=== PATIENT | female | born 1950 ===

== ENCOUNTER 2019-12-27 13:24 | Outpatient (REF) | payer MEDICARE, MEDICAID, SELFPAY ==
--- NOTE | 2019-12-27 | MM_ITS ---
EXAMINATION: MM SCREENING DIGITAL BREAST TOMOSYNTHESIS, BILATERAL CLINICAL INFORMATION: Screening. Asymptomatic. The lifetime risk of breast cancer based on the Tyrer-Cuzick Model is 3.3%. COMPARISON: Mammography: August 21, 2018 and studies dating back to January 20, 2016 TECHNIQUE: Digital breast tomosynthesis is performed in both the craniocaudal and mediolateral oblique views along with computer-aided detection (CAD). Synthesized 2D images are generated from the tomosynthesis. FINDINGS: There are scattered areas of fibroglandular density (ACR BI-RADS breast composition Category b). There are no significant masses, abnormal calcifications, or other abnormalities. MM/MM tomosynthesis screening BI IMPRESSION: There are no significant changes from prior study. ASSESSMENT: BI-RADS 1: Negative RECOMMENDATION: Routine annual mammography screening. This patient's information was entered into a reminder system with a target due date for their next mammogram.
== END 2019-12-27 13:25 | disposition home or self-care (01) ==
LOC: HO.MAMMO 13:24
PROVIDERS: PCP Internal Medicine; Visit Provider Internal Medicine
DX: Z12.31 Encounter for screening mammogram for malignant neoplasm of breast (principal)
CPT/HCPCS: 77063; 77067

== ENCOUNTER 2020-05-08 11:56 | Outpatient (REF) | payer MEDICARE, MEDICAID, SELFPAY ==
--- NOTE | ~2020-05-08 | XR_ITS ---
EXAMINATION: XR LUMBOSACRAL SPINE CLINICAL INFORMATION: Back pain. COMPARISON: Radiographs lumbar spine 08/08/2017 TECHNIQUE: Three views of the lumbosacral spine. FINDINGS: There is vertebral segmentation anomaly with 4 rib-bearing lumbar vertebrae and probable bilateral L5 sacralization as noted previously. There is normal lumbar lordosis. The vertebral bodies are normal in height. There is no vertebral compression, spondylolisthesis, or destructive process. There are mild multilevel degenerative changes with mild lumbar vertebral spurring and some mild endplate sclerosis. No significant focal disc narrowing. There is mild facet degeneration lumbosacral junction. The SI joints and visualized sacrum appear normal. XR/XR lumbar spine 2-3V IMPRESSION: 1. Mild degenerative changes similar to 2018. 2. 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 3. No lumbar vertebral compression, spondylolisthesis, or destructive process.
[2020-05-08 13:25] LABS: MANUAL DIFF FLAG NO
[2020-05-08 13:31] LABS: Basophils Absolute Auto 0.1 X10*3/uL (0.0-0.2); Basophils Percent Auto 0.9 % (0-2); Eosinophils Absolute Auto 0.5 X10*3/uL (0.0-0.4); Eosinophils Percent Auto 6.6 % (0-4); Hematocrit 43.1 % (37-47); Hemoglobin 13.8 g/dl (12.0-16.0); Imm Gran Abs Auto 0.01 X10*3/uL (0.00-0.03); Imm Gran Pct Auto 0.1 % (0.0-0.4); Lymphocytes Percent Auto 25.7 % (20-40); Mean Corpuscular Hemoglobin 29.8 pg (27.0-33.0); Mean Corpuscular Volume 93.1 fL (80-98); Mean Platelet Volume 9.9 fL (9.4-12.3); Monocytes Absolute Auto 0.6 X10*3/uL (0.1-1.2); Monocytes Percent Auto 7.5 % (2-11); Neutrophils Absolute Auto 4.5 X10*3/uL (2.0-8.3); Neutrophils Percent Auto 59.2 % (45-73); Platelet Count 346 X10*3/uL (160-400); Red Blood Count 4.63 X10*6/uL (4.20-5.50); Red Cell Distribution Width 11.8 % (11.0-16.0); White Blood Count 7.7 X10*3/uL (4.8-10.8)
[2020-05-08 14:03] LABS: Alanine Aminotransferase 19 U/L (0-31); Albumin Level 4.2 g/dL (3.5-5.0); Alkaline Phosphatase 115 U/L (39-117); Anion Gap 12 (12-20); Aspartate Amino Transferase 24 U/L (5-31); Bilirubin Total 0.8 mg/dL (0.0-1.0); Blood Urea Nitrogen 11 mg/dL (9-16); Calcium 9.2 mg/dL (8.4-10.2); Carbon Dioxide 29 mmol/L (22-29); Chloride 106 mmol/L (96-108); Estimated Glomerular Filt Rate > 60; Glucose Fasting 94 mg/dL (60-99); Potassium 4.1 mmol/L (3.3-5.1); Sodium 143 mmol/L (135-145)
[2020-05-13 13:12] LABS: Vitamin D 25-OH, D2 65 ng/mL; Vitamin D 25-OH, D3 6 ng/mL; Vitamin D 25-OH, Total 71 ng/mL (30-100)
== END 2020-05-08 11:57 | disposition home or self-care (01) ==
LOC: HO.LAB 11:56
PROVIDERS: PCP Internal Medicine; Visit Provider Internal Medicine
DX: M54.9 Dorsalgia, unspecified (principal); E55.9 Vitamin D deficiency, unspecified; D64.9 Anemia, unspecified
CPT/HCPCS: 36415; 72100; 80053; 82306; 85025

== ENCOUNTER 2020-09-30 12:46 | Outpatient (REF) | payer MEDICARE, MEDICAID, SELFPAY ==
--- NOTE | ~2020-09-30 | MM_ITS ---
EXAMINATION: BONE DENSITOMETRY CLINICAL INDICATION: Postmenopausal. COMPARISON: Baseline BD dated 09/08/2018. TECHNIQUE: Using a [employer] DXA System (software version: 13.1) manufactured by [employer], dual-energy x-ray absorptiometry was performed of the lumbar spine and left hip. The images are of good technical quality. Summary results are attached. FINDINGS: AP SPINE L1-L3 (excluding L4): The data of L1-L4 has been changed to exclude the L4 vertebral body, because degenerative changes at this level may cause overestimation of lumbar spine density. Current: BMD 0.936 g/cm2, Z-score -0.4, T-score -1.9, osteopenia, 1.1% decrease from baseline (<5% change is not significant). Baseline: BMD 0.946 g/cm2. LEFT FEMUR, NECK: Current: BMD 0.797 g/cm2, Z-score -0.2, T-score -1.7, osteopenia. Baseline: BMD 0.799 g/cm2. LEFT FEMUR, TOTAL: Current: BMD 0.871 g/cm2, Z-score 0.2, T-score -1.1, osteopenia, 2.6% decrease from baseline (<5% change is not significant). Baseline: BMD 0.894 g/cm2. IDENTIFIED RISK FACTORS: Early menopause. Secondary osteoporosis. Hysterectomy. Bilateral oophorectomy. Low calcium intake. HISTORY OF FRACTURE: None listed. MEDICATIONS: Calcium. Vitamin D. MM/XR DEXA axial skeleton IMPRESSION: 1. DIAGNOSIS: Osteopenia based on the lowest T-score value of -1.9 in the lumbar spine applying World Health Organization criteria. 2. 10-YEAR FRACTURE RISK PREDICTION, FRAX: Major osteoporotic fracture (clinical spine, forearm, hip or shoulder) 5.6%. Hip fracture 0.8%. 3. Treatment Recommendations: NOF guidelines recommend consideration for treatment in postmenopausal women and men age 50 and older presenting with the following: -A hip or vertebral (clinical or morphometric) fracture. -T-score less than or equal to -2.5 at the femoral neck or spine after appropriate evaluation to exclude secondary causes. -Low bone mass at the hip or spine and a 10-year fracture probability by FRAX of greater than or equal to 3% for hip fracture or greater than or equal to 20% for major osteoporotic fracture based on the [place] adapted WHO algorithm. 4. Other Recommendations: All treatment decisions require clinical judgment and consideration of individual patient factors, including patient preferences, comorbidities, previous drug use, risk factors not captured in the FRAX model (e.g. frailty, falls, vitamin D deficiency, increased bone turnover, interval significant decline in bone density) and possible under or overestimation of fracture risk by FRAX. Additional medical evaluation for secondary cause of low bone mineral density may be appropriate. FUTURE SCAN RECOMMENDATION: People with diagnosed cases of osteoporosis or at high risk for fracture should have regular bone mineral density tests. For patients eligible for Medicare, routine testing is allowed once every 2 years. The testing frequency can be increased to one year for patients who have rapidly progressing disease, those who are receiving or discontinuing medical therapy to restore bone mass, or have additional risk factors.
[2020-09-30 13:49] LABS: MANUAL DIFF FLAG NO
[2020-09-30 14:07] LABS: Basophils Absolute Auto 0.1 X10*3/uL (0.0-0.2); Eosinophils Absolute Auto 0.3 X10*3/uL (0.0-0.4); Eosinophils Percent Auto 3.7 % (0-4); Hematocrit 40.7 % (37-47); Hemoglobin 13.1 g/dl (12.0-16.0); Imm Gran Abs Auto 0.01 X10*3/uL (0.00-0.03); Imm Gran Pct Auto 0.1 % (0.0-0.4); Lymphocytes Absolute Auto 1.6 X10*3/uL (1.2-4.9); Lymphocytes Percent Auto 22.4 % (20-40); Mean Corpuscular HGB Conc 32.2 g/dl (31.0-35.0); Mean Corpuscular Hemoglobin 29.6 pg (27.0-33.0); Mean Corpuscular Volume 92.1 fL (80-98); Mean Platelet Volume 9.4 fL (9.4-12.3); Monocytes Absolute Auto 0.6 X10*3/uL (0.1-1.2); Monocytes Percent Auto 8.5 % (2-11); Neutrophils Absolute Auto 4.7 X10*3/uL (2.0-8.3); Neutrophils Percent Auto 64.3 % (45-73); Platelet Count 392 X10*3/uL (160-400); Red Blood Count 4.42 X10*6/uL (4.20-5.50); Red Cell Distribution Width 11.6 % (11.0-16.0); White Blood Count 7.3 X10*3/uL (4.8-10.8)
[2020-09-30 14:51] LABS: Alanine Aminotransferase 20 U/L (0-31); Albumin Level 4.4 g/dL (3.5-5.0); Alkaline Phosphatase 111 U/L (39-117); Anion Gap 13 (12-20); Aspartate Amino Transferase 24 U/L (5-31); Bilirubin Total 0.6 mg/dL (0.0-1.0); Blood Urea Nitrogen 8 mg/dL (9-16); Calcium 9.6 mg/dL (8.4-10.2); Carbon Dioxide 26 mmol/L (22-29); Chloride 105 mmol/L (96-108); Cholesterol 183 mg/dL; Estimated Glomerular Filt Rate > 60; Glucose Fasting 91 mg/dL (60-99); HDL Cholesterol 60 mg/dL; LDL Cholesterol Calculated 111 mg/dl; Potassium 4.2 mmol/L (3.3-5.1); Sodium 140 mmol/L (135-145); Total Protein 7.1 g/dL (6.5-8.0); Triglycerides 61 mg/dL
[2020-10-04 13:43] LABS: Vitamin D 25-OH, D2 46 ng/mL; Vitamin D 25-OH, D3 10 ng/mL; Vitamin D 25-OH, Total 56 ng/mL (30-100)
== END 2020-09-30 12:47 | disposition home or self-care (01) ==
LOC: HO.MAMMO 12:46
PROVIDERS: PCP Internal Medicine; Visit Provider Internal Medicine
DX: Z13.820 Encounter for screening for osteoporosis (principal); Z78.0 Asymptomatic menopausal state; M85.80 Other specified disorders of bone density and structure, unspecified site; Z79.899 Other long term (current) drug therapy; Z98.890 Other specified postprocedural states; Z90.722 Acquired absence of ovaries, bilateral; D64.9 Anemia, unspecified; E66.09 Other obesity due to excess calories; Z68.30 Body mass index [BMI] 30.0-30.9, adult; E78.5 Hyperlipidemia, unspecified; E55.9 Vitamin D deficiency, unspecified
CPT/HCPCS: 36415; 77080; 80053; 80061; 82306; 85025

== ENCOUNTER 2021-01-05 15:07 | Outpatient (REF) | payer MEDICARE, MEDICAID, SELFPAY | END 2021-01-05 15:08 | disposition home or self-care (01) | LOC: HO.MAMMO 15:07 | PROVIDERS: PCP Internal Medicine; Visit Provider Internal Medicine | DX: Z13.89 Encounter for screening for other disorder (principal) ==

== ENCOUNTER 2021-02-09 11:25 | Outpatient (REF) | payer MEDICARE, MEDICAID, SELFPAY ==
--- NOTE | ~2021-02-09 | MM_ITS ---
EXAMINATION: MM SCREENING DIGITAL BREAST TOMOSYNTHESIS, BILATERAL CLINICAL INFORMATION: Screening. Asymptomatic. The lifetime risk of breast cancer based on the Tyrer-Cuzick Model is 4%. COMPARISON: Mammography: 12/27/2019, 08/21/2018, 08/08/2017 TECHNIQUE: Digital breast tomosynthesis is performed in both the craniocaudal and mediolateral oblique views along with computer-aided detection (CAD). Synthesized 2D images are generated from the tomosynthesis. FINDINGS: There are scattered areas of fibroglandular density (ACR BI-RADS breast composition Category b). There are no significant masses, abnormal calcifications, or other abnormalities. Parenchymal pattern is similar to prior studies. There is no developing density or architectural abnormality. The axilla and skin contours are unremarkable. No significant changes. MM/MM tomosynthesis screening BI IMPRESSION: No mammographic evidence of malignancy. ASSESSMENT: BI-RADS 1: Negative RECOMMENDATION: Routine annual mammography screening. This patient's information was entered into a reminder system with a target due date for their next mammogram.
== END 2021-02-09 11:26 | disposition home or self-care (01) ==
LOC: HO.MAMMO 11:25
PROVIDERS: Visit Provider Internal Medicine
DX: Z12.31 Encounter for screening mammogram for malignant neoplasm of breast (principal)
CPT/HCPCS: 77063; 77067

== ENCOUNTER 2021-09-22 14:27 | Emergency (ER) | payer MEDICARE, MEDICAID, SELFPAY ==
[2021-09-22 15:58] VITALS: BP 131/76; PULSE 92; RESP 14; TEMP 36.7; O2SAT 97; BMI 27.3
--- NOTE | 2021-09-22 16:13 | ED.BACK ---
HPI - Back Pain/Injury General Chief Complaint: Back Pain/Injury Stated Complaint: Lower back pain/L leg pain Time Seen by Provider: 09/22/21 16:08 Source: patient Mode of arrival: ambulatory Limitations: language barrier (Ethiopian-speaking medical education coordinator utilized) History of Present Illness HPI Narrative: Patient presents emergency department for evaluation of lower back pain radiating into the left leg for 3 days. She denies any known injury or precipitating events to exacerbate this pain. Reports a history of chronic lower back pain due to herniated discs, but states that pain is not always radiating down her leg. Pain is described as a burning sensation. Denies recent precipitating injury, fevers, chills, burning with micturition, urinary frequency/urgency/hesitancy, bladder or bowel dysfunction, numbness or tingling of the perineum or bilateral legs. Denies any recent surgical procedures, any known immune compromising conditions, personal history of cancer, or IV drug usage. MD elicited complaint: back pain Related Data Previous Rx's Medication Instructions Recorded calcium carbonate 600 mg calcium 600 mg PO BID #180 tabs 07/18/21 (1,500 mg) tablet (Calcium) cane #1 ea 07/18/21 cholecalciferol (vitamin D3) 50 50 mcg PO DAILY 90 days #90 caps 09/16/21 mcg (2,000 unit) capsule clonazepam 1 mg tablet 1 mg PO BEDTIME PRN anxiety 30 09/16/21 days #30 tabs hydrocortisone 1 % topical cream 1 appl topical BID PRN skin 09/16/21 (Anti-Itch (hydrocortisone)) irritation 30 days #28.4 grams tramadol 50 mg tablet 50 mg PO BID PRN pain 30 days #60 09/16/21 tabs lidocaine 5 % topical patch 1 patch topical DAILY #15 ea 09/22/21 (Lidoderm) tizanidine 2 mg tablet 2 mg PO Q8H PRN muscle spasticity 09/22/21 #10 tabs Allergies Allergy/AdvReac Type Severity Reaction Status Date / Time naproxen Allergy Intermediate abdominal Verified 08/05/21 17:27 pain Review of Systems Review of Systems: Constitutional: No weight loss, fever, chills, weakness or fatigue. Skin: No rash or itching. Cardiovascular: No chest pain, chest pressure or chest discomfort. No palpitations or pedal edema. Respiratory: No shortness of breath, cough or sputum production. Gastrointestinal: No anorexia, nausea, vomiting or diarrhea. No abdominal pain Genitourinary: No burning micturition. No urinary frequency or incontinence. Neurologic: No headache, dizziness, syncope, unilateral weakness, ataxia, numbness or tingling in the extremities. No change in bowel or bladder control. Musculoskeletal: + Back pain as noted in HPI. No joint pain or stiffness. Lymphatics: No enlarged lymph nodes. [facility] Past Medical History Attestation statement: The following information was validated with the patient. Source: old records reviewed Medical History Back pain Chronic pain syndrome Depression with anxiety Hypovitaminosis D Obese Postmenopausal Surgical History S/P [id number] (total abdominal hysterectomy and bilateral salpingo-oophorectomy) Family History Family History Father No problems noted. Mother No problems noted. Sister Colon cancer Social History Social History Housing: Apartment Alcohol intake: never Patient Tobacco Use Status: Former Tobacco user Tobacco use type: Cigarette e-Cigarette/Vaping Use: Never Used Second Hand Smoke Exposure: No Advance Directives: No Advance Directives Information Provided: Yes service: No Current occupational status: unemployed Cognitive needs: No Hearing needs: No Vision needs: No Physical Exam Vital Signs: Vital Signs: Last Vital Signs Temp 98.2 F 09/22/21 16:58 Pulse 79 09/22/21 16:58 Resp 16 09/22/21 16:58 BP 118/74 09/22/21 16:58 Pulse Ox 98 09/22/21 16:58 O2 Del Method 09/22/21 16:58 BMI result Body Mass Index 27.3 Vital signs have been reviewed as normal and appeared to be correct. Blood pressure normal.? Heart rate normal.? Respiration rate normal. Temperature normal.? Oxygen saturation normal. Appearance: Alert.?Oriented to person, place and time. No acute distress.?Normal affect. Eyes: Pupils equal, round and reactive to light.? ENT: Pharynx normal.?? Neck: Normal inspection.? Neck supple.?? CVS: Heart sounds normal. Normal heart rate and rhythm.? Pulses normal; bilateral radial pulses 2+, bilateral posterior tibial/dorsalis pedis pulses 2+.? Respiratory: No respiratory distress.? Lung sounds clear to auscultation bilaterally?? Abdomen: Soft and non-tender. Skin: Skin warm and dry.? Normal skin color.? Extremities: No lower extremity edema.? No calf ttp? Back: + moderate left paraspinal muscular tenderness from lumbar region to coccyx. No CVA tenderness. No midline spinal tenderness, step-off's, or deformity. Full ROM intact in bilateral lower extremities. Straight leg test negative on right; Straight leg test positive on left. No rashes, lesions, areas of induration or fluctuance, or signs of infection noted., Neuro: Moves all extremities spontaneously. Sensation to light touch intact bilaterally. Patellar and Achilles reflex 2+ bilaterally. No ataxia, gait normal and steady. No focal neuro deficits. Course Course Course Narrative: Patient is a 70-year-old female with past medical history of chronic pain syndrome, chronic back pain, depression, anxiety, obesity who presents emergency department for evaluation of acute on chronic back pain with radiation down the left leg. Atraumatic, with no precipitating events. Pain is most consistent with muscular/ radicular pain, although cannot completely exclude herniated disc. On neurological exam there are no deficits. Not consistent with spinal fracture, spinal infection, epidural abscess, AAA, epidural abscess, or dissection. No high risk past medical history including incontinence, fever, immunosuppression, recent surgery or lumbar puncture, coagulopathy, significant trauma, recent unintentional weight loss, pulsatile mass, history of cancer, history of TB, history of IV drug use that would warrant MRI or CT. Not consistent with pyelonephritis, urinary tract infection, renal calculi, appendicitis, diverticulitis. On exam no concern for cauda equina syndrome. No imaging is currently indicated at this time. Plan for discharge home with noted arm patch, tizanidine, and advised gentle stretching, follow-up with primary care provider to discuss referral to a back specialist, and patient agreed with plan. All questions were answered, and patient was discharged home in stable condition, ambulatory out of emergency department steady gait. MDM - Back Pain/Injury Medical Records Attestation: I reviewed the patient's medical records. Lab Data Attestation: I reviewed the patient's lab results. Labs: Lab Results 09/22/21 Range/Units 17:01 Urine Color YELLOW Urine Appearance CLEAR Urine pH 6.0 (5.0-8.0) Ur Specific [place] 1.015 (1.005-1.025) Urine Protein NEG (NEG-TRACE) MG/DL Urine Glucose (UA) NEG (NEG) MG/DL Urine Ketones NEG (NEG) MG/DL Urine Blood NEG (NEG) Urine Nitrite NEG (NEG) Ur Leukocyte Esterase NEG (NEG) Discharge Plan Discharge Clinical Impression: Lumbar radiculopathy, right Patient Disposition: Home, Self-Care Instructions: Lumbar Radiculopathy (ED), Lower Back Exercises (ED) Additional Instructions: You have been given a new prescription for Lidoderm patches to use as needed to the area of pain leave on for 12 hours then remove for 12 hours. Additionally a been given a prescription for tizanidine to trial as needed for pain if the tramadol is not helping. This is a muscle relaxer, it may make you drowsy, use caution when taking this medication. Please contact your primary care provider to schedule a follow-up visit in 1 week and to discussed referral to a back specialist. Return to emergency department any new or worsening symptoms or concerns Prescriptions: New lidocaine [Lidoderm] 5 % adhesive patch,medicated 1 patch topical DAILY Qty: 15 0RF Rx Instructions: leave on most painful area for up to 12 hrs tizanidine 2 mg tablet 2 mg PO Q8H PRN (Reason: muscle spasticity) Qty: 10 0RF No Action (DME) cane Device See Rx Instructions .Route Qty: 1 0RF Rx Instructions: As directed calcium carbonate [Calcium 600] 600 mg calcium (1,500 mg) tablet 600 mg PO BID Qty: 180 1RF cholecalciferol (vitamin D3) 50 mcg (2,000 unit) capsule 50 mcg PO DAILY 90 Days Qty: 90 3RF clonazepam 1 mg tablet 1 mg PO BEDTIME PRN (Reason: anxiety) 30 Days Qty: 30 0RF hydrocortisone [Anti-Itch (HC)] 1 % cream 1 appl topical BID PRN (Reason: skin irritation) 30 Days Qty: 28.4 0RF tramadol 50 mg tablet 50 mg PO BID PRN (Reason: pain) 30 Days Qty: 60 0RF Interventions: ED Discharge Assessment Last Done: 09/22/21 17:39 Discharge Date/Time: 09/22/21 17:39
[2021-09-22 16:58] VITALS: BP 118/74; PULSE 79; RESP 16; TEMP 36.8; O2SAT 98
[2021-09-22 17:21] LABS: Appearance Urine CLEAR; Color Urine YELLOW; Glucose Urine UA NEG (NEG); Leukocyte Esterase Urine NEG (NEG); Nitrite Urine NEG (NEG); Specific Gravity - Urine 1.015 (1.005-1.025); Urine Blood NEG (NEG); Urine Ketones NEG (NEG); Urine Protein NEG (NEG-TRACE)
== END 2021-09-22 17:39 | disposition home or self-care (01) ==
PROVIDERS: Nurse Practitioner Family; Emergency Provider Emergency Medicine; PCP Internal Medicine
DX: M54.16 Radiculopathy, lumbar region (principal); G89.4 Chronic pain syndrome; M54.50 Low back pain, unspecified
CPT/HCPCS: 81003; 99283

== ENCOUNTER 2021-12-07 09:56 | Outpatient (REF) | payer OTHER, SELFPAY ==
--- NOTE | ~2021-12-07 | XR_ITS ---
EXAMINATION: XR LUMBOSACRAL SPINE WITH OBLIQUES CLINICAL INFORMATION: Lumbar radiculopathy. COMPARISON: None TECHNIQUE: AP, both oblique, and lateral views of the lumbar spine. Lateral view of the lumbosacral junction in flexion, neutral, and extension. FINDINGS: Examination demonstrates mild disc space narrowing at L4-L5 and L5-S1. Mild to moderate facet degenerative changes are present at L4-S1. No spondylolysis or spondylolisthesis is seen, including on flexion, neutral, and extension views. There is mild lumbar dextrocurvature. Vertebral body heights appear maintained. No lytic or sclerotic bony lesion is appreciated. The paraspinal soft tissues appear unremarkable. XR/XR lumbar spine 6V w bending IMPRESSION: Mild degenerative change.
--- NOTE | ~2021-12-07 | XR_ITS ---
EXAMINATION: XR SACROILIAC JOINTS CLINICAL INFORMATION: Sacroiliitis. COMPARISON: None TECHNIQUE: 3 views of the sacroiliac joints FINDINGS: Bones and soft tissues appear unremarkable. No fracture identified. Alignment is anatomic. Sacroiliac joint spaces appear well-maintained without erosions or surrounding sclerosis. XR/XR sacroiliac joint min 3V IMPRESSION: Normal unremarkable plain film examination of the joints.
== END 2021-12-07 09:57 | disposition home or self-care (01) ==
LOC: HO.XRAY 09:56
PROVIDERS: PCP Internal Medicine; Visit Provider Nurse Practitioner Family
DX: M54.16 Radiculopathy, lumbar region (principal); M46.1 Sacroiliitis, not elsewhere classified; M47.816 Spondylosis without myelopathy or radiculopathy, lumbar region; M51.36 Other intervertebral disc degeneration, lumbar region; G89.4 Chronic pain syndrome; M85.80 Other specified disorders of bone density and structure, unspecified site; E55.9 Vitamin D deficiency, unspecified
CPT/HCPCS: 72114; 72202; 99202

== ENCOUNTER → 2021-12-28 10:47 | Outpatient (BNVA) | payer OTHER, SELFPAY | PROVIDERS: PCP Internal Medicine; Visit Provider Nurse Practitioner Family | DX: M51.36 Other intervertebral disc degeneration, lumbar region (principal); M47.816 Spondylosis without myelopathy or radiculopathy, lumbar region; M54.16 Radiculopathy, lumbar region; M46.1 Sacroiliitis, not elsewhere classified; M62.838 Other muscle spasm; M25.552 Pain in left hip; G89.4 Chronic pain syndrome | CPT/HCPCS: Q3014 ==

== ENCOUNTER 2022-01-08 11:49 | Outpatient (REF) | payer OTHER, SELFPAY ==
--- NOTE | ~2022-01-08 | MR_ITS ---
EXAMINATION: MR LUMBAR SPINE WITHOUT CONTRAST CLINICAL INFORMATION: Lower back pain. Left leg pain. Difficulty walking. COMPARISON: Lumbar spine radiographs from 12/07/2021. TECHNIQUE: MRI of the lumbar spine was obtained using routine sequences without contrast. FINDINGS: Normal anatomic alignment. Moderate degenerative disc disease at L2-L3 and L4-L5. Mild degenerative disc disease at all additional levels. Associated mixed Modic type discogenic endplate changes including minimal Modic type I discogenic edema at L4-L5. Lipid rich hemangiomas within the L2, L3, and S1 vertebral bodies. No additional suspicious marrow edema. The vertebral body heights are well-maintained. The conus medullaris terminates at the level of L1-L2. The distal spinal cord is normal in appearance. Mild subcutaneous edema within the soft tissues of the back at the level of L4. No additional significant abnormalities of the paraspinal musculature. Mild prominence of the left greater than right renal pelvises and proximal ureters. Otherwise, limited evaluation of the intra-abdominal structures without significant abnormalities. The abdominal aorta is of normal contour and caliber. AXIAL SPINAL LEVELS: T12-L1: Normal annular contour. There is mild bilateral facet joint arthropathy. There is no neural foraminal stenosis. There is no spinal canal stenosis. L1-L2: Normal annular contour. There is no facet joint arthropathy. There is no neural foraminal stenosis. There is no spinal canal stenosis. L2-L3: Mild diffuse disc bulge with superimposed shallow left central disc protrusion. There is moderate right and mild left facet joint arthropathy. There is mild bilateral neural foraminal stenosis. There is no spinal canal stenosis. L3-L4: Mild diffuse disc bulge. There is moderate bilateral facet joint arthropathy. There is mild bilateral neural foraminal stenosis. There is no spinal canal stenosis. L4-L5: Mild diffuse disc bulge. There is moderate bilateral facet joint arthropathy. There is mild bilateral neural foraminal stenosis. There is narrowing of the subarticular zones with no overt spinal canal stenosis centrally. L5-S1: Shallow diffuse disc bulge. There is moderate bilateral facet joint arthropathy. There is mild bilateral neural foraminal stenosis. There is stenosis of the subarticular zones with no overt spinal canal stenosis centrally. MR/MR lumbar spine wo con IMPRESSION: Mild to moderate multilevel degenerative spondyloarthropathy of the lumbar spine as described in detail above. Most notably, there are narrowing/stenoses of the subarticular zones at L4-L5 and L5-S1. Mild neural foraminal stenoses from L2-S1. No overt spinal canal stenosis centrally. Nonspecific mild distention of the left greater than right renal pelvises and proximal ureters.
== END 2022-01-08 11:50 | disposition home or self-care (01) ==
LOC: HO.MRI 11:49
PROVIDERS: Visit Provider Nurse Practitioner Family
DX: M47.816 Spondylosis without myelopathy or radiculopathy, lumbar region (principal); M51.36 Other intervertebral disc degeneration, lumbar region; M54.16 Radiculopathy, lumbar region; M62.838 Other muscle spasm
CPT/HCPCS: 72148

== ENCOUNTER → 2022-02-04 15:08 | Outpatient (BNVA) | payer OTHER, SELFPAY | PROVIDERS: PCP Internal Medicine; Visit Provider Nurse Practitioner Family | DX: N13.30 Unspecified hydronephrosis (principal); M51.36 Other intervertebral disc degeneration, lumbar region; M62.838 Other muscle spasm; M47.816 Spondylosis without myelopathy or radiculopathy, lumbar region; M25.552 Pain in left hip; M54.16 Radiculopathy, lumbar region; M46.1 Sacroiliitis, not elsewhere classified; G89.4 Chronic pain syndrome | CPT/HCPCS: Q3014 ==

== ENCOUNTER 2022-02-17 06:08 | Outpatient (REF) | payer OTHER, SELFPAY ==
--- NOTE | ~2022-02-17 | FL_ITS ---
EXAMINATION: XR FLUOROSCOPY WITH IMAGES CLINICAL INFORMATION: Sacroiliitis. COMPARISON: None. TECHNIQUE: Fluoroscopy Supervised By: Grace. Fluoroscopy Time: 0.1. Cumulative Dose: 2.33 mGy . DAP: 0.288 Gycm2. Images: 2. FINDINGS: There are 2 digital images obtained of left SI joint for pain management. No gross bony deformity seen on these visualized images. FL/FL guidance in treatment room IMPRESSION: Fluoroscopy was provided to referrer for left SI joint injection.
== END 2022-02-17 06:09 | disposition home or self-care (01) ==
LOC: CF 06:08
PROVIDERS: Visit Provider Internal Medicine
DX: M46.1 Sacroiliitis, not elsewhere classified (principal)
CPT/HCPCS: 27096; J1020; J1040; J3301

== ENCOUNTER → 2022-02-19 09:00 | Outpatient (BNVA) | payer OTHER, SELFPAY | PROVIDERS: PCP Internal Medicine; Visit Provider Nurse Practitioner Family | DX: M51.36 Other intervertebral disc degeneration, lumbar region (principal); M47.816 Spondylosis without myelopathy or radiculopathy, lumbar region; M46.1 Sacroiliitis, not elsewhere classified; G89.4 Chronic pain syndrome; M54.16 Radiculopathy, lumbar region | CPT/HCPCS: Q3014 ==

== ENCOUNTER 2022-03-02 12:12 | Outpatient (REF) | payer OTHER, SELFPAY ==
--- NOTE | ~2022-03-02 | MM_ITS ---
EXAMINATION: MM SCREENING DIGITAL BREAST TOMOSYNTHESIS, BILATERAL CLINICAL INFORMATION: Screening. Asymptomatic. The lifetime risk of breast cancer based on the Tyrer-Cuzick Model is 3%. COMPARISON: Mammography: 02/09/2021, 12/27/2019, 08/21/2018 TECHNIQUE: Digital breast tomosynthesis is performed in both the craniocaudal and mediolateral oblique views along with computer-aided detection (CAD). Synthesized 2D images are generated from the tomosynthesis. FINDINGS: There are scattered areas of fibroglandular density (ACR BI-RADS breast composition Category b). Parenchymal pattern is similar to prior exams. There is no developing density or interval mass or architectural abnormality. No abnormal calcifications. The axilla are unremarkable. There is dermal lesion again seen overlying the posterior upper outer right breast. No significant changes. MM/MM tomosynthesis screening BI IMPRESSION: No mammographic evidence of malignancy. ASSESSMENT: BI-RADS 2: Benign RECOMMENDATION: Routine annual mammography screening. This patient's information was entered into a reminder system with a target due date for their next mammogram.
== END 2022-03-02 12:13 | disposition home or self-care (01) ==
LOC: HO.MAMMO 12:12
PROVIDERS: PCP Internal Medicine; Visit Provider Internal Medicine
DX: Z12.31 Encounter for screening mammogram for malignant neoplasm of breast (principal)
CPT/HCPCS: 77063; 77067

== ENCOUNTER → 2022-03-12 15:15 | Outpatient (BNVA) | payer OTHER, SELFPAY | PROVIDERS: PCP Internal Medicine; Visit Provider Nurse Practitioner Family | DX: M25.552 Pain in left hip (principal); M54.16 Radiculopathy, lumbar region; M47.816 Spondylosis without myelopathy or radiculopathy, lumbar region; M46.1 Sacroiliitis, not elsewhere classified; M51.36 Other intervertebral disc degeneration, lumbar region | CPT/HCPCS: 99212 ==

== ENCOUNTER 2022-03-15 11:55 | Outpatient (REF) | payer OTHER, SELFPAY ==
--- NOTE | ~2022-03-15 | XR_ITS ---
EXAMINATION: XR BILATERAL HIPS WITH AP PELVIS CLINICAL INFORMATION: Pain. COMPARISON: None TECHNIQUE: AP and frog-leg lateral views of each hip and an AP view of the pelvis. FINDINGS: The bones and soft tissues are normal. No fracture. Sacroiliac and hip joints are normal. Pubic symphysis is normal. No abnormal soft tissue calcifications. XR/XR hip BI w PEL1V IMPRESSION: Normal pelvis and hips.
== END 2022-03-15 11:56 | disposition home or self-care (01) ==
LOC: HO.XRAY 11:55
PROVIDERS: PCP Internal Medicine; Visit Provider Nurse Practitioner Family
DX: M47.816 Spondylosis without myelopathy or radiculopathy, lumbar region (principal); M25.552 Pain in left hip
CPT/HCPCS: 73521

== ENCOUNTER 2022-03-17 04:54 | Outpatient (REF) | payer OTHER, SELFPAY ==
--- NOTE | ~2022-03-17 | FL_ITS ---
EXAMINATION: XR FLUOROSCOPY WITH IMAGES CLINICAL INFORMATION: Bilateral lumbar injections. COMPARISON: None. TECHNIQUE: Fluoroscopy Supervised By: Grace Schneider. Fluoroscopy Time: 0.2. Dose 3.24 mGy DAP: 0.47 Gycm2. Images: 3. FINDINGS: There are 3 digital images obtained revealing needle positioned adjacent to bilateral L4 and L5 pedicles for pain management. Visualized bones are grossly unremarkable. FL/FL guidance in treatment room IMPRESSION: Fluoroscopy guidance was provided to referrer for pain management.
== END 2022-03-17 04:55 | disposition home or self-care (01) ==
LOC: CF 04:54
PROVIDERS: Visit Provider Internal Medicine
DX: M47.816 Spondylosis without myelopathy or radiculopathy, lumbar region (principal)
CPT/HCPCS: 64493; 64494

== ENCOUNTER → 2022-03-19 14:34 | Outpatient (BNVA) | payer OTHER, SELFPAY | PROVIDERS: PCP Internal Medicine; Visit Provider Nurse Practitioner Family | DX: G89.4 Chronic pain syndrome (principal); M51.36 Other intervertebral disc degeneration, lumbar region; M47.26 Other spondylosis with radiculopathy, lumbar region; M46.1 Sacroiliitis, not elsewhere classified; M25.552 Pain in left hip; Z98.890 Other specified postprocedural states | CPT/HCPCS: Q3014 ==

== ENCOUNTER 2022-04-13 12:03 | Outpatient (REF) | payer OTHER, SELFPAY ==
[2022-04-13 14:37] LABS: Blood Urea Nitrogen 10 mg/dL (9-16); Estimated Glomerular Filt Rate > 60
== END 2022-04-13 12:04 | disposition home or self-care (01) ==
LOC: HO.LAB 12:03
PROVIDERS: PCP Internal Medicine; Visit Provider Nurse Practitioner Family
DX: N13.30 Unspecified hydronephrosis (principal)
CPT/HCPCS: 36415; 82565; 84520; 99202

== ENCOUNTER 2022-05-03 10:09 | Outpatient (REF) | payer OTHER, SELFPAY ==
--- NOTE | ~2022-05-03 | US_ITS ---
EXAMINATION: US RETROPERITONEAL COMPLETE (RENAL) CLINICAL INFORMATION: Unspecified hydronephrosis. COMPARISON: Ultrasound kidneys and bladder 08/31/2019. X-ray abdomen KUB 08/27/2019. TECHNIQUE: Real-time imaging of the kidneys and bladder. FINDINGS: RIGHT KIDNEY: 10.5 x 4.3 x 4.7 cm (SAG x AP x TRV). The kidney is normal in size, contour, and echogenicity. Renal cortical thickness is normal. No renal calculi or focal parenchymal lesions. LEFT KIDNEY: 11.0 x 5.9 x 5.0 cm (SAG x AP x TRV). The kidney is normal in size, contour, and echogenicity. Renal cortical thickness is normal. No calculi or focal parenchymal lesions. No hydronephrosis. BLADDER: Well distended and normal. Bilateral ureteral jets are demonstrated. Prevoid bladder volume is 194 mL. Postvoid bladder volume is 29 mL. ADDITIONAL FINDINGS: Incidental note is made of an extremely heterogeneous appearing liver. US/US retroperitoneal comp IMPRESSION: 1. Normal-appearing kidneys. 2. The liver is very heterogeneous. Dedicated liver imaging with CT could be performed if clinically indicated.
== END 2022-05-03 10:10 | disposition home or self-care (01) ==
LOC: HO.US 10:09
PROVIDERS: PCP Internal Medicine; Visit Provider Nurse Practitioner Family
DX: N13.30 Unspecified hydronephrosis (principal)
CPT/HCPCS: 76770

== ENCOUNTER → 2022-05-10 10:50 | Outpatient (BNVA) | payer OTHER, SELFPAY | PROVIDERS: PCP Internal Medicine; Visit Provider Nurse Practitioner Family | DX: N13.30 Unspecified hydronephrosis (principal) | CPT/HCPCS: 99212 ==

== ENCOUNTER 2022-05-12 12:42 | Day surgery (SDC) | payer OTHER, SELFPAY ==
[2022-05-06 14:41] VITALS: BMI 28.9
--- NOTE | 2022-05-11 10:42 | HO.ANESPROP2 ---
Documented by User: Estella Monge NP 05/11/22 10:43 HPI - Anesthesia Eval Consult details Narrative: 71yo F for Left Hip Intra-Articular Steroid Injection PMFSH Active Problems Active Problems: All Active Problems (Updated 02/04/22 @ 15:30 by KASSI Nava) Hydronephrosis (Acute) Physical exam (Acute) Left hip pain (Acute) Muscle spasm (Acute) Lumbar degenerative disc disease (Acute) Sacroiliitis (Acute) Lumbar spondylosis (Acute) Left lumbar radiculitis (Acute) KEZIA (generalized anxiety disorder) (Acute) Postmenopausal (Acute) Back pain (Acute) Obese (Acute) Chronic pain syndrome (Acute) Hypovitaminosis D (Acute) Depression with anxiety (Acute) Past Medical History Medical History Anemia Back pain Chronic pain syndrome Depression with anxiety Hypovitaminosis D Obese Osteopenia Postmenopausal Family History Family History Father No problems noted. Mother No problems noted. Sister Colon cancer Surgical History Surgical History S/P FARRAH-BSO (total abdominal hysterectomy and bilateral salpingo-oophorectomy) Social History Social History Housing: Apartment Alcohol intake: never Patient Tobacco Use Status: Former Tobacco user Quit Date: 7 YRS AGO Tobacco use type: Cigarette e-Cigarette/Vaping Use: Never Used Second Hand Smoke Exposure: No service: No Current occupational status: unemployed Cognitive needs: Yes Hearing needs: No Vision needs: No Meds Allergies Allergy/AdvReac Type Severity Reaction Status Date / Time naproxen Allergy Intermediate abdominal Verified 05/10/22 11:17 pain ibuprofen [From Motrin] AdvReac Mild stomach Verified 05/10/22 11:17 pain Home Medications Medication Instructions Recorded Confirmed Last Taken Type cholecalciferol (vitamin D3) 50 50 mcg PO DAILY 05/12/22 05/12/22 Unknown History mcg (2,000 unit) capsule Exam Exam Date and Time: May 11, 2022 1042 Height,Weight and Vital Signs: Height 5 ft Weight 67.132 kg Pertinent Lab Results Pertinent Lab Results: Laboratory Tests 04/13/22 13:33 BUN 10 Creatinine 0.65 Assessment and Plan Assessment Anesthesia Assessment: Chart Reviewed Documented by User: Deana Pratt MD 05/12/22 14:56 [facility] Past Medical History Medical History Anemia Back pain Chronic pain syndrome Depression with anxiety Hypovitaminosis D Obese Osteopenia Postmenopausal Family History Family History Father No problems noted. Mother No problems noted. Sister Colon cancer Family history of problems with anesthesia: No Surgical History Surgical History S/P FARRAH-BSO (total abdominal hysterectomy and bilateral salpingo-oophorectomy) History of Problems with Anesthesia: No Social History Social History Housing: Apartment Alcohol intake: never Patient Tobacco Use Status: Former Tobacco user Quit Date: 7 YRS AGO Tobacco use type: Cigarette e-Cigarette/Vaping Use: Never Used Second Hand Smoke Exposure: No service: No Current occupational status: unemployed Cognitive needs: Yes Hearing needs: No Vision needs: No Meds Allergies Allergy/AdvReac Type Severity Reaction Status Date / Time naproxen Allergy Intermediate abdominal Verified 05/10/22 11:17 pain ibuprofen [From Motrin] AdvReac Mild stomach Verified 05/10/22 11:17 pain Home Medications Medication Instructions Recorded Confirmed Last Taken Type cholecalciferol (vitamin D3) 50 50 mcg PO DAILY 05/12/22 05/12/22 Unknown History mcg (2,000 unit) capsule Exam Height,Weight and Vital Signs: Height 5 ft Weight 67.132 kg Vital Signs Temp Pulse Resp BP Pulse Ox O2 Del Method 05/12/22 13:08 98.6 F 83 15 119/76 97 Room Air Airway Mallampati Class: II TM Dist: >3cm Neck ROM: Full Loose/Missing/Broken Teeth: No (Denies broken, loose, missing teeth) Heart: RRR Lungs: CTAB Assessment and Plan Assessment Anesthesia Assessment: Anesthesia Plan Discussed Final Anesthetic Review Family History of Problems with Anesthesia: No History of Problems with Anesthesia: No NPO: Yes ASA Class: II Final Preanesthetic Review: No Changes in Pt Med Stat, Meds/Allgs Chart Reviewed, Consent Obtained/Reviewed and Anes Risks/Benef Reviewed Patient Risk: Low Procedure Risk: Low Assessment/Block/Sedation in SS: Assess/Block/Sedation-SS Anesthetic Plan Anesthetic Plan: MAC: Disposition: Standard PACU
--- NOTE | ~2022-05-12 | FL_ITS ---
EXAMINATION: XR FLUOROSCOPY WITH IMAGES CLINICAL INFORMATION: Hip pain. Injection, pain management. COMPARISON: Radiographs pelvis and hips 03/15/2022. TECHNIQUE: Fluoroscopy Supervised By: Dr. Arnoldo Mancia. Fluoroscopy Time: 0.2 minutes. Cumulative Dose: 4.14 mGy. DAP: 1.13 Gycm2. Images: 1. FINDINGS: There is a spinal needle with tip overlying the left mid femoral neck. There is intracapsular contrast left hip joint capsule. FL/FL guidance in OR IMPRESSION: Fluoroscopy for pain management procedure.
[2022-05-12 13:00] VITALS: BMI 27.3
[2022-05-12 13:08] VITALS: BP 119/76; PULSE 83; RESP 15; TEMP 37; O2SAT 97
[2022-05-12] MEDS: Lactated Ringers 1,000 ML 100 ML IVCONT (13:24)
--- NOTE | 2022-05-12 14:25 | P.BOP_ITS ---
Brief Operative Note Date of Service: 05/12/22 Pre-op diagnosis: Left hip pain Post-op diagnosis: same Procedure: Left hip intra-articular steroid injection Implants: None Surgeon: Arnoldo Mancia MD Anesthesia: MAC Was an Manager Switch used for this Procedure?: No Estimated blood loss (mL): 1 Pathology: none sent Condition: stable Disposition: PACU
--- NOTE | 2022-05-12 14:25 | MHC.SHP ---
Pre-Procedural Eval Section A Date of Service: 05/12/22 The patient is an INPATIENT: No Changes since office visit: Yes Patient answered all questions The History & Physical has been completed within 30 days and I have reviewed it.: No Section B Chief Complaint: Pain in left hip Relevant Family History (Specify if Yes): Yes Relevant Social History: None Present Medications: see Short Stay Collaborative assessment Medical History: No relevant PMH History of Previous Operations: No relevant previous surgery Allergies: Allergies Allergy/AdvReac Type Severity Reaction Status Date / Time naproxen Allergy Intermediate abdominal Verified 05/10/22 11:17 pain ibuprofen [From Motrin] AdvReac Mild stomach Verified 05/10/22 11:17 pain Review of Systems Sugical H&P ROS: Negative: Constitution, Cardiovascular and Respiratory Exam Surgical H&P Exam: Normal: HEENT, Normal: Heart and Normal: Lungs Plan Diagnosis/Plan: Unchanged I have reviewed the history and physical and performed a pertinent physical examination on my patient. No changes have occurred unless specified. Time Spent With Patient Time: Total time managing care of this patient today ____ minutes.
--- NOTE | 2022-05-12 14:26 | P.OP_ITS ---
Operative Note Operative Note Date of Service: 05/12/22 Narrative: Hip Intra-articular Injection, fluoroscopy guided, Left After informed written consent was obtained, the patient was placed in the supine position. Pre-procedure oxygen saturation, heart rate, and blood pressure were recorded. The skin was prepped with Chloroprep, and draped in a sterile fashion. With the use of fluroscopy the hip joint was identified. With a 25- gauge 1.5 hypodermic needle 0.75% lidocaine was injected subcutaneously over the entry site. A 22-gauge 3.5 spinal needle was then advanced toward the junction of the joint capsule and femoral neck, away from vascular structures based on manual palpation. Once in position, and after negative aspiration, 2 mL of Omnipaque was injected outlining the joint capsule followed by injection of 60 mg Depo Medrol mixed with 0.5% bupivacaine (3mL total). There was no evidence of paresthesias throughout needle placement. The stylet was replaced and then the needle was withdrawn. The patient tolerated the procedure well and there was no evidence of procedural complications. EBL: <1cc
[2022-05-12 14:50] VITALS: BP 123/69; PULSE 83; RESP 16; TEMP 36.6; O2SAT 95
[2022-05-12 15:05] VITALS: BP 129/78; PULSE 87; RESP 18; O2SAT 97
[2022-05-12 15:20] VITALS: BP 140/83; PULSE 77; RESP 12; O2SAT 99
[2022-05-12 15:35] VITALS: BP 115/75; PULSE 79; RESP 16; TEMP 36.6; O2SAT 99
== END 2022-05-12 16:10 | disposition home or self-care (01) ==
PROVIDERS: PCP Internal Medicine; Visit Provider Internal Medicine
PROC: (CPT 20610; principal; 2022-05-12 14:10)
DX: M25.552 Pain in left hip (principal); G89.4 Chronic pain syndrome; M51.36 Other intervertebral disc degeneration, lumbar region; M85.80 Other specified disorders of bone density and structure, unspecified site; R20.0 Anesthesia of skin; F41.8 Other specified anxiety disorders; E55.9 Vitamin D deficiency, unspecified; M47.816 Spondylosis without myelopathy or radiculopathy, lumbar region; M46.1 Sacroiliitis, not elsewhere classified; Z79.899 Other long term (current) drug therapy; Z88.8 Allergy status to other drugs, medicaments and biological substances; Z87.891 Personal history of nicotine dependence
CPT/HCPCS: 20610; J1040; J2250; J3010

== ENCOUNTER → 2022-06-14 08:55 | Outpatient (BNVA) | payer OTHER, SELFPAY | PROVIDERS: PCP Internal Medicine; Visit Provider Nurse Practitioner Family | DX: M54.16 Radiculopathy, lumbar region (principal); M25.552 Pain in left hip; M79.604 Pain in right leg; M79.605 Pain in left leg; M46.1 Sacroiliitis, not elsewhere classified; M51.36 Other intervertebral disc degeneration, lumbar region; M47.816 Spondylosis without myelopathy or radiculopathy, lumbar region; G89.4 Chronic pain syndrome | CPT/HCPCS: 99212 ==

== ENCOUNTER → 2022-07-14 09:16 | Outpatient (REF) | payer OTHER, SELFPAY ==
--- NOTE | ~2022-07-14 | NM_ITS ---
EXAMINATION: NM BONE SCAN OF THE WHOLE BODY CLINICAL INFORMATION: 71-year-old female with multiple joint pain, chronic pain syndrome, bilateral anterior lower extremity pain and lower back pain with radiculopathy and significant left hip and groin pain with normal radiographs. COMPARISON: Radiographs of both hips including the pelvis done on 03/15/2022 and MRI of the lumbar spine and radiographs of the lumbar spine and sacroiliac joints done on 01/08/2022 and 12/07/2021 respectively. TECHNIQUE: Multiple gamma scintillation camera images of the whole body were performed 2.75 hours following the intravenous administration of 24.0 mCi Tc-99m MDP. The radiotracer was injected through right antecubital superficial vein without complications. FINDINGS: In the head, unremarkable. In the thoracic cage and upper extremities, no focal abnormalities. In the spine, asymmetric mild focal abnormal increased radiotracer activity is noted at L5 to the right of the midline best seen on the posterior projection, most consistent with degenerative spondylosis. In the pelvis, no suspicious focal lesion. In the lower extremities, mild periarticular increased radiotracer activities around both ankle and both feet likely represent posttraumatic and/or arthritic changes. No other definite bony abnormalities are noted. The urinary bladder and faint visualization of both kidneys are noted. NM/NM bone scan whole body IMPRESSION: 1. Mild asymmetric abnormal increased radiotracer activity is seen at L5 to the right of the midline, most consistent with degenerative spondylosis. 2. Mild increased radiotracer activities around both ankle and both feet likely represent posttraumatic and/or arthritic changes. 3. Otherwise unremarkable study.
== END ==
LOC: HO.NUCMED 09:16
PROVIDERS: PCP Internal Medicine; Visit Provider Nurse Practitioner Family
DX: M54.16 Radiculopathy, lumbar region (principal); M79.604 Pain in right leg; M79.605 Pain in left leg; G89.4 Chronic pain syndrome; M25.552 Pain in left hip; M46.1 Sacroiliitis, not elsewhere classified; M51.36 Other intervertebral disc degeneration, lumbar region
CPT/HCPCS: 78306; A9503

== ENCOUNTER 2022-07-21 08:08 | Outpatient (REF) | payer OTHER, SELFPAY ==
--- NOTE | 2022-07-21 08:20 | EMG_ITS ---
Please see scanned EMG / Nerve Conduction Report. MTDD
== END 2022-07-21 08:09 | disposition home or self-care (01) ==
LOC: HO.NEURO 08:08
PROVIDERS: PCP Internal Medicine; Visit Provider Nurse Practitioner Family
DX: G89.4 Chronic pain syndrome (principal); M54.16 Radiculopathy, lumbar region; M79.604 Pain in right leg; M79.605 Pain in left leg
CPT/HCPCS: 95886; 95911

== ENCOUNTER 2022-07-23 12:42 | Emergency (ER) | payer OTHER, SELFPAY ==
--- NOTE | ~2022-07-23 | US_ITS ---
EXAMINATION: US ABDOMEN LIMITED CLINICAL INFORMATION: Right upper quadrant abdominal pain. COMPARISON: None available. TECHNIQUE: Real-time imaging of the right upper quadrant abdominal viscera. FINDINGS: PANCREAS: Not visualized. LIVER: Coarse in echotexture without focal abnormality.. GALLBLADDER: Unremarkable. COMMON BILE DUCT: Normal in caliber measuring 0.6 cm in diameter. FREE FLUID: None. US/US abdomen limited IMPRESSION: Heterogeneous hepatic echotexture is nonspecific, but can be seen with cirrhosis is suggested. No focal abnormality. Correlate with patient history and liver function tests.
[2022-07-23 13:37] VITALS: BP 138/82; PULSE 78; RESP 18; TEMP 36.6; O2SAT 97; BMI 34.7
--- NOTE | 2022-07-23 13:37 | ED_ITS ---
HPI - General Adult General Chief complaint: Abdominal Pain Stated complaint: Back pain/Liver pain Time Seen by Provider: 07/23/22 16:09 Source: patient and medical interpreter Mode of arrival: ambulatory Limitations: language barrier History of Present Illness HPI narrative: 71-year-old female with a past medical history of chronic back pain presents to the ER with complaints of intermittent right upper quadrant abdominal pain radiating to right back for the last few weeks. Patient reports she was seen at [facility] for similar complaints and had a CT scan which showed a cirrhotic liver and several liver lesions. Patient reports she followed up with her primary care doctor and has a follow-up appointment with Gastroenterology on either July 27 or August 26. She cannot recall the name of the [place] stroenterologist that she will be seeing. Patient reports she has had intermittent pain since her ER visit. Pain is worsened with eating. Pain is also worsened at night time with lying flat. Patient denies any associated vomiting, diarrhea, fevers. Patient does suffer from constipation about reports she had a bowel movement this morning. Patient denies any current alcohol or former alcohol use. She denies any current substance use or former substance use. Related Data Home Medications Medication Instructions Recorded Confirmed cholecalciferol (vitamin D3) 50 50 mcg PO DAILY 05/12/22 07/05/22 mcg (2,000 unit) capsule Previous Rx's Medication Instructions Recorded cane #1 ea 07/18/21 tizanidine 2 mg tablet 2 mg PO Q8H PRN muscle spasticity 12/28/21 30 days #90 tabs calcium carbonate 250 mg-vitamin 1 tab PO BID 90 days #180 tabs 05/17/22 D3 3.125 mcg (125 unit) tablet (Oyster Shell Calcium-Vitamin D3) eflornithine 13.9 % topical cream 1 appl topical BID 30 days #45 05/17/22 (Vaniqa) grams lidocaine 5 % topical patch 2 patch topical DAILY pain 30 days 06/14/22 #30 ea gabapentin 300 mg capsule 300 mg PO BEDTIME for pain 30 days 07/15/22 #30 caps clonazepam 1 mg tablet 1 mg PO BEDTIME PRN anxiety 30 07/16/22 days #30 tabs diclofenac sodium 1 % topical gel 4 g topical QID pain #180 grams 07/16/22 (Arthritis Pain (diclofenac)) hydrocortisone 1 % topical cream 1 appl topical BID PRN skin 07/16/22 (Anti-Itch (hydrocortisone)) irritation 30 days #28.4 grams tramadol 50 mg tablet 50 mg PO BID PRN pain 30 days #60 07/16/22 tabs Allergies Allergy/AdvReac Type Severity Reaction Status Date / Time naproxen Allergy Intermediate abdominal Verified 07/23/22 13:36 pain ibuprofen [From Motrin] AdvReac Mild stomach Verified 07/23/22 13:36 pain Review of Systems Review of Systems: Yes all other systems are reviewed and are negative Constitutional: Constitutional: Reports no additional constitutional complaints, Denies body ache(s), Denies chills, Denies fever(s), Denies headache(s) and Denies weakness Eyes: Eyes: Reports no additional eye complaints and Denies change in vision ENT: Reports system reviewed and no additional complaints, except as documented, Denies dizziness, Denies headache(s), Denies nasal congestion, Denies nasal discharge and Denies neck pain Cardiovascular: Cardiovascular: Reports no additional cardiovascular complaints, Denies chest pain, Denies leg edema and Denies dyspnea Respiratory: Respiratory: Reports no additional respiratory complaints, Denies cough and Denies dyspnea Gastrointestinal: Gastrointestinal: Reports no additional gastrointestinal complaints, Reports abdominal pain, Denies diarrhea, Denies nausea and Denies vomiting Genitourinary: Genitourinary: Reports no additional female genitourinary complaints and Denies urinary incontinence Musculoskeletal: Musculoskeletal: Reports no additional musculoskeletal complaints, Reports back pain, Denies arthralgias, Denies joint swelling, Denies neck pain, Denies numbness and Denies tingling Integumentary/Breasts: Skin/Breast: Reports system reviewed and no additional complaints, except as docu and Denies rash Neurologic: Reports system reviewed and no additional complaints, except as documented, Denies dizziness, Denies headache(s), Denies numbness, Denies tingling and Denies weakness [facility] Past Medical History Attestation statement: The following information was validated with the patient. Source: old records reviewed and nursing notes reviewed Medical History Anemia Back pain Chronic pain syndrome Depression with anxiety Hypovitaminosis D Obese Osteopenia Postmenopausal Surgical History S/P [id number] (total abdominal hysterectomy and bilateral salpingo-oophorectomy) Family History Family History Father No problems noted. Mother No problems noted. Sister Colon cancer Social History Social History Housing: Apartment Alcohol intake: former Patient Tobacco Use Status: Former Tobacco user Quit Date: 7 YRS AGO Tobacco use type: Cigarette Smoked in Last 30 Days: No e-Cigarette/Vaping Use: Never Used Second Hand Smoke Exposure: No Use of substances other than those prescribed or required for medical reasons: No Advance Directives: No Advance Directives Information Provided: No service: No Current occupational status: unemployed Cognitive needs: Yes Hearing needs: No Vision needs: No Physical Exam ED Vital Signs: Vital Signs - 24 hr 07/23/22 13:37 07/23/22 16:12 07/23/22 17:20 Temperature 97.9 F Pulse Rate 78 76 Respiratory Rate 18 14 12 Blood Pressure 138/82 140/82 H Pulse Oximetry 97 97 Oxygen Delivery Method Room Air 07/23/22 18:25 Temperature Pulse Rate 68 Respiratory Rate 18 Blood Pressure 121/70 Pulse Oximetry 98 Oxygen Delivery Method Room Air BMI result Body Mass Index 34.7 Const General: cooperative, healthy appearing, comfortable and no acute distress Orientation/consciousness: patient oriented x3 Limitations: no limitations HENMT Head: Yes normal to inspection Ears: hearing grossly normal bilaterally Eyes General: appearance normal, both eyes and all related structures Pupils: Equal, round and reactive pupils present Neck Neck: Yes normal visual inspection and Yes full ROM Chest Chest palpation & inspection: normal inspection of the chest Resp Effort & Inspection: normal respiratory effort Auscultation: clear to auscultation bilaterally Cardio Rate: regular rate Rhythm: regular rhythm Peripheral pulses: Peripheral pulses 2+ throughout GI Inspection: Yes normal to inspection Palpation (GI): Soft to palpation and Tenderness to palpation present (GI) (no rebound or guarding ) in the RUQ Auscultation: normal bowel sounds General: Yes no CVA tenderness Back/Spine/Pelvis Back: no CVA tenderness Thoracic/Lumbar Spine: thoracic and lumbar spine normal to inspection Skin General skin exam: no rashes or lesions noted Neuro General: patient oriented x3 and moves all extremities Cranial nerves: Yes Equal, round and reactive pupils present Cognition (Neuro): normal cognition Gait exam (Neuro): Normal gait present Extrem General: Yes normal to inspection, Yes no pedal edema and Yes no calf tenderness Course Course Course Narrative: This is an RME: Additional HPI, ROS, PE not included below will be deferred to primary provider. This is a 81-[id number]-Jamaican-speaking female, presenting to the emergency department with complaints of RUQ abdominal pain radiating into her back for the last 2 weeks, worsening pain over the last two days. Hx of similar symptoms went to [facility] for this pain and was told that she has something in the liver , has not heard anything else. Review of records reveal CT scan performed on June 22 revealing cirrhotic liver and multiple tiny low density lesion is recommending MRI without and with contrast. VSS. Patient stable to return back to the waiting room until treatment room becomes available Main Emergency Department. Plan: Labs and UA ordered. Reevaluation(s) Reevaluation #1: Labs are unremarkable. UA is negative for infection. Ultrasound shows a cirrhotic appearing liver with a normal gallbladder. Pain is well controlled. Patient is tolerating p.o. with no vomiting. Consider biliary dyskinesia. Patient has upcoming follow-up with GI. We discussed that she should further follow-up with them to evaluate her cirrhotic appearing liver and liver lesions as well as consideration for biliary dyskinesia. Reviewed worrisome signs and symptoms of when to return to the emergency room. Comfortable plan for discharge home. Medications Administered Discontinued Medications Generic Name Dose Route Start Last Admin Trade Name Jose Aq PRN Reason Stop Dose Admin Morphine Sulfate 4 mg 07/23/22 16:49 07/23/22 17:20 Morphine Sulfate 4 Mg/Ml Cartridge IVPUSH 07/23/22 16:50 4 mg ONCE ONE Administration Protocol Tramadol HCl 50 mg 07/23/22 18:36 07/23/22 18:47 Tramadol Hcl 50 Mg Tablet PO 07/23/22 18:37 50 mg ONCE ONE Administration Medical Decision Making Medical Decision Making [facility] Narrative: 71-year-old female who presents to the ER with complaints of intermittent right upper quadrant pain which radiates to her right back for the last few weeks which is worsened with lying flat and eating food. Patient with recent ER visit and had a CT scan which showed a cirrhotic liver and several liver lesions with recommendations to follow-up outpatient with GI and for a MRI of the abdomen. Patient does have an appointment coming up with GI but reports pain has continued. Patient has no associated symptoms. On exam patient with tenderness the right upper quadrant with no rebound or guarding. Vitals are stable. Will obtain labs, UA, abdominal ultrasound, EKG Differential Diagnosis Differential Diagnoses: The differential diagnosis associated with the presentation includes Considered GERD, cholelithiasis, cholecystitis, biliary dyskinesia, renal colic, pyelonephritis, ACS, aortic dissection Lab Data MDM Lab Attestation statement: I reviewed the patient's lab results. 07/23/22 13:54 07/23/22 13:54 Labs: Lab Results 07/23/22 07/23/22 07/23/22 Range/Units 13:54 13:54 13:54 WBC 7.8 (4.8-10.8) X10*3/uL RBC 4.50 (4.20-5.50) X10*6/uL Hgb 12.5 (12.0-16.0) g/dl Hct 40.2 (37.0-47.0) % MCV 89.3 (80.0-98.0) fL MCH 27.8 (27.0-33.0) pg MCHC 31.1 (31.0-35.0) g/dl RDW 12.6 (11.0-16.0) % Plt Count 405 H (160-400) X10*3/uL MPV 9.1 L (9.4-12.3) fL Immature Gran % (Auto) 0.3 (0.0-0.4) % Neut % (Auto) 54.4 (45-73) % Lymph % (Auto) 28.8 (20-40) % [place] % (Auto) 9.7 (2-11) % Eos % (Auto) 5.7 H (0-4) % Baso % (Auto) 1.1 (0-2) % Lymph # (Auto) 2.3 (1.2-4.9) X10*3/uL [place] # (Auto) 0.8 (0.1-1.2) X10*3/uL Eos # (Auto) 0.5 H (0.0-0.4) X10*3/uL Baso # (Auto) 0.1 (0.0-0.2) X10*3/uL Abs Immat Gran (auto) 0.02 (0.00-0.03) X10*3/uL Absolute Neuts (auto) 4.3 (2.0-8.3) x10*3/uL Absolute Nucleated RBC 0.000 (0.0-0.012) X10*3/uL Nucleated RBC % (auto) 0.0 (0.0-0.2) /100WBC Sodium 141 (135-145) mmol/L Potassium 4.4 (3.3-5.1) mmol/L Chloride 104 (96-108) mmol/L Carbon Dioxide 27 (22-29) mmol/L Anion Gap 14 (12-20) BUN 6 L (9-16) mg/dL Creatinine 0.67 (0.5-1.4) mg/dL Estim Creat Clear Calc 59.3 Estimated GFR > 60 Random Glucose 87 (60-115) mg/dL Calcium 9.5 (8.4-10.2) mg/dL Total Bilirubin 0.4 (0.0-1.0) mg/dL Direct Bilirubin 0.1 (0.0-0.5) mg/dL AST 20 (5-31) U/L ALT 11 (0-31) U/L Alkaline Phosphatase 126 H (39-117) U/L Total Protein 7.1 (6.5-8.0) g/dL Albumin 4.2 (3.5-5.0) g/dL Lipase 19 (8-78) U/L Urine Color Yellow Urine Appearance Clear Urine pH 5.5 (5.0-9.0) Ur Specific [place] 1.010 (1.005-1.025) Urine Protein Negative (Neg-Trace) mg/dL Urine Glucose (UA) Negative (Negative) mg/dL Urine Ketones Negative (Negative) mg/dL Urine Blood Negative (Negative) Urine Nitrite Negative (Negative) Ur Leukocyte Esterase Negative (Negative) Independent Interpretation I performed an independent interpretation of an: EKG and Ultrasound Interpretation: I independetely reviewed the EKG which shows normal sinus rhythm with a rate 82, normal KS, normal QRS, normal QT I independently reviewed the ultrasound agree with radiologist's report Radiology Impression Discussion of test interpretation with radiology: I have reviewed the radiologist's reading. Radiologist Impression: [facility] [place] [facility] [address] [place] [address] Ultrasound Report Signed Patient: Laura Wang MR#: [id number] : 1950 Acct:[id number] Age/Sex: 71 / F ADM Date: 07/23/22 Loc: HO.ED Attending Dr: Ordering Physician: Love Menendez NP Date of Service: 07/23/22 Procedure(s): US abdomen limited Accession Number(s): [id number] cc: Love Menendez NP~ EXAMINATION: US ABDOMEN LIMITED CLINICAL INFORMATION: Right upper quadrant abdominal pain. COMPARISON: None available. TECHNIQUE: Real-time imaging of the right upper quadrant abdominal viscera. FINDINGS: PANCREAS: Not visualized. LIVER: Coarse in echotexture without focal abnormality.. GALLBLADDER: Unremarkable. COMMON BILE DUCT: Normal in caliber measuring 0.6 cm in diameter. FREE FLUID: None. US/US abdomen limited IMPRESSION: Heterogeneous hepatic echotexture is nonspecific, but can be seen with cirrhosis is suggested. No focal abnormality. Correlate with patient history and liver function tests. Discharge Plan Discharge Clinical Impression: Abdominal pain Patient Disposition: Home, Self-Care Instructions: Abdominal Pain (ED) Additional Instructions: Chaudhari ultrasonido muestra cirrosis de chaudhari h?gado con varias lesiones observadas. Se recomienda que contin?e el seguimiento con Gastroenterolog?a sloane paciente ambulatorio y que se haya realizado joel resonancia magn?gerardo ambulatoria. Fabi s?ntomas pueden estar relacionados con joel ves?cula biliar que no funciona sloane deber?a. [place] puede ser evaluado m?s a fondo por el ambulatorio de Gastroenterolog?a. Limite la grasa en chaudhari dieta. Discutimos estos cambios en la dieta. Your ultrasound shows cirrhosis of your liver with several lesions noted.? It is recommended that you continue to follow-up with Gastroenterology (as scheduled) outpatient and had a outpatient MRI.? Your symptoms may be related to a gall bladder which is not functioning the way that it should.? This can be evaluated further by Gastroenterology outpatient.? Limit fat in your diet.? We discussed these dietary changes. Prescriptions: No Action (DME) cane Device See Rx Instructions .Route Qty: 1 0RF Rx Instructions: As directed calcium carbonate-vitamin D3 [Oyster Shell Calcium-Vit D3] 250 mg-3.125 mcg (125 unit) tablet 1 tab PO BID 90 Days Qty: 180 1RF Vaniqa 13.9 % cream 1 appl topical BID 30 Days Qty: 45 0RF Rx Instructions: space doses >= 8 hrs apart and at least 5 min after hair removal; avoid water for 4hr after any dose gabapentin 300 mg capsule 300 mg PO BEDTIME 30 Days Qty: 30 0RF clonazepam 1 mg tablet 1 mg PO BEDTIME PRN (Reason: anxiety) 30 Days Qty: 30 0RF diclofenac sodium [Arthritis Pain (diclofenac)] 1 % gel 4 g topical QID Qty: 180 0RF Rx Instructions: Apply 1-3 grams (pumps) to the affected area 3-4 times daily. hydrocortisone [Anti-Itch (HC)] 1 % cream 1 appl topical BID PRN (Reason: skin irritation) 30 Days Qty: 28.4 0RF tramadol 50 mg tablet 50 mg PO BID PRN (Reason: pain) 30 Days Qty: 60 0RF cholecalciferol (vitamin D3) 50 mcg (2,000 unit) capsule 50 mcg PO DAILY tizanidine 2 mg tablet 2 mg PO Q8H PRN (Reason: muscle spasticity) 30 Days Qty: 90 0RF lidocaine 5 % adhesive patch,medicated 2 patch topical DAILY 30 Days Qty: 30 3RF Print Language: Jamaican
[2022-07-23 14:08] LABS: MANUAL DIFF FLAG NO
[2022-07-23 14:13] LABS: Basophils Absolute Auto 0.1 X10*3/uL (0.0-0.2); Basophils Percent Auto 1.1 % (0-2); Eosinophils Absolute Auto 0.5 X10*3/uL (0.0-0.4); Eosinophils Percent Auto 5.7 % (0-4); Hematocrit 40.2 % (37.0-47.0); Hemoglobin 12.5 g/dl (12.0-16.0); Imm Gran Abs Auto 0.02 X10*3/uL (0.00-0.03); Imm Gran Pct Auto 0.3 % (0.0-0.4); Lymphocytes Absolute Auto 2.3 X10*3/uL (1.2-4.9); Lymphocytes Percent Auto 28.8 % (20-40); Mean Corpuscular HGB Conc 31.1 g/dl (31.0-35.0); Mean Corpuscular Hemoglobin 27.8 pg (27.0-33.0); Mean Corpuscular Volume 89.3 fL (80.0-98.0); Mean Platelet Volume 9.1 fL (9.4-12.3); Monocytes Absolute Auto 0.8 X10*3/uL (0.1-1.2); Monocytes Percent Auto 9.7 % (2-11); Neutrophils Absolute Auto 4.3 x10*3/uL (2.0-8.3); Neutrophils Percent Auto 54.4 % (45-73); Platelet Count 405 X10*3/uL (160-400); Red Cell Distribution Width 12.6 % (11.0-16.0); White Blood Count 7.8 X10*3/uL (4.8-10.8)
[2022-07-23 14:16] LABS: Appearance Urine Clear; Color Urine Yellow; Glucose Urine UA Negative (Negative); Leukocyte Esterase Urine Negative (Negative); Nitrite Urine Negative (Negative); PH 5.5 (5.0-9.0); Urine Blood Negative (Negative); Urine Ketones Negative (Negative); Urine Protein Negative (Neg-Trace)
[2022-07-23 14:23] LABS: Alanine Aminotransferase 11 U/L (0-31); Albumin Level 4.2 g/dL (3.5-5.0); Alkaline Phosphatase 126 U/L (39-117); Anion Gap 14 (12-20); Aspartate Amino Transferase 20 U/L (5-31); Bilirubin Direct 0.1 mg/dL (0.0-0.5); Bilirubin Total 0.4 mg/dL (0.0-1.0); Blood Urea Nitrogen 6 mg/dL (9-16); Calcium 9.5 mg/dL (8.4-10.2); Carbon Dioxide 27 mmol/L (22-29); Chloride 104 mmol/L (96-108); Creatinine Clr Calc Pharmacy 59.3; Estimated Glomerular Filt Rate > 60; Glucose Random 87 mg/dL (60-115); Lipase 19 U/L (8-78); Potassium 4.4 mmol/L (3.3-5.1); Sodium 141 mmol/L (135-145); Total Protein 7.1 g/dL (6.5-8.0)
[2022-07-23 16:12] VITALS: BP 140/82; PULSE 76; RESP 14; O2SAT 97
--- NOTE | 2022-07-23 17:16 | ECG_ITS ---
Test Reason : EPIGASTRIC PAIN Blood Pressure : / mmHG Vent. Rate : 082 BPM Atrial Rate : 082 BPM P-R Int : 136 ms QRS Dur : 074 ms QT Int : 378 ms P-R-T Axes : 048 043 037 degrees QTc Int : 441 ms Normal sinus rhythm Normal ECG No previous ECGs available Referred By: Love Rollins Electronically Signed By:Salbador Regan
[2022-07-23 17:20] VITALS: RESP 12
[2022-07-23] MEDS: Morphine Sulfate 4 MG/ML CARTRIDGE IVPUSH (17:20)
[2022-07-23 18:25] VITALS: BP 121/70; PULSE 68; RESP 18; O2SAT 98
[2022-07-23] MEDS: traMADoL HCL 50 MG TABLET PO (18:47)
== END 2022-07-23 19:33 | disposition home or self-care (01) ==
PROVIDERS: Physician Assistant Medical; Emergency Provider Student in an Organized Health Care Education/Training Program; PCP Internal Medicine
DX: M54.50 Low back pain, unspecified (principal); R10.13 Epigastric pain; R10.11 Right upper quadrant pain; R10.30 Lower abdominal pain, unspecified; Z87.891 Personal history of nicotine dependence; Z79.899 Other long term (current) drug therapy
CPT/HCPCS: 36415; 76705; 80048; 80076; 81003; 83690; 85025; 93005; 96374; 99284; 99285; J2270

== ENCOUNTER → 2022-07-27 12:53 | Outpatient (BNVA) | payer OTHER, SELFPAY | PROVIDERS: PCP Internal Medicine; Visit Provider Nurse Practitioner | DX: K74.60 Unspecified cirrhosis of liver (principal); M54.6 Pain in thoracic spine; Z98.890 Other specified postprocedural states | CPT/HCPCS: 99202 ==

== ENCOUNTER 2022-08-02 12:35 | Outpatient (REF) | payer OTHER, SELFPAY ==
--- NOTE | ~2022-08-02 | XR_ITS ---
EXAMINATION: XR THORACOLUMBAR SPINE CLINICAL INFORMATION: Thoracic pain. COMPARISON: None available. TECHNIQUE: Three-view thoracic spine. FINDINGS: No acute fracture or subluxation is identified. There is bony bridging seen about the anterior longitudinal ligament and right lateral aspect of T4 through T11 with left lateral bridging T9 through T11. Pedicles intact. No destructive bony lesions identified. Disc spaces are generally maintained. XR/XR thoracic spine 2V IMPRESSION: No acute fracture or subluxation of the thoracic spine identified. Multilevel bony bridging consistent with DISH.
[2022-08-02 15:02] LABS: Ferritin 8 ng/mL (10-250)
[2022-08-02 15:31] LABS: Gamma Glutamyl Transpeptidase 40 U/L (7-33)
[2022-08-03 12:07] LABS: Alpha Fetoprotein 2.5 ng/mL
[2022-08-04 10:59] LABS: Mitochondrial Antibodies NEGATIVE (NEGATIVE)
[2022-08-06 05:48] LABS: Smooth Muscle Antibody <20 U (<20)
== END 2022-08-02 12:36 | disposition home or self-care (01) ==
LOC: HO.LAB 12:35
PROVIDERS: PCP Internal Medicine; Visit Provider Nurse Practitioner
DX: K74.60 Unspecified cirrhosis of liver (principal); M79.604 Pain in right leg; M79.605 Pain in left leg; M46.1 Sacroiliitis, not elsewhere classified; M51.36 Other intervertebral disc degeneration, lumbar region; M47.816 Spondylosis without myelopathy or radiculopathy, lumbar region
CPT/HCPCS: 36415; 72070; 82105; 82728; 82977; 86015; 86255; 86256; 99212

== ENCOUNTER 2022-08-24 07:53 | Outpatient (REF) | payer OTHER, SELFPAY ==
--- NOTE | ~2022-08-24 | MR_ITS ---
EXAMINATION: MR ABDOMEN WITHOUT AND WITH CONTRAST CLINICAL INFORMATION: Cirrhosis. COMPARISON: Abdominal ultrasound 07/23/2022. TECHNIQUE: MR abdomen was performed without and with use of 6 mL intravenous Gadavist gadolinium contrast. Postcontrast images are performed in multiphase dynamic sequences. Imaging was performed in 3 planes. FINDINGS: Evaluation is limited by motion. LUNG BASES: The visualized lung bases are unremarkable. LIVER, GALLBLADDER, AND BILIARY TREE: There is some degree of signal loss in the out of phase dual-echo images suggesting the presence of hepatic steatosis. There is diffuse signal heterogeneity on T2 images as well as postcontrast images, more noticeable on the delayed arterial postcontrast phase with a subtle nodular contour of the liver in keeping with history of cirrhosis. The degree of heterogeneity limits evaluation of small lesions. There is a focal area of ill-defined hyperenhancement in the posterior right hepatic lobe spanning approximately 2.5 cm on image 38 series 100 without a clear correlate on precontrast images and best identified on the delayed arterial postcontrast phase. No additional discrete nodular or mass-like observations are noted. PANCREAS: Limited examination due to motion. The main duct is nondilated. No significant peripancreatic free fluid or fat stranding. SPLEEN: Normal. ADRENAL GLANDS: Normal. KIDNEYS AND URETERS: The kidneys are normal in size, shape, and enhance symmetrically. No hydronephrosis. No perinephric stranding. GASTROINTESTINAL TRACT: No abnormal bowel dilatation to suspect obstruction. No ascites. ABDOMINAL WALL: No significant hernia is appreciated. LYMPH NODES: Limited examination due to motion. No bulky lymphadenopathy. VASCULAR: Normal caliber of the abdominal aorta. The main portal vein is patent. OSSEOUS STRUCTURES: No acute or aggressive-appearing osseous findings. MR/MR abdomen wo/w con IMPRESSION: Limited examination secondary to motion. Focal arterially hyperenhancing observation in the posterior right hepatic lobe, no associated washout or pseudocapsule, no clear correlate on precontrast images. Nonspecific could be perfusional in etiology. Recommend a short-term follow up abdominal MRI with and without IV contrast in 3 months.
== END 2022-08-24 07:54 | disposition home or self-care (01) ==
LOC: HO.MRI 07:53
PROVIDERS: PCP Internal Medicine; Visit Provider Internal Medicine
DX: K74.60 Unspecified cirrhosis of liver (principal); K76.89 Other specified diseases of liver
CPT/HCPCS: 74183; A9585

== ENCOUNTER 2022-08-31 14:08 | Outpatient (AMB) | payer OTHER, SELFPAY ==
--- NOTE | 2022-08-31 14:17 | MHC.OFFVIS ---
Intake Vital Signs 08/31/22 14:21 Height 4 ft 7 in Weight 147 lb 11.355 oz BMI 34.3 BP 108/70 Blood Pressure Location Lt brachial Position Sitting Pulse 85 Intake Visit Reasons: 5 week follow up Intake Note: Laura presents in the office as a 5 week follow up. CC: No concerns today. Swimming Pool Serviceperson Required: Yes Swimming Pool Serviceperson Name: Daughter Allergies naproxen Allergy (Intermediate, Verified 09/28/22 13:21) abdominal pain ibuprofen [From Motrin] Adverse Reaction (Mild, Verified 09/28/22 13:21) stomach pain HPI 5 week follow up HPI Details Assessment & Plan (1) Cirrhosis: ?Code(s): K74.60 - Unspecified cirrhosis of liver ?Plan: [place] [facility]Kacie LIve MRI ordered by PCP.? She tells me that she presented to the ER for back pain and this was discovered via CT. She is concerned that these low density lesions are causing her pain and do I have hepatitis? I reassure her that she had a hepatitis B infection but recovered and no longer carries active viral particles. She admits she has a lot of back problems. Also has chronic leg pain with some paresthesias and RLS and is seen by [facility] I have had may injections that are not working and the steroids just make me fat. The MRI is scheduled for 08/22. She has a stabbing pain that starts in her back and radiates to the right flank. I feel like it is in my back. I will get a thoracic xr - MRI of lumbar spine shows a lo of OA. Start senna and see if CIC is the pain. No FHX liver problems. No ETOH. ROV 4 weeks. 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 (2) H/O colonoscopy: ?Code(s): Z98.890 - Other specified postprocedural states (3) Thoracic back pain: ?Code(s): M54.6 - Pain in thoracic spine ? ? ? Orders: Orders Alpha Fetoprotein 08/02/22 K74.60 - Unspecifi ed cirrhosis of li dianne ? Ferritin 08/02/22 K74.60 - Unspecifi ed cirrhosis of li dianne ? Gamma Glutamyl Tra nspeptidase 08/02/22 K74.60 - Unspecifi ed cirrhosis of li dianne ? Mitochondrial Anti body 08/02/22 K74.60 - Unspecifi ed cirrhosis of li dianne ? Smooth Muscle Anti body 08/02/22 K74.60 - Unspecifi ed cirrhosis of li dianne ? MR abdomen wo/w co n 07/05/22 K74.60 - Unspecifi ed cirrhosis of li dianne, K76.89 - Othe r specified diseas es of liver ? XR thoracic spine 2V 08/02/22 M54.6 - Pain in th oracic spine ? Medications: New sennosides (senna) 17.2 mg (2 x 8.6 m g) PO BEDTIME 60 c aps 1RF constipati on 30 days ? ? LABS: Laboratory Tests 08/02/22 08/02/22 08/02/22 12:59 12:59 12:59 Ferritin 8 L GGT 40 H Alpha Fetoprotein 2.5 Anti-Mitochondrial Ab NEGATIVE Anti-Smooth Muscle Ab <20 X-RAY OF THORACIC SPINE 08/12/22 FINDINGS: No acute fracture or subluxation is identified. There is bony bridging seen about the anterior longitudinal ligament and right lateral aspect of T4 through T11 with left lateral bridging T9 through T11. Pedicles intact. No destructive bony lesions identified. Disc spaces are generally maintained. XR/XR thoracic spine 2V IMPRESSION: No acute fracture or subluxation of the thoracic spine identified. Multilevel bony bridging consistent with DISH.? MRI OF THE ABDOMEN 08/24/22 .FINDINGS: Evaluation is limited by motion. LUNG BASES: The visualized lung bases are unremarkable. LIVER, GALLBLADDER, AND BILIARY TREE: There is some degree of signal loss in the out of phase dual-echo images suggesting the presence of hepatic steatosis. There is diffuse signal heterogeneity on T2 images as well as postcontrast images, more noticeable on the delayed arterial postcontrast phase with a subtle nodular contour of the liver in keeping with history of cirrhosis. The degree of heterogeneity limits evaluation of small lesions. There is a focal area of ill-defined hyperenhancement in the posterior right hepatic lobe spanning approximately 2.5 cm on image 38 series 100 without a clear correlate on precontrast images and best identified on the delayed arterial postcontrast phase. No additional discrete nodular or mass-like observations are noted. PANCREAS: Limited examination due to motion. The main duct is nondilated. No significant peripancreatic free fluid or fat stranding. SPLEEN: Normal. ADRENAL GLANDS: Normal. KIDNEYS AND URETERS: The kidneys are normal in size, shape, and enhance symmetrically. No hydronephrosis. No perinephric stranding. GASTROINTESTINAL TRACT: No abnormal bowel dilatation to suspect obstruction. No ascites. ABDOMINAL WALL: No significant hernia is appreciated. LYMPH NODES: Limited examination due to motion. No bulky lymphadenopathy. VASCULAR: Normal caliber of the abdominal aorta. The main portal vein is patent. OSSEOUS STRUCTURES: No acute or aggressive-appearing osseous findings. MR/MR abdomen wo/w con IMPRESSION: Limited examination secondary to motion. Focal arterially hyperenhancing observation in the posterior right hepatic lobe, no associated washout or pseudocapsule, no clear correlate on precontrast images. Nonspecific could be perfusional in etiology. Recommend a short-term follow up abdominal MRI with and without IV contrast in 3 months. TODAY'S VISIT [place] #Dtr translates per pt request We review all the studies/labs and we will repeat the MRI in 6 mos as the pt really did not like the MRI machine - labs are very reassuring for no cancerous risks cynthia with the normal AFP. She received the senna and she feels it is only helping a little bit. We will progress to bisacodyl 1-2 qhs. ROV 6 weeks. .. [facility] Medical History (Updated 09/28/22 @ 20:15 by Bear Rodriguez MD) Anemia Back pain Chronic pain syndrome Depression with anxiety Emphysema of lung Hypovitaminosis D Obese Osteopenia Postmenopausal Temporomandibular joint (TMJ) pain Surgical History S/P FARRAH-BSO (total abdominal hysterectomy and bilateral salpingo-oophorectomy) Family History Father No problems noted. Mother No problems noted. Sister Colon cancer Social History Housing: Apartment Alcohol intake: former Patient Tobacco Use Status: Former Tobacco user Quit Date: 7 YRS AGO Tobacco use type: Cigarette e-Cigarette/Vaping Use: Never Used Second Hand Smoke Exposure: No service: No Current occupational status: unemployed Cognitive needs: Yes Hearing needs: No Vision needs: No Review of Systems Const Denies fatigue, Denies fever(s), Denies night sweats, Denies poor appetite and Denies weight loss ENT Reports Normal hearing present, Denies dental pain, Denies dysphagia, Denies hearing loss, Denies mouth pain, Denies odynophagia, Denies throat swelling, Denies tongue swelling and Reports other (Dentition adequate) Card Reports no additional complaints Resp Reports no additional complaints GI Denies abdominal pain, Denies melena, Denies bloating, Denies hematochezia, Reports constipation, Denies GI cramping, Denies dysphagia, Denies excessive flatus, Denies early satiety, Denies heartburn, Denies diarrhea, Denies nausea, Denies odynophagia, Denies vomiting and Denies hematemesis Skin/Breast Denies pruritus, Denies lesions, Denies rash and Denies jaundice Neuro Reports Normal hearing present and Denies Abnormal speech present Endo Denies fatigue Aller/Immun Denies throat swelling and Denies tongue swelling Physical Exam Vital Signs: Last Vital Signs Pulse 85 08/31/22 14:21 BP 108/70 08/31/22 14:21 BMI result Body Mass Index 34.3 Const General: cooperative, no acute distress, well developed and well groomed Nutritional Appearance: well nourished and obese Orientation/consciousness: oriented to person, oriented to place and oriented to time Limitations: No language barrier HEENT Head: Yes normocephalic and Yes atraumatic Eyes General: appearance normal, both eyes and all related structures Pupils: Equal, round and reactive pupils present Neck Neck: Yes normal visual inspection and Yes no lymphadenopathy Thyroid: Thyroid normal Resp Effort & Inspection: normal respiratory effort and able to speak in complete sentences Auscultation: clear to auscultation bilaterally Cardio Rate: regular rate Rhythm: regular rhythm Heart sounds: Normal, physiologic split S2 sound present Peripheral pulses: radial pulses present and posterior tibial pulses present GI Inspection: No distended, No Abdominal panniculus present and Yes obesity Palpation (GI): Soft to palpation, nontender, no guarding, not rigid and No hepatosplenomegaly present Percussion: Yes normal to percussion Auscultation: normal bowel sounds Rectal Exam - Female: deferred Skin General skin exam: no rashes or lesions noted, turgor normal, skin not dry, no jaundice, No spider nevi and no striae Rashes: no rashes Nails: normal Neuro General: oriented to person, oriented to place and oriented to time Cranial nerves: Yes Equal, round and reactive pupils present and Yes Normal hearing present Speech: No Abnormal speech present Extrem General: Yes normal to inspection, No clubbing, No cyanosis and No edema Psych Appearance: grossly normal and well kempt Mental Status: mental status grossly normal Speech and movement: Normal speech and movement present Affect: normal affect Attitude: cooperative Thought process: Normal thought process present and not confabulating Thought content: Normal thought content present Insight: Limited insight present (Psych) Judgement: Limited judgement present (Psych) Results Reviewed Results Reviewed: Laboratory Tests 08/02/22 08/02/22 08/02/22 12:59 12:59 12:59 Ferritin 8 L GGT 40 H Alpha Fetoprotein 2.5 Anti-Mitochondrial Ab NEGATIVE Anti-Smooth Muscle Ab <20 X-RAY OF THORACIC SPINE 08/12/22 FINDINGS: No acute fracture or subluxation is identified. There is bony bridging seen about the anterior longitudinal ligament and right lateral aspect of T4 through T11 with left lateral bridging T9 through T11. Pedicles intact. No destructive bony lesions identified. Disc spaces are generally maintained. XR/XR thoracic spine 2V IMPRESSION: No acute fracture or subluxation of the thoracic spine identified. Multilevel bony bridging consistent with DISH.? MRI OF THE ABDOMEN 08/24/22 .FINDINGS: Evaluation is limited by motion. LUNG BASES: The visualized lung bases are unremarkable. LIVER, GALLBLADDER, AND BILIARY TREE: There is some degree of signal loss in the out of phase dual-echo images suggesting the presence of hepatic steatosis. There is diffuse signal heterogeneity on T2 images as well as postcontrast images, more noticeable on the delayed arterial postcontrast phase with a subtle nodular contour of the liver in keeping with history of cirrhosis. The degree of heterogeneity limits evaluation of small lesions. There is a focal area of ill-defined hyperenhancement in the posterior right hepatic lobe spanning approximately 2.5 cm on image 38 series 100 without a clear correlate on precontrast images and best identified on the delayed arterial postcontrast phase. No additional discrete nodular or mass-like observations are noted. PANCREAS: Limited examination due to motion. The main duct is nondilated. No significant peripancreatic free fluid or fat stranding. SPLEEN: Normal. ADRENAL GLANDS: Normal. KIDNEYS AND URETERS: The kidneys are normal in size, shape, and enhance symmetrically. No hydronephrosis. No perinephric stranding. GASTROINTESTINAL TRACT: No abnormal bowel dilatation to suspect obstruction. No ascites. ABDOMINAL WALL: No significant hernia is appreciated. LYMPH NODES: Limited examination due to motion. No bulky lymphadenopathy. VASCULAR: Normal caliber of the abdominal aorta. The main portal vein is patent. OSSEOUS STRUCTURES: No acute or aggressive-appearing osseous findings. MR/MR abdomen wo/w con IMPRESSION: Limited examination secondary to motion. Focal arterially hyperenhancing observation in the posterior right hepatic lobe, no associated washout or pseudocapsule, no clear correlate on precontrast images. Nonspecific could be perfusional in etiology. Recommend a short-term follow up abdominal MRI with and without IV contrast in 3 months. Assessment & Plan Assessment & Plan (1) Constipation: Code(s): K59.00 - Constipation, unspecified Plan: [place] #Dtr translates per pt request We review all the studies/labs and we will repeat the MRI in 6 mos as the pt really did not like the MRI machine - labs are very reassuring for no cancerous risks cynthia with the normal AFP. She received the senna and she feels it is only helping a little bit. We will progress to bisacodyl 1-2 qhs. ROV 6 weeks. (2) Cirrhosis: Code(s): K74.60 - Unspecified cirrhosis of liver Medications: New bisacodyl (Dulcolax (bisacodyl)) 10 mg (2 x 5 mg) PO BEDTIME 60 tabs 6RF 30 days K59.00 - Constipation, unspecified Coding Level of Care Code Est Pt Level 3 (91671) Diagnoses Constipation K59.00 Cirrhosis K74.60
[2022-08-31 14:21] VITALS: BP 108/70; PULSE 85; BMI 34.3
== END 2022-08-31 14:54 | disposition home or self-care (01) ==
PROVIDERS: PCP Internal Medicine; Visit Provider Nurse Practitioner
DX: K59.00 Constipation, unspecified (principal); K74.60 Unspecified cirrhosis of liver
CPT/HCPCS: 99213

== ENCOUNTER → 2022-08-31 14:08 | Outpatient (BNVA) | payer OTHER, SELFPAY | PROVIDERS: PCP Internal Medicine; Visit Provider Nurse Practitioner | DX: K74.60 Unspecified cirrhosis of liver (principal); K59.00 Constipation, unspecified; M54.6 Pain in thoracic spine; Z98.890 Other specified postprocedural states | CPT/HCPCS: 99212 ==

== ENCOUNTER 2022-09-28 13:11 | Outpatient (AMB) | payer OTHER, SELFPAY ==
[2022-09-28 13:18] VITALS: BP 120/60; PULSE 86; O2SAT 98; BMI 28.8
--- NOTE | 2022-09-28 13:18 | A.OFFVIS_ITS ---
Intake Vital Signs 09/28/22 13:18 Height 5 ft Weight 147 lb 11.355 oz BMI 28.8 BP 120/60 Blood Pressure Location Lt brachial Position Sitting Pulse 86 Pulse Source Pulse Oximeter Pulse Oximetry (%) 98 Oxygen Delivery Method Room Air Intake Visit Reasons: Centrilobular emphysema Fabrication Lead Required: No Allergies naproxen Allergy (Intermediate, Verified 09/28/22 13:21) abdominal pain ibuprofen [From Motrin] Adverse Reaction (Mild, Verified 09/28/22 13:21) stomach pain HPI HPI Comments History of Present Illness Details The patient is here for pulmonary evaluation. The patient is a 71-year-old woman who apparently was in usual state [facility] until back in beginning of the year she was evaluated at an outside hospital. There was a question of pulmonary emboli she ended up undergoing for CTA. The CTA demonstrated apparently some emphysema. Although, I could not find the actual report. Clinically, however the patient has been doing well denies any significant shortness of breath denies any significant coughing. She was a smoker but she quit many years ago. On further questioning she states that her mother also of emphysema although she was not a nonsmoker. She also had another sibling that develop significant emphysema as well. Therefore we did do a full 1 antitrypsin deficiency. Testing today. Should patient will also need PFTs. Clinically patient is doing well she that she does not need any inhaler therapy at this time. Her major complaint is really TMJ. She is having some discomfort on the right TMJ area. Her still open up her mouth to clench her teeth and touch the area. I did print her out some exercises for that. If the patient is no better she should follow-up with her primary care doctor regarding that issue. [facility] Medical History (Updated 09/28/22 @ 20:15 by Bear Rodriguez MD) Anemia Back pain Chronic pain syndrome Depression with anxiety Emphysema of lung Hypovitaminosis D Obese Osteopenia Postmenopausal Temporomandibular joint (TMJ) pain Surgical History S/P FARRAH-BSO (total abdominal hysterectomy and bilateral salpingo-oophorectomy) Family History Father No problems noted. Mother No problems noted. Sister Colon cancer Social History Housing: Apartment Alcohol intake: former Patient Tobacco Use Status: Former Tobacco user Quit Date: 7 YRS AGO Tobacco use type: Cigarette e-Cigarette/Vaping Use: Never Used Second Hand Smoke Exposure: No service: No Current occupational status: unemployed Cognitive needs: Yes Hearing needs: No Vision needs: No Review of Systems Const Denies fatigue and Denies fever(s) Eyes Denies change in vision ENT Reports mouth pain Card Denies chest pain and Denies dyspnea on exertion Resp Denies cough, Denies dyspnea on exertion and Denies wheezing GI Denies abdominal pain Musc Reports no additional complaints Skin/Breast Denies rash Neuro Reports no additional complaints Endo Denies fatigue Mateusz/Lymph Denies lymphadenopathy Aller/Immun Denies wheezing Physical Exam Vital Signs: Last Vital Signs Pulse 86 09/28/22 13:18 BP 120/60 09/28/22 13:18 Pulse Ox 98 09/28/22 13:18 Oxygen Delivery Method Room Air 09/28/22 13:18 BMI result Body Mass Index 28.8 Const General: cooperative HEENT Head: Yes atraumatic Neck Neck: Yes supple Chest Chest palpation & inspection: normal inspection of the chest Resp Effort & Inspection: normal respiratory effort Auscultation: clear to auscultation bilaterally Cardio Rate: regular rate Rhythm: regular rhythm Heart sounds: S1 normal heart sound present and S2 normal heart sound present GI Palpation (GI): Soft to palpation Skin General skin exam: no rashes or lesions noted Extrem General: Yes no clubbing, cyanosis or edema Assessment & Plan Assessment & Plan (1) Emphysema of lung: Code(s): J43.9 - Emphysema, unspecified (2) Centrilobular emphysema: Code(s): J43.2 - Centrilobular emphysema (3) Cirrhosis: Code(s): K74.60 - Unspecified cirrhosis of liver (4) Temporomandibular joint (TMJ) pain: Code(s): M26.629 - Arthralgia of temporomandibular joint, unspecified side Plan Alpha 1 DNA testing PFTs consider additional chest imaging if PFTs are abnormal TMJ exercises provided F/U 2-3 months Coding Level of Care Code New Pt Level 4 (16521) Diagnoses Emphysema of lung J43.9 Centrilobular emphysema J43.2 Cirrhosis K74.60 Temporomandibular joint (TMJ) pain M26.629 Time Spent (min) 37
== END 2022-09-28 13:45 | disposition home or self-care (01) ==
PROVIDERS: PCP Internal Medicine; Visit Provider Hospitalist
DX: J43.9 Emphysema, unspecified (principal); J43.2 Centrilobular emphysema; K74.60 Unspecified cirrhosis of liver; M26.629 Arthralgia of temporomandibular joint, unspecified side
CPT/HCPCS: 99204

== ENCOUNTER → 2022-09-28 13:11 | Outpatient (BNVA) | payer OTHER, SELFPAY | PROVIDERS: PCP Internal Medicine; Visit Provider Hospitalist | DX: J43.2 Centrilobular emphysema (principal); K74.60 Unspecified cirrhosis of liver; M26.629 Arthralgia of temporomandibular joint, unspecified side | CPT/HCPCS: 99202 ==

== ENCOUNTER 2022-10-06 13:19 | Outpatient (REF) | payer OTHER, SELFPAY ==
--- NOTE | ~2022-10-06 | XR_ITS ---
EXAMINATION: XR PARANASAL SINUSES AND MANDIBLE CLINICAL INFORMATION: Disorders of nose and nasal sinuses, maxillary pain COMPARISON: None available. TECHNIQUE: Frontal and bilateral oblique views were acquired of the mandible. Grayson, Moore and submentovertex views were acquired of the paranasal sinuses. FINDINGS: Examination of the mandible shows a dental implant. There are also 4 dental implants in the maxilla. There is no evidence of ostial lysis or fracture. The temporal mid mandibular joints appear unremarkable on these plain radiographs. The paranasal sinuses are well aerated and clear. No significant opacification or mucoperiosteal thickening is detected in the paranasal sinuses. There are no detected bone lesions. XR/XR sinus min 3V IMPRESSION: 1. Unremarkable plain radiographs of the mandible and paranasal sinuses.
--- NOTE | ~2022-10-06 | XR_ITS ---
EXAMINATION: XR PARANASAL SINUSES AND MANDIBLE CLINICAL INFORMATION: Disorders of nose and nasal sinuses, maxillary pain COMPARISON: None available. TECHNIQUE: Frontal and bilateral oblique views were acquired of the mandible. Grayson, Moore and submentovertex views were acquired of the paranasal sinuses. FINDINGS: Examination of the mandible shows a dental implant. There are also 4 dental implants in the maxilla. There is no evidence of ostial lysis or fracture. The temporal mid mandibular joints appear unremarkable on these plain radiographs. The paranasal sinuses are well aerated and clear. No significant opacification or mucoperiosteal thickening is detected in the paranasal sinuses. There are no detected bone lesions. XR/XR mandible <4V IMPRESSION: 1. Unremarkable plain radiographs of the mandible and paranasal sinuses.
== END 2022-10-06 13:20 | disposition home or self-care (01) ==
LOC: HO.XRAY 13:19
PROVIDERS: PCP Internal Medicine; Visit Provider Internal Medicine
DX: M26.629 Arthralgia of temporomandibular joint, unspecified side (principal); J34.89 Other specified disorders of nose and nasal sinuses
CPT/HCPCS: 70100; 70220

== ENCOUNTER 2022-10-22 13:00 | Emergency (ER) | payer OTHER, SELFPAY ==
[2022-10-22 13:52] VITALS: BP 134/93; PULSE 97; RESP 18; TEMP 36.6; O2SAT 97; BMI 28.9
--- NOTE | 2022-10-22 13:54 | ECG_ITS ---
Test Reason : CHEST PAIN Blood Pressure : / mmHG Vent. Rate : 084 BPM Atrial Rate : 084 BPM P-R Int : 138 ms QRS Dur : 070 ms QT Int : 346 ms P-R-T Axes : 036 054 047 degrees QTc Int : 408 ms Normal sinus rhythm Normal ECG When compared with ECG of 23-JUL-2022 17:20, No significant change was found Referred By: Kevin Covington Electronically Signed By:KASANDRA HUI
--- NOTE | 2022-10-22 13:54 | ED_ITS ---
HPI - General Adult General Chief complaint: General Medical Stated complaint: Body Aches Time Seen by Provider: 10/22/22 21:41 Source: patient Mode of arrival: ambulatory Limitations: no limitations History of Present Illness HPI narrative: Patient with history of chronic pain syndrome followed by pain clinic comes here with multiple complex complaints with chills sore throat headache body aches chest pain for last 2 days patient was seen by the provider upfront and labs were done which showed normal CBC and chemistry COVID test was negative, on tramadol and gabapentin Related Data Previous Rx's Medication Instructions Recorded cane #1 ea 07/18/21 eflornithine 13.9 % topical cream 1 appl topical BID 30 days #45 05/17/22 (Vaniqa) grams hydrocortisone 1 % topical cream 1 appl topical BID PRN skin 07/16/22 (Anti-Itch (hydrocortisone)) irritation 30 days #28.4 grams lidocaine 5 % topical patch 2 patch topical DAILY pain 30 days 08/02/22 #30 ea bisacodyl 5 mg tablet,delayed 10 mg (2 x 5 mg) PO BEDTIME 30 08/31/22 release (Dulcolax (bisacodyl)) days #60 tabs amoxicillin 500 mg tablet 500 mg PO BID 7 days #14 tabs 09/16/22 clonazepam 1 mg tablet 1 mg PO BEDTIME PRN anxiety 30 10/19/22 days #30 tabs diclofenac sodium 1 % topical gel 4 g topical QID pain #180 grams 10/19/22 (Arthritis Pain (diclofenac)) gabapentin 300 mg capsule 300 mg PO BEDTIME for pain 30 days 10/19/22 #30 caps calcium carbonate 250 mg-vitamin 1 tab PO BID 90 days #180 tabs 10/20/22 D3 3.125 mcg (125 unit) tablet (Oyster Shell Calcium-Vitamin D3) tramadol 50 mg tablet 50 mg PO BID PRN pain 30 days #60 10/20/22 tabs morphine 15 mg immediate release 15 mg PO Q8H PRN pain #15 tabs 10/22/22 tablet Allergies Allergy/AdvReac Type Severity Reaction Status Date / Time naproxen Allergy Intermediate abdominal Verified 10/22/22 13:56 pain ibuprofen [From Motrin] AdvReac Mild stomach Verified 10/22/22 13:56 pain Review of Systems 2 Review of Systems: Yes all other systems are reviewed and are negative PMF Past Medical History Medical History (Updated 10/22/22 @ 22:13 by Humphrey Tierney MD) Temporomandibular joint (TMJ) pain Emphysema of lung Anemia Osteopenia Postmenopausal Back pain Obese Chronic pain syndrome Hypovitaminosis D Depression with anxiety Surgical History S/P FARRAH-BSO (total abdominal hysterectomy and bilateral salpingo-oophorectomy) Family History Family History Father No problems noted. Mother No problems noted. Sister Colon cancer Social History Social History Housing: Apartment Alcohol intake: never Patient Tobacco Use Status: Former Tobacco user Quit Date: 7 YRS AGO Tobacco use type: Cigarette Smoked in Last 30 Days: No e-Cigarette/Vaping Use: Never Used Second Hand Smoke Exposure: No Use of substances other than those prescribed or required for medical reasons: No Advance Directives: Yes Advance Directives on File: Yes Advance Directives Date on File: 01/12/22 service: No Current occupational status: unemployed Cognitive needs: Yes Hearing needs: No Vision needs: No Physical Exam ED Vital Signs: Vital Signs - 24 hr 10/22/22 13:52 10/22/22 19:21 10/22/22 22:31 Temperature 97.9 F 97.8 F Pulse Rate 97 102 H 82 Respiratory Rate 18 16 16 Blood Pressure 134/93 H 140/75 H 152/77 H Pulse Oximetry 97 97 98 Oxygen Delivery Method Room Air Room Air Room Air BMI result Body Mass Index 28.9 Appearance: Alert. Oriented X3. No acute distress. Eyes: PERRLA, No Nystagmus ENT: Pharynx normal. Oral Mucosa moist Neck: Normal inspection. Neck supple. CVS: Normal heart rate and rhythm. Pulses normal. Respiratory: No respiratory distress. Equal air entry bilateral, no wheezing/rales/rhonchi Abdomen: Soft and nontender. Bowel sounds are present, no mass palpable, no CVA tenderness Skin: Skin warm and dry. Normal skin color. Normal skin turgor. Extremities: No lower extremity edema. No calf tenderness SLR negative bilaterally patient able to ambulate deep tender reflexes 2+ no sacral anesthesia Neuro: Oriented X 3. No motor deficit. No sensory deficit.No cerebellar signs , cranial nerves II-XII intact Course Course Course Narrative: RME- 71 year old female presents for evaluation of back pain, chest pain, and body aches. Plan for COVID swab, EKG, labs. Medications Administered Discontinued Medications Generic Name Dose Route Start Last Admin Trade Name Jose Aq PRN Reason Stop Dose Admin Morphine Sulfate 15 mg 10/22/22 22:08 10/22/22 22:31 Morphine Sulfate Immed Release 15 Mg Tablet PO 10/22/22 22:09 15 mg ONCE ONE Administration Medical Decision Making Medical Decision Making [facility] Narrative: Patient with chronic pain lab workup normal discharge patient on morphine tablets advised to continue her previous pain medication provided by PCP and Pain Clinic Lab Data [facility] Lab Attestation statement: I reviewed the patient's lab results. 10/22/22 14:08 10/22/22 14:08 Labs: Lab Results 10/22/22 Range/Units 14:08 WBC 6.9 (4.8-10.8) X10*3/uL RBC 4.57 (4.20-5.50) X10*6/uL Hgb 12.6 (12.0-16.0) g/dl Hct 40.0 (37.0-47.0) % MCV 87.5 (80.0-98.0) fL MCH 27.6 (27.0-33.0) pg MCHC 31.5 (31.0-35.0) g/dl RDW 12.6 (11.0-16.0) % Plt Count 358 (160-400) X10*3/uL MPV 9.0 L (9.4-12.3) fL Immature Gran % (Auto) 0.1 (0.0-0.4) % Neut % (Auto) 65.3 (45-73) % Lymph % (Auto) 21.7 (20-40) % Franklin % (Auto) 8.4 (2-11) % Eos % (Auto) 3.6 (0-4) % Baso % (Auto) 0.9 (0-2) % Lymph # (Auto) 1.5 (1.2-4.9) X10*3/uL Franklin # (Auto) 0.6 (0.1-1.2) X10*3/uL Eos # (Auto) 0.3 (0.0-0.4) X10*3/uL Baso # (Auto) 0.1 (0.0-0.2) X10*3/uL Abs Immat Gran (auto) 0.01 (0.00-0.03) X10*3/uL Absolute Neuts (auto) 4.5 (2.0-8.3) x10*3/uL Absolute Nucleated RBC 0.000 (0.0-0.012) X10*3/uL Nucleated RBC % (auto) 0.0 (0.0-0.2) /100WBC PT 11.6 (11.1-13.3) SEC INR 1.0 (0.9-1.1) APTT 29.2 (26.0-36.4) SEC Sodium 139 (135-145) mmol/L Potassium 4.0 (3.3-5.1) mmol/L Chloride 106 (96-108) mmol/L Carbon Dioxide 29 (22-29) mmol/L Anion Gap 8 L (12-20) BUN 7 L (9-16) mg/dL Creatinine 0.67 (0.5-1.4) mg/dL Estim Creat Clear Calc 67.7 Estimated GFR > 60 Random Glucose 94 (60-115) mg/dL Calcium 9.3 (8.4-10.2) mg/dL Total Bilirubin 0.4 (0.0-1.0) mg/dL AST 21 (5-31) U/L ALT 12 (0-31) U/L Alkaline Phosphatase 114 (39-117) U/L Troponin I High Sens < 2.7 (<3.5-17.0) ng/L Total Protein 7.0 (6.5-8.0) g/dL Albumin 4.2 (3.5-5.0) g/dL Lipase 22 (8-78) U/L COVID-19 (FADY) Negative (Negative) COVID-19 Clin Com See Note Discharge Plan Discharge Clinical Impression: Chronic back pain Patient Disposition: Home, Self-Care Instructions: Chronic Back Pain (DC) Additional Instructions: Rest at home Continue to take your pain medications Morphine for increased pain Follow-up with pain clinic Descansar en casa Contin?e tomando holly analg?sicos. Morfina para aumentar el dolor Seguimiento con cl?florida del dolor. Prescriptions: New morphine 15 mg tablet 15 mg PO Q8H PRN (Reason: pain) Qty: 15 0RF Rx Instructions: Partial Fill upon patient request. No Action (DME) cane Device See Rx Instructions .Route Qty: 1 0RF Rx Instructions: As directed Vaniqa 13.9 % cream 1 appl topical BID 30 Days Qty: 45 0RF Rx Instructions: space doses >= 8 hrs apart and at least 5 min after hair removal; avoid water for 4hr after any dose hydrocortisone [Anti-Itch (HC)] 1 % cream 1 appl topical BID PRN (Reason: skin irritation) 30 Days Qty: 28.4 0RF amoxicillin 500 mg tablet 500 mg PO BID 7 Days Qty: 14 0RF clonazepam 1 mg tablet 1 mg PO BEDTIME PRN (Reason: anxiety) 30 Days Qty: 30 0RF diclofenac sodium [Arthritis Pain (diclofenac)] 1 % gel 4 g topical QID Qty: 180 0RF Rx Instructions: Apply 1-3 grams (pumps) to the affected area 3-4 times daily. gabapentin 300 mg capsule 300 mg PO BEDTIME 30 Days Qty: 30 3RF calcium carbonate-vitamin D3 [Oyster Shell Calcium-Vit D3] 250 mg-3.125 mcg (125 unit) tablet 1 tab PO BID 90 Days Qty: 180 1RF tramadol 50 mg tablet 50 mg PO BID PRN (Reason: pain) 30 Days Qty: 60 0RF bisacodyl [Dulcolax (bisacodyl)] 5 mg tablet,delayed release (DR/EC) 10 mg PO BEDTIME 30 Days Qty: 60 6RF lidocaine 5 % adhesive patch,medicated 2 patch topical DAILY 30 Days Qty: 30 3RF Print Language: Khmer
[2022-10-22 14:14] LABS: MANUAL DIFF FLAG NO
[2022-10-22 14:20] LABS: Basophils Absolute Auto 0.1 X10*3/uL (0.0-0.2); Basophils Percent Auto 0.9 % (0-2); Eosinophils Absolute Auto 0.3 X10*3/uL (0.0-0.4); Eosinophils Percent Auto 3.6 % (0-4); Hemoglobin 12.6 g/dl (12.0-16.0); Imm Gran Abs Auto 0.01 X10*3/uL (0.00-0.03); Imm Gran Pct Auto 0.1 % (0.0-0.4); Lymphocytes Absolute Auto 1.5 X10*3/uL (1.2-4.9); Lymphocytes Percent Auto 21.7 % (20-40); Mean Corpuscular HGB Conc 31.5 g/dl (31.0-35.0); Mean Corpuscular Hemoglobin 27.6 pg (27.0-33.0); Mean Corpuscular Volume 87.5 fL (80.0-98.0); Monocytes Absolute Auto 0.6 X10*3/uL (0.1-1.2); Monocytes Percent Auto 8.4 % (2-11); Neutrophils Absolute Auto 4.5 x10*3/uL (2.0-8.3); Neutrophils Percent Auto 65.3 % (45-73); Platelet Count 358 X10*3/uL (160-400); Red Blood Count 4.57 X10*6/uL (4.20-5.50); Red Cell Distribution Width 12.6 % (11.0-16.0); White Blood Count 6.9 X10*3/uL (4.8-10.8)
[2022-10-22 14:23] LABS: Prothrombin Time 11.6 SEC (11.1-13.3)
[2022-10-22 14:26] LABS: Partial Thromboplastin Time 29.2 SEC (26.0-36.4)
[2022-10-22 14:30] LABS: COVID-19 Test Negative (Negative); IDNOW Serial# BCCEAD1C
[2022-10-22 14:35] LABS: Alanine Aminotransferase 12 U/L (0-31); Albumin Level 4.2 g/dL (3.5-5.0); Alkaline Phosphatase 114 U/L (39-117); Anion Gap 8 (12-20); Aspartate Amino Transferase 21 U/L (5-31); Bilirubin Total 0.4 mg/dL (0.0-1.0); Blood Urea Nitrogen 7 mg/dL (9-16); Calcium 9.3 mg/dL (8.4-10.2); Carbon Dioxide 29 mmol/L (22-29); Chloride 106 mmol/L (96-108); Creatinine Clr Calc Pharmacy 67.7; Estimated Glomerular Filt Rate > 60; Glucose Random 94 mg/dL (60-115); Lipase 22 U/L (8-78); Sodium 139 mmol/L (135-145)
[2022-10-22 14:43] LABS: Troponin-I High Sensitivity < 2.7 ng/L (<3.5-17.0)
[2022-10-22 19:21] VITALS: BP 140/75; PULSE 102; RESP 16; O2SAT 97
[2022-10-22 22:31] VITALS: BP 152/77; PULSE 82; RESP 16; TEMP 36.6; O2SAT 98
[2022-10-22] MEDS: Morphine Sulfate Immed Release 15 MG TABLET PO (22:31)
== END 2022-10-22 22:37 | disposition home or self-care (01) ==
PROVIDERS: Physician Assistant; Emergency Provider Internal Medicine; PCP Internal Medicine
DX: M54.9 Dorsalgia, unspecified (principal); G89.4 Chronic pain syndrome; Z20.822 Contact with and (suspected) exposure to COVID-19; R07.9 Chest pain, unspecified; M79.10 Myalgia, unspecified site; J02.9 Acute pharyngitis, unspecified; D64.9 Anemia, unspecified; Z87.891 Personal history of nicotine dependence; Z79.899 Other long term (current) drug therapy
CPT/HCPCS: 36415; 80053; 83690; 84484; 85025; 85610; 85730; 87635; 93005; 99283; 99285

== ENCOUNTER → 2022-10-26 13:10 | Outpatient (BNV) | payer OTHER, SELFPAY | PROVIDERS: PCP Internal Medicine; Visit Provider Hospitalist | DX: J43.9 Emphysema, unspecified (principal) | CPT/HCPCS: 94060; 94727; 94729 ==

== ENCOUNTER 2022-10-26 13:16 | Outpatient (REF) | payer OTHER, SELFPAY ==
--- NOTE | 2022-10-26 | PFT_ITS ---
INDICATION: Emphysema. SPIROMETRY: FEV1 to FVC of 100% with an FEV1 of 1.39 L, which is 72% predicted, FVC of 1.39 L, which is 55% predicted. There was a significant response to bronchodilators noted. To note, the FEF 25-75 decreased down to 36% predicted and improved by 130%. Maximum voluntary ventilation 45% predicted. LUNG VOLUMES: Total lung capacity 65% predicted. DIFFUSION CAPACITY: DLCO of 97% predicted. POST-TEST COMMENTS: This is a difficult study. The patient was uncomfortable throughout the procedure, but had a great effort, did not meet ATS standards. COMPARISONS: None. INTERPRETATION: No obstructive ventilatory defect. Although, the patient did have a significant response to bronchodilators noted and significant small airways disease which could be suggestive of significant asthma. The patient also has a moderate to severe decrease in the maximum voluntary ventilation cannot rule out neuromuscular condition. In addition, the patient does have this could be secondary to neuromuscular condition and/or parenchymal lung diseases. The diffuse capacity is within normal limits, which is reassuring for any intrinsic parenchymal process. Clinical correlation warranted. Bear Rodriguez MD MR/MODL / [id number]
== END 2022-10-26 13:17 | disposition home or self-care (01) ==
LOC: HO.RESP 13:16
PROVIDERS: PCP Internal Medicine; Visit Provider Hospitalist
DX: J43.8 Other emphysema (principal)
CPT/HCPCS: 94010; 94727; 94729

== ENCOUNTER 2022-11-03 10:39 | Outpatient (AMB) | payer OTHER, SELFPAY ==
--- NOTE | 2022-11-03 10:42 | MHC.OFFVIS ---
Intake Vital Signs 11/03/22 10:45 Height 5 ft Weight 150 lb 12.739 oz BMI 29.4 BP 103/65 Blood Pressure Location Rt brachial Position Sitting Pulse 80 Intake Visit Reasons: 6 week follow up Intake Note: Laura presents in the office as a 6 week follow up cirrhosis. CC: Patient reports lower back pain with radiation to abdomen. She was recently seen in the ER on 10/22/22. Denies having any GI issues today. Beam House Inspector Required: Yes Accompanied by: Self / Same As Patient Allergies naproxen Allergy (Intermediate, Verified 10/22/22 13:56) abdominal pain ibuprofen [From Motrin] Adverse Reaction (Mild, Verified 10/22/22 13:56) stomach pain HPI 6 week follow up HPI Details Assessment & Plan (1) Constipation: ?Code(s): K59.00 - Constipation, unspecified ?Plan: Divehi #Dtr translates per pt request We review all the studies/labs and we will repeat the MRI in 6 mos as the pt really did not like the MRI machine - labs are very reassuring for no cancerous risks cynthia with the normal AFP. She received the senna and she feels it is only helping a little bit. We will progress to bisacodyl 1-2 qhs. ROV 6 weeks. (2) Cirrhosis: ?Code(s): K74.60 - Unspecified cirrhosis of liver ? ? ? Medications: New bisacodyl (Dulcola x (bisacodyl)) 10 mg (2 x 5 mg) P O BEDTIME 60 tabs 6RF 30 days K59.00 - Constipat ion, unspecified ? TODAY'S VISIT Divehi #Martine LIve She will need a repeat MRI 6 mos after 08/2022 for indefinite liver lesions. She was having pain in the left abd that radiates to the back, the senna was not moving her bowels well so we progressed her to bisacodyl. She is still having a lot of bloating, and if I take the pills at night, I will go all day. This is with taking 2 pills qhs. I suggest that she try taking just 1 pill. She tried this and had less BM She still has pain in her back that is very strong and is weakening her legs. She was seen in the ER for this since our last visit but she was c/o total body aches. HOwever, she has DISH of the thoracic spine that is the likely source of this. She admits that even when she moves her bowels it does not effect her pain. She was referred to PT but they declined to treat her thinking it would only increase her pain. She may benefit from a referral to Pain mgmt. BUT she says she sees [facility] already. She says the ER doctor told me surgery may help, but given her age and the widespread manifestation of this in the thoracic spine this may be a questionable recommendation. She has not been helped with injections, they just made the pain worse. I think it is quite clear that her pain is from radiating/radicular back pain. She may benefit from a rheumatology referral, but we do not have one here - she says she can get to [facility]. [facility] and give her the phone # ROV 6 weeks to keli richardson for bloating She tells me as a doorknob c/o that her last scope was in 2002 in [place], and she has a family history of CRC in her sister!! She has not had one since then. I will get this ordered. She has COPD and is seen by here and will need to be cleared, no cardiac problems. There are no prior problems with anesthesia or sedation. NO ID problems.. Again her sister has colorectal cancer. Return office visit in 6 weeks to evaluate the change in her medications. [facility] Medical History (Updated 11/03/22 @ 11:33 by ROSALES Lofton) Temporomandibular joint (TMJ) pain Emphysema of lung Anemia Osteopenia Postmenopausal Back pain Obese Chronic pain syndrome Hypovitaminosis D Depression with anxiety Surgical History S/P FARRAH-BSO (total abdominal hysterectomy and bilateral salpingo-oophorectomy) Family History Father No problems noted. Mother No problems noted. Sister Colon cancer Social History Housing: Apartment Alcohol intake: never Patient Tobacco Use Status: Former Tobacco user Quit Date: 7 YRS AGO Tobacco use type: Cigarette e-Cigarette/Vaping Use: Never Used Second Hand Smoke Exposure: No Advance Directives Date on File: 01/12/22 service: No Current occupational status: unemployed Cognitive needs: Yes Hearing needs: No Vision needs: No Review of Systems Const Denies fatigue, Denies fever(s), Denies night sweats, Denies poor appetite and Denies weight loss ENT Reports Normal hearing present, Denies dental pain, Denies dysphagia, Denies hearing loss, Denies mouth pain, Denies odynophagia, Denies throat swelling, Denies tongue swelling and Reports other (Dentition adequate) Card Reports no additional complaints Resp Reports no additional complaints GI Reports abdominal pain, Denies melena, Reports bloating, Denies hematochezia, Reports constipation, Denies GI cramping, Denies dysphagia, Denies excessive flatus, Denies early satiety, Denies heartburn, Denies diarrhea, Denies nausea, Denies odynophagia, Denies vomiting and Denies hematemesis Musc Reports back pain, Reports myalgias, Reports arthralgias, Reports muscle weakness, Reports radiating pain into limb and Reports stiffness Skin/Breast Denies pruritus, Denies lesions, Denies rash and Denies jaundice Neuro Reports Normal hearing present and Denies Abnormal speech present Endo Denies fatigue Aller/Immun Denies throat swelling and Denies tongue swelling Physical Exam Vital Signs: Last Vital Signs Pulse 80 11/03/22 10:45 BP 103/65 11/03/22 10:45 BMI result Body Mass Index 29.4 Const General: cooperative, no acute distress, well developed and well groomed Nutritional Appearance: well nourished and overweight Orientation/consciousness: oriented to person, oriented to place and oriented to time Limitations: language barrier HEENT Head: Yes normocephalic and Yes atraumatic Eyes General: appearance normal, both eyes and all related structures Pupils: Equal, round and reactive pupils present Neck Neck: Yes normal visual inspection and Yes no lymphadenopathy Thyroid: Thyroid normal Resp Effort & Inspection: normal respiratory effort and able to speak in complete sentences Auscultation: clear to auscultation bilaterally Cardio Rate: regular rate Rhythm: regular rhythm Heart sounds: Normal, physiologic split S2 sound present Peripheral pulses: radial pulses present and posterior tibial pulses present GI Inspection: No distended, No Abdominal panniculus present and Yes obesity Palpation (GI): Soft to palpation, nontender, no guarding, not rigid and No hepatosplenomegaly present Percussion: Yes normal to percussion Auscultation: normal bowel sounds Rectal Exam - Female: deferred Back/Spine/Pelvis Thoracic/Lumbar Spine: pain with thoraco-lumbar ROM, paraspinal muscle tenderness, thoraco-lumbar ROM limited, thoraco-lumbar spasm, thoracic spinal tenderness, lumbar spinal tenderness and straight leg raise positive Skin General skin exam: no rashes or lesions noted, turgor normal, skin not dry, no jaundice, No spider nevi and no striae Rashes: no rashes Nails: normal Neuro General: oriented to person, oriented to place and oriented to time Cranial nerves: Yes Equal, round and reactive pupils present and Yes Normal hearing present Speech: No Abnormal speech present Extrem General: Yes normal to inspection, No clubbing, No cyanosis and No edema Psych Appearance: grossly normal and well kempt Mental Status: mental status grossly normal Speech and movement: Normal speech and movement present Affect: normal affect Attitude: cooperative Thought process: Normal thought process present and not confabulating Thought content: Normal thought content present Insight: Limited insight present (Psych) Judgement: Limited judgement present (Psych) Assessment & Plan Assessment & Plan (1) Cirrhosis: Code(s): K74.60 - Unspecified cirrhosis of liver Plan: Divehi #Martine LIve She will need a repeat MRI 6 mos after 08/2022 for indefinite liver lesions. She was having pain in the left abd that radiates to the back, the senna was not moving her bowels well so we progressed her to bisacodyl. She is still having a lot of bloating, and if I take the pills at night, I will go all day. This is with taking 2 pills qhs. I suggest that she try taking just 1 pill. She tried this and had less BM She still has pain in her back that is very strong and is weakening her legs. She was seen in the ER for this since our last visit but she was c/o total body aches. HOwever, she has DISH of the thoracic spine that is the likely source of this. She admits that even when she moves her bowels it does not effect her pain. She was referred to PT but they declined to treat her thinking it would only increase her pain. She may benefit from a referral to Pain mgmt. BUT she says she sees [facility] already. She says the ER doctor told me surgery may help, but given her age and the widespread manifestation of this in the thoracic spine this may be a questionable recommendation. She has not been helped with injections, they just made the pain worse. I think it is quite clear that her pain is from radiating/radicular back pain. She may benefit from a rheumatology referral, but we do not have one here - she says she can get to [facility]. I refer [facility] to [facility] and give her the phone # ROV 6 weeks to keli richardson for bloating She tells me as a doorknob c/o that her last scope was in 2002 in [place], and she has a family history of CRC in her sister!! She has not had one since then. I will get this ordered. She has COPD and is seen by here and will need to be cleared, no cardiac problems. There are no prior problems with anesthesia or sedation. NO ID problems.. Again her sister has colorectal cancer. Return office visit in 6 weeks to evaluate the change in her medications. (2) Constipation: Code(s): K59.00 - Constipation, unspecified (3) DISH (disseminated idiopathic skeletal hyperostosis): Comment: of thoracic spine via xr FINDINGS: No acute fracture or subluxation is identified. There is bony bridging seen about the anterior longitudinal ligament and right lateral aspect of T4 through T11 with left lateral bridging T9 through T11. Pedicles intact. No destructive bony lesions identified. Disc spaces are generally maintained. XR/XR thoracic spine 2V IMPRESSION: No acute fracture or subluxation of the thoracic spine identified. Multilevel bony bridging consistent with DISH. Dictated By: Ehsan Briggs MD Signed By: <Electronically signed by Ehsan Briggs MD in OV> 08/12/22 Code(s): M48.10 - Ankylosing hyperostosis [Forestier], site unspecified (4) Family history of colon cancer: Comment: sister of crc Code(s): Z80.0 - Family history of malignant neoplasm of digestive organs (5) Pre-op examination: Code(s): Z01.818 - Encounter for other preprocedural examination Orders: Orders Colonoscopy - GI Use Only 11/03/22 Z80.0 - Family history of malignant neoplasm of digestive organs, Z01.818 - Encounter for other preprocedural examination Referrals Rheumatology Referral M48.10 - Ankylosing hyperostosis [Forestier], site unspecified Medications: New peg 3350-electrolytes 236-22.74-6.74 -5.86 gram (Golytely) until fecal effluent is clear; do not exceed a total volume of 2,000 mL 240 mL PO Q10M 4,000 mL 0RF 1 day Z12.11 - Encounter for screening for malignant neoplasm of colon simethicone after meals 180 mg PO QID 120 caps 6RF 30 days Coding Level of Care Code Est Pt Level 4 (89811) Diagnoses Cirrhosis K74.60 Constipation K59.00 DISH (disseminated idiopathic skeletal hyperostosis) M48.10 Family history of colon cancer Z80.0 Pre-op examination Z01.818
[2022-11-03 10:45] VITALS: BP 103/65; PULSE 80; BMI 29.4
== END 2022-11-03 11:39 | disposition home or self-care (01) ==
PROVIDERS: PCP Internal Medicine; Visit Provider Nurse Practitioner
DX: K74.60 Unspecified cirrhosis of liver (principal); K59.00 Constipation, unspecified; M48.10 Ankylosing hyperostosis [Forestier], site unspecified; Z80.0 Family history of malignant neoplasm of digestive organs; Z01.818 Encounter for other preprocedural examination
CPT/HCPCS: 99214

== ENCOUNTER → 2022-11-03 10:39 | Outpatient (BNVA) | payer OTHER, SELFPAY | PROVIDERS: PCP Internal Medicine; Visit Provider Nurse Practitioner | DX: Z01.818 Encounter for other preprocedural examination (principal); K74.60 Unspecified cirrhosis of liver; K59.00 Constipation, unspecified; M48.10 Ankylosing hyperostosis [Forestier], site unspecified; Z80.0 Family history of malignant neoplasm of digestive organs | CPT/HCPCS: 99212 ==

== ENCOUNTER 2022-11-18 13:02 | Outpatient (REF) | payer OTHER, SELFPAY ==
--- NOTE | ~2022-11-18 | US_ITS ---
EXAMINATION: US RETROPERITONEAL LIMITED (RENAL ONLY) CLINICAL INFORMATION: Calculus of kidney. COMPARISON: MR abdomen without and with contrast 08/24/2022. Ultrasound abdomen limited 07/23/2022. TECHNIQUE: Real-time imaging of the kidneys. FINDINGS: RIGHT KIDNEY: 9.9 x 4.4 x 4.6 cm (SAG x AP x TRV). The kidney is normal in size, contour, and echogenicity. Renal cortical thickness is normal. No calculi or focal parenchymal lesions. No hydronephrosis. LEFT KIDNEY: 9.9 x 5.8 x 4.3 cm (SAG x AP x TRV). The kidney is normal in size and echogenicity. Renal cortical thickness is normal. No calculi or focal parenchymal lesions. No hydronephrosis. Lobulated contour at the lateral surface of the interpolar region, similar to priors. US/US renal BI IMPRESSION: No nephrolithiasis or hydronephrosis.
== END 2022-11-18 13:03 | disposition home or self-care (01) ==
LOC: HO.US 13:02
PROVIDERS: PCP Internal Medicine; Visit Provider Nurse Practitioner Family
DX: N13.30 Unspecified hydronephrosis (principal); N20.0 Calculus of kidney
CPT/HCPCS: 76775

== ENCOUNTER 2022-12-02 13:23 | Outpatient (AMB) | payer OTHER, SELFPAY ==
--- NOTE | 2022-12-02 13:55 | A.OFFVIS_ITS ---
Intake Intake Visit Reasons: 6m/US Intake Note: Patient is present for follow up ultrasound/hydronephrosis (imaging 11/18/22) Urology Medications: none Blood Thinner: none Slag Dumper Required: Yes Slag Dumper Name: KYRA Accompanied by: Self / Same As Patient Allergies naproxen Allergy (Intermediate, Verified 12/02/22 19:50) abdominal pain ibuprofen [From Motrin] Adverse Reaction (Mild, Verified 12/02/22 19:50) stomach pain Medication List - Last Reconciled 12/02/22 by ORESTES JeffersonP- albuterol sulfate 90 mcg/actuation 2 inhalations inhalation Q6H PRN 30 days bisacodyl (Dulcolax (bisacodyl)) 10 mg (2 x 5 mg) PO BEDTIME 30 days calcium carbonate-vitamin D3 250 mg-3.125 mcg (125 unit) (Oyster Shell Calcium- Vitamin D3) 1 tab PO BID 90 days cane As directed clonazepam 1 mg PO BEDTIME PRN 30 days diclofenac sodium 1% (Arthritis Pain (diclofenac)) 4 grams topical QID gabapentin 300 mg PO BEDTIME 30 days hydrocortisone 1% (Anti-Itch (hydrocortisone)) 1 appl topical BID PRN 30 days lidocaine 5% 2 patches topical DAILY 30 days morphine 15 mg PO Q8H PRN peg 3350-electrolytes 236-22.74-6.74 -5.86 gram (Golytely) 240 mL PO Q10M 1 day simethicone 180 mg PO QID 30 days tramadol 50 mg PO BID PRN 30 days HPI HPI Comments History of Present Illness Details Laura is a pleasant 72 year old Moroccan speaking patient of Dr. Evans. She has a past medical history of TMJ, emphysema of the lung, anemia, osteopenia, back pain, chronic pain syndrome, depression, and anxiety. She presents to the office today for a follow up. Recent renal imaging results reviewed with the patient today. Bilateral kidneys with no calculi, lesions, and or hydronephrosis noted. The left kidney is noted to be lobulated at the lateral surface of the interpolar region similar to prior studies. When asked patient reports to be doing and feeling well. BUN: 10/04--8, 04/08--10, 08/06--6, 11/06--7 Creatinine: 10/04--0.70, 04/08--0.65,08/06--0.67, 11/06--0.67 She reports to be following up with her PCP for ongoing arthritic pain she has been experiencing. She reports awaiting appointment with Rheumatology for further assessment evaluation. In office urinalysis results reviewed with the patient today. She denies any bothersome urinary issues or concerns at this time. When asked she denies urinary urgency, urinary frequency, incontinence, nocturia, hematuria, dysuria, foul smelling urine, changes to urinary stream, flank pain, fever, and or chills. She is happy with her current voiding parameters. She otherwise offers no other issues or concerns at this time. [facility] Medical History Temporomandibular joint (TMJ) pain Emphysema of lung Anemia Osteopenia Postmenopausal Back pain Obese Chronic pain syndrome Hypovitaminosis D Depression with anxiety Surgical History S/P FARRAH-BSO (total abdominal hysterectomy and bilateral salpingo-oophorectomy) Family History Father No problems noted. Mother No problems noted. Sister Colon cancer Social History Housing: Apartment Alcohol intake: never Patient Tobacco Use Status: Former Tobacco user Quit Date: 7 YRS AGO Tobacco use type: Cigarette e-Cigarette/Vaping Use: Never Used Second Hand Smoke Exposure: No Advance Directives Date on File: 01/12/22 service: No Current occupational status: unemployed Cognitive needs: Yes Hearing needs: No Vision needs: No Review of Systems Const Reports as per HPI Eyes Reports no additional complaints ENT Reports as per HPI Card Reports no additional complaints Resp Reports no additional complaints GI Reports no additional complaints Reports as per HPI Musc Reports as per HPI Psych Reports as per HPI Endo Reports no additional complaints Mateusz/Lymph Reports as per HPI Aller/Immun Reports no additional complaints Physical Exam Const General: cooperative, healthy appearing, comfortable, no acute distress, well developed, alert and awake Orientation/consciousness: patient oriented x3 Limitations: no limitations HEENT Head: Yes normal to inspection, Yes normocephalic and Yes atraumatic Ears: hearing grossly normal bilaterally Eyes General: appearance normal, both eyes and all related structures Neck Neck: Yes normal visual inspection and Yes trachea midline Chest Chest palpation & inspection: normal inspection of the chest Resp Effort & Inspection: normal respiratory effort and able to speak in complete sentences Cardio Rate: regular rate GI Inspection: Yes normal to inspection General: Yes no CVA tenderness Back/Spine/Pelvis Back: no CVA tenderness Skin General skin exam: no rashes or lesions noted Neuro General: patient oriented x3 Extrem General: Yes normal to inspection Psych Appearance: grossly normal and well kempt Mental Status: mental status grossly normal Speech and movement: Normal speech and movement present and Clear speech present Affect: normal affect Attitude: cooperative Thought process: Normal thought process present Thought content: Normal thought content present Insight: Fair insight present (Psych) Judgement: Fair judgement present (Psych) Results AMB Urinalysis, Automated UA Leukoctes 0 Gabriela/uL Last Edit by [employer] on 12/02/22 14:05 UA Nitrite Negative Last Edit by [employer] on 12/02/22 14:05 UA Urobilinogen 0.2 mg/dL Last Edit by [employer] on 12/02/22 14:05 UA Protein 0 mg/dL Last Edit by [employer] on 12/02/22 14:05 UA pH 6.0 Last Edit by [employer] on 12/02/22 14:05 UA Blood 0 Rafael/uL Last Edit by [employer] on 12/02/22 14:05 UA Specific [place] 1.015 Last Edit by [employer] on 12/02/22 14:05 UA Ketone Negative Last Edit by [employer] on 12/02/22 14:05 UA Bilirubin 0 mg/dL Last Edit by [employer] on 12/02/22 14:05 UA Glucose 0 mg/dL Last Edit by [employer] on 12/02/22 14:05 Results Reviewed Results Reviewed: Laboratory Last Values Urine pH (Auto) 6.0 12/02/22 13:58 Specific [place] (Auto) 1.015 12/02/22 13:58 Urine Protein (Auto) 0 mg/dL 12/02/22 13:58 Glucose (UA)(Auto) 0 mg/dL 12/02/22 13:58 Urine Ketones (Auto) Negative 12/02/22 13:58 Urine Blood (Auto) 0 Rafael/uL 12/02/22 13:58 Urine Nitrite (Auto) Negative 12/02/22 13:58 Urine Bilirubin (Auto) 0 mg/dL 12/02/22 13:58 Urine Urobilinogen (Auto) 0.2 mg/dL 12/02/22 13:58 Leukocyte Esterase (Auto) 0 Gabriela/uL 12/02/22 13:58 Date of Service: 11/18/22 EXAMINATION: US RETROPERITONEAL LIMITED (RENAL ONLY) FINDINGS: RIGHT KIDNEY: 9.9 x 4.4 x 4.6 cm (SAG x AP x TRV). The kidney is normal in size, contour, and echogenicity. Renal cortical thickness is normal. No calculi or focal parenchymal lesions. No hydronephrosis. LEFT KIDNEY: 9.9 x 5.8 x 4.3 cm (SAG x AP x TRV). The kidney is normal in size and echogenicity. Renal cortical thickness is normal. No calculi or focal parenchymal lesions. No hydronephrosis. Lobulated contour at the lateral surface of the interpolar region, similar to priors. IMPRESSION: No nephrolithiasis or hydronephrosis. Assessment & Plan Assessment & Plan (1) Hydronephrosis: Code(s): N13.30 - Unspecified hydronephrosis Plan In office urinalysis results reviewed with the patient today; as noted above. Recent renal imaging results reviewed with the patient today; as noted above. BUN and creatinine labs reviewed with the patient today; as noted above. Patient denies any bothersome urinary issues or concerns at this time. Patient reports be happy with current voiding parameters. Discussed, educated, encouraged to continue drinking plenty of water daily. Follow-up in 1 year with imaging to be completed prior; or sooner with any issues, concerns, and or questions. Orders: Orders AMB Urinalysis Automated Today Z13.9 - Encounter for screening, unspecified US renal BI 364 Days N20.0 - Calculus of kidney Patient Instructions: The patient had an opportunity to ask questions regarding the treatment plan. All questions were answered. Physical exam, labs, and imaging were discussed and reviewed in detail. As well as risks, benefits, and discussion of treatment choices. No major barriers to understanding were identified. The patient expressed understanding and agreement with the above treatment plan. The patient was made aware they should contact our office by phone for worsening of their current condition, the appearance of new symptoms, or with any questions or concerns. Compliance is encouraged with any medications and follow up testing that is ordered. It is a privilege to be allowed the opportunity to participate in? your urological care.? Again, if you have any questions or concerns If you have any questions or concerns please do not hesitate to contact me. The office is [phone]. This note is constructed using voice recognition software. While every effort has been made to ensure accuracy solution specialist errors may have been included. Yours sincerely, BHARATHI Jefferson Coding Level of Care Code Est Pt Level 3 (45509) Diagnoses Hydronephrosis N13.30
== END 2022-12-02 14:33 | disposition home or self-care (01) ==
PROVIDERS: Visit Provider Nurse Practitioner Family
DX: Z13.9 Encounter for screening, unspecified (principal); N13.30 Unspecified hydronephrosis
CPT/HCPCS: 99213

== ENCOUNTER → 2022-12-02 13:23 | Outpatient (BNVA) | payer OTHER, SELFPAY | PROVIDERS: Visit Provider Nurse Practitioner Family | DX: N13.30 Unspecified hydronephrosis (principal) | CPT/HCPCS: 81003; 99212 ==

== ENCOUNTER 2022-12-06 13:34 | Outpatient (AMB) | payer OTHER, SELFPAY ==
--- NOTE | 2022-12-06 13:58 | MHC.OFFVIS ---
Intake Vital Signs 12/06/22 13:59 Height 5 ft Weight 147 lb BMI 28.7 BP 110/70 Blood Pressure Location Rt brachial Position Sitting Pulse 72 Pulse Source Pulse Oximeter Pulse Oximetry (%) 97 Oxygen Delivery Method Room Air Intake Visit Reasons: Centrilobular emphysema - needs clearance for colo Merchandise Stocker Required: No Allergies naproxen Allergy (Intermediate, Verified 12/06/22 14:00) abdominal pain ibuprofen [From Motrin] Adverse Reaction (Mild, Verified 12/06/22 14:00) stomach pain HPI HPI Comments History of Present Illness Details The patient is a 72-year-old woman who apparently was in usual state health until back in beginning of the year she was evaluated at an outside hospital. There was a question of pulmonary emboli she ended up undergoing for CTA. The CTA demonstrated apparently some emphysema. Although, I could not find the actual report. Clinically, however the patient has been doing well denies any significant shortness of breath denies any significant coughing. She was a smoker but she quit many years ago. On further questioning she states that her mother also of emphysema although she was not a nonsmoker. She also had another sibling that develop significant emphysema as well. Therefore we did do a full 1 antitrypsin deficiency. Testing today. Should patient will also need PFTs. Clinically patient is doing well she that she does not need any inhaler therapy at this time. Her major complaint is really TMJ. She is having some discomfort on the right TMJ area. Her still open up her mouth to clench her teeth and touch the area. I did print her out some exercises for that. If the patient is no better she should follow-up with her primary care doctor regarding that issue. 12/06/2022 the patient is here for a pulmonary follow-up visit. She still complains of dyspnea on exertion. Sometimes she feels that she cannot take a deep breath in. The patient did have pulmonary function studies that I personally reviewed with her. 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 Also decreased diffusing capacity. Will go ahead and request a chest x-ray. If the x-ray is abnormal she is going to need additional testing such as a CT scan. She has all sorts of elements. The patient also complains of difficulty moving her right hand because numbness of her thumb area and pain as well. She has a hard time holding on to a cough because of the discomfort. She has been having this for now for several weeks. The patient is scheduled to see a director of advertising sales and early next year. In the meantime I do believe that because of the limitations will be reasonable for her to see orthopedic surgery for the right hand specially since his is limiting her ability to perform her activities of daily living. [facility] Medical History (Updated 12/06/22 @ 22:34 by Bear Rodriguez MD) Chronic restrictive lung disease Temporomandibular joint (TMJ) pain Emphysema of lung Anemia Osteopenia Postmenopausal Back pain Obese Chronic pain syndrome Hypovitaminosis D Depression with anxiety Surgical History S/P FARRAH-BSO (total abdominal hysterectomy and bilateral salpingo-oophorectomy) Family History Father No problems noted. Mother No problems noted. Sister Colon cancer Social History Housing: Apartment Alcohol intake: never Patient Tobacco Use Status: Former Tobacco user Quit Date: 7 YRS AGO Tobacco use type: Cigarette e-Cigarette/Vaping Use: Never Used Second Hand Smoke Exposure: No Advance Directives Date on File: 01/12/22 service: No Current occupational status: unemployed Cognitive needs: Yes Hearing needs: No Vision needs: No Review of Systems Const Denies fatigue and Denies fever(s) Eyes Denies change in vision ENT Reports mouth pain Card Denies chest pain and Denies dyspnea on exertion Resp Denies cough, Denies dyspnea on exertion and Denies wheezing GI Denies abdominal pain Musc Reports as per HPI, Reports myalgias, Reports arthralgias, Reports limited range of motion, Reports numbness, Reports stiffness and Reports tingling Skin/Breast Denies rash Neuro Reports no additional complaints, Reports numbness and Reports tingling Endo Denies fatigue Mateusz/Lymph Denies lymphadenopathy Aller/Immun Denies wheezing Physical Exam Vital Signs: Last Vital Signs Pulse 72 12/06/22 13:59 BP 110/70 12/06/22 13:59 Pulse Ox 97 12/06/22 13:59 Oxygen Delivery Method Room Air 12/06/22 13:59 BMI result Body Mass Index 28.7 Const General: cooperative HEENT Head: Yes atraumatic Neck Neck: Yes supple Chest Chest palpation & inspection: normal inspection of the chest Resp Effort & Inspection: normal respiratory effort Auscultation: clear to auscultation bilaterally Cardio Rate: regular rate Rhythm: regular rhythm Heart sounds: S1 normal heart sound present and S2 normal heart sound present GI Palpation (GI): Soft to palpation Skin General skin exam: no rashes or lesions noted Extrem General: Yes no clubbing, cyanosis or edema Assessment & Plan Assessment & Plan (1) Pre-op examination: Code(s): Z01.818 - Encounter for other preprocedural examination (2) Emphysema of lung: Code(s): J43.9 - Emphysema, unspecified Qualifiers: Emphysema type: centrilobular Qualified Code(s): J43.2 - Centrilobular emphysema (3) Centrilobular emphysema: Code(s): J43.2 - Centrilobular emphysema (4) Cirrhosis: Code(s): K74.60 - Unspecified cirrhosis of liver Qualifiers: Ascites presence: unspecified Hepatic cirrhosis type: unspecified hepatic cirrhosis Qualified Code(s): K74.60 - Unspecified cirrhosis of liver (5) Carpal tunnel syndrome: Code(s): G56.00 - Carpal tunnel syndrome, unspecified upper limb Qualifiers: Laterality: unspecified laterality Qualified Code(s): G56.00 - Carpal tunnel syndrome, unspecified upper limb (6) Chronic restrictive lung disease: Code(s): J98.4 - Other disorders of lung Plan The patient does have increase risk for perioperative pulmonary complications, including: atelectasis, hypoxia, bronchospasms and pneumonia. She is medically optimised and is able to proceed with her colonoscopy and anesthesia. CXR, may benefit from a CT chest Hand evaluation, not able to use her right hand trial of prednisone F/U 2-3 months Orders: Orders XR chest 2V Today J98.4 - Other disorders of lung Referrals Orthopedics Referral G56.00 - Carpal tunnel syndrome, unspecified upper limb Medications: New prednisone PO daily; Take 2 tabs daily x 5 days, then 1 tablet daily x 5 days 10 days 15 tabs 0RF Coding Level of Care Code Est Pt Level 4 (86127) Diagnoses Pre-op examination Z01.818 Centrilobular emphysema J43.2 Emphysema type: centrilobular Centrilobular emphysema J43.2 Hepatic cirrhosis, unspecified hepatic cirrhosis type, unspecified whether ascites present K74.60 Ascites presence: unspecified Hepatic cirrhosis type: unspecified hepatic cirrhosis Carpal tunnel syndrome, unspecified laterality G56.00 Laterality: unspecified laterality Chronic restrictive lung disease J98.4 Time Spent (min) 17
[2022-12-06 13:59] VITALS: BP 110/70; PULSE 72; O2SAT 97; BMI 28.7
== END 2022-12-06 14:22 | disposition home or self-care (01) ==
PROVIDERS: PCP Internal Medicine; Visit Provider Hospitalist
DX: Z01.818 Encounter for other preprocedural examination (principal); J43.2 Centrilobular emphysema; K74.60 Unspecified cirrhosis of liver; G56.00 Carpal tunnel syndrome, unspecified upper limb; J98.4 Other disorders of lung
CPT/HCPCS: 99214

== ENCOUNTER → 2022-12-06 13:34 | Outpatient (BNVA) | payer OTHER, SELFPAY | PROVIDERS: PCP Internal Medicine; Visit Provider Hospitalist | DX: Z01.818 Encounter for other preprocedural examination (principal); J43.2 Centrilobular emphysema; J98.4 Other disorders of lung; K74.60 Unspecified cirrhosis of liver; G56.00 Carpal tunnel syndrome, unspecified upper limb | CPT/HCPCS: 99212 ==

== ENCOUNTER 2022-12-07 09:36 | Outpatient (REF) | payer OTHER, SELFPAY ==
--- NOTE | ~2022-12-07 | XR_ITS ---
EXAMINATION: XR CHEST CLINICAL INFORMATION: Disorders of lung. COMPARISON: Thoracic spine 08/02/2022. TECHNIQUE: 2 views of the chest were obtained. FINDINGS: There is no gross pneumothorax. Heart size is normal. Lung volumes are low. Degenerative changes in the thoracic spine. No pleural effusion. Mild hazy opacity at the cardiac apex may represent pneumonia, atelectasis or fat pad and was possibly present on spine radiographs of 08/02/2022, but incompletely imaged. XR/XR chest 2V IMPRESSION: Mild hazy opacity at the cardiac apex may represent pneumonia, atelectasis or fat pad and was possibly present on spine radiographs of 08/02/2022, but incompletely imaged.
== END 2022-12-07 09:37 | disposition home or self-care (01) ==
LOC: HO.XRAY 09:36
PROVIDERS: PCP Internal Medicine; Visit Provider Hospitalist
DX: J98.4 Other disorders of lung (principal)
CPT/HCPCS: 71046

== ENCOUNTER 2023-01-04 09:44 | Outpatient (REF) | payer OTHER, SELFPAY ==
--- NOTE | ~2023-01-04 | XR_ITS ---
EXAMINATION: XR CHEST CLINICAL INFORMATION: Pneumonia COMPARISON: 12/07/2022 TECHNIQUE: 2 views of the chest were obtained. FINDINGS: Heart, mediastinum and pulmonary vessels within normal limits. Right lung is clear. Mild increased markings at the left heart border on previous radiograph have improved, question minor residual atelectasis. No consolidations or effusions. Bony structures are intact. XR/XR chest 2V IMPRESSION: Minor residual lingular atelectasis. No consolidations.
== END 2023-01-04 09:45 | disposition home or self-care (01) ==
LOC: HO.XRAY 09:44
PROVIDERS: PCP Internal Medicine; Visit Provider Hospitalist
DX: R93.89 Abnormal findings on diagnostic imaging of other specified body structures (principal)
CPT/HCPCS: 71046

== ENCOUNTER 2023-01-12 06:42 | Day surgery (SDC) | payer OTHER, SELFPAY ==
[2023-01-10 15:40] VITALS: BMI 28.7
--- NOTE | 2023-01-11 10:06 | P.CONAN_ITS ---
Documented by User: Estella Monge NP 01/11/23 10:07 HPI - Anesthesia Eval Consult details Narrative: 72yo F for Colonoscopy PMFSH Active Problems Active Problems: All Active Problems (Updated 12/22/22 @ 08:34 by Bear Rodriguez MD) Abnormal chest x-ray (Acute) Chronic restrictive lung disease (Acute) Carpal tunnel syndrome (Acute) Pre-op examination (Acute) Family history of colon cancer (Acute) DISH (disseminated idiopathic skeletal hyperostosis) (Acute) Sinus pain (Acute) Temporomandibular joint (TMJ) pain (Acute) Emphysema of lung (Acute) Constipation (Acute) Thoracic back pain (Acute) Centrilobular emphysema (Acute) Nodule on liver (Acute) Cirrhosis (Acute) Bilateral lower extremity pain (Acute) KEZIA (generalized anxiety disorder) (Acute) Left lumbar radiculitis (Acute) Lumbar spondylosis (Acute) Sacroiliitis (Acute) Lumbar degenerative disc disease (Acute) Muscle spasm (Acute) Left hip pain (Acute) Physical exam (Acute) Hydronephrosis (Acute) Postmenopausal (Acute) Back pain (Acute) Obese (Acute) Chronic pain syndrome (Acute) Hypovitaminosis D (Acute) Depression with anxiety (Acute) Past Medical History Medical History (Updated 12/22/22 @ 08:34 by Bear Rodriguez MD) Chronic restrictive lung disease Temporomandibular joint (TMJ) pain Emphysema of lung Anemia Osteopenia Postmenopausal Back pain Obese Chronic pain syndrome Hypovitaminosis D Depression with anxiety Family History Family History Father No problems noted. Mother No problems noted. Sister Colon cancer Family history of problems with anesthesia: No Surgical History Surgical History S/P FARRAH-BSO (total abdominal hysterectomy and bilateral salpingo-oophorectomy) History of Problems with Anesthesia: No Social History Social History Housing: Apartment Alcohol intake: never Patient Tobacco Use Status: Former Tobacco user Quit Date: 7 YRS AGO Tobacco use type: Cigarette e-Cigarette/Vaping Use: Never Used Second Hand Smoke Exposure: No Advance Directives: No Advance Directives Information Provided: Yes Advance Directives Date on File: 01/12/22 service: No Current occupational status: unemployed Cognitive needs: Yes Hearing needs: No Vision needs: No Meds Allergies Allergy/AdvReac Type Severity Reaction Status Date / Time naproxen Allergy Intermediate abdominal Verified 12/06/22 14:00 pain ibuprofen [From Motrin] AdvReac Mild stomach Verified 12/06/22 14:00 pain Exam Height,Weight and Vital Signs: Height 5 ft Weight 66.678 kg Pertinent Lab Results Pertinent Lab Results: Laboratory Tests 10/22/22 14:08 WBC 6.9 Hgb 12.6 Hct 40.0 Plt Count 358 Sodium 139 Potassium 4.0 Chloride 106 Carbon Dioxide 29 BUN 7 L Creatinine 0.67 Narrative Narrative: EKG 10/2022 Vent. Rate : 084 BPM Atrial Rate : 084 BPM P-R Int : 138 ms QRS Dur : 070 ms QT Int : 346 ms P-R-T Axes : 036 054 047 degrees QTc Int : 408 ms Normal sinus rhythm Normal ECG When compared with ECG of 23-JUL-2022 17:20, No significant change was found Assessment and Plan Assessment Anesthesia Assessment: Chart Reviewed Final Anesthetic Review Family History of Problems with Anesthesia: No History of Problems with Anesthesia: No Documented by User: Meet Romero MD 01/12/23 08:22 [facility] Past Medical History Medical History (Updated 12/22/22 @ 08:34 by Bear Rodriguez MD) Chronic restrictive lung disease Temporomandibular joint (TMJ) pain Emphysema of lung Anemia Osteopenia Postmenopausal Back pain Obese Chronic pain syndrome Hypovitaminosis D Depression with anxiety Family History Family History Father No problems noted. Mother No problems noted. Sister Colon cancer Surgical History Surgical History S/P FARRAH-BSO (total abdominal hysterectomy and bilateral salpingo-oophorectomy) Social History Social History Housing: Apartment Alcohol intake: never Patient Tobacco Use Status: Former Tobacco user Quit Date: 7 YRS AGO Tobacco use type: Cigarette e-Cigarette/Vaping Use: Never Used Second Hand Smoke Exposure: No Advance Directives: No Advance Directives Information Provided: Yes Advance Directives Date on File: 01/12/22 service: No Current occupational status: unemployed Cognitive needs: Yes Hearing needs: No Vision needs: No Meds Allergies Allergy/AdvReac Type Severity Reaction Status Date / Time naproxen Allergy Intermediate abdominal Verified 12/06/22 14:00 pain ibuprofen [From Motrin] AdvReac Mild stomach Verified 12/06/22 14:00 pain Exam Airway Mallampati Class: II TM Dist: >3cm Neck ROM: Full Assessment and Plan Assessment Anesthesia Assessment: Anesthesia Plan Discussed Final Anesthetic Review NPO: Yes ASA Class: III Final Preanesthetic Review: No Changes in Pt Med Stat, Meds/Allgs Chart Reviewed, Consent Obtained/Reviewed and Anes Risks/Benef Reviewed Patient Risk: Intermediate Procedure Risk: Low Anesthetic Plan Anesthetic Plan: MAC: Disposition: Standard PACU
[2023-01-12 08:41] VITALS: BMI 28.7
--- NOTE | 2023-01-12 08:48 | HO.ANESPROP2 ---
[facility] Active Problems Active Problems: All Active Problems (Updated 12/22/22 @ 08:34 by Bear Rodriguez MD) Abnormal chest x-ray (Acute) Chronic restrictive lung disease (Acute) Carpal tunnel syndrome (Acute) Pre-op examination (Acute) Family history of colon cancer (Acute) DISH (disseminated idiopathic skeletal hyperostosis) (Acute) Sinus pain (Acute) Temporomandibular joint (TMJ) pain (Acute) Emphysema of lung (Acute) Constipation (Acute) Thoracic back pain (Acute) Centrilobular emphysema (Acute) Nodule on liver (Acute) Cirrhosis (Acute) Bilateral lower extremity pain (Acute) KEZIA (generalized anxiety disorder) (Acute) Left lumbar radiculitis (Acute) Lumbar spondylosis (Acute) Sacroiliitis (Acute) Lumbar degenerative disc disease (Acute) Muscle spasm (Acute) Left hip pain (Acute) Physical exam (Acute) Hydronephrosis (Acute) Postmenopausal (Acute) Back pain (Acute) Obese (Acute) Chronic pain syndrome (Acute) Hypovitaminosis D (Acute) Depression with anxiety (Acute) Past Medical History Medical History Chronic restrictive lung disease Temporomandibular joint (TMJ) pain Emphysema of lung Anemia Osteopenia Postmenopausal Back pain Obese Chronic pain syndrome Hypovitaminosis D Depression with anxiety Family History Family History Father No problems noted. Mother No problems noted. Sister Colon cancer Family history of problems with anesthesia: No Surgical History Surgical History S/P FARRAH-BSO (total abdominal hysterectomy and bilateral salpingo-oophorectomy) History of Problems with Anesthesia: No Social History Social History Housing: Apartment Alcohol intake: never Patient Tobacco Use Status: Former Tobacco user Quit Date: 7 YRS AGO Tobacco use type: Cigarette e-Cigarette/Vaping Use: Never Used Second Hand Smoke Exposure: No Advance Directives: No Advance Directives Information Provided: Yes Advance Directives Date on File: 01/12/22 service: No Current occupational status: unemployed Cognitive needs: Yes Hearing needs: No Vision needs: No Meds Allergies Allergy/AdvReac Type Severity Reaction Status Date / Time naproxen Allergy Intermediate abdominal Verified 12/06/22 14:00 pain ibuprofen [From Motrin] AdvReac Mild stomach Verified 12/06/22 14:00 pain Active Medications: Current Medications Lactated Ringer's (Lr) 1,000 mls @ 100 mls/hr IVCONT .Q10H BJ Exam Height,Weight and Vital Signs: Height 5 ft Weight 66.678 kg Airway Mallampati Class: II TM Dist: >3cm Neck ROM: Full Denture: Upper Assessment and Plan Assessment Anesthesia Assessment: Anesthesia Plan Discussed and Chart Reviewed Final Anesthetic Review Family History of Problems with Anesthesia: No History of Problems with Anesthesia: No NPO: Yes ASA Class: III Final Preanesthetic Review: No Changes in Pt Med Stat, Meds/Allgs Chart Reviewed, Consent Obtained/Reviewed and Anes Risks/Benef Reviewed Patient Risk: Intermediate Procedure Risk: Low Anesthetic Plan Anesthetic Plan: MAC: Disposition: Standard PACU
[2023-01-12 08:53] VITALS: BP 118/77; PULSE 78; RESP 18; TEMP 36.4; O2SAT 99
--- NOTE | 2023-01-12 08:53 | MHC.SHP ---
Pre-Procedural Eval Section A Date of Service: 01/12/23 Section B Chief Complaint: Family history of malignant neoplasm of digestive Details of Present Illness: sister with colon cacner Relevant Family History (Specify if Yes): Yes Relevant Social History: None Present Medications: see Short Stay Collaborative assessment Medical History: Significant History (Chronic restrictive lung disease Temporomandibular joint (TMJ) pain Emphysema of lung Anemia Osteopenia Postmenopausal Back pain Obese Chronic pain syndrome Hypovitaminosis D Depression with anxiety) History of Previous Operations: Relevant previous surgery/procedure and date(s) (FARRAH, BSO) Allergies: Allergies Allergy/AdvReac Type Severity Reaction Status Date / Time naproxen Allergy Intermediate abdominal Verified 12/06/22 14:00 pain ibuprofen [From Motrin] AdvReac Mild stomach Verified 12/06/22 14:00 pain Review of Systems Sugical H&P ROS: Negative: Constitution, Cardiovascular, Respiratory, Neurological, Psychiatric, Hem-Onc, Allergic/Immunologic, Gastrointestinal, Genitourinary, Musculoskeletal, Integumentary, Endocrine and Eyes/Ears/Nose/Throat Exam Surgical H&P Exam: Normal: HEENT, Normal: Heart, Normal: Lungs, Normal: Extremities, Normal: Abdomen, Normal: Skin and Normal: Neurological Plan Diagnosis/Plan: Unchanged I have reviewed the history and physical and performed a pertinent physical examination on my patient. No changes have occurred unless specified. Time Spent With Patient Time: Total time managing care of this patient today ____ minutes.
[2023-01-12] MEDS: Lactated Ringers 1,000 ML 100 ML IVCONT (08:55)
--- NOTE | 2023-01-12 09:06 | W.PM.OPN ---
Operative Note Operative Note Date of Service: 01/12/23 Narrative: Operative Information Procedure Description: Colonoscopy Indication: screening, FH of CRC Anesthesia: MAC COLONOSCOPY Instrument: Olympus variable stiffness pediatric scope 190L Colonoscopy Monitoring: Vital signs and clinical assessment, continuous EKG monitoring, Pulse oximetry, Carbon Dioxide monitoring and blood pressure monitoring were done throughout the procedure. Colon withdrawal time was 20 minutes. Procedure: The patient was placed in the left lateral decubitis position and pre-procedure medications were administered. After a digital rectal examination of the ano-rectum, the video colonoscope was inserted into the rectum and advanced through the colon to the cecum/TI. The colonoscope was slowly withdrawn in a retrograde panoramic fashion and the colon mucosa was carefully examined including a retroflexed view of the rectum. Findings and interventions are described below. Procedure Difficulty: moderate, pressure applied to get to cecum Findings: Terminal Ileum-normal Severe melanosis coli Cecum: z shaped flat polyp about 10-12 mm lifted with eleview and then removed with cold snare with 2 clips applied for hemostasis Ascending Colon: normal Transverse Colon - 10 mm sessile polyp removed with cold snare Descending Colon: 12-14 mm sessile polyp removed with cold snare and x 2clips applied for hemostasis Sigmoid Colon: normal Rectum: Retroflexion with medium internal hemorrhoids, grade I Anorectum - normal Colon preparation: [place] Bowel Preparation Scale Right colon; 2 Transverse colon: 2 Left colon; 3 (0 = Unprepared colon segment with mucosa not seen due to solid stool that cannot be cleared. 1 = Portion of mucosa of the colon segment seen, but other areas of the colon segment not well seen due to staining, residual stool and/or opaque liquid. 2 = Minor amount of residual staining, small fragments of stool and/or opaque liquid, but mucosa of colon segment seen well. 3 = Entire mucosa of colon segment seen well with no residual staining, small fragments of stool or opaque liquid) Impression and Post Procedure Diagnosis: polyps internal hemorrhoids melanosis coli Plan: High fiber diet leaflet Avoid straining at stool, epsom salts and sitz bath, anusol supps or cream Repeat Colonoscopy in 2-3 years or earlier if clinically indicated Above findings were reviewed with the patient and relevant handouts were provided if indicated.
[2023-01-12 09:53] VITALS: BP 141/85; PULSE 88; RESP 16; TEMP 36.1; O2SAT 94
[2023-01-12 10:08] VITALS: BP 130/77; PULSE 71; RESP 16; TEMP 36.1; O2SAT 95
== END 2023-01-12 11:00 | disposition home or self-care (01) ==
PROVIDERS: PCP Internal Medicine; Visit Provider Internal Medicine Gastroenterology
PROC: 0DJD8ZZ Inspection of Lower Intestinal Tract, Via Natural or Artificial Opening Endoscopic (ICD-10-PCS; CPT 45378; principal; 2023-01-12 09:10)
DX: Z12.11 Encounter for screening for malignant neoplasm of colon (principal); D12.0 Benign neoplasm of cecum; D12.4 Benign neoplasm of descending colon; K63.89 Other specified diseases of intestine; K64.0 First degree hemorrhoids; Z80.0 Family history of malignant neoplasm of digestive organs; K74.60 Unspecified cirrhosis of liver; K59.00 Constipation, unspecified; J43.9 Emphysema, unspecified; M48.10 Ankylosing hyperostosis [Forestier], site unspecified; G89.4 Chronic pain syndrome; F41.8 Other specified anxiety disorders; Z87.891 Personal history of nicotine dependence
CPT/HCPCS: 45385; 45381; 88305; J2704

== ENCOUNTER → 2023-01-12 06:42 | Outpatient (BNV) | payer OTHER, SELFPAY | PROVIDERS: PCP Internal Medicine; Visit Provider Internal Medicine Gastroenterology | DX: Z12.11 Encounter for screening for malignant neoplasm of colon (principal); K63.5 Polyp of colon; K63.89 Other specified diseases of intestine; Z80.0 Family history of malignant neoplasm of digestive organs | CPT/HCPCS: 45381; 45385 ==

== ENCOUNTER 2023-01-18 09:52 | Outpatient (AMB) | payer OTHER, SELFPAY ==
--- NOTE | 2023-01-18 09:59 | A.OFFVIS_ITS ---
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 Patient reports her right hand is worse than the left hand. She states that she have been having numbness for a month. Patient reports that her left hand just has pain. She reports that her right thumb is the one finger that gets numb often. 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 The patient reports her right hand is worse then her left hand. She states most of her pain is located in the right thumb, but has numbness and tingling throughout all the digits bilaterally. ON LICENSE OF [facility] Medical History (Updated 01/18/23 @ 10:32 by Radha Figueroa) Chronic restrictive lung disease Temporomandibular joint (TMJ) pain Emphysema of lung Anemia Osteopenia Postmenopausal Back pain Obese Chronic pain syndrome Hypovitaminosis D Depression with anxiety Surgical History S/P FARRAH-BSO (total abdominal hysterectomy and bilateral salpingo-oophorectomy) Family History Father No problems noted. Mother No problems noted. Sister Colon cancer Social History Housing: Apartment Alcohol intake: never Patient Tobacco Use Status: Former Tobacco user Quit Date: 7 YRS AGO Tobacco use type: Cigarette e-Cigarette/Vaping Use: Never Used Second Hand Smoke Exposure: No Advance Directives Date on File: 01/12/22 service: No Current occupational status: unemployed Cognitive needs: Yes Hearing needs: No Vision needs: No Review of Systems Const All systems reviewed & are unremarkable except as noted in HPI and below Physical Exam Vital Signs: BMI result Body Mass Index 28.7 Const General: cooperative and no acute distress Orientation/consciousness: patient oriented x3 Resp Effort & Inspection: normal respiratory effort and able to speak in complete sentences Cardio Peripheral pulses: Peripheral pulses 2+ throughout Skin General skin exam: no rashes or lesions noted Neuro General: patient oriented x3 Extrem Other: Bilateral hands: Lacking about 2 cm from making a closed fist bilaterally. Able to perform full extension. Unable to perform finger cross. Flat okay sign. Able to perform thumbs up. Positive Tinel?s at the carpal tunnel bilaterally. Capillary refill is brisk. Assessment & Plan Assessment & Plan (1) Left carpal tunnel syndrome: Code(s): G56.02 - Carpal tunnel syndrome, left upper limb (2) Right carpal tunnel syndrome: Code(s): G56.01 - Carpal tunnel syndrome, right upper limb Plan Ms. Wang is a 72-year-old right hand dominant female, who is Monegasque speaking, presents in the office today, as a new patient, for an evaluation of bilateral hand numbness, tingling, and pain; which has been going on for several months. The patient reports her right hand is worse then her left hand. She states most of her pain is located in the right thumb, but has numbness and tingling throughout all the digits bilaterally. The patient will be referred for an EMG of the bilateral upper extremities to further evaluate. We will discuss the possibility of surgical intervention for carpal tunnel release after the results of the EMG are reviewed. Follow up will be after EMG is obtained, or sooner if needed. Orders: Orders NE electromyogram (EMG) Today G56.00 - Carpal tunnel syndrome, unspecified upper limb Patient Instructions: Scribed for Debo Murphy PA-C by Radha Figueroa biomedical equipment technician, on 01/18/2023 at 9:56 am, EST. Coding Level of Care Code New Pt Level 4 (84655) Diagnoses Left carpal tunnel syndrome G56.02 Right carpal tunnel syndrome G56.01
[2023-01-18 10:03] VITALS: BMI 28.7
== END 2023-01-18 10:26 | disposition home or self-care (01) ==
PROVIDERS: PCP Internal Medicine; Visit Provider Physician Assistant
DX: G56.03 Carpal tunnel syndrome, bilateral upper limbs (principal)
CPT/HCPCS: 99203

== ENCOUNTER → 2023-01-18 09:52 | Outpatient (BNVA) | payer OTHER, SELFPAY | PROVIDERS: PCP Internal Medicine; Visit Provider Physician Assistant | DX: G56.03 Carpal tunnel syndrome, bilateral upper limbs (principal) | CPT/HCPCS: 99202 ==

== ENCOUNTER 2023-01-24 09:31 | Outpatient (AMB) | payer OTHER, SELFPAY ==
[2023-01-24 09:48] VITALS: BP 102/62; PULSE 64; BMI 29.2
--- NOTE | 2023-01-24 09:48 | A.OFFPC_ITS ---
Vital Signs 01/24/23 09:48 Height 5 ft Weight 149 lb 8 oz BMI 29.2 BP 102/62 Blood Pressure Location Lt brachial Position Sitting Pulse 64 Pulse Source Pulse Oximeter Oxygen Delivery Method Room Air Intake Visit Reasons: Annual Physical Intake Note: Patient is here today for a physical. Quality Assurance Qa Lab Technician Required: No Accompanied by: Self / Same As Patient Allergies naproxen Allergy (Intermediate, Verified 01/24/23 10:01) abdominal pain ibuprofen [From Motrin] Adverse Reaction (Mild, Verified 01/24/23 10:01) stomach pain Medication List - Last Reconciled 01/24/23 by Zoe Dillard MD albuterol sulfate 90 mcg/actuation 2 inhalations inhalation Q6H PRN 30 days bisacodyl (Dulcolax (bisacodyl)) 10 mg (2 x 5 mg) PO BEDTIME 30 days calcium carbonate-vitamin D3 250 mg-3.125 mcg (125 unit) (Oyster Shell Calcium- Vitamin D3) 1 tab PO BID 90 days cane quad cane clonazepam 1 mg PO BEDTIME PRN 30 days diclofenac sodium 1% (Arthritis Pain (diclofenac)) 4 grams topical QID gabapentin 300 mg PO BEDTIME 30 days Grab bar As directed hydrocortisone 1% (Anti-Itch (hydrocortisone)) 1 appl topical BID PRN 30 days lidocaine 5% 2 patches topical DAILY 30 days morphine 15 mg PO Q8H PRN peg 3350-electrolytes 236-22.74-6.74 -5.86 gram (Golytely) 240 mL PO Q10M 1 day [raised toilet seat As directed] simethicone 180 mg PO QID 30 days tramadol 50 mg PO BID PRN 30 days Tobacco use date assessed: 07/05/22 Fall risk assessment: No Falls in past year Last assessed Fall Risk: 01/24/23 Dental Screening Dental Screen Date: 01/24/23 Did you have a dental visit in the last 12 months?: Yes Did you have a dental problem in the last 6 months where you did not have access to dental care?: No Was dental information given to patient?: Patient has dentist HPI HPI Comments History of Present Illness Details This is a 72-year-old female with centrilobular emphysema and cirrhosis that comes for her physical exam. Cirrhosis is follow by Gastroenterology. Emphysema follow by pulmonology. Last mammogram was February 2022 and was normal. Last colonoscopy was December 2022 showing tubular adenoma and hyperpla stic polyp. No chest pain or shortness of breath. [facility] Medical History (Updated 01/24/23 @ 10:12 by Zoe Dillard MD) Chronic restrictive lung disease Temporomandibular joint (TMJ) pain Emphysema of lung Anemia Osteopenia Postmenopausal Back pain Obese Chronic pain syndrome Hypovitaminosis D Depression with anxiety Surgical History S/P FARRAH-BSO (total abdominal hysterectomy and bilateral salpingo-oophorectomy) Family History (Updated 01/24/23 @ 10:06 by Zoe Dillard MD) Father No problems noted. Mother Emphysema lung Sister Colon cancer Social History Housing: Apartment Alcohol intake: never Patient Tobacco Use Status: Former Tobacco user Quit Date: 7 YRS AGO Tobacco use type: Cigarette e-Cigarette/Vaping Use: Never Used Second Hand Smoke Exposure: No Advance Directives Date on File: 01/12/22 service: No Current occupational status: unemployed Cognitive needs: Yes Hearing needs: No Vision needs: No Questionnaire Thrive Questionnaire Date Thrive assessed: 07/05/22 KEZIA-7 AMB Questionnaire KEZIA-7 Date KEZIA - 7 assessed: 07/05/22 Source: Developed by Drs. Jose Carlos Remy, Meagan Oviedo, Rob Belle and colleagues, with an educational stanley from [employer]. Review of Systems Const All systems reviewed & are unremarkable except as noted in HPI and below Eyes Reports no additional complaints, Denies change in vision and Denies other visual disturbances Card Denies chest pain at rest, Denies chest pain with activity, Denies edema, Denies irregular heart rhythm, Denies claudication, Denies dyspnea, Denies dyspnea on exertion, Denies orthopnea, Denies paroxysmal nocturnal dyspnea and Denies slow heart rate Resp Denies cough, Denies dyspnea and Denies dyspnea on exertion GI Denies abdominal pain, Denies change in bowel habits, Denies excessive flatus, Denies nausea and Denies vomiting Denies urinary incontinence, Denies urinary hesitancy and Denies urinary urgency Musc Denies abnormal gait, Denies atrophy, Denies deformity and Denies limited range of motion Skin/Breast Denies bleeding lesions, Denies changing lesions and Denies rash Neuro Denies abnormal gait, Denies behavioral changes, Denies confusion and Denies lack of coordination Psych Denies behavioral changes and Denies confusion Physical exam (Primary Care) Vital Signs: Last Vital Signs Pulse 64 01/24/23 09:48 BP 102/62 01/24/23 09:48 Oxygen Delivery Method Room Air 01/24/23 09:48 BMI result Body Mass Index 29.2 Tobacco/Smoking Status: Tobacco use Status Tobacco use date assessed 07/05/22 01/24/23 09:50 Patient Tobacco Use Status Former Tobacco user 01/24/23 09:50 Tobacco use type Cigarette 01/24/23 09:50 e-Cigarette/Vaping Use Never Used 01/24/23 09:50 Thrive Assessment: Date of Thrive Assessment Date Thrive assessed 07/05/22 01/24/23 09:50 Const General: No confusion Orientation/consciousness: patient oriented x3 and No confusion HENMT Head: Yes normal to inspection, Yes normocephalic and Yes atraumatic Ears: external ears normal Eyes General: appearance normal, both eyes and all related structures Eyelids: Yes eyelids normal Conjunctivae: conjunctivae normal Neck Neck: Yes normal visual inspection and Yes supple Resp Effort & Inspection: normal respiratory effort Auscultation: clear to auscultation bilaterally Cardio Jugular venous distension: no JVD Rate: regular rate Rhythm: regular rhythm Heart sounds: S1 normal heart sound present and S2 normal heart sound present GI Inspection: Yes normal to inspection Palpation (GI): Soft to palpation and nontender Auscultation: normal bowel sounds Skin General skin exam: no rashes or lesions noted Neuro General: patient oriented x3, no focal motor deficits and No confusion Extrem General: Yes full ROM Psych Appearance: grossly normal Assessment and Plan Assessment & Plan (1) Physical exam: Code(s): Z00.00 - Encounter for general adult medical examination without abnormal findings Plan: Repeat in a year. (2) Centrilobular emphysema: Code(s): J43.2 - Centrilobular emphysema Plan: Follow-up with pulmonology. (3) Cirrhosis: Code(s): K74.60 - Unspecified cirrhosis of liver Qualifiers: Hepatic cirrhosis type: unspecified hepatic cirrhosis Ascites presence: unspecified Qualified Code(s): K74.60 - Unspecified cirrhosis of liver Plan: Follow up with Gastroenterology. Orders: Orders XR DEXA axial skeleton Today N95.9 - Unspecified menopausal and perimenopausal disorder Vitamin D 25-OH Total Today E55.9 - Vitamin D deficiency, unspecified Lipid Panel Today E78.5 - Hyperlipidemia, unspecified Comprehensive [place]. Panel Fast Today G89.4 - Chronic pain syndrome Referrals Ophthalmology Referral H53.8 - Other visual disturbances Coding Level of Care Code Est Pt Prev Care >65y(39391) Diagnoses Physical exam Z00.00 Centrilobular emphysema J43.2 Hepatic cirrhosis, unspecified hepatic cirrhosis type, unspecified whether ascites present K74.60 Hepatic cirrhosis type: unspecified hepatic cirrhosis Ascites presence: unspecified Time Spent (min) 32
== END 2023-01-24 10:16 | disposition home or self-care (01) ==
PROVIDERS: Visit Provider Internal Medicine
DX: Z00.00 Encounter for general adult medical examination without abnormal findings (principal); J43.2 Centrilobular emphysema; K74.60 Unspecified cirrhosis of liver
CPT/HCPCS: 99397

== ENCOUNTER 2023-01-25 09:27 | Outpatient (REF) | payer OTHER, SELFPAY ==
[2023-01-25 10:39] LABS: Influenza A PCR NEGATIVE (Negative); Influenza B PCR NEGATIVE (Negative); Resp Syncy Virus RNA Qual PCR NEGATIVE (Negative); SARS COV2 PCR INHOUSE NEGATIVE (Negative)
[2023-01-25 10:44] LABS: Alanine Aminotransferase 13 U/L (0-31); Alkaline Phosphatase 111 U/L (39-117); Anion Gap 12 (12-20); Aspartate Amino Transferase 23 U/L (5-31); Bilirubin Total 0.5 mg/dL (0.0-1.0); Blood Urea Nitrogen 6 mg/dL (9-16); Carbon Dioxide 26 mmol/L (22-29); Chloride 107 mmol/L (96-108); Cholesterol 178 mg/dL (<200); Estimated Glomerular Filt Rate > 60; Glucose Fasting 100 mg/dL (60-99); HDL Cholesterol 62 mg/dL (>40); LDL Cholesterol Calculated 104 mg/dL (<100); Potassium 3.7 mmol/L (3.3-5.1); Sodium 141 mmol/L (135-145); Total Protein 6.8 g/dL (6.5-8.0); Triglycerides 61 mg/dL (<150)
[2023-01-25 11:00] LABS: Vitamin D 25-OH Total 19.2 ng/mL (>30)
== END 2023-01-25 09:28 | disposition home or self-care (01) ==
LOC: HO.LAB 09:27
PROVIDERS: PCP Internal Medicine; Visit Provider Internal Medicine
DX: Z11.52 Encounter for screening for COVID-19 (principal); Z20.822 Contact with and (suspected) exposure to COVID-19; R09.89 Other specified symptoms and signs involving the circulatory and respiratory systems; E55.9 Vitamin D deficiency, unspecified; G89.4 Chronic pain syndrome; E78.5 Hyperlipidemia, unspecified
CPT/HCPCS: 0241U; 80053; 80061; 82306

== ENCOUNTER 2023-02-25 09:55 | Outpatient (AMB) | payer OTHER, SELFPAY ==
[2023-02-25 09:59] VITALS: PULSE 86; O2SAT 98; BMI 29.1
--- NOTE | 2023-02-25 09:59 | A.OFFVIS_ITS ---
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 There was a question of pulmonary emboli she ended up undergoing for CTA. The CTA demonstrated apparently some emphysema. Although, I could not find the actual report. Clinically, however the patient has been doing well denies any significant shortness of breath denies any significant coughing. She was a smoker but she quit many years ago. On further questioning she states that her mother also of emphysema although she was not a nonsmoker. She also had another sibling that develop significant emphysema as well. Therefore we did do a full 1 antitrypsin deficiency. Testing today. Should patient will also need PFTs. Clinically patient is doing well she that she does not need any inhaler therapy at this time. Her major complaint is really TMJ. She is having some discomfort on the right TMJ area. Her still open up her mouth to clench her teeth and touch the area. I did print her out some exercises for that. If the patient is no better she should follow-up with her primary care doctor regarding that issue. 12/06/2022 the patient is here for a pul monary follow-up visit. She still complains of dyspnea on exertion. Sometimes she feels that she cannot take a deep breath in. The patient did have pulmonary function studies that I personally reviewed with her. 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 Also decreased diffusing capacity. Will go ahead and request a chest x-ray. If the x-ray is abnormal she is going to need additional testing such as a CT scan. She has all sorts of elements. The patient also complains of difficulty moving her right hand because numbness of her thumb area and pain as well. She has a hard time holding on to a cough because of the discomfort. She has been having this for now for several weeks. The patient is scheduled to see a respiratory medicine physician and early next year. In the meantime I do believe that because of the limitations will be reasonable for her to see orthopedic surgery for the right hand specially since his is limiting her ability to perform her activities of daily living. 02/25/2023 the patient is here for pulmon carly follow-up visit. The patient is complaining of worsening shortness breath specially at nighttime. She states that sometimes is pretty significant. Has a hard time sleeping because of it. Sometimes she wakes up from a sound sleep. Moderate severity. She was given levo albuterol solution for the nebulizer and this does help her. She also has a rescue inhaler. The patient did have PFTs back in October and at that point she did have a significant reversible obstruction consistent with asthma. Therefore, placed on a maintenance inhaler Breo 200. She can uses once a day and she should rinse her mouth. I did teach how to use it. The patient also is having issues at nighttime when she wakes up with shortness of breath. Indeed she does have daytime drowsiness with an elevated [place] score of 11/24. In view of her ongoing symptoms doing a home sleep study will be also important to rule out underlying sleep apnea. I did review her chest x-ray that she had in the fall 2022 demonstrating some minimal atelectasis. Otherwise no active lung disease appreciated. [facility] Medical History Chronic restrictive lung disease Temporomandibular joint (TMJ) pain Emphysema of lung Anemia Osteopenia Postmenopausal Back pain Obese Chronic pain syndrome Hypovitaminosis D Depression with anxiety Surgical History S/P [id number] (total abdominal hysterectomy and bilateral salpingo-oophorectomy) Family History (Updated 01/24/23 @ 10:06 by Zoe Dillard MD) Father No problems noted. Mother Emphysema lung Sister Colon cancer Social History Housing: Apartment Alcohol intake: never Patient Tobacco Use Status: Former Tobacco user Quit Date: 7 YRS AGO Tobacco use type: Cigarette e-Cigarette/Vaping Use: Never Used Second Hand Smoke Exposure: No Advance Directives Date on File: 01/12/22 service: No Current occupational status: unemployed Cognitive needs: Yes Hearing needs: No Vision needs: No Review of Systems Const Denies fatigue and Denies fever(s) Eyes Denies change in vision ENT Reports mouth pain Card Denies chest pain and Denies dyspnea on exertion Resp Denies cough, Denies dyspnea on exertion and Denies wheezing GI Denies abdominal pain Musc Reports as per HPI, Reports myalgias, Reports arthralgias, Reports limited range of motion, Reports numbness, Reports stiffness and Reports tingling Skin/Breast Denies rash Neuro Reports no additional complaints, Reports numbness and Reports tingling Endo Denies fatigue Mateusz/Lymph Denies lymphadenopathy Aller/Immun Denies wheezing Physical Exam Vital Signs: Last Vital Signs Pulse 86 02/25/23 09:59 Pulse Ox 98 02/25/23 09:59 Oxygen Delivery Method Room Air 02/25/23 09:59 BMI result Body Mass Index 29.1 Const General: cooperative HEENT Head: Yes atraumatic Neck Neck: Yes supple Chest Chest palpation & inspection: normal inspection of the chest Resp Effort & Inspection: normal respiratory effort Auscultation: clear to auscultation bilaterally Cardio Rate: regular rate Rhythm: regular rhythm Heart sounds: S1 normal heart sound present and S2 normal heart sound present GI Palpation (GI): Soft to palpation Skin General skin exam: no rashes or lesions noted Extrem General: Yes no clubbing, cyanosis or edema Assessment & Plan Assessment & Plan (1) Emphysema of lung: Code(s): J43.9 - Emphysema, unspecified Qualifiers: Emphysema type: centrilobular Qualified Code(s): J43.2 - Centrilobular emphysema (2) Chronic restrictive lung disease: Code(s): J98.4 - Other disorders of lung (3) MULUGETA (obstructive sleep apnea): Code(s): G47.33 - Obstructive sleep apnea (adult) (pediatric) Plan Home PSG start Breo JCARLOS as needed F/U 3 months Orders: Orders RT home sleep study 02/25/23 G47.33 - Obstructive sleep apnea (adult) (pediatric) Medications: New levalbuterol HCl 1.25 mg (3 mL) inhalation BID 30 days 180 mL 11RF J44.9 - Chronic obstructive pulmonary disease, unspecified fluticasone furoate-vilanterol 200-25 mcg/dose (Breo Ellipta) 1 inh inhalation DAILY 30 days 60 ea 11RF J45.909 - Unspecified asthma, uncomplicated Coding Level of Care Code Est Pt Level 4 (40703) Diagnoses Centrilobular emphysema J43.2 Emphysema type: centrilobular Chronic restrictive lung disease J98.4 MULUGETA (obstructive sleep apnea) G47.33 Time Spent (min) 16
== END 2023-02-25 10:19 | disposition home or self-care (01) ==
PROVIDERS: PCP Internal Medicine; Visit Provider Hospitalist
DX: J43.2 Centrilobular emphysema (principal); J98.4 Other disorders of lung; G47.33 Obstructive sleep apnea (adult) (pediatric)
CPT/HCPCS: 99214

== ENCOUNTER → 2023-02-25 09:55 | Outpatient (BNVA) | payer OTHER, SELFPAY | PROVIDERS: PCP Internal Medicine; Visit Provider Hospitalist | DX: J43.2 Centrilobular emphysema (principal); J98.4 Other disorders of lung; G47.33 Obstructive sleep apnea (adult) (pediatric) | CPT/HCPCS: 99212 ==

== ENCOUNTER 2023-03-09 09:22 | Outpatient (REF) | payer OTHER, SELFPAY ==
--- NOTE | ~2023-03-09 | MM_ITS ---
EXAMINATION: BONE DENSITOMETRY CLINICAL INDICATION: Unspecified menopausal and perimenopausal disorder. COMPARISON: Previous BD dated 09/30/2020 and baseline BD dated 09/08/2018. TECHNIQUE: Using a Mediaspectrum DXA System (software version: 13.1) manufactured by [employer], dual-energy x-ray absorptiometry was performed of the lumbar spine and right forearm radius 33%. The images are of good technical quality. Summary results are attached. FINDINGS: AP SPINE L1-L3 (excluding L4): The data of L1-L4 has been changed to exclude the L4 vertebral body, because degenerative sclerosis at this level may cause overestimation of lumbar spine density. Current: BMD 0.949 g/cm2, Z-score -0.2, T-score -1.8, osteopenia, 1.4% increase from previous, 0.3% increase from baseline (<5% change is not significant). Prior: BMD 0.936 g/cm2. Baseline: BMD 0.946 g/cm2. LEFT FEMUR, NECK: Current: BMD 0.763 g/cm2, Z-score -0.3, T-score -2.0, osteopenia. Prior: BMD 0.797 g/cm2. Baseline: BMD 0.799 g/cm2. LEFT FEMUR, TOTAL: Current: BMD 0.851 g/cm2, Z-score 0.2, T-score -1.2, osteopenia, 2.3% decrease from previous, 4.8% decrease from baseline (<5% change is not significant). Prior: BMD 0.871 g/cm2. Baseline: BMD 0.894 g/cm2. IDENTIFIED RISK FACTORS: Rheumatoid arthritis. Height loss. Secondary osteoporosis (chronic liver disease, early menopause). Hysterectomy. Bilateral oophorectomy. HISTORY OF FRACTURE: None listed. MEDICATIONS: Calcium supplement and/or multivitamin. Vitamin D. MM/XR DEXA axial skeleton IMPRESSION: 1. DIAGNOSIS: Osteopenia based on the lowest T-score value of -2.0 in the femoral neck applying World Health Organization criteria. 2. 10-YEAR FRACTURE RISK PREDICTION, FRAX: Major osteoporotic fracture (clinical spine, forearm, hip or shoulder) 8.4%. Hip fracture 1.7%. 3. Treatment Recommendations: NOF guidelines recommend consideration for treatment in postmenopausal women and men age 50 and older presenting with the following: -A hip or vertebral (clinical or morphometric) fracture. -T-score less than or equal to -2.5 at the femoral neck or spine after appropriate evaluation to exclude secondary causes. -Low bone mass at the hip or spine and a 10-year fracture probability by FRAX of greater than or equal to 3% for hip fracture or greater than or equal to 20% for major osteoporotic fracture based on the [place] adapted WHO algorithm. 4. Other Recommendations: All treatment decisions require clinical judgment and consideration of individual patient factors, including patient preferences, comorbidities, previous drug use, risk factors not captured in the FRAX model (e.g. frailty, falls, vitamin D deficiency, increased bone turnover, interval significant decline in bone density) and possible under or overestimation of fracture risk by FRAX. Additional medical evaluation for secondary cause of low bone mineral density may be appropriate. FUTURE SCAN RECOMMENDATION: People with diagnosed cases of osteoporosis or at high risk for fracture should have regular bone mineral density tests. For patients eligible for Medicare, routine testing is allowed once every 2 years. The testing frequency can be increased to one year for patients who have rapidly progressing disease, those who are receiving or discontinuing medical therapy to restore bone mass, or have additional risk factors.
== END 2023-03-09 09:23 | disposition home or self-care (01) ==
LOC: HO.MAMMO 09:22
PROVIDERS: PCP Internal Medicine; Visit Provider Internal Medicine
DX: Z12.31 Encounter for screening mammogram for malignant neoplasm of breast (principal); Z13.820 Encounter for screening for osteoporosis; Z78.0 Asymptomatic menopausal state
CPT/HCPCS: 77063; 77067; 77080

== ENCOUNTER → 2023-03-09 10:30 | Outpatient (BNV) | payer OTHER, SELFPAY | PROVIDERS: PCP Internal Medicine; Visit Provider Radiology Diagnostic Radiology | DX: Z12.31 Encounter for screening mammogram for malignant neoplasm of breast (principal) | CPT/HCPCS: 77063; 77067 ==

== ENCOUNTER → 2023-04-11 10:39 | Outpatient (REF) | payer OTHER, SELFPAY | LOC: HO.SL 10:39 | PROVIDERS: PCP Internal Medicine; Visit Provider Hospitalist | DX: G47.33 Obstructive sleep apnea (adult) (pediatric) (principal) | CPT/HCPCS: 95806 ==

== ENCOUNTER → 2023-04-11 10:56 | Outpatient (BNV) | payer OTHER, SELFPAY | PROVIDERS: PCP Internal Medicine; Visit Provider Internal Medicine | DX: R06.83 Snoring (principal) | CPT/HCPCS: 95806 ==

== ENCOUNTER 2023-05-11 09:45 | Outpatient (AMB) | payer OTHER, SELFPAY ==
--- NOTE | 2023-05-11 09:47 | MHC.OFFVIS ---
Intake Vital Signs 05/11/23 09:50 Height 5 ft Weight 154 lb 5.177 oz BMI 30.1 BP 125/73 Blood Pressure Location Lt brachial Position Sitting Pulse 83 Intake Visit Reasons: s/p colonoscopy Intake Note: Laura returns to in office follow up s/p colonoscopy. CC: Patient c/o lower abdominal pain, RUQ abdominal pain from where the liver is . and dizziness. She also states that she is having trouble urinating, and feels like when someone has a low hemoglobin very tired. Periodicals Library Assistant Required: Yes Accompanied by: Self / Same As Patient Allergies naproxen Allergy (Intermediate, Verified 05/11/23 09:54) abdominal pain ibuprofen [From Motrin] Adverse Reaction (Mild, Verified 05/11/23 09:54) stomach pain HPI s/p colonoscopy HPI Details Assessment & Plan (1) Cirrhosis: Code(s): K74.60 - Unspecified cirrhosis of liver Plan: [place] #Martine LIve She will need a repeat MRI 6 mos after 08/2022 for indefinite liver lesions. She was having pain in the left abd that radiates to the back, the senna was not moving her bowels well so we progressed her to bisacodyl. She is still having a lot of bloating, and if I take the pills at night, I will go all day. This is with taking 2 pills qhs. I suggest that she try taking just 1 pill. She tried this and had less BM She still has pain in her back that is very strong and is weakening her legs. She was seen in the ER for this since our last visit but she was c/o total body aches. HOwever, she has DISH of the thoracic spine that is the likely source of this. She admits that even when she moves her bowels it does not effect her pain. She was referred to PT but they declined to treat her thinking it would only increase her pain. She may benefit from a referral to Pain mgmt. BUT she says she sees [facility] already. She says the ER doctor told me surgery may help, but given her age and the widespread manifestation of this in the thoracic spine this may be a questionable recommendation. She has not been helped with injections, they just made the pain worse. I think it is quite clear that her pain is from radiating/radicular back pain. She may benefit from a rheumatology referral, but we do not have one here - she says she can get to [facility]. I refer her to [facility] and give her the phone # ROV 6 weeks to keli richardson for bloating She tells me as a doorknob c/o that her last scope was in 2002 in [place], and she has a family history of CRC in her sister!! She has not had one since then. I will get this ordered. She has COPD and is seen by here and will need to be cleared, no cardiac problems. There are no prior problems with anesthesia or sedation. NO ID problems.. Again her sister has colorectal cancer. Return office visit in 6 weeks to evaluate the change in her medications. (2) Constipation: Code(s): K59.00 - Constipation, unspecified (3) DISH (disseminated idiopathic skeletal hyperostosis): Comment: of thoracic spine via xr FINDINGS: No acute fracture or subluxation is identified. There is bony bridging seen about the anterior longitudinal ligament and right lateral aspect of T4 through T11 with left lateral bridging T9 through T11. Pedicles intact. No destructive bony lesions identified. Disc spaces are generally maintained. XR/XR thoracic spine 2V IMPRESSION: No acute fracture or subluxation of the thoracic spine identified. Multilevel bony bridging consistent with DISH. Dictated By: Ehsan Briggs MD Signed By: <Electronically signed by Ehsan Briggs MD in OV> 08/12/22 Code(s): M48.10 - Ankylosing hyperostosis [Forestier], site unspecified (4) Family history of colon cancer: Comment: sister of crc Code(s): Z80.0 - Family history of malignant neoplasm of digestive organs (5) Pre-op examination: Code(s): Z01.818 - Encounter for other preprocedural examination Orders: Orders Colonoscopy - GI U se Only 11/03/22 Z80.0 - Family his tory of malignant neoplasm of digest donald organs, Z01.81 8 - Encounter for other preprocedura l examination Referrals Rheumatology Refer ral M48.10 - Ankylosin g hyperostosis [Fo restier], site uns pecified Medications: New peg 3350-electroly fanny 236-22.74-6.74 -5.86 gram (Golyt maria) until feca l effluent is otis r; do not exceed a total volume of 2 ,000 mL 240 mL PO Q10M 4,0 00 mL 0RF 1 day Z12.11 - Encounter for screening for malignant neoplas m of colon simethicone aft er meals 180 mg PO QID 120 caps 6RF 30 days COLONOSCOPY 01/12/23 Findings: Terminal Ileum-normal Severe melanosis coli Cecum: z shaped flat polyp about 10-12 mm lifted with eleview and then removed with cold snare with 2 clips applied for hemostasis Ascending Colon: normal Transverse Colon - 10 mm sessile polyp removed with cold snare Descending Colon: 12-14 mm sessile polyp removed with cold snare and x 2clips applied for hemostasis Sigmoid Colon: normal Rectum: Retroflexion with medium internal hemorrhoids, grade I Anorectum - normal Impression and Post Procedure Diagnosis: polyps internal hemorrhoids melanosis coli Plan: High fiber diet leaflet Avoid straining at stool, epsom salts and sitz bath, anusol supps or cream Repeat Colonoscopy in 2-3 years or earlier if clinically indicated BIOPSY Received: 01/12/23 Diagnosis A. Cecum, polypectomy: Fragments of tubular adenoma; negative for high-grade dysplasia or carcinoma. B. Colon, transverse, polypectomy: Hyperplastic mucosal polyp. C. Colon, descending, polypectomy: Fragments of tubular adenoma; negative for high-grade dysplasia or carcinoma. COMMENT: Background melanosis is present in parts A and B. TODAY'S VISIT [place] #Seb Farias The procedure needs to be repeated in 2-3 years due to the finding of a large tubular adenoma. The procedure was well tolerated. The results were explained and the patient is agreeable to the follow-up interval as stated. The bowel pattern has returned to normal. Education was provided to tell any 1st degree relatives about their findings to be sure that they are screened by age 45. Educated that they will be put on a recall list when it is time for their repeat scope but should they move out of state or away from the hospital they will need to remember along with their primary to repeat the procedure in a timely fashion to avoid any adverse complications. She asks about the melanosis coli and I explain that this is a common finding with colon prep. I explain that this is more likely from the prep combination and not form her chronic use for CIC. She continues on bisacodyl and simethicone to control her constipation and bloating. She continues to complain about weakness and pain in her legs and pain in the thoracic back that radiates to the abdomen. I explain that this is from her rather severe back disease. She is also complaining of jaw pain that sounds like TMJ as she can not open her mouth wide and she has popping and cracking. Apparently she spoke with her dentist who said she needed to see a doctor. Her PCP ordered xrays of the jaw taht were unremarkable, but she may need an MRI. I recommend she speak with Pain Management about a possible MRI or further work up. She is also seeing the [facility] in [place] where I referred her and they will see what they may be able to do She asks about her liver and tells me Dr. Evans said you have to do this. Apparently she is due for a repeat MRI of the liver. I will check in to this. I WILL GET THE REPEAT MRI ORDERED for her liver nodularity is and at her next office visit we will update her labs although her transaminases bilirubin etc. have all been entirely normal. ROV 6 mos. PFSH Medical History (Updated 05/11/23 @ 10:35 by ROSALES Lofton) Blurry vision Abnormal chest x-ray Pre-op examination Emphysema of lung Thoracic back pain Physical exam Muscle spasm Back pain Chronic restrictive lung disease Temporomandibular joint (TMJ) pain Anemia Osteopenia Postmenopausal Obese Chronic pain syndrome Hypovitaminosis D Depression with anxiety Surgical History (Updated 05/11/23 @ 09:50 by Josesito Watkins [facility]) H/O colonoscopy S/P FARRAH-BSO (total abdominal hysterectomy and bilateral salpingo-oophorectomy) Family History (Updated 01/24/23 @ 10:06 by Zoe Dillard MD) Father No problems noted. Mother Emphysema lung Sister Colon cancer Social History Housing: Apartment Alcohol intake: never Patient Tobacco Use Status: Former Tobacco user Quit Date: 7 YRS AGO Tobacco use type: Cigarette e-Cigarette/Vaping Use: Never Used Second Hand Smoke Exposure: No Advance Directives Date on File: 01/12/22 service: No Current occupational status: unemployed Cognitive needs: Yes Hearing needs: No Vision needs: No Review of Systems Const Denies fatigue, Denies fever(s), Denies night sweats, Denies poor appetite and Denies weight loss ENT Details: Jaw pain with clicking and popping Reports Normal hearing present, Denies dental pain, Denies dysphagia, Reports facial pain, Denies hearing loss, Denies mouth pain, Reports neck pain, Denies odynophagia, Denies throat swelling, Denies tongue swelling and Reports other (Dentition adequate) Card Reports no additional complaints Resp Reports no additional complaints GI Details: Denies abdominal pain, Denies melena, Denies bloating, Denies hematochezia, Denies constipation, Denies GI cramping, Denies dysphagia, Denies excessive flatus, Denies early satiety, Denies heartburn, Denies diarrhea, Denies nausea, Denies odynophagia, Denies vomiting and Denies hematemesis Musc Reports abnormal gait, Reports back pain, Reports muscle weakness, Reports neck pain and Reports radiating pain into limb Skin/Breast Denies pruritus, Denies lesions, Denies rash and Denies jaundice Neuro Reports Normal hearing present, Denies Abnormal speech present and Reports abnormal gait Endo Denies fatigue Aller/Immun Denies throat swelling and Denies tongue swelling Physical Exam Vital Signs: Last Vital Signs Pulse 83 05/11/23 09:50 BP 125/73 05/11/23 09:50 BMI result Body Mass Index 30.1 Const General: cooperative, no acute distress, well developed and well groomed Nutritional Appearance: well nourished and obese Orientation/consciousness: oriented to person, oriented to place and oriented to time Limitations: language barrier HEENT Head: Yes normocephalic and Yes atraumatic Eyes General: appearance normal, both eyes and all related structures Pupils: Equal, round and reactive pupils present Neck Neck: Yes normal visual inspection and Yes no lymphadenopathy Thyroid: Thyroid normal Resp Effort & Inspection: normal respiratory effort and able to speak in complete sentences Auscultation: clear to auscultation bilaterally Cardio Rate: regular rate Rhythm: regular rhythm Heart sounds: Normal, physiologic split S2 sound present Peripheral pulses: radial pulses present and posterior tibial pulses present GI Inspection: No distended, No Abdominal panniculus present and Yes obesity Palpation (GI): Soft to palpation, nontender, no guarding, not rigid and No hepatosplenomegaly present Percussion: Yes normal to percussion Auscultation: normal bowel sounds Rectal Exam - Female: deferred Skin General skin exam: no rashes or lesions noted, turgor normal, skin not dry, no jaundice, No spider nevi and no striae Rashes: no rashes Nails: normal Neuro General: oriented to person, oriented to place and oriented to time Cranial nerves: Yes Equal, round and reactive pupils present and Yes Normal hearing present Speech: No Abnormal speech present Extrem General: Yes normal to inspection, No clubbing, No cyanosis and No edema Psych Appearance: grossly normal and well kempt Mental Status: mental status grossly normal Speech and movement: Normal speech and movement present Affect: normal affect Attitude: cooperative Thought process: Normal thought process present and not confabulating Thought content: Normal thought content present Insight: Limited insight present (Psych) and Poor insight present (Psych) Judgement: Limited judgement present (Psych) and Poor judgement present (Psych) Results Reviewed Results Reviewed: Laboratory Tests 01/25/23 09:44 Total Bilirubin 0.5 AST 23 ALT 13 Alkaline Phosphatase 111 Laboratory Tests 11/23/17 08/02/22 12:21 12:59 ZOE Screen Negative Anti-Mitochondrial Ab NEGATIVE Anti-Smooth Muscle Ab <20 Assessment & Plan Assessment & Plan (1) Tubular adenoma of colon: Comment: 2022 SCOPE= 2 TA IS REPEAT IN 5 YEARS Code(s): D12.6 - Benign neoplasm of colon, unspecified (2) Constipation: Code(s): K59.00 - Constipation, unspecified (3) Family history of colon cancer: Comment: sister of crc Code(s): Z80.0 - Family history of malignant neoplasm of digestive organs (4) DISH (disseminated idiopathic skeletal hyperostosis): Comment: of thoracic spine via xr FINDINGS: No acute fracture or subluxation is identified. There is bony bridging seen about the anterior longitudinal ligament and right lateral aspect of T4 through T11 with left lateral bridging T9 through T11. Pedicles intact. No destructive bony lesions identified. Disc spaces are generally maintained. XR/XR thoracic spine 2V IMPRESSION: No acute fracture or subluxation of the thoracic spine identified. Multilevel bony bridging consistent with DISH. Dictated By: Ehsan Briggs MD Signed By: <Electronically signed by Ehsan Briggs MD in OV> 08/12/22 Code(s): M48.10 - Ankylosing hyperostosis [Forestier], site unspecified (5) Cirrhosis: Comment: BASELINE LABS 07/23/22 Plt Count 405 H Estimated GFR 11/23/17 ZOE Screen Negative Hepatitis A IgM Ab NONREACTIVE Hep Bs Antigen NEGATIVE Hep Bs Antibody REACTIVE Hep B Core Total A b REACTIVE Hepatitis C Ab (EI A) NONREACTIVE 11/23/17 ZOE Screen Negative Anti-Mitochondrial Ab NEGATIVE Anti-Smooth Muscle Ab <20 CURRENT LABS 01/25/23 09:44 Total Bilirubin 0.5 AST 23 ALT 13 Alkaline Phosphatase 111 MRI OF THE ABDOMEN LIVER PROTOCOL IMPRESSION: Limited examination secondary to motion. Focal arterially hyperenhancing observation in the posterior right hepatic lobe, no associated washout or pseudocapsule, no clear correlate on precontrast images. Nonspecific could be perfusional in etiology. Recommend a short-term follow up abdominal MRI with and without IV contrast in 3 months. Dictated By: Desiree Mora Signed By: <Electronically signed by Desiree Mora in OV> 08/24/22 Code(s): K74.60 - Unspecified cirrhosis of liver Qualifiers: Ascites presence: unspecified Hepatic cirrhosis type: unspecified hepatic cirrhosis Qualified Code(s): K74.60 - Unspecified cirrhosis of liver (6) Nodule on liver: Code(s): K76.89 - Other specified diseases of liver Plan [place] #Tachira Live The procedure needs to be repeated in 2-3 years due to the finding of a large tubular adenoma. The procedure was well tolerated. The results were explained and the patient is agreeable to the follow-up interval as stated. The bowel pattern has returned to normal. Education was provided to tell any 1st degree relatives about their findings to be sure that they are screened by age 45. Educated that they will be put on a recall list when it is time for their repeat scope but should they move out of state or away from the hospital they will need to remember along with their primary to repeat the procedure in a timely fashion to avoid any adverse complications. She asks about the melanosis coli and I explain that this is a common finding with colon prep. I explain that this is more likely from the prep combination and not form her chronic use for CIC. She continues on bisacodyl and simethicone to control her constipation and bloating. She continues to complain about weakness and pain in her legs and pain in the thoracic back that radiates to the abdomen. I explain that this is from her rather severe back disease. She is also complaining of jaw pain that sounds like TMJ as she can not open her mouth wide and she has popping and cracking. Apparently she spoke with her dentist who said she needed to see a doctor. Her PCP ordered xrays of the jaw taht were unremarkable, but she may need an MRI. I recommend she speak with Pain Management about a possible MRI or further work up. She is also seeing the [facility] in [place] where I referred her and they will see what they may be able to do She asks about her liver and tells me Dr. Evans said you have to do this. Apparently she is due for a repeat MRI of the liver. I will check in to this. I WILL GET THE REPEAT MRI ORDERED for her liver nodularity is and at her next office visit we will update her labs although her transaminases bilirubin etc. have all been entirely normal. ROV 6 mos. Orders: Orders MR abdomen wo/w con Today K74.60 - Unspecified cirrhosis of liver, K76.89 - Other specified diseases of liver Coding Level of Care Code Est Pt Level 4 (97956) Diagnoses Tubular adenoma of colon D12.6 Constipation K59.00 Family history of colon cancer Z80.0 DISH (disseminated idiopathic skeletal hyperostosis) M48.10 Hepatic cirrhosis, unspecified hepatic cirrhosis type, unspecified whether ascites present K74.60 Ascites presence: unspecified Hepatic cirrhosis type: unspecified hepatic cirrhosis Nodule on liver K76.89 Time Spent (min) 38
[2023-05-11 09:50] VITALS: BP 125/73; PULSE 83; BMI 30.1
== END 2023-05-11 10:23 | disposition home or self-care (01) ==
PROVIDERS: PCP Internal Medicine; Visit Provider Nurse Practitioner
DX: D12.6 Benign neoplasm of colon, unspecified (principal); K59.00 Constipation, unspecified; Z80.0 Family history of malignant neoplasm of digestive organs; M48.10 Ankylosing hyperostosis [Forestier], site unspecified; K74.60 Unspecified cirrhosis of liver; K76.89 Other specified diseases of liver
CPT/HCPCS: 99214

== ENCOUNTER → 2023-05-11 09:45 | Outpatient (BNVA) | payer OTHER, SELFPAY | PROVIDERS: PCP Internal Medicine; Visit Provider Nurse Practitioner | DX: D12.6 Benign neoplasm of colon, unspecified (principal); K59.00 Constipation, unspecified; K74.60 Unspecified cirrhosis of liver; K76.89 Other specified diseases of liver; M48.10 Ankylosing hyperostosis [Forestier], site unspecified; Z80.0 Family history of malignant neoplasm of digestive organs | CPT/HCPCS: 99212 ==

== ENCOUNTER 2023-06-08 09:56 | Outpatient (REF) | payer OTHER, SELFPAY ==
--- NOTE | ~2023-06-08 | MR_ITS ---
EXAMINATION: MR ABDOMEN WITHOUT AND WITH CONTRAST CLINICAL INFORMATION: Cirrhosis. COMPARISON: 08/24/2022 TECHNIQUE: MR abdomen was performed without and with use of 7 mL intravenous Gadavist gadolinium contrast. Postcontrast images are performed in multiphase dynamic sequences. Imaging was performed in 3 planes. FINDINGS: Motion artifact technically degrades image quality. LUNG BASES: No pleural or pericardial effusion. LIVER, GALLBLADDER, AND BILIARY TREE: Mild hepatic steatosis. Nodular surface contour. The previously demonstrated area of ill-defined hyperenhancement measuring 2.5 cm in the posterior right hepatic lobe is not conspicuous on the current study. Instead there is a 6 mm focus of hyperenhancement within the posterior right hepatic lobe on image 33 of series 101. No washout characteristics. No correlate on precontrast images. No biliary ductal dilatation. The gallbladder is unremarkable. PANCREAS: No ductal dilatation. SPLEEN: Not enlarged. ADRENAL GLANDS: No adrenal mass. KIDNEYS AND URETERS: The kidneys are symmetric in size and enhancement. No hydronephrosis. No perinephric stranding. GASTROINTESTINAL TRACT: No abnormal bowel dilatation to suspect obstruction. No significant ascites. LYMPH NODES: No bulky lymphadenopathy. VASCULAR: Normal caliber of the abdominal aorta. The main portal vein is patent. MR/MR abdomen wo/w con IMPRESSION: Limited study secondary to motion artifact. 6 mm observation in the posterior right hepatic lobe with no associated washout or pseudocapsule, no clear correlate on precontrast images. Recommend a short-term follow up abdominal MRI in 3 months.
[2023-06-08] MEDS: gadobutroL 7.5 ML VIAL IVPUSH (10:42)
== END 2023-06-08 09:57 | disposition home or self-care (01) ==
LOC: HO.MRI 09:56
PROVIDERS: PCP Internal Medicine; Visit Provider Nurse Practitioner
DX: K74.60 Unspecified cirrhosis of liver (principal); K76.89 Other specified diseases of liver
CPT/HCPCS: 74183; A9585

== ENCOUNTER 2023-06-20 09:11 | Outpatient (AMB) | payer OTHER, SELFPAY ==
[2023-06-20 09:31] VITALS: PULSE 85; O2SAT 98; BMI 29.3
--- NOTE | 2023-06-20 09:31 | MHC.OFFVIS ---
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 There was a question of pulmonary emboli she ended up undergoing for CTA. The CTA demonstrated apparently some emphysema. Although, I could not find the actual report. Clinically, however the patient has been doing well denies any significant shortness of breath denies any significant coughing. She was a smoker but she quit many years ago. On further questioning she states that her mother also of emphysema although she was not a nonsmoker. She also had another sibling that develop significant emphysema as well. Therefore we did do a full 1 antitrypsin deficiency. Testing today. Should patient will also need PFTs. Clinically patient is doing well she that she does not need any inhaler therapy at this time. Her major complaint is really TMJ. She is having some discomfort on the right TMJ area. Her still open up her mouth to clench her teeth and touch the area. I did print her out some exercises for that. If the patient is no better she should follow-up with her primary care doctor regarding that issue. 12/06/2022 the patient is here for a pulmonary follow-up visit. She still complains of dyspnea on exertion. Sometimes she feels that she cannot take a deep breath in. The patient did have pulmonary function studies that I personally reviewed with her. 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 Also decreased diffusing capacity. Will go ahead and request a chest x-ray. If the x-ray is abnormal she is going to need additional testing such as a CT scan. She has all sorts of elements. The patient also complains of difficulty moving her right hand because numbness of her thumb area and pain as well. She has a hard time holding on to a cough because of the discomfort. She has been having this for now for several weeks. The patient is scheduled to see a fueler and early next year. In the meantime I do believe that because of the limitations will be reasonable for her to see orthopedic surgery for the right hand specially since his is limiting her ability to perform her activities of daily living. 02/25/2023 the patient is here for pulmonary follow-up visit. The patient is complaining of worsening shortness breath specially at nighttime. She states that sometimes is pretty significant. Has a hard time sleeping because of it. Sometimes she wakes up from a sound sleep. Moderate severity. She was given levo albuterol solution for the nebulizer and this does help her. She also has a rescue inhaler. The patient did have PFTs back in October and at that point she did have a significant reversible obstruction consistent with asthma. Therefore, placed on a maintenance inhaler Breo 200. She can uses once a day and she should rinse her mouth. I did teach how to use it. The patient also is having issues at nighttime when she wakes up with shortness of breath. Indeed she does have daytime drowsiness with an elevated [place] score of 11/24. In view of her ongoing symptoms doing a home sleep study will be also important to rule out underlying sleep apnea. I did review her chest x-ray that she had in the fall 2022 demonstrating some minimal atelectasis. Otherwise no active lung disease appreciated. 06/20/2023 the patient is here for pulmonary follow-up visit. Overall the patient has been doing well. She continues have daytime drowsiness. Her [place] score still elevated 9/24. She did have sleep study that was very reassuring. No evidence of any sleep apnea and no evidence of any hypoxia. The patient has been concerned about lower extremity edema. She does have some liver cirrhosis. Liver functions are normal. I did reassure her. Her breathing is okay. She does continue to use the Breo daily. The patient is also complaining of episodic chest discomfort. She describes like a pressure sensation in the substernal area. [id number] severity. Right now she does not have it. She has not seen Cardiology. I did request she get an EKG at this time start taking a baby aspirin. Will have her referred to Cardiology so she can be evaluated from a cardiac standpoint. The patient also should use her rescue inhaler she feels that sensation. [facility] Medical History (Updated 06/20/23 @ 20:49 by Bear Rodriguez MD) Chest pain Blurry vision Abnormal chest x-ray Pre-op examination Emphysema of lung Thoracic back pain Physical exam Muscle spasm Back pain Chronic restrictive lung disease Temporomandibular joint (TMJ) pain Anemia Osteopenia Postmenopausal Obese Chronic pain syndrome Hypovitaminosis D Depression with anxiety Surgical History (Updated 05/11/23 @ 09:50 by Josesito Watkins [facility]) H/O colonoscopy S/P FARRAH-BSO (total abdominal hysterectomy and bilateral salpingo-oophorectomy) Family History (Updated 01/24/23 @ 10:06 by Zoe Dillard MD) Father No problems noted. Mother Emphysema lung Sister Colon cancer Social History Housing: Apartment Alcohol intake: never Patient Tobacco Use Status: Former Tobacco user Quit Date: 7 YRS AGO Tobacco use type: Cigarette e-Cigarette/Vaping Use: Never Used Second Hand Smoke Exposure: No Advance Directives Date on File: 01/12/22 service: No Current occupational status: unemployed Cognitive needs: Yes Hearing needs: No Vision needs: No Review of Systems Const Denies fatigue and Denies fever(s) Eyes Denies change in vision ENT Reports mouth pain Card Denies chest pain, Reports leg edema and Denies dyspnea on exertion Resp Denies cough, Denies dyspnea on exertion and Denies wheezing GI Denies abdominal pain Musc Reports as per HPI, Reports myalgias, Reports arthralgias, Reports limited range of motion, Reports numbness, Reports stiffness and Reports tingling Skin/Breast Denies rash Neuro Reports no additional complaints, Reports numbness and Reports tingling Endo Denies fatigue Mateusz/Lymph Denies lymphadenopathy Aller/Immun Denies wheezing Physical Exam Vital Signs: Last Vital Signs Pulse 85 06/20/23 09:31 Pulse Ox 98 06/20/23 09:31 Oxygen Delivery Method Room Air 06/20/23 09:31 BMI result Body Mass Index 29.3 Const General: cooperative HEENT Head: Yes atraumatic Neck Neck: Yes supple Chest Chest palpation & inspection: normal inspection of the chest Resp Effort & Inspection: normal respiratory effort Auscultation: clear to auscultation bilaterally Cardio Rate: regular rate Rhythm: regular rhythm Heart sounds: S1 normal heart sound present and S2 normal heart sound present GI Palpation (GI): Soft to palpation Skin General skin exam: no rashes or lesions noted Extrem General: Yes no clubbing, cyanosis or edema Assessment & Plan Assessment & Plan (1) Emphysema of lung: Code(s): J43.9 - Emphysema, unspecified Category: Medical Qualifiers: Emphysema type: centrilobular Qualified Code(s): J43.2 - Centrilobular emphysema (2) Chronic restrictive lung disease: Code(s): J98.4 - Other disorders of lung Category: Medical (3) Chest pain: Code(s): R07.9 - Chest pain, unspecified Category: Medical Qualifiers: Chest pain type: unspecified Qualified Code(s): R07.9 - Chest pain, unspecified (4) MULUGETA (obstructive sleep apnea): Code(s): G47.33 - Obstructive sleep apnea (adult) (pediatric) Category: Medical Plan continue Breo JCARLOS as needed start baby ASA while starting cardiac evaluation for chest pain episodes EKG CXR Cardiology referral F/U 6 months Orders: Orders ECG 12 lead EKG Today J44.9 - Chronic obstructive pulmonary disease, unspecified, R07.9 - Chest pain, unspecified XR chest 2V Today R07.9 - Chest pain, unspecified Referrals Cardiology Referral R07.9 - Chest pain, unspecified Medications: New aspirin 81 mg PO DAILY 30 tabs 1RF 30 days Coding Level of Care Code Est Pt Level 4 (37829) Diagnoses Centrilobular emphysema J43.2 Emphysema type: centrilobular Chronic restrictive lung disease J98.4 Chest pain, unspecified type R07.9 Chest pain type: unspecified MULUGETA (obstructive sleep apnea) G47.33 Time Spent (min) 17
== END 2023-06-20 09:49 | disposition home or self-care (01) ==
PROVIDERS: PCP Internal Medicine; Visit Provider Hospitalist
DX: J43.2 Centrilobular emphysema (principal); J98.4 Other disorders of lung; R07.9 Chest pain, unspecified; G47.33 Obstructive sleep apnea (adult) (pediatric)
CPT/HCPCS: 99214

== ENCOUNTER → 2023-06-20 09:11 | Outpatient (BNVA) | payer OTHER, SELFPAY | PROVIDERS: PCP Internal Medicine; Visit Provider Hospitalist | DX: G47.33 Obstructive sleep apnea (adult) (pediatric) (principal); J43.2 Centrilobular emphysema; J98.4 Other disorders of lung; R07.9 Chest pain, unspecified | CPT/HCPCS: 99212 ==

== ENCOUNTER 2023-06-24 10:28 | Outpatient (REF) | payer OTHER, SELFPAY ==
--- NOTE | ~2023-06-24 | XR_ITS ---
EXAMINATION: XR CHEST CLINICAL INFORMATION: Chest pain unspecified. COMPARISON: 01/04/2023 TECHNIQUE: 2 views of the chest. FINDINGS: There is no gross pneumothorax. Lung volumes are low. Heart size is normal. Degenerative changes in the thoracic spine. No pleural effusion. Mild residual opacities persist in the lower left lung characteristic of mild residual atelectasis. XR/XR chest 2V IMPRESSION: Mild residual opacities persist in the lower left lung characteristic of mild residual atelectasis.
== END 2023-06-24 10:29 | disposition home or self-care (01) ==
LOC: HO.XRAY 10:28
PROVIDERS: Visit Provider Hospitalist
DX: R07.9 Chest pain, unspecified (principal)
CPT/HCPCS: 71046

== ENCOUNTER 2023-07-18 09:55 | Outpatient (AMB) | payer OTHER, SELFPAY ==
[2023-07-18 10:32] VITALS: BP 110/62; PULSE 83; BMI 29.3
--- NOTE | 2023-07-18 10:32 | A.OFFVIS_ITS ---
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 Process Development Required: Yes Project Manager Process Development Name: leroy/ daughter Accompanied by: Daughter Allergies naproxen Allergy (Intermediate, Verified 06/20/23 09:32) abdominal pain ibuprofen [From Motrin] Adverse Reaction (Mild, Verified 06/20/23 09:32) stomach pain Medication List - Last Reconciled 07/18/23 by Salbador Regan MD albuterol sulfate 90 mcg/actuation 2 inhalations inhalation Q6H PRN 30 days aspirin 81 mg PO DAILY 30 days bisacodyl (Dulcolax (bisacodyl)) 10 mg (2 x 5 mg) PO BEDTIME 30 days calcium carbonate-vitamin D3 250 mg-3.125 mcg (125 unit) (Oyster Shell Calcium- Vitamin D3) 1 tab PO BID 90 days cane quad cane clonazepam 1 mg PO BEDTIME PRN 30 days cyanocobalamin (vitamin B-12) 1,000 mcg PO DAILY diclofenac sodium 1% (Arthritis Pain (diclofenac)) 4 grams topical QID fluticasone furoate-vilanterol 200-25 mcg/dose (Breo Ellipta) 1 inh inhalation DAILY 30 days gabapentin 300 mg PO BEDTIME 30 days Grab bar As directed hydrocortisone 1% (Anti-Itch (hydrocortisone)) 1 appl topical BID PRN 30 days incontinence pad, liner, disp Use 1 pad three times a day levalbuterol HCl 1.25 mg (3 mL) inhalation BID 30 days lidocaine 5% 2 patches topical DAILY 30 days nebulizers As directed [raised toilet seat As directed] simethicone 180 mg PO QID 30 days tramadol 50 mg PO BID PRN 30 days [wipes As directed] HPI Comments Details: Pleasant 72 year female who has known history of chronic restrictive lung disease, cirrhosis, obesity and obstructive sleep apnea who is presenting for assessment of chest discomfort. Over the last few weeks she has noticed some discomfort in the chest which happens when she is laying down. She feels like tightness in her chest and also gets shortness of breath. She complain about these symptoms to and was referred to us. She has not very mobile due to leg pain which is chronic and etiology is unclear as well as lung problems. She is denying any. Exertional symptoms but as mentioned not very active. Blood pressure is well controlled. EKG reviewed and is normal. [facility] Medical History (Updated 06/20/23 @ 20:49 by Bear Rodriguez MD) Chest pain Blurry vision Abnormal chest x-ray Pre-op examination Emphysema of lung Thoracic back pain Physical exam Muscle spasm Back pain Chronic restrictive lung disease Temporomandibular joint (TMJ) pain Anemia Osteopenia Postmenopausal Obese Chronic pain syndrome Hypovitaminosis D Depression with anxiety Surgical History (Updated 05/11/23 @ 09:50 by Josesito Watkins [facility]) H/O colonoscopy S/P FARRAH-BSO (total abdominal hysterectomy and bilateral salpingo-oophorectomy) Family History (Updated 01/24/23 @ 10:06 by Zoe Dillard MD) Father No problems noted. Mother Emphysema lung Sister Colon cancer Social History Housing: Apartment Alcohol intake: never Patient Tobacco Use Status: Former Tobacco user Tobacco use type: Cigarette e-Cigarette/Vaping Use: Never Used Second Hand Smoke Exposure: No Advance Directives Date on File: 01/12/22 service: No Current occupational status: unemployed Cognitive needs: Yes Hearing needs: No Vision needs: No Review of Systems Const Denies chills, Denies fatigue, Denies fever(s), Denies frequent falls, Reports weakness, Denies weight gain and Denies weight loss ENT Denies dizziness Card Reports chest pain, Reports leg edema, Reports lightheadedness, Denies palpitations, Denies dyspnea, Denies dyspnea on exertion and Reports orthopnea Resp Denies cough, Denies dyspnea and Denies dyspnea on exertion GI Denies bloating and Denies change in bowel habits Musc Denies muscle weakness, Denies numbness and Denies tingling Neuro Denies dizziness, Denies frequent falls, Denies numbness, Denies tingling and Reports weakness Endo Denies fatigue and Denies palpitations Physical Exam Vital Signs: Last Vital Signs Pulse 83 07/18/23 10:32 BP 110/62 07/18/23 10:32 BMI result Body Mass Index 29.3 GENERAL APPEARANCE: in no acute distress, pleasant. NECK: no carotid bruit, no jugular venous distention. SKIN: no suspicious lesions, warm and dry. HEART: no murmurs, regular rate and rhythm. LUNGS: clear to auscultation bilaterally. ABDOMEN: soft, nontender. EXTREMITIES: no edema. PERIPHERAL PULSES: equal. NEUROLOGIC: No gross deficits, AAO X 3 Office Procedures EKG Details: Sinus rhythm 83 beats per minute, normal axis, normal ECG, QTC 430 milliseconds. [id number], Complete Assessment & Plan Assessment & Plan (1) Chest pain: Code(s): R07.9 - Chest pain, unspecified Category: Medical Qualifiers: Chest pain type: unspecified Qualified Code(s): R07.9 - Chest pain, unspecified Plan Pleasant 72 year female who is here for assessment of chest pain. She has chest pain laying down which is rarely due to coronary disease. Other possibilities are acid reflux and asthma. Given her age and risk factors for coronary disease, I have decided to arrange a modified Cali protocol stress Mibi. If she is unable to exercise then we will change her to Lexiscan. Check echo to rule out any structural heart issues. She will see us back in few months Thank you for allowing me to participate in the care of your patient. Please feel free to contact me if you have any questions. Orders: Orders NM cardiolite stress test Today R07.9 - Chest pain, unspecified CA echo transthoracic complete Today R07.9 - Chest pain, unspecified Coding Level of Care Code New Pt Level 4 (20898) Diagnoses Chest pain, unspecified type R07.9 Chest pain type: unspecified CPT Codes EKG - CPT: 57279-[id number], Complete ([id number])
== END 2023-07-18 11:04 | disposition home or self-care (01) ==
PROVIDERS: PCP Internal Medicine; Visit Provider Internal Medicine Cardiovascular Disease
DX: R07.9 Chest pain, unspecified (principal)
CPT/HCPCS: 93010; 99213

== ENCOUNTER → 2023-07-18 09:55 | Outpatient (BNVA) | payer OTHER, SELFPAY | PROVIDERS: PCP Internal Medicine; Visit Provider Internal Medicine Cardiovascular Disease | DX: R07.9 Chest pain, unspecified (principal) | CPT/HCPCS: 93005; 99212 ==

== ENCOUNTER 2023-07-27 09:48 | Outpatient (AMB) | payer OTHER, SELFPAY ==
[2023-07-27 09:57] VITALS: BP 130/80; BMI 29.3
--- NOTE | 2023-07-27 09:57 | A.OFFPC_ITS ---
Vital Signs 07/27/23 09:57 Height 5 ft Weight 150 lb BMI 29.3 BP 130/80 Blood Pressure Location Lt brachial Position Sitting Intake Visit Reasons: asthma,anxiety Intake Note: Patient here for a follow up asthma, anxiety, leg pains Account Maintenance Representative Required: No Accompanied by: Self / Same As Patient Allergies naproxen Allergy (Intermediate, Verified 07/27/23 10:13) abdominal pain ibuprofen [From Motrin] Adverse Reaction (Mild, Verified 07/27/23 10:13) stomach pain Medication List - Last Reconciled 07/27/23 by Zoe Dillard MD albuterol sulfate 90 mcg/actuation 2 inhalations inhalation Q6H PRN 30 days aspirin 81 mg PO DAILY 30 days bisacodyl (Dulcolax (bisacodyl)) 10 mg (2 x 5 mg) PO BEDTIME 30 days calcium carbonate-vitamin D3 250 mg-3.125 mcg (125 unit) (Oyster Shell Calcium- Vitamin D3) 1 tab PO BID 90 days cane quad cane clonazepam 1 mg PO BEDTIME PRN 30 days cyanocobalamin (vitamin B-12) 1,000 mcg PO DAILY diclofenac sodium 1% (Arthritis Pain (diclofenac)) 4 grams topical QID fluticasone furoate-vilanterol 200-25 mcg/dose (Breo Ellipta) 1 inh inhalation DAILY 30 days gabapentin 300 mg PO BEDTIME 30 days Grab bar As directed hydrocortisone 1% (Anti-Itch (hydrocortisone)) 1 appl topical BID PRN 30 days incontinence pad, liner, disp Use 1 pad three times a day levalbuterol HCl 1.25 mg (3 mL) inhalation BID 30 days lidocaine 5% 2 patches topical DAILY 30 days nebulizers As directed [raised toilet seat As directed] simethicone 180 mg PO QID 30 days tramadol 50 mg PO BID PRN 30 days [wipes As directed] Tobacco use date assessed: 07/27/23 Fall risk assessment: No Falls in past year Last assessed Fall Risk: 07/27/23 Dental Screening Dental Screen Date: 07/27/23 Did you have a dental visit in the last 12 months?: Yes Did you have a dental problem in the last 6 months where you did not have access to dental care?: No Was dental information given to patient?: Patient has dentist HPI HPI Comments History of Present Illness Details This is a 72-year-old female with emphysema, cirrhosis, sacroiliitis and depression with anxiety that comes today complaining of low back pain associated with bilateral leg weakness that has been present for months. She does follows with pain management but does not want to go to [facility] pain management anymore because she said that they are giving her injections the to not work and would like a 2nd opinion. Emphysema is follow by pulmonology and has been well controlled with inhalers. Cirrhosis is follow by Gastroenterology. She has very mild depression and does not want to use any medication for it. Anxiety stable with benzodiazepines. Does not a psychiatrist. [facility] Medical History (Updated 07/27/23 @ 10:22 by Zoe Dillard MD) Chest pain Blurry vision Abnormal chest x-ray Pre-op examination Emphysema of lung Thoracic back pain Physical exam Muscle spasm Back pain Chronic restrictive lung disease Temporomandibular joint (TMJ) pain Anemia Osteopenia Postmenopausal Obese Chronic pain syndrome Hypovitaminosis D Depression with anxiety Surgical History H/O colonoscopy S/P FARRAH-BSO (total abdominal hysterectomy and bilateral salpingo-oophorectomy) Family History Father No problems noted. Mother Emphysema lung Sister Colon cancer Social History Housing: Apartment Alcohol intake: never Patient Tobacco Use Status: Former Tobacco user Tobacco use type: Cigarette e-Cigarette/Vaping Use: Never Used Second Hand Smoke Exposure: No Advance Directives Date on File: 01/12/22 service: No Current occupational status: unemployed Cognitive needs: Yes Hearing needs: No Vision needs: No Questionnaire PHQ-9 Over the last 2 weeks, how often have you been bothered by any of the following problems? 1. Little interest or pleasure in doing things: not at all 2. Feeling down, depressed, or hopeless: several days 3. Trouble falling or staying asleep, or sleeping too much: several days 4. Feeling tired or having little energy: several days 5. Poor appetite or overeating: several days 6. Feeling bad about yourself - or that you are a failure or have let yourself or your family down: not at all 7. Trouble concentrating on things, such as reading the newspaper or watching television: not at all 8. Moving or speaking so slowly that other people could have noticed. Or the opposite - being so fidgety or restless that you have been moving around a lot more than usual: not at all 9. Thoughts that you would be better off or of hurting yourself in some way: not at all Total score: 4 Depression Screening Interpretation: Positive Depression Screening Follow-up: Existing condition, In treatment and Follow-up Visit Requested Depression Screening Done: Yes 04189 - PHQ-9 Billing: Yes Source: Developed by Drs. Jose Carlos Remy, Meagan Oviedo, Rob Belle and colleagues, with an educational stanley from [employer]. Thrive Questionnaire Date Thrive assessed: 07/27/23 I am a: Patient What is your living situation today?: I have a steady place to live Within the past 12 months, did the food you bought not last and you didn't have the money to get more?: Never true Within the past 12 months, did you worry whether your food would run out before you got money to buy more?: Never true Do you have trouble paying for medicines?: No Do you have trouble getting transportation to medical appointments?: No Do you have trouble paying your heating and electricity bill?: No Do you have trouble taking care of your child, family member or friend?: No Do you have trouble with day-to-day activities such as bathing, preparing meals, shopping, managing finances, etc.?: No Are you currently unemployed and looking for a job?: No Are you interested in more education?: No Please select the resources that you would like help with: None Currently or been in a relationship where the following occur: no concerns reported THRIVE Score: 0 AUDIT C Alcohol Use Questionnaire (AUDIT-C) 1. How often do you have a drink containing alcohol?: Never Total Score: 0 Score Reviewed/Action Taken: No KEZIA-7 AMB Questionnaire KEZIA-7 Date KEZIA - 7 assessed: 07/27/23 Feeling nervous, anxious, or on edge: 1 = Several days Not being able to stop or control worryin = Not at all Worrying too much about different things: 0 = Not at all Trouble relaxin = Not at all Being so restless that it is hard to sit still: 0 = Not at all Becoming easily annoyed or irritable: 0 = Not at all Feeling afraid as if something awful might happen: 0 = Not at all Total KEZIA-7 score (0-4 normal; 5-9 mild; 10-14 moderate; 15-21 severe): 1 Source: Developed by Drs. Jose Carlos Remy, Meagan Oviedo, Rob Belle and colleagues, with an educational stanley from [employer]. KEZIA-7 Assessment Billing KEZIA-7 Assessment Tool: KEZIA-7 Assessment 71485 Review of Systems Const All systems reviewed & are unremarkable except as noted in HPI and below Eyes Reports no additional complaints, Denies change in vision and Denies other visual disturbances Card Denies chest pain at rest, Denies chest pain with activity, Denies edema, Denies irregular heart rhythm, Denies claudication, Denies dyspnea, Denies dyspnea on exertion, Denies orthopnea, Denies paroxysmal nocturnal dyspnea and Denies slow heart rate Resp Denies cough, Denies dyspnea and Denies dyspnea on exertion Physical exam (Primary Care) Vital Signs: Last Vital Signs BP 130/80 07/27/23 09:57 BMI result Body Mass Index 29.3 Tobacco/Smoking Status: Tobacco use Status Tobacco use date assessed 07/27/23 07/27/23 10:01 Patient Tobacco Use Status Former Tobacco user 07/27/23 10:01 Tobacco use type Cigarette 07/27/23 10:01 e-Cigarette/Vaping Use Never Used 07/27/23 10:01 PHQ-9: PHQ-9 Score PHQ-9: Total score 4 07/27/23 10:16 Depression Screening Interpretation: Positive Depression Screening Follow-up: Existing condition, In treatment and Follow-up Visit Requested Thrive Assessment: Date of Thrive Assessment Date Thrive assessed 07/27/23 07/27/23 10:01 Currently or been in a relationship where the following occur: no concerns reported Resp Effort & Inspection: normal respiratory effort Auscultation: clear to auscultation bilaterally Cardio Jugular venous distension: no JVD Rate: regular rate Rhythm: regular rhythm Heart sounds: S1 normal heart sound present and S2 normal heart sound present Extrem General: Yes full ROM Assessment and Plan Assessment & Plan (1) Sacroiliitis: Code(s): M46.1 - Sacroiliitis, not elsewhere classified Plan: Referred to [facility] for 2nd opinion. (2) Depression with anxiety: Code(s): F41.8 - Other specified anxiety disorders Plan: Patient declines the need for depression medication. Continue benzodiazepines as needed. (3) Centrilobular emphysema: Code(s): J43.2 - Centrilobular emphysema Plan: Continue long-acting inhaler. Use rescue inhaler as needed. Follow-up with pulmonology. (4) Cirrhosis: Comment: BASELINE LABS 07/23/22 Plt Count 405 H Estimated GFR 11/23/17 ZOE Screen Negative Hepatitis A IgM Ab NONREACTIVE Hep Bs Antigen NEGATIVE Hep Bs Antibody REACTIVE Hep B Core Total A b REACTIVE Hepatitis C Ab (EI A) NONREACTIVE 11/23/17 ZOE Screen Negative Anti-Mitochondrial Ab NEGATIVE Anti-Smooth Muscle Ab <20 CURRENT LABS 01/25/23 09:44 Total Bilirubin 0.5 AST 23 ALT 13 Alkaline Phosphatase 111 MRI OF THE ABDOMEN LIVER PROTOCOL IMPRESSION: Limited examination secondary to motion. Focal arterially hyperenhancing observation in the posterior right hepatic lobe, no associated washout or pseudocapsule, no clear correlate on precontrast images. Nonspecific could be perfusional in etiology. Recommend a short-term follow up abdominal MRI with and without IV contrast in 3 months. Dictated By: Desiree Mora Signed By: <Electronically signed by Desiree Mora in OV> 08/24/22 Code(s): K74.60 - Unspecified cirrhosis of liver Qualifiers: Hepatic cirrhosis type: unspecified hepatic cirrhosis Ascites presence: unspecified Qualified Code(s): K74.60 - Unspecified cirrhosis of liver Plan: Follow-up with Gastroenterology. Orders: Referrals Pain Management Referral M54.50 - Low back pain, unspecified Medications: New tramadol 50 mg PO BEDTIME 30 days 30 tabs 0RF cetirizine (All Day Allergy (cetirizine)) 10 mg PO DAILY 90 days PRN 90 tabs 1RF allergy symptoms Discontinued tramadol Discontinued Reason: Patient Completed Course 50 mg PO BID 30 days PRN 60 tabs 0RF pain Coding Level of Care Code Est Pt Level 4 (90318) Complex EM visit Add On G2211 Diagnoses Sacroiliitis M46.1 Depression with anxiety F41.8 Centrilobular emphysema J43.2 Hepatic cirrhosis, unspecified hepatic cirrhosis type, unspecified whether ascites present K74.60 Hepatic cirrhosis type: unspecified hepatic cirrhosis Ascites presence: unspecified Additional Codes KEZIA-7 Assessment Billing - KEZIA-7 Assessment Tool: KEZIA-7 Assessment 83877 ([id number]) Time Spent (min) 23
== END 2023-07-27 10:22 | disposition home or self-care (01) ==
PROVIDERS: PCP Internal Medicine; Visit Provider Internal Medicine
DX: M46.1 Sacroiliitis, not elsewhere classified (principal); J43.2 Centrilobular emphysema; K74.60 Unspecified cirrhosis of liver; F41.8 Other specified anxiety disorders
CPT/HCPCS: 99214; G2211

== ENCOUNTER → 2023-08-30 08:10 | Outpatient (REF) | payer OTHER, SELFPAY ==
--- NOTE | ~2023-08-30 | NM_ITS ---
Myocardial perfusion study Indication: Chest pain to evaluate for ischemia Technique: The patient was brought in for a Lexiscan perfusion study on 08/30/2023. Patient performed low-level exercise and was injected 0.4 mg of Lexiscan intravenously. Within a minute of injection, 25 mCi of sestamibi was given intravenously. Images were obtained using the SPECT gamma camera interlaced with the gating device. Images were obtained in supine position. Resting perfusion study was performed on 09/06/2023. Patient was administered 25 mCi of sestamibi intravenously at rest. Images were then obtained in supine position. Images obtained with and without CT attenuation. Total DLP 90 mGy-cm. Images were processed with the software and compared side to side in short axis, horizontal long axis and vertical long axis views. Findings: The stress perfusion study showed mildly reduced uptake in the lateral as well as distal lateral and basal inferior wall of the LV myocardium. Attenuated corrected images show mildly to moderately reduced uptake in the distal anterior and apical wall of the LV myocardium. The gated study shows normal LV systolic function with calculated LVEF of 67%. LV cavity is normal in size. The gated study shows normal systolic wall thickening and contraction of segments. Resting study shows non attenuated images improved uptake in the inferolateral, distal lateral as well as the basal inferior wall of the LV myocardium. Attenuation corrected images also showed improved uptake in the distal anterior and apical wall of the LV myocardium.. Gating at rest reveals normal systolic wall motion with ejection fraction at greater than 70%. The findings are consistent with reversible defect of the inferolateral as well as distal lateral and basal inferior wall suggestive of ischemia.. NM/FL cardiolite stress test Impression: 1. Myocardial perfusion imaging study shows inferolateral distal lateral as well as basal inferior ischemia 2. Gated LVEF is 67% 3. Transient ischemic dilatation not present EKG is nondiagnostic for ischemia
--- NOTE | 2023-08-30 08:14 | CA_ITS ---
Transthoracic Echocardiogram Patient (Last, First, Middle): Laura Wang, Gender: Female Date of : 1950 Age: 72 Procedure Date: 08/30/2023 Procedure Type: Transthoracic Echocardiogram Location: OP Height: 152.4 cm Weight: 68.04 kg BSA: 1.65 m2 Heart Rate: 74 bpm BP: 115 / 65 mmHg Ambulatory Care Coordinator: KIRK Gaming MD: Salbador Regan MD Rn Clinical Review: Salbador Regan MD Symptoms: R07.9 - Chest pain, unspecified Study Quality: Adequate ECG Rhythm: Sinus Conclusions: - Normal left ventricular size, thickness, systolic function, and wall motion. The visually estimated ejection fraction is between 55-60%. Diastolic function is normal for age. Normal GLS -18%. - Normal right ventricular cavity size and systolic function. Findings Left Ventricle Normal left ventricular size, thickness, systolic function, and wall motion. The visually estimated ejection fraction is between 55-60%. Diastolic function is normal for age. Right Ventricle Normal right ventricular cavity size and systolic function. Atria The left atrium is normal in size. Aortic Valve There is a normal trileaflet aortic valve. There is no aortic valve stenosis. There is no aortic valve regurgitation. Mitral Valve The mitral valve appears normal. There is trace mitral valve regurgitation. There is no mitral valve stenosis. Pulmonic Valve The pulmonic valve is likely normal. Tricuspid Valve Normal tricuspid valve structure. There is trace tricuspid valve regurgitation. Normal right atrial pressure. There is no evidence of pulmonary hypertension. Great Vessels All visible segments of the aorta are normal in size. The visualized portions of the pulmonary artery and branches are normal. Venous The inferior vena cava is normal in size and collapses greater than 50% with inspiration. Pericardium/Pleural There is no evidence of pericardial effusion. Measurements 2D Linear Measurements IVSd: 0.90 0.6-0.9/0.6-1.0 cm LVIDd: 4.16 3.9-5.3/4.2-5.9 cm LVIDd Index: 2.52 2.4-3.2/2.2-3.1 cm/m2 LVIDs: 2.76 2.0-3.6 cm LVPWd: 0.81 0.7-1.1 cm LA Diam: 3.30 2.7-3.8/3.0-4.0 cm LAIDs Index: 2.00 1.5-2.3 cm/m2 LV Mass: 135.16 67-162/88-224 g LV Mass Index: 81.91 43-95/49-115 g/m2 LVOT Diam: 2.00 3.0+(-)1.3 cm 2D Systolic Function EF 4C: 58.30 >55% EF 2C: 56.30 >55% EF BiP: 56.90 >55% Mitral Valve MV Pk E: 0.72 MV PK A: 1.00 MV Decel Time: 157.00 E/A: 0.70 E'Lateral: 10.70 E'Medial: 5.87 E/E' Med: 12.30 E/E' Lat: 6.70 PHT: 46.00 MVA PHT: 4.78 Decel [place]: 4.59 Aortic Valve AoV Pk Franck: 1.25 AoV Mn Franck: 0.84 AoV VTI: 0.26 AoV Pk Grad: 6.00 Aov Mn Grad: 3.00 RUKHSANA Cont.VTI: 1.94 LVOT LVOT Pk Franck: 0.74 LVOT Mn Franck: 0.52 LVOT VTI: 0.16 LVOT Pk Grad: 2.00 LVOT Mn Grad: 1.00 LVOT Diam: 2.00 LVOT Area: 3.14 Diastolic Function MV Pk E: 0.72 MV Pk A: 1.00 E/A: 0.70 E'Medial: 5.87 E/E' Med: 12.30 E' Laterial: 10.70 E/E' Lat: 6.70 Right Ventricle TAPSE (mm): 13.80 TVS' Franck: 7.62 Tricuspid Valve TR Pk Franck: 2.13 TR Pk Grad: 18.00 RA Press: 3.00 RVSP: 21.00 Great Vessels Aorta Sinus of Valsalva: 2.70 2.0-3.5 cm Ao Asc: 3.00 2.1-3.4 cm Pulmonary Valve PV Pk Franck: 0.69 Peak PV Grad: 2.00 Updated in Other Vendor System with Status of Final Salbador Regan MD electronically signed on 08/30/2023 5:22:49 PM with status of Final
--- NOTE | 2023-08-30 08:26 | CA_ITS ---
Acquisition Time: 2023-08-30 08:54:52 Total Exercise Time: 00:00:04 Test Indications: Dyspnea SOB Medications: SEE H Protocol: MOD TANJA Max HR: 101 BPM 67% of Pred: 150 BPM Max BP: 122/074 mmHG Max Work Load: 1.0 METS Exercise stress test exercise 4 sec of Mod Tanja protocol and stopped due to safety achieivng 60% MPHR. Test changed to Lexiscan. Pharmaoclogical stress test with Lexiscan injection while sitting and kicking her legs, without anginal symptoms, without arrhythmias, with normotensive response to injection, with nondiagnoisitic EKGs. Nuclear images pending. Test reviewed with Dr. Pedersen Referred By: Salbador Regan Overread By: Kathy Ronquillo
== END ==
LOC: HO.CARD 08:10
PROVIDERS: PCP Internal Medicine; Visit Provider Internal Medicine Cardiovascular Disease
DX: R07.9 Chest pain, unspecified (principal); J43.2 Centrilobular emphysema; K74.60 Unspecified cirrhosis of liver; M46.1 Sacroiliitis, not elsewhere classified
CPT/HCPCS: 78452; 93017; 93306; 93356; A9500; J0280; J2785

== ENCOUNTER → 2023-08-30 08:26 | Outpatient (BNV) | payer OTHER, SELFPAY | PROVIDERS: PCP Internal Medicine; Visit Provider Nurse Practitioner | DX: R07.9 Chest pain, unspecified (principal) | CPT/HCPCS: 78452; 93016; 93018; 93350; 93356 ==

== ENCOUNTER 2023-12-15 09:15 | Outpatient (AMB) | payer OTHER, SELFPAY ==
--- NOTE | 2023-12-15 09:19 | MHC.OFFVIS ---
Vital Signs 12/15/23 09:20 Height 5 ft Weight 152 lb 1.903 oz BMI 29.7 BP 119/70 Blood Pressure Location Lt brachial Position Sitting Pulse 93 Intake Visit Reasons: 6 month follow up Intake Note: Laura presents in the office as a 6 month follow up. CC: Patient c/o RUQ abdominal pain, lower abdominal pain, and lower back pain. She also reports some constipation and nausea sometimes. Efrent also states that she her hand's skin is opening. Closing Coordinator Required: Yes Allergies naproxen Allergy (Intermediate, Verified 12/15/23 09:27) abdominal pain ibuprofen [From Motrin] Adverse Reaction (Mild, Verified 12/15/23 09:27) stomach pain HPI HPI 6 month follow up: Details: Assessment & Plan (1) Tubular adenoma of colon: Comment: 2022 SCOPE= 2 TA IS REPEAT IN 5 YEARS Code(s): D12.6 - Benign neoplasm of colon, unspecified (2) Constipation: Code(s): K59.00 - Constipation, unspecified (3) Family history of colon cancer: Comment: sister of crc Code(s): Z80.0 - Family history of malignant neoplasm of digestive organs (4) DISH (disseminated idiopathic skeletal hyperostosis): Comment: of thoracic spine via xr FINDINGS: No acute fracture or subluxation is identified. There is bony bridging seen about the anterior longitudinal ligament and right lateral aspect of T4 through T11 with left lateral bridging T9 through T11. Pedicles intact. No destructive bony lesions identified. Disc spaces are generally maintained. XR/XR thoracic spine 2V IMPRESSION: No acute fracture or subluxation of the thoracic spine identified. Multilevel bony bridging consistent with DISH. Dictated By: Ehsan Briggs MD Signed By: <Electronically signed by Ehsan Briggs MD in [place]> 08/12/22 Code(s): M48.10 - Ankylosing hyperostosis [[place]], site unspecified (5) Cirrhosis: Comment: BASELINE LABS 07/23/22 Plt Count 405 H Estimated GFR 11/23/17 ZOE Screen Negative Hepatitis A IgM Ab NONREACTIVE Hep Bs Antigen NEGATIVE Hep Bs Antibody REACTIVE Hep B Core Total A b REACTIVE Hepatitis C Ab (EI A) NONREACTIVE 11/23/17 ZOE Screen Negative Anti-Mitochondrial Ab NEGATIVE Anti-Smooth Muscle Ab <20 CURRENT LABS 01/25/23 09:44 Total Bilirubin 0.5 AST 23 ALT 13 Alkaline Phosphatase 111 MRI OF THE ABDOMEN LIVER PROTOCOL IMPRESSION: Limited examination secondary to motion. Focal arterially hyperenhancing observation in the posterior right hepatic lobe, no associated washout or pseudocapsule, no clear correlate on precontrast images. Nonspecific could be perfusional in etiology. Recommend a short-term follow up abdominal MRI with and without IV contrast in 3 months. Dictated By: Desiree Mora Signed By: <Electronically signed by Desiree Mora in [place]> 08/24/22 Code(s): K74.60 - Unspecified cirrhosis of liver Qualifiers: Ascites presence: unspecified Hepatic cirrhosis type: unspecified hepatic cirrhosis Qualified Code(s): K74.60 - Unspecified cirrhosis of liver (6) Nodule on liver: Code(s): K76.89 - Other specified diseases of liver Plan [place] [facility] The procedure needs to be repeated in 2-3 years due to the finding of a large tubular adenoma. The procedure was well tolerated. The results were explained and the patient is agreeable to the follow-up interval as stated. The bowel pattern has returned to normal. Education was provided to tell any 1st degree relatives about their findings to be sure that they are screened by age 45. Educated that they will be put on a recall list when it is time for their repeat scope but should they move out of state or away from the hospital they will need to remember along with their primary to repeat the procedure in a timely fashion to avoid any adverse complications. She asks about the melanosis coli and I explain that this is a common finding with colon prep. I explain that this is more likely from the prep combination and not form her chronic use for CIC. She continues on bisacodyl and simethicone to control her constipation and bloating. She continues to complain about weakness and pain in her legs and pain in the thoracic back that radiates to the abdomen. I explain that this is from her rather severe back disease. She is also complaining of jaw pain that sounds like TMJ as she can not open her mouth wide and she has popping and cracking. Apparently she spoke with her dentist who said she needed to see a doctor. Her PCP ordered xrays of the jaw that were unremarkable, but she may need an MRI. I recommend she speak with Pain Management about a possible MRI or further work up. She is also seeing the [facility] in [place] where I referred her and they will see what they may be able to do She asks about her liver and tells me Dr. Evans said you have to do this. Apparently she is due for a repeat MRI of the liver. I will check in to this. I WILL GET THE REPEAT MRI ORDERED for her liver nodularity is and at her next office visit we will update her labs although her transaminases bilirubin etc. have all been entirely normal. ROV 6 mos. Orders: Orders MR abdomen wo/w con Today K74.60 - Unspecified cirrhosis of liver, K76.89 - Other specified diseases of liver MRI of the abdomen 06/17/23 FINDINGS: Motion artifact technically degrades image quality. LUNG BASES: No pleural or pericardial effusion. LIVER, GALLBLADDER, AND BILIARY TREE: Mild hepatic steatosis. Nodular surface contour. The previously demonstrated area of ill-defined hyperenhancement measuring 2.5 cm in the posterior right hepatic lobe is not conspicuous on the current study. Instead there is a 6 mm focus of hyperenhancement within the posterior right hepatic lobe on image 33 of series 101. No washout characteristics. No correlate on precontrast images. No biliary ductal dilatation. The gallbladder is unremarkable. PANCREAS: No ductal dilatation. SPLEEN: Not enlarged. ADRENAL GLANDS: No adrenal mass. KIDNEYS AND URETERS: The kidneys are symmetric in size and enhancement. No hydronephrosis. No perinephric stranding. GASTROINTESTINAL TRACT: No abnormal bowel dilatation to suspect obstruction. No significant ascites. LYMPH NODES: No bulky lymphadenopathy. VASCULAR: Normal caliber of the abdominal aorta. The main portal vein is patent. MR/MR abdomen wo/w con IMPRESSION: Limited study secondary to motion artifact. 6 mm observation in the posterior right hepatic lobe with no associated washout or pseudocapsule, no clear correlate on precontrast images. Recommend a short-term follow up abdominal MRI in 3 months. TODAY'S VISIT [place] [facility] She continues on bisacodyl and simethicone to control her constipation and bloating. She continues to suffer quite a lot of pain. she is discussing possible spinal stim she c/o cracking and bleeding on her fingertips and dry patches on her elbows - this leads me to question if she has psoriatic oa - referring to dermatology and if psoriasis this could impact her arthritis tx. Given her radiologic evidence of DISH syndrome and inflammatory arthritis could be a distinct possibility. She is also c/o HABEMATOLEL. Referring to Speech and hearing ROV 3 mos. Agreeable to repeat MRI [facility] Medical History Chest pain Blurry vision Abnormal chest x-ray Pre-op examination Emphysema of lung Thoracic back pain Physical exam Muscle spasm Back pain Chronic restrictive lung disease Temporomandibular joint (TMJ) pain Anemia Osteopenia Postmenopausal Obese Chronic pain syndrome Hypovitaminosis D Depression with anxiety Surgical History H/O colonoscopy S/P FARRAH-BSO (total abdominal hysterectomy and bilateral salpingo-oophorectomy) Family History Father No problems noted. Mother Emphysema lung Sister Colon cancer Social History Housing: Apartment Alcohol intake: never Patient Tobacco Use Status: Former Tobacco user Tobacco use type: Cigarette e-Cigarette/Vaping Use: Never Used Second Hand Smoke Exposure: No Advance Directives Date on File: 01/12/22 service: No Current occupational status: unemployed Cognitive needs: Yes Hearing needs: No Vision needs: No Review of Systems Const Denies fatigue, Denies fever(s), Denies night sweats, Denies poor appetite and Denies weight loss ENT Reports Normal hearing present, Denies dental pain, Denies dysphagia, Reports hearing loss, Denies mouth pain, Reports neck pain, Denies odynophagia, Denies throat swelling, Denies tongue swelling and Reports other (Dentition adequate) Card Reports no additional complaints Resp Reports no additional complaints GI Details: Denies abdominal pain, Denies melena, Reports bloating, Denies hematochezia, Denies constipation, Reports GI cramping, Denies dysphagia, Denies excessive flatus, Denies early satiety, Denies heartburn, Denies diarrhea, Denies nausea, Denies odynophagia, Denies vomiting and Denies hematemesis Musc Reports back pain, Reports myalgias, Reports arthralgias, Reports joint swelling, Reports neck pain, Reports radiating pain into limb and Reports stiffness Skin/Breast Reports dry skin, Denies pruritus, Reports lesions, Denies rash and Denies jaundice Neuro Reports Normal hearing present and Denies Abnormal speech present Endo Denies fatigue Aller/Immun Denies throat swelling and Denies tongue swelling Physical Exam Vital Signs: Last Vital Signs Pulse 93 12/15/23 09:20 BP 119/70 12/15/23 09:20 BMI result Body Mass Index 29.7 Const General: cooperative, no acute distress, well developed and well groomed Nutritional Appearance: well nourished and overweight Orientation/consciousness: oriented to person, oriented to place and oriented to time Limitations: language barrier HEENT Head: Yes normocephalic and Yes atraumatic Eyes General: appearance normal, both eyes and all related structures Pupils: Equal, round and reactive pupils present Neck Neck: Yes normal visual inspection and Yes no lymphadenopathy Thyroid: Thyroid normal Resp Effort & Inspection: normal respiratory effort and able to speak in complete sentences Auscultation: clear to auscultation bilaterally Cardio Rate: regular rate Rhythm: regular rhythm Heart sounds: Normal, physiologic split S2 sound present Peripheral pulses: radial pulses present and posterior tibial pulses present GI Inspection: No distended, No Abdominal panniculus present and Yes obesity Palpation (GI): Soft to palpation, nontender, no guarding, not rigid and No hepatosplenomegaly present Percussion: Yes normal to percussion Auscultation: normal bowel sounds Rectal Exam - Female: deferred Skin Other: Dry weight and patches of skin on the elbows General skin exam: dry skin, no jaundice, lichenification, No spider nevi, no striae and other (Dry flaking skin that easily opens to bleed on multiple fingertips) Rashes: no rashes Nails: normal Neuro General: oriented to person, oriented to place and oriented to time Cranial nerves: Yes Equal, round and reactive pupils present and Yes Normal hearing present Speech: No Abnormal speech present Extrem Other: Fingertip lesions as stated under skin General: No clubbing, No cyanosis and No edema Psych Appearance: grossly normal and well kempt Mental Status: mental status grossly normal Speech and movement: Normal speech and movement present Affect: normal affect Attitude: cooperative Thought process: Circumstantial thought process present and not confabulating Thought content: Normal thought content present Insight: Limited insight present (Psych) Judgement: Limited judgement present (Psych) Assessment & Plan Assessment & Plan (1) Nodule on liver: Code(s): K76.89 - Other specified diseases of liver Category: Medical (2) Psoriasis and similar disorder: Comment: ? psoriatic patches on elbows and fingertips Code(s): L40.9 - Psoriasis, unspecified Category: Medical (3) HABEMATOLEL (hard of hearing): Code(s): H91.90 - Unspecified hearing loss, unspecified ear Category: Medical Plan [place] [facility] She continues on bisacodyl and simethicone to control her constipation and bloating. She continues to suffer quite a lot of pain. she is discussing possible spinal stim she c/o cracking and bleeding on her fingertips and dry patches on her elbows - this leads me to question if she has psoriatic oa - referring to dermatology and if psoriasis this could impact her arthritis tx. Given her radiologic evidence of DISH syndrome and inflammatory arthritis could be a distinct possibility. She is also c/o HABEMATOLEL. Referring to Speech and hearing ROV 3 mos. Agreeable to repeat MRI Orders: Orders MR abdomen wo con Today K76.89 - Other specified diseases of liver Referrals Dermatology Referral L40.9 - Psoriasis, unspecified Speech and Hearing Referral H91.90 - Unspecified hearing loss, unspecified ear Medications: Refilled simethicone after meals 180 mg PO QID 120 caps 6RF 30 days bisacodyl (Dulcolax (bisacodyl)) 10 mg (2 x 5 mg) PO BEDTIME 60 tabs 6RF 30 days K59.00 - Constipation, unspecified Coding Level of Care Code Est Pt Level 3 (37119) Complex EM visit Add On G2211 Diagnoses Nodule on liver K76.89 Psoriasis and similar disorder L40.9 HABEMATOLEL (hard of hearing) H91.90
[2023-12-15 09:20] VITALS: BP 119/70; PULSE 93; BMI 29.7
== END 2023-12-15 10:16 | disposition home or self-care (01) ==
LOC: HO.HGI 09:16
PROVIDERS: PCP Internal Medicine; Visit Provider Nurse Practitioner
DX: K76.89 Other specified diseases of liver (principal); L40.9 Psoriasis, unspecified; H91.90 Unspecified hearing loss, unspecified ear
CPT/HCPCS: 99213; G2211

== ENCOUNTER → 2023-12-15 09:15 | Outpatient (BNVA) | payer OTHER, SELFPAY | PROVIDERS: PCP Internal Medicine; Visit Provider Nurse Practitioner | DX: K76.89 Other specified diseases of liver (principal); L40.9 Psoriasis, unspecified; H91.90 Unspecified hearing loss, unspecified ear | CPT/HCPCS: 99212 ==

== ENCOUNTER 2023-12-26 09:13 | Outpatient (AMB) | payer OTHER, SELFPAY ==
[2023-12-26 09:19] VITALS: BP 110/68; PULSE 90; O2SAT 95; BMI 30.6
--- NOTE | 2023-12-26 09:19 | A.OFFVIS_ITS ---
Vital Signs 12/26/23 09:19 Height 5 ft Weight 156 lb 8.451 oz BMI 30.6 BP 110/68 Blood Pressure Location Lt brachial Position Sitting Pulse 90 Pulse Source Pulse Oximeter Pulse Oximetry (%) 95 Oxygen Delivery Method Room Air Intake Visit Reasons: Obstructive sleep apnea Circular Knife Machine Cutter: Circular Knife Machine Cutter offered & declined Accompanied by: Self / Same As Patient Allergies naproxen Allergy (Intermediate, Verified 12/26/23 09:22) abdominal pain ibuprofen [From Motrin] Adverse Reaction (Mild, Verified 12/26/23 09:22) stomach pain HPI Comments Details: The patient is a 73-year-old woman who apparently was in usual state health until back in beginning of the year she was evaluated at an outside hospital. There was a question of pulmonary emboli she ended up undergoing for CTA. The CTA demonstrated apparently some emphysema. Although, I could not find the actual report. Clinically, however the patient has been doing well denies any significant shortness of breath denies any significant coughing. She was a smoker but she quit many years ago. On further questioning she states that her mother also of emphysema although she was not a nonsmoker. She also had another sibling that develop significant emphysema as well. Therefore we did do a full 1 antitrypsin deficiency. Testing today. Should patient will also need PFTs. Clinically patient is doing well she that she does not need any inhaler therapy at this time. Her major complaint is really TMJ. She is having some discomfort on the right TMJ area. Her still open up her mouth to clench her teeth and touch the area. I did print her out some exercises for that. If the patient is no better she should follow-up with her primary care doctor regarding that issue. 12/06/2022 the patient is here for a pulmonary follow-up visit. She still complains of dyspnea on exertion. Sometimes she feels that she cannot take a deep breath in. The patient did have pulmonary function studies that I personally reviewed with her. 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 Also decreased diffusing capacity. Will go ahead and request a chest x-ray. If the x-ray is abnormal she is going to need additional testing such as a CT scan. She has all sorts of elements. The patient also c omplains of difficulty moving her right hand because numbness of her thumb area and pain as well. She has a hard time holding on to a cough because of the discomfort. She has been having this for now for several weeks. The patient is scheduled to see a quantitative consultant and early next year. In the meantime I do believe that because of the limitations will be reasonable for her to see orthopedic surgery for the right hand specially since his is limiting her ability to perform her activities of daily living. 02/25/2023 the patient is here for pulmonary follow-up visit. The patient is complaining of worsening shortness breath specially at nighttime. She states that sometimes is pretty significant. Has a hard time sleeping because of it. Sometimes she wakes up from a sound sleep. Moderate severity. She was given levo albuterol solution for the nebulizer and this does help her. She also has a rescue inhaler. The patient did have PFTs back in October and at that point she did have a significant reversible obstruction consistent with asthma. Therefore, placed on a maintenance inhaler Breo 200. She can uses once a day and she should rinse her mouth. I did teach how to use it. The patient also is having issues at nighttime when she wakes up with shortness of breath. Indeed she does have daytime drowsiness with an elevated [place] score of 11/24. In view of her ongoing symptoms doing a home sleep study will be also important to rule out underlying sleep apnea. I did review her chest x-ray that she had in the fall 2022 demonstrating some minimal atelectasis. Otherwise no active lung disease appreciated. 06/20/2023 the patient is here for pulmonary follow-up visit. Overall the patient has been doing well. She continues have daytime drowsiness. Her [place] score still elevated 9/24. She did have sleep study that was very reassuring. No evidence of any sleep apnea and no evidence of any hypoxia. The patient has been concerned about lower extremity edema. She does have some liver cirrhosis. Liver functions are normal. I did reassure her. Her breathing is okay. She does continue to use the Breo daily. The patient is also complaining of episodic chest discomfort. She describes like a pressure sensation in the substernal area. [id number] severity. Right now she does not have it. She has not seen Cardiology. I did request she get an EKG at this time start taking a baby aspirin. Will have her referred to Cardiology so she can be evaluated from a cardiac standpoint. The patient also should use her rescue inhaler she feels that sensation. 12/26/2023 the patient is here for a pulmonary follow-up visit. Overall the patient has been still complaining of similar symptoms. Can not daytime drowsiness fatigue. Her [place] score is elevated 01/07. She did have a sleep study although was not helpful because she had a hard time with the study and she felt like the cannula was coming her nose. In view of her significant daytime drowsiness and her comorbidities will go ahead and request an in-lab sleep study this time. She has been evaluated from a cardiac standpoint. She did have a CTA of the coronary arteries demonstrating some mild CAD. She will follow-up with cardiology soon. In the meantime she continues have significant musculoskeletal discomfort. Could be fibromyalgia could be some arthritis. She found to have some lesion fingers in the question of psoriasis did come up. At this point the patient needs to be seen by Rheumatology as she may have likely a more systemic manifestation of a inflammatory musculoskeletal disease. In the meantime for respiratory symptoms will try Daliresp to try to help her decrease inflammation of the airways her chronic bronchitis and also indeed may have some affect with inflammatory disease since it is a PD4 inhibitor. [facility] Medical History Chest pain Blurry vision Abnormal chest x-ray Pre-op examination Emphysema of lung Thoracic back pain Physical exam Muscle spasm Back pain Chronic restrictive lung disease Temporomandibular joint (TMJ) pain Anemia Osteopenia Postmenopausal Obese Chronic pain syndrome Hypovitaminosis D Depression with anxiety Surgical History H/O colonoscopy S/P FARRAH-BSO (total abdominal hysterectomy and bilateral salpingo-oophorectomy) Family History Father No problems noted. Mother Emphysema lung Sister Colon cancer Social History Housing: Apartment Alcohol intake: never Patient Tobacco Use Status: Former Tobacco user Tobacco use type: Cigarette e-Cigarette/Vaping Use: Never Used Second Hand Smoke Exposure: No Advance Directives Date on File: 01/12/22 service: No Current occupational status: unemployed Cognitive needs: Yes Hearing needs: No Vision needs: No Review of Systems Const Denies fatigue and Denies fever(s) Eyes Denies change in vision ENT Reports mouth pain Card Denies chest pain, Reports leg edema and Denies dyspnea on exertion Resp Denies cough, Denies dyspnea on exertion and Denies wheezing GI Denies abdominal pain Musc Reports as per HPI, Reports myalgias, Reports arthralgias, Reports limited range of motion, Reports numbness, Reports stiffness and Reports tingling Skin/Breast Denies rash Neuro Reports no additional complaints, Reports numbness and Reports tingling Endo Denies fatigue Mateusz/Lymph Denies lymphadenopathy Aller/Immun Denies wheezing Physical Exam Vital Signs: Last Vital Signs Pulse 90 12/26/23 09:19 BP 110/68 12/26/23 09:19 Pulse Ox 95 12/26/23 09:19 Oxygen Delivery Method Room Air 12/26/23 09:19 BMI result Body Mass Index 30.6 Const General: cooperative HEENT Head: Yes atraumatic Neck Neck: Yes supple Chest Chest palpation & inspection: normal inspection of the chest Resp Effort & Inspection: normal respiratory effort Auscultation: clear to auscultation bilaterally Cardio Rate: regular rate Rhythm: regular rhythm Heart sounds: S1 normal heart sound present and S2 normal heart sound present GI Palpation (GI): Soft to palpation Skin General skin exam: no rashes or lesions noted Extrem General: Yes no clubbing, cyanosis or edema Assessment & Plan Assessment & Plan (1) Emphysema of lung: Code(s): J43.9 - Emphysema, unspecified Category: Medical Qualifiers: Emphysema type: centrilobular Qualified Code(s): J43.2 - Centrilobular emphysema (2) Chronic restrictive lung disease: Code(s): J98.4 - Other disorders of lung Category: Medical (3) Chest pain: Code(s): R07.9 - Chest pain, unspecified Category: Medical Qualifiers: Chest pain type: unspecified Qualified Code(s): R07.9 - Chest pain, unspecified (4) MULUGETA (obstructive sleep apnea): Code(s): G47.33 - Obstructive sleep apnea (adult) (pediatric) Category: Medical (5) Psoriasis and similar disorder: Comment: ? psoriatic patches on elbows and fingertips Code(s): L40.9 - Psoriasis, unspecified Category: Medical Plan continue Breo JCARLOS as needed start DAliresp 500mcg daily in lab PSG Rheumatology referral ?FM versus psoriasis F/U 3-4 months Orders: Orders RT PSG in-lab sleep study Today G47.33 - Obstructive sleep apnea (adult) (pediatric) Referrals Rheumatology Referral L40.9 - Psoriasis, unspecified Medications: New roflumilast (Daliresp) 500 mcg PO DAILY 30 days 30 tabs 5RF roflumilast (Daliresp) 500 mcg PO DAILY 30 tabs 5RF 30 days Refilled lidocaine 5% 2 patches topical DAILY 30 ea 3RF pain 30 days M47.816 - Spondylosis without myelopathy or radiculopathy, lumbar region, M51.36 - Other intervertebral disc degeneration, lumbar region, M79.604 - Pain in right leg, M79.605 - Pain in left leg Coding Level of Care Code Est Pt Level 4 (87117) Complex EM visit Add On G2211 Diagnoses Centrilobular emphysema J43.2 Emphysema type: centrilobular Chronic restrictive lung disease J98.4 Chest pain, unspecified type R07.9 Chest pain type: unspecified MULUGETA (obstructive sleep apnea) G47.33 Psoriasis and similar disorder L40.9 Time Spent (min) 17
== END 2023-12-26 09:41 | disposition home or self-care (01) ==
PROVIDERS: PCP Internal Medicine; Visit Provider Hospitalist
DX: J43.2 Centrilobular emphysema (principal); J98.4 Other disorders of lung; R07.9 Chest pain, unspecified; G47.33 Obstructive sleep apnea (adult) (pediatric); L40.9 Psoriasis, unspecified
CPT/HCPCS: 99214; G2211

== ENCOUNTER → 2023-12-26 09:13 | Outpatient (BNVA) | payer OTHER, SELFPAY | PROVIDERS: PCP Internal Medicine; Visit Provider Hospitalist | DX: J43.2 Centrilobular emphysema (principal); J98.4 Other disorders of lung; R07.9 Chest pain, unspecified; G47.33 Obstructive sleep apnea (adult) (pediatric); L40.9 Psoriasis, unspecified | CPT/HCPCS: 99212 ==

== ENCOUNTER 2024-02-22 09:23 | Outpatient (REF) | payer OTHER, SELFPAY ==
--- NOTE | ~2024-02-22 | MR_ITS ---
EXAMINATION: MRI Abdomen without and with contrast HISTORY: K76.89 - Other specified diseases of liver COMPARISON: Comparison is made with the prior examination dated 06/08/2023. TECHNIQUE: Axial in and out of phase T1-weighted gradient echo, axial diffusion weighted, and axial and coronal haste T2 with fat saturation images were obtained through the abdomen. 3D MRCP Reconstructed images and thick slab imaging of the biliary tree were obtained. Subsequently, fat suppressed axial and coronal T1-weighted images were obtained after the intravenous administration of 7 mL Gadavist. FINDINGS: There is mild motion artifact. There is no significant loss of signal intensity on opposed phase imaging to suggest steatosis. There is minimal surface nodularity compatible with the history of cirrhosis. There is no intra or extrahepatic biliary ductal dilatation. There is mildly heterogeneous enhancement particularly in the right lobe. However, no discrete mass is identified. There is no restricted diffusion. The gallbladder, spleen, pancreas, adrenals, and kidneys are unremarkable. No retroperitoneal lymphadenopathy or ascites is identified in the upper abdomen. MR/MR abdomen wo/w con IMPRESSION: Minimal surface nodularity compatible with history of cirrhosis. Mild degenerative heterogeneous enhancement without evidence of a discrete mass. Electronically signed by: Jose Carlos Bai MD 02/24/2024 07:24 AM [facility]
[2024-02-22] MEDS: gadobutroL 7.5 ML VIAL IVPUSH (11:00)
== END 2024-02-22 09:24 | disposition home or self-care (01) ==
LOC: HO.MRI 09:23
PROVIDERS: Visit Provider Nurse Practitioner
DX: K76.89 Other specified diseases of liver (principal)
CPT/HCPCS: 74183; A9585

== ENCOUNTER → 2024-02-22 09:25 | Outpatient (BNV) | payer OTHER, SELFPAY | PROVIDERS: Visit Provider Radiology Diagnostic Radiology | DX: K76.89 Other specified diseases of liver (principal) | CPT/HCPCS: 74183 ==

== ENCOUNTER 2024-04-10 08:59 | Outpatient (AMB) | payer OTHER, SELFPAY ==
--- OUTSIDE RECORDS SUMMARY | 2024-04-10 09:44 | XMS_ITS ---
Author Name Nia Holley NP Address [address] [place] [address] Phone [phone] [facility] Care Team Providers Care Infrastructure Administrator Name Role Phone Nia Holley Unavailable [phone] Unavailable Unavailable Unavailable SUSAN IBARRA Unavailable [phone] Unavailable Unavailable [phone] Unavailable Unavailable Unavailable Reason for Referral Not Available Allergies, adverse reactions, alerts Allergen Type Reaction Severity Status Onset Date NSAIDs Allergy to substance (disorder) itching but she tolerates aspirin 81 Severe Active N/A History of medication use Medication Class Instructions Start Date End Date Amoxicillin 500 mg Cap TAKE 1 CAPSULE BY MOUTH THREE TIMES DAILY UNTIL FINISHED 2021-07-16 No Data Available clonazePAM 1 mg Tab TAKE 1 TABLET BY KASEY TH AT BEDTIME NEEDED FOR ANXIETY 2021-07-16 No Data Available Hydrocortisone 1 % Crm APPLY 1 APPLICATI ON TOPICALLY 2 TIMES A DAY NEEDED FOR SKIN IRRITATION. 2021-07-16 No Data Available traMADol 50 mg Tab TAKE 1 TABLET BY KASEY TH TWICE DAILY NEEDED FOR PAIN 2021-07-18 No Data Available CALCIUM 600MG TABLETS TAKE 1 TABLET BY M OUTH TWICE DAILY 2021-07-16 No Data Available VITAMIN D3 2000UNIT CAPSULES TAKE 1 CAPS ULE BY MOUTH DAILY 2021-09-16 No Data Available tiZANidine 2 mg Tab TAKE 1 TABLET BY KASEY TH EVERY 8 HOURS NEEDED FOR MUSCLE SPASMS 2021-09-22 No Data Available methylPREDNISolone 4 mg Tab Therapy Pack FOLLOW PACKAGE DIRECTIONS 2021-10-22 2021-12-30 Gabapentin 300 mg Cap TAKE 1 CAPSULE BY MOUTH AT BEDTIME FOR PAIN 2021-12-07 No Data Available traMADol 50 mg Tab 1 tablet orally BID; as needed 2021-12-30 2023-08-10 Narcan 4 mg/0.1ML Liquid Nasal use 1 spr ay in one nostril in the event of opioid overdose. Call 911 after use 2021-12-30 No Data Available Diclofenac Sodium 1 % Gel APPLY 4GM TOPI CARRILLO 4 TIMES A DAY FOR PAIN. APPLY 1 TO 3 GRAMS TO THE AFFECTED AREA 3 TO 4 TIMES A DAY. 2022-06-17 No Data Available HYDROcodone-Acetaminophen 5/325 mg Tab TAKE 1 TABLET BY MOUTH EVERY 6 HOURS FOR 3 DAYS NEEDED FOR PAIN 2022-06-22 No Data Available Senna 8.6 mg Tab TAKE 2 TABLETS BY MO UTH AT BEDTIME FOR CONSTIPATION 2022-07-27 No Data Available Bisacodyl EC 5 mg Tab delaye d rel TAKE 2 TABLETS BY MOUTH AT BEDTIME FOR 30 DAYS 2022-08-31 No Data Available Calcium-Vitamin D3 250/3.125 mg-MCG Tab TAKE 1 TABLET BY MOUTH TWICE DAILY 2022-10-20 No Data Available Morphine Sulfate 15 mg Tab TAKE 1 TABLET BY MOUTH EVERY 8 HOURS NEEDED FOR PAIN 2022-10-22 No Data Available Albuterol Sulfate HFA 108 (9 0 Base) MCG/ACT Aerosol Solution INHALE 2 PUFFS BY MOUTH EVERY 6 HOURS NEEDED FOR SHORTNESS OF BREATH OR WHEEZING. 2022-10-26 2023-02-03 BINAXNOW COVID-[address] KIT TEST DIRECTED TODAY 2022-10-26 No Data Available PEG 3350-KCl-Na Bicarb-NaCl 420 GM Solution No Data Available 2022-11-03 2023-02-03 Simethicone Ultra Strength 1 80 mg Cap TAKE 1 CAPSULE BY MOUTH FOUR TIMES DAILY AFTER MEALS 2022-11-03 No Data Available Albuterol Sulfate HFA 108 (9 0 Base) MCG/ACT Aerosol Solution INHALE 2 PUFFS BY MOUTH EVERY 6 HOURS NEEDED FOR SHORTNESS OF BREATH OR WHEEZING. 2022-10-26 2023-02-03 Doxycycline Hyclate 100 mg Cap TAKE 1 CA PSULE BY MOUTH TWICE DAILY FOR 10 DAYS 2022-12-22 No Data Available Promethazine-DM 6.25/15 mg/5 ML Syrup 5 ml orally every 4-6 hours as needed for cough 2023-01-26 No Data Available Promethazine-DM 6.25/15 mg/5 ML Syrup TAKE 5 ML BY MOUTH EVERY 4 TO 6 HOURS NEEDED FOR COUGH 2023-01-26 No Data Available Levalbuterol 1.25 mg/3ML Nebulization Solution Inhalation 3 ml orally via nebulizer every 4 hours as needed 2023-01-26 No Data Available Levalbuterol 1.25 mg/3ML Nebulization Solution Inhalation INHALE 1 VIAL VIA NEBULIZER EVERY 4 HOURS NEEDED 2023-01-26 No Data Available Albuterol Sulfate HFA 108 (9 0 Base) MCG/ACT Aerosol Solution INHALE 2 PUFFS BY MOUTH EVERY 6 HOURS NEEDED FOR SHORTNESS OF BREATH OR WHEEZING. 2022-10-26 No Data Available Breo Ellipta 200-25 MCG/ACT Aerosol Powder Breath Activated INHALE 1 PUFF BY MOUTH DAILY 2023-02-25 No Data Available predniSONE 20 mg Tab TOME DOS TABLETAS P OR V A ORAL TODOS LOS D FOR 4 DAYS 2023-04-04 2023-08-10 Cyclobenzaprine 5 mg Tab TAKE 1 TABLET B Y MOUTH TWICE DAILY FOR 5 DAYS 2023-05-13 No Data Available Aspirin Low Dose 81 mg Tab delayed rel TAKE 1 TABLET ORALLY DAILY FOR 30 DAYS 2023-06-20 No Data Available Lidocaine 5 % Patch USE 2 PATCH TOPICALL Y DAILY FOR PAIN FOR 30 DAYS 2023-06-20 No Data Available Diclofenac Sodium 1 % Gel 4 grams topica lly to affected area 4 times per day PRN 2023-08-10 No Data Available predniSONE 20 mg Tab Take 2 tablets twic e daily for 3 days, 1 tablet twice daily for 2 days, and 1 tablet daily for 2 days. 2023-08-10 No Data Available Tylenol Extra Strength 500 m g Tab 2 tablet orally q 6hrs prn pain/fever 2023-08-10 No Data Available Cyclobenzaprine 10 mg Tab 1 tablet orall y BID PRN muscle spasms/pain 2023-08-10 No Data Available Azithromycin 250 mg Tab Take 2 tablets P O on day 1, then 1 tablet PO on days 2-5 2023-08-24 2024-03-04 Polymyxin B-Trimethoprim 42841-8.1 UNIT/ML-% Solution Ophthalmic 1 drop ophthalmically into both eyes 4 times per day for 5 days 2023-08-24 No Data Available Cetirizine 10 mg Tab TOME 1 TABLETA POR V A ORAL TODOS LOS D NEEDED FOR ALLERGY SYMPTOMS FOR 90 DAYS 2023-07-27 No Data Available Macrobid 100 mg Cap Take 1 tablet PO twi ce daily for 7 days. 2023-10-11 No Data Available Ondansetron 8 mg Tab Disintegrating 1 tablet orally every 8 hours as needed nausea 2023-10-11 No Data Available Tylenol Extra Strength 500 m g Tab 2 tablet orally Q6hrs prn pain/fever 2023-10-11 No Data Available tiZANidine 4 mg Tab TAKE 1 TABLET BY KASEY TH EVERY 8 HOURS NEEDED FOR BACK AND LEG PAIN 2023-11-20 No Data Available predniSONE 20 mg Tab 1 tablet twice tiny y for 5 days 2023-11-20 No Data Available Bactrim DS 800/160 mg Tab Take 1 tablet PO twice daily for 5 days. 2023-11-20 No Data Available Tylenol Extra Strength 500 m g Tab Take 2 tablet PO Q8H PRN for pain 2023-11-20 No Data Available Lidoderm 5 % Patch 1 patch topically to affected area daily remove after 12 hours 2023-11-22 No Data Available Roflumilast 500 MCG Tab TAKE 1 TABLET BY MOUTH DAILY 2023-12-26 No Data Available Pregabalin 100 mg Cap TAKE 1 CAPSULE BY MOUTH AT BEDTIME 2024-01-09 No Data Available Azelastine 0.1 % Solution Nasal use 2 sprays in each nostril twice daily 2024-03-04 No Data Available Problem List Problem Status Onset Date Resolved Date Chronic prescription benzodiazepine use Active N/A Other problems related to [facility] facilities and other health care Active 2023-09-01 N/A UTI (urinary tract infection)Nausea Active 10-10 N/A COPD (chronic obstructive pulmonary disease) Active 2023-01-26 N/A Chronic back pain greater th an 3 months durationBilateral sacroiliitisMuscle spasms of both lower extremitiesOpioid use Active 2021-12-30 N/A Cough Resolved 2023-01-26 2024-03-04 URI (upper respiratory infection) Active 2023-08 N/A Encounters Encounters Type Facility Date of Service Diagnosis/Co mplaint New patient,40-59min; chronic exacerbation, 2 stable chronic or 1 acute illness add add modifier 95 for video (do not use for phone, instead use [id number]) [facility] ([place] 12/[place]/2021 Opioid dependence, uncomplicatedLong term (current) use of opiate analgesicSedative, hypnotic or anxiolytic dependence, uncomplicatedDorsalgia, unspecifiedSciatica, unspecified sideSacroiliitis, not elsewhere classified New patient,40-59min; chronic exacerbation, 2 stable chronic or 1 acute illness add add modifier 95 for video (do not use for phone, instead use [id number]) [facility], ([place]) 12/30/20[place] New patient,40-59min; chronic exacerbation, 2 stable chronic or 1 acute illness add add modifier 95 for video (do not use for phone, instead use [id number]) [facility] [place] New patient,40-59min; chronic exacerbation, 2 stable chronic or 1 acute illness add add modifier 95 for video (do not use for phone, instead use 59060-58) [facility] [place] New patient,40-59min; chronic exacerbation, 2 stable chronic or 1 acute illness add add modifier 95 for video (do not use for phone, instead use [id number]) [facility] [place] New patient,40-59min; chronic exacerbation, 2 stable chronic or 1 acute illness add add modifier 95 for video (do not use for phone, instead use [id number]) [facility] [place] New patient,40-59min; chronic exacerbation, 2 stable chronic or 1 acute illness add add modifier 95 for video (do not use for phone, instead use 26079-88) [facility] [place] New patient,40-59min; chronic exacerbation, 2 stable chronic or 1 acute illness add add modifier 95 for video (do not use for phone, instead use 99565-67) [facility] [place] New patient,40-59min; chronic exacerbation, 2 stable chronic or 1 acute illness add add modifier 95 for video (do not use for phone, instead use 18124-25) [facility], ([place]) 12/[place]/20[place] Estab. patient 30-39min; chronic exacerbation, 2 stable chronic or 1 acute illness add add modifier 95 for video, (do not use for phone, instead use 95197-75) [facility] [place] 01/26/2023 Opioid dependence, uncomplicatedLong term (current) use of opiate analgesicSedative, hypnotic or anxiolytic dependence, uncomplicatedDorsalgia, unspecifiedSciatica, unspecified sideSacroiliitis, not elsewhere classifiedChronic obstructive pulmonary disease, unspecifiedCough, unspecified Estab. patient 30-39min; chronic exacerbation, 2 stable chronic or 1 acute illness add add modifier 95 for video, (do not use for phone, instead use 15233-09) [facility] [place] 01[place]/20[place] Estab. patient 30-39min; chronic exacerbation, 2 stable chronic or 1 acute illness add add modifier 95 for video, (do not use for phone, instead use 00565-76) [facility] [place] 01[place]/20[place] Estab. patient 30-39min; chronic exacerbation, 2 stable chronic or 1 acute illness add add modifier 95 for video, (do not use for phone, instead use 36220-58) [facility] [place]/20[place] Estab. patient 30-39min; chronic exacerbation, 2 stable chronic or 1 acute illness add add modifier 95 for video, (do not use for phone, instead use 18431-52) [facility] [place] 01[place]/20[place] Estab. patient 30-39min; chronic exacerbation, 2 stable chronic or 1 acute illness add add modifier 95 for video, (do not use for phone, instead use 30029-22) [facility] [place] 01[place]/2023 Estab. patient 30-39min; chronic exacerbation, 2 stable chronic or 1 acute illness add add modifier 95 for video, (do not use for phone, instead use 26923-04) [facility] [place] 01[place]/20[place] Estab. patient 30-39min; chronic exacerbation, 2 stable chronic or 1 acute illness add add modifier 95 for video, (do not use for phone, instead use 00270-66) [facility] [place] 01[place]/2023 Estab. patient 30-39min; chronic exacerbation, 2 stable chronic or 1 acute illness add add modifier 95 for video, (do not use for phone, instead use [id number]) [facility] [place] 01/[place]/2023 Estab. patient 30-39min; chronic exacerbation, 2 stable chronic or 1 acute illness add add modifier 95 for video, (do not use for phone, instead use 88792-77) [facility], ([place] 01/26/20[place] Estab. patient 30-39min; chronic exacerbation, 2 stable chronic or 1 acute illness add add modifier 95 for video, (do not use for phone, instead use 96723-76) [facility] [place] 02/[place]/2023 Dorsalgia, unspecifiedSciati ca, unspecified sideSacroiliitis, not elsewhere classifiedChronic obstructive pulmonary disease, unspecifiedLong term (current) use of opiate analgesicCough, unspecifiedOther city supervisor (current) drug therapy Estab. patient 30-39min; chronic exacerbation, 2 stable chronic or 1 acute illness add add modifier 95 for video, (do not use for phone, instead use 70790-32) [facility] [place] 02[place]/20[place] Estab. patient 30-39min; chronic exacerbation, 2 stable chronic or 1 acute illness add add modifier 95 for video, (do not use for phone, instead use 05574-29) [facility] [place] 02[place]/2023 Estab. patient 30-39min; chronic exacerbation, 2 stable chronic or 1 acute illness add add modifier 95 for video, (do not use for phone, instead use 95371-49) [facility] [place] 02[place]03/20[place] Estab. patient 30-39min; chronic exacerbation, 2 stable chronic or 1 acute illness add add modifier 95 for video, (do not use for phone, instead use 14606-71) [facility] [place] 02/03/2023 Estab. patient 30-39min; chronic exacerbation, 2 stable chronic or 1 acute illness add add modifier 95 for video, (do not use for phone, instead use 62546-34) [facility] ([place] 02[place]03/20[place] Estab. patient 30-39min; chronic exacerbation, 2 stable chronic or 1 acute illness add add modifier 95 for video, (do not use for phone, instead use 84704-84) [facility] [place] 02[place]03/20[place] Estab. patient 30-39min; chronic exacerbation, 2 stable chronic or 1 acute illness add add modifier 95 for video, (do not use for phone, instead use 09546-07) [facility] [place] 02/03/2023 No Data Available [facility] [place] 02[place]10/2023 Cough, unspecifiedSacroiliit is, not elsewhere classifiedDorsalgia, unspecifiedSciatica, unspecified side No Data Available [facility] [place] 02[place]10/2023 No Data Available [facility] [place] 02/10/2023 No Data Available [facility] [place] 08[place]2023 Dorsalgia, unspecifiedOther chronic painSacroiliitis, not elsewhere classifiedOther muscle spasmOpioid use, unspecified, uncomplicated No Data Available [facility] [place] 08[place]10/2023 No Data Available [facility] [place] 08[place]/2023 Acute upper respiratory infection, unspecified No Data Available [facility] [place] 08/24/2023 No Data Available [facility] [place] 08[place]/2023 No Data Available [facility] [place] 09[place]/2023 Acute upper respiratory infection, unspecifiedOther problems related to medical facilities and other health care No Data Available [facility] [place] 10[place]11/2023 Urinary tract infection, sit e not specifiedNausea No Data Available [facility] [place]/11/2023 No Data Available [facility] [place]20[place] Estab. patient 30-39min; chronic exacerbation, 2 stable chronic or 1 acute illness add add modifier 95 for video, (do not use for phone, instead use 77240-06) [facility] [place] 10[place]19/2023 Dorsalgia, unspecifiedOther chronic painSacroiliitis, not elsewhere classifiedOther chcf (current) drug therapyOther muscle spasmOpioid use, unspecified, uncomplicatedChronic obstructive pulmonary disease, unspecifiedOther problems related to medical facilities and other health careUrinary tract infection, site not specifiedNauseaPersonal history of nicotine dependence Estab. patient 30-39min; chronic exacerbation, 2 stable chronic or 1 acute illness add add modifier 95 for video, (do not use for phone, instead use 60707-42) [facility] [place] Estab. patient 30-39min; chronic exacerbation, 2 stable chronic or 1 acute illness add add modifier 95 for video, (do not use for phone, instead use 38684-35) [facility] [place] 10[place]19/2023 Estab. patient 30-39min; chronic exacerbation, 2 stable chronic or 1 acute illness add add modifier 95 for video, (do not use for phone, instead use 68607-87) [facility] [place] 10[place]19/2023 Estab. patient 30-39min; chronic exacerbation, 2 stable chronic or 1 acute illness add add modifier 95 for video, (do not use for phone, instead use 39262-84) [facility] [place] 10[place]19/2023 Estab. patient 30-39min; chronic exacerbation, 2 stable chronic or 1 acute illness add add modifier 95 for video, (do not use for phone, instead use 40881-43) [facility] [place] 10[place]19/2023 Estab. patient 30-39min; chronic exacerbation, 2 stable chronic or 1 acute illness add add modifier 95 for video, (do not use for phone, instead use 35633-73) [facility] [place] 10[place]19/2023 Estab. patient 30-39min; chronic exacerbation, 2 stable chronic or 1 acute illness add add modifier 95 for video, (do not use for phone, instead use 78025-59) [facility] [place] 10[place]19/2023 Estab. patient 30-39min; chronic exacerbation, 2 stable chronic or 1 acute illness add add modifier 95 for video, (do not use for phone, instead use 31844-60) [facility] [place] 10[place]19/20[place] Estab. patient 30-39min; chronic exacerbation, 2 stable chronic or 1 acute illness add add modifier 95 for video, (do not use for phone, instead use 19091-38) [facility] [place] 10/19/2023 No Data Available [facility] [place]2023 Sacroiliitis, not elsewhere classifiedDorsalgia, unspecifiedOther chronic painOther muscle spasmOpioid use, unspecified, uncomplicatedUrinary tract infection, site not specifiedNausea No Data Available [facility] [place]2023 No Data Available [facility] [place]2023 No Data Available [facility] [place]2023 No Data Available [facility] [place]/2023 Dorsalgia, unspecifiedOther chronic painSacroiliitis, not elsewhere classifiedOther muscle spasmOpioid use, unspecified, uncomplicatedUrinary tract infection, site not specifiedNauseaOther problems related to medical facilities and other health care No Data Available [facility] [place] 11[place]/2023 No Data Available [facility] [place] 01[place]/2024 Dorsalgia, unspecifiedOther problems related to medical facilities and other health careOther chronic painSacroiliitis, not elsewhere classifiedOther muscle spasmOpioid use, unspecified, uncomplicated No Data Available [facility] [place] 01[place]09/2024 Estab. patient 10-29min; 1 minor problem; add add modifier 95 for video, modifier 93 for phone [facility] [place] 02/20/2024 Chronic obstructive pulmonar y disease, unspecifiedDorsalgia, unspecifiedOther chronic painSacroiliitis, not elsewhere classifiedOther muscle spasmOpioid use, unspecified, uncomplicatedOther problems related to medical facilities and other health care Estab. patient 10-29min; 1 minor problem; add add modifier 95 for video, modifier 93 for phone [facility], [place] 02/20/2024 Estab. patient 10-29min; 1 minor problem; add add modifier 95 for video, modifier 93 for phone [facility], ([place] 02[place]20/20[place] Estab. patient 10-29min; 1 minor problem; add add modifier 95 for video, modifier 93 for phone [facility], ([place] 03/04/2024 Acute upper respiratory infection, unspecified Vital Signs Date of Collection Vitals 2021-12-30 12:40:02 Height - 152.4 cmWei ght - 63.05 kgBody Mass Index (BMI) - 27.15 kg/m2BP Diastolic - 79.0 mm[Hg]BP Systolic - 115.0 mm[Hg] 2023-01-26 06:13:17 Height - 152.4 cmWei ght - 67.59 kgBody Mass Index (BMI) - 29.1 kg/m2BP Diastolic - 74.0 mm[Hg]BP Systolic - 113.0 mm[Hg]Pain Scale - 3.0 {score} 2023-02-03 11:19:11 Height - 152.4 cmWei ght - 67.13 kgBody Mass Index (BMI) - 28.9 kg/m2BP Diastolic - 94.0 mm[Hg]BP Systolic - 139.0 mm[Hg] 2023-02-10 08:50:13 Pain Scale - 9.0 {sc ore} 2023-10-19 12:15:00 Weight - 68.49 kgBod y Mass Index (BMI) - 29.49 kg/m2BP Diastolic - 67.0 mm[Hg]BP Systolic - 113.0 mm[Hg]Pain Scale - 9.0 {score} 2023-11-20 10:41:07 BP Diastolic - 88.0 mm[Hg]BP Systolic - 120.0 mm[Hg]Heart Rate - 72.0 /minBody Temperature - 36.22 Disha 2024-02-20 11:04:29 Weight - 67.13 kgBod y Mass Index (BMI) - 28.9 kg/m2 Social History Social History Social History Observation Description Effec tive Time Current Smoking Status Former smoker 2024-03-18 7 Sex Female History of Procedures Procedures Service Procedure code Service date Servicing provider Phone# New patient,40-59min; chronic exacerbation, 2 stable chronic or 1 acute illness add add modifier 95 for video (do not use for phone, instead use [id number]) [id number] 2021-12-30 No Data Available No Data Availa ble Medication Review by prescribing provider or pharmacist documented (1160F) 1160F 2021-12-30 No Data Available No Data Cecilia ilable Functional Status Assessed (1170F) 1170F 2021-12-30 No Data Available No Data Avail able Advance Care Directive Advance care planning discussion documented in the medical record (3617F) 1158F 2021-12-30 No Data Available No Data Availa ble BMI obtained (3008F) 3008F 2021-12-30 No Data Availab le No Data Available Pain Assessment - Pain Documented on a Pain Scale (1125F) 1125F 2021-12-30 No Data Available No Data Cecilia ilable SBP < 130 (3074F) 3074F 2021-12-30 No Data Available No Data Available DBP <80 (3078F) 3078F 2021-12-30 No Data Available No Data Available No Data Available 1159 2021-12-30 No Data Available No Data Available Estab. patient 30-39min; chronic exacerbation, 2 stable chronic or 1 acute illness add add modifier 95 for video, (do not use for phone, instead use 37757-54) 02491 2023-01-26 No Data Available No Data Availa ble Medication List Documented (1159F) 1159F 2023-01-26 No Data Available No Data Cecilia ilable Medication Review by prescribing provider or pharmacist documented (1160F) 1160F 2023-01-26 No Data Available No Data Cecilia ilable Functional Status Assessed (1170F) 1170F 2023-01-26 No Data Available No Data Avail able Pain Assessment - Pain Documented on a Pain Scale (1125F) 1125F 2023-01-26 No Data Available No Data Cecilia ilable BMI obtained (3008F) 3008F 2023-01-26 No Data Availab le No Data Available Advance Care Directive Advance care planning discussion documented in the medical record (1158F) 1158F 2023-01-26 No Data Available No Data Availa ble Advance care planning discussed and documented ? advance care plan or surrogate decision-maker was documented in the medical record. (1123F) 1123F 2023-01-26 No Data Available No Data Availa ble DBP <80 (3078F) 3078F 2023-01-26 No Data Available No Data Available SBP < 130 (3074F) 3074F 2023-01-26 No Data Available No Data Available Estab. patient 30-39min; chronic exacerbation, 2 stable chronic or 1 acute illness add add modifier 95 for video, (do not use for phone, instead use [id number]) 75023 2023-02-03 No Data Available No Data Availa ble Medication List Documented (1159F) 1159F 2023-02-03 No Data Available No Data Cecilia ilable Medication Review by prescribing provider or pharmacist documented (1160F) 1160F 2023-02-03 No Data Available No Data Cecilia ilable BMI obtained (3008F) 3008F 2023-02-03 No Data Availab le No Data Available Advance Care Directive Advance care planning discussion documented in the medical record (1158F) 1158F 2023-02-03 No Data Available No Data Availa ble Advance care planning discussed and documented ? advance care plan or surrogate decision-maker was documented in the medical record. (1123F) 1123F 2023-02-03 No Data Available No Data Availa ble Pain Assessment - Pain Documented on a Pain Scale (1125F) 1125F 2023-02-03 No Data Available No Data Cecilia ilable Functional Status Assessed (1170F) 1170F 2023-02-03 No Data Available No Data Avail able No Data Available 2023-02-10 No Data Available No Data Available Pain Assessment - Pain Documented on a Pain Scale (1125F) 1125F 2023-02-10 No Data Available No Data Cecilia ilable Medication List Documented (1159F) 1159F 2023-02-10 No Data Available No Data Cecilia ilable No Data Available 27910 2023-08-10 No Data Available No Data Available Medication List Documented (1159F) 1159F 2023-08-10 No Data Available No Data Cecilia ilable No Data Available 61392 2023-08-24 No Data Available No Data Available SBP < 130 (3074F) 3074F 2023-08-24 No Data Available No Data Available DBP 80-89 (3079F) 3079F 2023-08-24 No Data Available No Data Available No Data Available 02549 2023-09-01 No Data Available No Data Available No Data Available 64444 2023-10-11 No Data Available No Data Available SBP >= 140 3077F 2023-10-11 No Data Available No Data Available DBP >=90 3080F 2023-10-11 No Data Available No Data Available Estab. patient 30-39min; chronic exacerbation, 2 stable chronic or 1 acute illness add add modifier 95 for video, (do not use for phone, instead use [id number]) [id number] 2023-10-19 No Data Available No Data Availa ble Medication Review by prescribing provider or pharmacist documented (1160F) 1160F 2023-10-19 No Data Available No Data Cecilia ilable Medication List Documented (1159F) 1159F 2023-10-19 No Data Available No Data Cecilia ilable Functional Status Assessed (1170F) 1170F 2023-10-19 No Data Available No Data Avail able SBP < 130 (3074F) 3074F 2023-10-19 No Data Available No Data Available DBP <80 (3078F) 3078F 2023-10-19 No Data Available No Data Available BMI obtained (3008F) 3008F 2023-10-19 No Data Availab le No Data Available Pain Assessment - Pain Documented on a Pain Scale (1125F) 1125F 2023-10-19 No Data Available No Data Cecilia ilable Advance Care Directive Advance care planning discussion documented in the medical record (1158F) 1158F 2023-10-19 No Data Available No Data Availa ble Advance care planning discussed and documented ? advance care plan or surrogate decision-maker was documented in the medical record. (1123F) 1123F 2023-10-19 No Data Available No Data Availa ble No Data Available [id number] 2023-11-20 No Data Available No Data Available Medication List Documented (1159F) 1159F 2023-11-20 No Data Available No Data Cecilia ilable SBP < 130 (3074F) 3074F 2023-11-20 No Data Available No Data Available DBP 80-89 (3079F) 3079F 2023-11-20 No Data Available No Data Available No Data Available [id number] 2023-11-22 No Data Available No Data Available Medication List Documented (1159F) 1159F 2023-11-22 No Data Available No Data Cecilia ilable No Data Available [id number] 2024-01-09 No Data Available No Data Available Medication List Documented (1159F) 1159F 2024-01-09 No Data Available No Data Cecilia ilable Estab. patient 10-29min; 1 minor problem; add add modifier 95 for video, modifier 93 for phone [id number] 2024-02-20 No Data Available No Data Availa ble Medication List Documented (1159F) 1159F 2024-02-20 No Data Available No Data Cecilia ilable BMI obtained (3008F) 3008F 2024-02-20 No Data Availab le No Data Available Estab. patient 10-29min; 1 minor problem; add add modifier 95 for video, modifier 93 for phone [id number] 2024-03-04 No Data Available No Data Availa ble Functional Status Functional Category Effective Dates ADLsAmbulating - Needs Melodie tanceDressing - Needs assistanceBathing - Needs assistanceToileting - Needs assistanceTransfers - Needs assistanceEating - Needs assistanceiADLsShopping - Needs assistanceMedications - Needs assistanceHousekeeping - Needs assistanceCooking - Needs assistance 2023-02-03 Falls in last 6 Months: No 2021-12-30 Mental Status Status Date aox3 2023-02-10 Assessments Date of Service Assessments 2021-12-30 12:40:02 Chronic prescription opiate use, Opioid dependenceBenzodiazepine dependenceBack pain, Sciatica, bilateral but worse on leftBilateral sacroiliitis 2023-01-26 06:13:17 Chronic prescription opiate use, Opioid dependenceBenzodiazepine dependenceBack pain, Sciatica, bilateral but worse on leftBilateral sacroiliitisCOPD (chronic obstructive pulmonary disease)Cough 2023-02-03 11:19:11 Chronic prescription opiate use,Chronic prescription benzodiazepine useBack pain, Sciatica, bilateral but worse on leftBilateral sacroiliitisCOPD (chronic obstructive pulmonary disease)Cough 2023-02-10 08:50:13 CoughBilateral sacro iliitisBack pain, Sciatica, bilateral but worse on left 2023-08-10 09:02:49 Follow up plan for a cute symptoms:Chronic back pain greater than 3 months durationBilateral sacroiliitisMuscle spasms of both lower extremitiesOpioid use 2023-08-24 09:00:37 Follow up plan for a cute symptoms: 09/01/23 with APPURI (upper respiratory infection) 2023-09-01 11:51:19 Follow up plan for a cute symptoms:URI (upper respiratory infection)Other problems related to medical facilities and other health care 2023-10-11 10:54:55 Follow up plan for jordyn henry symptoms:UTI (urinary tract infection)Nausea 2023-10-19 12:15:00 Chronic prescription benzodiazepine usehas been taking clonazepam for 10+ yearssafetyrisk of sedationChronic back pain greater than 3 months durationBilateral sacroiliitisMuscle spasms of both lower extremitiesOpioid use08/10/23: acute on chronic pain flare with spasmspt taking Tramadol and Gabapentin as ordered with little to no relief- noted prior order for Tizanindine- no longer taking fall/safety precautions- uses cane/ walker prn pt unable to take NSAIDS d/t GI issues- orders sent for: eRx New Cyclobenzaprine 10 mg Tab 1 tablet orally BID PRN muscle spasms/pain #30 tablet CZf7bTj New Tylenol Extra Strength 500 mg Tab 2 tablet orally q 6hrs prn pain/fever #30 tablet [id number] New Diclofenac Sodium 1 % Gel 4 grams topically to affected area 4 times per day PRN #100 gram GBh4lEw New Lidocaine 5 % Oint apply thin film to affected area TID prn pain #50 gram QUx4bQw New predniSONE 20 mg Tab Take 2 tablets twice daily for 3 days, 1 tablet twice daily for 2 days, and 1 tablet daily for 2 days. #18 tab [id number] plan of care and conservative measures for pain mgtfollow up with PCP as instructed and prn 10/19/23: stable on current treatment plan, cont follow up with PCP.COPD (chronic obstructive pulmonary disease)albuterol HFA PRNxopenex neb tx----Contingency plan------Normal oxygen flow rate: NonePRN medications and how often used at baseline: Albuterol MDI used PRN times per weekFor worsening symptoms:Increase use of albuterol inhaler to q2h PRN cough, breathlessness, Increased breathlessness - add prednisone taper 40mg x 3 days, 30mg x 3 days, 20mg x 3 days, 10mg x 3 daysChange in sputum - add azithromycin 500mg on day 1 then 250 mg on day 2-3Continues with cough but not worse. Pls see PCP or UC if any worsening sxs.10/19/23: Stable on inh/neb, denies worsening pulm ss today. Cont follow up with PCP.Other problems related to medical facilities and other health careWhen member to call: 1. If bp is elevated sbp>150; dbp>90 or symptomatic-h/a, dizziness, cp, sob. 2. if there is a fall 3. if BS >300 or BS<90 or symptomatic; i.e., dizzy, off balance , shaky, general weakness. 4. if UTI symptoms arise-urinary frequency, dysuria, low abd pain. [facility] Follow[facility]up with [facility] as needed for any acute or disease education needs that may arise 06/09.UTI (urinary tract infection)Tzbryv1610/11/2023eRx New Tylenol Extra Strength 500 mg Tab 2 tablet orally Q6hrs prn pain/fever #30 tablet KAw6wFb New Ondansetron 8 mg Tab Disintegrating 1 tablet orally every 8 hours as needed nausea #30 tablet XIm9kRu New Macrobid 100 mg Cap Take 1 tablet PO twice daily for 7 days. #14 tablet RFx10/19/23: Improved per pt, denies ss today. 2023-11-20 10:41:07 Follow up plan for a cute symptoms:Chronic back pain greater than 3 months durationBilateral sacroiliitisMuscle spasms of both lower extremitiesOpioid useUTI (urinary tract infection)Nausea 2023-11-22 08:34:36 Chronic back pain gr eater than 3 months durationBilateral sacroiliitisMuscle spasms of both lower extremitiesOpioid useUTI (urinary tract infection)NauseaOther problems related to medical facilities and other health care 2024-01-09 12:52:24 Chronic back pain gr eater than 3 months durationBilateral sacroiliitisMuscle spasms of both lower extremitiesOpioid useOther problems related to medical facilities and other health care 2024-02-20 11:04:29 COPD (chronic obstru ctive pulmonary disease)Chronic back pain greater than 3 months durationBilateral sacroiliitisMuscle spasms of both lower extremitiesOpioid useOther problems related to medical facilities and other health care 2024-03-04 12:47:32 URI (upper respirato ry infection) Plan of Care Date of Service Plans 12:40:02 Medication Review by prescribing provide r or pharmacist documented (1160F)Medication List Documented (1159F)Functional Status Assessed (1170F)Advance Care Directive Advance care planning discussion documented in the medical record (1158F)BMI obtained (3008F)SBP < 130 (3074F)DBP <80 (3078F)Televideo new patient,40-59min; chronic exacerbation, 2 stable chronic or 1 acute illness add modifier 95Pain Assessment - Pain Documented (1125F)Continue to see PCP. Follow-up with [facility] as needed for any acute or disease education needs that may arise.Takes Tramadol 50 mg BID and has for 1+ yearsSafetyRisk of sedationSending Narcanhas been taking clonazepam for 10+ yearssafetyrisk of sedationFor many years.Now at pain clinic in [facility], began seeing them on 12/07.On TramadolTizanindineGabapentinClonazepamTramadolTizanindineGabapentinClonazepa m 06:13:17 Medication Review by prescribing provide r or pharmacist documented (1160F)Medication List Documented (1159F)Functional Status Assessed (1170F)Advance Care Directive Advance care planning discussion documented in the medical record (1158F)BMI obtained (3008F)SBP 130-139 (3075F)DBP <80 (3078F)Televideo 30-39min; chronic exacerbation, 2 stable chronic or 1 acute illness add modifier 95Advance care planning discussed and documented ? advance care plan or surrogate decision-maker was documented in the medical record. (1123F)Pain Assessment - Pain Documented (1125F)Continue to see PCP. Follow-up with [facility] as needed for any acute or disease education needs that may arise.Takes Tramadol 50 mg BID and has for 1+ yearsSafetyRisk of sedationSending Narcanhas been taking clonazepam for 10+ yearssafetyrisk of sedationFor many years.Now at pain clinic in [facility], began seeing them on 12/07.On TramadolTizanindineGabapentinClonazepamTramadolTizanindineGabapentinClonazepa malbuterol HFA PRNxopenex neb tx----Contingency plan------Normal oxygen flow rate: NonePRN medications and how often used at baseline: Albuterol MDI used PRN times per weekFor worsening symptoms:Increase use of albuterol inhaler to q2h PRN cough, breathlessness, Increased breathlessness - add prednisone taper 40mg x 3 days, 30mg x 3 days, 20mg x 3 days, 10mg x 3 daysChange in sputum - add azithromycin 500mg on day 1 then 250 mg on day 2-: cough and chest congestion x 7 daysusing albuterol HFA q4 hours x 3 daysreports she has had eval by PCP; had covid testing yesterday ?negtook pred taper wich caused tachycardia-stoped on day 3finished abx todaycontinues to have cough and mild chest congestion with mild wheezingPLAN: start neb tx, and rx for probethazine DMStart above and expect to feel better in 48-72 hrs - call CB if you are not improving. ER if you are short of breath or weak.Rest. Increase fluids to help your immune system - tea, broth, water, diluted juice. Raw local honey 1 TBSP throughout day has natural antimicrobial properties.Steam shower 15min before bed and few times / day to open airway and clear congestion. Stop Afrin as can worsen your congestion after using 3 + days. Inhaler puffer 4/ day for bronchodilation 11:19:11 Medication Review by prescribing provide r or pharmacist documented (1160F)Medication List Documented (1159F)Functional Status Assessed (1170F)Advance Care Directive Advance care planning discussion documented in the medical record (1158F)BMI obtained (3008F)Televideo 30-39min; chronic exacerbation, 2 stable chronic or 1 acute illness add modifier 95Advance care planning discussed and documented ? advance care plan or surrogate decision-maker was documented in the medical record. (1123F)Pain Assessment - Pain Documented (1125F)Continue to see PCP. Follow-up with [facility] as needed for any acute or disease education needs that may arise.Takes Tramadol 50 mg BID and has for 1+ yearsSafetyRisk of sedationSending Narcanhas been taking clonazepam for 10+ yearssafetyrisk of sedationFor many years.Now at pain clinic in [facility], began seeing them on 12/07.On KhwetqksBbikcpttkpyNbefsabanpOwoxuibzhp68/21/2023ontinues with pain, poor historian, unclear how much pain she is having today, appears to be active but qrnycpXjfciazbBhsluletkjnFpfmnbkxtaUfgmwbseqk25/21/2023ontinues with pain, pls cont tx as prescribed, reports she was told that PT was not viable. Will investigate.albuterol HFA PRNxopenex neb tx----Contingency plan------Normal oxygen flow rate: NonePRN medications and how often used at baseline: Albuterol MDI used PRN times per weekFor worsening symptoms:Increase use of albuterol inhaler to q2h PRN cough, breathlessness, Increased breathlessness - add prednisone taper 40mg x 3 days, 30mg x 3 days, 20mg x 3 days, 10mg x 3 daysChange in sputum - add azithromycin 500mg on day 1 then 250 mg on day 2-ontinues with cough but not worse. Pls see PCP or UC if any worsening sxs.01/26/23: cough and chest congestion x 7 daysusing albuterol HFA q4 hours x 3 daysreports she has had eval by PCP; had covid testing yesterday ?negtook pred taper wich caused tachycardia-stoped on day 3finished abx todaycontinues to have cough and mild chest congestion with mild wheezingPLAN: start neb tx, and rx for probethazine DMStart above and expect to feel better in 48-72 hrs - call CB if you are not improving. ER if you are short of breath or weak.Rest. Increase fluids to help your immune system - tea, broth, water, diluted juice. Raw local honey 1 TBSP throughout day has natural antimicrobial properties.Steam shower 15min before bed and few times / day to open airway and clear congestion. Stop Afrin as can worsen your congestion after using 3 + days. Inhaler puffer 4/ day for hqfrsespnbwysok09/21/2023Very difficult to assess. Not a relieble historian, Claims her temp is 91 degrees F; clearly is taking it incorrectly. Reports that she felt feverish and had chills last nightFinished abx last week, still coughing, but unclear how bad it is.If still feeling feverish and w chills tomorrow pls have your PCP see you urgently or go to urgent care, as we need to have someone auscultate the lungs and/or do a CXR. Otherwise, watchful waiting, push fluids. cont inhalers/nebs.We will F/U next week. 08:50:13 Phone (patient, parent, or guardian); 5- 10 minutes of medical discussion (no modifier 95)Continue to see PCP. [facility] or disease education needs that may arise 06/09.01/26/23: cough and chest congestion x 7 daysusing albuterol HFA q4 hours x 3 daysreports she has had eval by PCP; had covid testing yesterday ?negtook pred taper wich caused tachycardia-stoped on day 3finished abx todaycontinues to have cough and mild chest congestion with mild wheezingPLAN: start neb tx, and rx for probethazine DMStart above and expect to feel better in 48-72 hrs - call CB if you are not improving. ER if you are short of breath or weak.Rest. Increase fluids to help your immune system - tea, broth, water, diluted juice. Raw local honey 1 TBSP throughout day has natural antimicrobial properties.Steam shower 15min before bed and few times / day to open airway and clear congestion. Stop Afrin as can worsen your congestion after using 3 + days. Inhaler puffer 4/ day for kkrzsdpcbpkpkyq36/21/2023Very difficult to assess. Not a relieble historian, Claims her temp is 91 degrees F; clearly is taking it incorrectly. Reports that she felt feverish and had chills last nightFinished abx last week, still coughing, but unclear how bad it is.If still feeling feverish and w chills tomorrow pls have your PCP see you urgently or go to urgent care, as we need to have someone auscultate the lungs and/or do a CXR. Otherwise, watchful waiting, push fluids. cont inhalers/nebs.We will F/U next week.02/10 stable has yrgizzsyNwmqqwhuQdtwjzqvbofAltfgdpeawTrolrklynd84/21/2023ontinues with pain, pls cont tx as prescribed, reports she was told that PT was not viable. Will investigate.02/10 has had this for years, will refer to neurologist, denies any bowel or bladder dysfunctionFor many years.Now at pain clinic in [facility], began seeing them on 12/07.On JddiuobaOqvmrrpcqszSvbndobpqmKkyulsjtmi67/21/2023ontinues with pain, poor historian, unclear how much pain she is having today, appears to be active but cdepop43/28 for many years will refer to neurologist for management and care, denies any bowel or bladder dysfunction, ambulates with cane/ walker 09:02:49 Phone (patient, parent, or guardian); 5- 10 minutes of medical discussion (no modifier 95)Continue to see PCP. Follow-up with [facility] as needed for any acute or disease education needs that may arise 06/09.08/10/23: acute on chronic pain flare with spasmspt taking Tramadol and Gabapentin as ordered with little to no relief- noted prior order for Tizanindine- no longer taking fall/safety precautions- uses cane/ walker prn pt unable to take NSAIDS d/t GI issues- orders sent for: eRx New Cyclobenzaprine 10 mg Tab 1 tablet orally BID PRN muscle spasms/pain #30 tablet UZr9xQp New Tylenol Extra Strength 500 mg Tab 2 tablet orally q 6hrs prn pain/fever #30 tablet CRe9fAs New Diclofenac Sodium 1 % Gel 4 grams topically to affected area 4 times per day PRN #100 gram TAl9sMw New Lidocaine 5 % Oint apply thin film to affected area TID prn pain #50 gram YPn8zJo New predniSONE 20 mg Tab Take 2 tablets twice daily for 3 days, 1 tablet twice daily for 2 days, and 1 tablet daily for 2 days. #18 tab INp9ptbgcqeo plan of care and conservative measures for pain mgtfollow up with PCP as instructed and prn 09:00:37 Phone (patient, parent, or guardian); 11 -20 minutes of medical discussion (no modifier 95)Continue to see PCP. Follow-up with [facility] as needed for any acute or disease education needs that may arise 06/09.08/24/23: Has tried tylenol, ibuprofen, OTC cough/cold medications with no relief.Will start: azithromycin, promethazine DM and polymyxin B/trimethoprim eye dropsContinue neb/inhaler as directedContinue OTC cough/cold meds Alternate tylenol/ibuprofen every 4-6 hours as neededMay use cool mist vaporizer/humidifier next to bed Elevate HOB when lying down Increase water intake, warm tea with honey, salt water garglesContact CB if no improvement or symptoms become worse.F/U with [facility] 09/01/23 with [facility] 11:51:19 Phone (patient, parent, or guardian); 5- 10 minutes of medical discussion (no modifier 95)Continue to see PCP. [facility] with [facility] as needed for any acute or disease education needs that may arise 06/09.08/24/23: Has tried tylenol, ibuprofen, OTC cough/cold medications with no relief.Will start: azithromycin, promethazine DM and polymyxin B/trimethoprim eye dropsContinue neb/inhaler as directedContinue OTC cough/cold meds Alternate tylenol/ibuprofen every 4-6 hours as neededMay use cool mist vaporizer/humidifier next to bed Elevate HOB when lying down Increase water intake, warm tea with honey, salt water garglesContact CB if no improvement or symptoms become worse.F/U with [facility] 09/01/23 with APP09/01/23: Patient reports that the symptoms are improving; Denies any current concerns. Contingency plan reviewed.When member to call: 1. If bp is elevated sbp>150; dbp>90 or symptomatic-h/a, dizziness, cp, sob. 2. if there is a fall 3. if BS >300 or BS<90 or symptomatic; i.e., dizzy, off balance , shaky, general weakness. 4. if UTI symptoms arise-urinary frequency, dysuria, low abd pain. [facility] Follow-up with [facility] as needed for any acute or disease education needs that may arise 06/09. 10:54:55 Phone (patient, parent, or guardian); 5- 10 minutes of medical discussion (no modifier 95)Continue to see PCP. Follow-up with [facility] as needed for any acute or disease education needs that may arise 06/09.10/11/2023eRx New Tylenol Extra Strength 500 mg Tab 2 tablet orally Q6hrs prn pain/fever #30 tablet RUv0wDw New Ondansetron 8 mg Tab Disintegrating 1 tablet orally every 8 hours as needed nausea #30 tablet CPi2yNu New Macrobid 100 mg Cap Take 1 tablet PO twice daily for 7 days. #14 tablet RFx0 12:15:00 Televideo 30-39min; chronic exacerbation , 2 stable chronic or 1 acute illness add modifier 95Functional Status Assessed (1170F)BMI obtained (3008F)Advance Care Directive Advance care planning discussion documented in the medical record (1158F)Advance care planning discussed and documented ? advance care plan or surrogate decision-maker was documented in the medical record. (1123F)Pain Assessment - Pain Documented (1125F)SBP < 130 (3074F)DBP <80 (3078F)Continue to see PCP. Follow-up with [facility] as needed for any acute or disease education needs that may arise. 10:41:07 Phone (patient, parent, or guardian); 11 -20 minutes of medical discussion (no modifier 95)Continue to see PCP. Follow-up with [facility] as needed for any acute or disease education needs that may arise 06/09.08/10/23: acute on chronic pain flare with spasmspt taking Tramadol and Gabapentin as ordered with little to no relief- noted prior order for Tizanindine- no longer taking fall/safety precautions- uses cane/ walker prn pt unable to take NSAIDS d/t GI issues- orders sent for: eRx New Cyclobenzaprine 10 mg Tab 1 tablet orally BID PRN muscle spasms/pain #30 tablet QHq5uOc New Tylenol Extra Strength 500 mg Tab 2 tablet orally q 6hrs prn pain/fever #30 tablet TPd0aPd New Diclofenac Sodium 1 % Gel 4 grams topically to affected area 4 times per day PRN #100 gram YSg5nZs New Lidocaine 5 % Oint apply thin film to affected area TID prn pain #50 gram KBf3gPe New predniSONE 20 mg Tab Take 2 tablets twice daily for 3 days, 1 tablet twice daily for 2 days, and 1 tablet daily for 2 days. #18 tab QLw8kbnfwqme plan of care and conservative measures for pain mgtfollow up with PCP as instructed and prn 10/19/23: stable on current treatment plan, cont follow up with PCP. 11/20/23:Recurrent pain in back and into legs with burning/stabbing sensation - has known DDD, likely some associated radiculopathy with this, though could be some OA in hips/knees as well.Start prednisone 20mg PO BID x 5 days to reduce inflammationTizanidine PRN for pain/spasms as she feels cyclobenzaprine not helpingTylenol 1000mg PO Q8H for pain as wellContinue to rest, activity as toleratedAPP f/u scheduled for 11/22/2407/eRx New Tylenol Extra Strength 500 mg Tab 2 tablet orally Q6hrs prn pain/fever #30 tablet GAu2uIf New Ondansetron 8 mg Tab Disintegrating 1 tablet orally every 8 hours as needed nausea #30 tablet RHn0lTl New Macrobid 100 mg Cap Take 1 tablet PO twice daily for 7 days. #14 tablet RFx10/19/23: Improved per pt, denies ss today. 11/20/23:Member describing dysuria and recurrent UTI symptomsStart bactrim DS BID x 5 daysEncouraged increased fluid intake, especially waterAPP f/u is scheduled for 11/21 regarding back symptoms, but can call back sooner for any new or worsened symptoms 08:34:36 Phone (patient, parent, or guardian); 21 -30 minutes of medical discussion (no modifier 95)Continue to see PCP. Follow-up with [facility] as needed for any acute or disease education needs that may arise 06/09.08/10/23: acute on chronic pain flare with spasmspt taking Tramadol and Gabapentin as ordered with little to no relief- noted prior order for Tizanindine- no longer taking fall/safety precautions- uses cane/ walker prn pt unable to take NSAIDS d/t GI issues- orders sent for: eRx New Cyclobenzaprine 10 mg Tab 1 tablet orally BID PRN muscle spasms/pain #30 tablet UAa2iLr New Tylenol Extra Strength 500 mg Tab 2 tablet orally q 6hrs prn pain/fever #30 tablet YWr2eSj New Diclofenac Sodium 1 % Gel 4 grams topically to affected area 4 times per day PRN #100 gram NGx7zDt New Lidocaine 5 % Oint apply thin film to affected area TID prn pain #50 gram ZNr8qSb New predniSONE 20 mg Tab Take 2 tablets twice daily for 3 days, 1 tablet twice daily for 2 days, and 1 tablet daily for 2 days. #18 tab [id number] plan of care and conservative measures for pain mgtfollow up with PCP as instructed and prn 10/19/23: stable on current treatment plan, cont follow up with PCP. 11/20/23:Recurrent pain in back and into legs with burning/stabbing sensation - has known DDD, likely some associated radiculopathy with this, though could be some OA in hips/knees as well.Start prednisone 20mg PO BID x 5 days to reduce inflammationTizanidine PRN for pain/spasms as she feels cyclobenzaprine not helpingTylenol 1000mg PO Q8H for pain as wellContinue to rest, activity as toleratedAPP f/u scheduled for 11/21/2409: Reports pain in her lower back radiating down to BLE. This has been chronic however has been stronger than normal since Tuesday11/13/23. She had an injection on 11/10/23 that was supposed to help the pain in her back and legs. Denies bowel or bladder incontinence or numbness around rectum concerning for cauda equina syndrome. Taking Tylenol q8h and tizanidine 4mg q8h hours with little relief. She is not taking any additional meds prescribed because her stomach cannot handle it. They did not send patches to the pharmacy and that she no longer has voltaren gel and therefore has not been using these. She has allergy to ibuprofen, itching, therefore will not prescribe voltaren. States the medications she takes makes her drowsy. Unclear from outside records when/if she has had imaging. She states she last had MRI in 2021. Denies history of back surgeries although she is told she has degenerative disc disease and may need surgery in the future. She has an appt with ortho spine on 11/24/[address] Horvath. Discussed fall precautions, using assistive device, ice/heat.10/11/2023eRx New Tylenol Extra Strength 500 mg Tab 2 tablet orally Q6hrs prn pain/fever #30 tablet [id number] New Ondansetron 8 mg Tab Disintegrating 1 tablet orally every 8 hours as needed nausea #30 tablet [id number] New Macrobid 100 mg Cap Take 1 tablet PO twice daily for 7 days. #14 tablet RFx10/19/23: Improved per pt, denies ss today. 11/20/23:Member describing dysuria and recurrent UTI symptomsStart bactrim DS BID x 5 daysEncouraged increased fluid intake, especially waterAPP f/u is scheduled for 11/21 regarding back symptoms, but can call back sooner for any new or worsened fuaumnpx08/8/24: Symptoms began 2 days ago on Tuesday. Continues taking antibiotic BID x5 days. She is on day 2 of antibiotics. She has increased urinary frequency, odor and suprapubic pain. Denies fever currently, but endorses fever when symptoms first began. Will follow up closer toward the end of her course to ensure symptoms improve.When member to call: 1. If bp is elevated sbp>150; dbp>90 or symptomatic-h/a, dizziness, cp, sob. 2. if there is a fall 3. if BS >300 or BS<90 or symptomatic; i.e., dizzy, off balance , shaky, general weakness. 4. if UTI symptoms arise-urinary frequency, dysuria, low abd pain. Please remember to call [facility] to see PCP. Follow-up with [facility] as needed for any acute or disease education needs that may arise 06/09. 2023- 12:52:24 Phone (patient, parent, or guardian); 11 -20 minutes of medical discussion (no modifier 95)Continue to see PCP. Follow-up with [facility] as needed for any acute or disease education needs that may arise 06/09.08/10/23: acute on chronic pain flare with spasmspt taking Tramadol and Gabapentin as ordered with little to no relief- noted prior order for Tizanindine- no longer taking fall/safety precautions- uses cane/ walker prn pt unable to take NSAIDS d/t GI issues- orders sent for: eRx New Cyclobenzaprine 10 mg Tab 1 tablet orally BID PRN muscle spasms/pain #30 tablet [id number] New Tylenol Extra Strength 500 mg Tab 2 tablet orally q 6hrs prn pain/fever #30 tablet [id number] New Diclofenac Sodium 1 % Gel 4 grams topically to affected area 4 times per day PRN #100 gram [id number] New Lidocaine 5 % Oint apply thin film to affected area TID prn pain #50 gram [id number] New predniSONE 20 mg Tab Take 2 tablets twice daily for 3 days, 1 tablet twice daily for 2 days, and 1 tablet daily for 2 days. #18 tab [id number] plan of care and conservative measures for pain mgtfollow up with PCP as instructed and prn 10/19/23: stable on current treatment plan, cont follow up with PCP. 11/20/23:Recurrent pain in back and into legs with burning/stabbing sensation - has known DDD, likely some associated radiculopathy with this, though could be some OA in hips/knees as well.Start prednisone 20mg PO BID x 5 days to reduce inflammationTizanidine PRN for pain/spasms as she feels cyclobenzaprine not helpingTylenol 1000mg PO Q8H for pain as wellContinue to rest, activity as toleratedAPP f/u scheduled for 11/21/2409: Reports pain in her lower back radiating down to BLE. This has been chronic however has been stronger than normal since Tuesday11/13/23. She had an injection on 11/10/23 that was supposed to help the pain in her back and legs. Denies bowel or bladder incontinence or numbness around rectum concerning for cauda equina syndrome. Taking Tylenol q8h and tizanidine 4mg q8h hours with little relief. She is not taking any additional meds prescribed because her stomach cannot handle it. They did not send patches to the pharmacy and that she no longer has voltaren gel and therefore has not been using these. She has allergy to ibuprofen, itching, therefore will not prescribe voltaren. States the medications she takes makes her drowsy. Unclear from outside records when/if she has had imaging. She states she last had MRI in 2021. Denies history of back surgeries although she is told she has degenerative disc disease and may need surgery in the future. She has an appt with ortho spine on 11/24/[address] Horvath. Discussed fall precautions, using assistive device, ice/heat.01/09/24: On 01/25/24 member has a test for the strength of her legs . Continues to have back pain, taking extra strength Tylenol (q8h), Tizanidine (q8h), Voltaren, Lidoderm patches. Denies any red flag symptoms such as urinary or bowel incontinence. Has baseline urinary incontinence. Running low on Tylenol, will send to pharmacy. She is requesting Flexeril, we discussed this is a similar medication to tizanidine, they are both muscle relaxers and it is not recommended to take them together. We discussed she can increase the dose of tizanidine to 1.5-2 tablets or 6mg-8mg q8h and to monitor for sedation, dizziness, drowsiness. She states the muscle relaxers helps with relaxing the muscles but she still has pain. I explained I cannot prescribe anything stronger for pain other than Tylenol/Volatren/Lidoderm. Message left for PCP, member requesting new rx for Tramadol, has gotten from her in the past.When member to call: 1. If bp is elevated sbp>150; dbp>90 or symptomatic-h/a, dizziness, cp, sob. 2. if there is a fall 3. if BS >300 or BS<90 or symptomatic; i.e., dizzy, off balance , shaky, general weakness. 4. if UTI symptoms arise-urinary frequency, dysuria, low abd pain. Please remember to call [facility] to see PCP. Follow-up with [facility] as needed for any acute or disease education needs that may arise 06/09. 11:04:29 Phone (patient, parent, or guardian); 5- 10 minutes of medical discussion (no modifier 95)Continue to see PCP. Follow-up with [facility] as needed for any acute or disease education needs that may arise 06/09.albuterol HFA PRNxopenex neb tx----Contingency plan------Normal oxygen flow rate: NonePRN medications and how often used at baseline: Albuterol MDI used PRN times per weekFor worsening symptoms:Increase use of albuterol inhaler to q2h PRN cough, breathlessness, Increased breathlessness - add prednisone taper 40mg x 3 days, 30mg x 3 days, 20mg x 3 days, 10mg x 3 daysChange in sputum - add azithromycin 500mg on day 1 then 250 mg on day 2-ontinues with cough but not worse. Pls see PCP or UC if any worsening sxs.10/19/23: Stable on inh/neb, denies worsening pulm ss today. Cont follow up with PCP. 02/20/24: Member's URI symptoms have improved.08/10/23: acute on chronic pain flare with spasmspt taking Tramadol and Gabapentin as ordered with little to no relief- noted prior order for Tizanindine- no longer taking fall/safety precautions- uses cane/ walker prn pt unable to take NSAIDS d/t GI issues- orders sent for: eRx New Cyclobenzaprine 10 mg Tab 1 tablet orally BID PRN muscle spasms/pain #30 tablet [id number] New Tylenol Extra Strength 500 mg Tab 2 tablet orally q 6hrs prn pain/fever #30 tablet [id number] New Diclofenac Sodium 1 % Gel 4 grams topically to affected area 4 times per day PRN #100 gram MDk5kIt New Lidocaine 5 % Oint apply thin film to affected area TID prn pain #50 gram [id number] New predniSONE 20 mg Tab Take 2 tablets twice daily for 3 days, 1 tablet twice daily for 2 days, and 1 tablet daily for 2 days. #18 tab [id number] plan of care and conservative measures for pain mgtfollow up with PCP as instructed and prn 10/19/23: stable on current treatment plan, cont follow up with PCP. 11/20/23:Recurrent pain in back and into legs with burning/stabbing sensation - has known DDD, likely some associated radiculopathy with this, though could be some OA in hips/knees as well.Start prednisone 20mg PO BID x 5 days to reduce inflammationTizanidine PRN for pain/spasms as she feels cyclobenzaprine not helpingTylenol 1000mg PO Q8H for pain as wellContinue to rest, activity as toleratedAPP f/u scheduled for 11/21/2409: Reports pain in her lower back radiating down to BLE. This has been chronic however has been stronger than normal since Tuesday11/13/23. She had an injection on 11/10/23 that was supposed to help the pain in her back and legs. Denies bowel or bladder incontinence or numbness around rectum concerning for cauda equina syndrome. Taking Tylenol q8h and tizanidine 4mg q8h hours with little relief. She is not taking any additional meds prescribed because her stomach cannot handle it. They did not send patches to the pharmacy and that she no longer has voltaren gel and therefore has not been using these. She has allergy to ibuprofen, itching, therefore will not prescribe voltaren. States the medications she takes makes her drowsy. Unclear from outside records when/if she has had imaging. She states she last had MRI in 2021. Denies history of back surgeries although she is told she has degenerative disc disease and may need surgery in the future. She has an appt with ortho spine on 11/24/[address] Horvath. Discussed fall precautions, using assistive device, ice/heat.01/09/24: On 01/25/24 member has a test for the strength of her legs . Continues to have back pain, taking extra strength Tylenol (q8h), Tizanidine (q8h), Voltaren, Lidoderm patches. Denies any red flag symptoms such as urinary or bowel incontinence. Has baseline urinary incontinence. Running low on Tylenol, will send to pharmacy. She is requesting Flexeril, we discussed this is a similar medication to tizanidine, they are both muscle relaxers and it is not recommended to take them together. We discussed she can increase the dose of tizanidine to 1.5-2 tablets or 6mg-8mg q8h and to monitor for sedation, dizziness, drowsiness. She states the muscle relaxers helps with relaxing the muscles but she still has pain. I explained I cannot prescribe anything stronger for pain other than Tylenol/Volatren/Lidoderm. Message left for PCP, member requesting new rx for Tramadol, has gotten from her in the past.02/20/24: Complains of chronic back and leg pain that is always there. Has been taking PRN tizanidine q8h PRN as prescribed, it has been helpful. Only has about 3 tablets left. Last filled on 02/02/24 for 45 tabs. Will refill rx, sent to [facility].When member to call: 1. If bp is elevated sbp>150; dbp>90 or symptomatic-h/a, dizziness, cp, sob. 2. if there is a fall 3. if BS >300 or BS<90 or symptomatic; i.e., dizzy, off balance , shaky, general weakness. 4. if UTI symptoms arise-urinary frequency, dysuria, low abd pain. [facility] Follow-up with [facility] as needed for any acute or disease education needs that may arise 06/09. 12:47:32 Televideo 10-29min; 1 minor problem; add add modifier 95 for video, modifier 93 for phoneContinue to see PCP. [facility] or disease [facility] needs that may arise 06/09.03/04/24- Azelastine 0.1 % Solution Nasal use 2 sprays in each nostril twice daily #1 each [id number] Promethazine-DM 6.25/15 mg/5ML Syrup 5 ml orally every 4-6 hours as needed for cough #200 ml [id number] use cool mist vaporizer/humidifier next to bed Elevate HOB when lying down Increase water intakeContact CB if no improvement or symptoms become worse.Can Use Nebs Q 4 hrs prn. Goals Date Goal 2021-12-30 Remember to 2021-12-30 Call me if 2021-12-30 Keep it up 2023-02-10 continue medications as prescribed 2023-02-10 call if you feel ill , have any questions or concerns 2023-02-10 no new concerns, ebenezer l refer to neurology
--- NOTE | 2024-04-10 10:01 | A.OFFPC_ITS ---
Vital Signs 04/10/24 10:03 Height 5 ft Weight 147 lb BMI 28.7 BP 110/68 Blood Pressure Location Lt brachial Position Sitting Pulse 91 Pulse Source Pulse Oximeter Temp 97.1 F Temp Source Temporal Artery Scan Pulse Oximetry (%) 97 Oxygen Delivery Method Room Air Intake Visit Reasons: Pain in the ear Intake Note: Patient is here to follow up on ear pain. Solar Installation Manager Required: Yes Solar Installation Manager Language: Tobacco Baler Name: Ana Paula ([id number]) Information Interpreted: non-clinical & clinical Bonbon Cream Warmer: Not Required per policy Accompanied by: Self / Same As Patient Allergies naproxen Allergy (Intermediate, Verified 04/10/24 10:11) abdominal pain ibuprofen [From Motrin] Adverse Reaction (Mild, Verified 04/10/24 10:11) stomach pain Medication List - Last Reconciled 04/10/24 by Colette Esteves PA-C albuterol sulfate 90 mcg/actuation 2 inhalations inhalation Q6H PRN 30 days aspirin 81 mg PO DAILY 30 days bisacodyl (Dulcolax (bisacodyl)) 10 mg (2 x 5 mg) PO BEDTIME 30 days calcium carbonate-vitamin D3 250 mg-3.125 mcg (125 unit) (Oyster Shell Calcium- Vitamin D3) 1 tab PO BID 90 days cane quad cane cetirizine (All Day Allergy (cetirizine)) 10 mg PO DAILY PRN 90 days clonazepam 1 mg PO BEDTIME PRN 30 days diclofenac sodium 1% (Arthritis Pain (diclofenac)) 4 grams topical QID fluticasone furoate-vilanterol 200-25 mcg/dose (Breo Ellipta) 1 inh inhalation DAILY 30 days gabapentin 300 mg PO BEDTIME 30 days Grab bar As directed hydrocortisone 1% (Anti-Itch (hydrocortisone)) 1 appl topical BID PRN 30 days incontinence pad, liner, disp Use 1 pad three times a day incontinence pad, liner, disp Use 1 pad three times a day levalbuterol HCl 1.25 mg (3 mL) inhalation BID 30 days lidocaine 5% 2 patches topical DAILY 30 days nebulizers As directed [raised toilet seat As directed] roflumilast (Daliresp) 500 mcg PO DAILY 30 days simethicone 180 mg PO QID 30 days tramadol 50 mg PO DAILY 30 days tramadol 50 mg PO BEDTIME 30 days [wipes As directed] Tobacco use date assessed: 04/10/24 Fall risk assessment: No Falls in past year Last assessed Fall Risk: 04/10/24 Dental Screening Dental Screen Date: 04/10/24 Did you have a dental visit in the last 12 months?: Yes Did you have a dental problem in the last 6 months where you did not have access to dental care?: No Was dental information given to patient?: Patient has dentist HPI Pain in the ear HPI Details 73-year-old female with past medical his tory of chronic pain syndrome, generalized anxiety disorder, cirrhosis, centrilobular emphysema, obstructive sleep apnea last seen 07/[address] Evans coming in for acute problem. Ana Paula [id number] Panamanian intepreter was used for the duration of this visit. Presenting with left ear pain. Ear pain commenced one week prior and has progressively worsened, characterized as severe and stabbing. Pain interferes with sleep, particularly at night, and is located in the left ear, extending to the junction of the ear and face, and the neck. Physical contact with the ear increases pain intensity. No associated fever, cough, or sore throat, and has not been swimming recently. [facility] Medical History Chest pain Blurry vision Abnormal chest x-ray Pre-op examination Emphysema of lung Thoracic back pain Physical exam Muscle spasm Back pain Chronic restrictive lung disease Temporomandibular joint (TMJ) pain Anemia Osteopenia Postmenopausal Obese Chronic pain syndrome Hypovitaminosis D Depression with anxiety Surgical History H/O colonoscopy S/P FARRAH-BSO (total abdominal hysterectomy and bilateral salpingo-oophorectomy) Family History Father No problems noted. Mother Emphysema lung Sister Colon cancer Social History Housing: Apartment Alcohol intake: never Patient Tobacco Use Status: Former Tobacco user Tobacco use type: Cigarette e-Cigarette/Vaping Use: Never Used Second Hand Smoke Exposure: No Advance Directives Date on File: 01/12/22 service: No Current occupational status: unemployed Cognitive needs: Yes Hearing needs: No Vision needs: No Questionnaire PHQ-9 Over the last 2 weeks, how often have you been bothered by any of the following problems? 1. Little interest or pleasure in doing things: not at all 2. Feeling down, depressed, or hopeless: not at all 3. Trouble falling or staying asleep, or sleeping too much: not at all 4. Feeling tired or having little energy: not at all 5. Poor appetite or overeating: not at all 6. Feeling bad about yourself - or that you are a failure or have let yourself or your family down: not at all 7. Trouble concentrating on things, such as reading the newspaper or watching television: not at all 8. Moving or speaking so slowly that other people could have noticed. Or the opposite - being so fidgety or restless that you have been moving around a lot more than usual: not at all 9. Thoughts that you would be better off or of hurting yourself in some way: not at all Total score: 0 Depression Screening Interpretation: Negative Depression Screening Done: Yes Source: Developed by Drs. Jose Carlos Remy, Meagan Oviedo, Rob Belle and colleagues, with an educational stanley from [employer]. Thrive Questionnaire Date Thrive assessed: 04/10/24 I am a: Patient What is your living situation today?: I have a steady place to live Within the past 12 months, did the food you bought not last and you didn't have the money to get more?: Never true Within the past 12 months, did you worry whether your food would run out before you got money to buy more?: Never true Do you have trouble paying for medicines?: No Do you have trouble getting transportation to medical appointments?: No Do you have trouble paying your heating and electricity bill?: No Do you have trouble taking care of your child, family member or friend?: No Do you have trouble with day-to-day activities such as bathing, preparing meals, shopping, managing finances, etc.?: No Are you currently unemployed and looking for a job?: No Are you interested in more education?: No Please select the resources that you would like help with: None Currently or been in a relationship where the following occur: No concerns reported THRIVE Score: 0 AUDIT C Alcohol Use Questionnaire (AUDIT-C) 1. How often do you have a drink containing alcohol?: Never Total Score: 0 KEZIA-7 AMB Questionnaire KEZIA-7 Date KEZIA - 7 assessed: 04/10/24 Feeling nervous, anxious, or on edge: 0 = Not at all Not being able to stop or control worryin = Not at all Worrying too much about different things: 0 = Not at all Trouble relaxin = Not at all Being so restless that it is hard to sit still: 0 = Not at all Becoming easily annoyed or irritable: 0 = Not at all Feeling afraid as if something awful might happen: 0 = Not at all Total KEZIA-7 score (0-4 normal; 5-9 mild; 10-14 moderate; 15-21 severe): 0 Source: Developed by Drs. Jose Carlos Remy, Meagan Oviedo, Rob Belle and colleagues, with an educational stanley from [employer]. Review of Systems Const Denies body aches, Denies chills, Denies fever(s), Denies headache(s) and Denies poor appetite Eyes Reports no additional complaints ENT Denies dysphagia, Denies dizziness, Denies headache(s) and Denies odynophagia Card Denies chest pain, Denies syncope, Denies edema, Denies irregular heart rhythm, Denies lightheadedness and Denies dyspnea Resp Denies cough and Denies dyspnea GI Denies abdominal pain, Denies constipation, Denies dysphagia, Denies diarrhea, Denies nausea, Denies odynophagia and Denies vomiting Reports no additional complaints Musc Reports no additional complaints and Denies abnormal gait Skin/Breast Reports system reviewed and no additional complaints, except as documented Neuro Denies abnormal gait, Denies dizziness, Denies syncope and Denies headache(s) Psych Reports no additional complaints Physical exam (Primary Care) Vital Signs: Last Vital Signs Temp 97.1 F 04/10/24 10:03 Pulse 91 04/10/24 10:03 BP 110/68 04/10/24 10:03 Pulse Ox 97 04/10/24 10:03 Oxygen Delivery Method Room Air 04/10/24 10:03 BMI result Body Mass Index 28.7 Tobacco/Smoking Status: Tobacco use Status Tobacco use date assessed 04/10/24 04/10/24 10:09 Patient Tobacco Use Status Former Tobacco user 04/10/24 10:09 Tobacco use type Cigarette 04/10/24 10:09 e-Cigarette/Vaping Use Never Used 04/10/24 10:09 PHQ-9: PHQ-9 Score PHQ-9: Total score 0 04/10/24 12:50 Depression Screening Interpretation: Negative Thrive Assessment: Date of Thrive Assessment Date Thrive assessed 04/10/24 04/10/24 10:09 Currently or been in a relationship where the following occur: No concerns reported Const General: cooperative, healthy appearing, comfortable and no acute distress Orientation/consciousness: patient oriented x3 HENMT Head: Yes normocephalic Ears: hearing grossly normal bilaterally, TM normal on the left, EAC's normal, mastoid abnormal (tender to palpation on the right ) and TM abnormal erythematous on the right General nose exam: Normal external nose present Eyes General: appearance normal, both eyes and all related structures Conjunctivae: conjunctivae normal Neck Neck: Yes full ROM and Yes no lymphadenopathy Resp Effort & Inspection: normal respiratory effort Auscultation: clear to auscultation bilaterally, no crackles, no rales, no rhonchi and no wheezes Cardio Rate: regular rate Rhythm: regular rhythm Skin General skin exam: no rashes or lesions noted Neuro General: patient oriented x3 Gait exam (Neuro): Normal gait present Extrem General: Yes normal to inspection, Yes full ROM and No edema Psych Affect: normal affect Attitude: cooperative Insight: Good insight present (Psych) Judgement: Good judgement present (Psych) Coding Level of Care Code Est Pt Level 4 (49092) Diagnoses Otitis media H66.90 Assessment & Plan Assessment & Plan (1) Otitis media: Code(s): H66.90 - Otitis media, unspecified, unspecified ear Category: Medical Plan: The primary concern for this visit was the patient?s left ear pain. An assessment will focus on distinguishing potential causes like acute otitis media, ensuring comprehensive symptom assessment, and possibly recommending evaluations such as otoscopy. The management plan would involve addressing pain management and observing for any progression of symptoms that may necessitate further intervention. Due to severe pain on exam concern for possible mastoiditis. However given patient is afebrile and very mild swelling behind the ear makes it less likely but have to ruled out with CT scan. Urgent CT scan order was placed. I did review this case with Dr. Rosenbaum who also examined the patient and he is in agreement with the plan. Plan Patient was informed and verbally consented to the use of an ambient scribe for clinic note documentation during this visit. This note was constructed using voice recognition software. While every effort has been made to ensure accuracy and application helper, still areas may have been included sometimes these areas may affect the content or meeting of the given symptoms. Total time spent caring for the patient today was 20 minutes. This includes time spent before the visit reviewing the chart, time spent during the visit, and time spent after the visit and documentation. Orders: Orders CT mastoid Today H92.01 - Otalgia, right ear Medications: New 2 amoxicillin-pot clavulanate 875-125 mg 1 tab PO BID 14 tabs 0RF kcxgnurs-dpxohkpot-FB 3.5-10,000-1 mg/mL-unit/mL-% 4 drps otic (ear) right Q8H 1 week 10 mL 0RF
[2024-04-10 10:03] VITALS: BP 110/68; PULSE 91; TEMP 36.2; O2SAT 97; BMI 28.7
== END 2024-04-10 10:43 | disposition home or self-care (01) ==
DX: H66.90 Otitis media, unspecified, unspecified ear (principal)

== ENCOUNTER → 2024-04-10 08:59 | Outpatient (BNVA) | payer OTHER, SELFPAY | PROVIDERS: Visit Provider Internal Medicine | DX: H66.92 Otitis media, unspecified, left ear (principal) | CPT/HCPCS: 99212 ==

== ENCOUNTER 2024-04-20 15:26 | Outpatient (REF) | payer OTHER, SELFPAY ==
--- NOTE | ~2024-04-20 | CT_ITS ---
EXAMINATION: CT TEMPORAL BONES. CLINICAL INFORMATION: Otalgia, right ear. COMPARISON: Correlated to CT brain dated October 24, 2017. TECHNIQUE: Contiguous axial images through the temporal bones with bone algorithm. Sagittal and coronal reformatted images acquired. This CT examination was performed using dose optimization techniques as appropriate, variously including the following: *Automated exposure control *Adjustment of mA and/or kV according to patient size (this includes techniques or standardized protocols for targeted exams where dose is matched to indication/reason for exam; i.e. extremities or head) *Use of iterative reconstruction technique DLP: 134 mGy centimeter. FINDINGS: RIGHT TEMPORAL BONE: External auditory canal, cartilage and osseous segments: No gross mucosal thickening. No focal stenosis. No gross soft tissue lesion. Tympanic cavity: Not thickened. Tympanic cavity: Aerated. No gross soft tissue attenuation lesions. Ossicles: Intact and well articulated. Old window and round window: Well aerated. Tegmen tympani: Intact.. Sinus tympanic: Well aerated. Facial nerve canal, fallopian canal, labyrinthine, geniculate, tympanic and mastoid segments: Intact. Nonenlarged. Aditus at antrum, mastoid antrum, mastoid air cells: Well aerated. Well pneumatized. Cochlear, vestibule and semicircular canals: Intact. Nonenlarged. Normal morphology pattern. Vestibular and cochlear aqueducts: No enlarged. Internal auditory canal: Intact. Carotid canal: Intact. Temporomandibular joint: Degenerative changes. Internal jugular bulb: Intact. LEFT TEMPORAL BONE: External auditory canal, cartilage and osseous segments: No gross mucosal thickening. No focal stenosis. No gross soft tissue lesion. Tympanic cavity: Not thickened. Tympanic cavity: Aerated. No gross soft tissue attenuation lesions. Ossicles: Intact and well articulated. Old window and round window: Well aerated. Tegmen tympani: Intact.. Sinus tympanic: Well aerated. Facial nerve canal, fallopian canal, labyrinthine, geniculate, tympanic and mastoid segments: Intact. Nonenlarged. Aditus at antrum, mastoid antrum, mastoid air cells: Well aerated. Well pneumatized. Cochlear, vestibule and semicircular canals: Intact. Nonenlarged. Normal morphology pattern. Vestibular and cochlear aqueducts: No enlarged. Internal auditory canal: Intact. Carotid canal: Intact. Temporomandibular joint: Intact. Internal jugular bulb: Intact. ANCILLARY FINDINGS: Calcified plaques in the cavernous supraclinoid segments both ICAs and V4 segments both vertebral arteries. Mucosal thickening, maxillary sinuses, sphenoid sinus and ethmoid air cells. Edentulous, maxilla. CT/CT mastoid IMPRESSION: Normal temporal bones. Consider chronic paranasal sinus disease. Moderate to severe degenerative changes, right temporomandibular joint. Electronically signed by: Tyrese Rivas MD 04/23/2024 08:37 AM EDT
--- OUTSIDE RECORDS SUMMARY | 2024-04-20 16:59 | XMS_ITS ---
Author Name Nia Holley NP Address [address] [place] [address] Phone [phone] [facility] Care Team Providers Care Land Surveyor Name Role Phone Nia Holley Unavailable [phone] Unavailable Unavailable Unavailable SUSAN IBARRA Unavailable [phone] Unavailable Unavailable [phone] Reason for Referral Not Available Allergies, adverse [...] mg Tab TAKE 2 TABLETS BY MO UT AT BEDTIME FOR CONSTIPATION 2022-07-27 No Data [...] on days 2-5 2023-08-24 2024-03-04 Polymyxin B-Trimethoprim 23472-6.1 UNIT/ML-% Solution Ophthalmic 1 drop ophthalmically into [...] Resolved Date Chronic prescription benzodiazepine use Active 2 N/A Other problems related to [facility] facilities and other health care Active [...] (do not use for phone, instead use 57474-23) [facility] ([place]) 12/30/2021 Opioid dependence, uncomplicatedLong term (current) use of opiate analgesicSedative, hypnotic or anxiolytic dependence, uncomplicatedDorsalgia, unspecifiedSciatica, unspecified sideSacroiliitis, not elsewhere classified New patient,40-59min; chronic exacerbation, 2 stable chronic or 1 acute illness add add modifier 95 for video (do not use for phone, instead use 05927-38) [facility] ([place] New patient,40-59min; chronic exacerbation, 2 stable chronic or 1 acute illness add add modifier 95 for video (do not use for phone, instead use 24138-53) [facility] New patient,40-59min; chronic exacerbation, 2 stable chronic or 1 acute illness add add modifier 95 for video (do not use for phone, instead use 95456-18) [facility] New patient,40-59min; chronic exacerbation, 2 stable chronic or 1 acute illness add add modifier 95 for video (do not use for phone, instead use 59433-27) [facility] New patient,40-59min; chronic exacerbation, 2 stable chronic or 1 acute illness add add modifier 95 for video (do not use for phone, instead use 18623-08) [facility] New patient,40-59min; chronic exacerbation, 2 stable chronic or 1 acute illness add add modifier 95 for video (do not use for phone, instead use 54161-26) [facility] New patient,40-59min; chronic exacerbation, 2 stable chronic or 1 acute illness add add modifier 95 for video (do not use for phone, instead use 54956-99) [facility] New patient,40-59min; chronic exacerbation, 2 stable chronic or 1 acute illness add add modifier 95 for video (do not use for phone, instead use 06007-44) [facility] Estab. patient 30-39min; chronic exacerbation, 2 stable chronic or 1 acute illness add add modifier 95 for video, (do not use for phone, instead use 83638-72) [facility]23 Opioid dependence, uncomplicatedLong term (current) use of opiate analgesicSedative, hypnotic or anxiolytic dependence, uncomplicatedDorsalgia, unspecifiedSciatica, unspecified sideSacroiliitis, not elsewhere classifiedChronic obstructive pulmonary disease, unspecifiedCough, unspecified Estab. patient 30-39min; chronic exacerbation, 2 stable chronic or 1 acute illness add add modifier 95 for video, (do not use for phone, instead use 88610-41) [facility] Estab. patient 30-39min; chronic exacerbation, 2 stable chronic or 1 acute illness add add modifier 95 for video, (do not use for phone, instead use 10168-06) [facility] Estab. patient 30-39min; chronic exacerbation, 2 stable chronic or 1 acute illness add add modifier 95 for video, (do not use for phone, instead use 29385-31) [facility] Estab. patient 30-39min; chronic exacerbation, 2 stable chronic or 1 acute illness add add modifier 95 for video, (do not use for phone, instead use 47848-53) [facility] Estab. patient 30-39min; chronic exacerbation, 2 stable chronic or 1 acute illness add add modifier 95 for video, (do not use for phone, instead use 92333-04) [facility] Estab. patient 30-39min; chronic exacerbation, 2 stable chronic or 1 acute illness add add modifier 95 for video, (do not use for phone, instead use 37703-30) [facility] Estab. patient 30-39min; chronic exacerbation, 2 stable chronic or 1 acute illness add add modifier 95 for video, (do not use for phone, instead use 19364-88) [facility] Estab. patient 30-39min; chronic exacerbation, 2 stable chronic or 1 acute illness add add modifier 95 for video, (do not use for phone, instead use 59166-03) [facility] Estab. patient 30-39min; chronic exacerbation, 2 stable chronic or 1 acute illness add add modifier 95 for video, (do not use for phone, instead use 33604-82) [facility] ([place]20[place] Estab. patient 30-39min; chronic exacerbation, 2 stable chronic or 1 acute illness add add modifier 95 for video, (do not use for phone, instead use 56506-84) [facility] Dorsalgia, unspecifiedSciati ca, unspecified sideSacroiliitis, not elsewhere classifiedChronic obstructive pulmonary disease, unspecifiedLong term (current) use of opiate analgesicCough, unspecifiedOther intermediate accountant (current) drug therapy Estab. patient 30-39min; chronic exacerbation, 2 stable chronic or 1 acute illness add add modifier 95 for video, (do not use for phone, instead use 56468-31) [facility] Estab. patient 30-39min; chronic exacerbation, 2 stable chronic or 1 acute illness add add modifier 95 for video, (do not use for phone, instead use 84434-43) [facility] Estab. patient 30-39min; chronic exacerbation, 2 stable chronic or 1 acute illness add add modifier 95 for video, (do not use for phone, instead use 91341-73) [facility] Estab. patient 30-39min; chronic exacerbation, 2 stable chronic or 1 acute illness add add modifier 95 for video, (do not use for phone, instead use 21268-23) [facility] ([place] 02[place] Estab. patient 30-39min; chronic exacerbation, 2 stable chronic or 1 acute illness add add modifier 95 for video, (do not use for phone, instead use 67517-22) [facility] 02[place]20[place] Estab. patient 30-39min; chronic exacerbation, 2 stable chronic or 1 acute illness add add modifier 95 for video, (do not use for phone, instead use 38353-85) [facility] 02[place] Estab. patient 30-39min; chronic exacerbation, 2 stable chronic or 1 acute illness add add modifier 95 for video, (do not use for phone, instead use 25156-65) [facility] 02[place]03[place]23 No Data Available [facility]10[place]2023 Cough, unspecifiedSacroiliit is, not elsewhere classifiedDorsalgia, unspecifiedSciatica, unspecified side No Data Available [facility] 02[place]10[place]2023 No Data Available [facility]/10[place]2023 No Data Available [facility]/2023 Dorsalgia, unspecifiedOther chronic painSacroiliitis, not elsewhere classifiedOther muscle spasmOpioid use, unspecified, uncomplicated No Data Available [facility] 08[place]2023 No Data Available [facility]2023 Acute upper respiratory infection, unspecified No Data Available [facility] 08[place]2023 No Data Available [facility]23 No Data Available [facility] 09[place]/2023 Acute upper respiratory infection, unspecifiedOther problems related to medical facilities and other health care No Data Available [facility]2023 Urinary tract infection, sit e not specifiedNausea No Data Available [facility]2023 No Data Available [facility] Estab. patient 30-39min; chronic exacerbation, 2 stable chronic or 1 acute illness add add modifier 95 for video, (do not use for phone, instead use 97858-34) [facility]19[place]2023 Dorsalgia, unspecifiedOther chronic painSacroiliitis, not elsewhere classifiedOther intermediate accountant (current) drug therapyOther muscle spasmOpioid use, unspecified, uncomplicatedChronic obstructive pulmonary disease, unspecifiedOther problems related to medical facilities and other health careUrinary tract infection, site not specifiedNauseaPersonal history of nicotine dependence Estab. patient 30-39min; chronic exacerbation, 2 stable chronic or 1 acute illness add add modifier 95 for video, (do not use for phone, instead use 57620-61) [facility]19[place] Estab. patient 30-39min; chronic exacerbation, 2 stable chronic or 1 acute illness add add modifier 95 for video, (do not use for phone, instead use 00413-78) [facility]19[place]20[place] Estab. patient 30-39min; chronic exacerbation, 2 stable chronic or 1 acute illness add add modifier 95 for video, (do not use for phone, instead use 48050-20) [facility]19[place]20[place] Estab. patient 30-39min; chronic exacerbation, 2 stable chronic or 1 acute illness add add modifier 95 for video, (do not use for phone, instead use 47082-99) [facility]19[place]20[place] Estab. patient 30-39min; chronic exacerbation, 2 stable chronic or 1 acute illness add add modifier 95 for video, (do not use for phone, instead use 20334-82) [facility] Estab. patient 30-39min; chronic exacerbation, 2 stable chronic or 1 acute illness add add modifier 95 for video, (do not use for phone, instead use 82480-10) [facility] Estab. patient 30-39min; chronic exacerbation, 2 stable chronic or 1 acute illness add add modifier 95 for video, (do not use for phone, instead use 25049-78) [facility] Estab. patient 30-39min; chronic exacerbation, 2 stable chronic or 1 acute illness add add modifier 95 for video, (do not use for phone, instead use 17018-89) [facility]19[place] Estab. patient 30-39min; chronic exacerbation, 2 stable chronic or 1 acute illness add add modifier 95 for video, (do not use for phone, instead use 31421-38) [facility] No Data Available [facility]2023 Sacroiliitis, not elsewhere classifiedDorsalgia, unspecifiedOther chronic painOther muscle spasmOpioid use, unspecified, uncomplicatedUrinary tract infection, site not specifiedNausea No Data Available [facility]2023 No Data Available [facility] No Data Available [facility] No Data Available [facility]20[place] Dorsalgia, unspecifiedOther chronic painSacroiliitis, not elsewhere classifiedOther muscle spasmOpioid use, unspecified, uncomplicatedUrinary tract infection, site not specifiedNauseaOther problems related to medical facilities and other health care No Data Available [facility]2023 No Data Available [facility]/2024 Dorsalgia, unspecifiedOther problems related to medical facilities and other health careOther chronic painSacroiliitis, not elsewhere classifiedOther muscle spasmOpioid use, unspecified, uncomplicated No Data Available [facility] Estab. patient 10-29min; 1 minor problem; add add modifier 95 for video, modifier 93 for phone [facility]2024 Chronic obstructive pulmonar y disease, unspecifiedDorsalgia, unspecifiedOther chronic painSacroiliitis, not elsewhere classifiedOther muscle spasmOpioid use, unspecified, uncomplicatedOther problems related to medical facilities and other health care Estab. patient 10-29min; 1 minor problem; add add modifier 95 for video, modifier 93 for phone [facility]/20[place] Estab. patient 10-29min; 1 minor problem; add add modifier 95 for video, modifier 93 for phone [facility]/20[place] Estab. patient 10-29min; 1 minor problem; add add modifier 95 for video, modifier 93 for phone [facility] 03/04/2024 Acute upper respiratory infection, [...] tive Time Current Smoking Status Former smoker 7 Sex Female History of Procedures Procedures Service Procedure code Service date Servicing provider Phone# New patient,40-59min; chronic exacerbation, 2 stable chronic or 1 acute illness add add modifier 95 for video (do not use for phone, instead use 08940-09) [id number] 2021-12-30 No Data Available No Data Availa ble Medication Review by prescribing provider or pharmacist documented (1160F) 1160F 2021-12-30 No Data Available No Data Cecilia ilable Functional Status Assessed (1170F) 1170F 2021-12-30 No Data Available No Data Avail able Advance Care Directive Advance care planning discussion documented in the medical record (1158F) 1158F 2021-12-30 No Data Available No Data [...] (do not use for phone, instead use 49110-74) 13730 2023-01-26 No Data Available No Data Availa [...] (do not use for phone, instead use 08001-74) 10969 2023-02-03 No Data Available No Data Availa [...] No Data Cecilia ilable No Data Available [id number] 2023-08-10 No Data Available No Data Available Medication List Documented (1159F) 1159F 2023-08-10 No Data Available No Data Cecilia ilable No Data Available [id number] 2023-08-24 No Data Available No Data Available SBP < 130 (3074F) 3074F 2023-08-24 No Data Available No Data Available DBP 80-89 (3079F) 3079F 2023-08-24 No Data Available No Data Available No Data Available 2023-09-01 No Data Available No Data Available No Data Available 2023-10-11 No Data Available No Data Available SBP >= 140 3077F 2023-10-11 No Data Available No Data Available DBP >=90 3080F 2023-10-11 No Data Available No Data Available Estab. patient 30-39min; chronic exacerbation, 2 stable chronic or 1 acute illness add add modifier 95 for video, (do not use for phone, instead use 18793-50) 48661 2023-10-19 No Data Available No Data Availa [...] No Data Availa ble No Data Available [id number] 2023-11-20 No Data Available No Data Available Medication List Documented (1159F) 1159F 2023-11-20 No Data Available No Data Cecilia ilable SBP < 130 (3074F) 3074F 2023-11-20 No Data Available No Data Available DBP 80-89 (3079F) 3079F 2023-11-20 No Data Available No Data Available No Data Available [id number] 2023-11-22 No Data Available No Data Available Medication List Documented (1159F) 1159F 2023-11-22 No Data Available No Data Cecilia ilable No Data Available [id number] 2024-01-09 No Data Available No Data Available Medication List Documented (1159F) 1159F 2024-01-09 No Data Available No Data Cecilia ilable Estab. patient 10-29min; 1 minor problem; add add modifier 95 for video, modifier 93 for phone 97493 2024-02-20 No Data Available No Data Availa ble Medication List Documented (1159F) 1159F 2024-02-20 No Data Available No Data Cecilia ilable BMI obtained (3008F) 3008F 2024-02-20 No Data Availab le No Data Available Estab. patient 10-29min; 1 minor problem; add add modifier 95 for video, modifier 93 for phone [id number] 2024-03-04 No Data Available No Data Availa [...] 2023-10-11 10:54:55 Follow up plan for jordyn figueroa symptoms:UTI (urinary tract infection)Nausea 2023-10-19 12:15:00 Chronic [...] orally BID PRN muscle spasms/pain #30 tablet FPx3kZr New Tylenol Extra Strength 500 mg Tab 2 tablet orally q 6hrs prn pain/fever #30 tablet MFx0zHb New Diclofenac Sodium 1 % Gel 4 grams topically to affected area 4 times per day PRN #100 gram OMc3qKt New Lidocaine 5 % Oint apply thin film to affected area TID prn pain #50 gram GIy0gWp New predniSONE 20 mg Tab Take 2 tablets twice daily for 3 days, 1 tablet twice daily for 2 days, and 1 tablet daily for 2 days. #18 tab EEl7ywyvpnvp plan of care and conservative measures for [...] low abd pain. [facility]. Follow-up with [facility] as needed for any acute or disease education needs that may arise 06/09.UTI (urinary tract infection)Zfmzqk7610/11/2023eRx New Tylenol Extra Strength 500 mg Tab 2 tablet orally Q6hrs prn pain/fever #30 tablet NAf5iNs New Ondansetron 8 mg Tab Disintegrating 1 tablet orally every 8 hours as needed nausea #30 tablet NBd8kFq New Macrobid 100 mg Cap Take 1 [...] sedationFor many years.Now at pain clinic in [facility], began seeing them on 12/07.On TramadolTizanindineGabapentinClonazepamTramadolTizanindineGabapentinClonazepa 06:13:17 Medication Review by prescribing provide r [...] sedationFor many years.Now at pain clinic in [facility], began seeing them on 12/07.On TramadolTizanindineGabapentinClonazepamTramadolTizanindineGabapentinClonazepa malbuterol [...] sedationFor many years.Now at pain clinic in [facility], began seeing them on 12/07.On QdbbzbeuEfpqkadejdwFkloqpwtujAgntixshka35/21/2023ontinues with pain, poor historian, unclear how much pain she is having today, appears to be active but tcpsipQhjcgrqcPpaqasrmevuMmuiuqmmalNbysvphsvb31/21/2023ontinues with pain, pls cont tx as prescribed, [...] + days. Inhaler puffer 4/ day for ivcqwttbyrmxpgd79/21/2023Very difficult to assess. Not a relieble historian, [...] modifier 95)Continue to see PCP. Follow-up with [facility] as needed for any acute or disease [...] + days. Inhaler puffer 4/ day for utmuocihxnhahrn45/21/2023Very difficult to assess. Not a relieble historian, [...] inhalers/nebs.We will F/U next week.02/10 stable has bififrakXljcioglBvafixlvrvxOdtveljzlpAnabhwhnfc81/21/2023Continues with pain, pls cont tx as prescribed, reports she was told that PT was not viable. Will investigate.02/10 has had this for years, will refer to neurologist, denies any bowel or bladder dysfunctionFor many years.Now at pain clinic in [facility], began seeing them on 12/07.On WamsxgebCxrpvrtpwcoDyxnvekxwvIdpspvrxqd62/21/2023ontinues with pain, poor historian, unclear how much pain she is having today, appears to be active but xgdnac82/28 for many years will refer to neurologist [...] orally BID PRN muscle spasms/pain #30 tablet WYg1kEv New Tylenol Extra Strength 500 mg Tab 2 tablet orally q 6hrs prn pain/fever #30 tablet XBs5fXa New Diclofenac Sodium 1 % Gel 4 grams topically to affected area 4 times per day PRN #100 gram AYq4rXm New Lidocaine 5 % Oint apply thin film to affected area TID prn pain #50 gram MRq4sAg New predniSONE 20 mg Tab Take 2 tablets twice daily for 3 days, 1 tablet twice daily for 2 days, and 1 tablet daily for 2 days. #18 tab ROj6gwyovoes plan of care and conservative measures for [...] low abd pain. [facility]. Follow-up with [facility] as [...] tablet orally Q6hrs prn pain/fever #30 tablet YJx8kVg New Ondansetron 8 mg Tab Disintegrating 1 tablet orally every 8 hours as needed nausea #30 tablet AGy6cJk New Macrobid 100 mg Cap Take 1 [...] <80 (3078F)Continue to see PCP. Follow-up with [facility] as [...] orally BID PRN muscle spasms/pain #30 tablet TIi3aPv New Tylenol Extra Strength 500 mg Tab 2 tablet orally q 6hrs prn pain/fever #30 tablet MJm7tKz New Diclofenac Sodium 1 % Gel 4 grams topically to affected area 4 times per day PRN #100 gram EEn9pNh New Lidocaine 5 % Oint apply thin film to affected area TID prn pain #50 gram ZDb2fOr New predniSONE 20 mg Tab Take 2 tablets twice daily for 3 days, 1 tablet twice daily for 2 days, and 1 tablet daily for 2 days. #18 tab UQq7rspsdamw plan of care and conservative measures for [...] tablet orally Q6hrs prn pain/fever #30 tablet UBs1kCc New Ondansetron 8 mg Tab Disintegrating 1 tablet orally every 8 hours as needed nausea #30 tablet GYe6sFl New Macrobid 100 mg Cap Take 1 [...] orally BID PRN muscle spasms/pain #30 tablet ZJp3sBt New Tylenol Extra Strength 500 mg Tab 2 tablet orally q 6hrs prn pain/fever #30 tablet DFd9gHr New Diclofenac Sodium 1 % Gel 4 grams topically to affected area 4 times per day PRN #100 gram JIi5zHq New Lidocaine 5 % Oint apply thin film to affected area TID prn pain #50 gram LKf7aDw New predniSONE 20 mg Tab Take 2 tablets twice daily for 3 days, 1 tablet twice daily for 2 days, and 1 tablet daily for 2 days. #18 tab XHa7cdrashcy plan of care and conservative measures for [...] tablet orally Q6hrs prn pain/fever #30 tablet GOn8yNs New Ondansetron 8 mg Tab Disintegrating 1 tablet orally every 8 hours as needed nausea #30 tablet EPs7tQz New Macrobid 100 mg Cap Take 1 tablet PO twice daily for 7 days. #14 tablet RFx10/19/23: Improved per pt, denies ss today. 11/20/23:Member describing dysuria and recurrent UTI symptomsStart bactrim DS BID x 5 daysEncouraged increased fluid intake, especially waterAPP f/u is scheduled for 11/21 regarding back symptoms, but can call back sooner for any new or worsened pworpdet36/8/24: Symptoms began 2 days ago on Tuesday. [...] low abd pain. Please remember to call [facility] to see PCP. Follow-up with [facility] [...] orally BID PRN muscle spasms/pain #30 tablet TJv8sBh New Tylenol Extra Strength 500 mg Tab 2 tablet orally q 6hrs prn pain/fever #30 tablet QQt9rNh New Diclofenac Sodium 1 % Gel 4 grams topically to affected area 4 times per day PRN #100 gram OKo2zKo New Lidocaine 5 % Oint apply thin film to affected area TID prn pain #50 gram GMz5hFy New predniSONE 20 mg Tab Take 2 tablets twice daily for 3 days, 1 tablet twice daily for 2 days, and 1 tablet daily for 2 days. #18 tab YOn3rflnjwvn plan of care and conservative measures for [...] low abd pain. Please remember to call [facility] to see PCP. Follow-up with [facility] [...] orally BID PRN muscle spasms/pain #30 tablet XXf8jFc New Tylenol Extra Strength 500 mg Tab 2 tablet orally q 6hrs prn pain/fever #30 tablet ZDa8pDx New Diclofenac Sodium 1 % Gel 4 grams topically to affected area 4 times per day PRN #100 gram DZk2fBz New Lidocaine 5 % Oint apply thin film to affected area TID prn pain #50 gram YIw3cOp New predniSONE 20 mg Tab Take 2 tablets twice daily for 3 days, 1 tablet twice daily for 2 days, and 1 tablet daily for 2 days. #18 tab XOe3idssaadf plan of care and conservative measures for [...] 45 tabs. Will refill rx, sent to [facility].When member to call: 1. If bp is elevated sbp>150; dbp>90 or symptomatic-h/a, dizziness, cp, sob. 2. if there is a fall 3. if BS >300 or BS<90 or symptomatic; i.e., dizzy, off balance , shaky, general weakness. 4. if UTI symptoms arise-urinary frequency, dysuria, low abd pain. [facility]. [facility]-up with [facility] as needed for any acute or disease education needs that may arise 06/09. 12:47:32 Televideo 10-29min; 1 minor problem; add add modifier 95 for video, modifier 93 for phoneContinue to see PCP. Follow-up with [facility] as needed for any acute or disease education needs that may arise 06/09.03/04/24- Azelastine 0.1 % Solution Nasal use 2 sprays in each nostril twice daily #1 each DWb2Sonfib Promethazine-DM 6.25/15 mg/5ML Syrup 5 ml orally every 4-6 hours as needed for cough #200 ml PIl5Vqn use cool mist vaporizer/humidifier next to bed [...]
== END 2024-04-20 15:27 | disposition home or self-care (01) ==
LOC: HO.CT 15:26
PROVIDERS: PCP Internal Medicine
DX: H92.01 Otalgia, right ear (principal)
CPT/HCPCS: 70481

== ENCOUNTER → 2024-04-20 15:28 | Outpatient (BNV) | payer OTHER, SELFPAY | PROVIDERS: PCP Internal Medicine; Visit Provider Radiology Diagnostic Radiology | DX: M26.641 Arthritis of right temporomandibular joint (principal) | CPT/HCPCS: 70481 ==

== ENCOUNTER 2024-04-26 08:50 | Outpatient (AMB) | payer OTHER, SELFPAY ==
[2024-04-26 08:53] VITALS: BP 118/76; PULSE 87; O2SAT 99; BMI 28.4
--- NOTE | 2024-04-26 08:53 | A.OFFVIS_ITS ---
Vital Signs 04/26/24 08:53 Height 5 ft Weight 145 lb 8.081 oz BMI 28.4 BP 118/76 Blood Pressure Location Rt brachial Position Sitting Pulse 87 Pulse Source Pulse Oximeter Pulse Oximetry (%) 99 Oxygen Delivery Method Room Air Intake Visit Reasons: Obstructive sleep apnea Allergies naproxen Allergy (Intermediate, Verified 04/10/24 10:11) abdominal pain ibuprofen [From Motrin] Adverse Reaction (Mild, Verified 04/10/24 10:11) stomach pain HPI Comments Details: The patient is a 73-year-old woman who apparently was in usual state health until back in beginning of the year she was evaluated at an outside hospital. There was a question of pulmonary emboli she ended up undergoing for CTA. The CTA demonstrated apparently some emphysema. Although, I could not find the actual report. Clinically, however the patient has been doing well denies any significant shortness of breath denies any significant coughing. She was a smoker but she quit many years ago. On further questioning she states that her mother also of emphysema although she was not a nonsmoker. She also had another sibling that develop significant emphysema as well. Therefore we did do a full 1 antitrypsin deficiency. Testing today. Should patient will also need PFTs. Clinically patient is doing well she that she does not need any inhaler therapy at this time. Her major complaint is really TMJ. She is having some discomfort on the right TMJ area. Her still open up her mouth to clench her teeth and touch the area. I did print her out some exercises for that. If the patient is no better she should follow-up with her primary care doctor regarding that issue. 12/06/2022 the patient is here for a pulmonary follow-up visit. She still complains of dyspnea on exertion. Sometimes she feels that she cannot take a deep breath in. The patient did have pulmonary function studies that I personally reviewed with her. 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 Also decreased diffusing capacity. Will go ahead and request a chest x-ray. If the x-ray is abnormal she is going to need additional testing such as a CT scan. She has all sorts of elements. The patient also complains of difficulty moving her right hand because numbness of her thumb area and pain as well. She has a hard time holding on to a cough because of the discomfort. She has been having this for now for several weeks. 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 In the meantime I do believe that because of the limitations will be reasonable for her to see orthopedic surgery for the right hand specially since his is limiting her ability to perform her activities of daily living. 02/25/2023 the patient is here for pulmonary follow-up visit. The patient is complaining of worsening shortness breath specially at nighttime. She states that sometimes is pretty significant. Has a hard time sleeping because of it. Sometimes she wakes up from a sound sleep. Moderate severity. She was given levo albuterol solution for the nebulizer and this does help her. She also has a rescue inhaler. The patient did have PFTs back in October and at that point she did have a significant reversible obstruction consistent with asthma. Therefore, placed on a maintenance inhaler Breo 200. She can uses once a day and she should rinse her mouth. I did teach how to use it. The patient also is having issues at nighttime when she wakes up with shortness of breath. Indeed she does have daytime drowsiness with an elevated [place] score of 11/24. In view of her ongoing symptoms doing a home sleep study will be also important to rule out underlying sleep apnea. I did review her chest x-ray that she had in the fall 2022 demonstrating some minimal atelectasis. Otherwise no active lung disease appreciated. 06/20/2023 the patient is here for pulmonary follow-up visit. Overall the patient has been doing well. She continues have daytime drowsiness. Her [place] score still elevated 9/24. She did have sleep study that was very reassuring. No evidence of any sleep apnea and no evidence of any hypoxia. The patient has been concerned about lower extremity edema. She does have some liver cirrhosis. Liver functions are normal. I did reassure her. Her breathing is okay. She does continue to use the Breo daily. The patient is also complaining of episodic chest discomfort. She describes like a pressure sensation in the substernal area. Usvy-qc-rthpcqab severity. Right now she does not have it. She has not seen Cardiology. I did request she get an EKG at this time start taking a baby aspirin. Will have her referred to Cardiology so she can be evaluated from a cardiac standpoint. The patient also should use her rescue inhaler she feels that sensation. 12/26/2023 the patient is here for a pulmonary follow-up visit. Overall the patient has been still complaining of similar symptoms. Can not daytime drowsiness fatigue. Her Springfield score is elevated 11/24. She did have a sleep study although was not helpful because she had a hard time with the study and she felt like the cannula was coming her nose. In view of her significant daytime drowsiness and her comorbidities will go ahead and request an in-lab sleep study this time. She has been evaluated from a cardiac standpoint. She did have a CTA of the coronary arteries demonstrating some mild CAD. She will follow-up with cardiology soon. In the meantime she continues have significant musculoskeletal discomfort. Could be fibromyalgia could be some arthritis. She found to have some lesion fingers in the question of psoriasis did come up. At this point the patient needs to be seen by Rheumatology as she may have likely a more systemic manifestation of a inflammatory musculoskeletal disease. In the meantime for respiratory symptoms will try Daliresp to try to help her decrease inflammation of the airways her chronic bronchitis and also indeed may have some affect with inflammatory disease since it is a PD4 inhibitor. 04/26/2024 the patient is here for a pulmonary follow-up visit. She continues to have significant amount of discomfort. Multiple joints. She does have a rheumatology appointment coming up soon. She did try the PD for inhibitor. Does not seem to be of any help. She also has difficulty sleeping and also daytime drowsiness. Springfield score is elevated 11/24. She did have a in-lab sleep study scheduled but not clear if she did not have the information. Will going to have to have her call to reschedule it. Her breathing is stable. She did have a CT scan of the chest which is reassuring. It was personally by me. Pulmonary nodules have stable and actually 1 of the new nodular densities resolved. Therefore will follow-up the nodules in a year. [facility] Medical History Chest pain Blurry vision Abnormal chest x-ray Pre-op examination Emphysema of lung Thoracic back pain Physical exam Muscle spasm Back pain Chronic restrictive lung disease Temporomandibular joint (TMJ) pain Anemia Osteopenia Postmenopausal Obese Chronic pain syndrome Hypovitaminosis D Depression with anxiety Surgical History H/O colonoscopy S/P FARRAH-BSO (total abdominal hysterectomy and bilateral salpingo-oophorectomy) Family History Father No problems noted. Mother Emphysema lung Sister Colon cancer Social History Housing: Apartment Alcohol intake: never Patient Tobacco Use Status: Former Tobacco user Tobacco use type: Cigarette e-Cigarette/Vaping Use: Never Used Second Hand Smoke Exposure: No Advance Directives Date on File: 01/12/22 service: No Current occupational status: unemployed Cognitive needs: Yes Hearing needs: No Vision needs: No Review of Systems Const Denies fatigue and Denies fever(s) Eyes Denies change in vision ENT Reports mouth pain Card Denies chest pain, Reports leg edema and Denies dyspnea on exertion Resp Denies cough, Denies dyspnea on exertion and Denies wheezing GI Denies abdominal pain Musc Reports as per HPI, Reports myalgias, Reports arthralgias, Reports limited range of motion, Reports numbness, Reports stiffness and Reports tingling Skin/Breast Denies rash Neuro Reports no additional complaints, Reports numbness and Reports tingling Endo Denies fatigue Mateusz/Lymph Denies lymphadenopathy Aller/Immun Denies wheezing Physical Exam Vital Signs: Last Vital Signs Pulse 87 04/26/24 08:53 BP 118/76 04/26/24 08:53 Pulse Ox 99 04/26/24 08:53 Oxygen Delivery Method Room Air 04/26/24 08:53 BMI result Body Mass Index 28.4 Const General: cooperative HEENT Head: Yes atraumatic Neck Neck: Yes supple Chest Chest palpation & inspection: normal inspection of the chest Resp Effort & Inspection: normal respiratory effort Auscultation: clear to auscultation bilaterally Cardio Rate: regular rate Rhythm: regular rhythm Heart sounds: S1 normal heart sound present and S2 normal heart sound present GI Palpation (GI): Soft to palpation Skin General skin exam: no rashes or lesions noted Extrem General: Yes no clubbing, cyanosis or edema Assessment & Plan Assessment & Plan (1) Emphysema of lung: Code(s): J43.9 - Emphysema, unspecified Category: Medical Qualifiers: Emphysema type: centrilobular Qualified Code(s): J43.2 - Centrilobular emphysema (2) Chronic restrictive lung disease: Code(s): J98.4 - Other disorders of lung Category: Medical (3) Chest pain: Code(s): R07.9 - Chest pain, unspecified Category: Medical Qualifiers: Chest pain type: unspecified Qualified Code(s): R07.9 - Chest pain, unspecified (4) MULUGETA (obstructive sleep apnea): Code(s): G47.33 - Obstructive sleep apnea (adult) (pediatric) Category: Medical (5) Psoriasis and similar disorder: Comment: ? psoriatic patches on elbows and fingertips Code(s): L40.9 - Psoriasis, unspecified Category: Medical Plan continue Breo JCARLOS as needed DAliresp 500mcg daily in lab PSG, needs to schedule Rheumatology referral ?FM versus psoriasis F/U 4-6 months Orders: Orders RT PSG in-lab sleep study Today G47.33 - Obstructive sleep apnea (adult) (pediatric) Medications: New prednisone 20 mg PO DAILY 5 tabs 0RF 5 days Coding Level of Care Code Est Pt Level 4 (59249) Complex EM visit Add On G2211 Diagnoses Centrilobular emphysema J43.2 Emphysema type: centrilobular Chronic restrictive lung disease J98.4 Chest pain, unspecified type R07.9 Chest pain type: unspecified MULUGETA (obstructive sleep apnea) G47.33 Psoriasis and similar disorder L40.9 Time Spent (min) 17
== END 2024-04-26 09:11 | disposition home or self-care (01) ==
LOC: HO.HPS 08:50
PROVIDERS: PCP Internal Medicine; Visit Provider Hospitalist
DX: J43.2 Centrilobular emphysema (principal); J98.4 Other disorders of lung; R07.9 Chest pain, unspecified; G47.33 Obstructive sleep apnea (adult) (pediatric); L40.9 Psoriasis, unspecified
CPT/HCPCS: 99214; G2211

== ENCOUNTER → 2024-04-26 08:50 | Outpatient (BNVA) | payer OTHER, SELFPAY | PROVIDERS: PCP Internal Medicine; Visit Provider Hospitalist | DX: J43.2 Centrilobular emphysema (principal); J98.4 Other disorders of lung; G47.33 Obstructive sleep apnea (adult) (pediatric); R07.9 Chest pain, unspecified; L40.9 Psoriasis, unspecified; Z83.6 Family history of other diseases of the respiratory system; Z87.891 Personal history of nicotine dependence | CPT/HCPCS: 99212 ==

== ENCOUNTER 2024-05-04 09:15 | Outpatient (AMB) | payer OTHER, SELFPAY ==
--- NOTE | 2024-05-04 09:48 | A.OFFVIS_ITS ---
Vital Signs 05/04/24 09:50 Height 5 ft Weight 144 lb 2.917 oz BMI 28.2 BP 122/76 Blood Pressure Location Lt brachial Position Sitting Pulse 78 Pulse Source Pulse Oximeter Pulse Oximetry (%) 96 Oxygen Delivery Method Room Air Intake Visit Reasons: Psoriasis Intake Note: New patient internally referred by Bear Rao, [facility] Pulmonology. Presents today for Psoriasis. Patient states she has pain in right hand for 3 weeks. She has been trying her Tramadol for the pain, but it's not working. Accompanied by: Daughter Allergies naproxen Allergy (Intermediate, Verified 05/04/24 09:53) abdominal pain ibuprofen [From Motrin] Adverse Reaction (Mild, Verified 05/04/24 09:53) stomach pain HPI Comments Details: Patient is a 73-year-old female with obstructive sleep apnea, bilateral carpal tunnel, spinal osteoarthritis with DISH, polyarticular OA, emphysema, liver cirrhosis, depression with anxiety and psoriasis here today for evaluation of polyarthralgias Here today with daughter complaining of right hand pain. Three week history of pain to the right hand No antecedent trauma At the base of the thumb [facility] Medical History Chest pain Blurry vision Abnormal chest x-ray Pre-op examination Emphysema of lung Thoracic back pain Physical exam Muscle spasm Back pain Chronic restrictive lung disease Temporomandibular joint (TMJ) pain Anemia Osteopenia Postmenopausal Obese Chronic pain syndrome Hypovitaminosis D Depression with anxiety Surgical History H/O colonoscopy S/P FARRAH-BSO (total abdominal hysterectomy and bilateral salpingo-oophorectomy) Family History Father No problems noted. Mother Emphysema lung Sister Colon cancer Social History Housing: Apartment Alcohol intake: never Patient Tobacco Use Status: Former Tobacco user Tobacco use type: Cigarette e-Cigarette/Vaping Use: Never Used Second Hand Smoke Exposure: No Advance Directives Date on File: 01/12/22 service: No Current occupational status: unemployed Cognitive needs: Yes Hearing needs: No Vision needs: No Review of Systems Const Details: Review of Systems Constitutional: Denies fever, chills, weight loss ENT: Denies vision changes, eye pain or eye redness, dental caries, dry mouth GI: Denies nausea, vomiting, diarrhea, abdominal pain, change in BM Pulm: Denies SOB, [place], hemoptysis, wheezing Cards: Denies chest pain, palpitations Skin: Denies Raynaud's, rash, nail changes, photosensitivity, 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 Well appearing and in no apparent painful distress HEENT Conjunctiva and sclera clear. ?Pupils equal round and reactive to light. ?No lymphadenopathy. ? CHEST/RESPIRATORY SYSTEM Normal respiratory effort and able to speak in complete sentences. ?Clear to auscultation bilaterally. ?No crackles, rales, rhonchi, wheezes heard. CARDIAC SYSTEM Regular rate and rhythm. ?S1 and S2 heard no murmurs. ?Radial pulses intact bilaterally MSK Hands: ?Patient holding her right hand because of pain. Heberden's nodes noted throughout. No synovitis noted to the MCPs, PIPs or DIPs. Tenderness to palpation of the 1st CMCs bilaterally right worse than left. Wrists: ?Full range of motion at the wrists without pain. ?No tenderness to palpation or synovitis noted to the wrists. Elbows: Full range of motion without pain. No tenderness, weakness, swelling, increased warmth or erythema. Shoulders: Full range of motion without pain. No tenderness, weakness, swelling, increased warmth or erythema. Knees: ?Full range of motion. ?No tenderness, swelling, increased warmth or erythema.? Bilateral crepitations felt Ankles: Full range of motion. ?No tenderness, swelling, increased warmth or erythema.? Feet: ?Negative squeeze test. ?No tenderness to palpation or swelling of the MTPs. Tender points:?Tenderness to palpation of the bilateral trapezius, s upraspinatus, bilateral gluteal areas, bilateral suboccipital muscle insertions SKIN Skin intact without rashes. Office Procedures AMB Joint Injection/Aspiration Joint Injection/Aspiration Details: Procedure was explained to the patient and consent was obtained. ? The area of interest was identified and confirmed with patient. ?This was subsequently cleaned with chlorhexidine x3. ? The area was then anesthetized using ethyl chloride spray. 20 mg Kenalog with 0.1 cc 1% lidocaine was injected without issue. ?Minimal to no bleeding. ?Patient tolerated procedure. Primary Site: right thumb (Right 1st CMC) Prep: site was prepped using aseptic technique and ethochloride spray was applied Injected: 20 mg of, Kenalog and 1% plain lidocaine Procedure: The patient tolerated the procedure well Coding - Small Joint Procedure code (CPT) selection complete AMB Joint Injection/Aspiration Joint Injection/Aspiration Details: See documented procedure below Coding 50579 - Small Joint Procedure code (CPT) selection complete Office Meds lidocaine (PF) 10 mg/mL (1 %) injection solution Performing Provider: Dominique Todd MD Performing Location: [facility] Rheumatology Administered by: Dominique Todd MD on 05/04/24 10:41 Dose Route Admin Location Dispensed Lot Number Expiration Date [facility] Label Stamper 0.1 mL Infiltration right 1st CMC 2 mL [id number] 05/15/26 98975-584-77 [facility] Kenalog 40 mg/mL suspension for injection Performing Provider: Dominique Todd MD Performing Location: [facility] Rheumatology Administered by: Dominique Todd MD on 05/04/24 10:41 Dose Route Admin Location Dispensed Lot Number Expiration Date [facility] Label Stamper 20 mg intra-articular right 1st CMC 1 mL [id number] 08/14/25 [address]-2 [employer] Results Reviewed Results Reviewed: Most recent lab is from a year ago 05/13/2023 Lab work unremarkable Assessment & Plan Assessment & Plan (1) Osteoarthritis of hands, bilateral: Code(s): M19.041 - Primary osteoarthritis, right hand; M19.042 - Primary osteoarthritis, left hand Qualifiers: Osteoarthritis type: primary Qualified Code(s): M19.041 - Primary osteoarthritis, right hand; M19.042 - Primary osteoarthritis, left hand Plan: #Bilateral Hand OA Patient with polyarticular osteoarthritis but today's complaining of exquisite pain to the base of the right thumb. Discussed with patient and daughter that she has osteoarthritis which does not have a cure. Recommended her to continue the topical diclofenac Steroid injection to the 1st CMC joint done Plan - s/p steroid injection - RTC 6 months Plan I spent 36 minutes reviewing the record and labs, taking a history, examining the patient, discussing the treatment plan, ordering diagnostic work up and documenting in the medical record Orders: Orders AMB Joint Injection/Aspiration Today M19.041 - Primary osteoarthritis, right hand, M19.042 - Primary osteoarthritis, left hand Medications: New lidocaine (PF) 0.1 mL Infiltration ONCE 2 mL 0RF M19.041 - Primary osteoarthritis, right hand, M19.042 - Primary osteoarthritis, left hand Kenalog (triamcinolone acetonide) 20 mg (0.5 mL) intra-articular ONCE 0.5 mL 0RF NS M19.041 - Primary osteoarthritis, right hand, M19.042 - Primary osteoarthritis, left hand Coding Level of Care Code New Pt Level 3 (82394) Diagnoses Primary osteoarthritis of both hands M19.041; M19.042 Osteoarthritis type: primary CPT Codes Coding - 94112 - Small joint: 22247 - Small Joint ([id number]) Coding - 05964 - Small joint: 09664 - Small Joint ([id number])
[2024-05-04 09:50] VITALS: BP 122/76; PULSE 78; O2SAT 96; BMI 28.2
== END 2024-05-04 10:44 | disposition home or self-care (01) ==
LOC: HO.RHE 09:16
PROVIDERS: PCP Internal Medicine; Visit Provider Student in an Organized Health Care Education/Training Program
DX: M19.041 Primary osteoarthritis, right hand (principal); M19.042 Primary osteoarthritis, left hand; M18.11 Unilateral primary osteoarthritis of first carpometacarpal joint, right hand
CPT/HCPCS: 20600; 99203

== ENCOUNTER → 2024-05-04 09:15 | Outpatient (BNVA) | payer OTHER, SELFPAY | PROVIDERS: PCP Internal Medicine; Visit Provider Student in an Organized Health Care Education/Training Program | DX: M19.041 Primary osteoarthritis, right hand (principal); M19.042 Primary osteoarthritis, left hand | CPT/HCPCS: 20600; 99202; J3300 ==

== ENCOUNTER 2024-06-05 08:39 | Outpatient (REF) | payer OTHER, SELFPAY ==
--- OUTSIDE RECORDS SUMMARY | 2024-06-05 09:00 | XMS_ITS ---
Author Name Nia Holley NP Address [address] [place] [address] Phone [phone] [facility] Care Team Providers Care Communications Marketing Intern Name Role Phone Nia Holley Unavailable [phone] Colette Esteves Unavailable [phone] Unavailable Unavailable Unavailable SUSAN IBARRA Unavailable [phone] Unavailable Unavailable [phone] Reason for Referral Not Available Allergies, adverse [...] TABLET BY M OUTH TWICE DAILY 2021-07-16 2024-04-26 VITAMIN D3 2000UNIT CAPSULES TAKE 1 CAPS ULE BY MOUTH DAILY 2021-09-16 2024-04-26 tiZANidine 2 mg Tab TAKE 1 TABLET [...] TE ST KIT TEST DIRECTED TODAY 2022-10-26 2024-04-26 PEG 3350-KCl-Na Bicarb-NaCl 420 GM Solution No [...] VIA NEBULIZER EVERY 4 HOURS NEEDED 2023-01-26 2024-04-26 Albuterol Sulfate HFA 108 (9 0 Base) [...] tablet orally q 6hrs prn pain/fever 2023-08-10 2024-04-26 Cyclobenzaprine 10 mg Tab 1 tablet orall y BID PRN muscle spasms/pain 2023-08-10 2024-04-26 Azithromycin 250 mg Tab Take 2 tablets P O on day 1, then 1 tablet PO on days 2-5 2023-08-24 2024-03-04 Polymyxin B-Trimethoprim 35918-4.1 UNIT/ML-% Solution Ophthalmic 1 drop ophthalmically into both eyes 4 times per day for 5 days 2023-08-24 2024-04-26 Cetirizine 10 mg Tab TOME 1 TABLETA POR V A ORAL TODOS LOS D NEEDED FOR ALLERGY SYMPTOMS FOR 90 DAYS 2023-07-27 No Data Available Macrobid 100 mg Cap Take 1 tablet PO twi ce daily for 7 days. 2023-10-11 2024-04-26 Ondansetron 8 mg Tab Disintegrating 1 tablet [...] twice tiny y for 5 days 2023-11-20 2024-04-26 Bactrim DS 800/160 mg Tab Take 1 tablet PO twice daily for 5 days. 2023-11-20 2024-04-26 Tylenol Extra Strength 500 m g Tab Take 2 tablet PO Q8H PRN for pain 2023-11-20 2024-04-26 Lidoderm 5 % Patch 1 patch topically to affected area daily remove after 12 hours 2023-11-22 No Data Available Roflumilast 500 MCG Tab TAKE 1 TABLET BY MOUTH DAILY 2023-12-26 No Data Available Pregabalin 100 mg Cap TAKE 1 CAPSULE BY MOUTH AT BEDTIME 2024-01-09 2024-04-26 Azelastine 0.1 % Solution Nasal use 2 sprays in each nostril twice daily 2024-03-04 No Data Available Amoxicillin-Pot Clavulanate 875/125 mg Tab TAKE 1 TABLET BY MOUTH TWICE DAILY 2024-04-10 No Data Available Yxgxbymg-Nzxmzcumg-WJ 3.5-42635-7 Suspension SHAKE LIQUID AND INSTILL 4 DROPS TO RIGHT EAR EVERY 8 HOURS FOR 1 WEEK 2024-04-10 No Data Available traMADol 50 mg Tab 1 tablet orally tiny y as needed at bedtime 2024-04-26 No Data Available Problem List Problem Status Onset Date Resolved Date Chronic prescription benzodiazepine use Active 2 N/A UTI (urinary tract infection)Nausea Resolved 10-102024-04-26 URI (upper respiratory infection) Active 2023-08 N/A Cough Resolved 2023-01-26 2024-04-26 COPD (chronic obstructive pulmonary disease) Active 2023-01-26 N/A Other problems related to mt dical facilities and other health care Active 2023-09-01 N/A Chronic back pain greater th an 3 months durationBilateral sacroiliitisMuscle spasms of both lower extremitiesOpioid use Active 2021-12-30 N/A Encounters Encounters Type Facility Date of Service Diagnosis/Co mplaint New patient,40-59min; chronic exacerbation, 2 stable chronic or 1 acute illness add add modifier 95 for video (do not use for phone, instead use 54401-16) [facility] Opioid dependence, uncomplicatedLong term (current) use of opiate analgesicSedative, hypnotic or anxiolytic dependence, uncomplicatedDorsalgia, unspecifiedSciatica, unspecified sideSacroiliitis, not elsewhere classified New patient,40-59min; chronic exacerbation, 2 stable chronic or 1 acute illness add add modifier 95 for video (do not use for phone, instead use 06995-45) [facility] New patient,40-59min; chronic exacerbation, 2 stable chronic or 1 acute illness add add modifier 95 for video (do not use for phone, instead use 61981-88) [facility] New patient,40-59min; chronic exacerbation, 2 stable chronic or 1 acute illness add add modifier 95 for video (do not use for phone, instead use 02878-39) [facility] New patient,40-59min; chronic exacerbation, 2 stable chronic or 1 acute illness add add modifier 95 for video (do not use for phone, instead use 99753-12) [facility] ([place]) [place]/20[place] New patient,40-59min; chronic exacerbation, 2 stable chronic or 1 acute illness add add modifier 95 for video (do not use for phone, instead use 80525-40) [facility] 12[place]/20[place] New patient,40-59min; chronic exacerbation, 2 stable chronic or 1 acute illness add add modifier 95 for video (do not use for phone, instead use 98461-74) [facility] New patient,40-59min; chronic exacerbation, 2 stable chronic or 1 acute illness add add modifier 95 for video (do not use for phone, instead use 95680-64) [facility] New patient,40-59min; chronic exacerbation, 2 stable chronic or 1 acute illness add add modifier 95 for video (do not use for phone, instead use 17483-20) [facility]/20[place] Estab. patient 30-39min; chronic exacerbation, 2 stable chronic or 1 acute illness add add modifier 95 for video, (do not use for phone, instead use 96820-64) [facility] 01[place]26/2023 Opioid dependence, uncomplicatedLong term (current) use of opiate analgesicSedative, hypnotic or anxiolytic dependence, uncomplicatedDorsalgia, unspecifiedSciatica, unspecified sideSacroiliitis, not elsewhere classifiedChronic obstructive pulmonary disease, unspecifiedCough, unspecified Estab. patient 30-39min; chronic exacerbation, 2 stable chronic or 1 acute illness add add modifier 95 for video, (do not use for phone, instead use 62098-16) [facility]20[place] Estab. patient 30-39min; chronic exacerbation, 2 stable chronic or 1 acute illness add add modifier 95 for video, (do not use for phone, instead use 69267-86) [facility]/20[place] Estab. patient 30-39min; chronic exacerbation, 2 stable chronic or 1 acute illness add add modifier 95 for video, (do not use for phone, instead use 21926-07) [facility] 01[place]/20[place] Estab. patient 30-39min; chronic exacerbation, 2 stable chronic or 1 acute illness add add modifier 95 for video, (do not use for phone, instead use 48993-10) [facility] 01[place]20[place] Estab. patient 30-39min; chronic exacerbation, 2 stable chronic or 1 acute illness add add modifier 95 for video, (do not use for phone, instead use 92102-94) [facility] 01[place]/2023 Estab. patient 30-39min; chronic exacerbation, 2 stable chronic or 1 acute illness add add modifier 95 for video, (do not use for phone, instead use 03114-29) [facility]2023 Estab. patient 30-39min; chronic exacerbation, 2 stable chronic or 1 acute illness add add modifier 95 for video, (do not use for phone, instead use 34991-77) [facility]2023 Estab. patient 30-39min; chronic exacerbation, 2 stable chronic or 1 acute illness add add modifier 95 for video, (do not use for phone, instead use 55559-32) [facility] 01[place]/2023 Estab. patient 30-39min; chronic exacerbation, 2 stable chronic or 1 acute illness add add modifier 95 for video, (do not use for phone, instead use 24739-71) [facility] 01[place]26/2023 Estab. patient 30-39min; chronic exacerbation, 2 stable chronic or 1 acute illness add add modifier 95 for video, (do not use for phone, instead use 35589-53) [facility] 02[place]03/2023 Dorsalgia, unspecifiedSciati ca, unspecified sideSacroiliitis, not elsewhere classifiedChronic obstructive pulmonary disease, unspecifiedLong term (current) use of opiate analgesicCough, unspecifiedOther long-term (current) drug therapy Estab. patient 30-39min; chronic exacerbation, 2 stable chronic or 1 acute illness add add modifier 95 for video, (do not use for phone, instead use 00979-92) [facility] 02[place]20[place] Estab. patient 30-39min; chronic exacerbation, 2 stable chronic or 1 acute illness add add modifier 95 for video, (do not use for phone, instead use 98105-35) [facility]20[place] Estab. patient 30-39min; chronic exacerbation, 2 stable chronic or 1 acute illness add add modifier 95 for video, (do not use for phone, instead use 93705-93) [facility] Estab. patient 30-39min; chronic exacerbation, 2 stable chronic or 1 acute illness add add modifier 95 for video, (do not use for phone, instead use 97490-00) [facility]20[place] Estab. patient 30-39min; chronic exacerbation, 2 stable chronic or 1 acute illness add add modifier 95 for video, (do not use for phone, instead use 05450-84) [facility] 02[place]20[place] Estab. patient 30-39min; chronic exacerbation, 2 stable chronic or 1 acute illness add add modifier 95 for video, (do not use for phone, instead use 67405-13) [facility] 02[place]20[place] Estab. patient 30-39min; chronic exacerbation, 2 stable chronic or 1 acute illness add add modifier 95 for video, (do not use for phone, instead use 37538-68) [facility] 02/03/2023 No Data Available [facility] 02[place]10/2023 Cough, unspecifiedSacroiliit is, not elsewhere classifiedDorsalgia, unspecifiedSciatica, unspecified side No Data Available [facility] 02[place]10/2023 No Data Available [facility]/10/2023 No Data Available [facility] 08[place]10[place]2023 Dorsalgia, unspecifiedOther chronic painSacroiliitis, not elsewhere classifiedOther muscle spasmOpioid use, unspecified, uncomplicated No Data Available [facility] 08[place]10/2023 No Data Available [facility]/2023 Acute upper respiratory infection, unspecified No Data Available [facility] 08[place]/2023 No Data Available [facility] 08[place]/2023 No Data Available [facility] 09[place]01/2023 Acute upper respiratory infection, unspecifiedOther problems related to medical facilities and other health care No Data Available [facility] 10/11/2023 Urinary tract infection, sit e not specifiedNausea No Data Available [facility] 10/11/2023 No Data Available [facility]20[place] Estab. patient 30-39min; chronic exacerbation, 2 stable chronic or 1 acute illness add add modifier 95 for video, (do not use for phone, instead use 83981-86) [facility]19[place]2023 Dorsalgia, unspecifiedOther chronic painSacroiliitis, not elsewhere classifiedOther long-term (current) drug therapyOther muscle spasmOpioid use, unspecified, uncomplicatedChronic obstructive pulmonary disease, unspecifiedOther problems related to medical facilities and other health careUrinary tract infection, site not specifiedNauseaPersonal history of nicotine dependence Estab. patient 30-39min; chronic exacerbation, 2 stable chronic or 1 acute illness add add modifier 95 for video, (do not use for phone, instead use 67280-48) [facility]19[place]20[place] Estab. patient 30-39min; chronic exacerbation, 2 stable chronic or 1 acute illness add add modifier 95 for video, (do not use for phone, instead use 44512-33) [facility] 10[place]19[place]2023 Estab. patient 30-39min; chronic exacerbation, 2 stable chronic or 1 acute illness add add modifier 95 for video, (do not use for phone, instead use 47910-27) [facility]19[place]2023 Estab. patient 30-39min; chronic exacerbation, 2 stable chronic or 1 acute illness add add modifier 95 for video, (do not use for phone, instead use 22157-65) [facility]19[place]20[place] Estab. patient 30-39min; chronic exacerbation, 2 stable chronic or 1 acute illness add add modifier 95 for video, (do not use for phone, instead use 88369-45) [facility] 10[place]19[place]2023 Estab. patient 30-39min; chronic exacerbation, 2 stable chronic or 1 acute illness add add modifier 95 for video, (do not use for phone, instead use 13465-24) [facility] 10[place]19[place]2023 Estab. patient 30-39min; chronic exacerbation, 2 stable chronic or 1 acute illness add add modifier 95 for video, (do not use for phone, instead use 71372-45) [facility]19[place]20[place] Estab. patient 30-39min; chronic exacerbation, 2 stable chronic or 1 acute illness add add modifier 95 for video, (do not use for phone, instead use 79679-54) [facility] 10[place]19[place]2023 Estab. patient 30-39min; chronic exacerbation, 2 stable chronic or 1 acute illness add add modifier 95 for video, (do not use for phone, instead use 09810-88) [facility] 10[place]19[place]2023 No Data Available [facility]2023 Sacroiliitis, not elsewhere classifiedDorsalgia, unspecifiedOther chronic painOther muscle spasmOpioid use, unspecified, uncomplicatedUrinary tract infection, site not specifiedNausea No Data Available [facility]2023 No Data Available [facility]2023 No Data Available [facility]2023 No Data Available [facility]/2023 Dorsalgia, unspecifiedOther chronic painSacroiliitis, not elsewhere classifiedOther muscle spasmOpioid use, unspecified, uncomplicatedUrinary tract infection, site not specifiedNauseaOther problems related to medical facilities and other health care No Data Available [facility]/2023 No Data Available [facility] 01/09/2024 Dorsalgia, unspecifiedOther problems related to medical facilities and other health careOther chronic painSacroiliitis, not elsewhere classifiedOther muscle spasmOpioid use, unspecified, uncomplicated No Data Available [facility]/20[place] Estab. patient 10-29min; 1 minor problem; add add modifier 95 for video, modifier 93 for phone [facility] 02/[place]/2024 Chronic obstructive pulmonar y disease, unspecifiedDorsalgia, unspecifiedOther chronic painSacroiliitis, not elsewhere classifiedOther muscle spasmOpioid use, unspecified, uncomplicatedOther problems related to medical facilities and other health care Estab. patient 10-29min; 1 minor problem; add add modifier 95 for video, modifier 93 for phone [facility]2024 Estab. patient 10-29min; 1 minor problem; add add modifier 95 for video, modifier 93 for phone [facility] 02/20/2024 Estab. patient 10-29min; 1 minor problem; add add modifier 95 for video, modifier 93 for phone [facility] 03/04/2024 Acute upper respiratory infection, unspecified Estab. patient 20-29min; 1 stable chronic or 2 minor; add add modifier 95 for video, modifier 93 for phone [facility] 04/26/2024 Dorsalgia, unspecifiedOther chronic painSacroiliitis, not elsewhere classifiedOther muscle spasmOpioid use, unspecified, uncomplicatedOther long-term (current) drug therapyChronic obstructive pulmonary disease, unspecifiedAcute upper respiratory infection, unspecifiedOther problems related to medical facilities and other health care Estab. patient 20-29min; 1 stable chronic or 2 minor; add add modifier 95 for video, modifier 93 for phone [facility] 04/26/2024 Estab. patient 20-29min; 1 stable chronic or 2 minor; add add modifier 95 for video, modifier 93 for phone [facility] [place] 04/26/2024 Estab. patient 20-29min; 1 stable chronic or 2 minor; add add modifier 95 for video, modifier 93 for phone [facility] [place] 04/26/2024 Estab. patient 20-29min; 1 stable chronic or 2 minor; add add modifier 95 for video, modifier 93 for phone [facility] [place] 04/26/2024 Estab. patient 20-29min; 1 stable chronic or 2 minor; add add modifier 95 for video, modifier 93 for phone [facility] 04/26/2024 Estab. patient 20-29min; 1 stable chronic or 2 minor; add add modifier 95 for video, modifier 93 for phone [facility] [place] 04/26/2024 Estab. patient 20-29min; 1 stable chronic or 2 minor; add add modifier 95 for video, modifier 93 for phone [facility] [place] 04/26/2024 Estab. patient 20-29min; 1 stable chronic or 2 minor; add add modifier 95 for video, modifier 93 for phone [facility] [place] 04/26/2024 Vital Signs Date of Collection Vitals 2021-12-30 [...] y Mass Index (BMI) - 28.9 kg/m2 2024-04-26 12:00:15 Height - 152.4 cmWei ght - 64.86 kgBody Mass Index (BMI) - 27.93 kg/m2BP Diastolic - 86.0 mm[Hg]BP Systolic - 136.0 mm[Hg] Social History Social History Social History Observation Description Effec tive Time Current Smoking Status Former smoker 2025-04-2 2 Sex Female History of Procedures Procedures Service Procedure code Service date Servicing provider Phone# New patient,40-59min; chronic exacerbation, 2 stable chronic or 1 acute illness add add modifier 95 for video (do not use for phone, instead use 29710-10) [id number] 2021-12-30 No Data Available No Data Availa [...] (do not use for phone, instead use 07985-68) 41710 2023-01-26 No Data Available No Data Availa [...] (do not use for phone, instead use 92839-54) [id number] 2023-02-03 No Data Available No Data Availa [...] No Data Avail able No Data Available [id number] 2023-02-10 No Data Available No Data Available Pain Assessment - Pain Documented on a Pain Scale (1125F) 1125F 2023-02-10 No Data Available No Data Cecilia ilable Medication List Documented (1159F) 1159F 2023-02-10 No Data Available No Data Cecilia ilable No Data Available [id number] 2023-08-10 No Data Available No Data Available Medication List Documented (1159F) 1159F 2023-08-10 No Data Available No Data Cecilia ilable No Data Available [id number] 2023-08-24 No Data Available No Data Available SBP < 130 (3074F) 3074F 2023-08-24 No Data Available No Data Available DBP 80-89 (3079F) 3079F 2023-08-24 No Data Available No Data Available No Data Available [id number] 2023-09-01 No Data Available No Data Available No Data Available [id number] 2023-10-11 No Data Available No Data Available SBP >= 140 3077F 2023-10-11 No Data Available No Data Available DBP >=90 3080F 2023-10-11 No Data Available No Data Available Estab. patient 30-39min; chronic exacerbation, 2 stable chronic or 1 acute illness add add modifier 95 for video, (do not use for phone, instead use 40653-78) 62098 2023-10-19 No Data Available No Data Availa [...] No Data Availa ble No Data Available [id number] 2023-11-20 No Data Available No Data Available Medication List Documented (1159F) 1159F 2023-11-20 No Data Available No Data Cecilia ilable SBP < 130 (3074F) 3074F 2023-11-20 No Data Available No Data Available DBP 80-89 (3079F) 3079F 2023-11-20 No Data Available No Data Available No Data Available [id number] 2023-11-22 No Data Available No Data Available Medication List Documented (1159F) 1159F 2023-11-22 No Data Available No Data Cecilia ilable No Data Available [id number] 2024-01-09 No Data Available No Data Available Medication List Documented (1159F) 1159F 2024-01-09 No Data Available No Data Cecilia ilable Estab. patient 10-29min; 1 minor problem; add add modifier 95 for video, modifier 93 for phone 36902 2024-02-20 No Data Available No Data Availa ble Medication List Documented (1159F) 1159F 2024-02-20 No Data Available No Data Cecilia ilable BMI obtained (3008F) 3008F 2024-02-20 No Data Availab le No Data Available Estab. patient 10-29min; 1 minor problem; add add modifier 95 for video, modifier 93 for phone 23048 2024-03-04 No Data Available No Data Availa ble Estab. patient 20-29min; 1 stable chronic or 2 minor; add add modifier 95 for video, modifier 93 for phone 96164 2024-04-26 No Data Available No Data Availa ble Medication List Documented (1159F) 1159F 2024-04-26 No Data Available No Data Cecilia ilable Medication Review by prescribing provider or pharmacist documented (1160F) 1160F 2024-04-26 No Data Available No Data Cecilia ilable Functional Status Assessed (1170F) 1170F 2024-04-26 No Data Available No Data Avail able Advance Care Directive Advance care planning discussion documented in the medical record (1158F) 1158F 2024-04-26 No Data Available No Data Availa ble Advance care planning discussed and documented ? advance care plan or surrogate decision-maker was documented in the medical record. (1123F) 1123F 2024-04-26 No Data Available No Data Availa ble Pain Assessment - NO pain present (1126F) 1126F 2024-04-26 No Data Available No Data A vailable SBP 130-139 (3075F) 3075F 2024-04-26 No Data Availabl e No Data Available DBP 80-89 (3079F) 3079F 2024-04-26 No Data Available No Data Available Functional Status Functional Category Effective Dates ADLsAmbulating - Needs Melodie tanceDressing - Needs assistanceBathing - Needs assistanceToileting - Needs assistanceTransfers - Needs assistanceEating - IndependentiADLsShopping - Needs assistanceMedications - Needs assistanceHousekeeping - Needs assistanceCooking - Needs assistance 2024-04-26 Falls in last 6 Months: No 2021-12-30 DME: shower chair, cane, walker Mental Status Status Date aox3 2023-02-10 Assessments [...] care 2023-10-11 10:54:55 Follow up plan for a cute symptoms:UTI (urinary tract infection)Nausea 2023-10-19 12:15:00 Chronic [...] orally BID PRN muscle spasms/pain #30 tablet HRm2zBg New Tylenol Extra Strength 500 mg Tab 2 tablet orally q 6hrs prn pain/fever #30 tablet LKj2tGn New Diclofenac Sodium 1 % Gel 4 grams topically to affected area 4 times per day PRN #100 gram EYh9fJu New Lidocaine 5 % Oint apply thin film to affected area TID prn pain #50 gram QFh5oHj New predniSONE 20 mg Tab Take 2 tablets twice daily for 3 days, 1 tablet twice daily for 2 days, and 1 tablet daily for 2 days. #18 tab [id number] plan of care and conservative measures for [...] low abd pain. Please remember to call [facility] to see PCP. Follow-up with [facility] as needed for any acute or disease education needs that may arise 06/09.UTI (urinary tract infection)Eocqzj7410/11/2023eRx New Tylenol Extra Strength 500 mg Tab 2 tablet orally Q6hrs prn pain/fever #30 tablet JBk2yEd New Ondansetron 8 mg Tab Disintegrating 1 tablet orally every 8 hours as needed nausea #30 tablet GGq8mUh New Macrobid 100 mg Cap Take 1 tablet PO twice daily for 7 days. #14 tablet RFx10/19/23: Improved per pt, antoinette ss today. 2023-11-20 10:41:07 Follow up plan for jordyn figueroa symptoms:Chronic back pain greater than 3 months [...] 2024-03-04 12:47:32 URI (upper respirato ry infection) 2024-04-26 12:00:15 Chronic back pain gr eater than 3 months durationBilateral sacroiliitisMuscle spasms of both lower extremitiesOpioid useChronic prescription benzodiazepine useCOPD (chronic obstructive pulmonary disease)URI (upper respiratory infection)Other problems related to medical facilities and other health care Plan of Care Date of Service Plans [...] sedationFor many years.Now at pain clinic in [facility], began seeing them on 12/07.On TramadolTizanindineGabapentinClonazepamTramadolTizanindineGabapentinClonazepa m [...] sedationFor many years.Now at pain clinic in [facility], began seeing them on 12/07.On TramadolTizanindineGabapentinClonazepamTramadolTizanindineGabapentinClonazepa [...] sedationFor many years.Now at pain clinic in [facility], began seeing them on 12/07.On IysuycjjAqxllshhswdZtnzsmgdlwHqrrsrulic38/21/2023ontinues with pain, poor historian, unclear how much pain she is having today, appears to be active but itwpomVatimronTjoyzibagrsKtsqqezlrfQderzguxlr15/21/2023ontinues with pain, pls cont tx as prescribed, [...] + days. Inhaler puffer 4/ day for hpjbksxfrousvxm46/21/2023Very difficult to assess. Not a relieble historian, [...] modifier 95)Continue to see PCP. [facility] [place] [facility] any acute or disease [...] + days. Inhaler puffer 4/ day for nkttadiuuckhoeg26/21/2023Very difficult to assess. Not a relieble historian, [...] inhalers/nebs.We will F/U next week.02/10 stable has halcwpzsKyuqtrwjTgefxyiilgtYsgojckiveJzulacxybm74/21/2023ontinues with pain, pls cont tx as prescribed, reports she was told that PT was not viable. Will investigate.02/10 has had this for years, will refer to neurologist, denies any bowel or bladder dysfunctionFor many years.Now at pain clinic in [facility], began seeing them on 12/07.On WbxybfkjXdefjxnpijyEdukppgugcXlssddgeay78/21/2023ontinues with pain, poor historian, unclear how much pain she is having today, appears to be active but hahrbx86/28 for many years will refer to neurologist [...] orally BID PRN muscle spasms/pain #30 tablet JXm9sNb New Tylenol Extra Strength 500 mg Tab 2 tablet orally q 6hrs prn pain/fever #30 tablet KEq6dDc New Diclofenac Sodium 1 % Gel 4 grams topically to affected area 4 times per day PRN #100 gram BMv4tAi New Lidocaine 5 % Oint apply thin film to affected area TID prn pain #50 gram OOg8vTu New predniSONE 20 mg Tab Take 2 tablets twice daily for 3 days, 1 tablet twice daily for 2 days, and 1 tablet daily for 2 days. #18 tab ODy2httezfcz plan of care and conservative measures for [...] low abd pain. [facility]. Follow-up with [facility] [...] tablet orally Q6hrs prn pain/fever #30 tablet XRo4lFg New Ondansetron 8 mg Tab Disintegrating 1 tablet orally every 8 hours as needed nausea #30 tablet JDn7fAn New Macrobid 100 mg Cap Take 1 [...] orally BID PRN muscle spasms/pain #30 tablet LIp1kFl New Tylenol Extra Strength 500 mg Tab 2 tablet orally q 6hrs prn pain/fever #30 tablet PHi9zXa New Diclofenac Sodium 1 % Gel 4 grams topically to affected area 4 times per day PRN #100 gram YTs6aVn New Lidocaine 5 % Oint apply thin film to affected area TID prn pain #50 gram KCu0jSs New predniSONE 20 mg Tab Take 2 tablets twice daily for 3 days, 1 tablet twice daily for 2 days, and 1 tablet daily for 2 days. #18 tab UIp3qnuvpzzk plan of care and conservative measures for [...] tablet orally Q6hrs prn pain/fever #30 tablet PKd0yFb New Ondansetron 8 mg Tab Disintegrating 1 tablet orally every 8 hours as needed nausea #30 tablet KDp6fMu New Macrobid 100 mg Cap Take 1 [...] orally BID PRN muscle spasms/pain #30 tablet AWh9zIx New Tylenol Extra Strength 500 mg Tab 2 tablet orally q 6hrs prn pain/fever #30 tablet DUx7sZz New Diclofenac Sodium 1 % Gel 4 grams topically to affected area 4 times per day PRN #100 gram CKg1nVe New Lidocaine 5 % Oint apply thin film to affected area TID prn pain #50 gram YMj2qWn New predniSONE 20 mg Tab Take 2 tablets twice daily for 3 days, 1 tablet twice daily for 2 days, and 1 tablet daily for 2 days. #18 tab NHh1vzrpqzyp plan of care and conservative measures for [...] tablet orally Q6hrs prn pain/fever #30 tablet MCg3cJt New Ondansetron 8 mg Tab Disintegrating 1 tablet orally every 8 hours as needed nausea #30 tablet VKh8aSa New Macrobid 100 mg Cap Take 1 tablet PO twice daily for 7 days. #14 tablet RFx10/19/23: Improved per pt, denies ss today. 11/20/23:Member describing dysuria and recurrent UTI symptomsStart bactrim DS BID x 5 daysEncouraged increased fluid intake, especially waterAPP f/u is scheduled for 11/21 regarding back symptoms, but can call back sooner for any new or worsened yztpekba73/8/24: Symptoms began 2 days ago on Tuesday. [...] low abd pain. Please remember to call [facility] to see PCP. Follow-up with [facility] as [...] orally BID PRN muscle spasms/pain #30 tablet GGg0fEe New Tylenol Extra Strength 500 mg Tab 2 tablet orally q 6hrs prn pain/fever #30 tablet OXg5iNn New Diclofenac Sodium 1 % Gel 4 grams topically to affected area 4 times per day PRN #100 gram SVc0iRy New Lidocaine 5 % Oint apply thin film to affected area TID prn pain #50 gram KWj3oJw New predniSONE 20 mg Tab Take 2 tablets twice daily for 3 days, 1 tablet twice daily for 2 days, and 1 tablet daily for 2 days. #18 tab XEi6resmpqqz plan of care and conservative measures for [...] low abd pain. Please remember to call [facility] to see PCP. Follow-up with [facility] as [...] orally BID PRN muscle spasms/pain #30 tablet NAh5kYp New Tylenol Extra Strength 500 mg Tab 2 tablet orally q 6hrs prn pain/fever #30 tablet QBu3wHd New Diclofenac Sodium 1 % Gel 4 grams topically to affected area 4 times per day PRN #100 gram TVe1dVr New Lidocaine 5 % Oint apply thin film to affected area TID prn pain #50 gram IMn6fYc New predniSONE 20 mg Tab Take 2 tablets twice daily for 3 days, 1 tablet twice daily for 2 days, and 1 tablet daily for 2 days. #18 tab YOf8ortpkvtn plan of care and conservative measures for [...] 45 tabs. Will refill rx, sent to [facility].When member to call: 1. If bp is elevated sbp>150; dbp>90 or symptomatic-h/a, dizziness, cp, sob. 2. if there is a fall 3. if BS >300 or BS<90 or symptomatic; i.e., dizzy, off balance , shaky, general weakness. 4. if UTI symptoms arise-urinary frequency, dysuria, low abd pain. [facility] Follow-up with [facility] [...] in each nostril twice daily #1 each KTt1Zqfqxj Promethazine-DM 6.25/15 mg/5ML Syrup 5 ml orally every 4-6 hours as needed for cough #200 ml IOn6Umt use cool mist vaporizer/humidifier next to bed Elevate HOB when lying down Increase water intakeContact CB if no improvement or symptoms become worse.Can Use Nebs Q 4 hrs prn. 12:00:15 Functional Status Assessed (1170F)Advanc e Care Directive Advance care planning discussion documented in the medical record (1158F)Advance care planning discussed and documented ? advance care plan or surrogate decision-maker was documented in the medical record. (1123F)Estab. patient 20-29min; 1 stable chronic or 2 minor; add add modifier 95 for video, modifier 93 for phoneMedication List Documented (1159F)Medication Review by prescribing provider or pharmacist documented (1160F)Pain Assessment - NO pain present (1126F)SBP 130-139 (3075F)DBP 80-89 (3079F)Continue to see PCP. Follow-up with [facility] as needed for any acute or disease education needs that may arise.No longer on Lyrica or GabapentinTizanidine works better than FlexerilLidocaine and Diclofenac do not help11/20/23:Recurrent pain in back and into legs with [...] 45 tabs. Will refill rx, sent to [facility].04/26/24: Tizanidine helps more than Flexeril. I last filled on 03/06/24 for 45 tabs, member requesting refill today, tolerating.Has been taking clonazepam for 10+ yearsDiscussed risk of sedationRx: Breo Elipta, Albuterol HFA PRN, Levalbuterol [facility] pulmonology follow up04/26/24: Saw her pulm today, she has URI symptoms. Has prescribed steroids but they do not agree with her stomach.03/04/24- Azelastine 0.1 % Solution Nasal use 2 sprays in each nostril twice daily #1 each HOg3Pnudpc Promethazine-DM 6.25/15 mg/5ML Syrup 5 ml orally every 4-6 hours as needed for cough #200 ml DUf0Kvz use cool mist vaporizer/humidifier next to bed Elevate HOB when lying down Increase water intake, warm tea with honey, salt water gargles.Contact CB if no improvement or symptoms become worse.04/26/24: Just finished antibiotics for ear infection prescribed by PCP 14 day course and completed last night. Reports she has imaging done of her face to assess her sinuses.PAIN CONTINGENCY PLANLast updated: 04/26/2024Member to call for the following symptoms: Fall??/ Increased pain/ Increased pain meds/ Joint swellingPlanned intervention: Encourage extra fluid intake / Tylenol 1,000mg q6h/ Lidoderm patch 4% to affected area/ Voltaren gel to affected area/ Prednisone 50mg daily for 5 days/ Tizanidine 4mg every 8 hours/ Apply heat to affected area/ Apply ice to affected area Goals Date Goal 2021-12-30 Remember to 2021-12-30 Call me if 2021-12-30 Keep it up 2023-02-10 continue medications as prescribed 2023-02-10 call if you feel ill , have any questions or concerns 2023-02-10 no new concerns, ebenezer l refer to neurology Health Concerns Date Concern 2024-04-26 Visit completed bharathi joyner audio/video. Patient/Guardian agreed to visit via telehealth. Today, patient has chief complaint of: follow up care and comprehensive review.Reviewed Allergies, Medications, Active Medical conditions, past medical/surgical history, Social history. 2024-04-26 Advance Care Plangianni joyner - See Legal 2024-04-26 Most recent hospital stay(s) or ER visit(s) and precipitating factors: Denies 2024-04-26 Open HEDIS Measure r eview: Closed 2024-04-26 ECCA completed with BERTO lvn lpn and member
== END 2024-06-05 08:40 | disposition home or self-care (01) ==
LOC: HO.MAMMO 08:39
PROVIDERS: PCP Internal Medicine; Visit Provider Internal Medicine
DX: Z12.31 Encounter for screening mammogram for malignant neoplasm of breast (principal)
CPT/HCPCS: 77063; 77067

== ENCOUNTER → 2024-06-05 08:45 | Outpatient (BNV) | payer OTHER, SELFPAY | PROVIDERS: PCP Internal Medicine; Visit Provider Internal Medicine | DX: Z12.31 Encounter for screening mammogram for malignant neoplasm of breast (principal) | CPT/HCPCS: 77063; 77067 ==

== ENCOUNTER 2024-06-13 12:48 | Outpatient (AMB) | payer OTHER, SELFPAY ==
--- NOTE | 2024-06-13 13:04 | A.OFFPC_ITS ---
Vital Signs 06/13/24 13:06 Height 5 ft Weight 137 lb BMI 26.8 BP 132/80 Blood Pressure Location Lt brachial Position Sitting Intake Visit Reasons: annual exam - se comments Intake Note: Patient here for an annual physical exam Imcu Specialist Required: No Accompanied by: Self / Same As Patient Allergies naproxen Allergy (Intermediate, Verified 06/13/24 13:18) abdominal pain ibuprofen [From Motrin] Adverse Reaction (Mild, Verified 06/13/24 13:18) stomach pain Medication List - Last Reconciled 06/13/24 by Zoe Dillard MD albuterol sulfate 90 mcg/actuation 2 inhalations inhalation Q6H PRN 30 days aspirin 81 mg PO DAILY 90 days bisacodyl (Dulcolax (bisacodyl)) 10 mg (2 x 5 mg) PO BEDTIME 30 days calcium carbonate-vitamin D3 250 mg-3.125 mcg (125 unit) (Oyster Shell Calcium- Vitamin D3) 1 tab PO BID 90 days cane quad cane cetirizine (All Day Allergy (cetirizine)) 10 mg PO DAILY PRN 90 days clonazepam 1 mg PO BEDTIME PRN 30 days diclofenac sodium 1% (Arthritis Pain (diclofenac)) 4 grams topical QID fluticasone furoate-vilanterol 200-25 mcg/dose (Breo Ellipta) 1 inh inhalation DAILY 30 days gabapentin 300 mg PO BEDTIME 30 days Grab bar As directed hydrocortisone 1% (Anti-Itch (hydrocortisone)) 1 appl topical BID PRN 30 days incontinence pad, liner, disp Use 1 pad three times a day incontinence pad, liner, disp Use 1 pad three times a day levalbuterol HCl 1.25 mg (3 mL) inhalation BID 30 days lidocaine 5% 2 patches topical DAILY 30 days nebulizers As directed yfezsvsy-vhzrwxrmy-UV 3.5-10,000-1 mg/mL-unit/mL-% 4 drps otic (ear) right Q8H 1 week [raised toilet seat As directed] roflumilast (Daliresp) 500 mcg PO DAILY 30 days simethicone 180 mg PO QID 30 days tramadol 50 mg PO DAILY 30 days [wipes As directed] Tobacco use date assessed: 06/13/24 Fall risk assessment: No Falls in past year Last assessed Fall Risk: 06/13/24 Dental Screening Dental Screen Date: 04/10/24 HPI HPI Comments History of Present Illness Details The patient is a 73-year-old female presenting for her annual physical examination, with notable complaints of polyarticular osteoarthritis. This chronic joint pain, despite treatment with topical diclofenac, continues to limit her activities. Her medical history includes ongoing management for cirrhosis, for which she needs coordination for gastroenterology follow-up. Her osteopenia is managed through supplements with a scheduled assessment for future bone density analysis. She has a documented history of internal hemorrhoids and melanosis coli, discovered during a colonoscopy in 2022 that also revealed hyperplastic polyps and a tubular adenoma. Her allergies constrain NSAID management options; hence, topical options prevent gastrointestinal side effects she experiences with oral medications. The patient also suffers from mild depression, influenced by her chronic pain and limitations, although she declined antidepressant use. Her social history includes previous tobacco use but currently does not consume alcohol. She reports insomnia correlated with sleep apnea and awaits a further assessment study. [facility] Medical History (Updated 06/13/24 @ 14:04 by Zoe Dillard MD) Sacroiliitis Physical exam Chest pain Blurry vision Abnormal chest x-ray Pre-op examination Emphysema of lung Thoracic back pain Muscle spasm Back pain Chronic restrictive lung disease Temporomandibular joint (TMJ) pain Anemia Osteopenia Postmenopausal Obese Chronic pain syndrome Hypovitaminosis D Depression with anxiety Surgical History H/O colonoscopy S/P FARRAH-BSO (total abdominal hysterectomy and bilateral salpingo-oophorectomy) Family History Father No problems noted. Mother Emphysema lung Sister Colon cancer Social History Housing: Apartment Alcohol intake: never Patient Tobacco Use Status: Former Tobacco user Tobacco use type: Cigarette e-Cigarette/Vaping Use: Never Used Second Hand Smoke Exposure: No Advance Directives Date on File: 01/12/22 service: No Current occupational status: unemployed Cognitive needs: Yes Hearing needs: No Vision needs: No Questionnaire PHQ-9 Over the last 2 weeks, how often have you been bothered by any of the following problems? 1. Little interest or pleasure in doing things: not at all 2. Feeling down, depressed, or hopeless: nearly every day 3. Trouble falling or staying asleep, or sleeping too much: nearly every day 4. Feeling tired or having little energy: nearly every day 5. Poor appetite or overeating: more than half the days 6. Feeling bad about yourself - or that you are a failure or have let yourself or your family down: not at all 7. Trouble concentrating on things, such as reading the newspaper or watching television: not at all 8. Moving or speaking so slowly that other people could have noticed. Or the opposite - being so fidgety or restless that you have been moving around a lot more than usual: nearly every day 9. Thoughts that you would be better off or of hurting yourself in some way: not at all Total score: 14 Depression Screening Interpretation: Positive Depression Screening Follow-up: Existing condition, Follow-up Visit Requested and Declines treatment Depression Screening Done: Yes 80145 - PHQ-9 Billing: Yes Source: Developed by Drs. Jose Carlos Remy, Meagan Oviedo, Rob Belle and colleagues, with an educational stanley from [employer]. Thrive Questionnaire Date Thrive assessed: 06/13/24 I am a: Patient What is your living situation today?: I have a steady place to live Within the past 12 months, did the food you bought not last and you didn't have the money to get more?: I choose not to answer this question Within the past 12 months, did you worry whether your food would run out before you got money to buy more?: I choose not to answer this question Do you have trouble paying for medicines?: No Do you have trouble getting transportation to medical appointments?: No Do you have trouble paying your heating and electricity bill?: No Do you have trouble taking care of your child, family member or friend?: Yes Do you have trouble with day-to-day activities such as bathing, preparing meals, shopping, managing finances, etc.?: Yes Are you currently unemployed and looking for a job?: No Are you interested in more education?: I choose not to answer this question Please select the resources that you would like help with: None Currently or been in a relationship where the following occur: No concerns reported THRIVE Score: 0 AUDIT C Alcohol Use Questionnaire (AUDIT-C) 1. How often do you have a drink containing alcohol?: Never Total Score: 0 Score Reviewed/Action Taken: No KEZIA-7 AMB Questionnaire KEZIA-7 Date KEZIA - 7 assessed: 06/13/24 Feeling nervous, anxious, or on edge: 0 = Not at all Not being able to stop or control worryin = Not at all Worrying too much about different things: 0 = Not at all Trouble relaxin = Not at all Being so restless that it is hard to sit still: 0 = Not at all Becoming easily annoyed or irritable: 0 = Not at all Feeling afraid as if something awful might happen: 0 = Not at all Total KEZIA-7 score (0-4 normal; 5-9 mild; 10-14 moderate; 15-21 severe): 0 Source: Developed by Drs. Jose Carlos Remy, Meagan Oviedo, Rob Belle and colleagues, with an educational stanley from [employer]. KEZIA-7 Assessment Billing KEZIA-7 Assessment Tool: KEZIA-7 Assessment 10826 Review of Systems Const All systems reviewed & are unremarkable except as noted in HPI and below Card Denies chest pain at rest, Denies chest pain with activity, Denies edema, Denies irregular heart rhythm, Denies claudication, Denies dyspnea, Denies dyspnea on exertion, Denies orthopnea, Denies paroxysmal nocturnal dyspnea and Denies slow heart rate Resp Denies cough, Denies dyspnea and Denies dyspnea on exertion Denies urinary incontinence, Denies urinary hesitancy and Denies urinary urgency Musc Denies atrophy, Denies deformity and Denies limited range of motion Physical exam (Primary Care) Vital Signs: Last Vital Signs BP 132/80 06/13/24 13:06 BMI result Body Mass Index 26.8 Tobacco/Smoking Status: Tobacco use Status Tobacco use date assessed 06/13/24 06/13/24 13:13 Patient Tobacco Use Status Former Tobacco user 06/13/24 13:13 Tobacco use type Cigarette 06/13/24 13:13 e-Cigarette/Vaping Use Never Used 06/13/24 13:13 PHQ-9: PHQ-9 Score PHQ-9: Total score 14 06/13/24 13:13 Depression Screening Interpretation: Positive Depression Screening Follow-up: Existing condition, Follow-up Visit Requested and Declines treatment Thrive Assessment: Date of Thrive Assessment Date Thrive assessed 06/13/24 06/13/24 13:13 Currently or been in a relationship where the following occur: No concerns reported [facility] Head: Yes normal to inspection, Yes normocephalic and Yes atraumatic Ears: external ears normal Eyes General: appearance normal, both eyes and all related structures Eyelids: Yes eyelids normal Conjunctivae: conjunctivae normal Neck Neck: Yes normal visual inspection and Yes supple Resp Effort & Inspection: normal respiratory effort Auscultation: clear to auscultation bilaterally Cardio Jugular venous distension: no JVD Rate: regular rate Rhythm: regular rhythm Heart sounds: S1 normal heart sound present and S2 normal heart sound present GI Inspection: Yes normal to inspection Palpation (GI): Soft to palpation and nontender Auscultation: normal bowel sounds Skin General skin exam: no rashes or lesions noted Neuro General: no focal motor deficits Extrem General: Yes full ROM Psych Appearance: grossly normal Coding Level of Care Code Est Pt Level 3 (86056) Est Pt Prev Care >65y(99792) Diagnoses Physical exam Z00.00 Hepatic cirrhosis, unspecified hepatic cirrhosis type, unspecified whether ascites present K74.60 Hepatic cirrhosis type: unspecified hepatic cirrhosis Ascites presence: unspecified Centrilobular emphysema J43.2 Mild recurrent major depression F33.0 Lumbar spondylosis M47.816 Additional Codes PHQ-9 - 87427 - PHQ-9 Billing: Yes ([id number]) KEZIA-7 Assessment Billing - KEZIA-7 Assessment Tool: KEZIA-7 Assessment 98962 ([id number]) Time Spent (min) 35 Assessment & Plan Assessment & Plan (1) Physical exam: Code(s): Z00.00 - Encounter for general adult medical examination without abnormal findings Category: Medical (2) Cirrhosis: Comment: BASELINE LABS 07/23/22 Plt Count 405 H Estimated GFR 11/23/17 ZOE Screen Negative Hepatitis A IgM Ab NONREACTIVE Hep Bs Antigen NEGATIVE Hep Bs Antibody REACTIVE Hep B Core Total A b REACTIVE Hepatitis C Ab (EI A) NONREACTIVE 11/23/17 ZOE Screen Negative Anti-Mitochondrial Ab NEGATIVE Anti-Smooth Muscle Ab <20 CURRENT LABS 01/25/23 09:44 Total Bilirubin 0.5 AST 23 ALT 13 Alkaline Phosphatase 111 MRI OF THE ABDOMEN LIVER PROTOCOL IMPRESSION: Limited examination secondary to motion. Focal arterially hyperenhancing observation in the posterior right hepatic lobe, no associated washout or pseudocapsule, no clear correlate on precontrast images. Nonspecific could be perfusional in etiology. Recommend a short-term follow up abdominal MRI with and without IV contrast in 3 months. Dictated By: Desiree Mora Signed By: <Electronically signed by Desiree Mora in OV> 08/24/22 Code(s): K74.60 - Unspecified cirrhosis of liver Category: Medical Qualifiers: Hepatic cirrhosis type: unspecified hepatic cirrhosis Ascites presence: unspecified Qualified Code(s): K74.60 - Unspecified cirrhosis of liver (3) Centrilobular emphysema: Code(s): J43.2 - Centrilobular emphysema Category: Medical (4) Mild recurrent major depression: Code(s): F33.0 - Major depressive disorder, recurrent, mild Category: Medical (5) Lumbar spondylosis: Code(s): M47.816 - Spondylosis without myelopathy or radiculopathy, lumbar region Category: Medical Plan Continuation of topical diclofenac is advised for managing polyarticular osteoarthritis. The patient's osteopenia management involves regular calcium and vitamin D supplementation, ahead of a planned 2025 bone density scan. Her cirrhosis will necessitate rescheduling with gastroenterology for continued monitoring. Major depressive disorder will be observed, with further discussion on counseling opportunities to improve coping with functional limitations. Upcoming assessments include a sleep study for apnea to elaborate on insomnia findings. Recent mammogram and pneumococcal vaccinations are confirmed up to date, alongside routine lab screenings to evaluate cardio-metabolic health status. Patient was informed and verbally consented to the use of an ambient scribe for clinic note documentation during this visit. During our discussion, I informed the patient of the importance of managing her polyarticular osteoarthritis with topical diclofenac, highlighting its safety given her allergies to NSAIDs. We discussed osteopenia, reiterating the necessity of calcium and vitamin D, and emphasis was placed on osteoporosis prevention strategies. I addressed the urgency for a gastroenterology appointment for cirrhosis follow-up and formulated an action plan to ensure coordination. Exploration of non-pharmacological strategies for depression was considered essential. Anticipated results from the sleep study were discussed concerning insomnia and apnea. I thoroughly reviewed her updated vaccinations and screening outcomes, and we plan for continued comprehensive laboratory assessments. Orders: Orders Lipid Panel Today E78.5 - Hyperlipidemia, unspecified Comprehensive [place]. Panel Fast Today Z00.00 - Encounter for general adult medical examination without abnormal findings Vitamin D 25-OH Total Today E55.9 - Vitamin D deficiency, unspecified Referrals Gastroenterology Referral K74.60 - Unspecified cirrhosis of liver Medications: Changed From tramadol 50 mg PO DAILY 30 days 30 tabs 0RF To tramadol 50 mg PO BID 30 days 60 tabs 0RF Refilled diclofenac sodium 1% (Arthritis Pain (diclofenac)) Apply 1-3 grams (pumps) to the affected area 3-4 times daily. 4 grams topi jay QID 180 grams 0RF pain G89.4 - Chronic pain syndrome, M25.552 - Pain in left hip, M46.1 - Sacroiliitis, not elsewhere classified, M51.36 - Other intervertebral disc degeneration, lumbar region, M79.604 - Pain in right leg, M79.605 - Pain in left leg Patient Instructions: - Start using diclofenac cream as prescribed. - Take calcium and vitamin D supplements daily. - Schedule and attend follow-up with gastroenterology. - Engage in gentle physical activity to help joint health. - Attend scheduled sleep study for apnea assessment. - Follow up with routine health screenings and lab work. - Contact healthcare provider if experiencing significant changes in symptoms or health concerns.
[2024-06-13 13:06] VITALS: BP 132/80; BMI 26.8
--- OUTSIDE RECORDS SUMMARY | 2024-06-13 14:03 | XMS_ITS ---
Author Name Nia Holley NP Address [address] [place] [address] Phone [phone] [facility] Care Team Providers Care Check Scaler Name Role Phone Nia Holley Unavailable [phone] Colette Esteves Unavailable [phone] Unavailable Unavailable Unavailable SUSAN IBARRA Unavailable [phone] Unavailable Unavailable [phone] Reason for Referral Not Available Allergies, adverse [...] on days 2-5 2023-08-24 2024-03-04 Polymyxin B-Trimethoprim 62745-9.1 UNIT/ML-% Solution Ophthalmic 1 drop ophthalmically into [...] MOUTH TWICE DAILY 2024-04-10 No Data Available Ibwcrvgy-Htkzcdrfn-KR [id number] Suspension SHAKE LIQUID AND INSTILL 4 DROPS [...] Active 2023-01-26 N/A Other problems related to wa dical facilities and other health care Active 2023-09-01 N/A Chronic back pain greater th an 3 months durationBilateral sacroiliitisMuscle spasms of both lower extremitiesOpioid use Active 2021-12-30 N/A Encounters Encounters Type Facility Date of Service Diagnosis/Co mplaint New patient,40-59min; chronic exacerbation, 2 stable chronic or 1 acute illness add add modifier 95 for video (do not use for phone, instead use 67911-42) [facility], ([place]) 12/30/2021 Opioid dependence, uncomplicatedLong term (current) use of opiate analgesicSedative, hypnotic or anxiolytic dependence, uncomplicatedDorsalgia, unspecifiedSciatica, unspecified sideSacroiliitis, not elsewhere classified New patient,40-59min; chronic exacerbation, 2 stable chronic or 1 acute illness add add modifier 95 for video (do not use for phone, instead use 14525-30) [facility] ([place] New patient,40-59min; chronic exacerbation, 2 stable chronic or 1 acute illness add add modifier 95 for video (do not use for phone, instead use 18689-30) [facility] New patient,40-59min; chronic exacerbation, 2 stable chronic or 1 acute illness add add modifier 95 for video (do not use for phone, instead use 95531-68) [facility] New patient,40-59min; chronic exacerbation, 2 stable chronic or 1 acute illness add add modifier 95 for video (do not use for phone, instead use 58262-14) [facility] ([place]30/20[place] New patient,40-59min; chronic exacerbation, 2 stable chronic or 1 acute illness add add modifier 95 for video (do not use for phone, instead use 75077-81) [facility] ([place] New patient,40-59min; chronic exacerbation, 2 stable chronic or 1 acute illness add add modifier 95 for video (do not use for phone, instead use 29515-74) [facility] New patient,40-59min; chronic exacerbation, 2 stable chronic or 1 acute illness add add modifier 95 for video (do not use for phone, instead use 13823-13) [facility] New patient,40-59min; chronic exacerbation, 2 stable chronic or 1 acute illness add add modifier 95 for video (do not use for phone, instead use 47591-37) [facility] Estab. patient 30-39min; chronic exacerbation, 2 stable chronic or 1 acute illness add add modifier 95 for video, (do not use for phone, instead use 61121-88) [facility]23 Opioid dependence, uncomplicatedLong term (current) use of opiate analgesicSedative, hypnotic or anxiolytic dependence, uncomplicatedDorsalgia, unspecifiedSciatica, unspecified sideSacroiliitis, not elsewhere classifiedChronic obstructive pulmonary disease, unspecifiedCough, unspecified Estab. patient 30-39min; chronic exacerbation, 2 stable chronic or 1 acute illness add add modifier 95 for video, (do not use for phone, instead use 48481-62) [facility] Estab. patient 30-39min; chronic exacerbation, 2 stable chronic or 1 acute illness add add modifier 95 for video, (do not use for phone, instead use 10933-39) [facility] Estab. patient 30-39min; chronic exacerbation, 2 stable chronic or 1 acute illness add add modifier 95 for video, (do not use for phone, instead use 92188-91) [facility] Estab. patient 30-39min; chronic exacerbation, 2 stable chronic or 1 acute illness add add modifier 95 for video, (do not use for phone, instead use 64802-48) [facility] Estab. patient 30-39min; chronic exacerbation, 2 stable chronic or 1 acute illness add add modifier 95 for video, (do not use for phone, instead use 99589-25) [facility] Estab. patient 30-39min; chronic exacerbation, 2 stable chronic or 1 acute illness add add modifier 95 for video, (do not use for phone, instead use 46882-91) [facility] Estab. patient 30-39min; chronic exacerbation, 2 stable chronic or 1 acute illness add add modifier 95 for video, (do not use for phone, instead use 79911-77) [facility] Estab. patient 30-39min; chronic exacerbation, 2 stable chronic or 1 acute illness add add modifier 95 for video, (do not use for phone, instead use 68250-41) [facility] Estab. patient 30-39min; chronic exacerbation, 2 stable chronic or 1 acute illness add add modifier 95 for video, (do not use for phone, instead use 47688-80) [facility] Estab. patient 30-39min; chronic exacerbation, 2 stable chronic or 1 acute illness add add modifier 95 for video, (do not use for phone, instead use 84932-00) [facility] Dorsalgia, unspecifiedSciati ca, unspecified sideSacroiliitis, not elsewhere classifiedChronic obstructive pulmonary disease, unspecifiedLong term (current) use of opiate analgesicCough, unspecifiedOther senior living (current) drug therapy Estab. patient 30-39min; chronic exacerbation, 2 stable chronic or 1 acute illness add add modifier 95 for video, (do not use for phone, instead use 31473-63) [facility] Estab. patient 30-39min; chronic exacerbation, 2 stable chronic or 1 acute illness add add modifier 95 for video, (do not use for phone, instead use 96841-92) [facility]03[place] Estab. patient 30-39min; chronic exacerbation, 2 stable chronic or 1 acute illness add add modifier 95 for video, (do not use for phone, instead use 19908-40) [facility] Estab. patient 30-39min; chronic exacerbation, 2 stable chronic or 1 acute illness add add modifier 95 for video, (do not use for phone, instead use 58424-89) [facility]03[place]20[place] Estab. patient 30-39min; chronic exacerbation, 2 stable chronic or 1 acute illness add add modifier 95 for video, (do not use for phone, instead use 55839-60) [facility]03[place]20[place] Estab. patient 30-39min; chronic exacerbation, 2 stable chronic or 1 acute illness add add modifier 95 for video, (do not use for phone, instead use 17495-22) [facility]03/20[place] Estab. patient 30-39min; chronic exacerbation, 2 stable chronic or 1 acute illness add add modifier 95 for video, (do not use for phone, instead use 52260-62) [facility] 02[place]03/2023 No Data Available [facility]10/2023 Cough, unspecifiedSacroiliit is, not elsewhere classifiedDorsalgia, unspecifiedSciatica, unspecified side No Data Available [facility] 02[place]10/2023 No Data Available [facility]/10/2023 No Data Available [facility]10[place]2023 Dorsalgia, unspecifiedOther chronic painSacroiliitis, not elsewhere classifiedOther muscle spasmOpioid use, unspecified, uncomplicated No Data Available [facility] 08[place]10/2023 No Data Available [facility]/2023 Acute upper respiratory infection, unspecified No Data Available [facility]24/2023 No Data Available [facility]/2023 No Data Available [facility]01/2023 Acute upper respiratory infection, unspecifiedOther problems related to medical facilities and other health care No Data Available [facility]11/2023 Urinary tract infection, sit e not specifiedNausea No Data Available [facility]/11/2023 No Data Available [facility]20[place] Estab. patient 30-39min; chronic exacerbation, 2 stable chronic or 1 acute illness add add modifier 95 for video, (do not use for phone, instead use 09224-31) [facility]19[place]2023 Dorsalgia, unspecifiedOther chronic painSacroiliitis, not elsewhere classifiedOther senior living (current) drug therapyOther muscle spasmOpioid use, unspecified, uncomplicatedChronic obstructive pulmonary disease, unspecifiedOther problems related to medical facilities and other health careUrinary tract infection, site not specifiedNauseaPersonal history of nicotine dependence Estab. patient 30-39min; chronic exacerbation, 2 stable chronic or 1 acute illness add add modifier 95 for video, (do not use for phone, instead use 54169-20) [facility]19[place] Estab. patient 30-39min; chronic exacerbation, 2 stable chronic or 1 acute illness add add modifier 95 for video, (do not use for phone, instead use 24007-48) [facility]19[place]20[place] Estab. patient 30-39min; chronic exacerbation, 2 stable chronic or 1 acute illness add add modifier 95 for video, (do not use for phone, instead use 72932-63) [facility]19/20[place] Estab. patient 30-39min; chronic exacerbation, 2 stable chronic or 1 acute illness add add modifier 95 for video, (do not use for phone, instead use 59681-81) [facility]19[place] Estab. patient 30-39min; chronic exacerbation, 2 stable chronic or 1 acute illness add add modifier 95 for video, (do not use for phone, instead use 78556-39) [facility]19[place]20[place] Estab. patient 30-39min; chronic exacerbation, 2 stable chronic or 1 acute illness add add modifier 95 for video, (do not use for phone, instead use 77848-23) [facility]19[place]20[place] Estab. patient 30-39min; chronic exacerbation, 2 stable chronic or 1 acute illness add add modifier 95 for video, (do not use for phone, instead use 79841-30) [facility]19[place]20[place] Estab. patient 30-39min; chronic exacerbation, 2 stable chronic or 1 acute illness add add modifier 95 for video, (do not use for phone, instead use 81142-17) [facility]19[place]20[place] Estab. patient 30-39min; chronic exacerbation, 2 stable chronic or 1 acute illness add add modifier 95 for video, (do not use for phone, instead use 28095-84) [facility]19[place]2023 No Data Available [facility]2023 Sacroiliitis, not elsewhere classifiedDorsalgia, unspecifiedOther chronic painOther muscle spasmOpioid use, unspecified, uncomplicatedUrinary tract infection, site not specifiedNausea No Data Available [facility]20[place]2023 No Data Available [facility]2023 No Data Available [facility]2023 No Data Available [facility]/2023 Dorsalgia, unspecifiedOther chronic painSacroiliitis, not elsewhere classifiedOther muscle spasmOpioid use, unspecified, uncomplicatedUrinary tract infection, site not specifiedNauseaOther problems related to medical facilities and other health care No Data Available [facility]/22/2023 No Data Available [facility]/09/2024 Dorsalgia, unspecifiedOther problems related to medical facilities and other health careOther chronic painSacroiliitis, not elsewhere classifiedOther muscle spasmOpioid use, unspecified, uncomplicated No Data Available [facility]09/2024 Estab. patient 10-29min; 1 minor problem; add add modifier 95 for video, modifier 93 for phone [facility] 02/20/2024 Chronic obstructive pulmonar y disease, [...] elsewhere classifiedOther muscle spasmOpioid use, unspecified, uncomplicatedOther senior living (current) drug therapyChronic obstructive pulmonary disease, unspecifiedAcute [...] 95 for video, modifier 93 for phone [facility] ([place] 04/26/2024 Vital Signs Date of Collection [...] tive Time Current Smoking Status Former smoker 2025-04-3 0 Sex Female History of Procedures Procedures Service Procedure code Service date Servicing provider Phone# New patient,40-59min; chronic exacerbation, 2 stable chronic or 1 acute illness add add modifier 95 for video (do not use for phone, instead use 30998-71) [id number] 2021-12-30 No Data Available No Data Availa [...] (do not use for phone, instead use 07775-46) 91412 2023-01-26 No Data Available No Data Availa ble Medication List Documented (1159F) 1159F 2023-01-26 No Data Available No Data Cecliia ilable Medication Review by prescribing provider or [...] (do not use for phone, instead use 81391-51) 02050 2023-02-03 No Data Available No Data Availa [...] No Data Avail able No Data Available [id number] 2023-02-10 No Data Available No Data Available Pain Assessment - Pain Documented on a Pain Scale (1125F) 1125F 2023-02-10 No Data Available No Data Cecilia ilable Medication List Documented (1159F) 1159F 2023-02-10 No Data Available No Data Cecilia ilable No Data Available [id number] 2023-08-10 No Data Available No Data Available Medication List Documented (1159F) 1159F 2023-08-10 No Data Available No Data Cecilia ilable No Data Available [id number] 2023-08-24 No Data Available No Data Available SBP < 130 (3074F) 3074F 2023-08-24 No Data Available No Data Available DBP 80-89 (3079F) 3079F 2023-08-24 No Data Available No Data Available No Data Available [id number] 2023-09-01 No Data Available No Data Available No Data Available 13586 2023-10-11 No Data Available No Data Available SBP >= 140 3077F 2023-10-11 No Data Available No Data Available DBP >=90 3080F 2023-10-11 No Data Available No Data Available Estab. patient 30-39min; chronic exacerbation, 2 stable chronic or 1 acute illness add add modifier 95 for video, (do not use for phone, instead use 57578-52) 43235 2023-10-19 No Data Available No Data Availa [...] No Data Availa ble No Data Available [id number] 2023-11-20 No Data Available No Data Available Medication List Documented (1159F) 1159F 2023-11-20 No Data Available No Data Cecilia ilable SBP < 130 (3074F) 3074F 2023-11-20 No Data Available No Data Available DBP 80-89 (3079F) 3079F 2023-11-20 No Data Available No Data Available No Data Available 77913 2023-11-22 No Data Available No Data Available Medication List Documented (1159F) 1159F 2023-11-22 No Data Available No Data Cecilia ilable No Data Available [id number] 2024-01-09 No Data Available No Data Available Medication List Documented (1159F) 1159F 2024-01-09 No Data Available No Data Cecilia ilable Estab. patient 10-29min; 1 minor problem; add add modifier 95 for video, modifier 93 for phone 04772 2024-02-20 No Data Available No Data Availa ble Medication List Documented (1159F) 1159F 2024-02-20 No Data Available No Data Cecilia ilable BMI obtained (3008F) 3008F 2024-02-20 No Data Availab le No Data Available Estab. patient 10-29min; 1 minor problem; add add modifier 95 for video, modifier 93 for phone 13661 2024-03-04 No Data Available No Data Availa ble Estab. patient 20-29min; 1 stable chronic or 2 minor; add add modifier 95 for video, modifier 93 for phone 30384 2024-04-26 No Data Available No Data Availa [...] orally BID PRN muscle spasms/pain #30 tablet XGz9aVy New Tylenol Extra Strength 500 mg Tab 2 tablet orally q 6hrs prn pain/fever #30 tablet OLe8mMa New Diclofenac Sodium 1 % Gel 4 grams topically to affected area 4 times per day PRN #100 gram MIa6yJr New Lidocaine 5 % Oint apply thin film to affected area TID prn pain #50 gram SYe7yXf New predniSONE 20 mg Tab Take 2 tablets twice daily for 3 days, 1 tablet twice daily for 2 days, and 1 tablet daily for 2 days. #18 tab YEh6rcwwpiyi plan of care and conservative measures for [...] needs that may arise 06/09.UTI (urinary tract infection)Gtmpvi9410/11/2023eRx New Tylenol Extra Strength 500 mg Tab 2 tablet orally Q6hrs prn pain/fever #30 tablet NEn6eSx New Ondansetron 8 mg Tab Disintegrating 1 tablet orally every 8 hours as needed nausea #30 tablet UZy0wSq New Macrobid 100 mg Cap Take 1 [...] sedationFor many years.Now at pain clinic in [facility], began seeing them on 12/07.On TramadolTizanindineGabapentinClonazepamTramadolTizanindineGabapentinClonazepa [...] sedationFor many years.Now at pain clinic in [facility], began seeing them on 12/07.On TramadolTizanindineGabapentinClonazepamTramadolTizanindineGabapentinClonazepa [...] sedationFor many years.Now at pain clinic in [facility], began seeing them on 12/07.On HsahkrgaPzibsqyheepBnsxbazernMwhhnrujzg03/21/2023ontinues with pain, poor historian, unclear how much pain she is having today, appears to be active but zhdijaIkxpwydkLndgiweaiblPvmnwgmfjcXswxvofsnq51/21/2023ontinues with pain, pls cont tx as prescribed, [...] + days. Inhaler puffer 4/ day for wbabsxagtgbnwin20/21/2023Very difficult to assess. Not a relieble historian, [...] modifier 95)Continue [facility] see [facility]CP. [facility] or [facility] [...] + days. Inhaler puffer 4/ day for wpjqfcpovbauoeb79/21/2023Very difficult to assess. Not a relieble historian, [...] inhalers/nebs.We will F/U next week.02/10 stable has richpwijPtyoavpsGfavoslvkabRkorlvshbjHxotcwtmzp89/21/2023ontinues with pain, pls cont tx as prescribed, reports she was told that PT was not viable. Will investigate.02/10 has had this for years, will refer to neurologist, denies any bowel or bladder dysfunctionFor many years.Now at pain clinic in [facility], began seeing them on 12/07.On WrcwookoVlxdzjhbzugUgyslomaqiQjaqigotqi22/21/2023ontinues with pain, poor historian, unclear how much pain she is having today, appears to be active but gvucvh27/28 for many years will refer to neurologist [...] orally BID PRN muscle spasms/pain #30 tablet TKr5wJh New Tylenol Extra Strength 500 mg Tab 2 tablet orally q 6hrs prn pain/fever #30 tablet CHk8fVk New Diclofenac Sodium 1 % Gel 4 grams topically to affected area 4 times per day PRN #100 gram LZo9tEj New Lidocaine 5 % Oint apply thin film to affected area TID prn pain #50 gram ZIw8sDx New predniSONE 20 mg Tab Take 2 tablets twice daily for 3 days, 1 tablet twice daily for 2 days, and 1 tablet daily for 2 days. #18 tab FJi7xqglrlub plan of care and conservative measures for [...] abd pain. [facility]. Follow-[facility] with [facility] [...] tablet orally Q6hrs prn pain/fever #30 tablet BJe5kWt New Ondansetron 8 mg Tab Disintegrating 1 tablet orally every 8 hours as needed nausea #30 tablet MSk1eYs New Macrobid 100 mg Cap Take 1 [...] orally BID PRN muscle spasms/pain #30 tablet RRo6bOh New Tylenol Extra Strength 500 mg Tab 2 tablet orally q 6hrs prn pain/fever #30 tablet DZa0cQm New Diclofenac Sodium 1 % Gel 4 grams topically to affected area 4 times per day PRN #100 gram KHa5xNl New Lidocaine 5 % Oint apply thin film to affected area TID prn pain #50 gram AGh2iZd New predniSONE 20 mg Tab Take 2 tablets twice daily for 3 days, 1 tablet twice daily for 2 days, and 1 tablet daily for 2 days. #18 tab GUx6byhqhsja plan of care and conservative measures for [...] tablet orally Q6hrs prn pain/fever #30 tablet EBj7vHt New Ondansetron 8 mg Tab Disintegrating 1 tablet orally every 8 hours as needed nausea #30 tablet ITu2zGw New Macrobid 100 mg Cap Take 1 [...] orally BID PRN muscle spasms/pain #30 tablet ZMm3kUs New Tylenol Extra Strength 500 mg Tab 2 tablet orally q 6hrs prn pain/fever #30 tablet FSm5cGh New Diclofenac Sodium 1 % Gel 4 grams topically to affected area 4 times per day PRN #100 gram FHp0uQg New Lidocaine 5 % Oint apply thin film to affected area TID prn pain #50 gram DBj6zBu New predniSONE 20 mg Tab Take 2 tablets twice daily for 3 days, 1 tablet twice daily for 2 days, and 1 tablet daily for 2 days. #18 tab FQl1ypgasbsn plan of care and conservative measures for [...] tablet orally Q6hrs prn pain/fever #30 tablet UId6qWb New Ondansetron 8 mg Tab Disintegrating 1 tablet orally every 8 hours as needed nausea #30 tablet GQx7fSx New Macrobid 100 mg Cap Take 1 tablet PO twice daily for 7 days. #14 tablet RFx10/19/23: Improved per pt, denies ss today. 11/20/23:Member describing dysuria and recurrent UTI symptomsStart bactrim DS BID x 5 daysEncouraged increased fluid intake, especially waterAPP f/u is scheduled for 11/21 regarding back symptoms, but can call back sooner for any new or worsened iwscagdh67/8/24: Symptoms began 2 days ago on Tuesday. [...] low abd pain. Please remember to call [facility] to see PCP. Follow-up with [facility] as [...] orally BID PRN muscle spasms/pain #30 tablet LRh4mOp New Tylenol Extra Strength 500 mg Tab 2 tablet orally q 6hrs prn pain/fever #30 tablet BDb6iJo New Diclofenac Sodium 1 % Gel 4 grams topically to affected area 4 times per day PRN #100 gram HLm9qPp New Lidocaine 5 % Oint apply thin film to affected area TID prn pain #50 gram CGe0tFq New predniSONE 20 mg Tab Take 2 tablets twice daily for 3 days, 1 tablet twice daily for 2 days, and 1 tablet daily for 2 days. #18 tab FIv7saqtnyzn plan of care and conservative measures for [...] low abd pain. Please remember to call [facility] to see PCP. Follow-up with [facility] as [...] orally BID PRN muscle spasms/pain #30 tablet OIi1eTe New Tylenol Extra Strength 500 mg Tab 2 tablet orally q 6hrs prn pain/fever #30 tablet LWv1xFt New Diclofenac Sodium 1 % Gel 4 grams topically to affected area 4 times per day PRN #100 gram QRv5mPd New Lidocaine 5 % Oint apply thin film to affected area TID prn pain #50 gram IOm8mHm New predniSONE 20 mg Tab Take 2 tablets twice daily for 3 days, 1 tablet twice daily for 2 days, and 1 tablet daily for 2 days. #18 tab EIw0wczpnddl plan of care and conservative measures for [...] 45 tabs. Will refill rx, sent to [facility].When member to call: 1. If bp is elevated sbp>150; dbp>90 or symptomatic-h/a, dizziness, cp, sob. 2. if there is a fall 3. if BS >300 or BS<90 or symptomatic; i.e., dizzy, off balance , shaky, general weakness. 4. if UTI symptoms arise-urinary frequency, dysuria, low abd pain. [facility] Follow-up with [facility] as [...] in each nostril twice daily #1 each NQa5Iufdfp Promethazine-DM 6.25/15 mg/5ML Syrup 5 ml orally every 4-6 hours as needed for cough #200 ml GXq0Neb use cool mist vaporizer/humidifier next to bed [...] 45 tabs. Will refill rx, sent to [facility].04/26/24: Tizanidine helps more than Flexeril. I last filled on 03/06/24 for 45 tabs, member requesting refill today, tolerating.Has been taking clonazepam for 10+ yearsDiscussed risk of sedationRx: Breo Elipta, Albuterol HFA PRN, Levalbuterol [facility] pulmonology follow up04/26/24: Saw her pulm today, she has URI symptoms. Has prescribed steroids but they do not agree with her stomach.03/04/24- Azelastine 0.1 % Solution Nasal use 2 sprays in each nostril twice daily #1 each WNy2Gyabxg Promethazine-DM 6.25/15 mg/5ML Syrup 5 ml orally every 4-6 hours as needed for cough #200 ml WNf2Ixv use cool mist vaporizer/humidifier next to bed [...] eview: Closed 2024-04-26 ECCA completed with BERTO education technician and member
== END 2024-06-13 13:36 | disposition home or self-care (01) ==
LOC: HO.HMCH 12:49
PROVIDERS: PCP Internal Medicine; Visit Provider Internal Medicine
DX: Z00.00 Encounter for general adult medical examination without abnormal findings (principal); K74.60 Unspecified cirrhosis of liver; J43.2 Centrilobular emphysema; F33.0 Major depressive disorder, recurrent, mild; M47.816 Spondylosis without myelopathy or radiculopathy, lumbar region

== ENCOUNTER → 2024-06-13 12:48 | Outpatient (BNVA) | payer OTHER, SELFPAY | PROVIDERS: PCP Internal Medicine; Visit Provider Internal Medicine | DX: Z00.00 Encounter for general adult medical examination without abnormal findings (principal); K74.60 Unspecified cirrhosis of liver; J43.2 Centrilobular emphysema; F33.0 Major depressive disorder, recurrent, mild; M47.816 Spondylosis without myelopathy or radiculopathy, lumbar region | CPT/HCPCS: 96127; 99212; 99397 ==

== ENCOUNTER 2024-06-20 08:25 | Outpatient (REF) | payer OTHER, SELFPAY ==
--- OUTSIDE RECORDS SUMMARY | 2024-06-20 08:36 | XMS_ITS ---
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 Name Role Phone Nia Holley Unavailable [phone] Colette Esteves Unavailable [phone] Unavailable Unavailable Unavailable SUSAN IBARRA Unavailable [phone] Unavailable Unavailable [phone] Reason for Referral Not Available Allergies, adverse [...] on days 2-5 2023-08-24 2024-03-04 Polymyxin B-Trimethoprim 92110-9.1 UNIT/ML-% Solution Ophthalmic 1 drop ophthalmically into [...] MOUTH TWICE DAILY 2024-04-10 No Data Available Xuvkspkq-Zvfzwlhuh-IN 3.5-49099-1 Suspension SHAKE LIQUID AND INSTILL 4 DROPS [...] Active 2023-01-26 N/A Other problems related to nc dical facilities and other health care Active 2023-09-01 N/A Chronic back pain greater th an 3 months durationBilateral sacroiliitisMuscle spasms of both lower extremitiesOpioid use Active 2021-12-30 N/A Encounters Encounters Type Facility Date of Service Diagnosis/Co mplaint New patient,40-59min; chronic exacerbation, 2 stable chronic or 1 acute illness add add modifier 95 for video (do not use for phone, instead use 20935-69) [facility] Opioid dependence, uncomplicatedLong term (current) use of opiate analgesicSedative, hypnotic or anxiolytic dependence, uncomplicatedDorsalgia, unspecifiedSciatica, unspecified sideSacroiliitis, not elsewhere classified New patient,40-59min; chronic exacerbation, 2 stable chronic or 1 acute illness add add modifier 95 for video (do not use for phone, instead use 97290-52) [facility] New patient,40-59min; chronic exacerbation, 2 stable chronic or 1 acute illness add add modifier 95 for video (do not use for phone, instead use 76723-16) [facility] New patient,40-59min; chronic exacerbation, 2 stable chronic or 1 acute illness add add modifier 95 for video (do not use for phone, instead use 03808-27) [facility] New patient,40-59min; chronic exacerbation, 2 stable chronic or 1 acute illness add add modifier 95 for video (do not use for phone, instead use 60862-47) [facility] New patient,40-59min; chronic exacerbation, 2 stable chronic or 1 acute illness add add modifier 95 for video (do not use for phone, instead use 54520-86) [facility] New patient,40-59min; chronic exacerbation, 2 stable chronic or 1 acute illness add add modifier 95 for video (do not use for phone, instead use 82512-50) [facility] New patient,40-59min; chronic exacerbation, 2 stable chronic or 1 acute illness add add modifier 95 for video (do not use for phone, instead use 78728-31) [facility] New patient,40-59min; chronic exacerbation, 2 stable chronic or 1 acute illness add add modifier 95 for video (do not use for phone, instead use 07817-68) [facility] Estab. patient 30-39min; chronic exacerbation, 2 stable chronic or 1 acute illness add add modifier 95 for video, (do not use for phone, instead use 27944-12) [facility]/2023 Opioid dependence, uncomplicatedLong term (current) use of opiate analgesicSedative, hypnotic or anxiolytic dependence, uncomplicatedDorsalgia, unspecifiedSciatica, unspecified sideSacroiliitis, not elsewhere classifiedChronic obstructive pulmonary disease, unspecifiedCough, unspecified Estab. patient 30-39min; chronic exacerbation, 2 stable chronic or 1 acute illness add add modifier 95 for video, (do not use for phone, instead use 79148-24) [facility] Estab. patient 30-39min; chronic exacerbation, 2 stable chronic or 1 acute illness add add modifier 95 for video, (do not use for phone, instead use 98327-87) [facility] Estab. patient 30-39min; chronic exacerbation, 2 stable chronic or 1 acute illness add add modifier 95 for video, (do not use for phone, instead use 39967-26) [facility] Estab. patient 30-39min; chronic exacerbation, 2 stable chronic or 1 acute illness add add modifier 95 for video, (do not use for phone, instead use 48948-18) [facility] Estab. patient 30-39min; chronic exacerbation, 2 stable chronic or 1 acute illness add add modifier 95 for video, (do not use for phone, instead use 82119-87) [facility] Estab. patient 30-39min; chronic exacerbation, 2 stable chronic or 1 acute illness add add modifier 95 for video, (do not use for phone, instead use 01710-14) [facility] Estab. patient 30-39min; chronic exacerbation, 2 stable chronic or 1 acute illness add add modifier 95 for video, (do not use for phone, instead use 83254-57) [facility] Estab. patient 30-39min; chronic exacerbation, 2 stable chronic or 1 acute illness add add modifier 95 for video, (do not use for phone, instead use 03083-79) [facility] Estab. patient 30-39min; chronic exacerbation, 2 stable chronic or 1 acute illness add add modifier 95 for video, (do not use for phone, instead use 16345-35) [facility] Estab. patient 30-39min; chronic exacerbation, 2 stable chronic or 1 acute illness add add modifier 95 for video, (do not use for phone, instead use 36175-37) [facility]2023 Dorsalgia, unspecifiedSciati ca, unspecified sideSacroiliitis, not elsewhere classifiedChronic obstructive pulmonary disease, unspecifiedLong term (current) use of opiate analgesicCough, unspecifiedOther fdc (current) drug therapy Estab. patient 30-39min; chronic exacerbation, 2 stable chronic or 1 acute illness add add modifier 95 for video, (do not use for phone, instead use 85466-99) [facility] Estab. patient 30-39min; chronic exacerbation, 2 stable chronic or 1 acute illness add add modifier 95 for video, (do not use for phone, instead use 70211-92) [facility] Estab. patient 30-39min; chronic exacerbation, 2 stable chronic or 1 acute illness add add modifier 95 for video, (do not use for phone, instead use 71591-38) [facility] Estab. patient 30-39min; chronic exacerbation, 2 stable chronic or 1 acute illness add add modifier 95 for video, (do not use for phone, instead use 64526-43) [facility] Estab. patient 30-39min; chronic exacerbation, 2 stable chronic or 1 acute illness add add modifier 95 for video, (do not use for phone, instead use 69536-70) [facility] Estab. patient 30-39min; chronic exacerbation, 2 stable chronic or 1 acute illness add add modifier 95 for video, (do not use for phone, instead use 61147-56) [facility] Estab. patient 30-39min; chronic exacerbation, 2 stable chronic or 1 acute illness add add modifier 95 for video, (do not use for phone, instead use 81299-86) [facility] 02[place]03[place]2023 No Data Available [facility]10[place]2023 Cough, unspecifiedSacroiliit is, not elsewhere classifiedDorsalgia, unspecifiedSciatica, unspecified side No Data Available [facility] 02[place]10/2023 No Data Available [facility]/10[place]2023 No Data Available [facility]2023 Dorsalgia, unspecifiedOther chronic painSacroiliitis, not elsewhere classifiedOther muscle spasmOpioid use, unspecified, uncomplicated No Data Available [facility] 08[place]10[place]2023 No Data Available [facility]2023 Acute upper respiratory infection, unspecified No Data Available [facility] 08[place]/2023 No Data Available [facility]2023 No Data Available [facility] 09[place]/2023 Acute upper respiratory infection, unspecifiedOther problems related to medical facilities and other health care No Data Available [facility]2023 Urinary tract infection, sit e not specifiedNausea No Data Available [facility]/11[place]2023 No Data Available [facility] Estab. patient 30-39min; chronic exacerbation, 2 stable chronic or 1 acute illness add add modifier 95 for video, (do not use for phone, instead use 18582-93) [facility]19[place]2023 Dorsalgia, unspecifiedOther chronic painSacroiliitis, not elsewhere classifiedOther fdc (current) drug therapyOther muscle spasmOpioid use, unspecified, uncomplicatedChronic obstructive pulmonary disease, unspecifiedOther problems related to medical facilities and other health careUrinary tract infection, site not specifiedNauseaPersonal history of nicotine dependence Estab. patient 30-39min; chronic exacerbation, 2 stable chronic or 1 acute illness add add modifier 95 for video, (do not use for phone, instead use 19897-63) [facility] Estab. patient 30-39min; chronic exacerbation, 2 stable chronic or 1 acute illness add add modifier 95 for video, (do not use for phone, instead use 15155-16) [facility]20[place] Estab. patient 30-39min; chronic exacerbation, 2 stable chronic or 1 acute illness add add modifier 95 for video, (do not use for phone, instead use 44042-17) [facility]20[place] Estab. patient 30-39min; chronic exacerbation, 2 stable chronic or 1 acute illness add add modifier 95 for video, (do not use for phone, instead use 56307-38) [facility] Estab. patient 30-39min; chronic exacerbation, 2 stable chronic or 1 acute illness add add modifier 95 for video, (do not use for phone, instead use 75762-50) [facility] Estab. patient 30-39min; chronic exacerbation, 2 stable chronic or 1 acute illness add add modifier 95 for video, (do not use for phone, instead use 56214-72) [facility]19[place] Estab. patient 30-39min; chronic exacerbation, 2 stable chronic or 1 acute illness add add modifier 95 for video, (do not use for phone, instead use 44591-55) [facility] Estab. patient 30-39min; chronic exacerbation, 2 stable chronic or 1 acute illness add add modifier 95 for video, (do not use for phone, instead use 05226-32) [facility] Estab. patient 30-39min; chronic exacerbation, 2 stable chronic or 1 acute illness add add modifier 95 for video, (do not use for phone, instead use 44714-27) [facility] No Data Available [facility] Sacroiliitis, not elsewhere classifiedDorsalgia, unspecifiedOther chronic painOther muscle spasmOpioid use, unspecified, uncomplicatedUrinary tract infection, site not specifiedNausea No Data Available [facility]20[place] No Data Available [facility]20[place] No Data Available [facility]20[place] No Data Available [facility]2023 Dorsalgia, unspecifiedOther chronic painSacroiliitis, not elsewhere classifiedOther muscle spasmOpioid use, unspecified, uncomplicatedUrinary tract infection, site not specifiedNauseaOther problems related to medical facilities and other health care No Data Available [facility]/2023 No Data Available [facility]/2024 Dorsalgia, unspecifiedOther problems related to medical facilities and other health careOther chronic painSacroiliitis, not elsewhere classifiedOther muscle spasmOpioid use, unspecified, uncomplicated No Data Available [facility]09/20[place] Estab. patient 10-29min; 1 minor problem; add add modifier 95 for video, modifier 93 for phone [facility] 02[place]/2024 Chronic obstructive pulmonar y disease, [...] elsewhere classifiedOther muscle spasmOpioid use, unspecified, uncomplicatedOther long term care administrator (current) drug therapyChronic obstructive pulmonary disease, unspecifiedAcute [...] 95 for video, modifier 93 for phone [facility] 04/[place]/2024 Vital Signs Date of Collection [...] tive Time Current Smoking Status Former smoker 2025-05-0 7 Sex Female History of Procedures Procedures Service Procedure code Service date Servicing provider Phone# New patient,40-59min; chronic exacerbation, 2 stable chronic or 1 acute illness add add modifier 95 for video (do not use for phone, instead use 05316-30) [id number] 2021-12-30 No Data Available No Data Availa [...] (do not use for phone, instead use 54196-92) [id number] 2023-01-26 No Data Available No Data Availa [...] (do not use for phone, instead use 65655-83) [id number] 2023-02-03 No Data Available No Data Availa [...] No Data Avail able No Data Available [id number] 2023-02-10 No Data Available No Data Available Pain Assessment - Pain Documented on a Pain Scale (1125F) 1125F 2023-02-10 No Data Available No Data Cecilia ilable Medication List Documented (1159F) 1159F 2023-02-10 No Data Available No Data Cecilia ilable No Data Available [id number] 2023-08-10 No Data Available No Data Available Medication List Documented (1159F) 1159F 2023-08-10 No Data Available No Data Cecilia ilable No Data Available [id number] 2023-08-24 No Data Available No Data Available SBP < 130 (3074F) 3074F 2023-08-24 No Data Available No Data Available DBP 80-89 (3079F) 3079F 2023-08-24 No Data Available No Data Available No Data Available [id number] 2023-09-01 No Data Available No Data Available No Data Available [id number] 2023-10-11 No Data Available No Data Available SBP >= 140 3077F 2023-10-11 No Data Available No Data Available DBP >=90 3080F 2023-10-11 No Data Available No Data Available Estab. patient 30-39min; chronic exacerbation, 2 stable chronic or 1 acute illness add add modifier 95 for video, (do not use for phone, instead use 51471-93) 04932 2023-10-19 No Data Available No Data Availa [...] No Data Availa ble No Data Available [id number] 2023-11-20 No Data Available No Data Available Medication List Documented (1159F) 1159F 2023-11-20 No Data Available No Data Cecilia ilable SBP < 130 (3074F) 3074F 2023-11-20 No Data Available No Data Available DBP 80-89 (3079F) 3079F 2023-11-20 No Data Available No Data Available No Data Available [id number] 2023-11-22 No Data Available No Data Available Medication List Documented (1159F) 1159F 2023-11-22 No Data Available No Data Cecilia ilable No Data Available [id number] 2024-01-09 No Data Available No Data Available Medication List Documented (1159F) 1159F 2024-01-09 No Data Available No Data Cecilia ilable Estab. patient 10-29min; 1 minor problem; add add modifier 95 for video, modifier 93 for phone 60212 2024-02-20 No Data Available No Data Availa ble Medication List Documented (1159F) 1159F 2024-02-20 No Data Available No Data Cecilia ilable BMI obtained (3008F) 3008F 2024-02-20 No Data Availab le No Data Available Estab. patient 10-29min; 1 minor problem; add add modifier 95 for video, modifier 93 for phone 40810 2024-03-04 No Data Available No Data Availa ble Estab. patient 20-29min; 1 stable chronic or 2 minor; add add modifier 95 for video, modifier 93 for phone [id number] 2024-04-26 No Data Available No Data Availa [...] orally BID PRN muscle spasms/pain #30 tablet WKu6vQr New Tylenol Extra Strength 500 mg Tab 2 tablet orally q 6hrs prn pain/fever #30 tablet YIy5aCs New Diclofenac Sodium 1 % Gel 4 grams topically to affected area 4 times per day PRN #100 gram GZx1oGb New Lidocaine 5 % Oint apply thin film to affected area TID prn pain #50 gram NCt0oDs New predniSONE 20 mg Tab Take 2 tablets twice daily for 3 days, 1 tablet twice daily for 2 days, and 1 tablet daily for 2 days. #18 tab XXf6zgjnidzb plan of care and conservative measures for [...] needs that may arise 06/09.UTI (urinary tract infection)Qvwpqa8110/11/2023eRx New Tylenol Extra Strength 500 mg Tab 2 tablet orally Q6hrs prn pain/fever #30 tablet BNw0wEh New Ondansetron 8 mg Tab Disintegrating 1 tablet orally every 8 hours as needed nausea #30 tablet EAy8aSv New Macrobid 100 mg Cap Take 1 [...] sedationFor many years.Now at pain clinic in [facility], began seeing them on 12/07.On TramadolTizanindineGabapentinClonazepamTramadolTizanindineGabapentinClonazepa [...] sedationFor many years.Now at pain clinic in [facility], began seeing them on 12/07.On TramadolTizanindineGabapentinClonazepamTramadolTizanindineGabapentinClonazepa [...] sedationFor many years.Now at pain clinic in [facility], began seeing them on 12/07.On LhrenqmzKywueuhdfyxFmtzxxfhpiSxlopdocyg56/21/2023ontinues with pain, poor historian, unclear how much pain she is having today, appears to be active but amurjqRtqcfrbnOxpyzuuknlwHxizlpfspoBeqrzjtbwh53/21/2023ontinues with pain, pls cont tx as prescribed, [...] + days. Inhaler puffer 4/ day for pjivywclwsrkrsb22/21/2023Very difficult to assess. Not a relieble historian, [...] modifier 95)Continue to see [facility]CP. [facility] any acute or disease [...] + days. Inhaler puffer 4/ day for hwdqmffbiewqyzj97/21/2023Very difficult to assess. Not a relieble historian, [...] inhalers/nebs.We will F/U next week.02/10 stable has gjieandqVqpammaoYhgmnovzaqiDzpfuerzbvKcpzcnoemd95/21/2023ontinues with pain, pls cont tx as prescribed, reports she was told that PT was not viable. Will investigate.02/10 has had this for years, will refer to neurologist, denies any bowel or bladder dysfunctionFor many years.Now at pain clinic in [facility], began seeing them on 12/07.On QnomjyahXzbeanwvhnzWzcehfvustBjonyuuitx53/21/2023ontinues with pain, poor historian, unclear how much pain she is having today, appears to be active but /28 for many years will refer to neurologist [...] orally BID PRN muscle spasms/pain #30 tablet XUm2oOx New Tylenol Extra Strength 500 mg Tab 2 tablet orally q 6hrs prn pain/fever #30 tablet BNm6zLn New Diclofenac Sodium 1 % Gel 4 grams topically to affected area 4 times per day PRN #100 gram HRo5wNk New Lidocaine 5 % Oint apply thin film to affected area TID prn pain #50 gram TYs3kWv New predniSONE 20 mg Tab Take 2 tablets twice daily for 3 days, 1 tablet twice daily for 2 days, and 1 tablet daily for 2 days. #18 tab BJl0ocxixwdo plan of care and conservative measures for [...] low abd pain. [facility]. Follow-up with [facility] [...] tablet orally Q6hrs prn pain/fever #30 tablet EHw6hIy New Ondansetron 8 mg Tab Disintegrating 1 tablet orally every 8 hours as needed nausea #30 tablet HTq5pOl New Macrobid 100 mg Cap Take 1 [...] orally BID PRN muscle spasms/pain #30 tablet DPc6fBr New Tylenol Extra Strength 500 mg Tab 2 tablet orally q 6hrs prn pain/fever #30 tablet SGl1oJb New Diclofenac Sodium 1 % Gel 4 grams topically to affected area 4 times per day PRN #100 gram ECe8jBb New Lidocaine 5 % Oint apply thin film to affected area TID prn pain #50 gram UCg0zAn New predniSONE 20 mg Tab Take 2 tablets twice daily for 3 days, 1 tablet twice daily for 2 days, and 1 tablet daily for 2 days. #18 tab RMv1iuefgnps plan of care and conservative measures for [...] tablet orally Q6hrs prn pain/fever #30 tablet YVq5qRz New Ondansetron 8 mg Tab Disintegrating 1 tablet orally every 8 hours as needed nausea #30 tablet SKc5fCi New Macrobid 100 mg Cap Take 1 [...] orally BID PRN muscle spasms/pain #30 tablet TIs3aJp New Tylenol Extra Strength 500 mg Tab 2 tablet orally q 6hrs prn pain/fever #30 tablet NMg3pHq New Diclofenac Sodium 1 % Gel 4 grams topically to affected area 4 times per day PRN #100 gram PRb9bLc New Lidocaine 5 % Oint apply thin film to affected area TID prn pain #50 gram CHj6zZm New predniSONE 20 mg Tab Take 2 tablets twice daily for 3 days, 1 tablet twice daily for 2 days, and 1 tablet daily for 2 days. #18 tab QDz9qytlgyys plan of care and conservative measures for [...] tablet orally Q6hrs prn pain/fever #30 tablet WUg8oPm New Ondansetron 8 mg Tab Disintegrating 1 tablet orally every 8 hours as needed nausea #30 tablet ZCw1kAr New Macrobid 100 mg Cap Take 1 tablet PO twice daily for 7 days. #14 tablet RFx10/19/23: Improved per pt, denies ss today. 11/20/23:Member describing dysuria and recurrent UTI symptomsStart bactrim DS BID x 5 daysEncouraged increased fluid intake, especially waterAPP f/u is scheduled for 11/21 regarding back symptoms, but can call back sooner for any new or worsened duxhqmtb24/8/24: Symptoms began 2 days ago on Tuesday. [...] pain. Please remember to call [facility] to see PCP. Follow-up with Mare [...] orally BID PRN muscle spasms/pain #30 tablet EPc6mKm New Tylenol Extra Strength 500 mg Tab 2 tablet orally q 6hrs prn pain/fever #30 tablet EFq2kKd New Diclofenac Sodium 1 % Gel 4 grams topically to affected area 4 times per day PRN #100 gram KWg0dHt New Lidocaine 5 % Oint apply thin film to affected area TID prn pain #50 gram WWk0sNf New predniSONE 20 mg Tab Take 2 tablets twice daily for 3 days, 1 tablet twice daily for 2 days, and 1 tablet daily for 2 days. #18 tab RMy6dpojfqvl plan of care and conservative measures for [...] pain. Please remember to call [facility] to see PCP. Follow-up with Mare [...] orally BID PRN muscle spasms/pain #30 tablet ZBy8wQk New Tylenol Extra Strength 500 mg Tab 2 tablet orally q 6hrs prn pain/fever #30 tablet VJb7tTo New Diclofenac Sodium 1 % Gel 4 grams topically to affected area 4 times per day PRN #100 gram DLe7aGv New Lidocaine 5 % Oint apply thin film to affected area TID prn pain #50 gram RIj0zRa New predniSONE 20 mg Tab Take 2 tablets twice daily for 3 days, 1 tablet twice daily for 2 days, and 1 tablet daily for 2 days. #18 tab VUu6qbsghvly plan of care and conservative measures for [...] 45 tabs. Will refill rx, sent to [facility].When member to call: 1. If bp is elevated sbp>150; dbp>90 or symptomatic-h/a, dizziness, cp, sob. 2. if there is a fall 3. if BS >300 or BS<90 or symptomatic; i.e., dizzy, off balance , shaky, general weakness. 4. if UTI symptoms arise-urinary frequency, dysuria, low abd pain. [facility] Follow-up with M[facility] [...] in each nostril twice daily #1 each BAc4Momppx Promethazine-DM 6.25/15 mg/5ML Syrup 5 ml orally every 4-6 hours as needed for cough #200 ml CPh3Vbi use cool mist vaporizer/humidifier next to bed [...] 45 tabs. Will refill rx, sent to [facility].04/26/24: Tizanidine helps more than Flexeril. I last filled on 03/06/24 for 45 tabs, member requesting refill today, tolerating.Has been taking clonazepam for 10+ yearsDiscussed risk of sedationRx: Breo Elipta, Albuterol HFA PRN, Levalbuterol [facility] pulmonology follow up04/26/24: Saw her pulm today, she has URI symptoms. Has prescribed steroids but they do not agree with her stomach.03/04/24- Azelastine 0.1 % Solution Nasal use 2 sprays in each nostril twice daily #1 each VVg8Nhnvsp Promethazine-DM 6.25/15 mg/5ML Syrup 5 ml orally every 4-6 hours as needed for cough #200 ml OCg0Npa use cool mist vaporizer/humidifier next to bed [...] eview: Closed 2024-04-26 ECCA completed with BERTO full time staff interpreter and member
[2024-06-20 09:45] LABS: Alanine Aminotransferase 24 U/L (0-31); Albumin Level 4.4 g/dL (3.5-5.0); Alkaline Phosphatase 118 U/L (39-117); Anion Gap 11 (12-20); Aspartate Amino Transferase 27 U/L (5-31); Bilirubin Total 0.5 mg/dL (0.0-1.0); Blood Urea Nitrogen 9 mg/dL (9-16); Calcium 9.5 mg/dL (8.4-10.2); Carbon Dioxide 27 mmol/L (22-29); Chloride 108 mmol/L (96-108); Cholesterol 200 mg/dL (<200); Estimated Glomerular Filt Rate > 60; Glucose Fasting 101 mg/dL (60-99); HDL Cholesterol 62 mg/dL (>40); LDL Cholesterol Calculated 122 mg/dL (<100); Potassium 3.7 mmol/L (3.3-5.1); Sodium 142 mmol/L (135-145); Total Protein 7.4 g/dL (6.5-8.0); Triglycerides 84 mg/dL (<150)
[2024-06-20 10:00] LABS: Vitamin D 25-OH Total 20.2 ng/mL (>30)
== END 2024-06-20 08:26 | disposition home or self-care (01) ==
LOC: HO.LAB 08:25
PROVIDERS: PCP Internal Medicine; Visit Provider Internal Medicine
DX: Z00.00 Encounter for general adult medical examination without abnormal findings (principal); E78.5 Hyperlipidemia, unspecified; E55.9 Vitamin D deficiency, unspecified
CPT/HCPCS: 36415; 80053; 80061; 82306

== ENCOUNTER 2024-07-03 14:36 | Outpatient (AMB) | payer OTHER, SELFPAY ==
[2024-07-03 14:46] VITALS: BP 120/66; PULSE 96; O2SAT 99; BMI 26.6
--- NOTE | 2024-07-03 14:46 | MHC.OFFVIS ---
Vital Signs 07/03/24 14:46 Height 5 ft Weight 136 lb 7.458 oz BMI 26.6 BP 120/66 Blood Pressure Location Lt brachial Position Sitting Pulse 96 Pulse Source Pulse Oximeter Pulse Oximetry (%) 99 Oxygen Delivery Method Room Air Intake Visit Reasons: To much pain in bones/Per MD approved .. Intake Note: Patient presents today for follow up on osteoarthritis. Patient states the pain has been going on for a long time in legs and arms. Alumni Relations Coordinator Services: Alumni Relations Coordinator Offered & Declined Alumni Relations Coordinator Name: josh daughter Allergies naproxen Allergy (Intermediate, Verified 07/03/24 14:51) abdominal pain ibuprofen [From Motrin] Adverse Reaction (Mild, Verified 07/03/24 14:51) stomach pain Medication List - Last Reconciled 07/03/24 by Dominique Todd MD albuterol sulfate 90 mcg/actuation 2 inhalations inhalation Q6H PRN 30 days aspirin 81 mg PO DAILY 90 days bisacodyl (Dulcolax (bisacodyl)) 10 mg (2 x 5 mg) PO BEDTIME 30 days calcium carbonate-vitamin D3 250 mg-3.125 mcg (125 unit) (Oyster Shell Calcium-Vitamin D3) 1 tab PO BID 90 days cane quad cane cetirizine (All Day Allergy (cetirizine)) 10 mg PO DAILY PRN 90 days clonazepam 1 mg PO BEDTIME PRN 30 days diclofenac sodium 1% (Arthritis Pain (diclofenac)) 4 grams topical QID fluticasone furoate-vilanterol 200-25 mcg/dose (Breo Ellipta) 1 inh inhalation DAILY 30 days gabapentin 300 mg PO BEDTIME 30 days Grab bar As directed hydrocortisone 1% (Anti-Itch (hydrocortisone)) 1 appl topical BID PRN 30 days incontinence pad, liner, disp Use 1 pad three times a day incontinence pad, liner, disp Use 1 pad three times a day levalbuterol HCl 1.25 mg (3 mL) inhalation BID 30 days lidocaine 5% 2 patches topical DAILY 30 days nebulizers As directed [raised toilet seat As directed] roflumilast 500 mcg PO DAILY simethicone 180 mg PO QID 30 days tramadol 50 mg PO BID 30 days [wipes As directed] HPI Comments Details: Patient is a 73-year-old female with obstructive sleep apnea, bilateral carpal tunnel, spinal osteoarthritis with DISH, polyarticular OA, emphysema, liver cirrhosis, depression with anxiety and psoriasis here today for follow up Interval History: Patient last seen 05/04/2024 with me. At that time she was establishing care for polyarticular osteoarthritis specifically she was complaining of right 1st CMC joint pain for which she received a steroid injection. Today she is here for follow up complaining of widespread pain The steroid injection did not help much Rheumatologic History: Polyarticular osteoarthritis Current Rheumatology Medication(s): [facility] Medical History (Updated 06/26/24 @ 07:47 by Zoe Dillard MD) Sacroiliitis Physical exam Chest pain Blurry vision Abnormal chest x-ray Pre-op examination Emphysema of lung Thoracic back pain Muscle spasm Back pain Chronic restrictive lung disease Temporomandibular joint (TMJ) pain Anemia Osteopenia Postmenopausal Obese Chronic pain syndrome Hypovitaminosis D Depression with anxiety Surgical History H/O colonoscopy S/P FARRAH-[id number] (total abdominal hysterectomy and bilateral salpingo-oophorectomy) Family History Father No problems noted. Mother Emphysema lung Sister Colon cancer Social History Housing: Apartment Alcohol intake: never Patient Tobacco Use Status: Former Tobacco user Tobacco use type: Cigarette e-Cigarette/Vaping Use: Never Used Second Hand Smoke Exposure: No Advance Directives Date on File: 01/12/22 service: No Current occupational status: unemployed Cognitive needs: Yes Hearing needs: No Vision needs: No Review of Systems Const Details: Review of Systems Constitutional: Denies fever, chills, weight loss ENT: Denies vision changes, eye pain or eye redness, dental caries, dry mouth GI: Denies nausea, vomiting, diarrhea, abdominal pain, change in BM Pulm: Denies SOB, [place], hemoptysis, wheezing Cards: Denies chest pain, palpitations Skin: Denies Raynaud's, rash, nail changes, photosensitivity, SPRING UP SUPERVISOR: Denies headaches, weakness, paresthesias, recurrent falls MSK: as per HPI All other systems reviewed and are unremarkable except noted above Physical Exam Vital Signs: Last Vital Signs Pulse 96 07/03/24 14:46 BP 120/66 07/03/24 14:46 Pulse Ox 99 07/03/24 14:46 Oxygen Delivery Method Room Air 07/03/24 14:46 BMI result Body Mass Index 26.6 Vital signs reviewed Physical Examination CONSTITUITIONAL Patient alert and cooperative. Well appearing and in no apparent painful distress HEENT Conjunctiva and sclera clear. ?Pupils equal round and reactive to light. ?No lymphadenopathy. ? CHEST/RESPIRATORY SYSTEM Normal respiratory effort and able to speak in complete sentences. ?Clear to auscultation bilaterally. ?No crackles, rales, rhonchi, wheezes heard. CARDIAC SYSTEM Regular rate and rhythm. ?S1 and S2 heard no murmurs. ?Radial pulses intact bilaterally MSK Hands: Heberden's nodes noted throughout. No synovitis noted to the MCPs, PIPs or DIPs. Tenderness to palpation of bilateral 1st CMC Wrists: ?Full range of motion at the wrists without pain. ?No tenderness to palpation or synovitis noted to the wrists. Elbows: Full range of motion without pain. No tenderness, weakness, swelling, increased warmth or erythema. Shoulders: Full range of motion without pain. No tenderness, weakness, swelling, increased warmth or erythema. Knees: ?Full range of motion. ?No tenderness, swelling, increased warmth or erythema.? Bilateral crepitations felt Ankles: Full range of motion. ?No tenderness, swelling, increased warmth or erythema.? Feet: ?Negative squeeze test. ?No tenderness to palpation or swelling of the MTPs. Tender points:?Tenderness to palpation of the bilateral trapezius, supraspinatus, bilateral gluteal areas, bilateral suboccipital muscle insertions SKIN Skin intact without rashes. Results Reviewed Results Reviewed: No recent labs to review Assessment & Plan Assessment & Plan (1) Polyarthralgia: Code(s): M25.50 - Pain in unspecified joint Category: Medical Plan: #Polyarthralgia Patient is a 73-year-old female with widespread polyarthralgias consistent with fibromyalgia. Has tried several interventions including steroid injections, pain management evaluations and others without any significant relief. Had a serious discussion with the patient and her daughter that there is likely no medication that will completely rid her of her pain. Has tried Flexeril with no relief and given her significant cirrhotic liver I am wary to try any narcotics and or any more muscle relaxants. The complaints today definitely seem sciatica nerve based type pains with worsening at night. We will try pregabalin. We will also check labs to ensure that we are not missing an underlying autoimmune or autoinflammatory condition Plan - check CBC, CMP, ESR, CRP, SPEP, RF, CCP, ZOE - pregabalin 25 mg b.i.d., to start with 25 mg at night for 2 weeks then increase to 25 mg b.i.d. once tolerated - RTC 6 months Plan I spent 22 minutes reviewing the record and labs, taking a history, examining the patient, discussing the treatment plan, ordering diagnostic work up and documenting in the medical record Orders: Orders ZOE Reflex Titer and Pattern Today M25.50 - Pain in unspecified joint Sm Sm/AUTOMOTIVE PARTS COORDINATOR Antibodies Today M25.50 - Pain in unspecified joint Anti DNA DS Antibody Today M25.50 - Pain in unspecified joint Sjogren's Antibodies Today M25.50 - Pain in unspecified joint Complete Blood Count Auto Diff Today M25.50 - Pain in unspecified joint Comprehensive Met. Panel Today M25.50 - Pain in unspecified joint C Reactive Protein Today M25.50 - Pain in unspecified joint Erythrocyte Sedimentation Rate Today M25.50 - Pain in unspecified joint Immunoglobulins,IgG IgA IgM Today M25.50 - Pain in unspecified joint Immunofixation Pnl, Serum Today M25.50 - Pain in unspecified joint Protein Electrophoresis, Serum Today M25.50 - Pain in unspecified joint Cyclic Citrullinated Peptide Today M25.50 - Pain in unspecified joint Rheumatoid Factor Today M25.50 - Pain in unspecified joint Complement C3 Today M25.50 - Pain in unspecified joint Complement C4 Today M25.50 - Pain in unspecified joint Medications: New pregabalin 25 mg PO BID 90 days 180 caps 1RF M48.10 - Ankylosing hyperostosis [[place]], site unspecified Discontinued gabapentin Discontinued Reason: Doctor's Order 300 mg PO BEDTIME 30 days 30 caps 3RF for pain G89.4 - Chronic pain syndrome, M47.816 - Spondylosis without myelopathy or radiculopathy, lumbar region, M54.16 - Radiculopathy, lumbar region Coding Level of Care Code Est Pt Level 3 (66554) Diagnoses Polyarthralgia M25.50
--- OUTSIDE RECORDS SUMMARY | 2024-07-03 15:58 | XMS_ITS ---
Author Name Nia Holley NP Address [address] [place] [address] Phone [phone] [facility] Team Providers Care Purchase Price Analyst Name Role Phone Nia Holley Unavailable [phone] Colette Esteves Unavailable [phone] Unavailable Unavailable Unavailable SUSAN IBARRA Unavailable [phone] Unavailable Unavailable [phone] Reason for Referral Not Available Allergies, adverse [...] on days 2-5 2023-08-24 2024-03-04 Polymyxin B-Trimethoprim 87542-5.1 UNIT/ML-% Solution Ophthalmic 1 drop ophthalmically into [...] MOUTH TWICE DAILY 2024-04-10 No Data Available Wpewnhip-Dvtaxihzr-PC [id number] Suspension SHAKE LIQUID AND INSTILL 4 DROPS [...] Active 2023-01-26 N/A Other problems related to ms dical facilities and other health care Active 2023-09-01 N/A Chronic back pain greater th an 3 months durationBilateral sacroiliitisMuscle spasms of both lower extremitiesOpioid use Active 2021-12-30 N/A Encounters Encounters Type Facility Date of Service Diagnosis/Co mplaint New patient,40-59min; chronic exacerbation, 2 stable chronic or 1 acute illness add add modifier 95 for video (do not use for phone, instead use 02698-42) [facility] Opioid dependence, uncomplicatedLong term (current) use of opiate analgesicSedative, hypnotic or anxiolytic dependence, uncomplicatedDorsalgia, unspecifiedSciatica, unspecified sideSacroiliitis, not elsewhere classified New patient,40-59min; chronic exacerbation, 2 stable chronic or 1 acute illness add add modifier 95 for video (do not use for phone, instead use 41872-38) [facility] New patient,40-59min; chronic exacerbation, 2 stable chronic or 1 acute illness add add modifier 95 for video (do not use for phone, instead use 31842-70) [facility] New patient,40-59min; chronic exacerbation, 2 stable chronic or 1 acute illness add add modifier 95 for video (do not use for phone, instead use 08666-63) [facility] New patient,40-59min; chronic exacerbation, 2 stable chronic or 1 acute illness add add modifier 95 for video (do not use for phone, instead use 83837-66) [facility] New patient,40-59min; chronic exacerbation, 2 stable chronic or 1 acute illness add add modifier 95 for video (do not use for phone, instead use 01317-11) [facility] New patient,40-59min; chronic exacerbation, 2 stable chronic or 1 acute illness add add modifier 95 for video (do not use for phone, instead use 13984-10) [facility] New patient,40-59min; chronic exacerbation, 2 stable chronic or 1 acute illness add add modifier 95 for video (do not use for phone, instead use 86371-36) [facility] New patient,40-59min; chronic exacerbation, 2 stable chronic or 1 acute illness add add modifier 95 for video (do not use for phone, instead use 35231-88) [facility] Estab. patient 30-39min; chronic exacerbation, 2 stable chronic or 1 acute illness add add modifier 95 for video, (do not use for phone, instead use 67097-45) [facility]/2023 Opioid dependence, uncomplicatedLong term (current) use of opiate analgesicSedative, hypnotic or anxiolytic dependence, uncomplicatedDorsalgia, unspecifiedSciatica, unspecified sideSacroiliitis, not elsewhere classifiedChronic obstructive pulmonary disease, unspecifiedCough, unspecified Estab. patient 30-39min; chronic exacerbation, 2 stable chronic or 1 acute illness add add modifier 95 for video, (do not use for phone, instead use 56097-07) [facility] Estab. patient 30-39min; chronic exacerbation, 2 stable chronic or 1 acute illness add add modifier 95 for video, (do not use for phone, instead use 46926-63) [facility] Estab. patient 30-39min; chronic exacerbation, 2 stable chronic or 1 acute illness add add modifier 95 for video, (do not use for phone, instead use 38377-04) [facility] Estab. patient 30-39min; chronic exacerbation, 2 stable chronic or 1 acute illness add add modifier 95 for video, (do not use for phone, instead use 46959-79) [facility] Estab. patient 30-39min; chronic exacerbation, 2 stable chronic or 1 acute illness add add modifier 95 for video, (do not use for phone, instead use 90682-91) [facility] Estab. patient 30-39min; chronic exacerbation, 2 stable chronic or 1 acute illness add add modifier 95 for video, (do not use for phone, instead use 55511-09) [facility] Estab. patient 30-39min; chronic exacerbation, 2 stable chronic or 1 acute illness add add modifier 95 for video, (do not use for phone, instead use 54027-12) [facility] Estab. patient 30-39min; chronic exacerbation, 2 stable chronic or 1 acute illness add add modifier 95 for video, (do not use for phone, instead use 47226-63) [facility] Estab. patient 30-39min; chronic exacerbation, 2 stable chronic or 1 acute illness add add modifier 95 for video, (do not use for phone, instead use 63163-92) [facility]23 Estab. patient 30-39min; chronic exacerbation, 2 stable chronic or 1 acute illness add add modifier 95 for video, (do not use for phone, instead use 69133-93) [facility]2023 Dorsalgia, unspecifiedSciati ca, unspecified sideSacroiliitis, not elsewhere classifiedChronic obstructive pulmonary disease, unspecifiedLong term (current) use of opiate analgesicCough, unspecifiedOther surveillance director (current) drug therapy Estab. patient 30-39min; chronic exacerbation, 2 stable chronic or 1 acute illness add add modifier 95 for video, (do not use for phone, instead use 59228-33) [facility] Estab. patient 30-39min; chronic exacerbation, 2 stable chronic or 1 acute illness add add modifier 95 for video, (do not use for phone, instead use 19049-13) [facility] Estab. patient 30-39min; chronic exacerbation, 2 stable chronic or 1 acute illness add add modifier 95 for video, (do not use for phone, instead use 56608-61) [facility] Estab. patient 30-39min; chronic exacerbation, 2 stable chronic or 1 acute illness add add modifier 95 for video, (do not use for phone, instead use 81371-65) [facility] Estab. patient 30-39min; chronic exacerbation, 2 stable chronic or 1 acute illness add add modifier 95 for video, (do not use for phone, instead use 02120-75) [facility] Estab. patient 30-39min; chronic exacerbation, 2 stable chronic or 1 acute illness add add modifier 95 for video, (do not use for phone, instead use 25872-64) [facility] Estab. patient 30-39min; chronic exacerbation, 2 stable chronic or 1 acute illness add add modifier 95 for video, (do not use for phone, instead use 55581-39) [facility]23 No Data Available [facility]2023 Cough, unspecifiedSacroiliit is, not elsewhere classifiedDorsalgia, unspecifiedSciatica, unspecified side No Data Available [facility] 02[place]10[place]2023 No Data Available [facility]/10[place]2023 No Data Available [facility]2023 Dorsalgia, unspecifiedOther chronic painSacroiliitis, not elsewhere classifiedOther muscle spasmOpioid use, unspecified, uncomplicated No Data Available [facility] 08[place]2023 No Data Available [facility]2023 Acute upper respiratory infection, unspecified No Data Available [facility] 08[place]/2023 No Data Available [facility] 08[place]2023 No Data Available [facility] 09[place]2023 Acute upper respiratory infection, unspecifiedOther problems related to medical facilities and other health care No Data Available [facility] 10[place]/2023 Urinary tract infection, sit e not specifiedNausea No Data Available [facility]2023 No Data Available [facility] Estab. patient 30-39min; chronic exacerbation, 2 stable chronic or 1 acute illness add add modifier 95 for video, (do not use for phone, instead use 01345-14) [facility]2023 Dorsalgia, unspecifiedOther chronic painSacroiliitis, not elsewhere classifiedOther jail (current) drug therapyOther muscle spasmOpioid use, unspecified, uncomplicatedChronic obstructive pulmonary disease, unspecifiedOther problems related to medical facilities and other health careUrinary tract infection, site not specifiedNauseaPersonal history of nicotine dependence Estab. patient 30-39min; chronic exacerbation, 2 stable chronic or 1 acute illness add add modifier 95 for video, (do not use for phone, instead use 95552-69) [facility]19[place] Estab. patient 30-39min; chronic exacerbation, 2 stable chronic or 1 acute illness add add modifier 95 for video, (do not use for phone, instead use 69298-27) [facility] 10[place]19/2023 Estab. patient 30-39min; chronic exacerbation, 2 stable chronic or 1 acute illness add add modifier 95 for video, (do not use for phone, instead use 07698-11) [facility]19[place]2023 Estab. patient 30-39min; chronic exacerbation, 2 stable chronic or 1 acute illness add add modifier 95 for video, (do not use for phone, instead use 33281-44) [facility]19[place] Estab. patient 30-39min; chronic exacerbation, 2 stable chronic or 1 acute illness add add modifier 95 for video, (do not use for phone, instead use 89528-68) [facility] 10[place]19/2023 Estab. patient 30-39min; chronic exacerbation, 2 stable chronic or 1 acute illness add add modifier 95 for video, (do not use for phone, instead use 50212-39) [facility] 10[place]19/[place]23 Estab. patient 30-39min; chronic exacerbation, 2 stable chronic or 1 acute illness add add modifier 95 for video, (do not use for phone, instead use 27737-25) [facility] Estab. patient 30-39min; chronic exacerbation, 2 stable chronic or 1 acute illness add add modifier 95 for video, (do not use for phone, instead use 94684-13) [facility] Estab. patient 30-39min; chronic exacerbation, 2 stable chronic or 1 acute illness add add modifier 95 for video, (do not use for phone, instead use 29403-87) [facility] No Data Available [facility]2023 Sacroiliitis, not elsewhere classifiedDorsalgia, unspecifiedOther chronic painOther muscle spasmOpioid use, unspecified, uncomplicatedUrinary tract infection, site not specifiedNausea No Data Available [facility]2023 No Data Available [facility]2023 No Data Available [facility]2023 No Data Available [facility]2023 Dorsalgia, unspecifiedOther chronic painSacroiliitis, not elsewhere classifiedOther muscle spasmOpioid use, unspecified, uncomplicatedUrinary tract infection, site not specifiedNauseaOther problems related to medical facilities and other health care No Data Available [facility]/2023 No Data Available [facility]/2024 Dorsalgia, unspecifiedOther problems related to medical facilities and other health careOther chronic painSacroiliitis, not elsewhere classifiedOther muscle spasmOpioid use, unspecified, uncomplicated No Data Available [facility] Estab. patient 10-29min; 1 minor problem; add add modifier 95 for video, modifier 93 for phone [facility] 02/[place]/2024 Chronic obstructive pulmonar [...] elsewhere classifiedOther muscle spasmOpioid use, unspecified, uncomplicatedOther jail (current) drug therapyChronic obstructive pulmonary disease, unspecifiedAcute [...] 95 for video, modifier 93 for phone [facility] 04/[place]/2024 Vital Signs Date [...] tive Time Current Smoking Status Former smoker 2025-05-2 0 Sex Female History of Procedures Procedures Service Procedure code Service date Servicing provider Phone# New patient,40-59min; chronic exacerbation, 2 stable chronic or 1 acute illness add add modifier 95 for video (do not use for phone, instead use 40159-56) [id number] 2021-12-30 No Data Available No Data Availa [...] (do not use for phone, instead use 62566-83) 49906 2023-01-26 No Data Available No Data Availa [...] (do not use for phone, instead use 26361-25) 60146 2023-02-03 No Data Available No Data Availa [...] No Data Avail able No Data Available [id number] 2023-02-10 No Data Available No Data Available Pain Assessment - Pain Documented on a Pain Scale (1125F) 1125F 2023-02-10 No Data Available No Data Cecilia ilable Medication List Documented (1159F) 1159F 2023-02-10 No Data Available No Data Cecilia ilable No Data Available [id number] 2023-08-10 No Data Available No Data Available Medication List Documented (1159F) 1159F 2023-08-10 No Data Available No Data Cecilia ilable No Data Available [id number] 2023-08-24 No Data Available No Data Available SBP < 130 (3074F) 3074F 2023-08-24 No Data Available No Data Available DBP 80-89 (3079F) 3079F 2023-08-24 No Data Available No Data Available No Data Available [id number] 2023-09-01 No Data Available No Data Available No Data Available [id number] 2023-10-11 No Data Available No Data Available SBP >= 140 3077F 2023-10-11 No Data Available No Data Available DBP >=90 3080F 2023-10-11 No Data Available No Data Available Estab. patient 30-39min; chronic exacerbation, 2 stable chronic or 1 acute illness add add modifier 95 for video, (do not use for phone, instead use 96195-52) 97410 2023-10-19 No Data Available No Data Availa [...] No Data Availa ble No Data Available [id number] 2023-11-20 No Data Available No Data Available Medication List Documented (1159F) 1159F 2023-11-20 No Data Available No Data Cecilia ilable SBP < 130 (3074F) 3074F 2023-11-20 No Data Available No Data Available DBP 80-89 (3079F) 3079F 2023-11-20 No Data Available No Data Available No Data Available [id number] 2023-11-22 No Data Available No Data Available Medication List Documented (1159F) 1159F 2023-11-22 No Data Available No Data Cecilia ilable No Data Available [id number] 2024-01-09 No Data Available No Data Available Medication List Documented (1159F) 1159F 2024-01-09 No Data Available No Data Cecilia ilable Estab. patient 10-29min; 1 minor problem; add add modifier 95 for video, modifier 93 for phone [id number] 2024-02-20 No Data Available No Data Availa ble Medication List Documented (1159F) 1159F 2024-02-20 No Data Available No Data Cecilia ilable BMI obtained (3008F) 3008F 2024-02-20 No Data Availab le No Data Available Estab. patient 10-29min; 1 minor problem; add add modifier 95 for video, modifier 93 for phone 46974 2024-03-04 No Data Available No Data Availa ble Estab. patient 20-29min; 1 stable chronic or 2 minor; add add modifier 95 for video, modifier 93 for phone 11245 2024-04-26 No Data Available No Data Availa [...] orally BID PRN muscle spasms/pain #30 tablet XUd5rCf New Tylenol Extra Strength 500 mg Tab 2 tablet orally q 6hrs prn pain/fever #30 tablet LWz0sVe New Diclofenac Sodium 1 % Gel 4 grams topically to affected area 4 times per day PRN #100 gram ZNs8uCa New Lidocaine 5 % Oint apply thin film to affected area TID prn pain #50 gram VKb3iWk New predniSONE 20 mg Tab Take 2 tablets twice daily for 3 days, 1 tablet twice daily for 2 days, and 1 tablet daily for 2 days. #18 tab TUu3qzwlelbl plan of care and conservative measures for [...] needs that may arise 06/09.UTI (urinary tract infection)Aecmcb2410/11/2023eRx New Tylenol Extra Strength 500 mg Tab 2 tablet orally Q6hrs prn pain/fever #30 tablet YQd7vEw New Ondansetron 8 mg Tab Disintegrating 1 tablet orally every 8 hours as needed nausea #30 tablet LEf3nQk New Macrobid 100 mg Cap Take 1 [...] sedationFor many years.Now at pain clinic in [facility], began seeing them on 12/07.On [...] sedationFor many years.Now at pain clinic in [facility], began seeing them on 12/07.On [...] sedationFor many years.Now at pain clinic in [facility], began seeing them on 12/07.On JelzrihnFsmihcwhphdEotayejhapCwwsrrujuz69/21/2023ontinues with pain, poor historian, unclear how much pain she is having today, appears to be active but uumbgcKtryowrhJdhsotjnoidRalshtdbkhDcyhawwxaf71/21/2023ontinues with pain, pls cont tx as prescribed, [...] + days. Inhaler puffer 4/ day for gjovnczgdqxsqyt47/21/2023Very difficult to assess. Not a relieble historian, [...] 95)Continue [facility] see [facility] [facility] or disease [...] + days. Inhaler puffer 4/ day for fkkwvzxgiccuvhh68/21/2023Very difficult to assess. Not a relieble historian, [...] inhalers/nebs.We will F/U next week.02/10 stable has epkhdnbiEmbzhlsgLerjifzaajxNulaseguiaDxoeabvdtd10/21/2023ontinues with pain, pls cont tx as prescribed, reports she was told that PT was not viable. Will investigate.02/10 has had this for years, will refer to neurologist, denies any bowel or bladder dysfunctionFor many years.Now at pain clinic in [facility], began seeing them on 12/07.On TpjiiobvZygkxtacoauJcbtojtnapIfnqcpoopj42/21/2023ontinues with pain, poor historian, unclear how much pain she is having today, appears to be active but trzoey08/28 for many years will refer to neurologist [...] orally BID PRN muscle spasms/pain #30 tablet YXg4rGo New Tylenol Extra Strength 500 mg Tab 2 tablet orally q 6hrs prn pain/fever #30 tablet JDw8tMs New Diclofenac Sodium 1 % Gel 4 grams topically to affected area 4 times per day PRN #100 gram OJt7pIp New Lidocaine 5 % Oint apply thin film to affected area TID prn pain #50 gram SSe2mWe New predniSONE 20 mg Tab Take 2 tablets twice daily for 3 days, 1 tablet twice daily for 2 days, and 1 tablet daily for 2 days. #18 tab JMp6imvunkxj plan of care and conservative measures for [...] low abd pain. [facility]. Follow-up with [facility] [...] tablet orally Q6hrs prn pain/fever #30 tablet LTe1zRn New Ondansetron 8 mg Tab Disintegrating 1 tablet orally every 8 hours as needed nausea #30 tablet AKw0zRr New Macrobid 100 mg Cap Take 1 [...] orally BID PRN muscle spasms/pain #30 tablet LLa4pFo New Tylenol Extra Strength 500 mg Tab 2 tablet orally q 6hrs prn pain/fever #30 tablet GAm9aGz New Diclofenac Sodium 1 % Gel 4 grams topically to affected area 4 times per day PRN #100 gram OWs0ySt New Lidocaine 5 % Oint apply thin film to affected area TID prn pain #50 gram BZp5uPx New predniSONE 20 mg Tab Take 2 tablets twice daily for 3 days, 1 tablet twice daily for 2 days, and 1 tablet daily for 2 days. #18 tab PCy3mqoibxrk plan of care and conservative measures for [...] tablet orally Q6hrs prn pain/fever #30 tablet OAg2sAk New Ondansetron 8 mg Tab Disintegrating 1 tablet orally every 8 hours as needed nausea #30 tablet JRr0bBn New Macrobid 100 mg Cap Take 1 [...] orally BID PRN muscle spasms/pain #30 tablet PMc7iZi New Tylenol Extra Strength 500 mg Tab 2 tablet orally q 6hrs prn pain/fever #30 tablet OAu3yLp New Diclofenac Sodium 1 % Gel 4 grams topically to affected area 4 times per day PRN #100 gram YUh2hMs New Lidocaine 5 % Oint apply thin film to affected area TID prn pain #50 gram OEo8oQu New predniSONE 20 mg Tab Take 2 tablets twice daily for 3 days, 1 tablet twice daily for 2 days, and 1 tablet daily for 2 days. #18 tab DZo8mvwdaljn plan of care and conservative measures for [...] tablet orally Q6hrs prn pain/fever #30 tablet MLr7cOj New Ondansetron 8 mg Tab Disintegrating 1 tablet orally every 8 hours as needed nausea #30 tablet AYo0qFe New Macrobid 100 mg Cap Take 1 tablet PO twice daily for 7 days. #14 tablet RFx10/19/23: Improved per pt, denies ss today. 11/20/23:Member describing dysuria and recurrent UTI symptomsStart bactrim DS BID x 5 daysEncouraged increased fluid intake, especially waterAPP f/u is scheduled for 11/21 regarding back symptoms, but can call back sooner for any new or worsened uxipfazn23/8/24: Symptoms began 2 days ago on Tuesday. [...] low abd pain. Please remember to call [facility] to see PCP. Follow-up with [facility] as [...] orally BID PRN muscle spasms/pain #30 tablet GUb0oZh New Tylenol Extra Strength 500 mg Tab 2 tablet orally q 6hrs prn pain/fever #30 tablet FHf6vPz New Diclofenac Sodium 1 % Gel 4 grams topically to affected area 4 times per day PRN #100 gram KNd6lGb New Lidocaine 5 % Oint apply thin film to affected area TID prn pain #50 gram UNe8hIj New predniSONE 20 mg Tab Take 2 tablets twice daily for 3 days, 1 tablet twice daily for 2 days, and 1 tablet daily for 2 days. #18 tab GPu1ziyitmcq plan of care and conservative measures for [...] low abd pain. Please remember to call [facility] to see PCP. Follow-up with [facility] as [...] orally BID PRN muscle spasms/pain #30 tablet WRl4lJo New Tylenol Extra Strength 500 mg Tab 2 tablet orally q 6hrs prn pain/fever #30 tablet SEp7gFh New Diclofenac Sodium 1 % Gel 4 grams topically to affected area 4 times per day PRN #100 gram XRx2tYp New Lidocaine 5 % Oint apply thin film to affected area TID prn pain #50 gram HOj4fRi New predniSONE 20 mg Tab Take 2 tablets twice daily for 3 days, 1 tablet twice daily for 2 days, and 1 tablet daily for 2 days. #18 tab OUb5dfmxixuz plan of care and conservative measures for [...] with ortho spine on 11/24/[address] Hovrath. Discussed fall precautions, using assistive device, ice/heat.01/09/24: [...] 45 tabs. Will refill rx, sent to [facility].When member to call: 1. If bp is elevated sbp>150; dbp>90 or symptomatic-h/a, dizziness, cp, sob. 2. if there is a fall 3. if BS >300 or BS<90 or symptomatic; i.e., dizzy, off balance , shaky, general weakness. 4. if UTI symptoms arise-urinary frequency, dysuria, low abd pain. [facility] Follow-up with [facility] [...] in each nostril twice daily #1 each ZCz4Ifvrqk Promethazine-DM 6.25/15 mg/5ML Syrup 5 ml orally every 4-6 hours as needed for cough #200 ml QNv5Arp use cool mist vaporizer/humidifier next to bed [...] 45 tabs. Will refill rx, sent to [facility].04/26/24: Tizanidine helps more than Flexeril. I last filled on 03/06/24 for 45 tabs, member requesting refill today, tolerating.Has been taking clonazepam for 10+ yearsDiscussed risk of sedationRx: Breo Elipta, Albuterol HFA PRN, Levalbuterol [facility] pulmonology follow up04/26/24: Saw her pulm today, she has URI symptoms. 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
== END 2024-07-03 15:29 | disposition home or self-care (01) ==
LOC: HO.RHE 14:37
PROVIDERS: PCP Internal Medicine; Visit Provider Student in an Organized Health Care Education/Training Program
DX: M25.50 Pain in unspecified joint (principal)
CPT/HCPCS: 99213

== ENCOUNTER → 2024-07-03 14:36 | Outpatient (BNVA) | payer OTHER, SELFPAY | PROVIDERS: PCP Internal Medicine; Visit Provider Student in an Organized Health Care Education/Training Program | DX: M48.10 Ankylosing hyperostosis [Forestier], site unspecified (principal); M47.26 Other spondylosis with radiculopathy, lumbar region; M15.9 Polyosteoarthritis, unspecified; M25.50 Pain in unspecified joint; G56.03 Carpal tunnel syndrome, bilateral upper limbs; G89.4 Chronic pain syndrome | CPT/HCPCS: 99212 ==

== ENCOUNTER 2024-07-10 09:03 | Outpatient (REF) | payer OTHER, SELFPAY ==
[2024-07-10 09:22] LABS: MANUAL DIFF FLAG NO
--- OUTSIDE RECORDS SUMMARY | 2024-07-10 09:31 | XMS_ITS ---
Author Name Nia Holley NP Address [address] [place] [address] Phone [phone] [facility] Care Team Providers Care Pin Chaser Name Role Phone Nia Holley Unavailable [phone] Colette Esteves Unavailable [phone] Unavailable Unavailable Unavailable SUSAN IBARRA Unavailable [phone] Unavailable Unavailable [phone] Reason for Referral Not Available Allergies, adverse [...] on days 2-5 2023-08-24 2024-03-04 Polymyxin B-Trimethoprim 95215-1.1 UNIT/ML-% Solution Ophthalmic 1 drop ophthalmically into [...] MOUTH TWICE DAILY 2024-04-10 No Data Available Swvjrznr-Scpkallet-JQ [id number] Suspension SHAKE LIQUID AND INSTILL 4 DROPS TO RIGHT EAR EVERY 8 HOURS FOR 1 WEEK 2024-04-10 No Data Available traMADol 50 mg Tab 1 tablet orally tiny y as needed at bedtime 2024-04-26 No Data Available Problem List Problem Status Onset Date Resolved Date Synopsis Chronic prescription benzodiazepine use Active 2021-12-30 N/A Has been taki ng clonazepam for 10+ yearsDiscussed risk of sedation UTI (urinary tract infection)Nausea Resolved 2023-10-11 2024-04-2610/10/2023eRx N ew Tylenol Extra Strength 500 mg Tab 2 tablet orally Q6hrs prn pain/fever #30 tablet ZAb9jXj New Ondansetron 8 mg Tab Disintegrating 1 tablet orally every 8 hours as needed nausea #30 tablet GWx3gLt New Macrobid 100 mg Cap Take 1 tablet PO twice daily for 7 days. #14 tablet RFx10/19/23: Improved per pt, denies ss today. 11/20/23:Member describing dysuria and recurrent UTI symptomsStart bactrim DS BID x 5 daysEncouraged increased fluid intake, especially waterAPP f/u is scheduled for 11/21 regarding back symptoms, but can call back sooner for any new or worsened tbgqrakr44/8/24: Symptoms began 2 days ago on Tuesday. Continues taking antibiotic BID x5 days. She is on day 2 of antibiotics. She has increased urinary frequency, odor and suprapubic pain. Denies fever currently, but endorses fever when symptoms first began. Will follow up closer toward the end of her course to ensure symptoms improve. URI (upper respiratory infection) Active 2023-08-24 N/A 03/04/24- Azelast ine 0.1 % Solution Nasal use 2 sprays in each nostril twice daily #1 each QJf5Veebli Promethazine-DM 6.25/15 mg/5ML Syrup 5 ml orally every 4-6 hours as needed for cough #200 ml AVh7Oyq use cool mist vaporizer/humidifier next to bed Elevate HOB when lying down Increase water intake, warm tea with honey, salt water gargles.Contact CB if no improvement or symptoms become worse.04/26/24: Just finished antibiotics for ear infection prescribed by PCP 14 day course and completed last night. Reports she has imaging done of her face to assess her sinuses. Cough Resolved 2023-01-26 2024-04-26 01/26/23: coug h and chest congestion x 7 daysusing albuterol [...] + days. Inhaler puffer 4/ day for lkbvjmdbdnowyru83/21/2023Ve ry difficult to assess. Not a relieble historian, [...] inhalers/nebs.We will F/U next week.02/10 stable has improved COPD (chronic obstructive pulmonary disease) Active 2023-01-26 N/A Rx: Breo Elipta, Albuterol HFA PRN, Levalbuterol [facility] pulmonology follow up04/26/24: Saw her pulm today, she has URI symptoms. Has prescribed steroids but they do not agree with her stomach. Other problems related to medical facilities and other health care Active 2023-09-01 N/A PAIN CO NTINGENCY PLANLast updated: 04/26/2024Medom to call for the following symptoms: Fall??/ Increased pain/ Increased pain meds/ Joint swellingPlanned intervention: Encourage extra fluid intake / Tylenol 1,000mg q6h/ Lidoderm patch 4% to affected area/ Voltaren gel to affected area/ Prednisone 50mg daily for 5 days/ Tizanidine 4mg every 8 hours/ Apply heat to affected area/ Apply ice to affected area Chronic back pain greater than 3 months durationBilateral sacroiliitisMuscle spasms of both lower extremitiesOpioid use Active 2021-12-30 N/A No longer on Lyrica or GabapentinTizanidine works better [...] 45 tabs. Will refill rx, sent to [facility].04/26/24: Tizanidine helps more than Flexeril. I last filled on 03/06/24 for 45 tabs, member requesting refill today, tolerating. Encounters Encounters Type Facility Date of Service Diagnosis/Co mplaint New patient,40-59min; chronic exacerbation, 2 stable chronic or 1 acute illness add add modifier 95 for video (do not use for phone, instead use 17697-44) [facility] Opioid dependence, uncomplicatedLong term (current) use of opiate analgesicSedative, hypnotic or anxiolytic dependence, uncomplicatedDorsalgia, unspecifiedSciatica, unspecified sideSacroiliitis, not elsewhere classified New patient,40-59min; chronic exacerbation, 2 stable chronic or 1 acute illness add add modifier 95 for video (do not use for phone, instead use 32804-74) [facility] New patient,40-59min; chronic exacerbation, 2 stable chronic or 1 acute illness add add modifier 95 for video (do not use for phone, instead use 68488-87) [facility] New patient,40-59min; chronic exacerbation, 2 stable chronic or 1 acute illness add add modifier 95 for video (do not use for phone, instead use 32473-54) [facility] New patient,40-59min; chronic exacerbation, 2 stable chronic or 1 acute illness add add modifier 95 for video (do not use for phone, instead use 66004-51) [facility] New patient,40-59min; chronic exacerbation, 2 stable chronic or 1 acute illness add add modifier 95 for video (do not use for phone, instead use 82436-63) [facility] New patient,40-59min; chronic exacerbation, 2 stable chronic or 1 acute illness add add modifier 95 for video (do not use for phone, instead use 96202-79) [facility] New patient,40-59min; chronic exacerbation, 2 stable chronic or 1 acute illness add add modifier 95 for video (do not use for phone, instead use 60132-72) [facility] New patient,40-59min; chronic exacerbation, 2 stable chronic or 1 acute illness add add modifier 95 for video (do not use for phone, instead use 69196-78) [facility]/20[place] Estab. patient 30-39min; chronic exacerbation, 2 stable chronic or 1 acute illness add add modifier 95 for video, (do not use for phone, instead use 09528-82) [facility] 01/26/2023 Opioid dependence, uncomplicatedLong term (current) use of opiate analgesicSedative, hypnotic or anxiolytic dependence, uncomplicatedDorsalgia, unspecifiedSciatica, unspecified sideSacroiliitis, not elsewhere classifiedChronic obstructive pulmonary disease, unspecifiedCough, unspecified Estab. patient 30-39min; chronic exacerbation, 2 stable chronic or 1 acute illness add add modifier 95 for video, (do not use for phone, instead use 01509-24) [facility] 01/26/2023 Estab. patient 30-39min; chronic exacerbation, 2 stable chronic or 1 acute illness add add modifier 95 for video, (do not use for phone, instead use 21671-40) [facility] 01/26/2023 Estab. patient 30-39min; chronic exacerbation, 2 stable chronic or 1 acute illness add add modifier 95 for video, (do not use for phone, instead use 50290-39) [facility] 01/26/2023 Estab. patient 30-39min; chronic exacerbation, 2 stable chronic or 1 acute illness add add modifier 95 for video, (do not use for phone, instead use 09562-34) [facility] 01/26/2023 Estab. patient 30-39min; chronic exacerbation, 2 stable chronic or 1 acute illness add add modifier 95 for video, (do not use for phone, instead use 89292-97) [facility] 01/26/2023 Estab. patient 30-39min; chronic exacerbation, 2 stable chronic or 1 acute illness add add modifier 95 for video, (do not use for phone, instead use 77671-13) [facility] 01/26/2023 Estab. patient 30-39min; chronic exacerbation, 2 stable chronic or 1 acute illness add add modifier 95 for video, (do not use for phone, instead use 46366-71) [facility] 01/26/2023 Estab. patient 30-39min; chronic exacerbation, 2 stable chronic or 1 acute illness add add modifier 95 for video, (do not use for phone, instead use 48589-33) [facility] [place] Estab. patient 30-39min; chronic exacerbation, 2 stable chronic or 1 acute illness add add modifier 95 for video, (do not use for phone, instead use 86840-17) [facility] 01/26/2023 Estab. patient 30-39min; chronic exacerbation, 2 stable chronic or 1 acute illness add add modifier 95 for video, (do not use for phone, instead use 66255-48) [facility] 02/03/2023 Dorsalgia, unspecifiedSciati ca, unspecified sideSacroiliitis, not elsewhere classifiedChronic obstructive pulmonary disease, unspecifiedLong term (current) use of opiate analgesicCough, unspecifiedOther shelter (current) drug therapy Estab. patient 30-39min; chronic exacerbation, 2 stable chronic or 1 acute illness add add modifier 95 for video, (do not use for phone, instead use 43091-41) [facility] Estab. patient 30-39min; chronic exacerbation, 2 stable chronic or 1 acute illness add add modifier 95 for video, (do not use for phone, instead use 81535-07) [facility] Estab. patient 30-39min; chronic exacerbation, 2 stable chronic or 1 acute illness add add modifier 95 for video, (do not use for phone, instead use 75206-29) [facility] Estab. patient 30-39min; chronic exacerbation, 2 stable chronic or 1 acute illness add add modifier 95 for video, (do not use for phone, instead use 44754-67) [facility] Estab. patient 30-39min; chronic exacerbation, 2 stable chronic or 1 acute illness add add modifier 95 for video, (do not use for phone, instead use 60167-58) [facility] Estab. patient 30-39min; chronic exacerbation, 2 stable chronic or 1 acute illness add add modifier 95 for video, (do not use for phone, instead use 41465-40) [facility] Estab. patient 30-39min; chronic exacerbation, 2 stable chronic or 1 acute illness add add modifier 95 for video, (do not use for phone, instead use 30396-22) [facility] 02/03/[place]23 No Data Available [facility]10[place]2023 Cough, unspecifiedSacroiliit is, not elsewhere classifiedDorsalgia, unspecifiedSciatica, unspecified side No Data Available [facility] 02[place]10/2023 No Data Available [facility]23 No Data Available [facility] 08[place]2023 Dorsalgia, unspecifiedOther chronic painSacroiliitis, not elsewhere classifiedOther muscle spasmOpioid use, unspecified, uncomplicated No Data Available [facility] 08[place]23 No Data Available [facility]2023 Acute upper respiratory infection, unspecified No Data Available [facility] 08[place]23 No Data Available [facility] No Data Available [facility]2023 Acute upper respiratory infection, unspecifiedOther problems related to medical facilities and other health care No Data Available [facility] 10[place]11/2023 Urinary tract infection, sit e not specifiedNausea No Data Available [facility]2023 No Data Available [facility] Estab. patient 30-39min; chronic exacerbation, 2 stable chronic or 1 acute illness add add modifier 95 for video, (do not use for phone, instead use 78223-93) [facility] 10[place]19/2023 Dorsalgia, unspecifiedOther chronic painSacroiliitis, not elsewhere classifiedOther shelter (current) drug therapyOther muscle spasmOpioid use, unspecified, uncomplicatedChronic obstructive pulmonary disease, unspecifiedOther problems related to medical facilities and other health careUrinary tract infection, site not specifiedNauseaPersonal history of nicotine dependence Estab. patient 30-39min; chronic exacerbation, 2 stable chronic or 1 acute illness add add modifier 95 for video, (do not use for phone, instead use 24017-21) [facility] 10[place]19/2023 Estab. patient 30-39min; chronic exacerbation, 2 stable chronic or 1 acute illness add add modifier 95 for video, (do not use for phone, instead use 70553-38) [facility] 10/19/2023 Estab. patient 30-39min; chronic exacerbation, 2 stable chronic or 1 acute illness add add modifier 95 for video, (do not use for phone, instead use 31635-29) [facility] 10/19/2023 Estab. patient 30-39min; chronic exacerbation, 2 stable chronic or 1 acute illness add add modifier 95 for video, (do not use for phone, instead use 70537-90) [facility]19[place] Estab. patient 30-39min; chronic exacerbation, 2 stable chronic or 1 acute illness add add modifier 95 for video, (do not use for phone, instead use 47851-30) [facility]19[place] Estab. patient 30-39min; chronic exacerbation, 2 stable chronic or 1 acute illness add add modifier 95 for video, (do not use for phone, instead use 05038-27) [facility]19[place] Estab. patient 30-39min; chronic exacerbation, 2 stable chronic or 1 acute illness add add modifier 95 for video, (do not use for phone, instead use 34130-24) [facility]19[place] Estab. patient 30-39min; chronic exacerbation, 2 stable chronic or 1 acute illness add add modifier 95 for video, (do not use for phone, instead use 39883-19) [facility]19[place] Estab. patient 30-39min; chronic exacerbation, 2 stable chronic or 1 acute illness add add modifier 95 for video, (do not use for phone, instead use 41093-04) [facility] 10[place]19[place] No Data Available [facility]23 Sacroiliitis, not elsewhere classifiedDorsalgia, unspecifiedOther chronic painOther muscle spasmOpioid use, unspecified, uncomplicatedUrinary tract infection, site not specifiedNausea No Data Available [facility]2023 No Data Available [facility] No Data Available [facility] No Data Available [facility]2023 Dorsalgia, unspecifiedOther chronic painSacroiliitis, not elsewhere classifiedOther muscle spasmOpioid use, unspecified, uncomplicatedUrinary tract infection, site not specifiedNauseaOther problems related to medical facilities and other health care No Data Available [facility]/2023 No Data Available [facility] 01/09/2024 Dorsalgia, unspecifiedOther problems related to medical facilities and other health careOther chronic painSacroiliitis, not elsewhere classifiedOther muscle spasmOpioid use, unspecified, uncomplicated No Data Available [facility] [place]20[facility] Estab. patient 10-29min; 1 minor problem; add add modifier 95 for video, modifier 93 for phone [facility] 02/20/2024 Chronic obstructive pulmonar y disease, unspecifiedDorsalgia, unspecifiedOther chronic painSacroiliitis, not elsewhere classifiedOther muscle spasmOpioid use, unspecified, uncomplicatedOther problems related to medical facilities and other health care Estab. patient 10-29min; 1 minor problem; add add modifier 95 for video, modifier 93 for phone [facility] 02/20/2024 Estab. patient 10-29min; 1 minor problem; add add modifier 95 for video, modifier 93 for phone [facility] [place] 02/20/2024 Estab. patient 10-29min; 1 minor problem; add add modifier 95 for video, modifier 93 for phone [facility] [place] 03/04/2024 Acute upper respiratory infection, unspecified Estab. patient 20-29min; 1 stable chronic or 2 minor; add add modifier 95 for video, modifier 93 for phone [facility] [place] 04/26/2024 Dorsalgia, unspecifiedOther chronic painSacroiliitis, not elsewhere classifiedOther muscle spasmOpioid use, unspecified, uncomplicatedOther shelter (current) drug therapyChronic obstructive pulmonary disease, unspecifiedAcute upper respiratory infection, unspecifiedOther problems related to medical facilities and other health care Estab. patient 20-29min; 1 stable chronic or 2 minor; add add modifier 95 for video, modifier 93 for phone [facility] 04/26/20[place] Estab. patient 20-29min; 1 stable chronic or 2 minor; add add modifier 95 for video, modifier 93 for phone [facility] [place] 04/26/2024 Estab. patient 20-29min; 1 stable chronic or 2 minor; add add modifier 95 for video, modifier 93 for phone [facility] [place] 04/26/2024 Estab. patient 20-29min; 1 stable chronic or 2 minor; add add modifier 95 for video, modifier 93 for phone [facility] [place] 04/26/2024 Estab. patient 20-29min; 1 stable chronic or 2 minor; add add modifier 95 for video, modifier 93 for phone [facility] [place] 04/26/2024 Estab. patient 20-29min; 1 stable chronic or 2 minor; add add modifier 95 for video, modifier 93 for phone [facility] [place]/26/20[place] Estab. patient 20-29min; 1 stable chronic or 2 minor; add add modifier 95 for video, modifier 93 for phone [facility] [place] 04/26/2024 Estab. patient 20-29min; 1 stable chronic or 2 minor; add add modifier 95 for video, modifier 93 for phone [facility] [place] 04/26/2024 Vital Signs Date of Collection Vitals [...] tive Time Current Smoking Status Former smoker 2024-06-15 9 Sex Female History of Procedures Procedures Service Procedure code Service date Servicing provider Phone# New patient,40-59min; chronic exacerbation, 2 stable chronic or 1 acute illness add add modifier 95 for video (do not use for phone, instead use 99030-51) [id number] 2021-12-30 No Data Available No Data Availa [...] (do not use for phone, instead use 48617-93) [id number] 2023-01-26 No Data Available No Data Availa [...] (do not use for phone, instead use 62664-03) [id number] 2023-02-03 No Data Available No Data Availa [...] No Data Avail able No Data Available [id number] 2023-02-10 No Data Available No Data Available Pain Assessment - Pain Documented on a Pain Scale (1125F) 1125F 2023-02-10 No Data Available No Data Cecilia ilable Medication List Documented (1159F) 1159F 2023-02-10 No Data Available No Data Cecilia ilable No Data Available [id number] 2023-08-10 No Data Available No Data Available Medication List Documented (1159F) 1159F 2023-08-10 No Data Available No Data Cecilia ilable No Data Available [id number] 2023-08-24 No Data Available No Data Available SBP < 130 (3074F) 3074F 2023-08-24 No Data Available No Data Available DBP 80-89 (3079F) 3079F 2023-08-24 No Data Available No Data Available No Data Available [id number] 2023-09-01 No Data Available No Data Available No Data Available [id number] 2023-10-11 No Data Available No Data Available SBP >= 140 3077F 2023-10-11 No Data Available No Data Available DBP >=90 3080F 2023-10-11 No Data Available No Data Available Estab. patient 30-39min; chronic exacerbation, 2 stable chronic or 1 acute illness add add modifier 95 for video, (do not use for phone, instead use 39771-21) 18047 2023-10-19 No Data Available No Data Availa [...] No Data Availa ble No Data Available [id number] 2023-11-20 No Data Available No Data Available Medication List Documented (1159F) 1159F 2023-11-20 No Data Available No Data Cecilia ilable SBP < 130 (3074F) 3074F 2023-11-20 No Data Available No Data Available DBP 80-89 (3079F) 3079F 2023-11-20 No Data Available No Data Available No Data Available [id number] 2023-11-22 No Data Available No Data Available Medication List Documented (1159F) 1159F 2023-11-22 No Data Available No Data Cecilia ilable No Data Available [id number] 2024-01-09 No Data Available No Data Available Medication List Documented (1159F) 1159F 2024-01-09 No Data Available No Data Cecilia ilable Estab. patient 10-29min; 1 minor problem; add add modifier 95 for video, modifier 93 for phone 40703 2024-02-20 No Data Available No Data Availa ble Medication List Documented (1159F) 1159F 2024-02-20 No Data Available No Data Cecilia ilable BMI obtained (3008F) 3008F 2024-02-20 No Data Availab le No Data Available Estab. patient 10-29min; 1 minor problem; add add modifier 95 for video, modifier 93 for phone [id number] 2024-03-04 No Data Available No Data Availa ble Estab. patient 20-29min; 1 stable chronic or 2 minor; add add modifier 95 for video, modifier 93 for phone [id number] 2024-04-26 No Data Available No Data Availa [...] orally BID PRN muscle spasms/pain #30 tablet CYa2cBd New Tylenol Extra Strength 500 mg Tab 2 tablet orally q 6hrs prn pain/fever #30 tablet SKu6sCm New Diclofenac Sodium 1 % Gel 4 grams topically to affected area 4 times per day PRN #100 gram IIw0lGq New Lidocaine 5 % Oint apply thin film to affected area TID prn pain #50 gram KZb1uXd New predniSONE 20 mg Tab Take 2 tablets twice daily for 3 days, 1 tablet twice daily for 2 days, and 1 tablet daily for 2 days. #18 tab HRs3hiixfipz plan of care and conservative measures for [...] needs that may arise 06/09.UTI (urinary tract infection)Kxaftq9910/11/2023eRx New Tylenol Extra Strength 500 mg Tab 2 tablet orally Q6hrs prn pain/fever #30 tablet VSi3xBk New Ondansetron 8 mg Tab Disintegrating 1 tablet orally every 8 hours as needed nausea #30 tablet GOi8gTd New Macrobid 100 mg Cap Take 1 tablet PO twice daily for 7 days. #14 tablet RFx10/19/23: Improved per pt, denies ss today. 2023-11-20 10:41:07 Follow up plan for jordyn rosalese symptoms:Chronic back pain greater than 3 months [...] sedationFor many years.Now at pain clinic in [facility], began seeing them on 12/07.On TramadolTizanindineGabapentinClonazepamTramadolTizanindineGabapentinClonazepa m [...] Documented (1125F)Continue to see PCP. Follow-up with [facility] as needed for any acute or disease education needs that may arise.Takes Tramadol 50 mg BID and has for 1+ yearsSafetyRisk of sedationSending Abiel been taking clonazepam for 10+ yearssafetyrisk of sedationFor many years.Now at pain clinic in [facility], began seeing them on 12/07.On TramadolTizanindineGabapentinClonazepamTramadolTizanindineGabapentinClonazepa malbuterol [...] sedationFor many years.Now at pain clinic in [facility], began seeing them on 12/07.On QivezzaiSynhtfnnbhaJvedxxkbggZgzeqoqzxc10/21/2023ontinues with pain, poor historian, unclear how much pain she is having today, appears to be active but nrbtxzWwgtxorhYtrtsdkwhlmZkchnmimejOhugyxzsyq62/21/2023ontinues with pain, pls cont tx as prescribed, [...] + days. Inhaler puffer 4/ day for lyypjokvmjlmaok61/21/2023Very difficult to assess. Not a relieble historian, [...] modifier 95)Continue to see PCP. Follow-up with [facility] as needed for any acute or disease [...] + days. Inhaler puffer 4/ day for kfhqwypwgrlfkze35/21/2023Very difficult to assess. Not a relieble historian, [...] inhalers/nebs.We will F/U next week.02/10 stable has qeskjhnhGnselgecNajgblxkuwfHjulvpumgaUmobqwpunv66/21/2023ontinues with pain, pls cont tx as prescribed, reports she was told that PT was not viable. Will investigate.02/10 has had this for years, will refer to neurologist, denies any bowel or bladder dysfunctionFor many years.Now at pain clinic in [facility], began seeing them on 12/07.On FengzvduBpbenljoaxoHrmxortzouUmfcevmnbq95/21/2023ontinues with pain, poor historian, unclear how much pain she is having today, appears to be active but hafopi37/28 for many years will refer to neurologist for management and care, denies any bowel or bladder dysfunction, ambulates with cane/ walker 09:02:49 Phone (patient, parent, or guardian); 5- 10 minutes of medical discussion (no modifier 95)Continue to see PCP. Follow-up with [facility] as needed for any acute or disease [...] orally BID PRN muscle spasms/pain #30 tablet EFo4zGr New Tylenol Extra Strength 500 mg Tab 2 tablet orally q 6hrs prn pain/fever #30 tablet IMv6mYm New Diclofenac Sodium 1 % Gel 4 grams topically to affected area 4 times per day PRN #100 gram BAe1eKs New Lidocaine 5 % Oint apply thin film to affected area TID prn pain #50 gram [id number] New predniSONE 20 mg Tab Take 2 tablets twice daily for 3 days, 1 tablet twice daily for 2 days, and 1 tablet daily for 2 days. #18 tab [id number] plan of care and conservative measures for [...] tablet orally Q6hrs prn pain/fever #30 tablet [id number] New Ondansetron 8 mg Tab Disintegrating 1 tablet orally every 8 hours as needed nausea #30 tablet VEs8uWv New Macrobid 100 mg Cap Take 1 [...] orally BID PRN muscle spasms/pain #30 tablet KBo9cBj New Tylenol Extra Strength 500 mg Tab 2 tablet orally q 6hrs prn pain/fever #30 tablet QLk0hQf New Diclofenac Sodium 1 % Gel 4 grams topically to affected area 4 times per day PRN #100 gram WDf5wPk New Lidocaine 5 % Oint apply thin film to affected area TID prn pain #50 gram JXa3rLq New predniSONE 20 mg Tab Take 2 tablets twice daily for 3 days, 1 tablet twice daily for 2 days, and 1 tablet daily for 2 days. #18 tab [id number] plan of care and conservative measures for [...] tablet orally Q6hrs prn pain/fever #30 tablet YGn1kMw New Ondansetron 8 mg Tab Disintegrating 1 tablet orally every 8 hours as needed nausea #30 tablet CJy3gSi New Macrobid 100 mg Cap Take 1 [...] orally BID PRN muscle spasms/pain #30 tablet FYl5rHh New Tylenol Extra Strength 500 mg Tab 2 tablet orally q 6hrs prn pain/fever #30 tablet SAx7ePu New Diclofenac Sodium 1 % Gel 4 grams topically to affected area 4 times per day PRN #100 gram WSs7eCi New Lidocaine 5 % Oint apply thin film to affected area TID prn pain #50 gram YOw4sYc New predniSONE 20 mg Tab Take 2 tablets twice daily for 3 days, 1 tablet twice daily for 2 days, and 1 tablet daily for 2 days. #18 tab [id number] plan of care and conservative measures for [...] tablet orally Q6hrs prn pain/fever #30 tablet JDd0vMm New Ondansetron 8 mg Tab Disintegrating 1 tablet orally every 8 hours as needed nausea #30 tablet SOf9iNg New Macrobid 100 mg Cap Take 1 tablet PO twice daily for 7 days. #14 tablet RFx10/19/23: Improved per pt, denies ss today. 11/20/23:Member describing dysuria and recurrent UTI symptomsStart bactrim DS BID x 5 daysEncouraged increased fluid intake, especially waterAPP f/u is scheduled for 11/21 regarding back symptoms, but can call back sooner for any new or worsened xvwipith85/8/24: Symptoms began 2 days ago on Tuesday. [...] low abd pain. [facility]. Follow-up with [facility] as needed for any acute or disease education needs that may arise 06/09. 12:52:24 Phone (patient, parent, or guardian); 11 [...] orally BID PRN muscle spasms/pain #30 tablet KAr0pDg New Tylenol Extra Strength 500 mg Tab 2 tablet orally q 6hrs prn pain/fever #30 tablet ZIr8bMu New Diclofenac Sodium 1 % Gel 4 grams topically to affected area 4 times per day PRN #100 gram FLz7uBx New Lidocaine 5 % Oint apply thin film to affected area TID prn pain #50 gram LBd3dYj New predniSONE 20 mg Tab Take 2 tablets twice daily for 3 days, 1 tablet twice daily for 2 days, and 1 tablet daily for 2 days. #18 tab [id number] plan of care and conservative measures for [...] orally BID PRN muscle spasms/pain #30 tablet UEd8zZu New Tylenol Extra Strength 500 mg Tab 2 tablet orally q 6hrs prn pain/fever #30 tablet TKd8zCg New Diclofenac Sodium 1 % Gel 4 grams topically to affected area 4 times per day PRN #100 gram RSn2zSv New Lidocaine 5 % Oint apply thin film to affected area TID prn pain #50 gram HFz1jRf New predniSONE 20 mg Tab Take 2 tablets twice daily for 3 days, 1 tablet twice daily for 2 days, and 1 tablet daily for 2 days. #18 tab [id number] plan of care and conservative measures for [...] 45 tabs. Will refill rx, sent to [facility].When member to call: 1. If bp is [...] in each nostril twice daily #1 each ZPb2Sfnwbc Promethazine-DM 6.25/15 mg/5ML Syrup 5 ml orally every 4-6 hours as needed for cough #200 ml IXo9Oms use cool mist vaporizer/humidifier next to bed [...] 80-89 ([id number])Continue to see PCP. Follow-up with [facility] as needed for any acute or disease [...] 45 tabs. [facility]: Tizanidine helps more than Flexeril. I last filled on 03/06/24 for 45 tabs, member requesting refill today, tolerating.Has been taking clonazepam for 10+ yearsDiscussed risk of sedationRx: Breo Elipta, Albuterol HFA PRN, Levalbuterol [facility] pulmonology follow up04/26/24: Saw her pulm today, she has URI symptoms. Has prescribed steroids but they do not agree with her stomach.03/04/24- Azelastine 0.1 % Solution Nasal use 2 sprays in each nostril twice daily #1 each VHv3Tiqard Promethazine-DM 6.25/15 mg/5ML Syrup 5 ml orally every 4-6 hours as needed for cough #200 ml AWz0Dlh use cool mist vaporizer/humidifier next to bed [...] Health Concerns Date Concern 2024-04-26 Visit completed in g audio/video. Patient/Guardian agreed to visit via telehealth. Today, patient has chief complaint of: follow up care and comprehensive review.Reviewed Allergies, Medications, Active Medical conditions, past medical/surgical history, Social history. 2024-04-26 [facility] - See Legal 2024-04-26 Most recent hospital stay(s) or ER visit(s) and precipitating factors: Denies 2024-04-26 Open HEDIS Measure r eview: Closed 2024-04-26 ECCA completed with BERTO code official and member
[2024-07-10 10:13] LABS: Basophils Absolute Auto 0.1 X10*3/uL (0.0-0.2); Basophils Percent Auto 0.9 % (0-2); Eosinophils Absolute Auto 0.4 X10*3/uL (0.0-0.4); Eosinophils Percent Auto 4.8 % (0-4); Hematocrit 35.8 % (37.0-47.0); Hemoglobin 11.5 g/dl (12.0-16.0); Imm Gran Abs Auto 0.02 X10*3/uL (0.00-0.03); Imm Gran Pct Auto 0.3 % (0.0-0.4); Lymphocytes Percent Auto 25.6 % (20-40); Mean Corpuscular HGB Conc 32.1 g/dl (31.0-35.0); Mean Corpuscular Hemoglobin 26.6 pg (27.0-33.0); Mean Corpuscular Volume 82.7 fL (80.0-98.0); Mean Platelet Volume 9.3 fL (9.4-12.3); Monocytes Absolute Auto 0.7 X10*3/uL (0.1-1.2); Monocytes Percent Auto 9.1 % (2-11); Neutrophils Absolute Auto 4.7 x10*3/uL (2.0-8.3); Neutrophils Percent Auto 59.3 % (45-73); Platelet Count 384 X10*3/uL (160-400); Red Blood Count 4.33 X10*6/uL (4.20-5.50); Red Cell Distribution Width 14.8 % (11.0-16.0); White Blood Count 7.8 X10*3/uL (4.8-10.8)
[2024-07-10 10:49] LABS: Rheumatoid Factor < 13.0 IU/mL (<15.0)
[2024-07-10 10:59] LABS: Erythrocyte Sedimentation Rate 21 MM/HR (0-20)
[2024-07-10 11:09] LABS: Alanine Aminotransferase 35 U/L (0-31); Albumin Level 4.6 g/dL (3.5-5.0); Alkaline Phosphatase 108 U/L (39-117); Anion Gap 11 (12-20); Aspartate Amino Transferase 38 U/L (5-31); Bilirubin Total 0.7 mg/dL (0.0-1.0); Blood Urea Nitrogen 6 mg/dL (9-16); C Reactive Protein 0.27 mg/dL (< or = 0.50); Calcium 9.7 mg/dL (8.4-10.2); Carbon Dioxide 28 mmol/L (22-29); Chloride 105 mmol/L (96-108); Estimated Glomerular Filt Rate > 60; Glucose Random 82 mg/dL (60-115); Potassium 3.5 mmol/L (3.3-5.1); Sodium 140 mmol/L (135-145); Total Protein 7.4 g/dL (6.5-8.0)
[2024-07-11 21:32] LABS: Anti DNA DS Antibody <1 IU/mL; Antibody to SS-A Antigen <1.0 NEG AI (<1.0 NEG); Antibody to SS-B Antigen <1.0 NEG AI (<1.0 NEG); SM/Ribonucleoprotein Ab <1.0 NEG AI (<1.0 NEG); Smith Protein <1.0 NEG AI (<1.0 NEG)
[2024-07-12 07:33] LABS: IgA 160 mg/dL (70-320); IgG 1021 mg/dL (600-1540); IgM 139 mg/dL (50-300)
[2024-07-12 11:19] LABS: Cyclic Citrullinated Peptide <16 UNITS
[2024-07-12 11:34] LABS: Anti Nuclear Antibody Screen NEGATIVE (NEGATIVE)
[2024-07-12 12:44] LABS: Complement C3 136 mg/dL (83-193)
[2024-07-13 18:19] LABS: Prot Elec - Albumin 4.1 g/dL (3.8-4.8); Prot Elec - Alpha1 0.3 g/dL (0.2-0.3); Prot Elec - Alpha2 0.8 g/dL (0.5-0.9); Prot Elec - Beta 1 0.4 g/dL (0.4-0.6); Prot Elec - Beta 2 0.3 g/dL (0.2-0.5); Prot Elec - Gamma 0.9 g/dL (0.8-1.7); Prot Elec - Total Protein 6.9 g/dL (6.1-8.1)
== END 2024-07-10 09:04 | disposition home or self-care (01) ==
LOC: HO.LAB 09:03
PROVIDERS: PCP Internal Medicine; Visit Provider Student in an Organized Health Care Education/Training Program
DX: M25.50 Pain in unspecified joint (principal)
CPT/HCPCS: 36415; 80053; 82784; 84165; 85025; 85652; 86038; 86140; 86160; 86200; 86225; 86235; 86334; 86431

== ENCOUNTER 2024-09-14 13:39 | Outpatient (AMB) | payer OTHER, SELFPAY ==
--- OUTSIDE RECORDS SUMMARY | 2024-09-14 13:42 | XMS_ITS ---
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 Press Adjuster Name Role Phone Nia Holley Unavailable [phone] Colette Esteves Unavailable [phone] Unavailable Unavailable Unavailable SUSAN IBARRA Unavailable [phone] Unavailable Unavailable [phone] Reason for Referral Not Available Allergies, adverse [...] on days 2-5 2023-08-24 2024-03-04 Polymyxin B-Trimethoprim 20276-8.1 UNIT/ML-% Solution Ophthalmic 1 drop ophthalmically into [...] MOUTH TWICE DAILY 2024-04-10 No Data Available [id number]-Dnxfsfzsv-PU [id number] Suspension SHAKE LIQUID AND INSTILL 4 DROPS TO RIGHT EAR EVERY 8 HOURS FOR 1 WEEK 2024-04-10 No Data Available traMADol 50 mg Tab 1 tablet orally tiny y as needed at bedtime 2024-04-26 No Data Available Amoxicillin-Pot Clavulanate 875/125 mg Tab Take 1 tablet PO twice daily for 7 days 2024-08-03 No Data Available Docusate Sodium 100 mg Cap 1 capsule orally daily 2024 No Data Available Cetirizine 10 mg Tab 1 tablet orally daily 2024-08-03 No Data Available Calcium + D3 250/3 mg-MCG Tab TAKE 1 TAB LET BY MOUTH TWICE DAILY 2024-04-05 No Data Available Pregabalin 25 mg Cap TAKE 1 CAPSULE BY M OUT TWICE DAILY 2024-07-03 No Data Available OYSTER SHELL CALCIUM 250MG W /D TABS TAKE 1 TABLET BY MOUTH TWICE DAILY 2024-08-29 No Data Available Problem List Problem Status Onset Date Resolved Date Synopsis Chronic prescription benzodiazepine use Active 2021-12-30 N/A Has been taki ng clonazepam for 10+ yearsDiscussed risk of sedation UTI (urinary tract infection)Nausea Resolved 2023-10-11 2024-04-2610/10/2023eRx N ew Tylenol Extra Strength 500 mg Tab 2 tablet orally Q6hrs prn pain/fever #30 tablet [id number] New Ondansetron 8 mg Tab Disintegrating 1 tablet orally every 8 hours as needed nausea #30 tablet IKs6vNb New Macrobid 100 mg Cap Take 1 tablet PO twice daily for 7 days. #14 tablet RFx10/19/23: Improved per pt, denies ss today. 11/20/23:Member describing dysuria and recurrent UTI symptomsStart bactrim DS BID x 5 daysEncouraged increased fluid intake, especially waterAPP f/u is scheduled for 11/21 regarding back symptoms, but can call back sooner for any new or worsened djoetcqx68/8/24: Symptoms began 2 days ago on Tuesday. [...] in each nostril twice daily #1 each [id number] Promethazine-DM 6.25/15 mg/5ML Syrup 5 ml orally every 4-6 hours as needed for cough #200 ml [id number] use cool mist vaporizer/humidifier next to bed Elevate HOB when lying down Increase water intake, warm tea with honey, salt water gargles.Contact [facility] if no improvement or symptoms become worse.3/13/25: Just finished antibiotics for ear infection prescribed [...] + days. Inhaler puffer 4/ day for ptagitfistzoevu05/21/2023Ve ry difficult to assess. Not a relieble [...] Rx: Breo Elipta, Albuterol HFA PRN, Levalbuterol nebsRsac-osage [facility] follow up04/26/24: Saw her pulm today, she has URI symptoms. Has prescribed steroids but they do not agree with her stomach. Other problems related to medical facilities and other health care Active 2023-09-01 N/A PAIN CO NTINGENCY PLANLast updated: 04/26/2024Member to call for the following symptoms: Fall / Increased pain/ Increased pain meds/ Joint swellingPlanned [...] 45 tabs. [facility] Tizanidine helps more than Flexeril. I last filled on 03/06/24 for 45 tabs, member requesting refill today, tolerating. Dental abscess and pain Active 2024-08-03 N/A 0 08/03/24: Rx: Amoxicillin-Pot Clavulanate 875/125 mg Tab-Take 1 tablet PO twice daily for 7 days. (also treating URI) Advised to take Tylenol or ibuprofen. Rinse mouth with warm salt water. Follow up with a Dentist. Contact [facility] 06/09 for any new, worsening or continued symptoms. URI (upper respiratory infection) Active 2024-08-03 N/A 08/03/24: Rx: Amoxicillin-Pot Clavulanate 875/125 mg Tab-Take 1 tablet PO twice daily for 7 days (also treating dental abscess) Albuterol inhaler and nebs every 2 hrs as needed. Zyrtec (cetirizine) or Claritin (loratadine) or Benadryl daily. Drink hot tea with honey and lemon. Contact [facility] 06/09 for any new, worsening or continued symptoms. Constipation Active 2024-08-03 N/A 08/03/24: Rx : Docusate Sodium 100 mg Cap-1 capsule orally daily. Advised to increase fluids and fiber intake (eat prunes or prune juice daily). Take OTC MiraLAX, Senna-S or Dulcolax, Dulcolax suppository. Contact [facility] 06/09 for any new, worsening or continued symptoms. Encounters Encounters Type Facility Date of Service Diagnosis/Co mplaint New patient,40-59min; chronic exacerbation, 2 stable chronic or 1 acute illness add add modifier 95 for video (do not use for phone, instead use 96904-83) [facility] Opioid dependence, uncomplicatedLong term (current) use of opiate analgesicSedative, hypnotic or anxiolytic dependence, uncomplicatedDorsalgia, unspecifiedSciatica, unspecified sideSacroiliitis, not elsewhere classified New patient,40-59min; chronic exacerbation, 2 stable chronic or 1 acute illness add add modifier 95 for video (do not use for phone, instead use 68269-84) [facility] New patient,40-59min; chronic exacerbation, 2 stable chronic or 1 acute illness add add modifier 95 for video (do not use for phone, instead use 28085-99) [facility] New patient,40-59min; chronic exacerbation, 2 stable chronic or 1 acute illness add add modifier 95 for video (do not use for phone, instead use 32237-84) [facility] New patient,40-59min; chronic exacerbation, 2 stable chronic or 1 acute illness add add modifier 95 for video (do not use for phone, instead use 48379-55) [facility] New patient,40-59min; chronic exacerbation, 2 stable chronic or 1 acute illness add add modifier 95 for video (do not use for phone, instead use 65246-72) [facility]20[place] New patient,40-59min; chronic exacerbation, 2 stable chronic or 1 acute illness add add modifier 95 for video (do not use for phone, instead use 64426-70) [facility]20[place] New patient,40-59min; chronic exacerbation, 2 stable chronic or 1 acute illness add add modifier 95 for video (do not use for phone, instead use 91128-87) [facility]20[place] New patient,40-59min; chronic exacerbation, 2 stable chronic or 1 acute illness add add modifier 95 for video (do not use for phone, instead use 70767-66) [facility]/2021 Estab. patient 30-39min; chronic exacerbation, 2 stable chronic or 1 acute illness add add modifier 95 for video, (do not use for phone, instead use 26544-30) [facility] 01[place]26/2023 Opioid dependence, uncomplicatedLong term (current) use of opiate analgesicSedative, hypnotic or anxiolytic dependence, uncomplicatedDorsalgia, unspecifiedSciatica, unspecified sideSacroiliitis, not elsewhere classifiedChronic obstructive pulmonary disease, unspecifiedCough, unspecified Estab. patient 30-39min; chronic exacerbation, 2 stable chronic or 1 acute illness add add modifier 95 for video, (do not use for phone, instead use 05213-10) [facility]/2023 Estab. patient 30-39min; chronic exacerbation, 2 stable chronic or 1 acute illness add add modifier 95 for video, (do not use for phone, instead use 11356-92) [facility]26/2023 Estab. patient 30-39min; chronic exacerbation, 2 stable chronic or 1 acute illness add add modifier 95 for video, (do not use for phone, instead use 08299-33) [facility] 01[place]26/2023 Estab. patient 30-39min; chronic exacerbation, 2 stable chronic or 1 acute illness add add modifier 95 for video, (do not use for phone, instead use 36558-08) [facility]26/2023 Estab. patient 30-39min; chronic exacerbation, 2 stable chronic or 1 acute illness add add modifier 95 for video, (do not use for phone, instead use 27671-92) [facility] 01[place]26/2023 Estab. patient 30-39min; chronic exacerbation, 2 stable chronic or 1 acute illness add add modifier 95 for video, (do not use for phone, instead use 54257-06) [facility]26/2023 Estab. patient 30-39min; chronic exacerbation, 2 stable chronic or 1 acute illness add add modifier 95 for video, (do not use for phone, instead use 06852-15) [facility]26/2023 Estab. patient 30-39min; chronic exacerbation, 2 stable chronic or 1 acute illness add add modifier 95 for video, (do not use for phone, instead use 78511-95) [facility]26/2023 Estab. patient 30-39min; chronic exacerbation, 2 stable chronic or 1 acute illness add add modifier 95 for video, (do not use for phone, instead use 21188-37) [facility] 01/26/2023 Estab. patient 30-39min; chronic exacerbation, 2 stable chronic or 1 acute illness add add modifier 95 for video, (do not use for phone, instead use 46640-30) [facility] 02[place]03/2023 Dorsalgia, unspecifiedSciati ca, unspecified sideSacroiliitis, not elsewhere classifiedChronic obstructive pulmonary disease, unspecifiedLong term (current) use of opiate analgesicCough, unspecified[place] [facility] [place] [place] Estab. patient 30-39min; chronic exacerbation, 2 stable chronic or 1 acute illness add add modifier 95 for video, (do not use for phone, instead use 75242-48) [facility] 02[place]03/2023 Estab. patient 30-39min; chronic exacerbation, 2 stable chronic or 1 acute illness add add modifier 95 for video, (do not use for phone, instead use 69696-61) [facility] Estab. patient 30-39min; chronic exacerbation, 2 stable chronic or 1 acute illness add add modifier 95 for video, (do not use for phone, instead use 44385-80) [facility] Estab. patient 30-39min; chronic exacerbation, 2 stable chronic or 1 acute illness add add modifier 95 for video, (do not use for phone, instead use 58040-37) [facility] Estab. patient 30-39min; chronic exacerbation, 2 stable chronic or 1 acute illness add add modifier 95 for video, (do not use for phone, instead use 64724-73) [facility] Estab. patient 30-39min; chronic exacerbation, 2 stable chronic or 1 acute illness add add modifier 95 for video, (do not use for phone, instead use 56824-41) [facility] Estab. patient 30-39min; chronic exacerbation, 2 stable chronic or 1 acute illness add add modifier 95 for video, (do not use for phone, instead use 80192-54) [facility]2023 No Data Available [facility]2023 Cough, unspecifiedSacroiliit is, not elsewhere classifiedDorsalgia, unspecifiedSciatica, unspecified side No Data Available [facility]2023 No Data Available [facility]/10[place]2023 No Data Available [facility]20[place] Dorsalgia, unspecifiedOther chronic painSacroiliitis, not elsewhere classifiedOther muscle spasmOpioid use, unspecified, uncomplicated No Data Available [facility]2023 No Data Available [facility]2023 Acute upper respiratory infection, unspecified No Data Available [facility]2023 No Data Available [facility] No Data Available [facility]2023 Acute upper respiratory infection, unspecifiedOther problems related to medical facilities and other health care No Data Available [facility]2023 Urinary tract infection, sit e not specifiedNausea No Data Available [facility]2023 No Data Available [facility]20[place] Estab. patient 30-39min; chronic exacerbation, 2 stable chronic or 1 acute illness add add modifier 95 for video, (do not use for phone, instead use 02292-35) [facility]19/2023 Dorsalgia, unspecifiedOther chronic painSacroiliitis, not elsewhere classifiedOther [employer]orer [employer] (current) drug therapyOther muscle spasmOpioid use, unspecified, uncomplicatedChronic obstructive pulmonary disease, unspecifiedOther problems related to medical facilities and other health careUrinary tract infection, site not specifiedNauseaPersonal history of nicotine dependence Estab. patient 30-39min; chronic exacerbation, 2 stable chronic or 1 acute illness add add modifier 95 for video, (do not use for phone, instead use 93837-01) [facility]19[place]20[place] Estab. patient 30-39min; chronic exacerbation, 2 stable chronic or 1 acute illness add add modifier 95 for video, (do not use for phone, instead use 13574-63) [facility] [place] 10[place]19/2023 Estab. patient 30-39min; chronic exacerbation, 2 stable chronic or 1 acute illness add add modifier 95 for video, (do not use for phone, instead use 91044-10) [facility] [place] 10[place]19/2023 Estab. patient 30-39min; chronic exacerbation, 2 stable chronic or 1 acute illness add add modifier 95 for video, (do not use for phone, instead use 30918-33) [facility] Estab. patient 30-39min; chronic exacerbation, 2 stable chronic or 1 acute illness add add modifier 95 for video, (do not use for phone, instead use 22095-69) [facility]19[place]2023 Estab. patient 30-39min; chronic exacerbation, 2 stable chronic or 1 acute illness add add modifier 95 for video, (do not use for phone, instead use 67895-75) [facility] Estab. patient 30-39min; chronic exacerbation, 2 stable chronic or 1 acute illness add add modifier 95 for video, (do not use for phone, instead use 32176-90) [facility] Estab. patient 30-39min; chronic exacerbation, 2 stable chronic or 1 acute illness add add modifier 95 for video, (do not use for phone, instead use 89260-18) [facility]19[place] Estab. patient 30-39min; chronic exacerbation, 2 stable chronic or 1 acute illness add add modifier 95 for video, (do not use for phone, instead use 14128-36) [facility]19[place] No Data Available [facility]2023 Sacroiliitis, not elsewhere classifiedDorsalgia, unspecifiedOther chronic painOther muscle spasmOpioid use, unspecified, uncomplicatedUrinary tract infection, site not specifiedNausea No Data Available [facility]20[place] No Data Available [facility]20[place] No Data Available [facility]20[place] No Data Available [facility]20[place] Dorsalgia, unspecifiedOther chronic painSacroiliitis, not elsewhere classifiedOther muscle spasmOpioid use, unspecified, uncomplicatedUrinary tract infection, site not specifiedNauseaOther problems related to medical facilities and other health care No Data Available [facility]2023 No Data Available [facility]09/2024 Dorsalgia, unspecifiedOther problems related to medical facilities and other health careOther chronic painSacroiliitis, not elsewhere classifiedOther muscle spasmOpioid use, unspecified, uncomplicated No Data Available [facility]09[place]20[place] Estab. patient 10-29min; 1 minor problem; add add modifier 95 for video, modifier 93 for phone [facility] Chronic obstructive pulmonar y disease, [...] elsewhere classifiedOther muscle spasmOpioid use, unspecified, uncomplicatedOther [place] [facility] [place] (current) drug therapyChronic obstructive pulmonary disease, unspecifiedAcute [...] 95 for video, modifier 93 for phone [facility] [place] Estab. patient 20-29min; 1 stable chronic or 2 minor; add add modifier 95 for video, modifier 93 for phone [facility] [place] Estab. patient 20-29min; 1 stable chronic or 2 minor; add add modifier 95 for video, modifier 93 for phone [facility] [place]/20[place] Estab. patient 10-29min; 1 minor problem; add add modifier 95 for video, modifier 93 for phone [facility] [place]03/2024 Periapical abscess without sinusOther specified disorders of teeth and supporting structuresAcute upper respiratory infection, unspecifiedConstipation, unspecified Estab. patient 10-29min; 1 minor problem; add add modifier 95 for video, modifier 93 for phone [facility] [place] 09[place]02/2024 Acute upper respiratory infection, unspecified Estab. patient 10-29min; 1 minor problem; add add modifier 95 for video, modifier 93 for phone [facility] [place]/02/20[place] Estab. patient 10-29min; 1 minor problem; add add modifier 95 for video, modifier 93 for phone [facility] [place] 09/02/20[place] Estab. patient 10-29min; 1 minor problem; add add modifier 95 for video, modifier 93 for phone [facility] [place] 09/02/2024 Vital Signs Date of Collection Vitals 2021-12-30 [...] - 86.0 mm[Hg]BP Systolic - 136.0 mm[Hg] 2024-09-02 14:33:54 BP Diastolic - 79.0 mm[Hg]BP Systolic - 138.0 mm[Hg]Heart Rate - 105.0 /minBody Temperature - 36.11 Disha Social History Social History Social History Observation Description Effec tive Time Current Smoking Status Former smoker 1 Sex Female History of Procedures Procedures Service Procedure code Service date Servicing provider Phone# New patient,40-59min; chronic exacerbation, 2 stable chronic or 1 acute illness add add modifier 95 for video (do not use for phone, instead use 36475-69) [id number] 2021-12-30 No Data Available No Data Availa [...] (do not use for phone, instead use 06747-70) [id number] 2023-01-26 No Data Available No Data Availa [...] ble Advance care planning discussed and documented advance care plan or surrogate decision-maker was [...] (do not use for phone, instead use 36979-44) [id number] 2023-02-03 No Data Available No Data Availa [...] ble Advance care planning discussed and documented advance care plan or surrogate decision-maker was [...] No Data Cecilia ilable No Data Available [id number] 2023-08-10 No Data Available No Data Available Medication List Documented (1159F) 1159F 2023-08-10 No Data Available No Data Cecilia ilable No Data Available [id number] 2023-08-24 No Data Available No Data Available SBP < 130 (3074F) 3074F 2023-08-24 No Data Available No Data Available DBP 80-89 (3079F) 3079F 2023-08-24 No Data Available No Data Available No Data Available [id number] 2023-09-01 No Data Available No Data Available No Data Available [id number] 2023-10-11 No Data Available No Data Available SBP >= 140 3077F 2023-10-11 No Data Available No Data Available DBP >=90 3080F 2023-10-11 No Data Available No Data Available Estab. patient 30-39min; chronic exacerbation, 2 stable chronic or 1 acute illness add add modifier 95 for video, (do not use for phone, instead use 44125-75) [id number] 2023-10-19 No Data Available No Data Availa [...] ble Advance care planning discussed and documented advance care plan or surrogate decision-maker was documented in the medical record. (1123F) 1123F 2023-10-19 No Data Available No Data Availa ble No Data Available 2023-11-20 No Data Available No Data Available Medication List Documented (1159F) 1159F 2023-11-20 No Data Available No Data Cecilia ilable SBP < 130 (3074F) 3074F 2023-11-20 No Data Available No Data Available DBP 80-89 (3079F) 3079F 2023-11-20 No Data Available No Data Available No Data Available [id number] 2023-11-22 No Data Available No Data Available Medication List Documented (1159F) 1159F 2023-11-22 No Data Available No Data Cecilia ilable No Data Available [id number] 2024-01-09 No Data Available No Data Available Medication List Documented (1159F) 1159F 2024-01-09 No Data Available No Data Cecilia ilable Estab. patient 10-29min; 1 minor problem; add add modifier 95 for video, modifier 93 for phone [id number] 2024-02-20 No Data Available No Data Availa ble Medication List Documented (1159F) 1159F 2024-02-20 No Data Available No Data Cecilia ilable BMI obtained (3008F) 3008F 2024-02-20 No Data Availab le No Data Available Estab. patient 10-29min; 1 minor problem; add add modifier 95 for video, modifier 93 for phone [id number] 2024-03-04 No Data Available No Data Availa ble Estab. patient 20-29min; 1 stable chronic or 2 minor; add add modifier 95 for video, modifier 93 for phone 35232 2024-04-26 No Data Available No Data Availa [...] ble Advance care planning discussed and documented advance care plan or surrogate decision-maker was documented in the medical record. (1123F) 1123F 2024-04-26 No Data Available No Data Availa ble Pain Assessment - NO pain present (1126F) 1126F 2024-04-26 No Data Available No Data A vailable SBP 130-139 (3075F) 3075F 2024-04-26 No Data Availabl e No Data Available DBP 80-89 (3079F) 3079F 2024-04-26 No Data Available No Data Available Estab. patient 10-29min; 1 minor problem; add add modifier 95 for video, modifier 93 for phone [id number] 2024-08-03 No Data Available No Data Availa ble Estab. patient 10-29min; 1 minor problem; add add modifier 95 for video, modifier 93 for phone [id number] 2024-09-02 No Data Available No Data Availa ble Pain Assessment - Pain Documented on a Pain Scale (1125F) 1125F 2024-09-02 No Data Available No Data Cecilia ilable SBP 130-139 (3075F) 3075F 2024-09-02 No Data Availabl e No Data Available DBP <80 (3078F) 3078F 2024-09-02 No Data Available No Data Available Functional [...] orally BID PRN muscle spasms/pain #30 tablet SJc8kQs New Tylenol Extra Strength 500 mg Tab 2 tablet orally q 6hrs prn pain/fever #30 tablet MEk6uBb New Diclofenac Sodium 1 % Gel 4 grams topically to affected area 4 times per day PRN #100 gram TXo7pCx New Lidocaine 5 % Oint apply thin film to affected area TID prn pain #50 gram HMr4yBm New predniSONE 20 mg Tab Take 2 tablets twice daily for 3 days, 1 tablet twice daily for 2 days, and 1 tablet daily for 2 days. #18 tab [id number] plan of care and conservative measures for [...] low abd pain. [facility] Follow[facility]up with [facility] as needed for any acute or disease education needs that may arise 06/09.UTI (urinary tract infection)Eomqkf7410/11/2023eRx New Tylenol Extra Strength 500 mg Tab 2 tablet orally Q6hrs prn pain/fever #30 tablet FOk0hAp New Ondansetron 8 mg Tab Disintegrating 1 tablet orally every 8 hours as needed nausea #30 tablet BRg2rNh New Macrobid 100 mg Cap Take 1 [...] to medical facilities and other health care 2024-08-03 09:20:38 Dental abscess and p ainURI (upper respiratory infection)Constipation 2024-09-02 14:33:54 Viral URI with cough Plan of Care Date of Service Plans [...] sedationFor many years.Now at pain clinic in [facility], began seeing them on 12/07.On TramadolTizanindineGabapentinClonazepamTramadolTizanindineGabapentinClonazepa m 06:13:17 Medication Review by prescribing provide r or pharmacist documented (1160F)Medication List Documented (1159F)Functional Status Assessed (1170F)Advance Care Directive Advance care planning discussion documented in the medical record (1158F)BMI obtained (3008F)SBP 130-139 (3075F)DBP <80 (3078F)Televideo 30-39min; chronic exacerbation, 2 stable chronic or 1 acute illness add modifier 95Advance care planning discussed and documented advance care plan or surrogate decision-maker was documented in the medical record. (1123F)Pain Assessment - Pain Documented (1125F)Continue to see PCP. Follow-up with [facility] as needed for any acute or disease education needs that may arise.Takes Tramadol 50 mg BID and has for 1+ yearsSafetyRisk of sedationSending Narcanhas been taking clonazepam for 10+ yearssafetyrisk of sedationFor many years.Now at pain clinic in [facility], began seeing them on 12/07.On TramadolTizanindineGabapentinClonazepamTramadolTizanindineGabapentinClonazepa [...] modifier 95Advance care planning discussed and documented advance care plan or surrogate decision-maker was documented in the medical record. (1123F)Pain Assessment - Pain Documented (1125F)Continue to see PCP. Follow-up with [facility] as needed for any acute or disease education needs that may arise.Takes Tramadol 50 mg BID and has for 1+ yearsSafetyRisk of sedationSending Abiel been taking clonazepam for 10+ yearssafetyrisk of sedationFor many years.Now at pain clinic in [facility], began seeing them on 12/07.On KjwoybzbPqzisgcppggVnnesmdxpoGoowxzmbgm81/21/2023ontinues with pain, poor historian, unclear how much pain she is having today, appears to be active but slfdiqNwssftimKytartgovolYxmgiqieqjVdoudhkttw90/21/2023ontinues with pain, pls cont tx as prescribed, [...] + days. Inhaler puffer 4/ day for zncrcotoywusmof28/21/2023Very difficult to assess. Not a relieble historian, [...] + days. Inhaler puffer 4/ day for wbyrwoxggcthnjb94/21/2023Very difficult to assess. Not a relieble historian, [...] inhalers/nebs.We will F/U next week.02/10 stable has tmcijhksJwdtebsoMwjmorymsmoOmhvtibyjsOutovcgzim44/21/2023ontinues with pain, pls cont tx as prescribed, reports she was told that PT was not viable. Will investigate.02/10 has had this for years, will refer to neurologist, denies any bowel or bladder dysfunctionFor many years.Now at pain clinic in [facility], began seeing them on 12/07.On ImxxjffnMfkoxyucjfiTjrqjxuuuoHbhrpxqltf01/21/2023ontinues with pain, poor historian, unclear how much pain she is having today, appears to be active but ixrrli35/28 for many years will refer to neurologist [...] orally BID PRN muscle spasms/pain #30 tablet VZl3qUz New Tylenol Extra Strength 500 mg Tab 2 tablet orally q 6hrs prn pain/fever #30 tablet FWo8lMq New Diclofenac Sodium 1 % Gel 4 grams topically to affected area 4 times per day PRN #100 gram TZv6rSf New Lidocaine 5 % Oint apply thin film to affected area TID prn pain #50 gram MVc1zOf New predniSONE 20 mg Tab Take 2 tablets twice daily for 3 days, 1 tablet twice daily for 2 days, and 1 tablet daily for 2 days. #18 tab YEh3vyicfnkc plan of care and conservative measures for [...] low abd pain. Please remember to call [facility] to see PCP. Follow-up with [facility] as [...] tablet orally Q6hrs prn pain/fever #30 tablet CFj0cNm New Ondansetron 8 mg Tab Disintegrating 1 tablet orally every 8 hours as needed nausea #30 tablet EAt1gOv New Macrobid 100 mg Cap Take 1 tablet PO twice daily for 7 days. #14 tablet RFx0 12:15:00 Televideo 30-39min; chronic exacerbation , 2 stable chronic or 1 acute illness add modifier 95Functional Status Assessed (1170F)BMI obtained (3008F)Advance Care Directive Advance care planning discussion documented in the medical record (1158F)Advance care planning discussed and documented advance care plan or surrogate decision-maker was [...] orally BID PRN muscle spasms/pain #30 tablet OPj8hTt New Tylenol Extra Strength 500 mg Tab 2 tablet orally q 6hrs prn pain/fever #30 tablet KCq4wDl New Diclofenac Sodium 1 % Gel 4 grams topically to affected area 4 times per day PRN #100 gram HOl9iPv New Lidocaine 5 % Oint apply thin film to affected area TID prn pain #50 gram FLl0dMc New predniSONE 20 mg Tab Take 2 tablets twice daily for 3 days, 1 tablet twice daily for 2 days, and 1 tablet daily for 2 days. #18 tab NZg1hgjklztd plan of care and conservative measures for [...] tablet orally Q6hrs prn pain/fever #30 tablet SIk3hIu New Ondansetron 8 mg Tab Disintegrating 1 tablet orally every 8 hours as needed nausea #30 tablet SMf9hZp New Macrobid 100 mg Cap Take 1 [...] orally BID PRN muscle spasms/pain #30 tablet CZd9yCm New Tylenol Extra Strength 500 mg Tab 2 tablet orally q 6hrs prn pain/fever #30 tablet EZm1jTh New Diclofenac Sodium 1 % Gel 4 grams topically to affected area 4 times per day PRN #100 gram ZHu2pSa New Lidocaine 5 % Oint apply thin film to affected area TID prn pain #50 gram PJg8bUn New predniSONE 20 mg Tab Take 2 tablets twice daily for 3 days, 1 tablet twice daily for 2 days, and 1 tablet daily for 2 days. #18 tab GAk1nbdquzsj plan of care and conservative measures for [...] tablet orally Q6hrs prn pain/fever #30 tablet KRm9wCo New Ondansetron 8 mg Tab Disintegrating 1 tablet orally every 8 hours as needed nausea #30 tablet YZr0hNm New Macrobid 100 mg Cap Take 1 tablet PO twice daily for 7 days. #14 tablet RFx10/19/23: Improved per pt, denies ss today. 11/20/23:Member describing dysuria and recurrent UTI symptomsStart bactrim DS BID x 5 daysEncouraged increased fluid intake, especially waterAPP f/u is scheduled for 11/21 regarding back symptoms, but can call back sooner for any new or worsened vpqoubou45/8/24: Symptoms began 2 days ago on Tuesday. [...] low abd pain. Please remember to call [facility] to see PCP. Follow-up with [facility] as [...] orally BID PRN muscle spasms/pain #30 tablet CYi3mRw New Tylenol Extra Strength 500 mg Tab 2 tablet orally q 6hrs prn pain/fever #30 tablet PJt6vFh New Diclofenac Sodium 1 % Gel 4 grams topically to affected area 4 times per day PRN #100 gram RBp8yAp New Lidocaine 5 % Oint apply thin film to affected area TID prn pain #50 gram CNh9jSh New predniSONE 20 mg Tab Take 2 tablets twice daily for 3 days, 1 tablet twice daily for 2 days, and 1 tablet daily for 2 days. #18 tab DBg9zeutjzlw plan of care and conservative measures for [...] low abd pain. Please remember to call [facility] to see PCP. Follow-up with [facility] as [...] orally BID PRN muscle spasms/pain #30 tablet UVs7jEu New Tylenol Extra Strength 500 mg Tab 2 tablet orally q 6hrs prn pain/fever #30 tablet IBv7kMt New Diclofenac Sodium 1 % Gel 4 grams topically to affected area 4 times per day PRN #100 gram ENa2oTg New Lidocaine 5 % Oint apply thin film to affected area TID prn pain #50 gram MBq4tSn New predniSONE 20 mg Tab Take 2 tablets twice daily for 3 days, 1 tablet twice daily for 2 days, and 1 tablet daily for 2 days. #18 tab WJd3idhsgkpf plan of care and conservative measures for [...] 45 tabs. Will refill rx, sent to [facility].When member to call: 1. If bp is elevated sbp>150; dbp>90 or symptomatic-h/a, dizziness, cp, sob. 2. if there is a fall 3. if BS >300 or BS<90 or symptomatic; i.e., dizzy, off balance , shaky, general weakness. 4. if UTI symptoms arise-urinary frequency, dysuria, low abd pain. [facility] Follow-up with [...] in each nostril twice daily #1 each ZSe3Winneb Promethazine-DM 6.25/15 mg/5ML Syrup 5 ml orally every 4-6 hours as needed for cough #200 ml TXz6Pfe use cool mist vaporizer/humidifier next to bed Elevate HOB when lying down Increase water intakeContact CB if no improvement or symptoms become worse.Can Use Nebs Q 4 hrs prn. 12:00:15 Functional Status Assessed (1170F)Advanc e Care Directive Advance care planning discussion documented in the medical record (1158F)Advance care planning discussed and documented advance care plan or surrogate decision-maker was documented in the medical record. (1123F)Estab. patient 20-29min; 1 stable chronic or 2 minor; add add modifier 95 for video, modifier 93 for phoneMedication List Documented (1159F)Medication Review by prescribing provider or pharmacist documented (1160F)Pain Assessment - NO pain present (1126F)SBP 130-139 (3075F)DBP 80-89 (3079F)Continue to see PCP. [facility] for any acute or disease [...] 45 tabs. Will refill rx, sent to [facility].04/26/24: Tizanidine helps more than Flexeril. I [...] in each nostril twice daily #1 each KTa3Rdxdhi Promethazine-DM 6.25/15 mg/5ML Syrup 5 ml orally every 4-6 hours as needed for cough #200 ml LZd0Xlz use cool mist vaporizer/humidifier next to bed [...] 04/26/2024Member to call for the following symptoms: Fall / Increased pain/ Increased pain meds/ Joint swellingPlanned intervention: Encourage extra fluid intake / Tylenol 1,000mg q6h/ Lidoderm patch 4% to affected area/ Voltaren gel to affected area/ Prednisone 50mg daily for 5 days/ Tizanidine 4mg every 8 hours/ Apply heat to affected area/ Apply ice to affected area 09:20:38 Televideo 10-29min; 1 minor problem; add add modifier 95 for video, modifier 93 for phoneContinue to see PCP. Follow-up with [facility] as needed for any acute or disease education needs that may arise 06/09.08/03/24: Rx: Amoxicillin-Pot Clavulanate 875/125 mg Tab-Take 1 tablet PO twice daily for 7 days. (also treating URI) Advised to take Tylenol or ibuprofen. Rinse mouth with warm salt water. Follow up with a Dentist. Contact [facility] 06/09 for any new, worsening or continued symptoms.08/03/24: Rx: Amoxicillin-Pot Clavulanate 875/125 mg Tab-Take 1 tablet PO twice daily for 7 days (also treating dental abscess) Albuterol inhaler and nebs every 2 hrs as needed. Zyrtec (cetirizine) or Claritin (loratadine) or Benadryl daily. Drink hot tea with honey and lemon. Contact [facility] 06/09 for any new, worsening or continued symptoms.08/03/24: Rx: Docusate Sodium 100 mg Cap-1 capsule orally daily. Advised to increase fluids and fiber intake (eat prunes or prune juice daily). Take OTC MiraLAX, Senna-S or Dulcolax, Dulcolax suppository. Contact [facility] 06/09 for any new, worsening or continued symptoms. 14:33:54 Televideo 10-29min; 1 minor problem; add add modifier 95 for video, modifier 93 for phoneContinue to see PCP. Follow-up with [facility] as needed for any acute or disease education needs that may arise 06/09.reviewed symptom management. Rest and push fluids. Tylenol prnOndansetron 8 mg Tab Disintegrating 1 tablet orally every 8 hours as needed nausea #20 tablet TQr9Gpnr for worsening symptoms. Goals Date Goal 2021-12-30 Remember to 2021-12-30 Call me if 2021-12-30 Keep it up 2023-02-10 continue medications as prescribed 2023-02-10 call if you feel ill , have any questions or concerns 2023-02-10 no new concerns, ebenezer l refer to neurology
[2024-09-14 13:48] VITALS: BP 110/60; PULSE 85; BMI 25.0
--- NOTE | 2024-09-14 13:48 | A.OFFVIS_ITS ---
Vital Signs 09/14/24 13:48 Height 5 ft Weight 127 lb 13.89 oz BMI 25.0 BP 110/60 Blood Pressure Location Lt brachial Position Sitting Pulse 85 Pulse Source Monitor Intake Visit Reasons: Office Visit, Est Patient Ref Req Lay Out Inspector Required: Yes Lay Out Inspector Name: PEDRITO [id number] Allergies naproxen Allergy (Intermediate, Verified 07/03/24 14:51) abdominal pain ibuprofen (From Motrin) Adverse Reaction (Mild, Verified 07/03/24 14:51) stomach pain Medication List - Last Reconciled 09/14/24 by Porter Guevara NP albuterol sulfate 90 mcg/actuation 2 inhalations inhalation Q6H PRN 30 days aspirin 81 mg PO DAILY 90 days bisacodyl (Dulcolax (bisacodyl)) 10 mg (2 x 5 mg) PO BEDTIME 30 days calcium carbonate-vitamin D3 250 mg-3.125 mcg (125 unit) (Oyster Shell Calcium- Vitamin D3) 1 tab PO BID 90 days cane quad cane cetirizine (All Day Allergy (cetirizine)) 10 mg PO DAILY PRN 90 days clonazepam 1 mg PO BEDTIME PRN 30 days diclofenac sodium 1% (Arthritis Pain (diclofenac)) 4 grams topical QID fluticasone furoate-vilanterol 200-25 mcg/dose (Breo Ellipta) 1 inh inhalation DAILY 30 days Grab bar As directed hydrocortisone 1% (Anti-Itch (hydrocortisone)) 1 appl topical BID PRN 30 days incontinence pad, liner, disp Use 1 pad three times a day incontinence pad, liner, disp Use 1 pad three times a day levalbuterol HCl 1.25 mg (3 mL) inhalation BID 30 days lidocaine 5% 2 patches topical DAILY 30 days nebulizers As directed pregabalin 25 mg PO BID 90 days [raised toilet seat As directed] roflumilast 500 mcg PO DAILY simethicone 180 mg PO QID 30 days tramadol 50 mg PO BID 30 days [wipes As directed] HPI Comments Details: This is a 73-year-old female patient coming in for complaints of palpitations. A tool marker was used throughout the visit. Patient with a history of hyperlipidemia, cirrhosis, sleep apnea, and emphysema. Patient was previously seen in the office a year ago for chest discomfort and shortness of breath. Patient had undergone an echo and a stress test following which patient underwent a coronary CTA. Today, patient reports feel having palpitations randomly lasting for half an hour. Patient notes that this is mostly happening in the evening and has some associated symptoms of fatigue with this. Patient is otherwise denying any exertional chest pain, shortness of breath, dizziness, orthopnea, PND, leg edema, presyncope, or syncope. Patient is reporting compliance with all her medications. [facility] Medical History Sacroiliitis Physical exam Chest pain Blurry vision Abnormal chest x-ray Pre-op examination Emphysema of lung Thoracic back pain Muscle spasm Back pain Chronic restrictive lung disease Temporomandibular joint (TMJ) pain Anemia Osteopenia Postmenopausal Obese Chronic pain syndrome Hypovitaminosis D Depression with anxiety Surgical History H/O colonoscopy S/P FARRAH-BSO (total abdominal hysterectomy and bilateral salpingo-oophorectomy) Family History Father No problems noted. Mother Emphysema lung Sister Colon cancer Social History Housing: Apartment Alcohol intake: never Patient Tobacco Use Status: Former Tobacco user Tobacco use type: Cigarette e-Cigarette/Vaping Use: Never Used Second Hand Smoke Exposure: No Advance Directives Date on File: 01/12/22 service: No Current occupational status: unemployed Cognitive needs: Yes Hearing needs: No Vision needs: No Review of Systems Const Denies weakness ENT Denies dizziness Card Denies chest pain, Denies chest pain with activity, Denies syncope, Denies rapid heart rate, Denies pedal edema, Denies edema, Denies leg edema, Denies lighth eadedness, Reports palpitations, Denies dyspnea, Denies dyspnea on exertion and Denies orthopnea Resp Denies cough, Denies dyspnea and Denies dyspnea on exertion GI Denies hematochezia and Denies change in stool character Musc Denies abnormal gait, Denies muscle cramps, Denies muscle weakness, Denies numbness, Denies radiating pain into limb and Denies tingling Neuro Denies abnormal gait, Denies dizziness, Denies syncope, Denies numbness, Denies tingling and Denies weakness Endo Reports palpitations Physical Exam Vital Signs: Last Vital Signs Pulse 85 09/14/24 13:48 BP 110/60 09/14/24 13:48 BMI result Body Mass Index 25.0 Const General: cooperative, healthy appearing, comfortable and no acute distress Orientation/consciousness: patient oriented x3 HEENT Head: Yes normal to inspection Neck Neck: Yes normal visual inspection, Yes trachea midline and Yes supple Chest Chest palpation & inspection: normal inspection of the chest Resp Effort & Inspection: normal respiratory effort Auscultation: clear to auscultation bilaterally, no crackles, no rales, no rhonchi and no wheezes Cardio Jugular venous distension: no JVD Palpation: normal PMI Rate: regular rate Rhythm: regular rhythm Heart sounds: S1 normal heart sound present, S2 normal heart sound present, no click, no gallops, no murmurs and no rubs Peripheral pulses: Peripheral pulses 2+ throughout GI Inspection: Yes normal to inspection Palpation (GI): Soft to palpation Auscultation: normal bowel sounds Skin General skin exam: no rashes or lesions noted Neuro General: patient oriented x3 Extrem General: Yes normal to inspection, No no pedal edema and No calf tenderness Psych Appearance: grossly normal Mental Status: mental status grossly normal Speech and movement: Normal speech and movement present Office Procedures EKG Details: EKG today showed normal sinus rhythm, rate 85 beats per minute, rightward axis, [place], [place] [id number]-[id number], Complete Assessment & Plan Assessment & Plan (1) Palpitations: Code(s): R00.2 - Palpitations Category: Medical (2) Coronary artery disease: Code(s): I25.10 - Atherosclerotic heart disease of [place] coronary artery without angina pectoris Category: Medical (3) Hyperlipidemia: Code(s): E78.5 - Hyperlipidemia, unspecified Category: Medical (4) MULUGETA (obstructive sleep apnea): Code(s): G47.33 - Obstructive sleep apnea (adult) (pediatric) Category: Medical Plan Previously for chest discomfort, patient underwent an echo study 08/30/2023 that showed normal LV systolic function with an ejection fraction between 55-60%. Patient had also undergone a myocardial perfusion study that showed inferolateral distal lateral as well as basal inferior ischemia. Following this patient underwent a coronary CTA on 09/29/2023 that showed minimal stenosis in the proximal and mid LAD and proximal RCA, and scattered mixed plaque in the descending thoracic aorta. Today, patient reports resolution of those chest discomfort and shortness of breath however is reporting some palpitations that occurs randomly and she gets fatigued during those episodes. We will get a Holter study to look for any potential arrhythmia. Given the mild coronary artery disease and her elevated LDL in the 120s, we will start patient on a low-dose statin therapy. Patient states she was put on aspirin therapy by pulmonology for unclear reasons. We will repeat a lipid profile in 3 months. Blood pressure within normal limits. Advised compliance with CPAP therapy. Advised heart healthy diet, regular exercise, adequate hydration, stress medication strategies, avoiding caffeinated beverages, and medication compliance. We will follow-up in 4 months. In the interim, patient will call the office with any concerns or change in symptoms. This note was generated using voice recognition software. While every effort has been made to ensure accuracy and proper facilities and grounds director, there may be occasional errors that could affect the content or meaning of the described symptoms. Orders: Orders ECG 3 day holter monitor Today R00.2 - Palpitations Liver Panel 3 Months E78.5 - Hyperlipidemia, unspecified AMB EKG-In Office Today R00.2 - Palpitations Lipid Panel 3 Months E78.5 - Hyperlipidemia, unspecified Medications: New atorvastatin (Lipitor) 20 mg PO DAILY 90 tabs 3RF Coding Level of Care Code Est Pt Level 4 (80421) Complex EM visit Add On G2211 Diagnoses Palpitations R00.2 Coronary artery disease I25.10 Hyperlipidemia E78.5 MULUGETA (obstructive sleep apnea) G47.33 CPT Codes EKG - CPT: 48139-[id number], Complete ([id number]) Time Spent (min) 32 Comment Time spent in reviewing the chart, test results, assessment, counseling and documentation.
== END 2024-09-14 14:31 | disposition home or self-care (01) ==
LOC: HO.HCS 13:40
PROVIDERS: PCP Internal Medicine
DX: R00.2 Palpitations (principal); I25.10 Atherosclerotic heart disease of native coronary artery without angina pectoris; E78.5 Hyperlipidemia, unspecified; G47.33 Obstructive sleep apnea (adult) (pediatric)
CPT/HCPCS: 93010; 99214; G2211

== ENCOUNTER → 2024-09-14 13:39 | Outpatient (BNVA) | payer OTHER, SELFPAY | PROVIDERS: PCP Internal Medicine | DX: I25.10 Atherosclerotic heart disease of native coronary artery without angina pectoris (principal); R00.2 Palpitations; E78.5 Hyperlipidemia, unspecified; G47.33 Obstructive sleep apnea (adult) (pediatric) | CPT/HCPCS: 93005; 99212 ==

== ENCOUNTER 2024-09-18 09:35 | Outpatient (AMB) | payer OTHER, SELFPAY ==
--- NOTE | 2024-09-18 09:44 | A.OFFVIS_ITS ---
Vital Signs 09/18/24 09:52 Height 5 ft Weight 130 lb BMI 25.4 BP 120/68 Blood Pressure Location Lt brachial Position Sitting Pulse 84 Pulse Source Pulse Oximeter Pulse Oximetry (%) 99 Oxygen Delivery Method Room Air Intake Visit Reasons: follow up Intake Note: Patient presents for Polyarthralgia follow up. Slat Twister Required: Yes Slat Twister Language: Malariologist Services: Slat Twister Offered & Declined Slat Twister Name: Dianna Mares Information Interpreted: non-clinical & clinical Senior Developer: Senior Developer Present (Dianna Mares) Accompanied by: Daughter Allergies naproxen Allergy (Intermediate, Verified 09/18/24 09:51) abdominal pain ibuprofen (From Motrin) Adverse Reaction (Mild, Verified 09/18/24 09:51) stomach pain Medication List - Last Reconciled 09/18/24 by Dominique Todd MD albuterol sulfate 90 mcg/actuation 2 inhalations inhalation Q6H PRN 30 days aspirin 81 mg PO DAILY 90 days atorvastatin (Lipitor) 20 mg PO DAILY bisacodyl (Dulcolax (bisacodyl)) 10 mg (2 x 5 mg) PO BEDTIME 30 days calcium carbonate-vitamin D3 250 mg-3.125 mcg (125 unit) (Oyster Shell Calcium- Vitamin D3) 1 tab PO BID 90 days cane quad cane cetirizine (All Day Allergy (cetirizine)) 10 mg PO DAILY PRN 90 days clonazepam 1 mg PO BEDTIME PRN 30 days diclofenac sodium 1% (Arthritis Pain (diclofenac)) 4 grams topical QID fluticasone furoate-vilanterol 200-25 mcg/dose (Breo Ellipta) 1 inh inhalation DAILY 30 days Grab bar As directed hydrocortisone 1% (Anti-Itch (hydrocortisone)) 1 appl topical BID PRN 30 days incontinence pad, liner, disp Use 1 pad three times a day incontinence pad, liner, disp Use 1 pad three times a day levalbuterol HCl 1.25 mg (3 mL) inhalation BID 30 days lidocaine 5% 2 patches topical DAILY 30 days nebulizers As directed pregabalin 25 mg PO BID 90 days [raised toilet seat As directed] roflumilast 500 mcg PO DAILY simethicone 180 mg PO QID 30 days tramadol 50 mg PO BID 30 days [wipes As directed] HPI Comments Details: Patient is a 73-year-old female with obstructive sleep apnea, bilateral carpal tunnel, spinal osteoarthritis with DISH, polyarticular OA, emphysema, liver cirrhosis, depression with anxiety and psoriasis here today for follow up Interval History: Patient last seen 07/03/24 with me - Followed up after new patient eval - Dx polyarticular OA - No improvement after right 1st CMC steroid injection - Generalized pain complaints - Started pregabalin and ordered labs Today - Unable to tolerate pregabalin - Continues to complain of widespread joint pain - Labs without evidence of RA or any other autoimmune disease Rheumatologic History: Polyarticular osteoarthritis Fibromyalgia - Tried: gabapentin, flexeril without benefit and had side effects Current Rheumatology Medication(s): Pregabalin 25mg bid [facility] Medical History (Updated 09/18/24 @ 12:48 by Dominique Todd MD) Fibromyalgia Sacroiliitis Physical exam Chest pain Blurry vision Abnormal chest x-ray Pre-op examination Emphysema of lung Thoracic back pain Muscle spasm Back pain Chronic restrictive lung disease Temporomandibular joint (TMJ) pain Anemia Osteopenia Postmenopausal Obese Chronic pain syndrome Hypovitaminosis D Depression with anxiety Surgical History H/O colonoscopy S/P FARRAH-BSO (total abdominal hysterectomy and bilateral salpingo-oophorectomy) Family History Father No problems noted. Mother Emphysema lung Sister Colon cancer Social History Housing: Apartment Alcohol intake: never Patient Tobacco Use Status: Former Tobacco user Tobacco use type: Cigarette e-Cigarette/Vaping Use: Never Used Second Hand Smoke Exposure: No Advance Directives Date on File: 01/12/22 service: No Current occupational status: unemployed Cognitive needs: Yes Hearing needs: No Vision needs: No Review of Systems Const Details: Review of Systems Constitutional: Denies fever, chills, weight loss ENT: Denies vision changes, eye pain or eye redness, dental caries, dry mouth GI: Denies nausea, vomiting, diarrhea, abdominal pain, change in BM Pulm: Denies SOB, [place], hemoptysis, wheezing Cards: Denies chest pain, palpitations Skin: Denies Raynaud's, rash, nail changes, photosensitivity, SPRING ASSEMBLER: Denies headaches, weakness, paresthesias, recurrent falls MSK: as per HPI All other systems reviewed and are unremarkable except noted above Physical Exam Exam Exam: Vital signs reviewed Physical Examination CONSTITUITIONAL Patient alert and cooperative. Well appearing and in no apparent painful distress HEENT Conjunctiva and sclera clear. No lymphadenopathy. CHEST/RESPIRATORY SYSTEM Normal respiratory effort and able to speak in complete sentences. Clear to auscultation bilaterally. No crackles, rales, rhonchi, wheezes heard. CARDIAC SYSTEM Regular rate and rhythm. S1 and S2 heard no murmurs. Radial pulses intact bilaterally MSK Hands * Unable to make a fist. TTP of bilateral 1st CMC. * TTP of the bilateral 2nd and 3rd MCPs * No TTP of the DIPs or PIPs Wrists * TTP without swelling bilaterally Elbows * Right Elbow: Full ROM. No swelling or TTP. TTP of the medial and lateral epicondyles * Left Elbow: Full ROM. No swelling or TTP. TTP of the medial and lateral epicondyles Shoulders * Decreased ROM bilaterally * TTP bilateral AC joint Hip bursa: Tenderness to palpation bilaterally Knees * Right knee: Full ROM. No swelling noted. No TTP of the knee joint line * Left knee: Full ROM. No swelling noted. No TTP of the knee joint line * TTP bilateral pes anserine bursa Ankles * Right ankle: Good ankle dorsiflexion and plantar flexion. No swelling. No TTP of the ankle joint * Left ankle: Good ankle dorsiflexion and plantar flexion. No swelling. No TTP of the ankle joint Feet * Right foot: Negative squeeze test * Left foot: Negative squeeze test Tender points? * Tenderness to palpation of the bilateral trapezius, supraspinatus, anterior costochondral junctions, bilateral suboccipital muscle insertions SKIN No rashes Vital Signs: Last Vital Signs Pulse 84 09/18/24 09:52 BP 120/68 09/18/24 09:52 Pulse Ox 99 09/18/24 09:52 Oxygen Delivery Method Room Air 09/18/24 09:52 BMI result Body Mass Index 25.4 Office Procedures AMB Joint Injection/Aspiration Joint Injection/Aspiration Details: Procedure was explained to the patient and informed consent was obtained. ? Risks associated with the procedure were discussed with the patient including but not limited to bleeding, infection, drug reactions and reactions to the topical anesthetic. Patient made aware of signs to look out for infectious complications. The area of interest was identified and confirmed with patient. ?This was subsequently cleaned with chlorhexidine x 2. ? The area was then anesthetized using ethyl chloride spray. 20 mg Kenalog with 0.5 cc 1% lidocaine was injected without issue. ?Minimal to no bleeding. ?Patient tolerated procedure. Primary Site: right thumb (right 1st CMC) Prep: site was prepped using aseptic technique and ethochloride spray was applied Injected: 20 mg of, Kenalog, with 0.5 mL of and 1% plain lidocaine Procedure: The patient tolerated the procedure well Coding - Small Joint Procedure code (CPT) selection complete AMB Joint Injection/Aspiration Joint Injection/Aspiration Details: Procedure was explained to the patient and informed consent was obtained. ? Risks associated with the procedure were discussed with the patient including but not limited to bleeding, infection, drug reactions and reactions to the topical anesthetic. Patient made aware of signs to look out for infectious complications. The area of interest was identified and confirmed with patient. ?This was subsequently cleaned with chlorhexidine x 2. ? The area was then anesthetized using ethyl chloride spray. 20 mg Kenalog with 0.5 cc 1% lidocaine was injected without issue. ?Minimal to no bleeding. ?Patient tolerated procedure. Primary Site: left thumb (1st CMC) Prep: site was prepped using aseptic technique and ethochloride spray was applied Injected: 20 mg of, Kenalog, with 0.5 mL of and 1% plain lidocaine Procedure: The patient tolerated the procedure well Coding - Small Joint Procedure code (CPT) selection complete Office Meds lidocaine (PF) 10 mg/mL (1 %) injection solution Performing Provider: Dominique Todd MD Performing Location: [facility] [place] [facility] Administered by: Rita Beaulieu RN on 09/18/24 10:37 Dose Route Admin Location Dispensed Lot Number Expiration Date [facility] [employer] 0.5 mL Infiltration Right 1st CMC 2 mL [id number] 07/14/26 40879-440-36 [facility] Total Dispensed Waste 2 mL 75 % Kenalog 40 mg/mL suspension for injection Performing Provider: Dominique Todd MD Performing Location: [facility] [place] [facility] Administered by: Rita Beaulieu RN on 09/18/24 10:37 Dose Route Admin Location Dispensed Lot Number Expiration Date [facility] [employer] 20 mg intra-articular Right 1st CMC 1 mL [id number] 08/13/25 80112-68 81-[address] [employer] Total Dispensed Waste 1 mL 50 % lidocaine (PF) 10 mg/mL (1 %) injection solution Performing Provider: Dominique Todd MD Performing Location: [facility] [place] [facility] Administered by: Rita Beaulieu RN on 09/18/24 10:37 Dose Route Admin Location Dispensed Lot Number Expiration Date [facility] [employer] 1 mL Infiltration left 1st CMC 2 mL [id number] 07/14/26 88490-566-82 [employer] Total Dispensed Waste 2 mL 50 % Kenalog 40 mg/mL suspension for injection Performing Provider: Dominique Todd MD Performing Location: [facility] [place] [facility] Administered by: Rita Beaulieu RN on 09/18/24 10:37 Dose Route Admin Location Dispensed Lot Number Expiration Date [facility] [employer] 20 mg intra-articular left 1st CMC 1 mL [id number] 08/13/25 09618-297 1-1 [employer] Total Dispensed Waste 1 mL 50 % Results Reviewed Results Reviewed: Laboratory Tests 06/20/24 07/10/24 08:33 09:20 WBC 7.8 RBC 4.33 Hgb 11.5 L Plt Count 384 ESR 21 H Sodium 140 Potassium 3.5 Chloride 105 Carbon Dioxide 28 BUN 6 L Creatinine 0.57 AST 27 38 H ALT 24 35 H C-Reactive Protein 0.27 25-OH Vitamin D Total 20.2 L Laboratory Tests 07/10/24 09:20 Rheumatoid Factor < 13.0 Cycl Citrul Peptide IgG <16 SUSAN Screen NEGATIVE SS-A/Ro Antibody <1.0 NEG SS-B/La Antibody <1.0 NEG Sm (Rubio) Antibody <1.0 NEG SM/TRACTOR ENGINE ASSEMBLER IgG Antibody <1.0 NEG Double Strand DNA Ab <1 Complement C3 136 Complement C4 24 Assessment & Plan Assessment & Plan (1) Fibromyalgia: Comment: Tried and failed: Gabapentin, Flexeril, Lyrica Amitriptyline is contraindicated in the setting of tramadol use and her history of coronary artery disease Code(s): M79.7 - Fibromyalgia Category: Medical Plan: #Fibromyalgia Patient is a 73-year-old female with fibromyalgia and polyarticular osteoarthritis here today for follow up. Extensive blood work including RF, CCP, SUSAN, Rubio, SSA/SSB and complement which were all normal. Mildly elevated ESR, but when corrected for age and sex it is normal. Normal CRP. Tried and failed: Gabapentin, Flexeril, Lyrica Amitriptyline is contraindicated in the setting of tramadol use and her history of coronary artery disease We will try low-dose duloxetine Plan - Stop lyrica - Duloxetine 30mg PO at night - Refer to pain management for back pain - RTC 4 months (2) Polyarticular osteoarthritis: Code(s): M15.9 - Polyosteoarthritis, unspecified Plan: #Polyarticular OA Steroid injection to bilateral 1st CMC joints today Plan I spent 30 minutes reviewing the record and labs, taking a history, examining the patient, discussing the treatment plan, ordering diagnostic work up and documenting in the medical record Orders: Orders AMB Joint Injection/Aspiration Today M19.049 - Primary osteoarthritis, unspecified hand AMB Joint Injection/Aspiration Today M19.049 - Primary osteoarthritis, unspecified hand Referrals Pain Management Referral M47.816 - Spondylosis without myelopathy or radiculopathy, lumbar region Medications: New duloxetine 30 mg PO .nightly 90 caps 1RF M79.7 - Fibromyalgia Discontinued pregabalin Discontinued Reason: Doctor's Order 25 mg PO BID 90 days 180 caps 1RF M48.10 - Ankylosing hyperostosis [[place]], site unspecified Coding Level of Care Code Est Pt Level 4 (08365) Diagnoses Fibromyalgia M79.7 Polyarticular osteoarthritis M15.9 CPT Codes Coding - 77102 - Small joint: 88893 - Small Joint ([id number]) Coding - 63135 - Small joint: 47181 - Small Joint ([id number])
[2024-09-18 09:52] VITALS: BP 120/68; PULSE 84; O2SAT 99; BMI 25.4
--- OUTSIDE RECORDS SUMMARY | 2024-09-18 10:01 | XMS_ITS ---
Author Name Nia Holley NP Address [address] [place] [address] Phone [phone] [facility] Care Team Providers Care Medical Social Consultant Name Role Phone Nia Holley Unavailable [phone] Colette Esteves Unavailable [phone] Unavailable Unavailable Unavailable SUSAN IBARRA Unavailable [phone] Unavailable Unavailable [phone] Reason for Referral Not Available Allergies, adverse [...] on days 2-5 2023-08-24 2024-03-04 Polymyxin B-Trimethoprim 18877-0.1 UNIT/ML-% Solution Ophthalmic 1 drop ophthalmically into [...] MOUTH TWICE DAILY 2024-04-10 No Data Available Fbeqmavw-Kwpoyfguz-VC 3.5-45153-9 Suspension SHAKE LIQUID AND INSTILL 4 DROPS [...] tablet orally Q6hrs prn pain/fever #30 tablet NJp5xKl New Ondansetron 8 mg Tab Disintegrating 1 tablet orally every 8 hours as needed nausea #30 tablet ACq2xDo New Macrobid 100 mg Cap Take 1 tablet PO twice daily for 7 days. #14 tablet RFx10/19/23: Improved per pt, denies ss today. 11/20/23:Member describing dysuria and recurrent UTI symptomsStart bactrim DS BID x 5 daysEncouraged increased fluid intake, especially waterAPP f/u is scheduled for 11/21 regarding back symptoms, but can call back sooner for any new or worsened bfsmqqly58/8/24: Symptoms began 2 days ago on Tuesday. [...] in each nostril twice daily #1 each ZYf7Ojpgdd Promethazine-DM 6.25/15 mg/5ML Syrup 5 ml orally every 4-6 hours as needed for cough #200 ml KYs4Khq use cool mist vaporizer/humidifier next to bed [...] + days. Inhaler puffer 4/ day for ergmhraedqvgeyb91/21/2023Ve ry difficult to assess. Not a relieble [...] Rx: Breo Elipta, Albuterol HFA PRN, [facility]al[facility]erol [facility]04/26/24: Saw her pulm today, [...] 45 tabs. [facility] Tizanidine helps more than Flexeril. I last filled on 03/06/24 for 45 tabs, member requesting refill today, tolerating. Dental abscess and pain Active 2024-08-03 N/A 0 08/03/24: Rx: Amoxicillin-Pot Clavulanate 875/125 mg Tab-Take 1 tablet PO twice daily for 7 days. (also treating URI) Advised to take Tylenol or ibuprofen. Rinse mouth with warm salt water. Follow up with a Dentist. Contact [facility] 06/09 for any new, worsening or continued symptoms. URI (upper respiratory infection) Active 2024-08-03 N/A 08/03/24: Rx: Amoxicillin-Pot Clavulanate 875/125 mg Tab-Take 1 tablet PO twice daily for 7 days (also treating dental abscess) Albuterol inhaler and nebs every 2 hrs as needed. Zyrtec (cetirizine) or Claritin (loratadine) or Benadryl daily. Drink hot tea with honey and lemon. Contact [facility] 06/09 for any new, worsening or continued symptoms. Constipation Active 2024-08-03 N/A 08/03/24: Rx : Docusate Sodium 100 mg Cap-1 capsule orally daily. Advised to increase fluids and fiber intake (eat prunes or prune juice daily). Take OTC MiraLAX, Senna-S or Dulcolax, Dulcolax suppository. Contact [facility] 06/09 for any new, worsening or continued symptoms. Encounters Encounters Type Facility Date of Service Diagnosis/Co mplaint New patient,40-59min; chronic exacerbation, 2 stable chronic or 1 acute illness add add modifier 95 for video (do not use for phone, instead use 36862-11) [facility] Opioid dependence, uncomplicatedLong term (current) use of opiate analgesicSedative, hypnotic or anxiolytic dependence, uncomplicatedDorsalgia, unspecifiedSciatica, unspecified sideSacroiliitis, not elsewhere classified New patient,40-59min; chronic exacerbation, 2 stable chronic or 1 acute illness add add modifier 95 for video (do not use for phone, instead use 98836-33) [facility] [place] 12/30/2021 New patient,40-59min; chronic exacerbation, 2 stable chronic or 1 acute illness add add modifier 95 for video (do not use for phone, instead use 18777-32) [facility] 12/30/20[place] New patient,40-59min; chronic exacerbation, 2 stable chronic or 1 acute illness add add modifier 95 for video (do not use for phone, instead use 96434-40) [facility] 12/[place]/20[place] New patient,40-59min; chronic exacerbation, 2 stable chronic or 1 acute illness add add modifier 95 for video (do not use for phone, instead use 54217-00) [facility] [place] 12/[place]/2021 New patient,40-59min; chronic exacerbation, 2 stable chronic or 1 acute illness add add modifier 95 for video (do not use for phone, instead use 49584-83) [facility] 12/[place]/2021 New patient,40-59min; chronic exacerbation, 2 stable chronic or 1 acute illness add add modifier 95 for video (do not use for phone, instead use 15809-56) [facility] 12/[place]/2021 New patient,40-59min; chronic exacerbation, 2 stable chronic or 1 acute illness add add modifier 95 for video (do not use for phone, instead use 25867-62) [facility] 12/[place]/20[place] New patient,40-59min; chronic exacerbation, 2 stable chronic or 1 acute illness add add modifier 95 for video (do not use for phone, instead use 77961-73) [facility] 12/30/2021 Estab. patient 30-39min; chronic exacerbation, 2 stable chronic or 1 acute illness add add modifier 95 for video, (do not use for phone, instead use 75902-54) [facility] 01/26/2023 Opioid dependence, uncomplicatedLong term (current) use of opiate analgesicSedative, hypnotic or anxiolytic dependence, uncomplicatedDorsalgia, unspecifiedSciatica, unspecified sideSacroiliitis, not elsewhere classifiedChronic obstructive pulmonary disease, unspecifiedCough, unspecified Estab. patient 30-39min; chronic exacerbation, 2 stable chronic or 1 acute illness add add modifier 95 for video, (do not use for phone, instead use 14672-86) [facility] [place] 01/26/2023 Estab. patient 30-39min; chronic exacerbation, 2 stable chronic or 1 acute illness add add modifier 95 for video, (do not use for phone, instead use 81489-40) [facility] [place] 01/26/2023 Estab. patient 30-39min; chronic exacerbation, 2 stable chronic or 1 acute illness add add modifier 95 for video, (do not use for phone, instead use 92385-70) [facility] [place] 01/26/2023 Estab. patient 30-39min; chronic exacerbation, 2 stable chronic or 1 acute illness add add modifier 95 for video, (do not use for phone, instead use 08993-02) [facility] [place] 01/26/2023 Estab. patient 30-39min; chronic exacerbation, 2 stable chronic or 1 acute illness add add modifier 95 for video, (do not use for phone, instead use 61235-30) [facility] 01/26/2023 Estab. patient 30-39min; chronic exacerbation, 2 stable chronic or 1 acute illness add add modifier 95 for video, (do not use for phone, instead use 21378-71) [facility] 01/26/2023 Estab. patient 30-39min; chronic exacerbation, 2 stable chronic or 1 acute illness add add modifier 95 for video, (do not use for phone, instead use 16626-50) [facility] 01/26/2023 Estab. patient 30-39min; chronic exacerbation, 2 stable chronic or 1 acute illness add add modifier 95 for video, (do not use for phone, instead use 57517-46) [facility] [place] 01/26/2023 Estab. patient 30-39min; chronic exacerbation, 2 stable chronic or 1 acute illness add add modifier 95 for video, (do not use for phone, instead use 39945-19) [facility] [place] 01/26/2023 Estab. patient 30-39min; chronic exacerbation, 2 stable chronic or 1 acute illness add add modifier 95 for video, (do not use for phone, instead use 94531-96) [facility] [place] 02/03/2023 Dorsalgia, unspecifiedSciati ca, unspecified sideSacroiliitis, not elsewhere classifiedChronic obstructive pulmonary disease, unspecifiedLong term (current) use of opiate analgesicCough, unspecifiedOther custodial (current) drug therapy Estab. patient 30-39min; chronic exacerbation, 2 stable chronic or 1 acute illness add add modifier 95 for video, (do not use for phone, instead use 01912-45) [facility] [place] 02/03/2023 Estab. patient 30-39min; chronic exacerbation, 2 stable chronic or 1 acute illness add add modifier 95 for video, (do not use for phone, instead use 36422-04) [facility] 02[place]03[place]20[place] Estab. patient 30-39min; chronic exacerbation, 2 stable chronic or 1 acute illness add add modifier 95 for video, (do not use for phone, instead use 40877-39) [facility] 02[place]03/20[place] Estab. patient 30-39min; chronic exacerbation, 2 stable chronic or 1 acute illness add add modifier 95 for video, (do not use for phone, instead use 76955-40) [facility] 02/03/20[place] Estab. patient 30-39min; chronic exacerbation, 2 stable chronic or 1 acute illness add add modifier 95 for video, (do not use for phone, instead use 54773-98) [facility] 02/03/20[place] Estab. patient 30-39min; chronic exacerbation, 2 stable chronic or 1 acute illness add add modifier 95 for video, (do not use for phone, instead use 29267-85) [facility] 02/03/2023 Estab. patient 30-39min; chronic exacerbation, 2 stable chronic or 1 acute illness add add modifier 95 for video, (do not use for phone, instead use 21521-59) [facility] 02/03/2023 No Data Available [facility] 02/10/2023 Cough, unspecifiedSacroiliit is, not elsewhere classifiedDorsalgia, unspecifiedSciatica, unspecified side No Data Available [facility] 02/10/2023 No Data Available [facility] 02/10/2023 No Data Available [facility] 08/10/2023 Dorsalgia, unspecifiedOther chronic painSacroiliitis, not elsewhere classifiedOther muscle spasmOpioid use, unspecified, uncomplicated No Data Available [facility] 08/10/2023 No Data Available [facility] 08/24/2023 Acute upper respiratory infection, unspecified No Data Available [facility] 08/24/2023 No Data Available [facility] 08/24/2023 No Data Available [facility] 09/01/2023 Acute upper respiratory infection, unspecifiedOther problems related to medical facilities and other health care No Data Available [facility] 10/11/2023 Urinary tract infection, sit e not specifiedNausea No Data Available [facility] 10/11/2023 No Data Available [facility] 10[place]11/2023 Estab. patient 30-39min; chronic exacerbation, 2 stable chronic or 1 acute illness add add modifier 95 for video, (do not use for phone, instead use 48977-85) [facility] 10/19/2023 Dorsalgia, unspecifiedOther chronic painSacroiliitis, not elsewhere classifiedOther superintendent container terminal (current) drug therapyOther muscle spasmOpioid use, unspecified, uncomplicatedChronic obstructive pulmonary disease, unspecifiedOther problems related to medical facilities and other health careUrinary tract infection, site not specifiedNauseaPersonal history of nicotine dependence Estab. patient 30-39min; chronic exacerbation, 2 stable chronic or 1 acute illness add add modifier 95 for video, (do not use for phone, instead use 57134-89) [facility] [place] 10/19/2023 Estab. patient 30-39min; chronic exacerbation, 2 stable chronic or 1 acute illness add add modifier 95 for video, (do not use for phone, instead use 80658-16) [facility] [place] 10/19/2023 Estab. patient 30-39min; chronic exacerbation, 2 stable chronic or 1 acute illness add add modifier 95 for video, (do not use for phone, instead use 01016-83) [facility] [place] 10/19/2023 Estab. patient 30-39min; chronic exacerbation, 2 stable chronic or 1 acute illness add add modifier 95 for video, (do not use for phone, instead use 03699-75) [facility] 10[place]19[place]20[place] Estab. patient 30-39min; chronic exacerbation, 2 stable chronic or 1 acute illness add add modifier 95 for video, (do not use for phone, instead use 74464-69) [facility] [place] 10/19/2023 Estab. patient 30-39min; chronic exacerbation, 2 stable chronic or 1 acute illness add add modifier 95 for video, (do not use for phone, instead use 55011-42) [facility] 10[place]19/2023 Estab. patient 30-39min; chronic exacerbation, 2 stable chronic or 1 acute illness add add modifier 95 for video, (do not use for phone, instead use 37228-04) [facility] 10/19/2023 Estab. patient 30-39min; chronic exacerbation, 2 stable chronic or 1 acute illness add add modifier 95 for video, (do not use for phone, instead use 44684-19) [facility] 10/19/2023 Estab. patient 30-39min; chronic exacerbation, 2 stable chronic or 1 acute illness add add modifier 95 for video, (do not use for phone, instead use 11072-10) [facility] 10/19/2023 No Data Available [facility] 11/20/2023 Sacroiliitis, not elsewhere classifiedDorsalgia, unspecifiedOther chronic painOther muscle spasmOpioid use, unspecified, uncomplicatedUrinary tract infection, site not specifiedNausea No Data Available [facility] 11/20/2023 No Data Available [facility] 11/20/2023 No Data Available [facility] 11/20/2023 No Data Available [facility] 11/22/2023 Dorsalgia, unspecifiedOther chronic painSacroiliitis, not elsewhere classifiedOther muscle spasmOpioid use, unspecified, uncomplicatedUrinary tract infection, site not specifiedNauseaOther problems related to medical facilities and other health care No Data Available [facility] 11/22/2023 No Data Available [facility] 01/09/2024 Dorsalgia, unspecifiedOther problems related to medical facilities and other health careOther chronic painSacroiliitis, not elsewhere classifiedOther muscle spasmOpioid use, unspecified, uncomplicated No Data Available [facility] 01/09/2024 Estab. patient 10-29min; [...] elsewhere classifiedOther muscle spasmOpioid use, unspecified, uncomplicatedOther custodial (current) drug therapyChronic obstructive pulmonary disease, unspecifiedAcute [...] 95 for video, modifier 93 for phone [facility] Estab. patient 20-29min; 1 stable chronic or 2 minor; add add modifier 95 for video, modifier 93 for phone [facility] ([place] 04/26/20[place] Estab. patient 20-29min; 1 stable chronic or 2 minor; add add modifier 95 for video, modifier 93 for phone [facility] [place]/20[place] Estab. patient 10-29min; 1 minor problem; add add modifier 95 for video, modifier 93 for phone [facility] [place] 08/03/2024 Periapical abscess without sinusOther specified disorders of teeth and supporting structuresAcute upper respiratory infection, unspecifiedConstipation, unspecified Estab. patient 10-29min; 1 minor problem; add add modifier 95 for video, modifier 93 for phone [facility] ([place] 09/02/2024 Acute upper respiratory infection, unspecified Estab. patient 10-29min; 1 minor problem; add add modifier 95 for video, modifier 93 for phone [facility] [place] 09/02/20[place] Estab. patient 10-29min; 1 minor problem; add add modifier 95 for video, modifier 93 for phone [facility] [place] 09/02/20[place] Estab. patient 10-29min; 1 minor problem; add add modifier 95 for video, modifier 93 for phone [facility] ([place] 09/02/2024 Vital Signs Date of Collection [...] tive Time Current Smoking Status Former smoker 5 Sex Female History of Procedures Procedures Service Procedure code Service date Servicing provider Phone# New patient,40-59min; chronic exacerbation, 2 stable chronic or 1 acute illness add add modifier 95 for video (do not use for phone, instead use 89938-39) [id number] 2021-12-30 No Data Available No Data Availa [...] (do not use for phone, instead use 64236-33) [id number] 2023-01-26 No Data Available No Data Availa [...] (do not use for phone, instead use 22871-67) [id number] 2023-02-03 No Data Available No Data Availa [...] No Data Cecilia ilable No Data Available [id number] 2023-08-10 No Data Available No Data Available Medication List Documented (1159F) 1159F 2023-08-10 No Data Available No Data Cecilia ilable No Data Available [id number] 2023-08-24 No Data Available No Data Available SBP < 130 (3074F) 3074F 2023-08-24 No Data Available No Data Available DBP 80-89 (3079F) 3079F 2023-08-24 No Data Available No Data Available No Data Available [id number] 2023-09-01 No Data Available No Data Available No Data Available [id number] 2023-10-11 No Data Available No Data Available SBP >= 140 3077F 2023-10-11 No Data Available No Data Available DBP >=90 3080F 2023-10-11 No Data Available No Data Available Estab. patient 30-39min; chronic exacerbation, 2 stable chronic or 1 acute illness add add modifier 95 for video, (do not use for phone, instead use 88393-38) [id number] 2023-10-19 No Data Available No Data Availa [...] Available No Data Available No Data Available [id number] 2023-11-22 No Data Available No Data Available Medication List Documented (1159F) 1159F 2023-11-22 No Data Available No Data Cecilia ilable No Data Available [id number] 2024-01-09 No Data Available No Data Available Medication List Documented (1159F) 1159F 2024-01-09 No Data Available No Data Cecilia ilable Estab. patient 10-29min; 1 minor problem; add add modifier 95 for video, modifier 93 for phone [id number] 2024-02-20 No Data Available No Data Availa ble Medication List Documented (1159F) 1159F 2024-02-20 No Data Available No Data Cecilia ilable BMI obtained (3008F) 3008F 2024-02-20 No Data Availab le No Data Available Estab. patient 10-29min; 1 minor problem; add add modifier 95 for video, modifier 93 for phone [id number] 2024-03-04 No Data Available No Data Availa ble Estab. patient 20-29min; 1 stable chronic or 2 minor; add add modifier 95 for video, modifier 93 for phone [id number] 2024-04-26 No Data Available No Data Availa [...] 95 for video, modifier 93 for phone [id number] 2024-08-03 No Data Available No Data Availa ble Estab. patient 10-29min; 1 minor problem; add add modifier 95 for video, modifier 93 for phone [id number] 2024-09-02 No Data Available No Data Availa [...] orally BID PRN muscle spasms/pain #30 tablet KYz7rKj New Tylenol Extra Strength 500 mg Tab 2 tablet orally q 6hrs prn pain/fever #30 tablet YEa4wUk New Diclofenac Sodium 1 % Gel 4 grams topically to affected area 4 times per day PRN #100 gram SVs5uRe New Lidocaine 5 % Oint apply thin film to affected area TID prn pain #50 gram RBw3kEy New predniSONE 20 mg Tab Take 2 tablets twice daily for 3 days, 1 tablet twice daily for 2 days, and 1 tablet daily for 2 days. #18 tab KRt4vsmipiim plan of care and conservative measures for [...] low abd pain. [facility] Follow-up with [facility] as needed for any acute or disease education needs that may arise 06/09.UTI (urinary tract infection)Fvardb7310/11/2023eRx New Tylenol Extra Strength 500 mg Tab 2 tablet orally Q6hrs prn pain/fever #30 tablet BHa0sFj New Ondansetron 8 mg Tab Disintegrating 1 tablet orally every 8 hours as needed nausea #30 tablet IEx7kKq New Macrobid 100 mg Cap Take 1 [...] sedationFor many years.[facility] began seeing them on 12/07.On TramadolTizanindineGabapentinClonazepamTramadolTizanindineGabapentinClonazepa [...] sedationFor many years.[facility] at [facility], [facility] seeing them on 12/07.On TramadolTizanindineGabapentinClonazepamTramadolTizanindineGabapentinClonazepa [...] sedationFor many years.[facility] at [facility], began seeing them on 12/07.On BmucpluzWilzleeuyucEsmxgziynpXdynilpqnk32/21/2023ontinues with pain, poor historian, unclear how much pain she is having today, appears to be active but wwpfrlVqdjwguuQnmwimdwfwlFwgysabvlxJtqeapmbgi62/21/2023ontinues with pain, pls cont tx as prescribed, [...] + days. Inhaler puffer 4/ day for muoulmhsltlvega10/21/2023Very difficult to assess. Not a relieble historian, [...] + days. Inhaler puffer 4/ day for txjmtunhrhrmpav72/21/2023Very difficult to assess. Not a relieble historian, [...] inhalers/nebs.We will F/U next week.02/10 stable has zfqpyegoOwcyvxjlHucjxytkjepTobykzgvouZxfxgcxqxe20/21/2023ontinues with pain, pls cont tx as prescribed, reports she was told that PT was not viable. Will investigate.02/10 has had this for years, will refer to neurologist, denies any bowel or bladder dysfunctionFor many years.[facility], began seeing them on 12/07.On YoltriocBamzxmghogpHoiuiwvcujKvuokjmpyr15/21/2023ontinues with pain, poor historian, unclear how much pain she is having today, appears to be active but yewemf01/28 for many years will refer to neurologist [...] orally BID PRN muscle spasms/pain #30 tablet WXd2jYp New Tylenol Extra Strength 500 mg Tab 2 tablet orally q 6hrs prn pain/fever #30 tablet GMz0qQo New Diclofenac Sodium 1 % Gel 4 grams topically to affected area 4 times per day PRN #100 gram OBv2gMq New Lidocaine 5 % Oint apply thin film to affected area TID prn pain #50 gram WNo5rWc New predniSONE 20 mg Tab Take 2 tablets twice daily for 3 days, 1 tablet twice daily for 2 days, and 1 tablet daily for 2 days. #18 tab TNd2sibbodrr plan of care and conservative measures for [...] low abd pain. Please remember to call [facility] to see PCP. Follow-up with [facility] as [...] tablet orally Q6hrs prn pain/fever #30 tablet MTt8bFi New Ondansetron 8 mg Tab Disintegrating 1 tablet orally every 8 hours as needed nausea #30 tablet XZe0lXc New Macrobid 100 mg Cap Take 1 [...] orally BID PRN muscle spasms/pain #30 tablet BVd8lOt New Tylenol Extra Strength 500 mg Tab 2 tablet orally q 6hrs prn pain/fever #30 tablet PKt0aYb New Diclofenac Sodium 1 % Gel 4 grams topically to affected area 4 times per day PRN #100 gram YZh9qEx New Lidocaine 5 % Oint apply thin film to affected area TID prn pain #50 gram WRp2eDp New predniSONE 20 mg Tab Take 2 tablets twice daily for 3 days, 1 tablet twice daily for 2 days, and 1 tablet daily for 2 days. #18 tab MYr0bmuykhng plan of care and conservative measures for [...] tablet orally Q6hrs prn pain/fever #30 tablet UNf8rFe New Ondansetron 8 mg Tab Disintegrating 1 tablet orally every 8 hours as needed nausea #30 tablet TSn2yMm New Macrobid 100 mg Cap Take 1 [...] orally BID PRN muscle spasms/pain #30 tablet MCw0rSs New Tylenol Extra Strength 500 mg Tab 2 tablet orally q 6hrs prn pain/fever #30 tablet EGl3qLi New Diclofenac Sodium 1 % Gel 4 grams topically to affected area 4 times per day PRN #100 gram XTp9oAh New Lidocaine 5 % Oint apply thin film to affected area TID prn pain #50 gram JZx9dGh New predniSONE 20 mg Tab Take 2 tablets twice daily for 3 days, 1 tablet twice daily for 2 days, and 1 tablet daily for 2 days. #18 tab SRd2dcoiafzy plan of care and conservative measures for [...] tablet orally Q6hrs prn pain/fever #30 tablet AJu5eQq New Ondansetron 8 mg Tab Disintegrating 1 tablet orally every 8 hours as needed nausea #30 tablet SUc1dVk New Macrobid 100 mg Cap Take 1 tablet PO twice daily for 7 days. #14 tablet RFx10/19/23: Improved per pt, denies ss today. 11/20/23:Member describing dysuria and recurrent UTI symptomsStart bactrim DS BID x 5 daysEncouraged increased fluid intake, especially waterAPP f/u is scheduled for 11/21 regarding back symptoms, but can call back sooner for any new or worsened tfhovnnc38/8/24: Symptoms began 2 days ago on Tuesday. [...] low abd pain. Please remember to call [facility] to see PCP. Follow-up with [facility] as [...] orally BID PRN muscle spasms/pain #30 tablet [id number] New Tylenol Extra Strength 500 mg Tab 2 tablet orally q 6hrs prn pain/fever #30 tablet [id number] New Diclofenac Sodium 1 % Gel 4 grams topically to affected area 4 times per day PRN #100 gram [id number] New Lidocaine 5 % Oint apply thin film to affected area TID prn pain #50 gram [id number] New predniSONE 20 mg Tab Take 2 tablets twice daily for 3 days, 1 tablet twice daily for 2 days, and 1 tablet daily for 2 days. #18 tab [id number] plan of care and conservative measures for [...] low abd pain. Please remember to call [facility] to see PCP. Follow-up with [facility] as [...] orally BID PRN muscle spasms/pain #30 tablet [id number] New Tylenol Extra Strength 500 mg Tab 2 tablet orally q 6hrs prn pain/fever #30 tablet [id number] New Diclofenac Sodium 1 % Gel 4 grams topically to affected area 4 times per day PRN #100 gram VEs4uDd New Lidocaine 5 % Oint apply thin film to affected area TID prn pain #50 gram [id number] New predniSONE 20 mg Tab Take 2 tablets twice daily for 3 days, 1 tablet twice daily for 2 days, and 1 tablet daily for 2 days. #18 tab [id number] plan of care and conservative measures for [...] 45 tabs. Will refill rx, sent to [facility].When member to call: 1. If bp is elevated sbp>150; dbp>90 or symptomatic-h/a, dizziness, cp, sob. 2. if there is a fall 3. if BS >300 or BS<90 or symptomatic; i.e., dizzy, off balance , shaky, general weakness. 4. if UTI symptoms arise-urinary frequency, dysuria, low abd pain. [facility]. Follow-up with [...] in each nostril twice daily #1 each XSs8Iklrys Promethazine-DM 6.25/15 mg/5ML Syrup 5 ml orally every 4-6 hours as needed for cough #200 ml [id number] use cool mist vaporizer/humidifier next to bed [...] 80-89 ([id number])Continue to see PCP. Follow-up with [facility] as needed for any acute or disease [...] 45 tabs. Will refill rx, sent to [facility].04/26/24: Tizanidine helps more than Flexeril. I last filled on 03/06/24 for 45 tabs, member requesting refill today, tolerating.Has been taking clonazepam for 10+ yearsDiscussed risk of sedationRx: Breo Elipta, Albuterol HFA PRN, Levalbuterol [facility] pulmonology follow up04/26/24: Saw her pulm today, she has URI symptoms. Has prescribed steroids but they do not agree with her stomach.03/04/24- Azelastine 0.1 % Solution Nasal use 2 sprays in each nostril twice daily #1 each [id number] Promethazine-DM 6.25/15 mg/5ML Syrup 5 ml orally every 4-6 hours as needed for cough #200 ml ORs7Rii use cool mist vaporizer/humidifier next to bed [...] for phoneContinue to see PCP. Follow-up with [facility] as needed for any acute or disease education needs that may arise 06/09.08/03/24: Rx: Amoxicillin-Pot Clavulanate 875/125 mg Tab-Take 1 tablet PO twice daily for 7 days. (also treating URI) Advised to take Tylenol or ibuprofen. Rinse mouth with warm salt water. Follow up with a Dentist. Contact [facility] 06/09 for any new, worsening or continued symptoms.08/03/24: Rx: Amoxicillin-Pot Clavulanate 875/125 mg Tab-Take 1 tablet PO twice daily for 7 days (also treating dental abscess) Albuterol inhaler and nebs every 2 hrs as needed. Zyrtec (cetirizine) or Claritin (loratadine) or Benadryl daily. Drink hot tea with honey and lemon. Contact [facility] 06/09 for any new, worsening or continued symptoms.08/03/24: Rx: Docusate Sodium 100 mg Cap-1 capsule orally daily. Advised to increase fluids and fiber intake (eat prunes or prune juice daily). Take OTC MiraLAX, Senna-S or Dulcolax, Dulcolax suppository. Contact [facility] 06/09 for any new, worsening or continued symptoms. 14:33:54 Televideo 10-29min; 1 minor problem; add add modifier 95 for video, modifier 93 for phoneContinue to see PCP. Follow-up with [facility] as needed for any acute or disease education needs that may arise 06/09.reviewed symptom management. Rest and push fluids. Tylenol prnOndansetron 8 mg Tab Disintegrating 1 tablet orally every 8 hours as needed nausea #20 tablet [id number] for worsening symptoms. Goals Date Goal 2021-12-30 Remember to 2021-12-30 Call me if 2021-12-30 Keep it up 2023-02-10 continue medications as prescribed 2023-02-10 call if you feel ill , have any questions or concerns 2023-02-10 no new concerns, ebenezer l refer to neurology
== END 2024-09-18 10:48 | disposition home or self-care (01) ==
PROVIDERS: PCP Internal Medicine; Visit Provider Student in an Organized Health Care Education/Training Program
DX: M79.7 Fibromyalgia (principal); M18.0 Bilateral primary osteoarthritis of first carpometacarpal joints
CPT/HCPCS: 20600; 99214

== ENCOUNTER → 2024-09-18 09:35 | Outpatient (BNVA) | payer OTHER, SELFPAY | PROVIDERS: PCP Internal Medicine; Visit Provider Student in an Organized Health Care Education/Training Program | DX: M18.0 Bilateral primary osteoarthritis of first carpometacarpal joints (principal); M15.9 Polyosteoarthritis, unspecified; M79.7 Fibromyalgia; G89.4 Chronic pain syndrome | CPT/HCPCS: 20600; 99212; J2003; J3300 ==

== ENCOUNTER → 2024-09-24 14:46 | Outpatient (REF) | payer OTHER, SELFPAY ==
--- NOTE | 2024-09-24 14:48 | HM_ITS ---
Conclusion: 1. Patient was monitored for total period of 2 days and 20 hours 2. Baseline was normal sinus rhythm with average heart of 81 beats per minute 3. No significant pauses noted 4. Rare PACs noted 5. Patient marked the counter 4 times with various symptoms including fatigue, shortness of breath, palpitations correlating with sinus rhythm MTDD
== END ==
LOC: HO.CARD 14:46
PROVIDERS: PCP Internal Medicine
DX: R00.2 Palpitations (principal)
CPT/HCPCS: 93242

== ENCOUNTER → 2024-09-24 14:48 | Outpatient (BNV) | payer OTHER, SELFPAY | PROVIDERS: PCP Internal Medicine; Visit Provider Internal Medicine Cardiovascular Disease | DX: I49.1 Atrial premature depolarization (principal) | CPT/HCPCS: 93244 ==

== ENCOUNTER 2024-10-30 08:47 | Outpatient (AMB) | payer OTHER, SELFPAY ==
[2024-10-30 08:50] VITALS: BP 126/74; PULSE 74; O2SAT 100; BMI 24.5
--- NOTE | 2024-10-30 08:50 | A.OFFVIS_ITS ---
Vital Signs 10/30/24 08:50 Height 5 ft Weight 125 lb 10.616 oz BMI 24.5 BP 126/74 Blood Pressure Location Lt brachial Position Sitting Pulse 74 Pulse Source Pulse Oximeter Pulse Oximetry (%) 100 Oxygen Delivery Method Room Air Intake Visit Reasons: Obstructive sleep apnea Accompanied by: Self / Same As Patient Allergies naproxen Allergy (Intermediate, Verified 10/30/24 08:53) abdominal pain ibuprofen (From Motrin) Adverse Reaction (Mild, Verified 10/30/24 08:53) stomach pain HPI Comments Details: The patient is a 73-year-old woman who apparently was in usual state health until back in beginning of the year she was evaluated at an outside hospital. There was a question of pulmonary emboli she ended up undergoing for CTA. The CTA demonstrated apparently some emphysema. Although, I could not find the actual report. Clinically, however the patient has been doing well denies any significant shortness of breath denies any significant coughing. She was a smoker but she quit many years ago. On further questioning she states that her mother also of emphysema although she was not a nonsmoker. She also had another sibling that develop significant emphysema as well. Therefore we did do a full 1 antitrypsin deficiency. Testing today. Should patient will also need PFTs. Clinically patient is doing well she that she does not need any inhaler therapy at this time. Her major complaint is really TMJ. She is having some discomfort on the right TMJ area. Her still open up her mouth to clench her teeth and touch the area. I did print her out some exercises for that. If the patient is no better she should follow-up with her primary care doctor regarding that issue. 12/06/2022 the patient is here for a pulmonary follow-up visit. She still complains of dyspnea on exertion. Sometimes she feels that she cannot take a deep breath in. The patient did have pulmonary function studies that I personally reviewed with her. 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 Also decreased diffusing capacity. Will go ahead and request a chest x-ray. If the x-ray is abnormal she is going to need additional testing such as a CT scan. She has all sorts of elements. The patient also complains of difficulty moving her right hand because numbness of her thumb area and pain as well. She has a hard time holding on to a cough because of the discomfort. She has been having this for now for several weeks. The patient is scheduled to see a automotive metalsmith and early next year. In the meantime I do believe that because of the limitations will be reasonable for her to see orthopedic surgery for the right hand specially since his is limiting her ability to perform her activities of daily living. 02/25/2023 the patient is here for pulmonary follow-up visit. The patient is complaining of worsening shortness breath specially at nighttime. She states that sometimes is pretty significant. Has a hard time sleeping because of it. Sometimes she wakes up from a sound sleep. Moderate severity. She was given levo albuterol solution for the nebulizer and this does help her. She also has a rescue inhaler. The patient did have PFTs back in October and at that point she did have a significant reversible obstruction consistent with asthma. Therefore, placed on a maintenance inhaler Breo 200. She can uses once a day and she should rinse her mouth. I did teach how to use it. The patient also is having issues at nighttime when she wakes up with shortness of breath. Indeed she does have daytime drowsiness with an elevated Horsham score of 11/24. In view of her ongoing symptoms doing a home sleep study will be also important to rule out underlying sleep apnea. I did review her chest x-ray that she had in the fall 2022 demonstrating some minimal atelectasis. Otherwise no active lung disease appreciated. 06/20/2023 the patient is here for pulmonary follow-up visit. Overall the patient has been doing well. She continues have daytime drowsiness. Her Horsham score still elevated 9/24. She did have sleep study that was very reassuring. No evidence of any sleep apnea and no evidence of any hypoxia. The patient has been concerned about lower extremity edema. She does have some liver cirrhosis. Liver functions are normal. I did reassure her. Her breathing is okay. She does continue to use the Breo daily. The patient is also complaining of episodic chest discomfort. She describes like a pressure sensation in the substernal area. Ehko-lu-kgimxjhe severity. Right now she does not have it. She has not seen Cardiology. I did request she get an EKG at this time start taking a baby aspirin. Will have her referred to Cardiology so she can be evaluated from a cardiac standpoint. The patient also should use her rescue inhaler she feels that sensation. 12/26/2023 the patient is here for a pulmonary follow-up visit. Overall the patient has been still complaining of similar symptoms. Can not daytime drowsiness fatigue. Her Horsham score is elevated 11/24. She did have a sleep study although was not helpful because she had a hard time with the study and she felt like the cannula was coming her nose. In view of her significant daytime drowsiness and her comorbidities will go ahead and request an in-lab sleep study this time. She has been evaluated from a cardiac standpoint. She did have a CTA of the coronary arteries demonstrating some mild CAD. She will follow-up with cardiology soon. In the meantime she continues have significant musculoskeletal discomfort. Could be fibromyalgia could be some arthritis. She found to have some lesion fingers in the question of psoriasis did come up. At this point the patient needs to be seen by Rheumatology as she may have likely a more systemic manifestation of a inflammatory musculoskeletal disease. In the meantime for respiratory symptoms will try Daliresp to try to help her decrease inflammation of the airways her chronic bronchitis and also indeed may have some affect with inflammatory disease since it is a PD4 inhibitor. 04/26/2024 the patient is here for a pulmonary follow-up visit. She continues to have significant amount of discomfort. Multiple joints. She does have a rheumatology appointment coming up soon. She did try the PD for inhibitor. Does not seem to be of any help. She also has difficulty sleeping and also daytime drowsiness. Horsham score is elevated 11/24. She did have a in-lab sleep study scheduled but not clear if she did not have the information. Will going to have to have her call to reschedule it. Her breathing is stable. She did have a CT scan of the chest which is reassuring. It was personally by me. Pulmonary nodules have stable and actually 1 of the new nodular densities resolved. Therefore will follow-up the nodules in a year. 10/30/2024 the patient is here for pulmonary follow-up visit. She continues have some discomfort. Overall does not feel well feels tired and not sleeping well. The patient was supposed to have an in-lab sleep study but she did not want to go because it was not should could be. She rather do it elsewhere. She continues to have an elevated Horsham score of 11/24. The patient continues to be on her respiratory inhalers that appeared to be effective for her. Although needs to have a rescue inhaler available. I will make sure to have all those inhalers available to her. The patient is wondering about allergies. She has rugs at home and they appeared to be significantly old and is concerned about potential exposures. Will go ahead and check allergy testing at this time. Will follow-up in 6-8 months if she has any issues prior to this she will call for an earlier assessment. [facility] Medical History (Updated 10/30/24 @ 20:24 by Bear Rodriguez MD) Allergies Fibromyalgia Sacroiliitis Physical exam Chest pain Blurry vision Abnormal chest x-ray Pre-op examination Emphysema of lung Thoracic back pain Muscle spasm Back pain Chronic restrictive lung disease Temporomandibular joint (TMJ) pain Anemia Osteopenia Postmenopausal Obese Chronic pain syndrome Hypovitaminosis D Depression with anxiety Surgical History H/O colonoscopy S/P FARRAH-BSO (total abdominal hysterectomy and bilateral salpingo-oophorectomy) Family History Father No problems noted. Mother Emphysema lung Sister Colon cancer Social History Housing: Apartment Alcohol intake: never Patient Tobacco Use Status: Former Tobacco user Tobacco use type: Cigarette e-Cigarette/Vaping Use: Never Used Second Hand Smoke Exposure: No Advance Directives Date on File: 01/12/22 service: No Current occupational status: unemployed Cognitive needs: Yes Hearing needs: No Vision needs: No Review of Systems Const Denies fatigue and Denies fever(s) Eyes Denies change in vision ENT Reports mouth pain Card Denies chest pain, Reports leg edema and Denies dyspnea on exertion Resp Reports cough, Denies dyspnea on exertion and Denies wheezing GI Denies abdominal pain Musc Reports as per HPI, Reports myalgias, Reports arthralgias, Reports limited range of motion, Reports numbness, Reports stiffness and Reports tingling Skin/Breast Denies rash Neuro Reports no additional complaints, Reports numbness and Reports tingling Endo Denies fatigue Mateusz/Lymph Denies lymphadenopathy Aller/Immun Denies wheezing Physical Exam Vital Signs: Last Vital Signs Pulse 74 10/30/24 08:50 BP 126/74 10/30/24 08:50 Pulse Ox 100 10/30/24 08:50 Oxygen Delivery Method Room Air 10/30/24 08:50 BMI result Body Mass Index 24.5 Const General: cooperative HEENT Head: Yes atraumatic Neck Neck: Yes supple Chest Chest palpation & inspection: normal inspection of the chest Resp Effort & Inspection: normal respiratory effort Auscultation: clear to auscultation bilaterally Cardio Rate: regular rate Rhythm: regular rhythm Heart sounds: S1 normal heart sound present and S2 normal heart sound present GI Palpation (GI): Soft to palpation Skin General skin exam: no rashes or lesions noted Extrem General: Yes no clubbing, cyanosis or edema Assessment & Plan Assessment & Plan (1) Emphysema of lung: Code(s): J43.9 - Emphysema, unspecified Category: Medical Qualifiers: Emphysema type: centrilobular Qualified Code(s): J43.2 - Centrilobular emphysema (2) Chronic restrictive lung disease: Code(s): J98.4 - Other disorders of lung Category: Medical (3) Chest pain: Code(s): R07.9 - Chest pain, unspecified Category: Medical Qualifiers: Chest pain type: unspecified Qualified Code(s): R07.9 - Chest pain, unspecified (4) MULUGETA (obstructive sleep apnea): Code(s): G47.33 - Obstructive sleep apnea (adult) (pediatric) Category: Medical (5) Psoriasis and similar disorder: Comment: ? psoriatic patches on elbows and fingertips Code(s): L40.9 - Psoriasis, unspecified Category: Medical (6) Allergies: Code(s): T78.40XA - Allergy, unspecified, initial encounter Category: Medical Qualifiers: Encounter type: initial encounter Qualified Code(s): T78.40XA - Allergy, unspecified, initial encounter Plan stop Breo start Symbicort JCARLOS as needed DAliresp 500mcg daily bloodwork, allergy testing F/U 6-8 months Orders: Orders Resp Allergy Profile Region I Today R91.1 - Solitary pulmonary nodule, T78.40XA - Allergy, unspecified, initial encounter Immunoglobulin E Today T78.40XA - Allergy, unspecified, initial encounter Complete Blood Count Auto Diff Today T78.40XA - Allergy, unspecified, initial encounter Medications: New budesonide-formoterol 160-4.5 mcg/actuation (Symbicort) 2 puffs inhalation BID 10.2 grams 11RF 30 days J44.89 - Other specified chronic obstructive pulmonary disease ondansetron 4 mg PO Q8H 90 tabs 0RF 30 days Discontinued 2 atorvastatin (Lipitor) Discontinued Reason: Patient Refused 20 mg PO DAILY 90 tabs 3RF Coding Level of Care Code Est Pt Level 4 (56441) Complex EM visit Add On G2211 Diagnoses Centrilobular emphysema J43.2 Emphysema type: centrilobular Chronic restrictive lung disease J98.4 Chest pain, unspecified type R07.9 Chest pain type: unspecified MULUGETA (obstructive sleep apnea) G47.33 Psoriasis and similar disorder L40.9 Allergy, initial encounter T78.40XA Encounter type: initial encounter Time Spent (min) 16
== END 2024-10-30 09:14 | disposition home or self-care (01) ==
LOC: HO.HPS 08:47
PROVIDERS: PCP Internal Medicine; Visit Provider Hospitalist
DX: J43.2 Centrilobular emphysema (principal); J98.4 Other disorders of lung; R07.9 Chest pain, unspecified; G47.33 Obstructive sleep apnea (adult) (pediatric); L40.9 Psoriasis, unspecified; T78.40XA Allergy, unspecified, initial encounter
CPT/HCPCS: 99214; G2211

== ENCOUNTER 2024-10-30 08:47 | Outpatient (REF) | payer OTHER, SELFPAY ==
[2024-10-30 09:40] LABS: MANUAL DIFF FLAG NO
[2024-10-30 10:42] LABS: Hematocrit 39.1 % (37.0-47.0); Hemoglobin 12.1 g/dl (12.0-16.0); Imm Gran Abs Auto 0.01 X10*3/uL (0.00-0.03); Imm Gran Pct Auto 0.1 % (0.0-0.4); Lymphocytes Absolute Auto 1.9 X10*3/uL (1.2-4.9); Mean Corpuscular HGB Conc 30.9 g/dl (31.0-35.0); Mean Corpuscular Hemoglobin 26.5 pg (27.0-33.0); Mean Corpuscular Volume 85.6 fL (80.0-98.0); NRBC Abs Auto 0.000 X10*3/uL (0.0-0.012); NRBC Pct Auto 0.0 /100WBC (0.0-0.2); Platelet Count 424 X10*3/uL (160-400); Red Blood Count 4.57 X10*6/uL (4.20-5.50); White Blood Count 6.7 X10*3/uL (4.8-10.8)
--- OUTSIDE RECORDS SUMMARY | 2024-10-30 11:51 | XMS_ITS ---
Author Name Chika Allen NP Reid Address [address] [place] [address] Phone [phone] [facility] Team Providers Care Continuous Improvement Intern Name Role Phone Chika Allen Unavailable [phone] Colette Esteves Unavailable [phone] Unavailable Unavailable Unavailable SUSAN IBARRA Unavailable [phone] Unavailable Unavailable [phone] Reason for Referral Not Available Allergies, adverse [...] on days 2-5 2023-08-24 2024-03-04 Polymyxin B-Trimethoprim 34175-9.1 UNIT/ML-% Solution Ophthalmic 1 drop ophthalmically into [...] MOUTH TWICE DAILY 2024-04-10 No Data Available Dwpqzdql-Caczumruu-RP 3.5-45049-4 Suspension SHAKE LIQUID AND INSTILL 4 DROPS [...] mg Cap TAKE 1 CAPSULE BY M OUTH TWICE DAILY 2024-07-03 No Data Available OYSTER SHELL CALCIUM 250MG W /D TABS TAKE 1 TABLET BY MOUTH TWICE DAILY 2024-08-29 No Data Available Amoxicillin-Pot Clavulanate 875/125 mg Tab Take 1 tablet PO twice daily for 7 days 2024-10-16 No Data Available Atorvastatin Calcium 20 mg Tab TAKE 1 TA BLET BY MOUTH DAILY 2024-09-14 No Data Available DULoxetine 30 mg Cap delayed rel TAKE 1 CAPSULE BY MOUTH EVERY NIGHT 2024-09-18 No Data Available Problem List Problem Status Onset Date Resolved Date Synopsis Chronic prescription benzodiazepine use Active 2021-12-30 N/A Has been taki ng clonazepam for 10+ yearsDiscussed risk of sedation UTI (urinary tract infection)Nausea Resolved 2023-10-11 2024-04-26 10/11/2023eRx N ew Tylenol Extra Strength 500 mg Tab 2 tablet orally Q6hrs prn pain/fever #30 tablet ITm9tSp New Ondansetron 8 mg Tab Disintegrating 1 tablet orally every 8 hours as needed nausea #30 tablet QVt6fYm New Macrobid 100 mg Cap Take 1 tablet PO twice daily for 7 days. #14 tablet RFx10/19/23: Improved per pt, denies ss today. 11/20/23:Member describing dysuria and recurrent UTI symptomsStart bactrim DS BID x 5 daysEncouraged increased fluid intake, especially waterAPP f/u is scheduled for 11/21 regarding back symptoms, but can call back sooner for any new or worsened cyjiatwb46/8/24: Symptoms began 2 days ago on Tuesday. [...] in each nostril twice daily #1 each GCm1Ftzkcf Promethazine-DM 6.25/15 mg/5ML Syrup 5 ml orally every 4-6 hours as needed for cough #200 ml QLc3Mbb use cool mist vaporizer/humidifier next to bed [...] + days. Inhaler puffer 4/ day for jzpmnfsqgoakumu67/21/2023Ve ry difficult to assess. Not a relieble [...] Rx: Breo Elipta, Albuterol HFA PRN, Levalbuterol [facility] pulmonology follow up04/26/24: Saw her [...] 45 tabs. Will refill rx, sent to [facility].04/26/24: Tizanidine helps more than Flexeril. I last filled on 03/06/24 for 45 tabs, member requesting refill today, tolerating. Dental abscess and pain Active 2024-08-03 N/A 0 08/03/24: Rx: Amoxicillin-Pot Clavulanate 875/125 mg Tab-Take 1 tablet PO twice daily for 7 days. (also treating URI) Advised to take Tylenol or ibuprofen. Rinse mouth with warm salt water. Follow up with a Dentist. Contact [facility] 06/09 for any new, worsening or continued symptoms. URI (upper respiratory infection) Active 2024-08-03 N/A 08/03/24: Rx: Amoxicillin-Pot Clavulanate 875/125 mg Tab-Take 1 tablet PO twice daily for 7 days (also treating dental abscess) Albuterol inhaler and nebs every 2 hrs as needed. Zyrtec (cetirizine) or Claritin (loratadine) or Benadryl daily. Drink hot tea with honey and lemon. Contact [facility] 06/09 for any new, worsening or continued symptoms. Constipation Active 2024-08-03 N/A 08/03/24: Rx : Docusate Sodium 100 mg Cap-1 capsule orally daily. Advised to increase fluids and fiber intake (eat prunes or prune juice daily). Take OTC MiraLAX, Senna-S or Dulcolax, Dulcolax suppository. Contact [facility] 06/09 for any new, worsening or continued symptoms. Left acute suppurative otitis media Active 2024-10-16 N/A Advised Tylenol for pain. Increase clear fluids and rest. Do not stick anything in ears. Augmentin 875 BID x 7 days. Ceterizine 10 mg daily RF. CB is available 06/09 for acute needs. Seasonal allergies Active 2024-10-16 N/A Avoid triggers. Use clean air filters. RF Ceterizine. CB is available 06/09 for acute needs. Encounters Encounters Type Facility Date of Service Diagnosis/Co mplaint New patient,40-59min; chronic exacerbation, 2 stable chronic or 1 acute illness add add modifier 95 for video (do not use for phone, instead use 16927-25) [facility], ([place] Opioid dependence, uncomplicatedLong term (current) use of opiate analgesicSedative, hypnotic or anxiolytic dependence, uncomplicatedDorsalgia, unspecifiedSciatica, unspecified sideSacroiliitis, not elsewhere classified New patient,40-59min; chronic exacerbation, 2 stable chronic or 1 acute illness add add modifier 95 for video (do not use for phone, instead use 51238-62) [facility], ([place] 12[place]30/20[place] New patient,40-59min; chronic exacerbation, 2 stable chronic or 1 acute illness add add modifier 95 for video (do not use for phone, instead use 14945-38) [facility], ([place]) 12/30/20[place] New patient,40-59min; chronic exacerbation, 2 stable chronic or 1 acute illness add add modifier 95 for video (do not use for phone, instead use 82539-67) [facility] New patient,40-59min; chronic exacerbation, 2 stable chronic or 1 acute illness add add modifier 95 for video (do not use for phone, instead use 14441-30) [facility] New patient,40-59min; chronic exacerbation, 2 stable chronic or 1 acute illness add add modifier 95 for video (do not use for phone, instead use 60005-85) [facility] New patient,40-59min; chronic exacerbation, 2 stable chronic or 1 acute illness add add modifier 95 for video (do not use for phone, instead use 63034-19) [facility] New patient,40-59min; chronic exacerbation, 2 stable chronic or 1 acute illness add add modifier 95 for video (do not use for phone, instead use 31779-12) [facility] New patient,40-59min; chronic exacerbation, 2 stable chronic or 1 acute illness add add modifier 95 for video (do not use for phone, instead use 35564-03) [facility]/2021 Estab. patient 30-39min; chronic exacerbation, 2 stable chronic or 1 acute illness add add modifier 95 for video, (do not use for phone, instead use 22884-37) [facility] 01/26/2023 Opioid dependence, uncomplicatedLong term (current) use of opiate analgesicSedative, hypnotic or anxiolytic dependence, uncomplicatedDorsalgia, unspecifiedSciatica, unspecified sideSacroiliitis, not elsewhere classifiedChronic obstructive pulmonary disease, unspecifiedCough, unspecified Estab. patient 30-39min; chronic exacerbation, 2 stable chronic or 1 acute illness add add modifier 95 for video, (do not use for phone, instead use 49726-77) [facility]26/2023 Estab. patient 30-39min; chronic exacerbation, 2 stable chronic or 1 acute illness add add modifier 95 for video, (do not use for phone, instead use 81722-53) [facility] 01[place]26/2023 Estab. patient 30-39min; chronic exacerbation, 2 stable chronic or 1 acute illness add add modifier 95 for video, (do not use for phone, instead use 99296-63) [facility] 01/26/2023 Estab. patient 30-39min; chronic exacerbation, 2 stable chronic or 1 acute illness add add modifier 95 for video, (do not use for phone, instead use 43689-93) [facility] 01[place]26/2023 Estab. patient 30-39min; chronic exacerbation, 2 stable chronic or 1 acute illness add add modifier 95 for video, (do not use for phone, instead use 97584-23) [facility] 01/26/2023 Estab. patient 30-39min; chronic exacerbation, 2 stable chronic or 1 acute illness add add modifier 95 for video, (do not use for phone, instead use 18893-72) [facility] 01/26/2023 Estab. patient 30-39min; chronic exacerbation, 2 stable chronic or 1 acute illness add add modifier 95 for video, (do not use for phone, instead use 91053-49) [facility] 01/26/2023 Estab. patient 30-39min; chronic exacerbation, 2 stable chronic or 1 acute illness add add modifier 95 for video, (do not use for phone, instead use 72005-39) [facility] 01/26/2023 Estab. patient 30-39min; chronic exacerbation, 2 stable chronic or 1 acute illness add add modifier 95 for video, (do not use for phone, instead use 58092-82) [facility] 01/26/2023 Estab. patient 30-39min; chronic exacerbation, 2 stable chronic or 1 acute illness add add modifier 95 for video, (do not use for phone, instead use 98542-42) [facility] 02/03/2023 Dorsalgia, unspecifiedSciati ca, unspecified sideSacroiliitis, not elsewhere classifiedChronic obstructive pulmonary disease, unspecifiedLong term (current) use of opiate analgesicCough, unspecifiedOther mcfp (current) drug therapy Estab. patient 30-39min; chronic exacerbation, 2 stable chronic or 1 acute illness add add modifier 95 for video, (do not use for phone, instead use 61340-21) [facility] 02[place]03/2023 Estab. patient 30-39min; chronic exacerbation, 2 stable chronic or 1 acute illness add add modifier 95 for video, (do not use for phone, instead use 84098-22) [facility] 02/03/2023 Estab. patient 30-39min; chronic exacerbation, 2 stable chronic or 1 acute illness add add modifier 95 for video, (do not use for phone, instead use 92374-62) [facility] 02/03/2023 Estab. patient 30-39min; chronic exacerbation, 2 stable chronic or 1 acute illness add add modifier 95 for video, (do not use for phone, instead use 44833-87) [facility] 02/03/2023 Estab. patient 30-39min; chronic exacerbation, 2 stable chronic or 1 acute illness add add modifier 95 for video, (do not use for phone, instead use 01223-55) [facility] 02/03/2023 Estab. patient 30-39min; chronic exacerbation, 2 stable chronic or 1 acute illness add add modifier 95 for video, (do not use for phone, instead use 21208-12) [facility] [place] 02/03/2023 Estab. patient 30-39min; chronic exacerbation, 2 stable chronic or 1 acute illness add add modifier 95 for video, (do not use for phone, instead use 98462-94) [facility] 02/03/2023 No Data Available [facility] 02/10/2023 Cough, unspecifiedSacroiliit is, not elsewhere classifiedDorsalgia, unspecifiedSciatica, unspecified side No Data Available [facility] 02[place]10/2023 No Data Available [facility]/10[place]2023 No Data Available [facility] 08[place]/2023 Dorsalgia, unspecifiedOther chronic painSacroiliitis, not elsewhere classifiedOther muscle spasmOpioid use, unspecified, uncomplicated No Data Available [facility] 08/10/2023 No Data Available [facility] 08/24/2023 Acute upper respiratory infection, unspecified No Data Available [facility] 08/24/2023 No Data Available [facility] 08[place]24/2023 No Data Available [facility] 09[place]01/2023 Acute upper respiratory infection, unspecifiedOther problems related to medical facilities and other health care No Data Available [facility] 10/11/2023 Urinary tract infection, sit e not specifiedNausea No Data Available [facility] 10/11/2023 No Data Available [facility] 10[place]11/2023 Estab. patient 30-39min; chronic exacerbation, 2 stable chronic or 1 acute illness add add modifier 95 for video, (do not use for phone, instead use 81459-90) [facility] 10[place]19/2023 Dorsalgia, unspecifiedOther chronic painSacroiliitis, not elsewhere classifiedOther termite control servicer (current) drug therapyOther muscle spasmOpioid use, unspecified, uncomplicatedChronic obstructive pulmonary disease, unspecifiedOther problems related to medical facilities and other health careUrinary tract infection, site not specifiedNauseaPersonal history of nicotine dependence Estab. patient 30-39min; chronic exacerbation, 2 stable chronic or 1 acute illness add add modifier 95 for video, (do not use for phone, instead use 56655-38) [facility] 10[place]19/2023 Estab. patient 30-39min; chronic exacerbation, 2 stable chronic or 1 acute illness add add modifier 95 for video, (do not use for phone, instead use 74510-22) [facility] 10[place]19/2023 Estab. patient 30-39min; chronic exacerbation, 2 stable chronic or 1 acute illness add add modifier 95 for video, (do not use for phone, instead use 82223-85) [facility] 10[place]19/2023 Estab. patient 30-39min; chronic exacerbation, 2 stable chronic or 1 acute illness add add modifier 95 for video, (do not use for phone, instead use 09847-15) [facility] 10/19/2023 Estab. patient 30-39min; chronic exacerbation, 2 stable chronic or 1 acute illness add add modifier 95 for video, (do not use for phone, instead use 68460-60) [facility] 10[place]19/2023 Estab. patient 30-39min; chronic exacerbation, 2 stable chronic or 1 acute illness add add modifier 95 for video, (do not use for phone, instead use 69070-07) [facility] 10[place]19/2023 Estab. patient 30-39min; chronic exacerbation, 2 stable chronic or 1 acute illness add add modifier 95 for video, (do not use for phone, instead use 98294-57) [facility] 10[place]19/2023 Estab. patient 30-39min; chronic exacerbation, 2 stable chronic or 1 acute illness add add modifier 95 for video, (do not use for phone, instead use 84281-49) [facility] 10[place]19/2023 Estab. patient 30-39min; chronic exacerbation, 2 stable chronic or 1 acute illness add add modifier 95 for video, (do not use for phone, instead use 60192-38) [facility] 10/19/2023 No Data Available [facility]/2023 Sacroiliitis, not elsewhere classifiedDorsalgia, unspecifiedOther chronic painOther muscle spasmOpioid use, unspecified, uncomplicatedUrinary tract infection, site not specifiedNausea No Data Available [facility] 11[place]20/2023 No Data Available [facility]/2023 No Data Available [facility] 11/[place]/2023 No Data Available [facility]/2023 Dorsalgia, unspecifiedOther chronic painSacroiliitis, not elsewhere classifiedOther muscle spasmOpioid use, unspecified, uncomplicatedUrinary tract infection, site not specifiedNauseaOther problems related to medical facilities and other health care No Data Available [facility] 11/22/2023 No Data Available [facility] 01/09/2024 Dorsalgia, unspecifiedOther problems related to medical facilities and other health careOther chronic painSacroiliitis, not elsewhere classifiedOther muscle spasmOpioid use, unspecified, uncomplicated No Data Available [facility] [place] 01/09/2024 Estab. patient 10-29min; 1 minor problem; add add modifier 95 for video, modifier 93 for phone [facility] 02/20/2024 Chronic obstructive pulmonar y disease, unspecifiedDorsalgia, unspecifiedOther chronic painSacroiliitis, not elsewhere classifiedOther muscle spasmOpioid use, unspecified, uncomplicatedOther problems related to medical facilities and other health care Estab. patient 10-29min; 1 minor problem; add add modifier 95 for video, modifier 93 for phone [facility] [place] 02/20/2024 Estab. patient 10-29min; 1 minor problem; add add modifier 95 for video, modifier 93 for phone [facility] [place] 02/20/2024 Estab. patient 10-29min; 1 minor problem; add add modifier 95 for video, modifier 93 for phone [facility] [place] 03/04/2024 Acute upper respiratory infection, unspecified Estab. patient 20-29min; 1 stable chronic or 2 minor; add add modifier 95 for video, modifier 93 for phone [facility] [place] 04/26/2024 Dorsalgia, unspecifiedOther chronic painSacroiliitis, not elsewhere classifiedOther muscle spasmOpioid use, unspecified, uncomplicatedOther termite control servicer (current) drug therapyChronic obstructive pulmonary disease, unspecifiedAcute [...] [facility] Estab. patient 10-29min; 1 minor problem; add add modifier 95 for video, modifier 93 for phone [facility] [place] 08/03/2024 Periapical abscess without sinusOther specified disorders of teeth and supporting structuresAcute upper respiratory infection, unspecifiedConstipation, unspecified Estab. patient 10-29min; 1 minor problem; add add modifier 95 for video, modifier 93 for phone [facility] [place] 09/02/2024 Acute upper respiratory infection, unspecified Estab. patient 10-29min; 1 minor problem; add add modifier 95 for video, modifier 93 for phone [facility] [place] 09/02/2024 Estab. patient 10-29min; 1 minor problem; add add modifier 95 for video, modifier 93 for phone [facility] [place] 09/02/2024 Estab. patient 10-29min; 1 minor problem; add add modifier 95 for video, modifier 93 for phone [facility] [place] 09/02/2024 Estab. patient 10-29min; 1 minor problem; add add modifier 95 for video, modifier 93 for phone [facility] [place] 10/16/2024 Acute suppr otitis media w/o spon rupt ear drum, left earOther seasonal allergic rhinitis Vital Signs Date of Collection Vitals 2021-12-30 [...] - 105.0 /minBody Temperature - 36.11 Disha 2024-10-16 15:03:15 BP Diastolic - 92.0 mm[Hg]BP Systolic - 135.0 mm[Hg]Heart Rate - 99.0 /minBody Temperature - 36.33 Disha Social History Social History Social History Observation Description Effec tive Time Current Smoking Status Former smoker 2024-10-15 8 Sex Female History of Procedures Procedures Service Procedure code Service date Servicing provider Phone# New patient,40-59min; chronic exacerbation, 2 stable chronic or 1 acute illness add add modifier 95 for video (do not use for phone, instead use 92227-26) [id number] 2021-12-30 No Data Available No Data Availa [...] (do not use for phone, instead use 82156-66) [id number] 2023-01-26 No Data Available No Data Availa [...] (do not use for phone, instead use 72242-17) [id number] 2023-02-03 No Data Available No Data Availa [...] No Data Avail able No Data Available [id number] 2023-02-10 No Data Available No Data Available Pain Assessment - Pain Documented on a Pain Scale (1125F) 1125F 2023-02-10 No Data Available No Data Cecilia ilable Medication List Documented (1159F) 1159F 2023-02-10 No Data Available No Data Cecilia ilable No Data Available [id number] 2023-08-10 No Data Available No Data Available Medication List Documented (1159F) 1159F 2023-08-10 No Data Available No Data Cecilia ilable No Data Available [id number] 2023-08-24 No Data Available No Data Available SBP < 130 (3074F) 3074F 2023-08-24 No Data Available No Data Available DBP 80-89 (3079F) 3079F 2023-08-24 No Data Available No Data Available No Data Available [id number] 2023-09-01 No Data Available No Data Available No Data Available [id number] 2023-10-11 No Data Available No Data Available SBP >= 140 3077F 2023-10-11 No Data Available No Data Available DBP >=90 3080F 2023-10-11 No Data Available No Data Available Estab. patient 30-39min; chronic exacerbation, 2 stable chronic or 1 acute illness add add modifier 95 for video, (do not use for phone, instead use 73353-92) 00338 2023-10-19 No Data Available No Data Availa [...] No Data Availa ble No Data Available [id number] 2023-11-20 No Data Available No Data Available Medication List Documented (1159F) 1159F 2023-11-20 No Data Available No Data Cecilia ilable SBP < 130 (3074F) 3074F 2023-11-20 No Data Available No Data Available DBP 80-89 (3079F) 3079F 2023-11-20 No Data Available No Data Available No Data Available 12087 2023-11-22 No Data Available No Data Available Medication List Documented (1159F) 1159F 2023-11-22 No Data Available No Data Cecilia ilable No Data Available [id number] 2024-01-09 No Data Available No Data Available Medication List Documented (1159F) 1159F 2024-01-09 No Data Available No Data Cecilia ilable Estab. patient 10-29min; 1 minor problem; add add modifier 95 for video, modifier 93 for phone [id number] 2024-02-20 No Data Available No Data Availa ble Medication List Documented (1159F) 1159F 2024-02-20 No Data Available No Data Cecilia ilable BMI obtained (3008F) 3008F 2024-02-20 No Data Availab le No Data Available Estab. patient 10-29min; 1 minor problem; add add modifier 95 for video, modifier 93 for phone [id number] 2024-03-04 No Data Available No Data Availa ble Estab. patient 20-29min; 1 stable chronic or 2 minor; add add modifier 95 for video, modifier 93 for phone [id number] 2024-04-26 No Data Available No Data Availa [...] 95 for video, modifier 93 for phone [id number] 2024-08-03 No Data Available No Data Availa ble Estab. patient 10-29min; 1 minor problem; add add modifier 95 for video, modifier 93 for phone [id number] 2024-09-02 No Data Available No Data Availa ble Pain Assessment - Pain Documented on a Pain Scale (1125F) 1125F 2024-09-02 No Data Available No Data Cecilia ilable SBP 130-139 (3075F) 3075F 2024-09-02 No Data Availabl e No Data Available DBP <80 (3078F) 3078F 2024-09-02 No Data Available No Data Available Estab. patient 10-29min; 1 minor problem; add add modifier 95 for video, modifier 93 for phone [id number] 2024-10-16 No Data Available No Data Availa ble [...] orally BID PRN muscle spasms/pain #30 tablet [id number] New Tylenol Extra Strength 500 mg Tab 2 tablet orally q 6hrs prn pain/fever #30 tablet RPt2sXv New Diclofenac Sodium 1 % Gel 4 grams topically to affected area 4 times per day PRN #100 gram SYr0bUv New Lidocaine 5 % Oint apply thin film to affected area TID prn pain #50 gram IZv3vPm New predniSONE 20 mg Tab Take 2 tablets twice daily for 3 days, 1 tablet twice daily for 2 days, and 1 tablet daily for 2 days. #18 tab [id number] plan of care and conservative measures for [...] call CBContinue to see PCP. Follow-up with [facility] as needed for any acute or disease education needs that may arise 06/09.UTI (urinary tract infection)Pkvtao7210/11/2023eRx New Tylenol Extra Strength 500 mg Tab 2 tablet orally Q6hrs prn pain/fever #30 tablet OJj5vFz New Ondansetron 8 mg Tab Disintegrating 1 tablet orally every 8 hours as needed nausea #30 tablet UAw4jHl New Macrobid 100 mg Cap Take 1 [...] infection)Constipation 2024-09-02 14:33:54 Viral URI with cough 2024-10-16 15:03:15 [facility] f/u 10/18/24 at 9:30Follow up plan for acute symptoms: CB is available 06/09 for acute needs.Left acute suppurative otitis mediaSeasonal allergies Plan of Care Date of Service Plans [...] and has for 1+ yearsSafetyRisk of sedationSending Narckelbys been taking clonazepam for 10+ yearssafetyrisk of sedationFor many years.Now at pain clinic in [facility], began seeing them on 12/07.On TramadolTizanindineGabapentinClonazepamTramadolTizanindineGabapentinClonazepa [...] and has for 1+ yearsSafetyRisk of sedationSending Narckelbys been taking clonazepam for 10+ yearssafetyrisk of sedationFor many years.Now at pain clinic in [facility], began seeing them on 12/07.On TramadolTizanindineGabapentinClonazepamTramadolTizanindineGabapentinClonazepa [...] Documented (1125F)Continue to see PCP. Follow-up with [facility] as needed for any acute or disease education needs that may arise.Takes Tramadol 50 mg BID and has for 1+ yearsSafetyRisk of sedationSending Abiel been taking clonazepam for 10+ yearssafetyrisk of sedationFor many years.Now at pain clinic in [facility], began seeing them on 12/07.On LilavrosLzaittdfzyvUymkrcmbldDojaubftuk33/21/2023ontinues with pain, poor historian, unclear how much pain she is having today, appears to be active but gvnqcxHqxbbgjpMhksfsvomvnOpldnjbigoSimitgnxzv38/21/2023ontinues with pain, pls cont tx as prescribed, [...] + days. Inhaler puffer 4/ day for zmqbhzudgcnwiaa05/21/2023Very difficult to assess. Not a relieble historian, [...] + days. Inhaler puffer 4/ day for xfxmiusqqcuslev97/21/2023Very difficult to assess. Not a relieble historian, [...] inhalers/nebs.We will F/U next week.02/10 stable has fstllzxuStlxvlvsRxqekehoyxmEochimupaiOuimhhpmfw32/21/2023Continues with pain, pls cont tx as prescribed, reports she was told that PT was not viable. Will investigate.02/10 has had this for years, will refer to neurologist, denies any bowel or bladder dysfunctionFor many years.Now at pain clinic in [facility], began seeing them on 12/07.On NtrcheidNskrronvkrvFetxuldsjxBdnnkallvz50/21/2023Continues with pain, poor historian, unclear how much pain she is having today, appears to be active but iqekgk98/28 for many years will refer to neurologist [...] orally BID PRN muscle spasms/pain #30 tablet QSs5sPq New Tylenol Extra Strength 500 mg Tab 2 tablet orally q 6hrs prn pain/fever #30 tablet HLt7gHc New Diclofenac Sodium 1 % Gel 4 grams topically to affected area 4 times per day PRN #100 gram AEa8eKz New Lidocaine 5 % Oint apply thin film to affected area TID prn pain #50 gram SCn3fKn New predniSONE 20 mg Tab Take 2 tablets twice daily for 3 days, 1 tablet twice daily for 2 days, and 1 tablet daily for 2 days. #18 tab VPr9cteqprsd plan of care and conservative measures for [...] low abd pain. Please remember to call [facility] to see PCP. Follow-up with Mare as [...] tablet orally Q6hrs prn pain/fever #30 tablet BWl5mLp New Ondansetron 8 mg Tab Disintegrating 1 tablet orally every 8 hours as needed nausea #30 tablet NDw2pLt New Macrobid 100 mg Cap Take 1 [...] orally BID PRN muscle spasms/pain #30 tablet WKo5iWp New Tylenol Extra Strength 500 mg Tab 2 tablet orally q 6hrs prn pain/fever #30 tablet EKs5bXs New Diclofenac Sodium 1 % Gel 4 grams topically to affected area 4 times per day PRN #100 gram YIv4hKy New Lidocaine 5 % Oint apply thin film to affected area TID prn pain #50 gram ABi7nUn New predniSONE 20 mg Tab Take 2 tablets twice daily for 3 days, 1 tablet twice daily for 2 days, and 1 tablet daily for 2 days. #18 tab HGx9frtfgwrj plan of care and conservative measures for [...] tablet orally Q6hrs prn pain/fever #30 tablet CLd6xDa New Ondansetron 8 mg Tab Disintegrating 1 tablet orally every 8 hours as needed nausea #30 tablet CAd7pHd New Macrobid 100 mg Cap Take 1 [...] orally BID PRN muscle spasms/pain #30 tablet TDt3xBd New Tylenol Extra Strength 500 mg Tab 2 tablet orally q 6hrs prn pain/fever #30 tablet HMn7dRp New Diclofenac Sodium 1 % Gel 4 grams topically to affected area 4 times per day PRN #100 gram BOy7mQn New Lidocaine 5 % Oint apply thin film to affected area TID prn pain #50 gram FCi9iXe New predniSONE 20 mg Tab Take 2 tablets twice daily for 3 days, 1 tablet twice daily for 2 days, and 1 tablet daily for 2 days. #18 tab RLp8smjtjmoe plan of care and conservative measures for [...] tablet orally Q6hrs prn pain/fever #30 tablet GUy3cFh New Ondansetron 8 mg Tab Disintegrating 1 tablet orally every 8 hours as needed nausea #30 tablet NJr6qZl New Macrobid 100 mg Cap Take 1 tablet PO twice daily for 7 days. #14 tablet RFx10/19/23: Improved per pt, denies ss today. 11/20/23:Member describing dysuria and recurrent UTI symptomsStart bactrim DS BID x 5 daysEncouraged increased fluid intake, especially waterAPP f/u is scheduled for 11/21 regarding back symptoms, but can call back sooner for any new or worsened rrokwkic28/8/24: Symptoms began 2 days ago on Tuesday. [...] low abd pain. Please remember to call [facility] to see PCP. Follow-up with Mare as [...] orally BID PRN muscle spasms/pain #30 tablet OAv9rPk New Tylenol Extra Strength 500 mg Tab 2 tablet orally q 6hrs prn pain/fever #30 tablet QUe0hZd New Diclofenac Sodium 1 % Gel 4 grams topically to affected area 4 times per day PRN #100 gram AYp2xZa New Lidocaine 5 % Oint apply thin film to affected area TID prn pain #50 gram FBy2iBt New predniSONE 20 mg Tab Take 2 tablets twice daily for 3 days, 1 tablet twice daily for 2 days, and 1 tablet daily for 2 days. #18 tab GJi8ufqbvncp plan of care and conservative measures for [...] low abd pain. [facility]. Follow-up with [facility] as [...] see PCP or UC if any worsening sxs.9/4/24: Stable on inh/neb, denies worsening pulm ss [...] orally BID PRN muscle spasms/pain #30 tablet INy0nEt New Tylenol Extra Strength 500 mg Tab 2 tablet orally q 6hrs prn pain/fever #30 tablet VJu2kGv New Diclofenac Sodium 1 % Gel 4 grams topically to affected area 4 times per day PRN #100 gram DNl8bLh New Lidocaine 5 % Oint apply thin film to affected area TID prn pain #50 gram CRm7lLv New predniSONE 20 mg Tab Take 2 tablets twice daily for 3 days, 1 tablet twice daily for 2 days, and 1 tablet daily for 2 days. #18 tab YUj9ouxkqtuo plan of care and conservative measures for [...] 45 tabs. Will refill rx, sent to [facility].When member to call: 1. If bp is elevated sbp>150; dbp>90 or symptomatic-h/a, dizziness, cp, sob. 2. if there is a fall 3. if BS >300 or BS<90 or symptomatic; i.e., dizzy, off balance , shaky, general weakness. 4. if UTI symptoms arise-urinary frequency, dysuria, low abd pain. [facility] Follow-up with M[facility] as [...] in each nostril twice daily #1 each GNl2Efnciy Promethazine-DM 6.25/15 mg/5ML Syrup 5 ml orally every 4-6 hours as needed for cough #200 ml ZLf0Oqm use cool mist vaporizer/humidifier next to bed [...] 80-89 ([id number])Continue to see PCP. Follow-up with [facility] as [...] 45 tabs. Will refill rx, sent to [facility].04/26/24: Tizanidine helps more than Flexeril. I last filled on 03/06/24 for 45 tabs, member requesting refill today, tolerating.Has been taking clonazepam for 10+ yearsDiscussed risk of sedationRx: Breo Elipta, Albuterol HFA PRN, Levalbuterol [facility] pulmonology follow up04/26/24: Saw her pulm today, she has URI symptoms. Has prescribed steroids but they do not agree with her stomach.03/04/24- Azelastine 0.1 % Solution Nasal use 2 sprays in each nostril twice daily #1 each EUp4Jecwcf Promethazine-DM 6.25/15 mg/5ML Syrup 5 ml orally every 4-6 hours as needed for cough #200 ml TJn3Dcb use cool mist vaporizer/humidifier next to bed [...] for phoneContinue to see PCP. Follow-up with [facility] as needed for any acute or disease education needs that may arise 06/09.08/03/24: Rx: Amoxicillin-Pot Clavulanate 875/125 mg Tab-Take 1 tablet PO twice daily for 7 days. (also treating URI) Advised to take Tylenol or ibuprofen. Rinse mouth with warm salt water. Follow up with a Dentist. Contact [facility] 06/09 for any new, worsening or continued symptoms.08/03/24: Rx: Amoxicillin-Pot Clavulanate 875/125 mg Tab-Take 1 tablet PO twice daily for 7 days (also treating dental abscess) Albuterol inhaler and nebs every 2 hrs as needed. Zyrtec (cetirizine) or Claritin (loratadine) or Benadryl daily. Drink hot tea with honey and lemon. Contact [facility] 06/09 for any new, worsening or continued symptoms.08/03/24: Rx: Docusate Sodium 100 mg Cap-1 capsule orally daily. Advised to increase fluids and fiber intake (eat prunes or prune juice daily). Take OTC MiraLAX, Senna-S or Dulcolax, Dulcolax suppository. Contact [facility] 06/09 for any new, worsening or continued symptoms. 14:33:54 Televideo 10-29min; 1 minor problem; add add modifier 95 for video, modifier 93 for phoneContinue to see PCP. Follow-up with [facility] as needed for any acute or disease education needs that may arise 06/09.reviewed symptom management. Rest and push fluids. Tylenol prnOndansetron 8 mg Tab Disintegrating 1 tablet orally every 8 hours as needed nausea #20 tablet VEl0Fzoi for worsening symptoms. 15:03:15 Televideo 10-29min; 1 minor problem; add add modifier 95 for video, modifier 93 for phoneContinue to see PCP. Follow-up with [facility] as needed for any acute or disease education needs that may arise 06/09.Advised Tylenol for pain. Increase clear fluids and rest. Do not stick anything in ears. Augmentin 875 BID x 7 days. Ceterizine 10 mg daily RF. CB is available 06/09 for acute needs.Avoid triggers. Use clean air filters. RF Ceterizine. CB is available 06/09 for acute needs. Goals Date Goal 2021-12-30 Remember to 2021-12-30 Call me if 2021-12-30 Keep it up 2023-02-10 continue medications as prescribed 2023-02-10 call if you feel ill , have any questions or concerns 2023-02-10 no new concerns, ebenezer whiteside refer to neurology Health Concerns Date Concern 2024-10-16 Patient/Guardian blas castano to visit via telehealth.Visit completed via:[ ] audio and video; [x] audio only 2024-10-16 Concerns for today's visit: Ear painSummary: Member states for two days she is having L ear pain. She reports L ear is oozing blood and she is also having dizziness. Member reports throat pain and nasal drainage. No fever, N/V/D. She reports CP and SOB are her norm. She is out of Cetirizine. She has tried Tylenol and Tramadol with some relief of arthritis pain.
[2024-11-01 20:23] LABS: Class Alternaria alternata 0; Class Aspergillus fumigatus 0; Class Bermuda Grass 0; Class Birch 0; Class Cat Dander 0; Class Cladosporium herbarum 0; Class Cockroach 0/1; Class Common Ragweed 0; Class Cottonwood 0; Class Derm. pterony 1; Class Dermatophagoides farinae 0/1; Class Dog Dander 0; Class Elm 0; Class Maple Box Elder 0; Class Mountain Cedar 0; Class Mouse Urine Protein 3; Class Mugwort 0; Class Oak 0; Class Penicillium crysogenum 0; Class Rough Pigweed 0; Class Sheep Sorrel 0; Class Sycamore 0; Class Timothy Grass 0; Class Walnut Tree 0; Class White Ash 0; Class White Mulberry 0; D002 - IgE D farinae 0.31 kU/L; E001 - IgE Cat Dander <0.10 kU/L; E005 - IgE Dog Dander <0.10 kU/L; G006 - IgE Timothy Grass <0.10 kU/L; I006-IgE Cockroach, German 0.15 kU/L; M002 - IgE Cladosporium herbar <0.10 kU/L; M003 - IgE Aspergillus fumigat <0.10 kU/L; M006 - IgE Alternaria alternat <0.10 kU/L; T001 IgE Maple/Box Elder <0.10 kU/L; T006 - IgE Cedar, Mountain <0.10 kU/L; T007 - IgE Oak, White <0.10 kU/L; T008 IgE Elm, American <0.10 kU/L; T010 - IgE Walnut <0.10 kU/L; T011 - IgE Maple Leaf Sycamore <0.10 kU/L; T014 - IgE Cottonwood <0.10 kU/L; T015 - IgE Ash, White <0.10 kU/L; T070 - IgE White Mulberry <0.10 kU/L; W001 - IgE Ragweed, Short <0.10 kU/L; W006 - IgE Mugwort <0.10 kU/L; W014 IgE Pigweed, Common <0.10 kU/L; W018 IgE Sheep Sorrel <0.10 kU/L
== END 2024-10-30 08:48 | disposition home or self-care (01) ==
LOC: HO.LAB 08:47
PROVIDERS: PCP Internal Medicine; Visit Provider Hospitalist
DX: G47.33 Obstructive sleep apnea (adult) (pediatric) (principal); R07.9 Chest pain, unspecified; M79.604 Pain in right leg; M79.605 Pain in left leg; M47.816 Spondylosis without myelopathy or radiculopathy, lumbar region; L40.9 Psoriasis, unspecified; J43.9 Emphysema, unspecified; J98.4 Other disorders of lung; T78.40XA Allergy, unspecified, initial encounter; J44.89 Other specified chronic obstructive pulmonary disease; R91.1 Solitary pulmonary nodule
CPT/HCPCS: 36415; 82785; 85025; 86003; 99212

== ENCOUNTER 2024-11-21 08:57 | Outpatient (AMB) | payer OTHER, SELFPAY ==
[2024-11-21 09:02] VITALS: BP 123/70; PULSE 82; RESP 16; O2SAT 99; BMI 24.6
--- NOTE | 2024-11-21 09:02 | A.OFFVIS_ITS ---
Vital Signs 11/21/24 09:02 Height 5 ft Weight 126 lb BMI 24.6 BP 123/70 Blood Pressure Location Lt brachial Position Sitting Respiration 16 Pulse 82 Pulse Source Pulse Oximeter Pulse Oximetry (%) 99 Oxygen Delivery Method Room Air Intake Visit Reasons: Spondylosis without myelopathy or radiculopathy Public Records Officer Required: Yes Public Records Officer Services: Public Records Officer Present Public Records Officer Name: Dianna Flange Turner: Flange Turner Present Accompanied by: Daughter Allergies naproxen Allergy (Intermediate, Verified 11/21/24 09:07) abdominal pain ibuprofen (From Motrin) Adverse Reaction (Mild, Verified 11/21/24 09:07) stomach pain HPI Comments Details: Laura Wang is 73 years old female who presents in my office accompanied by her daughter helped us to continue this conversation in Guinean. She is suffering from lower back pain. She reports pain across the lower back with radiation into the bilateral lower extremities to the thighs lower legs and sometimes into the feet. She went for the MRI of the lumbar spine results of the MRI dictated as below. She reports pain aggravation with prolonged sitting as well as pain aggravation was walking. She reports that flexing forward and flexing backwards aggravate her pain. She has tremendous difficulty lifting objects from the floor. In the past she was treated in this office by BILL Edwards and , who performed left sacroiliac joint injection as well as hip steroid injection. She reports that none of those procedures her pain. Attention today was attracted to the MRI in 2021 which demonstrated Modic type changes, there is no significant neural foraminal stenosis or compression of the nerve roots on the MRI there is advanced disc degeneration. There is advanced spondylosis of the lumbar spine. We discussed situation with the patient. I offered her to perform medial branch block bilateral diagnostic L3, L4, dorsal ramus L5, if this procedure will not be helpful for the patient I would consider repeating MRI and performing intercept RFA for L4-5 level. [facility] Medical History (Updated 11/21/24 @ 09:34 by Luther Rodrigez MD) Allergies Fibromyalgia Sacroiliitis Physical exam Chest pain Blurry vision Abnormal chest x-ray Pre-op examination Emphysema of lung Thoracic back pain Muscle spasm Back pain Chronic restrictive lung disease Temporomandibular joint (TMJ) pain Anemia Osteopenia Postmenopausal Obese Chronic pain syndrome Hypovitaminosis D Depression with anxiety Surgical History H/O colonoscopy S/P FARRAH-BSO (total abdominal hysterectomy and bilateral salpingo-oophorectomy) Family History Father No problems noted. Mother Emphysema lung Sister Colon cancer Social History Housing: Apartment Alcohol intake: never Patient Tobacco Use Status: Former Tobacco user Tobacco use type: Cigarette e-Cigarette/Vaping Use: Never Used Second Hand Smoke Exposure: No Advance Directives Date on File: 01/12/22 service: No Current occupational status: unemployed Cognitive needs: Yes Hearing needs: No Vision needs: No Review of Systems Const All systems reviewed & are unremarkable except as noted in HPI and below ENT Reports Normal hearing present Neuro Reports Normal hearing present, Denies Abnormal speech present, Denies confusion and Denies Sensory deficit (Neuro) Psych Denies confusion Physical Exam Vital Signs: Last Vital Signs Pulse 82 11/21/24 09:02 Resp 16 11/21/24 09:02 BP 123/70 11/21/24 09:02 Pulse Ox 99 11/21/24 09:02 Oxygen Delivery Method Room Air 11/21/24 09:02 BMI result Body Mass Index 24.6 Const General: no acute distress; No confusion Orientation/consciousness: patient oriented x3 and No confusion Eyes General: appearance normal, both eyes and all related structures Pupils: Equal, round and reactive pupils present EOM: EOMs intact bilaterally Neck Neck: Yes full ROM Chest Chest palpation & inspection: normal inspection of the chest Resp Effort & Inspection: normal respiratory effort, able to speak in complete sentences, normal respiratory pattern, no audible wheezes and no cough Cardio Jugular venous distension: no JVD GI Inspection: Yes normal to inspection Back/Spine/Pelvis Other: Flexing forward and flexing backwards aggravate her pain. Flexing backwards make her pain aggravated more than flexing forward. Aram test is positive b ilaterally, Gaenslen test is positive bilaterally, loading test is positive bilaterally there is severe tenderness on palpation in projection of bilateral paraspinal region of the most lower portion of the lumbar spine. Denies Valsalva maneuver aggravate her pain. Neuro General: patient oriented x3, gait normal and No confusion Cranial nerves: Yes CN's II-XII intact bilaterally, Yes Equal, round and reactive pupils present, Yes Normal hearing present and Yes Ability to bilaterally elevate shoulders present Speech: No Abnormal speech present Gait exam (Neuro): Normal gait present Motor exam (neuro): 5/5 motor strength present throughout Sensory Exam: No Sensory deficit (Neuro) Extrem General: No pedal edema Psych Speech and movement: Normal speech and movement present Affect: normal affect Attitude: cooperative Thought process: Normal thought process present Thought content: Normal thought content present Insight: Good insight present (Psych) Judgement: Good judgement present (Psych) Results Reviewed Results Reviewed: MR LUMBAR SPINE WITHOUT CONTRAST 01/08/22 FINDINGS: Normal anatomic alignment. Moderate degenerative disc disease at L2-L3 and L4-L5. Mild degenerative disc disease at all additional levels. Associated mixed Modic type discogenic endplate changes including minimal Modic type I discogenic edema at L4-L5. Lipid rich hemangiomas within the L2, L3, and S1 vertebral bodies. No additional suspicious marrow edema. The vertebral body heights are well-maintained. The conus medullaris terminates at the level of L1-L2. The distal spinal cord is normal in appearance. Mild subcutaneous edema within the soft tissues of the back at the level of L4. No additional significant abnormalities of the paraspinal musculature. Mild prominence of the left greater than right renal pelvises and proximal ureters. Otherwise, limited evaluation of the intra-abdominal structures without significant abnormalities. The abdominal aorta is of normal contour and caliber. AXIAL SPINAL LEVELS: T12-L1: Normal annular contour. There is mild bilateral facet joint arthropathy. There is no neural foraminal stenosis. There is no spinal canal stenosis. L1-L2: Normal annular contour. There is no facet joint arthropathy. There is no neural foraminal stenosis. There is no spinal canal stenosis. L2-L3: Mild diffuse disc bulge with superimposed shallow left central disc protrusion. There is moderate right and mild left facet joint arthropathy. There is mild bilateral neural foraminal stenosis. There is no spinal canal stenosis. L3-L4: Mild diffuse disc bulge. There is moderate bilateral facet joint arthropathy. There is mild bilateral neural foraminal stenosis. There is no spinal canal stenosis. L4-L5: Mild diffuse disc bulge. There is moderate bilateral facet joint arthropathy. There is mild bilateral neural foraminal stenosis. There is narrowing of the subarticular zones with no overt spinal canal stenosis centrally. L5-S1: Shallow diffuse disc bulge. There is moderate bilateral facet joint arthropathy. There is mild bilateral neural foraminal stenosis. There is stenosis of the subarticular zones with no overt spinal canal stenosis centrally. IMPRESSION: Mild to moderate multilevel degenerative spondyloarthropathy of the lumbar spine as described in detail above. Most notably, there are narrowing/stenoses of the subarticular zones at L4-L5 and L5-S1. Mild neural foraminal stenoses from L2-S1. No overt spinal canal stenosis centrally. Nonspecific mild distention of the left greater than right renal pelvises and proximal ureters. XR BILATERAL HIPS WITH AP PELVIS 03/15/22 FINDINGS: The bones and soft tissues are normal. No fracture. Sacroiliac and hip joints are normal. Pubic symphysis is normal. No abnormal soft tissue calcifications. IMPRESSION: Normal pelvis and hips. Assessment & Plan Assessment & Plan (1) Vertebrogenic low back pain: Code(s): M54.51 - Vertebrogenic low back pain Category: Medical (2) Spondylosis of lumbar region without myelopathy or radiculopathy: Code(s): M47.816 - Spondylosis without myelopathy or radiculopathy, lumbar region Category: Medical (3) Chronic pain syndrome: Code(s): G89.4 - Chronic pain syndrome Category: Medical Plan This patient's pain is multifactorial in nature. On physical exam there is significant sacroiliac joint symptomatology including positive Aram's and positive Gaenslen test bilaterally. There is also prominent loading test on physical exam and severe palpation tenderness in the most lower portion of the lumbar spine. She received sacroiliac joint steroid injections and left hip steroid injection in the past without significant improvement. On the MRI from 2021 there are Modic type 1 changes most significant at L4-5. My differential diagnosis for the source of the pain would be between the vertebra genic pain syndrome versus spondylotic lumbar spine pain. I will schedule her for diagnostic medial branch block L3, L4, dorsal ramus L5 bilateral. I will evaluate results of the injections and if it is not effective to control her pain we will consider new MRI possibly to evaluate new nerve root compressions and possibly to evaluate progression of the vertebra genic pain syndrome. Patient Instructions: I here by testify that I spent 45 minutes in conversation with this patient as well as evaluating her prior records evaluating her prior images evaluating diagnostic reports, planning her care and organizing this note. Coding Level of Care Code Est Pt Level 5 (27328) Diagnoses Vertebrogenic low back pain M54.51 Spondylosis of lumbar region without myelopathy or radiculopathy M47.816 Chronic pain syndrome G89.4
== END 2024-11-21 09:17 | disposition home or self-care (01) ==
LOC: HO.PMC 08:58
PROVIDERS: PCP Internal Medicine; Visit Provider Anesthesiology
DX: M54.51 Vertebrogenic low back pain (principal); M47.816 Spondylosis without myelopathy or radiculopathy, lumbar region; G89.4 Chronic pain syndrome
CPT/HCPCS: 99215

== ENCOUNTER → 2024-11-21 08:57 | Outpatient (BNVA) | payer OTHER, SELFPAY | PROVIDERS: PCP Internal Medicine; Visit Provider Anesthesiology | DX: M54.51 Vertebrogenic low back pain (principal); M47.816 Spondylosis without myelopathy or radiculopathy, lumbar region; G89.4 Chronic pain syndrome | CPT/HCPCS: 99212 ==

== ENCOUNTER 2024-11-29 08:55 | Outpatient (AMB) | payer OTHER, SELFPAY ==
--- NOTE | 2024-11-29 09:15 | A.OFFVIS_ITS ---
Vital Signs 3 11/29/24 09:39 Height 5 ft Weight 124 lb 12.506 oz BMI 24.4 BP 117/62 Blood Pressure Location Lt brachial Position Sitting Pulse 77 Intake Visit Reasons: Follow up GERD Intake Note: Laura returns to in office follow up of GERD. CC: Patient c/o RUQ abd pain, lower back pain, stomach pain, pain with urination, urinary frequency, N/V, and constipation. Per patient she began to have pain around the same time she started taking a new cholesterol med about a month ago. Automatic Oven Operator Required: Yes Automatic Oven Operator Language: Blind Installer Services: Automatic Oven Operator Offered & Declined Automatic Oven Operator Name: daughter Accompanied by: Daughter Allergies naproxen Allergy (Intermediate, Verified 11/29/24 09:48) abdominal pain ibuprofen (From Motrin) Adverse Reaction (Mild, Verified 11/29/24 09:48) stomach pain HPI HPI Follow up GERD: Details: Assessment & Plan (1) Nodule on liver: Code(s): K76.89 - Other specified diseases of liver Category: Medical (2) Psoriasis and similar disorder: Comment: ? psoriatic patches on elbows and fingertips Code(s): L40.9 - Psoriasis, unspecified Category: Medical (3) [place] (hard of hearing): Code(s): H91.90 - Unspecified hearing loss, unspecified ear Category: Medical Plan Mauritian #Tachira LIve She continues on bisacodyl and simethicone to control her constipation and bloating. She continues to suffer quite a lot of pain. she is discussing possible spinal stim she c/o cracking and bleeding on her fingertips and dry patches on her elbows - this leads me to question if she has psoriatic oa - referring to dermatology and if psoriasis this could impact her arthritis tx. Given her radiologic evidence of DISH syndrome and inflammatory arthritis could be a distinct possibility. She is also c/o [place]. Referring to Speech and hearing ROV 3 mos. Agreeable to repeat MRI Orders: Orders MR abdomen wo con Today K76.89 - Other specified diseases of liver Referrals Dermatology Referral L40.9 - Psoriasis, unspecified Speech and Hearing Referral H91.90 - Unspecified hearing loss, unspecified ear Medications: Refilled simethicone after meals 180 mg PO QID 120 caps 6RF 30 days bisacodyl (Dulcolax (bisacodyl)) 10 mg (2 x 5 mg) PO BEDTIME 60 tabs 6RF 30 days K59.00 - Constipation, unspecified MR OF THE ABDOMEN 02/24/2024 FINDINGS: There is mild motion artifact. There is no significant loss of signal intensity on opposed phase imaging to suggest steatosis. There is minimal surface nodularity compatible with the history of cirrhosis. There is no intra or extrahepatic biliary ductal dilatation. There is mildly heterogeneous enhancement particularly in the right lobe. However, no discrete mass is identified. There is no restricted diffusion. The gallbladder, spleen, pancreas, adrenals, and kidneys are unremarkable. No retroperitoneal lymphadenopathy or ascites is identified in the upper abdomen. MR/MR abdomen wo/w con IMPRESSION: Minimal surface nodularity compatible with history of cirrhosis. Mild degenerative heterogeneous enhancement without evidence of a discrete mass. TODAY'S VISIT Mauritian #dtr translates per pt request [facility] Medical History (Updated 11/29/24 @ 10:03 by ROSALES Lofton) Abdominal pain Allergies Fibromyalgia Sacroiliitis Physical exam Chest pain Blurry vision Abnormal chest x-ray Pre-op examination Emphysema of lung Thoracic back pain Muscle spasm Back pain Chronic restrictive lung disease Temporomandibular joint (TMJ) pain Anemia Osteopenia Postmenopausal Obese Chronic pain syndrome Hypovitaminosis D Depression with anxiety Surgical History H/O colonoscopy S/P FARRAH-BSO (total abdominal hysterectomy and bilateral salpingo-oophorectomy) Family History Father No problems noted. Mother Emphysema lung Sister Colon cancer Social History (Reviewed 11/29/24 @ 09:52 by Josesito Watkins [facility]) Housing: Apartment Alcohol intake: never Patient Tobacco Use Status: Former Tobacco user Tobacco use type: Cigarette e-Cigarette/Vaping Use: Never Used Second Hand Smoke Exposure: No Advance Directives Date on File: 01/12/22 service: No Current occupational status: unemployed Cognitive needs: Yes Hearing needs: No Vision needs: No Review of Systems Const Denies fatigue, Denies fever(s), Denies night sweats, Reports poor appetite and Denies weight loss ENT Reports Normal hearing present, Denies dental pain, Denies dysphagia, Denies hearing loss, Denies mouth pain, Reports neck pain, Denies odynophagia, Denies throat swelling, Denies tongue swelling and Reports other (Dentition adequate) Card Reports no additional complaints Resp Reports no additional complaints GI Details: Reports abdominal pain, Denies melena, Reports bloating, Denies hematochezia, Reports constipation, Denies GI cramping, Denies dysphagia, Denies excessive flatus, Denies early satiety, Denies heartburn, Denies diarrhea, Reports nausea, Denies odynophagia, Reports vomiting and Denies hematemesis Reports dysuria Musc Reports back pain, Reports myalgias, Reports arthralgias and Reports neck pain Skin/Breast Denies pruritus, Denies lesions, Denies rash and Denies jaundice Neuro Reports Normal hearing present and Denies Abnormal speech present Endo Denies fatigue Aller/Immun Denies throat swelling and Denies tongue swelling Physical Exam Vital Signs: Last Vital Signs Pulse 77 11/29/24 09:39 BP 117/62 11/29/24 09:39 BMI result Body Mass Index 24.4 Const General: cooperative, no acute distress, well developed and well groomed Nutritional Appearance: average body habitus and well nourished Orientation/consciousness: oriented to person, oriented to place and oriented to time Limitations: language barrier HEENT Head: Yes normocephalic and Yes atraumatic Eyes General: appearance normal, both eyes and all related structures Pupils: Equal, round and reactive pupils present Neck Neck: Yes normal visual inspection and Yes no lymphadenopathy Thyroid: Thyroid normal Resp Effort & Inspection: normal respiratory effort and able to speak in complete sentences Auscultation: clear to auscultation bilaterally Cardio Rate: regular rate Rhythm: regular rhythm Heart sounds: Normal, physiologic split S2 sound present Peripheral pulses: radial pulses present and posterior tibial pulses present GI Inspection: No distended, Yes Abdominal panniculus present, Yes obesity, Yes scar and Yes striae Palpation (GI): Soft to palpation, Tenderness to palpation present (GI) in the LUQ, in the RUQ and periumbilically, no guarding, not rigid and No hepatosplenomegaly present Percussion: Yes normal to percussion Auscultation: Hyperactive bowel sounds present Rectal Exam - Female: deferred Abdomen image: 2 1. surgical scar Skin General skin exam: no rashes or lesions noted, turgor normal, skin not dry, no jaundice, No spider nevi and no striae Rashes: no rashes Nails: normal Neuro General: oriented to person, oriented to place and oriented to time Cranial nerves: Yes Equal, round and reactive pupils present and Yes Normal hearing present Speech: No Abnormal speech present Extrem General: Yes normal to inspection, No clubbing, No cyanosis and No edema Psych Appearance: grossly normal and well kempt Mental Status: mental status grossly normal Speech and movement: Normal speech and movement present Affect: normal affect Attitude: cooperative Thought process: Normal thought process present and not confabulating Thought content: Normal thought content present Insight: Limited insight present (Psych) Judgement: Limited judgement present (Psych) Assessment & Plan Assessment & Plan (1) Abdominal pain: Code(s): R10.9 - Unspecified abdominal pain Category: Medical (2) Constipation: Code(s): K59.00 - Constipation, unspecified Category: Medical (3) Cirrhosis: Comment: BASELINE LABS 07/23/22 Plt Count 405 H Estimated GFR 11/23/17 SUSAN Screen Negative Hepatitis A IgM Ab NONREACTIVE Hep Bs Antigen NEGATIVE Hep Bs Antibody REACTIVE Hep B Core Total A b REACTIVE Hepatitis C Ab (EI A) NONREACTIVE 11/23/17 SUSAN Screen Negative Anti-Mitochondrial Ab NEGATIVE Anti-Smooth Muscle Ab <20 CURRENT LABS 01/25/23 09:44 Total Bilirubin 0.5 AST 23 ALT 13 Alkaline Phosphatase 111 MRI OF THE ABDOMEN LIVER PROTOCOL IMPRESSION: Limited examination secondary to motion. Focal arterially hyperenhancing observation in the posterior right hepatic lobe, no associated washout or pseudocapsule, no clear correlate on precontrast images. Nonspecific could be perfusional in etiology. Recommend a short-term follow up abdominal MRI with and without IV contrast in 3 months. Dictated By: Desiree Mora Signed By: <Electronically signed by Desiree Mora in OV> 08/24/22 Code(s): K74.60 - Unspecified cirrhosis of liver Category: Medical Qualifiers: Hepatic cirrhosis type: unspecified hepatic cirrhosis Ascites presence: unspecified Qualified Code(s): K74.60 - Unspecified cirrhosis of liver Plan Mauritian # daughter translates per patient request The current GI regimen consists of bisacodyl 1-2 tablets and simethicone. - The patient is a 74-year-old female presenting for follow-up of constipation and bloating. She has a new complaint of abdominal pain and some urinary symptoms. - Right flank pain began a month prior, radiating to the upper umbilical region and back, with a burning quality and worsening with food intake. - Pain onset occurs approximately 30 minutes after eating and may last until the patient falls asleep. - Daily nausea and vomiting are reported, worsening upon eating. - Bowel movements occur every two days, with noted poor response to bisacodyl medication. We review the MRI that we obtained last year to investigate a suspect liver lesion and this ended up being just an area of increased fatty attenuation with no cause for concern. She does have cirrhosis at her baseline. I believe constipation may be the driving force bus hind her pain so I suggest we start her on a trial of Linzess 145 micro g and titrate to affect her side effect. Her daughter is also on this medication. If the 145 dose does not work for her then she can add the bisacodyl on top of it until we can get together and I can increase the dose. We will also get an abdominal x-ray to evaluate her stool burden and make sure there is no obstruction to be concerned about along with a Chem panel a thyroid and a urinalysis to address her urinary concerns. Return office visit in 5 weeks Orders: Orders 2 Comprehensive Met. Panel Today K59.00 - Constipation, unspecified, R10.9 - Unspecified abdominal pain TSH reflex Free T4 Today K59.00 - Constipation, unspecified, R10.9 - Unspecified abdominal pain XR abdomen w decubitus Today R10.9 - Unspecified abdominal pain UA CC w/rflx Micro + Cult Today K59.00 - Constipation, unspecified, R10.9 - Unspecified abdominal pain Medications: New 2 linaclotide (Linzess) Take first thing in the morning with a full glass of water. 145 mcg PO QAM 30 caps 3RF K58.1 - Irritable bowel syndrome with constipation Coding Level of Care Code Est Pt Level 4 (73272) Diagnoses Abdominal pain R10.9 Constipation K59.00 Hepatic cirrhosis, unspecified hepatic cirrhosis type, unspecified whether ascites present K74.60 Hepatic cirrhosis type: unspecified hepatic cirrhosis Ascites presence: unspecified Time Spent (min) 45
[2024-11-29 09:39] VITALS: BP 117/62; PULSE 77; BMI 24.4
== END 2024-11-29 10:11 | disposition home or self-care (01) ==
LOC: HO.HGI 08:56
PROVIDERS: PCP Internal Medicine; Visit Provider Nurse Practitioner
DX: R10.9 Unspecified abdominal pain (principal); K59.00 Constipation, unspecified; K74.60 Unspecified cirrhosis of liver
CPT/HCPCS: 99214

== ENCOUNTER → 2024-11-29 08:55 | Outpatient (BNVA) | payer OTHER, SELFPAY | PROVIDERS: PCP Internal Medicine; Visit Provider Nurse Practitioner | DX: K59.00 Constipation, unspecified (principal); K74.60 Unspecified cirrhosis of liver; R10.9 Unspecified abdominal pain; Z79.899 Other long term (current) drug therapy | CPT/HCPCS: 99212 ==

== ENCOUNTER 2024-12-04 08:24 | Outpatient (REF) | payer OTHER, SELFPAY ==
--- NOTE | ~2024-12-04 | XR_ITS ---
EXAMINATION: XR ABDOMEN COMPLETE CLINICAL INDICATION: R10.9 - Unspecified abdominal pain COMPARISON: None available. TECHNIQUE: Supine and upright views of the abdomen obtained. FINDINGS: Bowel gas pattern is normal/nonspecific. There is no focally dilated loop, or differential air-fluid level on the upright radiograph. There is a normal stool burden present. There are no abnormal soft tissue calcifications evident. No organomegaly. No large abdominal mass. Lung bases clear. There is no suspicious bone lesion. There is a mild right convex lumbar scoliosis with mild to moderate degenerative spondylosis. XR/XR abdomen min 2V IMPRESSION: Unremarkable KUB abdomen. Electronically signed by: Arthur Ronquillo MD 12/04/2024 09:26 AM EDT RP
[2024-12-04 10:03] LABS: Appearance Urine Clear; Glucose Urine UA Negative (Negative); PH 6.5 (5.0-9.0); Specific Gravity - Urine 1.010 (1.005-1.025); UMIC TRIGGER UACC YES
[2024-12-04 10:27] LABS: Other Crystals Urine Present; UACC Culture Trigger YES
[2024-12-04 13:01] LABS: Alanine Aminotransferase 15 U/L (0-31); Albumin Level 4.3 g/dL (3.5-5.0); Alkaline Phosphatase 123 U/L (39-117); Anion Gap 9 (12-20); Aspartate Amino Transferase 24 U/L (5-31); Blood Urea Nitrogen 6 mg/dL (9-16); Calcium 9.5 mg/dL (8.4-10.2); Carbon Dioxide 30 mmol/L (22-29); Chloride 107 mmol/L (96-108); Estimated Glomerular Filt Rate > 60; Potassium 3.4 mmol/L (3.3-5.1); Sodium 143 mmol/L (135-145); Total Protein 6.9 g/dL (6.5-8.0)
== END 2024-12-04 08:25 | disposition home or self-care (01) ==
LOC: HO.LAB 08:24
PROVIDERS: PCP Internal Medicine; Visit Provider Nurse Practitioner
DX: K59.00 Constipation, unspecified (principal); R10.9 Unspecified abdominal pain
CPT/HCPCS: 36415; 74019; 80053; 81001; 81003; 84443; 87086

== ENCOUNTER → 2024-12-04 08:45 | Outpatient (BNV) | payer OTHER, SELFPAY | PROVIDERS: PCP Internal Medicine; Visit Provider Radiology Diagnostic Radiology | DX: R10.9 Unspecified abdominal pain (principal) | CPT/HCPCS: 74019 ==

== ENCOUNTER 2024-12-17 08:14 | Outpatient (REF) | payer OTHER, SELFPAY ==
--- NOTE | ~2024-12-17 | XR_ITS ---
EXAMINATION: XR HIP, RIGHT CLINICAL INFORMATION: M25.551 - Pain in right hip COMPARISON: Pelvis x-ray dated March 15, 2022. TECHNIQUE: AP and oblique views of the right hip. FINDINGS: Subchondral cyst formation and sclerosis along the lateral aspect of the greater trochanter right femur. Coxofemoral joint is intact with preservation of the joint space. No acute fracture or dislocation. Spondylosis L5-S1. No lytic or blastic lesions. Degenerative changes in the symphysis pubis. XR/XR hip RT min 2V IMPRESSION: Degenerative changes in the greater trochanter, right femur. Trochanter bursitis cannot be excluded. Electronically signed by: Tyrese Rivas MD 12/17/2024 09:53 AM [facility]
--- OUTSIDE RECORDS SUMMARY | 2024-12-17 10:23 | XMS_ITS ---
Author Name Veena ODOM, MRS. Deal Address [address] [place] [address] Phone [phone] [facility] Team Providers Care Health Information Administrator Name Role Phone Toyin Curiel Unavailable [phone] Colette Esteves Unavailable [phone] Princess Kearns Unavailable [phone] SUSAN IBARRA Unavailable [phone] Unavailable Unavailable [phone] Reason for Referral Not Available Allergies, adverse [...] 600MG TABLETS TAKE 1 TABLET BY M OUT TWICE DAILY 2021-07-16 2024-04-26 VITAMIN D3 2000UNIT [...] on days 2-5 2023-08-24 2024-03-04 Polymyxin B-Trimethoprim 57736-0.1 UNIT/ML-% Solution Ophthalmic 1 drop ophthalmically into both eyes 4 times per day for 5 days 2023-08-242024-04-26 Cetirizine 10 mg Tab TOME 1 TABLETA [...] MOUTH TWICE DAILY 2024-04-10 No Data Available Kvvmmvck-Jwdvyebub-OW 3.5-49480-1 Suspension SHAKE LIQUID AND INSTILL 4 DROPS [...] MOUTH EVERY NIGHT 2024-09-18 No Data Available tiZANidine 4 mg Tab 1 tablet two tablets a day as needed 2024-11-16 No Data Available predniSONE 20 mg Tab Take 2 tablet daily for 5 days. 2024-11-16 No Data Available Benzonatate 200 mg Cap 1 capsule orally 3 times per day PRN cough 2024-11-16 No Data Available Problem List Problem Status Onset Date Resolved Date Synopsis Chronic prescription benzodiazepine use Active 2021-12-30 N/A Has been taki ng clonazepam for 10+ yearsDiscussed risk of sedation UTI (urinary tract infection)Nausea Resolved 2023-10-11 2024-04-26 10/11/2023eRx N ew Tylenol Extra Strength 500 mg Tab 2 tablet orally Q6hrs prn pain/fever #30 tablet LJe2fDo New Ondansetron 8 mg Tab Disintegrating 1 tablet orally every 8 hours as needed nausea #30 tablet FIp3yVi New Macrobid 100 mg Cap Take 1 tablet PO twice daily for 7 days. #14 tablet RFx/06/07: Improved per pt, denies ss today. 11/20/23:Member describing dysuria and recurrent UTI symptomsStart bactrim DS BID x 5 daysEncouraged increased fluid intake, especially waterAPP f/u is scheduled for 11/21 regarding back symptoms, but can call back sooner for any new or worsened husecrrv62/8/24: Symptoms began 2 days ago on Tuesday. [...] in each nostril twice daily #1 each BDl2Nahtfw Promethazine-DM 6.25/15 mg/5ML Syrup 5 ml orally every 4-6 hours as needed for cough #200 ml FTc3Lem use cool mist vaporizer/humidifier next to bed [...] + days. Inhaler puffer 4/ day for zpsacuwqkpvhlxe81/21/2023Ve ry difficult to assess. Not a relieble [...] Rx: Breo Elipta, Albuterol HFA PRN, Levalbuterol nebsRoutine pulmonology follow up04/26/24: Saw her pulm today, [...] 45 tabs. Will refill rx, sent to [facility].04/26/24: Tizanidine helps more than Flexeril. I last filled on 03/06/24 for 45 tabs, member requesting refill today, tolerating.11/16/24: Refilled tiZANidine 4 mg Tab-1 tablet two tablets a day as neededTylenol for pain. Contact [facility] 06/09 for any new, worsening or continued symptoms. Dental abscess and pain Active 2024-08-03 N/A 0 08/03/24: Rx: Amoxicillin-Pot Clavulanate 875/125 mg Tab-Take 1 tablet PO twice daily for 7 days. (also treating URI) Advised to take Tylenol or ibuprofen. Rinse mouth with warm salt water. Follow up with a Dentist. Contact [facility] 06/09 for any new, worsening or continued symptoms. URI (upper respiratory infection) Active 2024-08-03 N/A 08/03/24: Rx: Amoxicillin-Pot Clavulanate 875/125 mg Tab-Take 1 tablet PO twice daily for 7 days (also treating dental abscess) Albuterol inhaler and nebs every 2 hrs as needed. Zyrtec (cetirizine) or Claritin (loratadine) or Benadryl daily. Drink hot tea with honey and lemon. Contact [facility] 06/09 for any new, worsening or continued symptoms. Constipation Active 2024-08-03 N/A 08/03/24: Rx : Docusate Sodium 100 mg Cap-1 capsule orally daily. Advised to increase fluids and fiber intake (eat prunes or prune juice daily). Take OTC MiraLAX, Senna-S or Dulcolax, Dulcolax suppository. Contact [facility] 06/09 for any new, worsening or continued [...] CB is available 06/09 for acute needs. COPD exacerbation Active 2024-11-16 N/A 11/16/24 : Rx: predniSONE 20 mg Tab-2 tabs daily x5 days. Benzonatate 200 mg Cap-1 capsule orally 3 times per day PRN cough. Albuterol inhaler every 2 hrs and nebs every 4 hrs as needed. Zyrtec (cetirizine) or Claritin (loratadine) or Benadryl daily. Drink hot tea with honey and lemon. Contact [facility] 06/09 for any new, worsening or continued symptoms after taking antibiotics for 3-4 days. Encounters Encounters Type Facility Date of Service Diagnosis/Co mplaint New patient,40-59min; chronic exacerbation, 2 stable chronic or 1 acute illness add add modifier 95 for video (do not use for phone, instead use [id number]) [facility] [place] Opioid dependence, uncomplicatedLong term (current) use of opiate analgesicSedative, hypnotic or anxiolytic dependence, uncomplicatedDorsalgia, unspecifiedSciatica, unspecified sideSacroiliitis, not elsewhere classified New patient,40-59min; chronic exacerbation, 2 stable chronic or 1 acute illness add add modifier 95 for video (do not use for phone, instead use 35930-93) [facility] [place] New patient,40-59min; chronic exacerbation, 2 stable chronic or 1 acute illness add add modifier 95 for video (do not use for phone, instead use 33226-72) [facility] [place] New patient,40-59min; chronic exacerbation, 2 stable chronic or 1 acute illness add add modifier 95 for video (do not use for phone, instead use 36694-60) [facility] [place]20[place] New patient,40-59min; chronic exacerbation, 2 stable chronic or 1 acute illness add add modifier 95 for video (do not use for phone, instead use 03566-98) [facility] [place] 12[place]20[place] New patient,40-59min; chronic exacerbation, 2 stable chronic or 1 acute illness add add modifier 95 for video (do not use for phone, instead use 61022-85) [facility] [place] 12[place]/2021 New patient,40-59min; chronic exacerbation, 2 stable chronic or 1 acute illness add add modifier 95 for video (do not use for phone, instead use 30900-36) [facility] [place] 12[place]/2021 New patient,40-59min; chronic exacerbation, 2 stable chronic or 1 acute illness add add modifier 95 for video (do not use for phone, instead use 72453-08) [facility] ([place]/20[place] New patient,40-59min; chronic exacerbation, 2 stable chronic or 1 acute illness add add modifier 95 for video (do not use for phone, instead use 52316-90) [facility] [place] 12/[place]/2021 Estab. patient 30-39min; chronic exacerbation, 2 stable chronic or 1 acute illness add add modifier 95 for video, (do not use for phone, instead use 43949-23) [facility] [place] 01/26/2023 Opioid dependence, uncomplicatedLong term (current) use of opiate analgesicSedative, hypnotic or anxiolytic dependence, uncomplicatedDorsalgia, unspecifiedSciatica, unspecified sideSacroiliitis, not elsewhere classifiedChronic obstructive pulmonary disease, unspecifiedCough, unspecified Estab. patient 30-39min; chronic exacerbation, 2 stable chronic or 1 acute illness add add modifier 95 for video, (do not use for phone, instead use 34140-78) [facility] [place] 01[place]26/2023 Estab. patient 30-39min; chronic exacerbation, 2 stable chronic or 1 acute illness add add modifier 95 for video, (do not use for phone, instead use 31901-19) [facility] [place] 01/26/2023 Estab. patient 30-39min; chronic exacerbation, 2 stable chronic or 1 acute illness add add modifier 95 for video, (do not use for phone, instead use 28022-52) [facility] [place] 01/26/2023 Estab. patient 30-39min; chronic exacerbation, 2 stable chronic or 1 acute illness add add modifier 95 for video, (do not use for phone, instead use 93511-38) [facility] ([place] 01/26/2023 Estab. patient 30-39min; chronic exacerbation, 2 stable chronic or 1 acute illness add add modifier 95 for video, (do not use for phone, instead use 63586-95) [facility] [place] 01/26/2023 Estab. patient 30-39min; chronic exacerbation, 2 stable chronic or 1 acute illness add add modifier 95 for video, (do not use for phone, instead use 85346-67) [facility] [place] 01/26/2023 Estab. patient 30-39min; chronic exacerbation, 2 stable chronic or 1 acute illness add add modifier 95 for video, (do not use for phone, instead use 55379-77) [facility] [place]23 Estab. patient 30-39min; chronic exacerbation, 2 stable chronic or 1 acute illness add add modifier 95 for video, (do not use for phone, instead use 90145-32) [facility] [place] 01/26/2023 Estab. patient 30-39min; chronic exacerbation, 2 stable chronic or 1 acute illness add add modifier 95 for video, (do not use for phone, instead use 46700-20) [facility] [place] 01/26/2023 Estab. patient 30-39min; chronic exacerbation, 2 stable chronic or 1 acute illness add add modifier 95 for video, (do not use for phone, instead use 78417-42) [facility] [place] 02/03/2023 Dorsalgia, unspecifiedSciati ca, unspecified sideSacroiliitis, not elsewhere classifiedChronic obstructive pulmonary disease, unspecifiedLong term (current) use of opiate analgesicCough, unspecifiedOther petroleum terminal plant operator (current) drug therapy Estab. patient 30-39min; chronic exacerbation, 2 stable chronic or 1 acute illness add add modifier 95 for video, (do not use for phone, instead use 85007-59) [facility] [place] 02[place]03/2023 Estab. patient 30-39min; chronic exacerbation, 2 stable chronic or 1 acute illness add add modifier 95 for video, (do not use for phone, instead use 12430-50) [facility] [place] 02[place]03[place]20[place] Estab. patient 30-39min; chronic exacerbation, 2 stable chronic or 1 acute illness add add modifier 95 for video, (do not use for phone, instead use 99720-64) [facility] [place] 02[place]03[place]20[place] Estab. patient 30-39min; chronic exacerbation, 2 stable chronic or 1 acute illness add add modifier 95 for video, (do not use for phone, instead use 67738-95) [facility] [place] 02[place]03/20[place] Estab. patient 30-39min; chronic exacerbation, 2 stable chronic or 1 acute illness add add modifier 95 for video, (do not use for phone, instead use 37296-94) [facility] [place] 02/03/2023 Estab. patient 30-39min; chronic exacerbation, 2 stable chronic or 1 acute illness add add modifier 95 for video, (do not use for phone, instead use 86194-87) [facility] [place] 02[place]03/20[place] Estab. patient 30-39min; chronic exacerbation, 2 stable chronic or 1 acute illness add add modifier 95 for video, (do not use for phone, instead use 73121-65) [facility] [place] 02/03/2023 No Data Available [facility] [place] 02/10/2023 Cough, unspecifiedSacroiliit is, not elsewhere classifiedDorsalgia, unspecifiedSciatica, unspecified side No Data Available [facility] [place] 02/10/2023 No Data Available [facility] [place] 02/10/2023 No Data Available [facility] [place] 08/10/2023 Dorsalgia, unspecifiedOther chronic painSacroiliitis, not elsewhere classifiedOther muscle spasmOpioid use, unspecified, uncomplicated No Data Available [facility] [place] 08/10/2023 No Data Available [facility] [place] 08/24/2023 Acute upper respiratory infection, unspecified No Data Available [facility] [place] 08/24/2023 No Data Available [facility] [place] 08/24/2023 No Data Available [facility] [place] 09/01/2023 Acute upper respiratory infection, unspecifiedOther problems related to medical facilities and other health care No Data Available [facility] [place] 10/11/2023 Urinary tract infection, sit e not specifiedNausea No Data Available [facility] [place] 10/11/2023 No Data Available [facility] [place] 10/11/2023 Estab. patient 30-39min; chronic exacerbation, 2 stable chronic or 1 acute illness add add modifier 95 for video, (do not use for phone, instead use 51337-76) [facility] [place] 10/19/2023 Dorsalgia, unspecifiedOther chronic painSacroiliitis, not elsewhere classifiedOther alf (current) drug therapyOther muscle spasmOpioid use, unspecified, uncomplicatedChronic obstructive pulmonary disease, unspecifiedOther problems related to medical facilities and other health careUrinary tract infection, site not specifiedNauseaPersonal history of nicotine dependence Estab. patient 30-39min; chronic exacerbation, 2 stable chronic or 1 acute illness add add modifier 95 for video, (do not use for phone, instead use 04412-18) [facility] [place] 10/19/2023 Estab. patient 30-39min; chronic exacerbation, 2 stable chronic or 1 acute illness add add modifier 95 for video, (do not use for phone, instead use 72323-22) [facility] [place] 10/19/2023 Estab. patient 30-39min; chronic exacerbation, 2 stable chronic or 1 acute illness add add modifier 95 for video, (do not use for phone, instead use 18579-85) [facility] [place] 10/19/2023 Estab. patient 30-39min; chronic exacerbation, 2 stable chronic or 1 acute illness add add modifier 95 for video, (do not use for phone, instead use 04572-67) [facility] [place] 10/19/2023 Estab. patient 30-39min; chronic exacerbation, 2 stable chronic or 1 acute illness add add modifier 95 for video, (do not use for phone, instead use 87805-74) [facility] [place] 10/19/2023 Estab. patient 30-39min; chronic exacerbation, 2 stable chronic or 1 acute illness add add modifier 95 for video, (do not use for phone, instead use 37114-89) [facility] [place] 10/19/2023 Estab. patient 30-39min; chronic exacerbation, 2 stable chronic or 1 acute illness add add modifier 95 for video, (do not use for phone, instead use 78634-29) [facility] [place] 10[place]19[place] Estab. patient 30-39min; chronic exacerbation, 2 stable chronic or 1 acute illness add add modifier 95 for video, (do not use for phone, instead use 14768-46) [facility] [place] 10[place]19/2023 Estab. patient 30-39min; chronic exacerbation, 2 stable chronic or 1 acute illness add add modifier 95 for video, (do not use for phone, instead use 02927-95) [facility] [place] 10/19/2023 No Data Available [facility] [place] 11[place]20[place]2023 Sacroiliitis, not elsewhere classifiedDorsalgia, unspecifiedOther chronic painOther muscle spasmOpioid use, unspecified, uncomplicatedUrinary tract infection, site not specifiedNausea No Data Available [facility] [place] 11[place]20/2023 No Data Available [facility] [place] 11/20/2023 No Data Available [facility] [place] 11/20/2023 No Data Available [facility] [place] 11/22/2023 Dorsalgia, unspecifiedOther chronic painSacroiliitis, not elsewhere classifiedOther muscle spasmOpioid use, unspecified, uncomplicatedUrinary tract infection, site not specifiedNauseaOther problems related to medical facilities and other health care No Data Available [facility] [place] 11/22/2023 No Data Available [facility] [place] 01/09/2024 Dorsalgia, unspecifiedOther problems related to medical facilities and other health careOther chronic painSacroiliitis, not elsewhere classifiedOther muscle spasmOpioid use, unspecified, uncomplicated No Data Available [facility] [place] 01/09/2024 Estab. patient 10-29min; 1 minor problem; add add modifier 95 for video, modifier 93 for phone [facility] [place] 02/20/2024 Chronic obstructive pulmonar y disease, unspecifiedDorsalgia, unspecifiedOther chronic painSacroiliitis, not elsewhere classifiedOther muscle spasmOpioid use, unspecified, uncomplicatedOther problems related to medical facilities and other health care Estab. patient 10-29min; 1 minor problem; add add modifier 95 for video, modifier 93 for phone [facility] [place] Estab. patient 10-29min; 1 minor problem; add add modifier 95 for video, modifier 93 for phone [facility] [place] 02/20/20[place] Estab. patient 10-29min; 1 minor problem; add add modifier 95 for video, modifier 93 for phone [facility] [place] 03/04/2024 Acute upper respiratory infection, unspecified Estab. patient 20-29min; 1 stable chronic or 2 minor; add add modifier 95 for video, modifier 93 for phone [facility] [place] 04/26/2024 Dorsalgia, unspecifiedOther chronic painSacroiliitis, not elsewhere classifiedOther muscle spasmOpioid use, unspecified, uncomplicatedOther alf (current) drug therapyChronic obstructive pulmonary disease, unspecifiedAcute [...] for video, modifier 93 for [facility] Estab. patient 20-29min; 1 stable chronic or 2 minor; add add modifier 95 for video, modifier 93 for phone [facility] [place]/26/2024 Estab. patient 10-29min; 1 minor problem; add add modifier 95 for video, modifier 93 for phone [facility] ([place] 08/03/2024 Periapical abscess without sinusOther specified disorders of teeth and supporting structuresAcute upper respiratory infection, unspecifiedConstipation, unspecified Estab. patient 10-29min; 1 minor problem; add add modifier 95 for video, modifier 93 for phone [facility] [place] 09/02/2024 Acute upper respiratory infection, unspecified Estab. patient 10-29min; 1 minor problem; add add modifier 95 for video, modifier 93 for phone [facility] [place] 09/02/2024 Estab. patient 10-29min; 1 minor problem; add add modifier 95 for video, modifier 93 for phone [facility] [place] 09/02/2024 Estab. patient 10-29min; 1 minor problem; add add modifier 95 for video, modifier 93 for phone [facility] [place] 09/02/2024 Estab. patient 10-29min; 1 minor problem; add add modifier 95 for video, modifier 93 for phone [facility] [place] 10/16/2024 Acute suppr otitis media w/o spon rupt ear drum, left earOther seasonal allergic rhinitis Estab. patient 10-29min; 1 minor problem; add add modifier 95 for video, modifier 93 for [facility]16[place] Estab. patient 10-29min; 1 minor problem; add add modifier 95 for video, modifier 93 for [facility] 10/16/[facility] Estab. patient 10-29min; 1 minor problem; add add modifier 95 for video, modifier 93 for [facility] [place]/16[place]2024 Chronic obstructive pulmonar y disease with (acute) exacerbationSacroiliitis, not elsewhere classifiedOther muscle spasmDorsalgia, unspecifiedOther chronic painOpioid use, unspecified, uncomplicated Estab. patient 10-29min; 1 minor problem; add add modifier 95 for video, modifier 93 for phone [facility] [place] 11/16/2024 Estab. patient 10-29min; 1 minor problem; add add modifier 95 for video, modifier 93 for phone [facility] [place] 11/16/2024 Estab. patient 10-29min; 1 minor problem; add add modifier 95 for video, modifier 93 for phone [facility] [place] 11/16/2024 Vital Signs Date of Collection Vitals 2021-12-30 [...] - 99.0 /minBody Temperature - 36.33 Disha 2024-11-16 13:40:17 BP Diastolic - 87.0 mm[Hg]BP Systolic - 144.0 mm[Hg]Heart Rate - 91.0 /minBody Temperature - 36.78 CelO2 % BldC Oximetry - 98.0 % Social History Social History Social History Observation Description Effec tive Time Current Smoking Status Former smoker 3 Sex Female History of Procedures Procedures Service Procedure code Service date Servicing provider Phone# New patient,40-59min; chronic exacerbation, 2 stable chronic or 1 acute illness add add modifier 95 for video (do not use for phone, instead use 02144-81) [id number] 2021-12-30 No Data Available No Data Availa [...] (do not use for phone, instead use 60098-66) [id number] 2023-01-26 No Data Available No Data Availa [...] (do not use for phone, instead use 73117-03) [id number] 2023-02-03 No Data Available No Data Availa [...] No Data Avail able No Data Available [id number] 2023-02-10 No Data Available No Data Available Pain Assessment - Pain Documented on a Pain Scale (1125F) 1125F 2023-02-10 No Data Available No Data Cecilia ilable Medication List Documented (1159F) 1159F 2023-02-10 No Data Available No Data Cecilia ilable No Data Available [id number] 2023-08-10 No Data Available No Data Available Medication List Documented (1159F) 1159F 2023-08-10 No Data Available No Data Cecilia ilable No Data Available [id number] 2023-08-24 No Data Available No Data Available SBP < 130 (3074F) 3074F 2023-08-24 No Data Available No Data Available DBP 80-89 (3079F) 3079F 2023-08-24 No Data Available No Data Available No Data Available [id number] 2023-09-01 No Data Available No Data Available No Data Available [id number] 2023-10-11 No Data Available No Data Available SBP >= 140 3077F 2023-10-11 No Data Available No Data Available DBP >=90 3080F 2023-10-11 No Data Available No Data Available Estab. patient 30-39min; chronic exacerbation, 2 stable chronic or 1 acute illness add add modifier 95 for video, (do not use for phone, instead use 67154-36) [id number] 2023-10-19 No Data Available No Data Availa [...] No Data Availa ble No Data Available [id number] 2023-11-20 No Data Available No Data Available Medication List Documented (1159F) 1159F 2023-11-20 No Data Available No Data Cecilia ilable SBP < 130 (3074F) 3074F 2023-11-20 No Data Available No Data Available DBP 80-89 (3079F) 3079F 2023-11-20 No Data Available No Data Available No Data Available [id number] 2023-11-22 No Data Available No Data Available Medication List Documented (1159F) 1159F 2023-11-22 No Data Available No Data Cecilia ilable No Data Available [id number] 2024-01-09 No Data Available No Data Available Medication List Documented (1159F) 1159F 2024-01-09 No Data Available No Data Cecilia ilable Estab. patient 10-29min; 1 minor problem; add add modifier 95 for video, modifier 93 for phone [id number] 2024-02-20 No Data Available No Data Availa ble Medication List Documented (1159F) 1159F 2024-02-20 No Data Available No Data Cecilia ilable BMI obtained (3008F) 3008F 2024-02-20 No Data Availab le No Data Available Estab. patient 10-29min; 1 minor problem; add add modifier 95 for video, modifier 93 for phone [id number] 2024-03-04 No Data Available No Data Availa ble Estab. patient 20-29min; 1 stable chronic or 2 minor; add add modifier 95 for video, modifier 93 for phone [id number] 2024-04-26 No Data Available No Data Availa [...] 95 for video, modifier 93 for phone [id number] 2024-08-03 No Data Available No Data Availa ble Estab. patient 10-29min; 1 minor problem; add add modifier 95 for video, modifier 93 for phone [id number] 2024-09-02 No Data Available No Data Availa [...] 95 for video, modifier 93 for phone [id number] 2024-10-16 No Data Available No Data Availa ble SBP 130-139 (3075F) 3075F 2024-10-16 No Data Availabl e No Data Available DBP >=90 3080F 2024-10-16 No Data Available No Data Available Estab. patient 10-29min; 1 minor problem; add add modifier 95 for video, modifier 93 for phone [id number] 2024-11-16 No Data Available No Data Availa ble SBP >= 140 3077F 2024-11-16 No Data Available No Data Available DBP 80-89 (3079F) 3079F 2024-11-16 No Data Available No Data Available Pain Assessment - Pain Documented on a Pain Scale (1125F) 1125F 2024-11-16 No Data Available No Data Cecilia ilable Functional Status Functional Category Effective Dates ADLsAmbulating [...] orally BID PRN muscle spasms/pain #30 tablet [id number] New Tylenol Extra Strength 500 mg Tab 2 tablet orally q 6hrs prn pain/fever #30 tablet [id number] New Diclofenac Sodium 1 % Gel 4 grams topically to affected area 4 times per day PRN #100 gram [id number] New Lidocaine 5 % Oint apply thin film to affected area TID prn pain #50 gram [id number] New predniSONE 20 mg Tab Take 2 tablets twice daily for 3 days, 1 tablet twice daily for 2 days, and 1 tablet daily for 2 days. #18 tab [id number] plan of care and conservative measures for [...] low abd pain. Please remember to call [facility] [facility]. [facility] or disease education needs that may arise 06/09.UTI (urinary tract infection)Cunetz4410/11/2023eRx New Tylenol Extra Strength 500 mg Tab 2 tablet orally Q6hrs prn pain/fever #30 tablet BLj0cPj New Ondansetron 8 mg Tab Disintegrating 1 tablet orally every 8 hours as needed nausea #30 tablet JBt4xYr New Macrobid 100 mg Cap Take 1 [...] acute needs.Left acute suppurative otitis mediaSeasonal allergies 2024-11-16 13:40:17 Follow up plan for a cute symptoms: Stefany Hagen ANANTH-Nov 22, 2024, 4:30 PMCOPD exacerbationChronic back pain greater than 3 months durationBilateral sacroiliitisMuscle spasms of both lower extremitiesOpioid use Plan of Care Date of Service Plans [...] Documented (1125F)Continue to see PCP. [facility] for any acute or disease education needs that may arise.Takes Tramadol 50 mg BID and has for 1+ yearsSafetyRisk of sedationSending Narcanhas been taking clonazepam for 10+ yearssafetyrisk of sedationFor many years.Now at pain clinic in [facility], began seeing them on 12/07.On TramadolTizanindineGabapentinClonazepamTramadolTizanindineGabapentinClonazepa [...] Documented (1125F)Continue to see PCP. [facility] for any acute or disease education needs that may arise.Takes Tramadol 50 mg BID and has for 1+ yearsSafetyRisk of sedationSending Narcanhas been taking clonazepam for 10+ yearssafetyrisk of sedationFor many years.Now at pain clinic in [facility], began seeing them on 12/07.On TramadolTizanindineGabapentinClonazepamTramadolTizanindineGabapentinClonazepa [...] sedationFor many years.Now at pain clinic in [facility], began seeing them on 12/07.On KopvnifcBphytsdoauzRosimtxvtrQvrdmcaidp54/21/2023ontinues with pain, poor historian, unclear how much pain she is having today, appears to be active but ykmifzXtvmuzhoOpqfyjfcjdcTnrwumfcydPeahnnuxbe78/21/2023ontinues with pain, pls cont tx as prescribed, [...] + days. Inhaler puffer 4/ day for zzxpcgklehziaqc25/21/2023Very difficult to assess. Not a relieble historian, [...] + days. Inhaler puffer 4/ day for aoqarjqdwfjjklg42/21/2023Very difficult to assess. Not a relieble historian, [...] inhalers/nebs.We will F/U next week.02/10 stable has pbyajaycOwczbbtwMsdwjmssudxXfqxajhikaJdmzhjgtkc99/21/2023ontinues with pain, pls cont tx as prescribed, reports she was told that PT was not viable. Will investigate.02/10 has had this for years, will refer to neurologist, denies any bowel or bladder dysfunctionFor many years.Now at pain clinic in [facility], began seeing them on 12/07.On NlypccucMwjngkjpqvfQypbxplrneWhxmvinfjm15/21/2023ontinues with pain, poor historian, unclear how much pain she is having today, appears to be active but pyfgaf27/28 for many years will refer to neurologist [...] orally BID PRN muscle spasms/pain #30 tablet CDv4aWq New Tylenol Extra Strength 500 mg Tab 2 tablet orally q 6hrs prn pain/fever #30 tablet EUg5vWo New Diclofenac Sodium 1 % Gel 4 grams topically to affected area 4 times per day PRN #100 gram AAu0dFg New Lidocaine 5 % Oint apply thin film to affected area TID prn pain #50 gram QQf6qVu New predniSONE 20 mg Tab Take 2 tablets twice daily for 3 days, 1 tablet twice daily for 2 days, and 1 tablet daily for 2 days. #18 tab JGx7qncmqieq plan of care and conservative measures for [...] low abd pain. [facility]. Follow-[facility] with [...] tablet orally Q6hrs prn pain/fever #30 tablet DTk9kVq New Ondansetron 8 mg Tab Disintegrating 1 tablet orally every 8 hours as needed nausea #30 tablet BWs5tLl New Macrobid 100 mg Cap Take 1 [...] orally BID PRN muscle spasms/pain #30 tablet HPd0oEb New Tylenol Extra Strength 500 mg Tab 2 tablet orally q 6hrs prn pain/fever #30 tablet YCg2wDo New Diclofenac Sodium 1 % Gel 4 grams topically to affected area 4 times per day PRN #100 gram JUa9pRa New Lidocaine 5 % Oint apply thin film to affected area TID prn pain #50 gram GJw9wXj New predniSONE 20 mg Tab Take 2 tablets twice daily for 3 days, 1 tablet twice daily for 2 days, and 1 tablet daily for 2 days. #18 tab BNa0xtqiziza plan of care and conservative measures for [...] tablet orally Q6hrs prn pain/fever #30 tablet WBp6eCj New Ondansetron 8 mg Tab Disintegrating 1 tablet orally every 8 hours as needed nausea #30 tablet BEz8rVj New Macrobid 100 mg Cap Take 1 [...] orally BID PRN muscle spasms/pain #30 tablet YNz8wPp New Tylenol Extra Strength 500 mg Tab 2 tablet orally q 6hrs prn pain/fever #30 tablet RGi6fBx New Diclofenac Sodium 1 % Gel 4 grams topically to affected area 4 times per day PRN #100 gram HKc5bGw New Lidocaine 5 % Oint apply thin film to affected area TID prn pain #50 gram ZFx8qEe New predniSONE 20 mg Tab Take 2 tablets twice daily for 3 days, 1 tablet twice daily for 2 days, and 1 tablet daily for 2 days. #18 tab RLu2kgtmaerw plan of care and conservative measures for [...] tablet orally Q6hrs prn pain/fever #30 tablet VSt4nAm New Ondansetron 8 mg Tab Disintegrating 1 tablet orally every 8 hours as needed nausea #30 tablet RVf6dGt New Macrobid 100 mg Cap Take 1 tablet PO twice daily for 7 days. #14 tablet RFx10/19/23: Improved per pt, denies ss today. 11/20/23:Member describing dysuria and recurrent UTI symptomsStart bactrim DS BID x 5 daysEncouraged increased fluid intake, especially waterAPP f/u is scheduled for 11/21 regarding back symptoms, but can call back sooner for any new or worsened /8/24: Symptoms began 2 days ago on Tuesday. [...] orally BID PRN muscle spasms/pain #30 tablet NZo5ePm New Tylenol Extra Strength 500 mg Tab 2 tablet orally q 6hrs prn pain/fever #30 tablet GJl9xSz New Diclofenac Sodium 1 % Gel 4 grams topically to affected area 4 times per day PRN #100 gram UHx9qNs New Lidocaine 5 % Oint apply thin film to affected area TID prn pain #50 gram YMa4kXm New predniSONE 20 mg Tab Take 2 tablets twice daily for 3 days, 1 tablet twice daily for 2 days, and 1 tablet daily for 2 days. #18 tab XLx3qompaxcq plan of care and conservative measures for [...] orally BID PRN muscle spasms/pain #30 tablet QLm0vPc New Tylenol Extra Strength 500 mg Tab 2 tablet orally q 6hrs prn pain/fever #30 tablet SFb3pFa New Diclofenac Sodium 1 % Gel 4 grams topically to affected area 4 times per day PRN #100 gram CKf1oVm New Lidocaine 5 % Oint apply thin film to affected area TID prn pain #50 gram JSp4pTa New predniSONE 20 mg Tab Take 2 tablets twice daily for 3 days, 1 tablet twice daily for 2 days, and 1 tablet daily for 2 days. #18 tab SZm4tdilbjuj plan of care and conservative measures for [...] 45 tabs. Will refill rx, sent to [facility].When member to call: 1. If bp is elevated sbp>150; dbp>90 or symptomatic-h/a, dizziness, cp, sob. 2. if there is a fall 3. if BS >300 or BS<90 or symptomatic; i.e., dizzy, off balance , shaky, general weakness. 4. if UTI symptoms arise-urinary frequency, dysuria, low abd pain. [facility] Follow-up with [...] in each nostril twice daily #1 each LFu2Jhquth Promethazine-DM 6.25/15 mg/5ML Syrup 5 ml orally every 4-6 hours as needed for cough #200 ml JOs2Nqi use cool mist vaporizer/humidifier next to bed [...] 80-89 (3079F)Continue to see PCP. Follow-up with [facility] as needed for any acute or disease [...] 45 tabs. Will refill rx, sent to [facility].04/26/24: Tizanidine helps more than Flexeril. I last filled on 03/06/24 for 45 tabs, member requesting refill today, tolerating.Has been taking clonazepam for 10+ yearsDiscussed risk of sedationRx: Breo Elipta, Albuterol HFA PRN, Levalbuterol [facility] pulmonology follow up04/26/24: Saw her pulm today, she has URI symptoms. Has prescribed steroids but they do not agree with her stomach.03/04/24- Azelastine 0.1 % Solution Nasal use 2 sprays in each nostril twice daily #1 each QUj0Jpvlap Promethazine-DM 6.25/15 mg/5ML Syrup 5 ml orally every 4-6 hours as needed for cough #200 ml ADf8Fpt use cool mist vaporizer/humidifier next to bed [...] for phoneContinue to see PCP. Follow-up with [facility] as needed for any acute or disease education needs that may arise 06/09.08/03/24: Rx: Amoxicillin-Pot Clavulanate 875/125 mg Tab-Take 1 tablet PO twice daily for 7 days. (also treating URI) Advised to take Tylenol or ibuprofen. Rinse mouth with warm salt water. Follow up with a Dentist. [facility] for any new, worsening or continued symptoms.08/03/24: Rx: Amoxicillin-Pot Clavulanate 875/125 mg Tab-Take 1 tablet PO twice daily for 7 days (also treating dental abscess) Albuterol inhaler and nebs every 2 hrs as needed. Zyrtec (cetirizine) or Claritin (loratadine) or Benadryl daily. Drink hot tea with honey and lemon. Contact [facility] 06/09 for any new, worsening or continued symptoms.08/03/24: Rx: Docusate Sodium 100 mg Cap-1 capsule orally daily. Advised to increase fluids and fiber intake (eat prunes or prune juice daily). Take OTC MiraLAX, Senna-S or Dulcolax, Dulcolax suppository. [facility] for any new, worsening or continued symptoms. 14:33:54 Televideo 10-29min; 1 minor problem; add add modifier 95 for video, modifier 93 for phoneContinue to see PCP. [facility] for any acute or disease education needs that may arise 06/09.reviewed symptom management. Rest and push fluids. Tylenol prnOndansetron 8 mg Tab Disintegrating 1 tablet orally every 8 hours as needed nausea #20 tablet DLs4Xico for worsening symptoms. 15:03:15 Televideo 10-29min; 1 minor problem; add add modifier 95 for video, modifier 93 for phoneContinue to see PCP. [facility] for any acute or disease education needs that may arise 06/09.Advised Tylenol for pain. Increase clear fluids and rest. Do not stick anything in ears. Augmentin 875 BID x 7 days. Ceterizine 10 mg daily RF. CB is available 06/09 for acute needs.Avoid triggers. Use clean air filters. RF Ceterizine. CB is available 06/09 for acute needs. 13:40:17 Televideo 10-29min; 1 minor problem; add add modifier 95 for video, modifier 93 for phoneContinue to see PCP. Follow-up with [facility] as needed for any acute or disease education needs that may arise 06/09.11/16/24: Rx: predniSONE 20 mg Tab-2 tabs daily x5 days. Benzonatate 200 mg Cap-1 capsule orally 3 times per day PRN cough. Albuterol inhaler every 2 hrs and nebs every 4 hrs as needed. Zyrtec (cetirizine) or Claritin (loratadine) or Benadryl daily. Drink hot tea with honey and lemon. Contact [facility] 06/09 for any new, worsening or continued symptoms after taking antibiotics for 3-4 days.11/16/24: Refilled tiZANidine 4 mg Tab-1 tablet two tablets a day as neededTylenol for pain. Contact [facility] 06/09 for any new, worsening or continued symptoms. Goals Date Goal 2021-12-30 Remember to 2021-12-30 Call me if 2021-12-30 Keep it up 2023-02-10 continue medications as prescribed 2023-02-10 call if you feel ill , have any questions or concerns 2023-02-10 no new concerns, ebenezer whiteside refer to neurology Health Concerns Date Concern 2024-11-16 Patient/Guardian blas castano to visit via telehealth.Visit completed via:[ ] audio and video; [x] audio only 2024-11-16 Concerns for today's visit: congestionSummary: Language line used for this visit. Member reports congestion, sore throat, body aches, sneezing, cough, clear sputum, increased shortness of breath, nausea and stomach pain that started 5 days ago. Reports she has been exposed to COVID. Also reports pain in both legs due to her fibromyalgia. States she has burning sensation and stabbing pain. This is chronic pain that she take Tramadol that helps. Denies wheezing, fever, headache, injury or any other complications at this time. hospital plan administrator note reviewed.
== END 2024-12-17 08:15 | disposition home or self-care (01) ==
LOC: HO.XRAY 08:14
PROVIDERS: PCP Internal Medicine; Visit Provider Internal Medicine
DX: M25.551 Pain in right hip (principal); E78.5 Hyperlipidemia, unspecified; F33.0 Major depressive disorder, recurrent, mild; F41.1 Generalized anxiety disorder; N39.41 Urge incontinence; M79.7 Fibromyalgia; Z23 Encounter for immunization; Z79.899 Other long term (current) drug therapy; R03.0 Elevated blood-pressure reading, without diagnosis of hypertension
CPT/HCPCS: 73502; 90471; 90472; 90656; 90677; 96127; 99212

== ENCOUNTER 2024-12-17 08:14 | Outpatient (AMB) | payer OTHER, SELFPAY ==
[2024-12-17 08:21] VITALS: BP 144/70; PULSE 81; RESP 18; TEMP 36.2; O2SAT 100; BMI 24.7
--- NOTE | 2024-12-17 08:21 | MHC.PC.OV ---
Vital Signs 12/17/24 08:21 Height 5 ft Weight 126 lb 6 oz BMI 24.7 BP 144/70 H Blood Pressure Location Lt brachial Position Sitting Respiration 18 Pulse 81 Pulse Source Pulse Oximeter Temp 97.1 F Temp Source Temporal Artery Scan Pulse Oximetry (%) 100 Oxygen Delivery Method Room Air Intake Visit Reasons: depression White Mixing Operator Required: No Accompanied by: Self / Same As Patient Allergies naproxen Allergy (Intermediate, Verified 12/17/24 08:47) abdominal pain ibuprofen (From Motrin) Adverse Reaction (Mild, Verified 12/17/24 08:47) stomach pain Medication List - Last Reconciled 12/17/24 by Zoe Dillard MD aspirin 81 mg PO DAILY 90 days budesonide-formoterol 160-4.5 mcg/actuation (Symbicort) 2 puffs inhalation BID 30 days calcium carbonate-vitamin D3 250 mg-3.125 mcg (125 unit) (Oyster Shell Calcium-Vitamin D3) 1 tab PO BID 90 days cane quad cane cetirizine (All Day Allergy (cetirizine)) 10 mg PO DAILY PRN 90 days clonazepam 1 mg PO BEDTIME PRN 30 days diclofenac sodium 1% (Arthritis Pain (diclofenac)) 4 grams topical QID Grab bar As directed hydrocortisone 1% (Anti-Itch (hydrocortisone)) 1 appl topical BID PRN 30 days incontinence pad, liner, disp Use 1 pad three times a day incontinence pad, liner, disp Use 1 pad three times a day levalbuterol HCl 1.25 mg (3 mL) inhalation BID 30 days lidocaine 5% 2 patches topical DAILY 30 days linaclotide (Linzess) 145 mcg PO QAM nebulizers As directed ondansetron 4 mg PO Q8H 30 days [raised toilet seat As directed] roflumilast 500 mcg PO DAILY rosuvastatin 5 mg PO DAILY simethicone 180 mg PO QID 30 days tramadol 50 mg PO BID 30 days [wipes As directed] Tobacco use date assessed: 12/17/24 Fall risk assessment: No Falls in past year Last assessed Fall Risk: 12/17/24 Dental Screening Dental Screen Date: 12/17/24 Did you have a dental visit in the last 12 months?: Yes Did you have a dental problem in the last 6 months where you did not have access to dental care?: No Was dental information given to patient?: Patient has dentist HPI HPI Comments History of Present Illness Details The patient is a 74-year-old female presenting for a follow-up visit with a new complaint of right hip pain. She has a history of hyperlipidemia managed with rosuvastatin 5 mg, fibromyalgia managed with tramadol, muscle spasms, and also takes roflumilast and cimetidine. The patient denies any recent falls. She also has depression with anxiety and does not follow with Psychiatry. She has urge urinary incontinence well control with pad liners. [facility] Medical History (Updated 12/17/24 @ 09:00 by Zoe Dillard MD) Abdominal pain Allergies Fibromyalgia Sacroiliitis Physical exam Chest pain Blurry vision Abnormal chest x-ray Pre-op examination Emphysema of lung Thoracic back pain Muscle spasm Back pain Chronic restrictive lung disease Temporomandibular joint (TMJ) pain Anemia Osteopenia Postmenopausal Obese Chronic pain syndrome Hypovitaminosis D Depression with anxiety Surgical History H/O colonoscopy S/P FARRAH-BSO (total abdominal hysterectomy and bilateral salpingo-oophorectomy) Family History Father No problems noted. Mother Emphysema lung Sister Colon cancer Social History Housing: Apartment Alcohol intake: never Patient Tobacco Use Status: Former Tobacco user Tobacco use type: Cigarette e-Cigarette/Vaping Use: Never Used Second Hand Smoke Exposure: No Advance Directives Date on File: 01/12/22 service: No Current occupational status: unemployed Cognitive needs: Yes Hearing needs: No Vision needs: No Questionnaire Thrive Questionnaire Date Thrive assessed: 06/13/24 I am a: Patient What is your living situation today?: I have a steady place to live Within the past 12 months, did the food you bought not last and you didn't have the money to get more?: I choose not to answer this question Within the past 12 months, did you worry whether your food would run out before you got money to buy more?: I choose not to answer this question Do you have trouble paying for medicines?: No Do you have trouble getting transportation to medical appointments?: No Do you have trouble paying your heating and electricity bill?: No Do you have trouble taking care of your child, family member or friend?: Yes Do you have trouble with day-to-day activities such as bathing, preparing meals, shopping, managing finances, etc.?: Yes Are you currently unemployed and looking for a job?: No Are you interested in more education?: I choose not to answer this question Please select the resources that you would like help with: None Currently or been in a relationship where the following occur: I choose not to answer THRIVE Score: 0 AUDIT C Alcohol Use Questionnaire (AUDIT-C) 1. How often do you have a drink containing alcohol?: Never Total Score: 0 Score Reviewed/Action Taken: No KEZIA-7 AMB Questionnaire KEZIA-7 Date KEZIA - 7 assessed: 06/13/24 Feeling nervous, anxious, or on edge: 2 = More than half the days Not being able to stop or control worryin = More than half the days Worrying too much about different things: 1 = Several days Trouble relaxin = Nearly every day Being so restless that it is hard to sit still: 3 = Nearly every day Becoming easily annoyed or irritable: 0 = Not at all Feeling afraid as if something awful might happen: 0 = Not at all Total KEZIA-7 score (0-4 normal; 5-9 mild; 10-14 moderate; 15-21 severe): 11 Source: Developed by Drs. Jose Carlos Remy, Meagan Oviedo, Rob Belle and colleagues, with an educational stanley from [employer]. KEZIA-7 Assessment Billing KEZIA-7 Assessment Tool: KEZIA-7 Assessment 16060 Review of Systems Const All systems reviewed & are unremarkable except as noted in HPI and below Card Denies chest pain at rest, Denies chest pain with activity, Denies edema, Denies irregular heart rhythm, Denies claudication, Denies dyspnea, Denies dyspnea on exertion, Denies orthopnea, Denies paroxysmal nocturnal dyspnea and Denies slow heart rate Resp Denies cough, Denies dyspnea and Denies dyspnea on exertion GI Denies abdominal pain, Denies change in bowel habits, Denies excessive flatus, Denies nausea and Denies vomiting Physical exam (Primary Care) Vital Signs: Last Vital Signs Temp 97.1 F 12/17/24 08:21 Pulse 81 12/17/24 08:21 Resp 18 12/17/24 08:21 BP 144/70 H 12/17/24 08:21 Pulse Ox 100 12/17/24 08:21 Oxygen Delivery Method Room Air 12/17/24 08:21 BMI result Body Mass Index 24.7 Tobacco/Smoking Status: Tobacco use Status Tobacco use date assessed 12/17/24 12/17/24 08:31 Patient Tobacco Use Status Former Tobacco user 12/17/24 08:31 Tobacco use type Cigarette 12/17/24 08:31 e-Cigarette/Vaping Use Never Used 12/17/24 08:31 Thrive Assessment: Date of Thrive Assessment Date Thrive assessed 06/13/24 12/17/24 08:31 Currently or been in a relationship where the following occur: I choose not to answer Resp Effort & Inspection: normal respiratory effort Auscultation: clear to auscultation bilaterally Cardio Jugular venous distension: no JVD Rate: regular rate Rhythm: regular rhythm Heart sounds: S1 normal heart sound present and S2 normal heart sound present Extrem General: Yes full ROM Office Procedures Flu Questionnaire Does the patient have a severe egg allergy?: No Does the patient have severe life threatening allergies?: No Does the patient have a fever or illness today?: No Has the patient ever had Guillain-Clayton Syndrome?: No Has the patient ever had any past reaction to a flu shot?: No Immunizations Fluarix [id number] (PF) 45 mcg (15 mcg x 3)/0.5 mL IM syringe Performing Provider: Zoe Dillard MD Performing Location: [facility] Administered by: Vijaya Greenberg CMA on 12/17/24 09:10 Dose Route Admin Location Dispensed Lot Number Expiration Date NDC Biomedical Engineer 0.5 mL IM Left Deltoid 0.5 mL [id number] 08/13/25 09617-329-96 [employer] VIS Given Date VIS Provided VIS Publication Date 12/17/24 Single Vaccine 24 Eligibility Eligibility Date Funding Source Not [facility] Eligible 12/17/24 Private pneumoc 20-layla conj-dip cr(PF) 0.5 mL IM syringe Performing Provider: [facility]oe Dillard MD [facility] Administered by: Vijaya Greenberg CMA on 12/17/24 09:10 Dose Route Admin Location Dispensed Lot Number Expiration Date [facility] Biomedical Engineer 0.5 mL IM Left Deltoid 0.5 mL [id number] 10/15/25 9920-5978-75 [employer]/P[employer] Total Dispensed Waste 0.5 mL 0 % VIS Given Date VIS Provided VIS Publication Date 12/17/24 Single Vaccine 24 Eligibility Eligibility Date Funding Source Not [facility] Eligible 12/17/24 Private Coding Level of Care Code Est Pt Level 4 (31367) Diagnoses Mild recurrent major depression F33.0 KEZIA (generalized anxiety disorder) F41.1 Urge urinary incontinence N39.41 Right hip pain M25.551 Fibromyalgia M79.7 Additional Codes KEZIA-7 Assessment Billing - KEZIA-7 Assessment Tool: KEZIA-7 Assessment 22397 ([id number]) Time Spent (min) 23 Assessment & Plan Assessment & Plan (1) Mild recurrent major depression: Code(s): F33.0 - Major depressive disorder, recurrent, mild Category: Medical (2) KEZIA (generalized anxiety disorder): Code(s): F41.1 - Generalized anxiety disorder Category: Medical (3) Urge urinary incontinence: Code(s): N39.41 - Urge incontinence Category: Medical (4) Right hip pain: Code(s): M25.551 - Pain in right hip Category: Medical (5) Fibromyalgia: Comment: Tried and failed: Gabapentin, Flexeril, Lyrica Amitriptyline is contraindicated in the setting of tramadol use and her history of coronary artery disease Code(s): M79.7 - Fibromyalgia Category: Medical Plan Plan 1. Elevated Blood Pressure Reading The patient's blood pressure was 144/70 mmHg, which is considered borderline. A follow-up visit is scheduled in 3 weeks to recheck the blood pressure. 2. Pain In Right Hip An X-ray of the right hip will be ordered to investigate the patient's complaint of pain. 3. Depression with anxiety Was recommended to restart Behavioral Health. 4. Fibromyalgia Continue tramadol and tizanidine as needed. 5. Urge urinary incontinence Continue pad liners as needed. Orders: Orders Influenza [id number] Immunization Today Z23 - Encounter for immunization Pneumococcal 20 Immunization Today Z23 - Encounter for immunization XR hip RT min 2V Today M25.551 - Pain in right hip Medications: New tizanidine 4 mg PO Q8H PRN 90 tabs 0RF muscle spasticity 30 days
== END 2024-12-17 09:07 | disposition home or self-care (01) ==
LOC: HO.HMCH 08:15
PROVIDERS: PCP Internal Medicine; Visit Provider Internal Medicine
DX: F33.0 Major depressive disorder, recurrent, mild (principal); F41.1 Generalized anxiety disorder; N39.41 Urge incontinence; M25.551 Pain in right hip; M79.7 Fibromyalgia; Z23 Encounter for immunization

== ENCOUNTER → 2024-12-17 09:23 | Outpatient (BNV) | payer OTHER, SELFPAY | PROVIDERS: PCP Internal Medicine; Visit Provider Radiology Diagnostic Radiology | DX: M25.551 Pain in right hip (principal) | CPT/HCPCS: 73502 ==

== ENCOUNTER 2025-01-01 06:19 | Outpatient (REF) | payer OTHER, SELFPAY ==
--- NOTE | ~2025-01-01 | FL_ITS ---
EXAMINATION: FL GUIDANCE ONLY HISTORY: M47.816 - Spondylosis without myelopathy or radiculopathy, lumbar region COMPARISON: None available. TECHNIQUE: Fluoroscopy time: 43 seconds. Cumulative Dose: 5.30 mGy. DAP: 048.70 mGycm2 Images: 12. FINDINGS: Fluoroscopic spot films of the lumbar spine demonstrate needles and contrast material in the regions of the bilateral L3-4, L4-5, and L5-S1 facet joints. FL/FL guidance in treatment room IMPRESSION: Fluoroscopy during procedure. Please see procedure report for additional information. Electronically signed by: Jose Carlos Bai MD 01/02/2025 07:47 AM [facility]
== END 2025-01-01 06:20 | disposition home or self-care (01) ==
LOC: CF 06:19
PROVIDERS: Visit Provider Anesthesiology
DX: M47.816 Spondylosis without myelopathy or radiculopathy, lumbar region (principal)
CPT/HCPCS: 64493; 64494; 64495; J2003; J2795; Q9967

== ENCOUNTER 2025-01-01 08:20 | Outpatient (AMB) | payer OTHER, SELFPAY ==
[2025-01-01 08:21] VITALS: BP 118/61; PULSE 79; RESP 16; O2SAT 99; BMI 24.6
--- NOTE | 2025-01-01 08:21 | MHC.OFFVIS ---
Vital Signs 01/01/25 08:21 01/01/25 08:54 Height 5 ft Weight 126 lb BMI 24.6 BP 118/61 133/75 Blood Pressure Location Lt brachial Lt brachial Position Sitting Sitting Respiration 16 16 Pulse 79 71 Pulse Source Pulse Oximeter Pulse Oximeter Pulse Oximetry (%) 99 97 Oxygen Delivery Method Room Air Room Air Intake Visit Reasons: Bilateral Diagnostic L3-L4 DR L5 MBB Allergies naproxen Allergy (Intermediate, Verified 01/03/25 09:56) abdominal pain ibuprofen (From Motrin) Adverse Reaction (Mild, Verified 01/03/25 09:56) stomach pain PFSH Medical History Abdominal pain Allergies Fibromyalgia Sacroiliitis Physical exam Chest pain Blurry vision Abnormal chest x-ray Pre-op examination Emphysema of lung Thoracic back pain Muscle spasm Back pain Chronic restrictive lung disease Temporomandibular joint (TMJ) pain Anemia Osteopenia Postmenopausal Obese Chronic pain syndrome Hypovitaminosis D Depression with anxiety Surgical History H/O colonoscopy S/P FARRAH-BSO (total abdominal hysterectomy and bilateral salpingo-oophorectomy) Family History Father No problems noted. Mother Emphysema lung Sister Colon cancer Social History Housing: Apartment Alcohol intake: never Patient Tobacco Use Status: Former Tobacco user Tobacco use type: Cigarette e-Cigarette/Vaping Use: Never Used Second Hand Smoke Exposure: No Advance Directives Date on File: 01/12/22 service: No Current occupational status: unemployed Cognitive needs: Yes Hearing needs: No Vision needs: No Physical Exam Vital Signs: Last Vital Signs Pulse 71 01/01/25 08:54 Resp 16 01/01/25 08:54 BP 133/75 01/01/25 08:54 Pulse Ox 97 01/01/25 08:54 Oxygen Delivery Method Room Air 01/01/25 08:54 BMI result Body Mass Index 24.6 Assessment & Plan Assessment & Plan (1) Spondylosis of lumbar region without myelopathy or radiculopathy: Code(s): M47.816 - Spondylosis without myelopathy or radiculopathy, lumbar region Category: Medical Plan Diagnostic medial branch block L3,L4 dorsal ramus L5 bilateral.? ? ?Informed consent was explained to the patient. All questions were explained and? answered.? The patient was taken inside the operating room where she was positioned prone on the operating table. Time-out was performed delineating correct site, side, the nature of the procedure, patient's allergy, . All operating room staff was participating in OR time-out procedure. ? ? The lower back was prepped with ChloraPrep and draped with sterile utility towels.? C-arm was brought over the operating field and sq picture of L4-, L5 vertebra and S1 AREA were delineated on the screen.? Point of interest were delineated as confluence of superior articular process of L4 and L5 vertebra bilaterally with corresponding transverse processes as well as confluence of the sacral alae bilaterally with superior articular process of S1.? The projection of the point of interest to the skin were injected with the small amount of local anesthetic lidocaine 2% mixed with ropivacaine 0.5% 1-1 approximately 1 cc.? After that 22 gauge 3.5 inch spinal needle was driven sequentially to the points of interest in tunnel vision fashion. After needles gently contacted the bone at the point of interests the needle was injected with small amount of the contrast.? The injection of the contrast did not demonstrate any intravascular or intrathecal spread of the contrast.? After that injection of the? ropivacaine 0.5%-1cc was performed at each needle location.?After that the needles were removed and Bandaids were applied. Orders: Orders FL guidance in treatment room 01/01/25 M47.816 - Spondylosis without myelopathy or radiculopathy, lumbar region Coding Level of Care Code Procedure Only Diagnoses Spondylosis of lumbar region without myelopathy or radiculopathy M47.816
[2025-01-01 08:54] VITALS: BP 133/75; PULSE 71; RESP 16; O2SAT 97
== END 2025-01-01 08:56 | disposition home or self-care (01) ==
LOC: HO.PMCPRC 08:20
PROVIDERS: PCP Internal Medicine; Visit Provider Anesthesiology
DX: M47.816 Spondylosis without myelopathy or radiculopathy, lumbar region (principal)
CPT/HCPCS: 64493; 64494; 64495

== ENCOUNTER → 2025-01-03 09:23 | Outpatient (BNVA) | payer OTHER, SELFPAY | PROVIDERS: PCP Internal Medicine | DX: M54.51 Vertebrogenic low back pain (principal); M47.816 Spondylosis without myelopathy or radiculopathy, lumbar region; G89.4 Chronic pain syndrome; M79.7 Fibromyalgia; Z01.30 Encounter for examination of blood pressure without abnormal findings | CPT/HCPCS: 99211; 99212 ==

== ENCOUNTER 2025-01-03 09:39 | Outpatient (AMB) | payer OTHER, SELFPAY ==
--- NOTE | 2025-01-03 09:56 | A.OFFVIS_ITS ---
Vital Signs 01/03/25 09:59 Height 5 ft Weight 119 lb BMI 23.2 BP 139/75 Blood Pressure Location Lt brachial Position Sitting Respiration 16 Pulse 85 Pulse Source Pulse Oximeter Pulse Oximetry (%) 99 Oxygen Delivery Method Room Air Intake Visit Reasons: S/P Bilateral Diagnostic L3-L4 DR L5 MBB Temporary Help Agency Referral Clerk Required: Yes Temporary Help Agency Referral Clerk Services: Temporary Help Agency Referral Clerk Offered & Declined Accompanied by: Daughter Allergies naproxen Allergy (Intermediate, Verified 01/03/25 09:56) abdominal pain ibuprofen (From Motrin) Adverse Reaction (Mild, Verified 01/03/25 09:56) stomach pain HPI Comments Details: Laura is back in my office after diagnostic medial branch blocks L3-L4 L5 bilateral.. She reports that after the injection she has a headache. However her headache is not positional. She reports that her headache is aggravated when she is positioning herself lying flat. Therefore dural puncture is very unlikely. I personally evaluated the images of injection as above and did not find any vascular or intrathecal spread of the contrast. She also reports numbness getting stronger after the procedure. It is unlikely related to the injections, by now the action of the local anesthetics which were injected without any steroids would be gone. She does not specifically report any significant radiculopathic symptoms. However I decided to send her for urgent MRI. We will expedite the procedure. I will see the patient immediately after MRI. Prior: She is suffering from lower back pain. She reports pain across the lower back with radiation into the bilateral lower extremities to the thighs lower legs and sometimes into the feet. She went for the MRI of the lumbar spine results of the MRI dictated as below. She reports pain aggravation with prolonged sitting as well as pain aggravation was walking. She reports that flexing forward and flexing backwards aggravate her pain. She has tremendous difficulty lifting objects from the floor. In the past she was treated in this office by BILL Edwards and , who performed left sacroiliac joint injection as well as hip steroid injection. She reports that none of those procedures her pain. Attention today was attracted to the MRI in 2021 which demonstrated Modic type changes, there is no significant neural foraminal stenosis or compression of the nerve roots on the MRI there is advanced disc degeneration. There is advanced spondylosis of the lumbar spine. [facility] Medical History Abdominal pain Allergies Fibromyalgia Sacroiliitis Physical exam Chest pain Blurry vision Abnormal chest x-ray Pre-op examination Emphysema of lung Thoracic back pain Muscle spasm Back pain Chronic restrictive lung disease Temporomandibular joint (TMJ) pain Anemia Osteopenia Postmenopausal Obese Chronic pain syndrome Hypovitaminosis D Depression with anxiety Surgical History H/O colonoscopy S/P [id number] (total abdominal hysterectomy and bilateral salpingo-oophorectomy) Family History Father No problems noted. Mother Emphysema lung Sister Colon cancer Social History Housing: Apartment Alcohol intake: never Patient Tobacco Use Status: Former Tobacco user Tobacco use type: Cigarette e-Cigarette/Vaping Use: Never Used Second Hand Smoke Exposure: No Advance Directives Date on File: 01/12/22 service: No Current occupational status: unemployed Cognitive needs: Yes Hearing needs: No Vision needs: No Review of Systems Const All systems reviewed & are unremarkable except as noted in HPI and below ENT Reports Normal hearing present Neuro Reports Normal hearing present, Denies Abnormal speech present, Denies confusion and Denies Sensory deficit (Neuro) Psych Denies confusion Physical Exam Vital Signs: Last Vital Signs Pulse 85 01/03/25 09:59 Resp 16 01/03/25 09:59 BP 139/75 01/03/25 09:59 Pulse Ox 99 01/03/25 09:59 Oxygen Delivery Method Room Air 01/03/25 09:59 BMI result Body Mass Index 23.2 Const General: no acute distress; No confusion Orientation/consciousness: patient oriented x3 and No confusion Eyes General: appearance normal, both eyes and all related structures Pupils: Equal, round and reactive pupils present EOM: EOMs intact bilaterally Neck Neck: Yes full ROM Chest Chest palpation & inspection: normal inspection of the chest Resp Effort & Inspection: normal respiratory effort, able to speak in complete sentences, normal respiratory pattern, no audible wheezes and no cough Cardio Jugular venous distension: no JVD GI Inspection: Yes normal to inspection Back/Spine/Pelvis Other: Flexing forward and flexing backwards aggravate her pain. Flexing backwards make her pain aggravated more than flexing forward. Aram test is positive bilaterally, Gaenslen test is positive bilaterally, loading test is positive bilaterally there is severe tenderness on palpation in projection of bilateral paraspinal region of the most lower portion of the lumbar spine. Denies Valsalva maneuver aggravate her pain. Neuro General: patient oriented x3, gait normal and No confusion Cranial nerves: Yes CN's II-XII intact bilaterally, Yes Equal, round and reactive pupils present, Yes Normal hearing present and Yes Ability to bilaterally elevate shoulders present Speech: No Abnormal speech present Gait exam (Neuro): Normal gait present Motor exam (neuro): 5/5 motor strength present throughout Sensory Exam: No Sensory deficit (Neuro) Extrem General: No pedal edema Psych Speech and movement: Normal speech and movement present Affect: normal affect Attitude: cooperative Thought process: Normal thought process present Thought content: Normal thought content present Insight: Good insight present (Psych) Judgement: Good judgement present (Psych) Assessment & Plan Assessment & Plan (1) Vertebrogenic low back pain: Code(s): M54.51 - Vertebrogenic low back pain Category: Medical (2) Spondylosis of lumbar region without myelopathy or radiculopathy: Code(s): M47.816 - Spondylosis without myelopathy or radiculopathy, lumbar region Category: Medical (3) Chronic pain syndrome: Code(s): G89.4 - Chronic pain syndrome Category: Medical Plan This patient's pain is multifactorial in nature. On physical exam there is significant sacroiliac joint symptomatology including positive Aram's and positive Gaenslen test bilaterally. There is also prominent loading test on physical exam and severe palpation tenderness in the most lower portion of the lumbar spine. She received sacroiliac joint steroid injections and left hip steroid injection in the past without significant improvement. On the MRI from 2021 there are Modic type 1 changes most significant at L4-5. Diagnostic medial branch block resulted in very short less than 50% pain alleviation, however patient reported multiple side effects after the injection. I will send her to the urgent MRI of the lumbar spine. Unlikely any intravascular or any intrathecal injection of the medication. Besides the medication was prese rvative-free local anesthetic alone which would not affect any neural or vascular structures. Orders: Orders MR lumbar spine wo con Today M54.16 - Radiculopathy, lumbar region Coding Level of Care Code Est Pt Level 3 (70117) Diagnoses Vertebrogenic low back pain M54.51 Spondylosis of lumbar region without myelopathy or radiculopathy M47.816 Chronic pain syndrome G89.4
[2025-01-03 09:59] VITALS: BP 139/75; PULSE 85; RESP 16; O2SAT 99; BMI 23.2
--- OUTSIDE RECORDS SUMMARY | 2025-01-03 13:38 | XMS_ITS ---
Author Name Veena ODOM, MRS. Deal Address [address] [place] [address] Phone [phone] [facility] Team Providers Care Detonator Assembler Name Role Phone Toyin Curiel Unavailable [phone] Colette Esteves Unavailable [phone] Princess Kearns Unavailable [phone] SUSAN IBARRA Unavailable [phone] Unavailable Unavailable [phone] Reason for Referral Not Available Allergies, adverse [...] on days 2-5 2023-08-24 2024-03-04 Polymyxin B-Trimethoprim 20695-1.1 UNIT/ML-% Solution Ophthalmic 1 drop ophthalmically into [...] MOUTH TWICE DAILY 2024-04-10 No Data Available Ienziuwv-Pxfuzphmf-ZC 3.5-61455-4 Suspension SHAKE LIQUID AND INSTILL 4 DROPS [...] No Data Available Cetirizine 10 mg Tab TAKE 1 TABLET BY MO UTH DAILY 2024-08-03 No Data Available Calcium + D3 [...] tablet orally Q6hrs prn pain/fever #30 tablet YIq0gWe New Ondansetron 8 mg Tab Disintegrating 1 tablet orally every 8 hours as needed nausea #30 tablet BSs4fGi New Macrobid 100 mg Cap Take 1 tablet PO twice daily for 7 days. #14 tablet RFx10/19/23: Improved per pt, denies ss today. 11/20/23:Member describing dysuria and recurrent UTI symptomsStart bactrim DS BID x 5 daysEncouraged increased fluid intake, especially waterAPP f/u is scheduled for 11/21 regarding back symptoms, but can call back sooner for any new or worsened qgotxdvx31/8/24: Symptoms began 2 days ago on Tuesday. [...] in each nostril twice daily #1 each JXq2Gmevqs Promethazine-DM 6.25/15 mg/5ML Syrup 5 ml orally every 4-6 hours as needed for cough #200 ml NHe8Tnz use cool mist vaporizer/humidifier next to bed [...] + days. Inhaler puffer 4/ day for alehqmysmpiwpxo49/21/2023Ve ry difficult to assess. Not a relieble [...] Rx: Breo Elipta, Albuterol HFA PRN, Levalbuterol [facility] follow up04/26/24: Saw her [...] 45 tabs. Will refill rx, sent to [facility].04/26/24: Tizanidine helps more than Flexeril. I last filled on 03/06/24 for 45 tabs, member requesting refill today, tolerating.11/16/24: Refilled tiZANidine 4 mg Tab-1 tablet two tablets a day as neededTylenol for pain. Contact [facility] 06/09 for any new, worsening or continued symptoms. Dental abscess and pain Active 2024-08-03 N/A 0 08/03/24: Rx: Amoxicillin-Pot Clavulanate 875/125 mg Tab-Take 1 tablet PO twice daily for 7 days. (also treating URI) Advised to take Tylenol or ibuprofen. Rinse mouth with warm salt water. Follow [facility] with [facility] for any new, worsening or continued symptoms. URI (upper respiratory infection) Active 2024-08-03 N/A 08/03/24: Rx: Amoxicillin-Pot Clavulanate 875/125 mg Tab-Take 1 tablet PO twice daily for 7 days (also treating dental abscess) Albuterol inhaler and nebs every 2 hrs as needed. Zyrtec (cetirizine) or Claritin (loratadine) or Benadryl daily. Drink hot tea with honey and lemon. [facility] for any new, worsening or continued symptoms. Constipation Active 2024-08-03 N/A 08/03/24: Rx : Docusate Sodium 100 mg Cap-1 capsule orally daily. Advised to increase fluids and fiber intake (eat prunes or prune juice daily). Take OTC MiraLAX, Senna-S or Dulcolax, Dulcolax suppository. [facility]/09 for any new, worsening or continued [...] hot tea with honey and lemon. Contact [facility] 06/09 for any new, worsening or continued symptoms after taking antibiotics for 3-4 days. Encounters Encounters Type Facility Date of Service Diagnosis/Co mplaint New patient,40-59min; chronic exacerbation, 2 stable chronic or 1 acute illness add add modifier 95 for video (do not use for phone, instead use 90315-86) [facility]21 Opioid dependence, uncomplicatedLong term (current) use of opiate analgesicSedative, hypnotic or anxiolytic dependence, uncomplicatedDorsalgia, unspecifiedSciatica, unspecified sideSacroiliitis, not elsewhere classified New patient,40-59min; chronic exacerbation, 2 stable chronic or 1 acute illness add add modifier 95 for video (do not use for phone, instead use 73880-20) [facility] New patient,40-59min; chronic exacerbation, 2 stable chronic or 1 acute illness add add modifier 95 for video (do not use for phone, instead use 39020-28) [facility] New patient,40-59min; chronic exacerbation, 2 stable chronic or 1 acute illness add add modifier 95 for video (do not use for phone, instead use 16723-40) [facility] New patient,40-59min; chronic exacerbation, 2 stable chronic or 1 acute illness add add modifier 95 for video (do not use for phone, instead use 51598-40) [facility]20[place] New patient,40-59min; chronic exacerbation, 2 stable chronic or 1 acute illness add add modifier 95 for video (do not use for phone, instead use 37387-79) [facility]20[place] New patient,40-59min; chronic exacerbation, 2 stable chronic or 1 acute illness add add modifier 95 for video (do not use for phone, instead use 15085-78) [facility]20[place] New patient,40-59min; chronic exacerbation, 2 stable chronic or 1 acute illness add add modifier 95 for video (do not use for phone, instead use 66734-05) [facility]20[place] New patient,40-59min; chronic exacerbation, 2 stable chronic or 1 acute illness add add modifier 95 for video (do not use for phone, instead use 73815-16) [facility]/20[place] Estab. patient 30-39min; chronic exacerbation, 2 stable chronic or 1 acute illness add add modifier 95 for video, (do not use for phone, instead use 32658-59) [facility] 01/26/2023 Opioid dependence, uncomplicatedLong term (current) use of opiate analgesicSedative, hypnotic or anxiolytic dependence, uncomplicatedDorsalgia, unspecifiedSciatica, unspecified sideSacroiliitis, not elsewhere classifiedChronic obstructive pulmonary disease, unspecifiedCough, unspecified Estab. patient 30-39min; chronic exacerbation, 2 stable chronic or 1 acute illness add add modifier 95 for video, (do not use for phone, instead use 86627-61) [facility]26/20[place] Estab. patient 30-39min; chronic exacerbation, 2 stable chronic or 1 acute illness add add modifier 95 for video, (do not use for phone, instead use 01984-98) [facility] 01[place]26/2023 Estab. patient 30-39min; chronic exacerbation, 2 stable chronic or 1 acute illness add add modifier 95 for video, (do not use for phone, instead use 02500-27) [facility]26/2023 Estab. patient 30-39min; chronic exacerbation, 2 stable chronic or 1 acute illness add add modifier 95 for video, (do not use for phone, instead use 62102-08) [facility]26/20[place] Estab. patient 30-39min; chronic exacerbation, 2 stable chronic or 1 acute illness add add modifier 95 for video, (do not use for phone, instead use 09851-46) [facility] 01[place]26/2023 Estab. patient 30-39min; chronic exacerbation, 2 stable chronic or 1 acute illness add add modifier 95 for video, (do not use for phone, instead use 92312-24) [facility]26/2023 Estab. patient 30-39min; chronic exacerbation, 2 stable chronic or 1 acute illness add add modifier 95 for video, (do not use for phone, instead use 17167-87) [facility]26/2023 Estab. patient 30-39min; chronic exacerbation, 2 stable chronic or 1 acute illness add add modifier 95 for video, (do not use for phone, instead use 92455-28) [facility] 01[place]26/2023 Estab. patient 30-39min; chronic exacerbation, 2 stable chronic or 1 acute illness add add modifier 95 for video, (do not use for phone, instead use 21058-39) [facility] 01/26/2023 Estab. patient 30-39min; chronic exacerbation, 2 stable chronic or 1 acute illness add add modifier 95 for video, (do not use for phone, instead use 69230-74) [facility] 02[place]03/2023 Dorsalgia, unspecifiedSciati ca, unspecified sideSacroiliitis, not elsewhere classifiedChronic obstructive pulmonary disease, unspecifiedLong term (current) use of opiate analgesicCough, unspecifiedOther nursing home (current) drug therapy Estab. patient 30-39min; chronic exacerbation, 2 stable chronic or 1 acute illness add add modifier 95 for video, (do not use for phone, instead use 39595-54) [facility] 02[place]03/2023 Estab. patient 30-39min; chronic exacerbation, 2 stable chronic or 1 acute illness add add modifier 95 for video, (do not use for phone, instead use 75037-16) [facility] 02[place]03/2023 Estab. patient 30-39min; chronic exacerbation, 2 stable chronic or 1 acute illness add add modifier 95 for video, (do not use for phone, instead use 34266-00) [facility]20[place] Estab. patient 30-39min; chronic exacerbation, 2 stable chronic or 1 acute illness add add modifier 95 for video, (do not use for phone, instead use 17950-36) [facility] 02[place]20[place] Estab. patient 30-39min; chronic exacerbation, 2 stable chronic or 1 acute illness add add modifier 95 for video, (do not use for phone, instead use 83660-66) [facility]20[place] Estab. patient 30-39min; chronic exacerbation, 2 stable chronic or 1 acute illness add add modifier 95 for video, (do not use for phone, instead use 23579-57) [facility]20[place] Estab. patient 30-39min; chronic exacerbation, 2 stable chronic or 1 acute illness add add modifier 95 for video, (do not use for phone, instead use 89085-69) [facility]2023 No Data Available [facility]2023 Cough, unspecifiedSacroiliit is, not elsewhere classifiedDorsalgia, unspecifiedSciatica, unspecified side No Data Available [facility] 02[place]10[place]2023 No Data Available [facility]2023 No Data Available [facility]2023 Dorsalgia, unspecifiedOther chronic painSacroiliitis, not elsewhere classifiedOther muscle spasmOpioid use, unspecified, uncomplicated No Data Available [facility] 08[place]2023 No Data Available [facility]2023 Acute upper respiratory infection, unspecified No Data Available [facility] 08[place]2023 No Data Available [facility]20[place] No Data Available [facility] 09[place]/2023 Acute upper respiratory infection, unspecifiedOther problems related to medical facilities and other health care No Data Available [facility]/2023 Urinary tract infection, sit e not specifiedNausea No Data Available [facility]/2023 No Data Available [facility]20[place] Estab. patient 30-39min; chronic exacerbation, 2 stable chronic or 1 acute illness add add modifier 95 for video, (do not use for phone, instead use 41105-79) [facility] 10[place]19/2023 Dorsalgia, unspecifiedOther chronic painSacroiliitis, not elsewhere classifiedOther nursing home (current) drug therapyOther muscle spasmOpioid use, unspecified, uncomplicatedChronic obstructive pulmonary disease, unspecifiedOther problems related to medical facilities and other health careUrinary tract infection, site not specifiedNauseaPersonal history of nicotine dependence Estab. patient 30-39min; chronic exacerbation, 2 stable chronic or 1 acute illness add add modifier 95 for video, (do not use for phone, instead use 86572-43) [facility]19[place]20[place] Estab. patient 30-39min; chronic exacerbation, 2 stable chronic or 1 acute illness add add modifier 95 for video, (do not use for phone, instead use 20221-04) [facility] 10[place]19/2023 Estab. patient 30-39min; chronic exacerbation, 2 stable chronic or 1 acute illness add add modifier 95 for video, (do not use for phone, instead use 62829-84) [facility] 10[place]19/2023 Estab. patient 30-39min; chronic exacerbation, 2 stable chronic or 1 acute illness add add modifier 95 for video, (do not use for phone, instead use 56161-23) [facility] 10[place]19/2023 Estab. patient 30-39min; chronic exacerbation, 2 stable chronic or 1 acute illness add add modifier 95 for video, (do not use for phone, instead use 15468-47) [facility] 10[place]19/2023 Estab. patient 30-39min; chronic exacerbation, 2 stable chronic or 1 acute illness add add modifier 95 for video, (do not use for phone, instead use 58658-37) [facility] 10[place]19/2023 Estab. patient 30-39min; chronic exacerbation, 2 stable chronic or 1 acute illness add add modifier 95 for video, (do not use for phone, instead use 60087-90) [facility]19[place] Estab. patient 30-39min; chronic exacerbation, 2 stable chronic or 1 acute illness add add modifier 95 for video, (do not use for phone, instead use 72524-06) [facility] 10[place]19[place]20[place] Estab. patient 30-39min; chronic exacerbation, 2 stable chronic or 1 acute illness add add modifier 95 for video, (do not use for phone, instead use 18675-95) [facility] 10[place]19[place] No Data Available [facility]20[place] Sacroiliitis, not elsewhere classifiedDorsalgia, unspecifiedOther chronic painOther muscle spasmOpioid use, unspecified, uncomplicatedUrinary tract infection, site not specifiedNausea No Data Available [facility]2023 No Data Available [facility]20[place] No Data Available [facility] [place]20[place] No Data Available [facility]2023 Dorsalgia, unspecifiedOther chronic painSacroiliitis, not elsewhere classifiedOther muscle spasmOpioid use, unspecified, uncomplicatedUrinary tract infection, site not specifiedNauseaOther problems related to medical facilities and other health care No Data Available [facility] 11/22/2023 No Data Available [facility] 01/09/2024 Dorsalgia, unspecifiedOther problems related to medical facilities and other health careOther chronic painSacroiliitis, not elsewhere classifiedOther muscle spasmOpioid use, unspecified, uncomplicated No Data Available [facility] 01[place]09/20[place] Estab. patient 10-29min; 1 minor problem; add add modifier 95 for video, modifier 93 for phone [facility] 02/20/2024 Chronic obstructive pulmonar [...] elsewhere classifiedOther muscle spasmOpioid use, unspecified, uncomplicatedOther nursing home (current) drug therapyChronic obstructive pulmonary disease, unspecifiedAcute [...] 95 for video, modifier 93 for phone [facility] [place] Estab. patient 20-29min; 1 stable chronic or 2 minor; add add modifier 95 for video, modifier 93 for phone [facility] [place]/26/20[place] Estab. patient 10-29min; 1 minor problem; add add modifier 95 for video, modifier 93 for phone [facility] [place] 08/03/2024 Periapical abscess without sinusOther specified disorders of teeth and supporting structuresAcute upper respiratory infection, unspecifiedConstipation, unspecified Estab. patient 10-29min; 1 minor problem; add add modifier 95 for video, modifier 93 for phone [facility] [place] 09/02/2024 Acute upper respiratory infection, unspecified Estab. patient 10-29min; 1 minor problem; add add modifier 95 for video, modifier 93 for phone [facility] [place] 09/02/20[place] Estab. patient 10-29min; 1 minor problem; add add modifier 95 for video, modifier 93 for phone [facility] [place] 09/02/20[place] Estab. patient 10-29min; 1 minor problem; add add modifier 95 for video, modifier 93 for phone [facility] [place] 09/02/20[place] Estab. patient 10-29min; 1 minor problem; add add modifier 95 for video, modifier 93 for phone [facility] [place] 10/16/2024 Acute suppr otitis media w/o spon rupt ear drum, left earOther seasonal allergic rhinitis Estab. patient 10-29min; 1 minor problem; add add modifier 95 for video, modifier 93 for phone [facility] [place] 10/16/2024 Estab. patient 10-29min; 1 minor problem; add add modifier 95 for video, modifier 93 for phone [facility] [place] 10/16/2024 Estab. patient 10-29min; 1 minor problem; add add modifier 95 for video, modifier 93 for phone [facility] [place] 11/16/2024 Chronic obstructive pulmonar y disease with (acute) exacerbationSacroiliitis, not elsewhere classifiedOther muscle spasmDorsalgia, unspecifiedOther chronic painOpioid use, unspecified, uncomplicated Estab. patient 10-29min; 1 minor problem; add add modifier 95 for video, modifier 93 for phone [facility] [place]16/20[place] Estab. patient 10-29min; 1 minor problem; add add modifier 95 for video, modifier 93 for phone [facility] [place] 11/16/2024 Estab. patient 10-29min; 1 minor problem; add add modifier 95 for video, modifier 93 for phone [facility] [place] 11/16/2024 Vital Signs Date of Collection Vitals [...] tive Time Current Smoking Status Former smoker 2024-12-16 0 Sex Female History of Procedures Procedures Service Procedure code Service date Servicing provider Phone# New patient,40-59min; chronic exacerbation, 2 stable chronic or 1 acute illness add add modifier 95 for video (do not use for phone, instead use 57226-60) [id number] 2021-12-30 No Data Available No Data Availa [...] (do not use for phone, instead use 60904-50) [id number] 2023-01-26 No Data Available No Data Availa [...] (do not use for phone, instead use 27042-47) [id number] 2023-02-03 No Data Available No Data Availa [...] No Data Avail able No Data Available [id number] 2023-02-10 No Data Available No Data Available Pain Assessment - Pain Documented on a Pain Scale (1125F) 1125F 2023-02-10 No Data Available No Data Cecilia ilable Medication List Documented (1159F) 1159F 2023-02-10 No Data Available No Data Cecilia ilable No Data Available [id number] 2023-08-10 No Data Available No Data Available Medication List Documented (1159F) 1159F 2023-08-10 No Data Available No Data Cecilia ilable No Data Available [id number] 2023-08-24 No Data Available No Data Available SBP < 130 (3074F) 3074F 2023-08-24 No Data Available No Data Available DBP 80-89 (3079F) 3079F 2023-08-24 No Data Available No Data Available No Data Available [id number] 2023-09-01 No Data Available No Data Available No Data Available [id number] 2023-10-11 No Data Available No Data Available SBP >= 140 3077F 2023-10-11 No Data Available No Data Available DBP >=90 3080F 2023-10-11 No Data Available No Data Available Estab. patient 30-39min; chronic exacerbation, 2 stable chronic or 1 acute illness add add modifier 95 for video, (do not use for phone, instead use 74485-38) 54842 2023-10-19 No Data Available No Data Availa [...] No Data Availa ble No Data Available [id number] 2023-11-20 No Data Available No Data Available Medication List Documented (1159F) 1159F 2023-11-20 No Data Available No Data Cecilia ilable SBP < 130 (3074F) 3074F 2023-11-20 No Data Available No Data Available DBP 80-89 (3079F) 3079F 2023-11-20 No Data Available No Data Available No Data Available [id number] 2023-11-22 No Data Available No Data Available Medication List Documented (1159F) 1159F 2023-11-22 No Data Available No Data Cecilia ilable No Data Available [id number] 2024-01-09 No Data Available No Data Available Medication List Documented (1159F) 1159F 2024-01-09 No Data Available No Data Cecilia ilable Estab. patient 10-29min; 1 minor problem; add add modifier 95 for video, modifier 93 for phone [id number] 2024-02-20 No Data Available No Data Availa ble Medication List Documented (1159F) 1159F 2024-02-20 No Data Available No Data Cecilia ilable BMI obtained (3008F) 3008F 2024-02-20 No Data Availab le No Data Available Estab. patient 10-29min; 1 minor problem; add add modifier 95 for video, modifier 93 for phone [id number] 2024-03-04 No Data Available No Data Availa ble Estab. patient 20-29min; 1 stable chronic or 2 minor; add add modifier 95 for video, modifier 93 for phone [id number] 2024-04-26 No Data Available No Data Availa [...] 95 for video, modifier 93 for phone [id number] 2024-08-03 No Data Available No Data Availa ble Estab. patient 10-29min; 1 minor problem; add add modifier 95 for video, modifier 93 for phone [id number] 2024-09-02 No Data Available No Data Availa [...] 95 for video, modifier 93 for phone 62433 2024-10-16 No Data Available No Data Availa ble SBP 130-139 (3075F) 3075F 2024-10-16 No Data Availabl e No Data Available DBP >=90 3080F 2024-10-16 No Data Available No Data Available Estab. patient 10-29min; 1 minor problem; add add modifier 95 for video, modifier 93 for phone 68020 2024-11-16 No Data Available No Data Availa [...] 2023-10-11 10:54:55 Follow up plan for jordyn rosalese symptoms:UTI (urinary tract infection)Nausea 2023-10-19 12:15:00 Chronic [...] orally BID PRN muscle spasms/pain #30 tablet URb1oDn New Tylenol Extra Strength 500 mg Tab 2 tablet orally q 6hrs prn pain/fever #30 tablet TTi8mHo New Diclofenac Sodium 1 % Gel 4 grams topically to affected area 4 times per day PRN #100 gram JNs1yIq New Lidocaine 5 % Oint apply thin film to affected area TID prn pain #50 gram HOn9vIn New predniSONE 20 mg Tab Take 2 tablets twice daily for 3 days, 1 tablet twice daily for 2 days, and 1 tablet daily for 2 days. #18 tab MVo5fertsywa plan of care and conservative measures for [...] low abd pain. Please remember to call [facility] to see PCP. Follow-up with [facility] as needed for any acute or disease education needs that may arise 06/09.UTI (urinary tract infection)Nsfubg5810/11/2023eRx New Tylenol Extra Strength 500 mg Tab 2 tablet orally Q6hrs prn pain/fever #30 tablet YHs2rMv New Ondansetron 8 mg Tab Disintegrating 1 tablet orally every 8 hours as needed nausea #30 tablet XCz9hCl New Macrobid 100 mg Cap Take 1 [...] Documented (1125F)Continue to see PCP. Follow-up with [facility] as needed for any acute or disease education needs that may arise.Takes Tramadol 50 mg BID and has for 1+ yearsSafetyRisk of sedationSending Narcanhas been taking clonazepam for 10+ yearssafetyrisk of sedationFor many years.Now at pain clinic in [facility], began seeing them on 12/07.On TramadolTizanindineGabapentinClonazepamTramadolTizanindineGabapentinClonazepa [...] sedationFor many years.Now at pain clinic in [facility], began seeing them on 12/07.On TramadolTizanindineGabapentinClonazepamTramadolTizanindineGabapentinClonazepa [...] sedationFor many years.Now at pain clinic in [facility], began seeing them on 12/07.On RkwpvngmQptmkiywrvmVjpnwfujlaDxvgorlrdi55/21/2023ontinues with pain, poor historian, unclear how much pain she is having today, appears to be active but wwfpnmPbabxzbnRqotwgvmahaLciswscswrLtkcjrpldw68/21/2023ontinues with pain, pls cont tx as prescribed, [...] + days. Inhaler puffer 4/ day for vixmxtybtotnlbj36/21/2023Very difficult to assess. Not a relieble historian, [...] + days. Inhaler puffer 4/ day for zhshasossyuqzjx66/21/2023Very difficult to assess. Not a relieble historian, [...] inhalers/nebs.We will F/U next week.02/10 stable has yvjbwtfkHurwtbhgFhekbosyrmbIoiwdgyvbmHpqbbgvpsh85/21/2023ontinues with pain, pls cont tx as prescribed, reports she was told that PT was not viable. Will investigate.02/10 has had this for years, will refer to neurologist, denies any bowel or bladder dysfunctionFor many years.[place] [facility] began [facility] them on 12/07.On IhidtltlShlzelcxgztMicilchxwyHvwbsrlvei26/21/2023ontinues with pain, poor historian, unclear how much [...] orally BID PRN muscle spasms/pain #30 tablet JQl7sPi New Tylenol Extra Strength 500 mg Tab 2 tablet orally q 6hrs prn pain/fever #30 tablet BFt5uDf New Diclofenac Sodium 1 % Gel 4 grams topically to affected area 4 times per day PRN #100 gram BIq5gDn New Lidocaine 5 % Oint apply thin film to affected area TID prn pain #50 gram KFi0aLl New predniSONE 20 mg Tab Take 2 tablets twice daily for 3 days, 1 tablet twice daily for 2 days, and 1 tablet daily for 2 days. #18 tab [id number] plan of care and conservative measures for [...] low abd pain. Please remember to call [facility] to see PCP. Follow-up with M[facility] [...] tablet orally Q6hrs prn pain/fever #30 tablet UFs4rPa New Ondansetron 8 mg Tab Disintegrating 1 tablet orally every 8 hours as needed nausea #30 tablet JPb0dYd New Macrobid 100 mg Cap Take 1 [...] orally BID PRN muscle spasms/pain #30 tablet BCj8wZd New Tylenol Extra Strength 500 mg Tab 2 tablet orally q 6hrs prn pain/fever #30 tablet UHf3aRv New Diclofenac Sodium 1 % Gel 4 grams topically to affected area 4 times per day PRN #100 gram CSw9vQh New Lidocaine 5 % Oint apply thin film to affected area TID prn pain #50 gram LKn8wNc New predniSONE 20 mg Tab Take 2 tablets twice daily for 3 days, 1 tablet twice daily for 2 days, and 1 tablet daily for 2 days. #18 tab [id number] plan of care and conservative measures for [...] tablet orally Q6hrs prn pain/fever #30 tablet BKb9rRz New Ondansetron 8 mg Tab Disintegrating 1 tablet orally every 8 hours as needed nausea #30 tablet JMb6uIm New Macrobid 100 mg Cap Take 1 tablet PO twice daily for 7 days. #14 tablet RFx09/4/24: Improved per pt, denies ss today. 11/20/23:Member [...] orally BID PRN muscle spasms/pain #30 tablet NFm7jMu New Tylenol Extra Strength 500 mg Tab 2 tablet orally q 6hrs prn pain/fever #30 tablet XHh9nRo New Diclofenac Sodium 1 % Gel 4 grams topically to affected area 4 times per day PRN #100 gram WAm0aDd New Lidocaine 5 % Oint apply thin film to affected area TID prn pain #50 gram HYj6iOn New predniSONE 20 mg Tab Take 2 tablets twice daily for 3 days, 1 tablet twice daily for 2 days, and 1 tablet daily for 2 days. #18 tab BGq6mfuranio plan of care and conservative measures for [...] tablet orally Q6hrs prn pain/fever #30 tablet CXj8dOa New Ondansetron 8 mg Tab Disintegrating 1 tablet orally every 8 hours as needed nausea #30 tablet PDd1rJt New Macrobid 100 mg Cap Take 1 tablet PO twice daily for 7 days. #14 tablet RFx10/19/23: Improved per pt, denies ss today. 11/20/23:Member describing dysuria and recurrent UTI symptomsStart bactrim DS BID x 5 daysEncouraged increased fluid intake, especially waterAPP f/u is scheduled for 11/21 regarding back symptoms, but can call back sooner for any new or worsened qvdyuyqn51/8/24: Symptoms began 2 days ago on Tuesday. [...] low abd pain. [facility] Follow-up with [...] orally BID PRN muscle spasms/pain #30 tablet YMh5xBa New Tylenol Extra Strength 500 mg Tab 2 tablet orally q 6hrs prn pain/fever #30 tablet ZVa4eBp New Diclofenac Sodium 1 % Gel 4 grams topically to affected area 4 times per day PRN #100 gram ULf0lJf New Lidocaine 5 % Oint apply thin film to affected area TID prn pain #50 gram NIv3pEx New predniSONE 20 mg Tab Take 2 tablets twice daily for 3 days, 1 tablet twice daily for 2 days, and 1 tablet daily for 2 days. #18 tab VZm7fpxeynpr plan of care and conservative measures for [...] orally BID PRN muscle spasms/pain #30 tablet QMi8jFd New Tylenol Extra Strength 500 mg Tab 2 tablet orally q 6hrs prn pain/fever #30 tablet CEp5wXv New Diclofenac Sodium 1 % Gel 4 grams topically to affected area 4 times per day PRN #100 gram TIt8iLg New Lidocaine 5 % Oint apply thin film to affected area TID prn pain #50 gram RNf5tTs New predniSONE 20 mg Tab Take 2 tablets twice daily for 3 days, 1 tablet twice daily for 2 days, and 1 tablet daily for 2 days. #18 tab [id number] plan of care and conservative measures for [...] 45 tabs. [facility]When member to call: 1. If bp is elevated sbp>150; dbp>90 or symptomatic-h/a, dizziness, cp, sob. 2. if there is a fall 3. if BS >300 or BS<90 or symptomatic; i.e., dizzy, off balance , shaky, general weakness. 4. if UTI symptoms arise-urinary frequency, dysuria, low abd pain. [facility] Follow-up with [facility] as needed for any acute or disease education needs that may arise 06/09. 12:47:32 Televideo 10-29min; 1 minor problem; add add modifier 95 for video, modifier 93 for phoneContinue to see PCP. Follow-up with [facility] as needed for any acute or disease education needs that may arise 06/09.03/04/24- Azelastine 0.1 % Solution Nasal use 2 sprays in each nostril twice daily #1 each ZEv6Ttzkmg Promethazine-DM 6.25/15 mg/5ML Syrup 5 ml orally every 4-6 hours as needed for cough #200 ml NMp5Pir use cool mist vaporizer/humidifier next to bed [...] 80-89 ([id number])Continue to see PCP. Follow-up with [facility] as needed for any acute or [...] 45 tabs. [facility]: Tizanidine helps more than Flexeril. I last filled on 03/06/24 for 45 tabs, member requesting refill today, tolerating.Has been taking clonazepam for 10+ yearsDiscussed risk of sedationRx: Breo Elipta, Albuterol HFA PRN, Levalbuterol [facility] pulmonology follow up3/13/25: Saw her pulm today, she has URI symptoms. Has prescribed steroids but they do not agree with her stomach.03/04/24- Azelastine 0.1 % Solution Nasal use 2 sprays in each nostril twice daily #1 each ICk8Tpnpwe Promethazine-DM 6.25/15 mg/5ML Syrup 5 ml orally every 4-6 hours as needed for cough #200 ml FXa2Joz use cool mist vaporizer/humidifier next to bed [...] for phoneContinue to see PCP. Follow-up with [facility] as needed for any acute or disease education needs that may arise 06/09.08/03/24: Rx: Amoxicillin-Pot Clavulanate 875/125 mg Tab-Take 1 tablet PO twice daily for 7 days. (also treating URI) Advised to take Tylenol or ibuprofen. Rinse mouth with warm salt water. Follow up with a Dentist. Contact [facility] 06/09 for any new, worsening or continued symptoms.08/03/24: Rx: Amoxicillin-Pot Clavulanate 875/125 mg Tab-Take 1 tablet PO twice daily for 7 days (also treating dental abscess) Albuterol inhaler and nebs every 2 hrs as needed. Zyrtec (cetirizine) or Claritin (loratadine) or Benadryl daily. Drink hot tea with honey and lemon. Contact [facility] 06/09 for any new, worsening or continued symptoms.08/03/24: Rx: Docusate Sodium 100 mg Cap-1 capsule orally daily. Advised to increase fluids and fiber intake (eat prunes or prune juice daily). Take OTC MiraLAX, Senna-S or Dulcolax, Dulcolax suppository. [facility] for any new, worsening or continued symptoms. 14:33:54 Televideo 10-29min; 1 minor problem; add add modifier 95 for video, modifier 93 for phoneContinue to see PCP. [facility] or disease education needs that may arise 06/09.reviewed symptom management. Rest and push fluids. Tylenol prnOndansetron 8 mg Tab Disintegrating 1 tablet orally every 8 hours as needed nausea #20 tablet IQi0Vxdy for worsening symptoms. 15:03:15 Televideo 10-29min; 1 minor problem; add add modifier 95 for video, modifier 93 for phoneContinue to see PCP. [facility] or [...] for phoneContinue to see PCP. Follow-up with [facility] as needed for any acute or disease education needs that may arise 06/09.11/16/24: Rx: predniSONE 20 mg Tab-2 tabs daily x5 days. Benzonatate 200 mg Cap-1 capsule orally 3 times per day PRN cough. Albuterol inhaler every 2 hrs and nebs every 4 hrs as needed. Zyrtec (cetirizine) or Claritin (loratadine) or Benadryl daily. Drink hot tea with honey and lemon. Contact [facility] 06/09 for any new, worsening or continued symptoms after taking antibiotics for 3-4 days.11/16/24: Refilled tiZANidine 4 mg Tab-1 tablet two tablets a day as neededTylenol for pain. [facility] for any new, worsening or continued [...] or any other complications at this time. record retrieval specialist note reviewed.
== END 2025-01-03 10:14 | disposition home or self-care (01) ==
LOC: HO.PMC 09:40
PROVIDERS: PCP Internal Medicine; Visit Provider Anesthesiology
DX: M54.51 Vertebrogenic low back pain (principal); M47.816 Spondylosis without myelopathy or radiculopathy, lumbar region; G89.4 Chronic pain syndrome
CPT/HCPCS: 99213

== ENCOUNTER 2025-01-07 09:04 | Outpatient (REF) | payer OTHER, SELFPAY ==
[2025-01-07 10:08] LABS: Alanine Aminotransferase 13 U/L (0-31); Albumin Level 4.4 g/dL (3.5-5.0); Alkaline Phosphatase 118 U/L (39-117); Aspartate Amino Transferase 26 U/L (5-31); Cholesterol 157 mg/dL (<200); HDL Cholesterol 64 mg/dL (>40); Total Protein 6.9 g/dL (6.5-8.0); Triglycerides 64 mg/dL (<150)
== END 2025-01-07 09:05 | disposition home or self-care (01) ==
LOC: HO.LAB 09:04
PROVIDERS: PCP Internal Medicine
DX: E78.5 Hyperlipidemia, unspecified (principal)
CPT/HCPCS: 36415; 80061; 80076